=== PATIENT | male | born 1940 | race Two or more races ===

== ENCOUNTER 2020-06-16 16:25 | Outpatient (REF) | payer OTHER, SELFPAY | END 2020-06-16 16:26 | disposition home or self-care (01) | LOC: HO.LAB 16:25 | PROVIDERS: Visit Provider Internal Medicine | DX: Z20.828 Contact with and (suspected) exposure to other viral communicable diseases (principal) | CPT/HCPCS: C9803; U0003 ==

== ENCOUNTER 2020-07-02 11:10 | Inpatient (IN) | payer OTHER, SELFPAY ==
[2020-07-02 11:32] VITALS: BP 137/57; PULSE 61; RESP 20; TEMP 36.6; O2SAT 87; BMI 24.8
--- NOTE | 2020-07-02 11:37 | PC.NURSE ---
pt place on 2 l fio2 due to sats being low now 96%
[2020-07-02 11:38] VITALS: O2SAT 96
--- NOTE | 2020-07-02 11:56 | ECG_ITS ---
Test Reason : WEAKNESS Blood Pressure : / mmHG Vent. Rate : 066 BPM Atrial Rate : 066 BPM P-R Int : 000 ms QRS Dur : 178 ms QT Int : 496 ms P-R-T Axes : 000 -76 084 degrees QTc Int : 519 ms Ventricular-paced rhythm Possible Atrial fibrillation underlying Abnormal ECG When compared with ECG of 19-NOV-2013 03:57, Vent. rate has increased BY 4 BPM Referred By: Dameon Villalobos Electronically Signed By:DANAY WEBER MD
--- NOTE | 2020-07-02 11:58 | XR_ITS ---
EXAMINATION: XR CHEST CLINICAL INFORMATION: Shortness of breath,] positive COMPARISON: Chest 11/19/2013 TECHNIQUE: Frontal view of the chest was obtained. FINDINGS: The lungs are in moderate inspiration with prominent bilateral interstitium and patchy groundglass attenuation areas seen in both midlungs and left upper lobe. Heart size is enlarged. Pulmonary vascularity is normal. Mild spondylosis dorsal spine. There are solitary pacer electrode in the right ventricle XR/XR chest 1V IMPRESSION: There is bilateral prominent interstitium and groundglass attenuation seen throughout both lungs suspicious for underlying interstitial pneumonitis/infiltrate. Mild cardiomegaly
--- NOTE | 2020-07-02 12:02 | ED.GENADULT ---
HPI - General Adult General Chief complaint: Upper Respiratory Symptoms Stated complaint: +covid Time Seen by Provider: 07/02/20 11:40 Source: patient Mode of arrival: ambulatory Limitations: no limitations History of Present Illness HPI narrative: 79-year-old male who presents emergency department for evaluation shortness of breath and weakness. The patient was diagnosed with COVID on 06/16/2020 (16 days prior to evaluation). He states that over the past 1-2 days he has developed weakness and fatigue. He also states these had dyspnea on exertion but no shortness at rest. He has had a cough which is productive of sputum. He denied fever, chills, chest pain, abdominal pain, diarrhea, nausea, vomiting. He states that his weakness was concerning to him therefore he came to the emergency department for evaluation. Related Data Allergies Allergy/AdvReac Type Severity Reaction Status Date / Time No Known Allergies Allergy Unknown Unverified 03/05/20 15:58 NSAIDS due to CKD Allergy Unknown Uncoded 06/27/19 00:00 Review of Systems Review of Systems: Yes all other systems are reviewed and are negative Neurologic: Reports Abnormal speech present [facility] Past Medical History [facility] Narrative: The patient has a history of stroke with residual left-sided weakness, atrial fibrillation, pacemaker. He does smoke cigarettes, he denies alcohol tobacco use. Medical History (Updated 07/02/20 @ 14:33 by Dameon Villalobos MD) CVA (cerebral vascular accident) Diabetes mellitus GERD (gastroesophageal reflux disease) H/O: HTN (hypertension) Hyperlipidemia Pacemaker Persistent atrial fibrillation Social History Social History Advance Directives: No Advance Directives Information Provided: No Physical Exam Vital Signs: Vital Signs: Last Vital Signs Temp 97.8 F 07/02/20 11:32 Pulse 61 07/02/20 11:32 Resp 20 07/02/20 11:32 BP 137/57 L 07/02/20 11:32 Pulse Ox 96 07/02/20 11:38 Body Mass Index 24.8 Const: General: cooperative Orientation/consciousness: oriented to person and oriented to place Limitations: no limitations HENMT: Head: Yes normal to inspection, Yes normocephalic and Yes atraumatic Ears: external ears normal General nose exam: Normal external nose present Face and sinus: Yes normal facial exam Mouth: Normal oral and palatal mucosa present Throat: Yes posterior oropharynx normal Eyes: Periorbital: periorbital findings normal Eyelids: Yes eyelids normal Conjunctivae: conjunctivae normal Sclerae: sclerae normal Corneas: corneas normal Pupils: Equal, round and reactive pupils present Direct Ophthalmoscopy: normal light reflex Neck: Neck: Yes full ROM, Yes no lymphadenopathy, Yes no meningeal signs, Yes trachea midline and Yes supple Chest: Chest palpation & inspection: normal inspection of the chest and normal palpation of entire chest wall Resp: Effort & Inspection: normal respiratory effort and able to speak in complete sentences Auscultation: rales (Basis) bilateral (Left greater than right) Cardio: Rate: regular rate Rhythm: regular rhythm Heart sounds: S1 normal heart sound present, S2 normal heart sound present and no murmurs GI: Inspection: Yes normal to inspection Palpation (GI): Soft to palpation, nontender, no guarding, not rigid and No hepatosplenomegaly present : General: Yes no CVA tenderness Back/Spine/Pelvis: Back: no CVA tenderness Cervical Spine: normal cervical lordosis Thoracic/Lumbar Spine: thoracic and lumbar spine normal to inspection Skin: Lesions: no lesions Rashes: no rashes Wounds: no wounds Neuro: General: oriented to person, oriented to place and no meningeal signs Cranial nerves: Yes CN's II-XII intact bilaterally and Yes Equal, round and reactive pupils present Cognition (Neuro): normal cognition Speech: Abnormal speech present Motor exam (neuro): Other motor observations present (Weakness left upper extremity greater than left lower extremity) Extrem: General: Yes normal to inspection and Yes full ROM Left upper extremity: abnormal to inspection (Swelling of the left upper extremity secondary to immobility caused by para) Psych: Appearance: well kempt Mental Status: mental status grossly normal Speech and movement: Normal speech and movement present Affect: normal affect Attitude: cooperative Thought process: Normal thought process present Thought content: Normal thought content present Course Course Course Narrative: 79-year-old male who presents emergency department for weakness and shortness of breath, patient tested COVID 19 positive on June 16, 2020 (16 days prior to evaluation). On presentation the patient's O2 saturation on room air was 87 %. On 2 L of O2 saturation came up to 97%. Lung exam did reveal rales at the bases. I am concerned the patient may have COVID pneumonia. I did do a septic and cardiac workup on this patient. 1426: Patient's laboratory evaluation revealed a low white blood count of 3500. He had an elevated BUN creatinine 39 and 1.69 which is chronic. Patient's CRP, LDH and ferritin were all elevated at 9.2, 404, and 871. His lactic acid was normal. His troponin was detectable but not elevated. Twelve EKG revealed a paced rhythm. The patient is on Coumadin and his INR was therapeutic at 3.1. Chest x-ray revealed significant cardiomegaly with bilateral interstitial infiltrates with ground-glass appearance suggestive of a viral pneumonia. At this time I suspect the patient's worsening symptoms are due to COVID pneumonia. Given the fact that he has a viral pneumonia, I did not give this patient a fluid bolus since I do not think that he has sepsis and a fluid bolus could lead to worsening ARDS. I did order ceftriaxone 1 g IV, azithromycin 500 mg IV and Decadron 10 mg IV. I did discuss the patient's presentation with the nurse practitioner covering hospitalist service, Emily Squires and the patient will be admitted to the hospital service for further treatment. Medical Decision Making Lab Data Result diagrams: 07/02/20 12:20 07/02/20 12:20 Labs: Lab Results 07/02/20 07/02/20 07/02/20 Range/Units 12:20 12:20 12:20 WBC 10.7 (4.8-10.8) X10*3/uL RBC 3.53 L (4.60-5.80) X10*6/uL Hgb 10.8 L (14.0-18.0) g/dl Hct 33.6 L (42-52) % MCV 95.2 (80-98) fL MCH 30.6 (27.0-33.0) pg MCHC 32.1 (31.0-36.0) g/dl RDW 13.6 (11.0-16.0) % Plt Count 265 (160-400) X10*3/uL MPV 9.5 (9.4-12.4) fL Immature Gran % (Auto) 1.0 H (0.0-0.4) % Neut % (Auto) 67.4 (45-73) % Lymph % (Auto) 25.0 (20-40) % [place] % (Auto) 6.4 (2-11) % Eos % (Auto) 0.1 (0-4) % Baso % (Auto) 0.1 (0-2) % Lymph # (Auto) 2.7 (1.2-4.9) X10*3/uL [place] # (Auto) 0.7 (0.1-1.2) X10*3/uL Eos # (Auto) 0.0 (0.0-0.4) X10*3/uL Baso # (Auto) 0.0 (0.0-0.2) X10*3/uL Abs Immat Gran (auto) 0.11 H (0.00-0.03) X10*3/uL Absolute Neuts (auto) 7.2 (2.0-8.3) X10*3/uL Absolute Nucleated RBC 0.000 (0.0-0.012) X10*3/uL Nucleated RBC % (auto) 0.0 (0.0-0.2) /100WBC PT 37.0 H (10.8-13.0) SEC INR 3.1 H (0.9-1.1) APTT 36.4 (24.1-38.0) SEC D-Dimer 311 NG/ML Sodium 148 H (135-145) mmol/L Potassium 4.0 (3.3-5.1) mmol/l Chloride 110 H (96-108) mmol/L Carbon Dioxide 26 (22-29) mmol/L Anion Gap 16 (12-20) BUN 39 H (9-16) mg/dL Creatinine 1.69 H (0.5-1.4) mg/dL Estim Creat Clear Calc 33.6 Estimated GFR 39 Random Glucose 237 H (60-115) mg/dL Lactic Acid (0.5-2.0) mmol/L Calcium 8.1 L (8.4-10.2) mg/dL Ferritin 871 H (20-250) ng/mL Total Bilirubin 1.0 (0.0-1.0) mg/dL AST 53 H (5-37) U/L ALT 37 (0-40) U/L Alkaline Phosphatase 76 (39-117) U/L Lactate Dehydrogenase 404 H (118-273) U/L Troponin I High Sens (<3.5-35.0) ng/L C-Reactive Protein 9.20 H (< or = 0.50) mg/dL Total Protein 6.8 (6.5-8.0) g/dL Albumin 3.7 (3.5-5.0) g/dL Lipase 122 H (8-78) U/L 07/02/20 07/02/20 Range/Units 12:20 12:20 WBC (4.8-10.8) X10*3/uL RBC (4.60-5.80) X10*6/uL Hgb (14.0-18.0) g/dl Hct (42-52) % MCV (80-98) fL MCH (27.0-33.0) pg MCHC (31.0-36.0) g/dl RDW (11.0-16.0) % Plt Count (160-400) X10*3/uL MPV (9.4-12.4) fL Immature Gran % (Auto) (0.0-0.4) % Neut % (Auto) (45-73) % Lymph % (Auto) (20-40) % [place] % (Auto) (2-11) % Eos % (Auto) (0-4) % Baso % (Auto) (0-2) % Lymph # (Auto) (1.2-4.9) X10*3/uL [place] # (Auto) (0.1-1.2) X10*3/uL Eos # (Auto) (0.0-0.4) X10*3/uL Baso # (Auto) (0.0-0.2) X10*3/uL Abs Immat Gran (auto) (0.00-0.03) X10*3/uL Absolute Neuts (auto) (2.0-8.3) X10*3/uL Absolute Nucleated RBC (0.0-0.012) X10*3/uL Nucleated RBC % (auto) (0.0-0.2) /100WBC PT (10.8-13.0) SEC INR (0.9-1.1) APTT (24.1-38.0) SEC D-Dimer NG/ML Sodium (135-145) mmol/L Potassium (3.3-5.1) mmol/l Chloride (96-108) mmol/L Carbon Dioxide (22-29) mmol/L Anion Gap (12-20) BUN (9-16) mg/dL Creatinine (0.5-1.4) mg/dL Estim Creat Clear Calc Estimated GFR Random Glucose (60-115) mg/dL Lactic Acid 1.5 (0.5-2.0) mmol/L Calcium (8.4-10.2) mg/dL Ferritin (20-250) ng/mL Total Bilirubin (0.0-1.0) mg/dL AST (5-37) U/L ALT (0-40) U/L Alkaline Phosphatase (39-117) U/L Lactate Dehydrogenase (118-273) U/L Troponin I High Sens 23.2 (<3.5-35.0) ng/L C-Reactive Protein (< or = 0.50) mg/dL Total Protein (6.5-8.0) g/dL Albumin (3.5-5.0) g/dL Lipase (8-78) U/L Discharge Plan Discharge Clinical Impression: Pneumonia due to 2019 novel coronavirus, Hypoxia, Weakness Patient Disposition: Admitted As Inpatient
[2020-07-02 12:37] LABS: MANUAL DIFF FLAG NO
[2020-07-02 12:43] LABS: Basophils Percent Auto 0.1 % (0-2); Eosinophils Percent Auto 0.1 % (0-4); Hematocrit 33.6 % (42-52); Hemoglobin 10.8 g/dl (14.0-18.0); Imm Gran Abs Auto 0.11 X10*3/uL (0.00-0.03); Lymphocytes Absolute Auto 2.7 X10*3/uL (1.2-4.9); Mean Corpuscular HGB Conc 32.1 g/dl (31.0-36.0); Mean Corpuscular Hemoglobin 30.6 pg (27.0-33.0); Mean Corpuscular Volume 95.2 fL (80-98); Mean Platelet Volume 9.5 fL (9.4-12.4); Monocytes Absolute Auto 0.7 X10*3/uL (0.1-1.2); Monocytes Percent Auto 6.4 % (2-11); Neutrophils Absolute Auto 7.2 X10*3/uL (2.0-8.3); Neutrophils Percent Auto 67.4 % (45-73); Platelet Count 265 X10*3/uL (160-400); Red Blood Count 3.53 X10*6/uL (4.60-5.80); Red Cell Distribution Width 13.6 % (11.0-16.0); White Blood Count 10.7 X10*3/uL (4.8-10.8)
[2020-07-02 12:57] LABS: Lactic Acid 1.5 mmol/L (0.5-2.0)
[2020-07-02 12:58] LABS: INTERNATIONAL NORM RATIO 3.1 (0.9-1.1)
[2020-07-02 13:01] LABS: D Dimer 311 NG/ML; Partial Thromboplastin Time 36.4 SEC (24.1-38.0)
[2020-07-02 13:06] LABS: Troponin-I High Sensitivity 23.2 ng/L (<3.5-35.0)
[2020-07-02 13:35] LABS: Alanine Aminotransferase 37 U/L (0-40); Albumin Level 3.7 g/dL (3.5-5.0); Alkaline Phosphatase 76 U/L (39-117); Anion Gap 16 (12-20); Aspartate Amino Transferase 53 U/L (5-37); Blood Urea Nitrogen 39 mg/dL (9-16); Calcium 8.1 mg/dL (8.4-10.2); Carbon Dioxide 26 mmol/L (22-29); Chloride 110 mmol/L (96-108); Creatinine Clr Calc Pharmacy 33.6; Estimated Glomerular Filt Rate 39; Glucose Random 237 mg/dL (60-115); Lactate Dehydrogenase 404 U/L (118-273); Sodium 148 mmol/L (135-145); Total Protein 6.8 g/dL (6.5-8.0)
[2020-07-02 13:50] LABS: Ferritin 871 ng/mL (20-250)
[2020-07-02 13:57] LABS: Lipase 122 U/L (8-78)
[2020-07-02 14:00] VITALS: BP 133/57; PULSE 60; RESP 24; TEMP 36.8; O2SAT 98
--- NOTE | 2020-07-02 14:25 | PM.IMHP ---
Review of Systems Neurologic: Reports Abnormal speech present [facility] Medical History (Updated 07/02/20 @ 14:28 by Emily Squires NP) CVA (cerebral vascular accident) Diabetes mellitus GERD (gastroesophageal reflux disease) H/O: HTN (hypertension) Hyperlipidemia Pacemaker Persistent atrial fibrillation Social History Advance Directives: No Advance Directives Information Provided: No Meds Allergies Allergy/AdvReac Type Severity Reaction Status Date / Time No Known Allergies Allergy Unknown Unverified 03/05/20 15:58 NSAIDS due to CKD Allergy Unknown Uncoded 06/27/19 00:00 Physical Exam Vital Signs and Narrative: Vital Signs: Last Vital Signs Temp 97.8 F 07/02/20 11:32 Pulse 61 07/02/20 11:32 Resp 20 07/02/20 11:32 BP 137/57 L 07/02/20 11:32 Pulse Ox 96 07/02/20 11:38 Body Mass Index 24.8 Neuro: Speech: Abnormal speech present Results Labs CBC and Chem 7: 07/02/20 12:20 07/02/20 12:20 Labs: Laboratory Results - last 24 hr 07/02/20 07/02/20 07/02/20 12:20 12:20 12:20 MCV 95.2 MCH 30.6 MCHC 32.1 RDW 13.6 Plt Count 265 MPV 9.5 Immature Gran % (Auto) 1.0 H Neut % (Auto) 67.4 Lymph % (Auto) 25.0 [place] % (Auto) 6.4 Eos % (Auto) 0.1 Baso % (Auto) 0.1 Lymph # (Auto) 2.7 [place] # (Auto) 0.7 Eos # (Auto) 0.0 Baso # (Auto) 0.0 Abs Immat Gran (auto) 0.11 H Absolute Neuts (auto) 7.2 Absolute Nucleated RBC 0.000 Nucleated RBC % (auto) 0.0 PT 37.0 H INR 3.1 H APTT 36.4 D-Dimer 311 Anion Gap 16 Estim Creat Clear Calc 33.6 Estimated GFR 39 Random Glucose 237 H Lactic Acid Calcium 8.1 L Ferritin 871 H Total Bilirubin 1.0 AST 53 H ALT 37 Alkaline Phosphatase 76 Lactate Dehydrogenase 404 H Troponin I High Sens C-Reactive Protein 9.20 H Total Protein 6.8 Albumin 3.7 Lipase 122 H 07/02/20 07/02/20 12:20 12:20 MCV MCH MCHC RDW Plt Count MPV Immature Gran % (Auto) Neut % (Auto) Lymph % (Auto) [place] % (Auto) Eos % (Auto) Baso % (Auto) Lymph # (Auto) [place] # (Auto) Eos # (Auto) Baso # (Auto) Abs Immat Gran (auto) Absolute Neuts (auto) Absolute Nucleated RBC Nucleated RBC % (auto) PT INR APTT D-Dimer Anion Gap Estim Creat Clear Calc Estimated GFR Random Glucose Lactic Acid 1.5 Calcium Ferritin Total Bilirubin AST ALT Alkaline Phosphatase Lactate Dehydrogenase Troponin I High Sens 23.2 C-Reactive Protein Total Protein Albumin Lipase Imaging Radiologist's Impressions: Impressions Chest X-Ray 07/02/20 11:58 IMPRESSION: There is bilateral prominent interstitium and groundglass attenuation seen throughout both lungs suspicious for underlying interstitial pneumonitis/infiltrate. Mild cardiomegaly
[2020-07-02] MEDS: cefTRIAXone sodium 1 GM in 0.9 % Sodium Chloride 50 ML IV (14:39)
[2020-07-02 14:50] LABS: B Type Natriuretic Peptide 96 pg/mL (<100)
[2020-07-02 15:11] LABS: Procalcitonin 0.17 ng/mL
[2020-07-02] MEDS: Azithromycin 500 MG in 0.9 % Sodium Chloride 250 ML 125 MG IV (15:27)
[2020-07-02 15:52] VITALS: BP 132/59; PULSE 60; RESP 24; TEMP 36.9; O2SAT 99
--- NOTE | 2020-07-02 16:52 | PC.NURSE ---
pending report to floor to deisy rao
--- NOTE | 2020-07-02 17:08 | PC.NURSE ---
report given pending transport to floor
[2020-07-02 17:47] LABS: COVID-19 Test Positive (Negative)
--- NOTE | 2020-07-02 17:54 | P.EN_ITS ---
Event Note Date of Service: 07/02/20 Event Note: Patient seen examined case discussed with APC 79-year-old male with past medical history of CVA with left-sided hemiparesis, diabetes mellitus, GERD, hypertension, hyperlipidemia, chronic kidney disease, atrial fibrillation who presented to ER for shortness of breath,MERRILL and weakness, patient was diagnosed with COVID on 06/16/2020,no fever,no chills,no chest pain, no nausea, vomiting. Labs showed hematocrit 33.6, D-dimer 311, ferritin 871, LDH 404, CRP 9.20, l ipase 122, procalcitonin 0.17 Creatinine 1.7 INR 3.1 on exam Awake alert no distress Hypoxic respiratory failure secondary to COVID-19 infection, no sepsis will treat patient with IV dexamethasone hold off on antibiotic due to low procalcitonin continue supportive care, frequent position change incentive spirometry.
[2020-07-02 17:56] LABS: Sodium 147 mmol/L (135-145)
[2020-07-02] MEDS: Dextrose 5 % 1,000 ML 75 ML IVCONT (18:04)
[2020-07-02] MEDS: 0.9 % Sodium Chloride Flush 3 ML SYRINGE IVFLUSH (18:04)
[2020-07-02 18:08] LABS: Troponin-I High Sensitivity 16.3 ng/L (<3.5-35.0)
--- NOTE | 2020-07-02 18:38 | PC.NURSE ---
Patient admitted to [facility] [place] at approximately 1815. Vital stable on 2L NC. Started on D5 infusion for hypernatremia. Oriented to unit and room. Will continue to monitor.
[2020-07-02 19:40] VITALS: BP 146/70; PULSE 60; RESP 18; TEMP 36.7; O2SAT 96
[2020-07-02 20:49] VITALS: BP 146/70; PULSE 60
[2020-07-02] MEDS: Atorvastatin Calcium 40 MG TABLET PO (20:49)
[2020-07-02] MEDS: carvediloL 3.125 MG TABLET PO (20:49)
[2020-07-02] MEDS: Apixaban 5 MG TABLET PO (20:49)
[2020-07-03] VITALS (9 sets, daily range): BP systolic 114–156; BP diastolic 56–74; PULSE 59–70; RESP 16–20; TEMP 36.2–36.6; O2SAT 90–94
[2020-07-03] MEDS: Dextrose 5 % 1,000 ML 75 ML IVCONT ×2 (06:02→20:34)
[2020-07-03 06:26] LABS: MANUAL DIFF FLAG NO
[2020-07-03 06:41] LABS: Basophils Percent Auto 0.1 % (0-2); Hemoglobin 9.4 g/dl (14.0-18.0); Imm Gran Abs Auto 0.08 X10*3/uL (0.00-0.03); Imm Gran Pct Auto 1.1 % (0.0-0.4); Lymphocytes Absolute Auto 2.1 X10*3/uL (1.2-4.9); Lymphocytes Percent Auto 28.3 % (20-40); Mean Corpuscular HGB Conc 32.4 g/dl (31.0-36.0); Mean Corpuscular Hemoglobin 30.4 pg (27.0-33.0); Mean Corpuscular Volume 93.9 fL (80-98); Mean Platelet Volume 9.5 fL (9.4-12.4); Monocytes Absolute Auto 0.2 X10*3/uL (0.1-1.2); Monocytes Percent Auto 2.8 % (2-11); Neutrophils Absolute Auto 4.9 X10*3/uL (2.0-8.3); Neutrophils Percent Auto 67.7 % (45-73); Platelet Count 221 X10*3/uL (160-400); Red Blood Count 3.09 X10*6/uL (4.60-5.80); Red Cell Distribution Width 13.3 % (11.0-16.0); White Blood Count 7.2 X10*3/uL (4.8-10.8)
[2020-07-03 07:02] LABS: Anion Gap 14 (12-20); Blood Urea Nitrogen 38 mg/dL (9-16); Calcium 7.7 mg/dL (8.4-10.2); Carbon Dioxide 25 mmol/L (22-29); Chloride 108 mmol/L (96-108); Creatinine Clr Calc Pharmacy 37.9; Estimated Glomerular Filt Rate 45; Glucose Random 336 mg/dL (60-115); Potassium 4.1 mmol/l (3.3-5.1); Sodium 143 mmol/L (135-145)
[2020-07-03] MEDS: carvediloL 3.125 MG TABLET PO ×2 (09:08→20:35)
[2020-07-03] MEDS: Apixaban 5 MG TABLET PO ×2 (09:08→20:35)
[2020-07-03] MEDS: Losartan Potassium 50 MG TABLET PO (09:08)
[2020-07-03] MEDS: 0.9 % Sodium Chloride Flush 3 ML SYRINGE IVFLUSH ×2 (09:08→20:35)
[2020-07-03] MEDS: Omeprazole 20 MG CAPSULE.DR PO (09:10)
--- NOTE | 2020-07-03 09:45 | MHC.CM.PN ---
IMM 07/03/20 Male 79 dx covid+. [facility] His dtr is his [employer]. He uses a cane. 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 Family will provide transportation. CM will follow for change in DC needs.
[2020-07-03 11:42] LABS: Glucose, Whole Blood 349 mg/dL (60-115)
--- NOTE | 2020-07-03 13:32 | PC.NURSE ---
Addendum entered by Zluy Kendrick RN 07/03/20 16:43: new order for sliding scale. explained to pt reason for now getting insulin - pt agreeable Original Note: PT is a diabetic, reports no insulin at baseline. - took POC to get idea of blood sugar level - POC 349. No s/s of hyperglycemia. Notified MD as pt is getting IV fluids of D5 and also is being started on IV decadron. Discussing if should start pt on sliding scale - awaiting new orders at this time.
[2020-07-03] MEDS: dexAMETHasone sod phosphate 4 MG/ML VIAL 6 MG IVPUSH (14:13)
[2020-07-03 16:27] LABS: Glucose, Whole Blood 334 mg/dL (60-115)
--- NOTE | 2020-07-03 16:34 | P.PNIM_ITS ---
Subjective Subjective Date of Service: 07/03/20 Interval History: Patient seen and examined at bedside Patient Reported shortness of breath Neurologic Neurologic: Reports Abnormal speech present Physical Exam Vital Signs: Vital Signs: Last Vital Signs Temp 97.8 F 07/03/20 15:05 Pulse 59 07/03/20 15:05 Resp 20 07/03/20 15:05 BP 156/74 H 07/03/20 15:05 Pulse Ox 94 07/03/20 15:05 Body Mass Index 24.8 Const: General: cooperative Orientation/consciousness: oriented to person and oriented to place Limitations: no limitations HENMT: Head: Yes normal to inspection, Yes normocephalic and Yes atraumatic Ears: external ears normal General nose exam: Normal external nose present Face and sinus: Yes normal facial exam Mouth: Normal oral and palatal mucosa present Throat: Yes posterior oropharynx normal Eyes: Periorbital: periorbital findings normal Eyelids: Yes eyelids normal Conjunctivae: conjunctivae normal Sclerae: sclerae normal Corneas: corneas normal Pupils: Equal, round and reactive pupils present Direct Ophthalmoscopy: normal light reflex Neck: Neck: Yes full ROM, Yes no lymphadenopathy, Yes no meningeal signs, Yes trachea midline and Yes supple Chest: Chest palpation & inspection: normal inspection of the chest and normal palpation of entire chest wall Resp: Effort & Inspection: normal respiratory effort and able to speak in complete sentences Auscultation: rales (Basis) bilateral (Left greater than right) Cardio: Rate: regular rate Rhythm: regular rhythm Heart sounds: S1 normal heart sound present, S2 normal heart sound present and no murmurs GI: Inspection: Yes normal to inspection Palpation (GI): Soft to palpation, nontender, no guarding, not rigid and No hepatosplenomegaly present : General: Yes no CVA tenderness Back/Spine/Pelvis: Back: no CVA tenderness Cervical Spine: normal cervical lordosis Thoracic/Lumbar Spine: thoracic and lumbar spine normal to inspection Skin: Lesions: no lesions Rashes: no rashes Wounds: no wounds Neuro: General: oriented to person, oriented to place and no meningeal signs Cranial nerves: Yes CN's II-XII intact bilaterally and Yes Equal, round and reactive pupils present Cognition (Neuro): normal cognition Speech: Abnormal speech present Motor exam (neuro): Other motor observations present (Weakness left upper extremity greater than left lower extremity) Extrem: General: Yes normal to inspection and Yes full ROM Left upper extremity: abnormal to inspection (Swelling of the left upper extremity secondary to immobility caused by para) Psych: Appearance: well kempt Mental Status: mental status grossly normal Speech and movement: Normal speech and movement present Affect: normal affect Attitude: cooperative Thought process: Normal thought process present Thought content: Normal thought content present Objective Data Current Medications Generic Name Dose Route Start Last Admin Trade Name Freq PRN Reason Stop Dose Admin Acetaminophen 650 mg 07/02/20 17:20 Acetaminophen 325 Mg Tablet PO Q6H PRN Pain, Mild (Pain Scale 1-3) Apixaban 5 mg 07/02/20 21:00 07/03/20 09:08 Apixaban 5 Mg Tablet PO 5 mg BID LEYLA Administration Atorvastatin Calcium 40 mg 07/02/20 21:00 07/02/20 20:49 Atorvastatin Calcium 40 Mg Tablet PO 40 mg BEDTIME LEYLA Administration Carvedilol 3.125 mg 07/02/20 21:00 07/03/20 09:08 Carvedilol 3.125 Mg Tablet PO 3.125 mg BID LEYLA Administration Protocol Dexamethasone Sodium Phosphate 6 mg 07/03/20 14:00 07/03/20 14:13 Dexamethasone Sod Phosphate 4 Mg/Ml Vial IVPUSH 6 mg DAILY LEYLA Administration Dextrose 1,000 mls @ 75 mls/hr 07/02/20 17:20 07/03/20 06:02 D5w IVCONT 75 mls/hr .[id number] LEYLA Administration Insulin Human Lispro 0 unit 07/03/20 16:30 Insulin Lispro 100 Unit/Ml 3 Ml Vial SUBCUT QIDACHS [facility] Protocol Losartan Potassium 50 mg 07/03/20 09:00 07/03/20 09:08 Losartan Potassium 50 Mg Tablet PO 50 mg DAILY LEYLA Administration Protocol Omeprazole 20 mg 07/03/20 09:00 07/03/20 09:10 Omeprazole 20 Mg Capsule.Dr PO 20 mg DAILY LEYLA Administration Ondansetron HCl 4 mg 07/02/20 17:20 Ondansetron Hcl 4 Mg/2 Ml Vial IVPUSH Q8H PRN Nausea and Vomiting Pharmacy Consult 1 each 07/02/20 14:25 Consult Rx Perform Med Rec MISCELLANE ONCE PRN Consult order Sodium Chloride 3 ml 07/02/20 17:20 07/03/20 14:14 0.9 % Sodium Chloride Flush 3 Ml Syringe IVFLUSH Not Given QSHIFT LEYLA Labs CBC & Chem 7: 07/03/20 05:47 07/03/20 05:47 Microbiology Microbiology Results: Microbiology 07/02/20 12:20 Blood - Arterial Blood Culture - Preliminary No growth after 24 hours. 07/02/20 12:24 Blood - Arterial Blood Culture - Preliminary No growth after 24 hours. Assessment and Plan (1) Pneumonia due to 2019 novel coronavirus: Problem details: He has likely pulmonary damage from COVID,pulmonary fibrosis type symptoms Remdesivir and steroids not benefit this late stage Status: Acute (2) Hypoxia: Status: Acute (3) Weakness: Status: Acute (4) Persistent atrial fibrillation: Status: Acute Assessment and Plan: 79-year-old man who is being admitted with acute hypoxic respiratory failure secondary to Coronavirus infectious disease-19. 1. Acute hypoxic respiratory failure secondary to Coronavirus infectious disease-19 and viral pneumonia. continue dexamethasone . continue isolation and supportive management 2. Hypernatremia. Likely related to dehydration. continue D5 half NS sodium level closely. 3. Chronic kidney disease. Chronic . 4. Atrial fibrillation. Stable. Continue Eliquis and beta-ulises. 5. Diabetes mellitus, sliding scale, ADA diet. Continue glipizide. 6. Hypertension. Stable blood prssure. Continue losartan. 7. Gastroesophageal reflux disease. Continue PPI. 8. History of cerebrovascular accident. Continue statin. 9. Deep vein thrombosis prophylaxis with Eliquis.
--- NOTE | 2020-07-03 16:34 | P.CNID_ITS ---
History of Present Illness Data of Consult Service Date: 07/03/20 Requesting physician: Vargas Malone Primary Care Provider: MD BETTY Malik Reason for consult: COVID He presents to hospital with shortness of breath for 16 days He was diagnosed with COVID 16 days ago He has oxygen requirements 2 liters Review of Systems Neurologic: Reports Abnormal speech present PMFSH Past Medical History Medical History CVA (cerebral vascular accident) Diabetes mellitus GERD (gastroesophageal reflux disease) H/O: HTN (hypertension) Hyperlipidemia Pacemaker Persistent atrial fibrillation Family History Family history: reviewed and not pertinent Social History Social History Household Members: Family Housing: House Do you presently have visiting nurse or other home services: No Smoking Status: Former smoker Smoked in Last 30 Days: No Use of substances other than those prescribed or required for medical reasons: No Currently Displaying Signs/Symptoms of Drug Intoxication Withdrawal: No Any prior treatment program specific to substance use: No Have you been hit, kicked, punched, or otherwise hurt by someone within the past year? If so, by whom?: No Do you feel safe in your current relationship?: Yes Is there a partner from a previous relationship who is making you feel unsafe now?: No Are you made to feel afraid or neglected: No Advance Directives: No Advance Directives Information Provided: No Do you have thoughts of harming others: None Do you have a plan to hurt others: No Plan Recently lost weight without trying: No service: No Current occupational status: retired [employer] Allergies Allergy/AdvReac Type Severity Reaction Status Date / Time No Known Allergies Allergy Unknown Unverified 03/05/20 15:58 NSAIDS due to CKD Allergy Unknown Uncoded 06/27/19 00:00 Home Medications Medication Instructions Recorded Confirmed Type apixaban [Eliquis] 5 mg PO BID 07/02/20 07/02/20 History carvedilol 3.125 mg PO BID 07/02/20 07/02/20 History glipizide 5 mg PO DAILY 07/02/20 07/02/20 History losartan 50 mg PO DAILY 07/02/20 07/02/20 History melatonin 5 mg PO BEDTIME 07/02/20 07/02/20 History omeprazole 20 mg PO DAILY 07/02/20 07/02/20 History rosuvastatin 10 mg PO DAILY 07/02/20 07/02/20 History torsemide 40 mg PO BID 07/02/20 07/02/20 History Physical Exam Vital Signs: Vital Signs: Last Vital Signs Temp 97.8 F 07/03/20 15:05 Pulse 59 07/03/20 15:05 Resp 20 07/03/20 15:05 BP 156/74 H 07/03/20 15:05 Pulse Ox 94 07/03/20 15:05 Body Mass Index 24.8 Const: General: cooperative HENMT: Head: Yes normal to inspection Mouth: Normal oral and palatal mucosa present Eyes: General: appearance normal, both eyes and all related structures Resp: Effort & Inspection: normal respiratory effort GI: Inspection: Yes normal to inspection Skin: General skin exam: no rashes or lesions noted Neuro: Speech: Abnormal speech present Assessment and Plan (1) Pneumonia due to 2019 novel coronavirus: Problem details: He has likely pulmonary damage from COVID,pulmonary fibrosis type symptoms Remdesivir and steroids not benefit this late stage Status: Acute Would give oxygen support No Remdesivir or convalescent plasma May use steroids as needed (2) Hypoxia: Status: Acute Results Labs CBC & Chem 7: 07/03/20 05:47 07/03/20 05:47 Labs: Short CBC 07/03/20 Range/Units 05:47 WBC 7.2 (4.8-10.8) X10*3/uL Hgb 9.4 L (14.0-18.0) g/dl Hct 29.0 L (42-52) % Plt Count 221 (160-400) X10*3/uL BMP 07/02/20 07/03/20 17:29 05:47 Sodium 147 H 143 Potassium 4.1 Chloride 108 Carbon Dioxide 25 BUN 38 H Creatinine 1.50 H Calcium 7.7 L Microbiology Microbiology Results: Microbiology 07/02/20 12:20 Blood - Arterial Blood Culture - Preliminary No growth after 24 hours. 07/02/20 12:24 Blood - Arterial Blood Culture - Preliminary No growth after 24 hours.
[2020-07-03] MEDS: Insulin Lispro 100 UNIT/ML 3 ML VIAL SUBCUT ×2 (16:44→20:35)
[2020-07-03 20:25] LABS: Glucose, Whole Blood 333 mg/dL (60-115)
[2020-07-03] MEDS: Atorvastatin Calcium 40 MG TABLET PO (20:35)
[2020-07-04] VITALS (9 sets, daily range): BP systolic 124–144; BP diastolic 59–72; PULSE 60–62; RESP 18–20; TEMP 36.3–36.5; O2SAT 92–95
--- NOTE | 2020-07-04 05:45 | PC.NURSE ---
Alert and oriented x 4 primarily, coherent and conversant. Denied chest pain, headache or dizziness. Voided in the urinal . Lung sounds diminished with fine crackles at the bases, tolerating oxygen at 2 LPM via nasal cannula, No acute issues noted overnight. Will continue to monitor respiratory status.
[2020-07-04] MEDS: Insulin Lispro 100 UNIT/ML 3 ML VIAL SUBCUT ×4 (07:48→21:08)
[2020-07-04] MEDS: dexAMETHasone sod phosphate 4 MG/ML VIAL 6 MG IVPUSH (07:48)
[2020-07-04] MEDS: Losartan Potassium 50 MG TABLET PO (07:50)
[2020-07-04] MEDS: Apixaban 5 MG TABLET PO ×2 (07:50→21:08)
[2020-07-04] MEDS: Omeprazole 20 MG CAPSULE.DR PO (07:50)
[2020-07-04] MEDS: carvediloL 3.125 MG TABLET PO ×2 (07:50→21:08)
[2020-07-04] MEDS: 0.9 % Sodium Chloride Flush 3 ML SYRINGE IVFLUSH ×2 (07:51→15:46)
[2020-07-04] MEDS: Dextrose 5 % 1,000 ML 75 ML IVCONT ×2 (07:57→21:10)
[2020-07-04 08:05] LABS: Glucose, Whole Blood 257 mg/dL (60-115)
[2020-07-04 11:46] LABS: Glucose, Whole Blood 274 mg/dL (60-115)
--- NOTE | 2020-07-04 14:50 | HO.PM.IMPN ---
Subjective Subjective Date of Service: 07/04/20 Interval History: Patient seen and examined at bedside Patient Reported shortness of breath Neurologic Neurologic: Reports Abnormal speech present Physical Exam Vital Signs: Vital Signs: Last Vital Signs Temp 97.7 F 07/04/20 11:56 Pulse 60 07/04/20 11:56 Resp 20 07/04/20 11:56 BP 133/65 07/04/20 11:56 Pulse Ox 95 07/04/20 11:56 Body Mass Index 24.8 Const: General: cooperative Orientation/consciousness: oriented to person and oriented to place Limitations: no limitations HENMT: Head: Yes normal to inspection, Yes normocephalic and Yes atraumatic Ears: external ears normal General nose exam: Normal external nose present Face and sinus: Yes normal facial exam Mouth: Normal oral and palatal mucosa present Throat: Yes posterior oropharynx normal Eyes: Periorbital: periorbital findings normal Eyelids: Yes eyelids normal Conjunctivae: conjunctivae normal Sclerae: sclerae normal Corneas: corneas normal Pupils: Equal, round and reactive pupils present Direct Ophthalmoscopy: normal light reflex Neck: Neck: Yes full ROM, Yes no lymphadenopathy, Yes no meningeal signs, Yes trachea midline and Yes supple Chest: Chest palpation & inspection: normal inspection of the chest and normal palpation of entire chest wall Resp: Effort & Inspection: normal respiratory effort and able to speak in complete sentences Auscultation: rales (Basis) bilateral (Left greater than right) Cardio: Rate: regular rate Rhythm: regular rhythm Heart sounds: S1 normal heart sound present, S2 normal heart sound present and no murmurs GI: Inspection: Yes normal to inspection Palpation (GI): Soft to palpation, nontender, no guarding, not rigid and No hepatosplenomegaly present : General: Yes no CVA tenderness Back/Spine/Pelvis: Back: no CVA tenderness Cervical Spine: normal cervical lordosis Thoracic/Lumbar Spine: thoracic and lumbar spine normal to inspection Skin: Lesions: no lesions Rashes: no rashes Wounds: no wounds Neuro: General: oriented to person, oriented to place and no meningeal signs Cranial nerves: Yes CN's II-XII intact bilaterally and Yes Equal, round and reactive pupils present Cognition (Neuro): normal cognition Speech: Abnormal speech present Motor exam (neuro): Other motor observations present (Weakness left upper extremity greater than left lower extremity) Extrem: General: Yes normal to inspection and Yes full ROM Left upper extremity: abnormal to inspection (Swelling of the left upper extremity secondary to immobility caused by para) Psych: Appearance: well kempt Mental Status: mental status grossly normal Speech and movement: Normal speech and movement present Affect: normal affect Attitude: cooperative Thought process: Normal thought process present Thought content: Normal thought content present Objective Data Current Medications Generic Name Dose Route Start Last Admin Trade Name Freq PRN Reason Stop Dose Admin Acetaminophen 650 mg 07/02/20 17:20 Acetaminophen 325 Mg Tablet PO Q6H PRN Pain, Mild (Pain Scale 1-3) Apixaban 5 mg 07/02/20 21:00 07/04/20 07:50 Apixaban 5 Mg Tablet PO 5 mg BID LEYLA Administration Atorvastatin Calcium 40 mg 07/02/20 21:00 07/03/20 20:35 Atorvastatin Calcium 40 Mg Tablet PO 40 mg BEDTIME LEYLA Administration Carvedilol 3.125 mg 07/02/20 21:00 07/04/20 07:50 Carvedilol 3.125 Mg Tablet PO 3.125 mg BID LEYLA Administration Protocol Dexamethasone Sodium Phosphate 6 mg 07/03/20 14:00 07/04/20 07:48 Dexamethasone Sod Phosphate 4 Mg/Ml Vial IVPUSH 6 mg DAILY LEYLA Administration Dextrose 1,000 mls @ 75 mls/hr 07/02/20 17:20 07/04/20 07:57 D5w IVCONT 75 mls/hr .[id number] LEYLA Administration Insulin Human Lispro 0 unit 07/03/20 16:30 07/04/20 12:02 Insulin Lispro 100 Unit/Ml 3 Ml Vial SUBCUT 6 unit QIDACHS LEYLA Administration Protocol Losartan Potassium 50 mg 07/03/20 09:00 07/04/20 07:50 Losartan Potassium 50 Mg Tablet PO 50 mg DAILY LEYLA Administration Protocol Omeprazole 20 mg 07/03/20 09:00 07/04/20 07:50 Omeprazole 20 Mg Capsule.Dr PO 20 mg DAILY LEYLA Administration Ondansetron HCl 4 mg 07/02/20 17:20 Ondansetron Hcl 4 Mg/2 Ml Vial IVPUSH Q8H PRN Nausea and Vomiting Pharmacy Consult 1 each 07/02/20 14:25 Consult Rx Perform Med Rec MISCELLANE ONCE PRN Consult order Sodium Chloride 3 ml 07/02/20 17:20 07/04/20 07:51 0.9 % Sodium Chloride Flush 3 Ml Syringe IVFLUSH 3 ml QSHIFT LEYLA Administration Labs CBC & Chem 7: 07/03/20 05:47 07/03/20 05:47 Microbiology Microbiology Results: Microbiology 07/02/20 12:20 Blood - Arterial Blood Culture - Preliminary No growth after 48 hours. 07/02/20 12:24 Blood - Arterial Blood Culture - Preliminary No growth after 48 hours. Assessment and Plan (1) Pneumonia due to 2019 novel coronavirus: Status: Acute (2) Hypoxia: Status: Acute (3) Weakness: Status: Acute (4) Persistent atrial fibrillation: Status: Acute Assessment and Plan: 79-year-old man who is being admitted with acute hypoxic respiratory failure secondary to Coronavirus infectious disease-19. Acute hypoxic respiratory failure secondary to Coronavirus infectious disease-19 and viral pneumonia. continue dexamethasone continue isolation and supportive management Hypernatremia Likely related to dehydration resolving continue D5 half NS sodium level closely. Chronic kidney disease. Chronic Monitor kidney function Atrial fibrillation. Stable. Continue Eliquis and beta-ulises. Diabetes mellitus, continue sliding scale, ADA diet. Continue glipizide Hypertension. Stable blood prssure. Continue losartan Gastroesophageal reflux disease. Continue PPI History of cerebrovascular accident. Continue statin. Deep vein thrombosis prophylaxis with Eliquis.
[2020-07-04 16:32] LABS: Glucose, Whole Blood 334 mg/dL (60-115)
[2020-07-04 20:17] LABS: Glucose, Whole Blood 291 mg/dL (60-115)
[2020-07-04] MEDS: Atorvastatin Calcium 40 MG TABLET PO (21:08)
[2020-07-04] MEDS: traZODone HCL 25 MG HALFTAB PO (22:05)
[2020-07-05] VITALS (7 sets, daily range): BP systolic 129–148; BP diastolic 61–76; PULSE 60; RESP 17–20; TEMP 36–36.5; O2SAT 93–96
[2020-07-05] MEDS: Insulin Lispro 100 UNIT/ML 3 ML VIAL SUBCUT ×4 (09:19→20:44)
[2020-07-05] MEDS: Omeprazole 20 MG CAPSULE.DR PO (09:20)
[2020-07-05] MEDS: Apixaban 5 MG TABLET PO ×2 (09:20→20:42)
[2020-07-05] MEDS: 0.9 % Sodium Chloride Flush 3 ML SYRINGE IVFLUSH ×3 (09:20→20:47)
[2020-07-05] MEDS: Dextrose 5 % 1,000 ML 75 ML IVCONT (09:21)
[2020-07-05] MEDS: Losartan Potassium 50 MG TABLET PO (09:21)
[2020-07-05] MEDS: carvediloL 3.125 MG TABLET PO ×2 (09:24→20:44)
[2020-07-05] MEDS: dexAMETHasone sod phosphate 4 MG/ML VIAL 6 MG IVPUSH (09:28)
[2020-07-05 09:40] LABS: Glucose, Whole Blood 238 mg/dL (60-115)
[2020-07-05 09:57] LABS: Anion Gap 15 (12-20); Blood Urea Nitrogen 33 mg/dL (9-16); Calcium 7.6 mg/dL (8.4-10.2); Carbon Dioxide 22 mmol/L (22-29); Chloride 105 mmol/L (96-108); Creatinine Clr Calc Pharmacy 44.8; Estimated Glomerular Filt Rate 55; Glucose Random 249 mg/dL (60-115); Potassium 4.5 mmol/l (3.3-5.1); Sodium 137 mmol/L (135-145)
[2020-07-05 11:41] LABS: Glucose, Whole Blood 265 mg/dL (60-115)
--- NOTE | 2020-07-05 13:49 | HO.PM.IMPN ---
Subjective Subjective Date of Service: 07/06/20 Interval History: Patient seen and examined at bedside Patient Reported shortness of breath Neurologic Neurologic: Reports Abnormal speech present Physical Exam Vital Signs: Vital Signs: Last Vital Signs Temp 97.5 F 07/05/20 12:00 Pulse 60 07/05/20 12:00 Resp 18 07/05/20 12:00 BP 138/65 07/05/20 12:00 Pulse Ox 93 07/05/20 12:00 Body Mass Index 24.8 Const: General: cooperative Orientation/consciousness: oriented to person and oriented to place Limitations: no limitations HENMT: Head: Yes normal to inspection, Yes normocephalic and Yes atraumatic Ears: external ears normal General nose exam: Normal external nose present Face and sinus: Yes normal facial exam Mouth: Normal oral and palatal mucosa present Throat: Yes posterior oropharynx normal Eyes: Periorbital: periorbital findings normal Eyelids: Yes eyelids normal Conjunctivae: conjunctivae normal Sclerae: sclerae normal Corneas: corneas normal Pupils: Equal, round and reactive pupils present Direct Ophthalmoscopy: normal light reflex Neck: Neck: Yes full ROM, Yes no lymphadenopathy, Yes no meningeal signs, Yes trachea midline and Yes supple Chest: Chest palpation & inspection: normal inspection of the chest and normal palpation of entire chest wall Resp: Effort & Inspection: normal respiratory effort and able to speak in complete sentences Auscultation: rales (Basis) bilateral (Left greater than right) Cardio: Rate: regular rate Rhythm: regular rhythm Heart sounds: S1 normal heart sound present, S2 normal heart sound present and no murmurs GI: Inspection: Yes normal to inspection Palpation (GI): Soft to palpation, nontender, no guarding, not rigid and No hepatosplenomegaly present : General: Yes no CVA tenderness Back/Spine/Pelvis: Back: no CVA tenderness Cervical Spine: normal cervical lordosis Thoracic/Lumbar Spine: thoracic and lumbar spine normal to inspection Skin: Lesions: no lesions Rashes: no rashes Wounds: no wounds Neuro: General: oriented to person, oriented to place and no meningeal signs Cranial nerves: Yes CN's II-XII intact bilaterally and Yes Equal, round and reactive pupils present Cognition (Neuro): normal cognition Speech: Abnormal speech present Motor exam (neuro): Other motor observations present (Weakness left upper extremity greater than left lower extremity) Extrem: General: Yes normal to inspection and Yes full ROM Left upper extremity: abnormal to inspection (Swelling of the left upper extremity secondary to immobility caused by para) Psych: Appearance: well kempt Mental Status: mental status grossly normal Speech and movement: Normal speech and movement present Affect: normal affect Attitude: cooperative Thought process: Normal thought process present Thought content: Normal thought content present Objective Data Current Medications Generic Name Dose Route Start Last Admin Trade Name Freq PRN Reason Stop Dose Admin Acetaminophen 650 mg 07/02/20 17:20 Acetaminophen 325 Mg Tablet PO Q6H PRN Pain, Mild (Pain Scale 1-3) Apixaban 5 mg 07/02/20 21:00 07/05/20 09:20 Apixaban 5 Mg Tablet PO 5 mg BID LEYLA Administration Atorvastatin Calcium 40 mg 07/02/20 21:00 07/04/20 21:08 Atorvastatin Calcium 40 Mg Tablet PO 40 mg BEDTIME LEYLA Administration Carvedilol 3.125 mg 07/02/20 21:00 07/05/20 09:24 Carvedilol 3.125 Mg Tablet PO 3.125 mg BID LEYLA Administration Protocol Dexamethasone Sodium Phosphate 6 mg 07/03/20 14:00 07/05/20 09:28 Dexamethasone Sod Phosphate 4 Mg/Ml Vial IVPUSH 6 mg DAILY LEYLA Administration Dextrose 1,000 mls @ 75 mls/hr 07/02/20 17:20 07/05/20 09:21 D5w IVCONT 75 mls/hr .[id number] LEYLA Administration Insulin Human Lispro 0 unit 07/03/20 16:30 07/05/20 11:35 Insulin Lispro 100 Unit/Ml 3 Ml Vial SUBCUT 6 unit QIDACHS LEYLA Administration Protocol Losartan Potassium 50 mg 07/03/20 09:00 07/05/20 09:21 Losartan Potassium 50 Mg Tablet PO 50 mg DAILY LEYLA Administration Protocol Omeprazole 20 mg 07/03/20 09:00 07/05/20 09:20 Omeprazole 20 Mg Capsule.Dr PO 20 mg DAILY LEYLA Administration Ondansetron HCl 4 mg 07/02/20 17:20 Ondansetron Hcl 4 Mg/2 Ml Vial IVPUSH Q8H PRN Nausea and Vomiting Pharmacy Consult 1 each 07/02/20 14:25 Consult Rx Perform Med Rec MISCELLANE ONCE PRN Consult order Sodium Chloride 3 ml 07/02/20 17:20 07/05/20 09:20 0.9 % Sodium Chloride Flush 3 Ml Syringe IVFLUSH 3 ml QSHIFT LEYLA Administration Trazodone HCl 25 mg 07/04/20 21:38 07/04/20 22:05 Trazodone Hcl 25 Mg Halftab PO 25 mg BEDTIME PRN Administration Sleep Labs CBC & Chem 7: 07/03/20 05:47 07/05/20 09:27 Microbiology Microbiology Results: Microbiology 07/02/20 12:20 Blood - Arterial Blood Culture - Preliminary No growth after 48 hours. 07/02/20 12:24 Blood - Arterial Blood Culture - Preliminary No growth after 48 hours. Assessment and Plan (1) Pneumonia due to 2019 novel coronavirus: Status: Acute (2) Hypoxia: Status: Acute (3) Weakness: Status: Acute (4) Persistent atrial fibrillation: Status: Acute Assessment and Plan: 79-year-old man who is being admitted with acute hypoxic respiratory failure secondary to Coronavirus infectious disease-19. Acute hypoxic respiratory failure secondary to Coronavirus infectious disease-19 and viral pneumonia. continue dexamethasone continue isolation and supportive management Hypernatremia Likely related to dehydration resolved will stop D5 half NS sodium level closely. Chronic kidney disease. Chronic Monitor kidney function Atrial fibrillation. Stable. Continue Eliquis and beta-ulises. Diabetes mellitus, continue sliding scale, ADA diet. Continue glipizide Hypertension. Stable blood prssure. Continue losartan Gastroesophageal reflux disease. Continue PPI History of cerebrovascular accident. Continue statin. Deep vein thrombosis prophylaxis with Eliquis.
[2020-07-05 16:52] LABS: Glucose, Whole Blood 251 mg/dL (60-115)
[2020-07-05] MEDS: Atorvastatin Calcium 40 MG TABLET PO (20:42)
[2020-07-05 20:45] LABS: Glucose, Whole Blood 213 mg/dL (60-115)
[2020-07-06] VITALS (8 sets, daily range): BP systolic 122–136; BP diastolic 59–75; PULSE 60; RESP 19–20; TEMP 35.8–36.6; O2SAT 91–95
[2020-07-06 08:10] LABS: Glucose, Whole Blood 107 mg/dL (60-115)
[2020-07-06] MEDS: Apixaban 5 MG TABLET PO ×2 (09:38→20:52)
[2020-07-06] MEDS: 0.9 % Sodium Chloride Flush 3 ML SYRINGE IVFLUSH ×3 (09:38→20:53)
[2020-07-06] MEDS: Losartan Potassium 50 MG TABLET PO (09:39)
[2020-07-06] MEDS: carvediloL 3.125 MG TABLET PO ×2 (09:40→20:52)
[2020-07-06] MEDS: dexAMETHasone sod phosphate 4 MG/ML VIAL 6 MG IVPUSH (09:41)
[2020-07-06] MEDS: Omeprazole 20 MG CAPSULE.DR PO (09:41)
[2020-07-06 12:05] LABS: Glucose, Whole Blood 129 mg/dL (60-115)
--- NOTE | 2020-07-06 13:47 | HO.PM.IMPN ---
Subjective Subjective Date of Service: 07/06/20 Interval History: Patient seen and examined at bedside Patient Reported shortness of breath Neurologic Neurologic: Reports Abnormal speech present Physical Exam Vital Signs: Vital Signs: Last Vital Signs Temp 97.7 F 07/06/20 11:51 Pulse 60 07/06/20 11:51 Resp 20 07/06/20 11:51 BP 136/63 07/06/20 11:51 Pulse Ox 91 L 07/06/20 11:51 Body Mass Index 24.8 Const: General: cooperative Orientation/consciousness: oriented to person and oriented to place Limitations: no limitations HENMT: Head: Yes normal to inspection, Yes normocephalic and Yes atraumatic Ears: external ears normal General nose exam: Normal external nose present Face and sinus: Yes normal facial exam Mouth: Normal oral and palatal mucosa present Throat: Yes posterior oropharynx normal Eyes: Periorbital: periorbital findings normal Eyelids: Yes eyelids normal Conjunctivae: conjunctivae normal Sclerae: sclerae normal Corneas: corneas normal Pupils: Equal, round and reactive pupils present Direct Ophthalmoscopy: normal light reflex Neck: Neck: Yes full ROM, Yes no lymphadenopathy, Yes no meningeal signs, Yes trachea midline and Yes supple Chest: Chest palpation & inspection: normal inspection of the chest and normal palpation of entire chest wall Resp: Effort & Inspection: normal respiratory effort and able to speak in complete sentences Auscultation: rales (Basis) bilateral (Left greater than right) Cardio: Rate: regular rate Rhythm: regular rhythm Heart sounds: S1 normal heart sound present, S2 normal heart sound present and no murmurs GI: Inspection: Yes normal to inspection Palpation (GI): Soft to palpation, nontender, no guarding, not rigid and No hepatosplenomegaly present : General: Yes no CVA tenderness Back/Spine/Pelvis: Back: no CVA tenderness Cervical Spine: normal cervical lordosis Thoracic/Lumbar Spine: thoracic and lumbar spine normal to inspection Skin: Lesions: no lesions Rashes: no rashes Wounds: no wounds Neuro: General: oriented to person, oriented to place and no meningeal signs Cranial nerves: Yes CN's II-XII intact bilaterally and Yes Equal, round and reactive pupils present Cognition (Neuro): normal cognition Speech: Abnormal speech present Motor exam (neuro): Other motor observations present (Weakness left upper extremity greater than left lower extremity) Extrem: General: Yes normal to inspection and Yes full ROM Left upper extremity: abnormal to inspection (Swelling of the left upper extremity secondary to immobility caused by para) Psych: Appearance: well kempt Mental Status: mental status grossly normal Speech and movement: Normal speech and movement present Affect: normal affect Attitude: cooperative Thought process: Normal thought process present Thought content: Normal thought content present Objective Data Current Medications Generic Name Dose Route Start Last Admin Trade Name Freq PRN Reason Stop Dose Admin Acetaminophen 650 mg 07/02/20 17:20 Acetaminophen 325 Mg Tablet PO Q6H PRN Pain, Mild (Pain Scale 1-3) Apixaban 5 mg 07/02/20 21:00 07/06/20 09:38 Apixaban 5 Mg Tablet PO 5 mg BID LEYLA Administration Atorvastatin Calcium 40 mg 07/02/20 21:00 07/05/20 20:42 Atorvastatin Calcium 40 Mg Tablet PO 40 mg BEDTIME LEYLA Administration Carvedilol 3.125 mg 07/02/20 21:00 07/06/20 09:40 Carvedilol 3.125 Mg Tablet PO 3.125 mg BID ELYLA Administration Protocol Dexamethasone Sodium Phosphate 6 mg 07/03/20 14:00 07/06/20 09:41 Dexamethasone Sod Phosphate 4 Mg/Ml Vial IVPUSH 6 mg DAILY LEYLA Administration Insulin Human Lispro 0 unit 07/03/20 16:30 07/06/20 12:20 Insulin Lispro 100 Unit/Ml 3 Ml Vial SUBCUT Not Given QIDACHS [facility] Protocol Losartan Potassium 50 mg 07/03/20 09:00 07/06/20 09:39 Losartan Potassium 50 Mg Tablet PO 50 mg DAILY LEYLA Administration Protocol Omeprazole 20 mg 07/03/20 09:00 07/06/20 09:41 Omeprazole 20 Mg Capsule.Dr PO 20 mg DAILY LEYLA Administration Ondansetron HCl 4 mg 07/02/20 17:20 Ondansetron Hcl 4 Mg/2 Ml Vial IVPUSH Q8H PRN Nausea and Vomiting Pharmacy Consult 1 each 07/02/20 14:25 Consult Rx Perform Med Rec MISCELLANE ONCE PRN Consult order Sodium Chloride 3 ml 07/02/20 17:20 07/06/20 09:38 0.9 % Sodium Chloride Flush 3 Ml Syringe IVFLUSH 3 ml QSHIFT LEYLA Administration Trazodone HCl 25 mg 07/04/20 21:38 07/04/20 22:05 Trazodone Hcl 25 Mg Halftab PO 25 mg BEDTIME PRN Administration Sleep Labs CBC & Chem 7: 07/03/20 05:47 07/05/20 09:27 Microbiology Microbiology Results: Microbiology 07/02/20 12:20 Blood - Arterial Blood Culture - Preliminary No growth after 48 hours. 07/02/20 12:24 Blood - Arterial Blood Culture - Preliminary No growth after 48 hours. Assessment and Plan (1) Pneumonia due to 2019 novel coronavirus: Status: Acute (2) Hypoxia: Status: Acute (3) Weakness: Status: Acute (4) Persistent atrial fibrillation: Status: Acute Assessment and Plan: 79-year-old man who is being admitted with acute hypoxic respiratory failure secondary to Coronavirus infectious disease-19. Acute hypoxic respiratory failure secondary to Coronavirus infectious disease-19 and viral pneumonia. continue dexamethasone continue isolation and supportive management continue oxygen supplementation weaned down as tolerated Hypernatremia Likely related to dehydration resolved D5 half NS stopped sodium level closely. Chronic kidney disease. Chronic Monitor kidney function Atrial fibrillation. Stable. Continue Eliquis and beta-ulises. Diabetes mellitus, continue sliding scale, ADA diet. Continue glipizide Hypertension. Stable blood prssure. Continue losartan Gastroesophageal reflux disease. Continue PPI History of cerebrovascular accident. Continue statin. Deep vein thrombosis prophylaxis with Eliquis.
--- NOTE | 2020-07-06 14:24 | MHC.CM.PN ---
DP home with resumption of [employer]. Family will provide transportation. CM will follow.
[2020-07-06 16:35] LABS: Glucose, Whole Blood 256 mg/dL (60-115)
[2020-07-06] MEDS: Insulin Lispro 100 UNIT/ML 3 ML VIAL SUBCUT ×2 (17:03→20:53)
[2020-07-06 20:16] LABS: Glucose, Whole Blood 213 mg/dL (60-115)
[2020-07-06] MEDS: Atorvastatin Calcium 40 MG TABLET PO (20:52)
[2020-07-07 04:00] VITALS: BP 137/72; PULSE 65; RESP 18; TEMP 36.9; O2SAT 92
[2020-07-07 07:03] VITALS: BP 119/60; PULSE 60; RESP 18; TEMP 36.6; O2SAT 94
[2020-07-07 08:03] LABS: Glucose, Whole Blood 145 mg/dL (60-115)
[2020-07-07 08:18] VITALS: BP 119/60; PULSE 60
[2020-07-07] MEDS: Apixaban 5 MG TABLET PO (08:18)
[2020-07-07] MEDS: 0.9 % Sodium Chloride Flush 3 ML SYRINGE IVFLUSH (08:18)
[2020-07-07] MEDS: carvediloL 3.125 MG TABLET PO (08:18)
[2020-07-07] MEDS: Losartan Potassium 50 MG TABLET PO (08:18)
[2020-07-07] MEDS: Omeprazole 20 MG CAPSULE.DR PO (08:19)
[2020-07-07] MEDS: dexAMETHasone sod phosphate 4 MG/ML VIAL 6 MG IVPUSH (08:20)
[2020-07-07 10:41] VITALS: PULSE 60; PULSE 68; O2SAT 87; O2SAT 91; O2SAT 94
[2020-07-07 10:55] VITALS: BP 119/60; PULSE 60
[2020-07-07 11:30] VITALS: BP 99/47; PULSE 60; RESP 16; TEMP 36.6; O2SAT 94
[2020-07-07 11:41] LABS: Glucose, Whole Blood 186 mg/dL (60-115)
--- NOTE | 2020-07-07 11:43 | MHC.CM.PN ---
Patient will be discharged home today with PT services from [facility]. Family will provide transport, lives with granddaughter. Patient and nurse aware.
[2020-07-07] MEDS: Insulin Lispro 100 UNIT/ML 3 ML VIAL SUBCUT (11:45)
--- NOTE | 2020-07-07 12:03 | W.MHC.F2F ---
Service Date Service Date: 07/07/20 Encounter Date of encounter: 07/05/20 Reasons for Services Reason for physical therapy: home safety and mobility and therapeutic exercises Overseeing Care: Juan M Name Homebound: Leaving the home is medically contraindicated at this time without the asist of a device and/or another person due th the listed conditions above and below. Homebound supporting statement: COVID weakness Certification: Based on the above findings, I certify that this patient is confined to the home and needs intermittent intermediate care, physical therapy and/or speech therapy, or continues to need occupational therapy. The patient is under my care, and I have initiated the establishment of the plan of care. The patient will be followed by a physician who will periodically review the plan of care.
--- NOTE | 2020-07-07 12:09 | PM.DS ---
DS: Providers Provider Date of Service: 07/07/20 Date of admission: 07/02/20 15:29 Primary care physician: Juan M Rogers MD Consults: 07/02/20 17:20 Consult to Infectious Diseases Routine Consulting Provider: Suzy Kurtz Reason for consultation: COVID 19 Has provider been notified: No DS: Diagnosis Discharge Diagnosis (1) Pneumonia due to 2019 novel coronavirus: Status: Acute (2) Hypoxia: Status: Acute (3) Weakness: Status: Acute (4) Persistent atrial fibrillation: Status: Acute DS: Medications Discharge Medications Home Medications: Home Medications Medication Instructions Recorded Confirmed Eliquis 5 mg PO BID 07/02/20 07/02/20 carvedilol 3.125 mg PO BID 07/02/20 07/02/20 glipizide 5 mg PO DAILY 07/02/20 07/02/20 losartan 50 mg PO DAILY 07/02/20 07/02/20 melatonin 5 mg PO BEDTIME 07/02/20 07/02/20 omeprazole 20 mg PO DAILY 07/02/20 07/02/20 rosuvastatin 10 mg PO DAILY 07/02/20 07/02/20 torsemide 40 mg PO BID 07/02/20 07/02/20 Previous Rx's Medication Instructions Recorded dexamethasone 6 mg PO DAILY #4 tab 07/07/20 DS: Summary Hospital Course Hospital Course: HPI 79-year-old man presented with complaint of worsening shortness of breath over the last week. He was diagnosed with Coronavirus on June 16 and reported that he had been quarrenting in his home. However, over the last week he has developed increasing weakness, shortness of breath and fatigue. He denied any fever, chills, chest pain, nausea, vomiting, diarrhea. In the ER, chest x-ray showed bilateral prominent interstitium and ground-glass attenuation in both lungs. He was noted to be hypoxic with oxygen saturation of 87%. Sodium 148, creatinine 1.69 with history of chronic kidney disease. Ferritin 871, LDH 404, CRP 9.20, procalcitonin 0.17, BNP 96. He was given azithromycin, Rocephin, and Decadron while in the ER. He will be admitted for further management and treatment of acute hypoxic respiratory failure secondary to COVID-19. Hospital course 79-year-old male admitted with acute hypoxic respiratory failure likely secondary to COVID pneumonia, patient was started on oxygen supplementation IV dexamethasone and supportive management, patient also found to have mild hypernatremia received D5 NS, hypernatremia resolved, patient's symptoms improved, patient was requiring 2 L of oxygen and was stable, patient was evaluated for home oxygen, patient qualifies for 2 L of oxygen, patient was stable discharged home with visiting nurse on home oxygen and p.o. dexamethasone Time Spent with Patient Time attestation: Total time spent providing and/or coordinating discharge services: Discharge coordination time: Greater than 30 minutes Physical Exam Vital Signs: Vital Signs: Last Vital Signs Temp 97.8 F 07/07/20 11:30 Pulse 60 07/07/20 11:30 Resp 16 07/07/20 11:30 BP 99/47 L 07/07/20 11:30 Pulse Ox 94 07/07/20 11:30 Body Mass Index 24.8 DS: Data Data Completed and Pending Labs on day of discharge: Laboratory Tests 07/02/20 07/02/20 07/02/20 12:20 12:20 12:20 WBC 10.7 RBC 3.53 L Hgb 10.8 L Hct 33.6 L MCV 95.2 MCH 30.6 MCHC 32.1 RDW 13.6 Plt Count 265 MPV 9.5 Immature Gran % (Auto) 1.0 H Neut % (Auto) 67.4 Lymph % (Auto) 25.0 Garfield % (Auto) 6.4 Eos % (Auto) 0.1 Baso % (Auto) 0.1 Lymph # (Auto) 2.7 Garfield # (Auto) 0.7 Eos # (Auto) 0.0 Baso # (Auto) 0.0 Abs Immat Gran (auto) 0.11 H Absolute Neuts (auto) 7.2 Absolute Nucleated RBC 0.000 Nucleated RBC % (auto) 0.0 PT 37.0 H INR 3.1 H APTT 36.4 D-Dimer 311 Sodium 148 H Potassium 4.0 Chloride 110 H Carbon Dioxide 26 Anion Gap 16 BUN 39 H Creatinine 1.69 H Estim Creat Clear Calc 33.6 Estimated GFR 39 POC Glucose Random Glucose 237 H Lactic Acid Calcium 8.1 L Ferritin 871 H Total Bilirubin 1.0 AST 53 H ALT 37 Alkaline Phosphatase 76 Lactate Dehydrogenase 404 H Troponin I High Sens C-Reactive Protein 9.20 H B-Natriuretic Peptide Total Protein 6.8 Albumin 3.7 Lipase 122 H Procalcitonin COVID-19 (JOÃO) COVID-19 [facility] 07/02/20 07/02/20 07/02/20 12:20 12:20 12:20 WBC RBC Hgb Hct MCV MCH MCHC RDW Plt Count MPV Immature Gran % (Auto) Neut % (Auto) Lymph % (Auto) [place] % (Auto) Eos % (Auto) Baso % (Auto) Lymph # (Auto) [place] # (Auto) Eos # (Auto) Baso # (Auto) Abs Immat Gran (auto) Absolute Neuts (auto) Absolute Nucleated RBC Nucleated RBC % (auto) PT INR APTT D-Dimer Sodium Potassium Chloride Carbon Dioxide Anion Gap BUN Creatinine Estim Creat Clear Calc Estimated GFR POC Glucose Random Glucose Lactic Acid 1.5 Calcium Ferritin Total Bilirubin AST ALT Alkaline Phosphatase Lactate Dehydrogenase Troponin I High Sens 23.2 C-Reactive Protein B-Natriuretic Peptide 96 Total Protein Albumin Lipase Procalcitonin 0.17 COVID-19 ([facility]) COVID-19 [facility] 07/02/20 07/02/20 07/02/20 17:29 17:29 17:29 WBC RBC Hgb Hct MCV MCH MCHC RDW Plt Count MPV Immature Gran % (Auto) Neut % (Auto) Lymph % (Auto) [place]field % (Auto) Eos % (Auto) Baso % (Auto) Lymph # (Auto) [place] # (Auto) Eos # (Auto) Baso # (Auto) Abs Immat Gran (auto) Absolute Neuts (auto) Absolute Nucleated RBC Nucleated RBC % (auto) PT INR APTT D-Dimer Sodium 147 H Potassium Chloride Carbon Dioxide Anion Gap BUN Creatinine Estim Creat Clear Calc Estimated GFR POC Glucose Random Glucose Lactic Acid Calcium Ferritin Total Bilirubin AST ALT Alkaline Phosphatase Lactate Dehydrogenase Troponin I High Sens 16.3 C-Reactive Protein B-Natriuretic Peptide Total Protein Albumin Lipase Procalcitonin COVID-19 ([facility]O) Positive A COVID-19 [facility] See Note 07/03/20 07/03/20 07/03/20 05:47 05:47 11:33 WBC 7.2 RBC 3.09 L Hgb 9.4 L Hct 29.0 L MCV 93.9 MCH 30.4 MCHC 32.4 RDW 13.3 Plt Count 221 MPV 9.5 Immature Gran % (Auto) 1.1 H Neut % (Auto) 67.7 Lymph % (Auto) 28.3 Garfield % (Auto) 2.8 Eos % (Auto) 0.0 Baso % (Auto) 0.1 Lymph # (Auto) 2.1 Garfield # (Auto) 0.2 Eos # (Auto) 0.0 Baso # (Auto) 0.0 Abs Immat Gran (auto) 0.08 H Absolute Neuts (auto) 4.9 Absolute Nucleated RBC 0.000 Nucleated RBC % (auto) 0.0 PT INR APTT D-Dimer Sodium 143 Potassium 4.1 Chloride 108 Carbon Dioxide 25 Anion Gap 14 BUN 38 H Creatinine 1.50 H Estim Creat Clear Calc 37.9 Estimated GFR 45 POC Glucose 349 H Random Glucose 336 H D Lactic Acid Calcium 7.7 L Ferritin Total Bilirubin AST ALT Alkaline Phosphatase Lactate Dehydrogenase Troponin I High Sens C-Reactive Protein B-Natriuretic Peptide Total Protein Albumin Lipase Procalcitonin COVID-19 ([facility]) COVID-19 [facility] 07/03/20 07/03/20 07/04/20 16:19 20:05 07:44 WBC RBC Hgb Hct MCV MCH MCHC RDW Plt Count MPV Immature Gran % (Auto) Neut % (Auto) Lymph % (Auto) [place]field % (Auto) Eos % (Auto) Baso % (Auto) Lymph # (Auto) [place] # (Auto) Eos # (Auto) Baso # (Auto) Abs Immat Gran (auto) Absolute Neuts (auto) Absolute Nucleated RBC Nucleated RBC % (auto) PT INR APTT D-Dimer Sodium Potassium Chloride Carbon Dioxide Anion Gap BUN Creatinine Estim Creat Clear Calc Estimated GFR POC Glucose 334 H 333 H 257 H Random Glucose Lactic Acid Calcium Ferritin Total Bilirubin AST ALT Alkaline Phosphatase Lactate Dehydrogenase Troponin I High Sens C-Reactive Protein B-Natriuretic Peptide Total Protein Albumin Lipase Procalcitonin COVID-19 ([facility]) COVID-19 [facility] 07/04/20 07/04/20 07/04/20 11:37 16:26 20:02 WBC RBC Hgb Hct MCV MCH MCHC RDW Plt Count MPV Immature Gran % (Auto) Neut % (Auto) Lymph % (Auto) Garfield % (Auto) Eos % (Auto) Baso % (Auto) Lymph # (Auto) [place] # (Auto) Eos # (Auto) Baso # (Auto) Abs Immat Gran (auto) Absolute Neuts (auto) Absolute Nucleated RBC Nucleated RBC % (auto) PT INR APTT D-Dimer Sodium Potassium Chloride Carbon Dioxide Anion Gap BUN Creatinine Estim Creat Clear Calc Estimated GFR POC Glucose 274 H 334 H 291 H Random Glucose Lactic Acid Calcium Ferritin Total Bilirubin AST ALT Alkaline Phosphatase Lactate Dehydrogenase Troponin I High Sens C-Reactive Protein B-Natriuretic Peptide Total Protein Albumin Lipase Procalcitonin COVID-19 ([facility]) COVID-19 Clin Com 07/05/20 07/05/20 07/05/20 09:08 09:27 11:23 WBC RBC Hgb Hct MCV MCH MCHC RDW Plt Count MPV Immature Gran % (Auto) Neut % (Auto) Lymph % (Auto) [place]field % (Auto) Eos % (Auto) Baso % (Auto) Lymph # (Auto) [place] # (Auto) Eos # (Auto) Baso # (Auto) Abs Immat Gran (auto) Absolute Neuts (auto) Absolute Nucleated RBC Nucleated RBC % (auto) PT INR APTT D-Dimer Sodium 137 Potassium 4.5 Chloride 105 Carbon Dioxide 22 Anion Gap 15 BUN 33 H Creatinine 1.27 Estim Creat Clear Calc 44.8 Estimated GFR 55 POC Glucose 238 H 265 H Random Glucose 249 H Lactic Acid Calcium 7.6 L Ferritin Total Bilirubin AST ALT Alkaline Phosphatase Lactate Dehydrogenase Troponin I High Sens C-Reactive Protein B-Natriuretic Peptide Total Protein Albumin Lipase Procalcitonin COVID-19 ([facility]) COVID-19 Clin Com 07/05/20 07/05/20 07/06/20 16:44 20:21 07:55 WBC RBC Hgb Hct MCV MCH MCHC RDW Plt Count MPV Immature Gran % (Auto) Neut % (Auto) Lymph % (Auto) [place]field % (Auto) Eos % (Auto) Baso % (Auto) Lymph # (Auto) [place] # (Auto) Eos # (Auto) Baso # (Auto) Abs Immat Gran (auto) Absolute Neuts (auto) Absolute Nucleated RBC Nucleated RBC % (auto) PT INR APTT D-Dimer Sodium Potassium Chloride Carbon Dioxide Anion Gap BUN Creatinine Estim Creat Clear Calc Estimated GFR POC Glucose 251 H 213 H 107 Random Glucose Lactic Acid Calcium Ferritin Total Bilirubin AST ALT Alkaline Phosphatase Lactate Dehydrogenase Troponin I High Sens C-Reactive Protein B-Natriuretic Peptide Total Protein Albumin Lipase Procalcitonin COVID-19 ([facility]) COVID-19 Clin Com 01/07/06/20 07/06/20 11:51 16:32 20:07 WBC RBC Hgb Hct MCV MCH MCHC RDW Plt Count MPV Immature Gran % (Auto) Neut % (Auto) Lymph % (Auto) [place]field % (Auto) Eos % (Auto) Baso % (Auto) Lymph # (Auto) [place]field # (Auto) Eos # (Auto) Baso # (Auto) Abs Immat Gran (auto) Absolute Neuts (auto) Absolute Nucleated RBC Nucleated RBC % (auto) PT INR APTT D-Dimer Sodium Potassium Chloride Carbon Dioxide Anion Gap BUN Creatinine Estim Creat Clear Calc Estimated GFR POC Glucose 129 H 256 H 213 H Random Glucose Lactic Acid Calcium Ferritin Total Bilirubin AST ALT Alkaline Phosphatase Lactate Dehydrogenase Troponin I High Sens C-Reactive Protein B-Natriuretic Peptide Total Protein Albumin Lipase Procalcitonin COVID-19 ([facility]) [employer] 07/07/20 07/07/20 07:06 11:34 WBC RBC Hgb Hct MCV MCH MCHC RDW Plt Count MPV Immature Gran % (Auto) Neut % (Auto) Lymph % (Auto) [place]field % (Auto) Eos % (Auto) Baso % (Auto) Lymph # (Auto) [place]field # (Auto) Eos # (Auto) Baso # (Auto) Abs Immat Gran (auto) Absolute Neuts (auto) Absolute Nucleated RBC Nucleated RBC % (auto) PT INR APTT D-Dimer Sodium Potassium Chloride Carbon Dioxide Anion Gap BUN Creatinine Estim Creat Clear Calc Estimated GFR POC Glucose 145 H 186 H Random Glucose Lactic Acid Calcium Ferritin Total Bilirubin AST ALT Alkaline Phosphatase Lactate Dehydrogenase Troponin I High Sens C-Reactive Protein B-Natriuretic Peptide Total Protein Albumin Lipase Procalcitonin COVID-19 ([facility]) COVID-19 [facility] Preliminary micro results at discharge 07/02/20 12:20 Blood Culture - Preliminary Blood - Arterial No growth after 48 hours. 07/02/20 12:24 Blood Culture - Preliminary Blood - Arterial No growth after 48 hours. Discharge Plan Discharge Anticipated Discharge Date/Time: 07/07/20 11:25 Patient Disposition: Home Health Service Referrals: Name,MD Juan M [Primary Care Provider] - Discharge Medications: New dexamethasone 6 mg tablet 6 mg PO DAILY Qty: 4 RF: 0 Continued losartan 50 mg Tablet 50 mg PO DAILY RF: 0 carvedilol 3.125 mg Tablet 3.125 mg PO BID RF: 0 omeprazole 20 mg Capsule,Delayed Release(Dr/Ec) 20 mg PO DAILY RF: 0 rosuvastatin 10 mg Tablet 10 mg PO DAILY RF: 0 melatonin 5 mg Tablet 5 mg PO BEDTIME RF: 0 Eliquis 5 mg Tablet 5 mg PO BID RF: 0 torsemide 20 mg Tablet 40 mg PO BID RF: 0 glipizide 5 mg Tablet 5 mg PO DAILY RF: 0 Discharge Orders: Discharge Order (Routine); Ordered 07/07/20 Ordered By: Vargas Malone Diet: advance to usual diet Activity on Discharge: As tolerated Discharge Date/Time: 07/07/20 15:38 Visit Report Forms: Patient Portal Discharge page Care Plan Goals: treat covid Health Concerns: covid Plan of Treatment: po dexa home oxygen
== END 2020-07-07 15:38 | disposition home health service (06) | DRG 177 ==
LOC: HO.ED 14:33 → HO.IMC 16:20
PROVIDERS: Nurse Practitioner Acute Care; Admitting Provider Hospitalist; Emergency Provider Emergency Medicine Emergency Medical Services; PCP Internal Medicine Geriatric Medicine; Visit Provider Internal Medicine
DX: U07.1 COVID-19 (principal); J12.82 Pneumonia due to coronavirus disease 2019; I69.954 Hemiplegia and hemiparesis following unspecified cerebrovascular disease affecting left non-dominant side; I48.19 Other persistent atrial fibrillation; E87.0 Hyperosmolality and hypernatremia; K21.9 Gastro-esophageal reflux disease without esophagitis; I12.9 Hypertensive chronic kidney disease with stage 1 through stage 4 chronic kidney disease, or unspecified chronic kidney disease; N18.9 Chronic kidney disease, unspecified; E86.0 Dehydration; Z79.01 Long term (current) use of anticoagulants; Z79.899 Other long term (current) drug therapy
CPT/HCPCS: 11104; 36415; 71045; 80048; 80053; 82728; 82947; 83605; 83615; 83690; 83880; 84145; 84295; 84484; 85025; 85379; 85610; 85730; 86140; 87040; 87635; 93005; 96365; 96366; 96367; 96375; 97162; 99285; J0456; J0696; J1100

== ENCOUNTER 2020-07-16 16:30 | Inpatient (IN) | payer OTHER, SELFPAY ==
[2020-07-16] VITALS (7 sets, daily range): BP systolic 100–120; BP diastolic 46–60; PULSE 59–66; RESP 16–18; TEMP 36.4–36.9; O2SAT 94–98; BMI 26.9
--- NOTE | 2020-07-16 18:47 | ED.WEAKNESS ---
HPI - Weakness General Chief complaint: Weakness Stated complaint: ?Dheydration/Weakness Time Seen by Provider: 07/16/20 18:45 Source: patient Mode of arrival: ambulatory Limitations: no limitations History of Present Illness HPI Narrative: This is a 79-year-old male with past medical history that is significant for chronic kidney disease, atrial fibrillation chronically anticoagulated on Eliquis and on a beta ulises, insulin-dependent diabetes, hypertension on losartan, gastroesophageal reflux disease on PPI, history of a CVA on statin who had some COVID symptoms and contracted COVID July 02 he had COVID pneumonia on a and rib hypoxic respiratory failure secondary to this required some oxygen and was discharged to home on the of this month states he got somewhat better and over the past several days he has not had any energy and feels overall weak. Denies any fever or chills. States he called his primary care doctor with complaint of a generalized weakness and lack of energy and was advised to come to the emergency room. States he has been taking his medication as prescribed No recent travel No change in medication Has not required any oxygen for the past 5 days or so. Complaint: generalized weakness Onset (ago): day(s) Location: generalized Severity: moderate Relieving factors: none Exacerbating factors: none Related Data Home Medications Medication Instructions Recorded Confirmed Eliquis 5 mg PO BID 07/02/20 07/02/20 carvedilol 3.125 mg PO BID 07/02/20 07/02/20 glipizide 5 mg PO DAILY 07/02/20 07/02/20 losartan 50 mg PO DAILY 07/02/20 07/02/20 melatonin 5 mg PO BEDTIME 07/02/20 07/02/20 omeprazole 20 mg PO DAILY 07/02/20 07/02/20 rosuvastatin 10 mg PO DAILY 07/02/20 07/02/20 torsemide 40 mg PO BID 07/02/20 07/02/20 Previous Rx's Medication Instructions Recorded dexamethasone 6 mg PO DAILY #4 tab 07/07/20 Allergies Allergy/AdvReac Type Severity Reaction Status Date / Time No Known Allergies Allergy Unknown Unverified 03/05/20 15:58 NSAIDS due to CKD Allergy Unknown Uncoded 06/27/19 00:00 Review of Systems Review of Systems: Constitutional: No Weight loss, No Fever, No Chills, No Night Sweats, No Fatigue, No Malaise ENT/Mouth: No Hearing loss, No Ear Pain, No Nasal Congestion, No Sinus Pain, No Hoarseness, No sore throat, No Rhinorrhea, No Swallowing Difficulty Eyes: No Eye Pain, No Swelling, No Redness, No Foreign Body, No Discharge, No Vision Changes Cardiovascular: No Chest Pain, No SOB, No Dyspnea on Exertion, No Orthopnea, No Edema, No Palpitations Respiratory: No Cough, No Sputum, No Wheezing, No Smoke Exposure, No Dyspnea . Gastrointestinal: No Nausea, No Vomiting, No Diarrhea, No Constipation, No abdominal Pain, No Hematochezia, No Melena Genitourinary: No Dysuria, No Urinary Frequency, No Hematuria, No Urinary Incontinence, No Urgency, No Flank Pain, No Urinary Flow Changes, No Hesitancy Musculoskeletal: No joint pain, No Myalgias, No Joint Swelling Skin: No Skin Lesions, No rash Neuro: + Weakness, No Numbness, No Paresthesias, No Loss of Consciousness, No Dizziness, No Headache Psych: No Social Issues Heme/Lymph: No Bruising, No Bleeding,No Lymphadenopathy Endocrine: No Polyuria, No Polydipsia, No Temperature Intolerance Yes all other systems are reviewed and are negative FOR[facility]LY [facility] Past Medical History Medical History CVA (cerebral vascular accident) Diabetes mellitus GERD (gastroesophageal reflux disease) H/O: HTN (hypertension) Hyperlipidemia Pacemaker Persistent atrial fibrillation Social History Social History Household Members: Family Housing: House Alcohol intake: never Smoking Status: Former smoker Use of substances other than those prescribed or required for medical reasons: No Advance Directives: No Advance Directives Information Provided: No service: No Current occupational status: retired Physical Exam Vital Signs: Vital Signs: Last Vital Signs Temp 97.6 F 07/16/20 18:55 Pulse 61 07/16/20 21:10 Resp 18 07/16/20 21:10 BP 103/46 L 07/16/20 21:10 Pulse Ox 98 07/16/20 21:10 Body Mass Index 26.9 Reviewed Const: Other: Frail, elderly General: cooperative; No acute distress or intoxicated appearing Nutritional Appearance: average body habitus Orientation/consciousness: patient oriented x3 HENMT: Head: Yes normal to inspection Ears: hearing grossly normal bilaterally Eyes: General: appearance normal, both eyes and all related structures Visual Don: normal visual don by confrontation Neck: Neck: Yes normal visual inspection, No positive Brudzinski's sign, No positive Kernig's sign and No tender Thyroid: Thyroid normal Chest: Chest palpation & inspection: normal inspection of the chest Resp: Effort & Inspection: normal respiratory effort Auscultation: clear to auscultation bilaterally Cardio: Jugular venous distension: no JVD Rhythm: abnormal rhythm (V paced) GI: Inspection: Yes normal to inspection Percussion: Yes normal to percussion Auscultation: normal bowel sounds : General: Yes no CVA tenderness Back/Spine/Pelvis: Back: no CVA tenderness Skin: General skin exam: no rashes or lesions noted Neuro: General: patient oriented x3 Extrem: General: Yes normal to inspection Course Course Course Narrative: In review 79-year-old male with significant history as noted above presenting with generalized weakness decreased p.o. intake status post hospitalization for COVID 19 related pneumonia/hypoxic respiratory failure in relation to his respiratory symptoms he reports he is feeling much better he denies any fever or chills no cough. Workup reveals CKD with acute GOOD and electrolyte derangements consistent with COVID-19 disease. No signs to suggest bacterial infection. Patient hydrated bladder had 200 cc on the bedside bladder scan Burrell catheter placed given fluids and urine lytes studies in. Case discussed with Nephrology Dr. Munoz as well as hospitalist for admission. Consultations Consultation #1: [id number] Case discussed with hospitalist for admission accepted to service Dr. Veloz Consultation #2: [id number] Case discussed with Nephrology Alexander- agreeable plan will follow in the morning urine studies. MDM - Weakness Differential Diagnosis Differential diagnosis: Likely anemia, hypoglycemia and dehydration; Unlikely UTI, hypothyroidism, rhabdomyolysis and sepsis Medical Records Attestation: I reviewed the patient's medical records. Lab Data Attestation: I reviewed the patient's lab results. Result diagrams: 07/16/20 20:04 07/16/20 20:04 Labs: Lab Results 07/16/20 07/16/20 07/16/20 Range/Units 20:04 20:04 20:04 WBC 15.8 H (4.8-10.8) X10*3/uL RBC 4.22 L D (4.60-5.80) X10*6/uL Hgb 12.8 L D (14.0-18.0) g/dl Hct 38.0 L D (42-52) % MCV 90.0 (80-98) fL MCH 30.3 (27.0-33.0) pg MCHC 33.7 (31.0-36.0) g/dl RDW 14.0 (11.0-16.0) % Plt Count 194 (160-400) X10*3/uL MPV 10.5 (9.4-12.4) fL Immature Gran % (Auto) 0.4 (0.0-0.4) % Neut % (Auto) 69.6 (45-73) % Lymph % (Auto) 24.7 (20-40) % [place] % (Auto) 4.6 (2-11) % Eos % (Auto) 0.6 (0-4) % Baso % (Auto) 0.1 (0-2) % Lymph # (Auto) 3.9 (1.2-4.9) X10*3/uL [place] # (Auto) 0.7 (0.1-1.2) X10*3/uL Eos # (Auto) 0.1 (0.0-0.4) X10*3/uL Baso # (Auto) 0.0 (0.0-0.2) X10*3/uL Abs Immat Gran (auto) 0.06 H (0.00-0.03) X10*3/uL Absolute Neuts (auto) 11.0 H (2.0-8.3) X10*3/uL Absolute Nucleated RBC 0.000 (0.0-0.012) X10*3/uL Nucleated RBC % (auto) 0.0 (0.0-0.2) /100WBC PT 27.2 H D (10.8-13.0) SEC INR 2.3 H (0.9-1.1) APTT 38.5 H (24.1-38.0) SEC Sodium 136 (135-145) mmol/L Potassium 4.1 (3.3-5.1) mmol/l Chloride 94 L (96-108) mmol/L Carbon Dioxide 27 (22-29) mmol/L Anion Gap 19 (12-20) BUN 88 H* D (9-16) mg/dL Creatinine 2.31 H (0.5-1.4) mg/dL Estim Creat Clear Calc 24.6 Estimated GFR 28 Random Glucose 204 H (60-115) mg/dL Lactic Acid (0.5-2.0) mmol/L Calcium 8.2 L D (8.4-10.2) mg/dL Ferritin 1157 H (20-250) ng/mL Total Bilirubin 1.9 H (0.0-1.0) mg/dL AST 34 (5-37) U/L ALT 30 (0-40) U/L Alkaline Phosphatase 80 (39-117) U/L Lactate Dehydrogenase 348 H (118-273) U/L Troponin I High Sens (<3.5-35.0) ng/L C-Reactive Protein 0.26 (< or = 0.50) mg/dL Total Protein 7.0 (6.5-8.0) g/dL Albumin 3.6 (3.5-5.0) g/dL Procalcitonin ng/mL 07/16/20 07/16/20 07/16/20 Range/Units 20:04 20:04 20:04 WBC (4.8-10.8) X10*3/uL RBC (4.60-5.80) X10*6/uL Hgb (14.0-18.0) g/dl Hct (42-52) % MCV (80-98) fL MCH (27.0-33.0) pg MCHC (31.0-36.0) g/dl RDW (11.0-16.0) % Plt Count (160-400) X10*3/uL MPV (9.4-12.4) fL Immature Gran % (Auto) (0.0-0.4) % Neut % (Auto) (45-73) % Lymph % (Auto) (20-40) % [place] % (Auto) (2-11) % Eos % (Auto) (0-4) % Baso % (Auto) (0-2) % Lymph # (Auto) (1.2-4.9) X10*3/uL [place] # (Auto) (0.1-1.2) X10*3/uL Eos # (Auto) (0.0-0.4) X10*3/uL Baso # (Auto) (0.0-0.2) X10*3/uL Abs Immat Gran (auto) (0.00-0.03) X10*3/uL Absolute Neuts (auto) (2.0-8.3) X10*3/uL Absolute Nucleated RBC (0.0-0.012) X10*3/uL Nucleated RBC % (auto) (0.0-0.2) /100WBC PT (10.8-13.0) SEC INR (0.9-1.1) APTT (24.1-38.0) SEC Sodium (135-145) mmol/L Potassium (3.3-5.1) mmol/l Chloride (96-108) mmol/L Carbon Dioxide (22-29) mmol/L Anion Gap (12-20) BUN (9-16) mg/dL Creatinine (0.5-1.4) mg/dL Estim Creat Clear Calc Estimated GFR Random Glucose (60-115) mg/dL Lactic Acid 1.8 (0.5-2.0) mmol/L Calcium (8.4-10.2) mg/dL Ferritin (20-250) ng/mL Total Bilirubin (0.0-1.0) mg/dL AST (5-37) U/L ALT (0-40) U/L Alkaline Phosphatase (39-117) U/L Lactate Dehydrogenase (118-273) U/L Troponin I High Sens 24.3 (<3.5-35.0) ng/L C-Reactive Protein (< or = 0.50) mg/dL Total Protein (6.5-8.0) g/dL Albumin (3.5-5.0) g/dL Procalcitonin 0.11 ng/mL Imaging Data Chest x-ray: Radiologist's impression: [address] [id number] ReportSigned Patient: Esdras SepulvedaR#: [id number]: 2Acct:[id number]/Sex: 79 / MADM Date: 01/28/21Loc: HO.EDAttending Dr: Ordering Physician: Pravin Agarwal NP Date of Service: 07/16/20 Procedure(s): XR chest 1V Accession Number(s): [id number] cc: Pravin Agarwal TUNGSTEN TENDER~ EXAMINATION: XR CHEST CLINICAL INFORMATION: Weakness COMPARISON: 07/02/2020 TECHNIQUE: Frontal view of the chest was obtained. FINDINGS: Once again patchy areas of opacity are seen in the right greater than left lung. Certainly areas of infiltrate would need to be considered. No obvious failure is present. No effusion. Pacer overlying the right ventricle XR/XR chest 1V IMPRESSION: Once again some patchy areas of opacification right greater than left lung. May represent subtle areas of infiltrate. Dictated By:BENEDICT GEORGE MDSigned By:<Electronically signed by BENEDICT GEORGE MD in OV>07/16/201951 DD/ 24TD/TT: Talent Acquisition Director: GT ECG Data Attestation: I personally reviewed and interpreted this ECG as follows: Interpretation: Ventricular-paced rhythm Rate 60 When compared with ECG of 02-JUL-2020 12:12, Electronic ventricular pacemaker has replaced Atrial fibrillation Discharge Plan Discharge Clinical Impression: Weakness, Dehydration, GOOD (acute kidney injury) Patient Disposition: Admitted As Inpatient Prescriptions: No Action losartan 50 mg Tablet 50 mg PO DAILY RF: 0 carvedilol 3.125 mg Tablet 3.125 mg PO BID RF: 0 omeprazole 20 mg Capsule,Delayed Release(Dr/Ec) 20 mg PO DAILY RF: 0 rosuvastatin 10 mg Tablet 10 mg PO DAILY RF: 0 melatonin 5 mg Tablet 5 mg PO BEDTIME RF: 0 Eliquis 5 mg Tablet 5 mg PO BID RF: 0 torsemide 20 mg Tablet 40 mg PO BID RF: 0 glipizide 5 mg Tablet 5 mg PO DAILY RF: 0 dexamethasone 6 mg tablet 6 mg PO DAILY Qty: 4 RF: 0
--- NOTE | 2020-07-16 19:25 | XR_ITS ---
EXAMINATION: XR CHEST CLINICAL INFORMATION: Weakness COMPARISON: 07/02/2020 TECHNIQUE: Frontal view of the chest was obtained. FINDINGS: Once again patchy areas of opacity are seen in the right greater than left lung. Certainly areas of infiltrate would need to be considered. No obvious failure is present. No effusion. Pacer overlying the right ventricle XR/XR chest 1V IMPRESSION: Once again some patchy areas of opacification right greater than left lung. May represent subtle areas of infiltrate.
--- NOTE | 2020-07-16 19:25 | ECG_ITS ---
Test Reason : WEAKNESS Blood Pressure : / mmHG Vent. Rate : 060 BPM Atrial Rate : 468 BPM P-R Int : 000 ms QRS Dur : 192 ms QT Int : 516 ms P-R-T Axes : 000 -71 076 degrees QTc Int : 516 ms Ventricular-paced rhythm Abnormal ECG When compared with ECG of 02-JUL-2020 12:12, Electronic ventricular pacemaker has replaced Atrial fibrillation Referred By: Pravin Agarwal Electronically Signed By:Daniel Charles
[2020-07-16] MEDS: 0.9 % Sodium Chloride 500 ML IV (20:07)
[2020-07-16 20:15] LABS: MANUAL DIFF FLAG NO
[2020-07-16 20:30] LABS: Lactic Acid 1.8 mmol/L (0.5-2.0)
[2020-07-16 20:31] LABS: INTERNATIONAL NORM RATIO 2.3 (0.9-1.1); Prothrombin Time 27.2 SEC (10.8-13.0)
[2020-07-16 20:34] LABS: Partial Thromboplastin Time 38.5 SEC (24.1-38.0)
[2020-07-16 20:39] LABS: Basophils Percent Auto 0.1 % (0-2); Eosinophils Absolute Auto 0.1 X10*3/uL (0.0-0.4); Eosinophils Percent Auto 0.6 % (0-4); Hemoglobin 12.8 g/dl (14.0-18.0); Imm Gran Abs Auto 0.06 X10*3/uL (0.00-0.03); Imm Gran Pct Auto 0.4 % (0.0-0.4); Lymphocytes Absolute Auto 3.9 X10*3/uL (1.2-4.9); Lymphocytes Percent Auto 24.7 % (20-40); Mean Corpuscular HGB Conc 33.7 g/dl (31.0-36.0); Mean Corpuscular Hemoglobin 30.3 pg (27.0-33.0); Mean Platelet Volume 10.5 fL (9.4-12.4); Monocytes Absolute Auto 0.7 X10*3/uL (0.1-1.2); Monocytes Percent Auto 4.6 % (2-11); Neutrophils Percent Auto 69.6 % (45-73); Platelet Count 194 X10*3/uL (160-400); Red Blood Count 4.22 X10*6/uL (4.60-5.80); White Blood Count 15.8 X10*3/uL (4.8-10.8)
[2020-07-16 20:40] LABS: Troponin-I High Sensitivity 24.3 ng/L (<3.5-35.0)
[2020-07-16 20:46] LABS: Alanine Aminotransferase 30 U/L (0-40); Albumin Level 3.6 g/dL (3.5-5.0); Alkaline Phosphatase 80 U/L (39-117); Anion Gap 19 (12-20); Aspartate Amino Transferase 34 U/L (5-37); Bilirubin Total 1.9 mg/dL (0.0-1.0); Blood Urea Nitrogen 88 mg/dL (9-16); C Reactive Protein 0.26 mg/dL (< or = 0.50); Calcium 8.2 mg/dL (8.4-10.2); Carbon Dioxide 27 mmol/L (22-29); Chloride 94 mmol/L (96-108); Creatinine Clr Calc Pharmacy 24.6; Estimated Glomerular Filt Rate 28; Glucose Random 204 mg/dL (60-115); Lactate Dehydrogenase 348 U/L (118-273); Potassium 4.1 mmol/l (3.3-5.1); Sodium 136 mmol/L (135-145)
[2020-07-16 20:54] LABS: Ferritin 1157 ng/mL (20-250); Procalcitonin 0.11 ng/mL
[2020-07-16] MEDS: Lidocaine HCl 2 % Urojet 10 ML JEL.PF.APP TOPICAL (21:17)
--- NOTE | 2020-07-16 21:19 | CT_ITS ---
EXAMINATION: CT CHEST WITHOUT CONTRAST CLINICAL INFORMATION: Abnormal chest radiograph. Previous Covid positivity documented on 07/02/2020 from the previous chest radiograph. COMPARISON: Chest radiograph performed same day, CT abdomen pelvis 11/19/2013 TECHNIQUE: Multidetector volumetric CT imaging of the chest was done. Axial MIP volume rendering provided. Sagittal and coronal reformatted images were obtained. This CT examination was performed using dose optimization techniques as appropriate, variously including the following: *Automated exposure control *Adjustment of mA and/or kV according to patient size (this includes techniques or standardized protocols for targeted exams where dose is matched to indication/reason for exam; i.e. 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 LUNGS: There are diffuse reticulated lung markings intermixed with groundglass opacities seen bilaterally. Bandlike consolidations along the posterior aspects of the subpleural lower lobes symmetrically. Trachea is midline and central airways are patent. MEDIASTINUM: Cardiomegaly. Small pericardial effusion. Anterior solid mediastinal mass measures 3.6 x 2.7 cm in its oblique transverse by AP dimensions, respectively. Internal attenuation measures 53 Hounsfield units. Streak artifact from a left chest pacemaker limits assessment as to whether this is an extension from the thyroid gland or if this is separate. Pacer lead in the right ventricle. Coronary artery calcifications. No thoracic aortic aneurysm. PLEURA: No pleural effusion. No pneumothorax. AXILLA: No axillary lymphadenopathy. UPPER ABDOMEN: Cholelithiasis without CT evidence of cholecystitis. OSSEOUS STRUCTURES: No acute osseous abnormality. CT/CT chest wo con IMPRESSION: 1. Diffuse bilateral symmetric reticulated lung markings intermixed with groundglass opacities, nonspecific but would be in keeping with a patient recovering from Covid 19. Of note, no such opacities were seen on the prior study from 2013. The bandlike posterior lower lobe opacities are also nonspecific and could be related to dependent changes but have also been seen associated with the Covid 19 pulmonary fibrosis. 2. Anterior mediastinal mass is nonspecific. Differential diagnosis includes substernal thyroid, lymphoma, less likely thymoma or teratoma. Appropriate follow-up is recommended for definitive diagnosis. The report will be called to the ordering clinician by a [facility] Workflow Coordinator.
[2020-07-16 21:38] LABS: Glucose Urine UA NEG (NEG); Leukocyte Esterase Urine NEG (NEG); Nitrite Urine NEG (NEG); Urine Blood 3+ (NEG); Urine Ketones NEG (NEG); Urine Protein NEG (NEG-TRACE)
[2020-07-16 21:55] LABS: Appearance Urine CLEAR; Color Urine YELLOW
[2020-07-16 21:57] LABS: Osmolality Urine 366 mosm/kg (373-1093)
[2020-07-16 22:09] LABS: Osmolality, Serum 313 mosm/kg (281-305)
[2020-07-16 22:11] LABS: Creatinine Urine 78.65 mg/dL; Sodium Urine Random < 20.0 mmol/L
[2020-07-16 22:32] LABS: Squamous Epithelial Cell Urine TRACE /LPF; WBC Urine 0 /HPF (0-4)
[2020-07-16 22:34] LABS: Amorphous Sediment Urine 2+ /LPF
[2020-07-16 23:08] LABS: COVID-19 Test Positive (Negative)
--- NOTE | 2020-07-16 23:24 | PM.IMHP ---
History of Present Illness Date of Service: 07/16/20 Chief Complaint: Generalized weakness 79 y/o male with an extensive PMHX who presented from home due to generalized weakness. Per history provided by the patient, for the past several days has been feeling weak which has been present on and off since patient was recently discharged from the hospital. Patient was recently treated due to acute respiratory failure due to covid 19 infection requiring home oxygen upon discharged. Patient denies any episode of chest pain, SOB, nausea, vomiting, cough or fever. On presentation to the ED BP is found to be 100/55 mmhg, no evidence of fever, WBC of 15.8, INR of 2.3, Creatinine of 2.3 from 1.2. Ferritin of 1157, LDH of 348, Covid + and evidence of hematuria. CT chest showing bilateral ground glass opacities from recuperating covid 19 infection and evidence of a mediastinal mass which could represent thyroid tissue vs lymphoma. Nephrology was contacted per ED who recommended tu do serum osmolarity and urine lytes as well as admit the patient for renal monitoring with hydration. Patient seen and examined at the bedside, laying down in bed in no acute distress. ROS as above otherwise negative. Physical exam unremarkable. PMHX: 1. Atrial fibrillation. 2. CVA. 3. Diabetes mellitus. 4. GERD. 5. Hypertension. 6. Hyperlipidemia. 7. Pacemaker placement. PSX: PPM Toxic habits: Gives no hx of alcohol abuse, smoking or IVDA Review of Systems Constitutional: Constitutional: Reports as per HPI and Reports other (generalized weakness ) [facility] Medical History (Updated 07/16/20 @ 23:43 by Mahsa Tao MD) CVA (cerebral vascular accident) Diabetes mellitus GERD (gastroesophageal reflux disease) H/O: HTN (hypertension) Hyperlipidemia Pacemaker Persistent atrial fibrillation Functional capacity: independent ambulation Family history: reviewed and not pertinent Social History Household Members: Family Housing: House Alcohol intake: never Smoking Status: Former smoker Use of substances other than those prescribed or required for medical reasons: No Advance Directives: No Advance Directives Information Provided: No service: No Current occupational status: retired Meds Allergies Allergy/AdvReac Type Severity Reaction Status Date / Time No Known Allergies Allergy Unknown Unverified 03/05/20 15:58 NSAIDS due to CKD Allergy Unknown Uncoded 06/27/19 00:00 Home Medications Medication Instructions Recorded Confirmed Type Eliquis 5 mg PO BID 07/02/20 07/16/20 History carvedilol 3.125 mg PO BID 07/02/20 07/16/20 History glipizide 5 mg PO DAILY 07/02/20 07/16/20 History losartan 50 mg PO DAILY 07/02/20 07/16/20 History melatonin 5 mg PO BEDTIME 07/02/20 07/16/20 History omeprazole 20 mg PO DAILY PRN 07/02/20 07/16/20 History rosuvastatin 10 mg PO DAILY 07/02/20 07/16/20 History torsemide 40 mg PO BID 07/02/20 07/16/20 History Physical Exam Vital Signs and Narrative: Vital Signs: Last Vital Signs Temp 98.4 F 07/16/20 22:11 Pulse 59 07/16/20 22:11 Resp 17 07/16/20 22:11 BP 110/60 07/16/20 22:11 Pulse Ox 95 07/16/20 22:11 Body Mass Index 26.9 Const: General: cooperative, comfortable and no acute distress Orientation/consciousness: oriented to person, oriented to place and oriented to time HENMT: Head: Yes normal to inspection Eyes: General: appearance normal, both eyes and all related structures Neck: Yes normal visual inspection Chest: Chest palpation & inspection: normal inspection of the chest Resp: Effort & Inspection: normal respiratory effort Auscultation: clear to auscultation bilaterally Cardio: Jugular venous distension: no JVD Rate: regular rate Rhythm: abnormal rhythm Heart sounds: S1 normal heart sound present and S2 normal heart sound present GI: Inspection: Yes normal to inspection Skin: General skin exam: no rashes or lesions noted Neuro: General: oriented to person, oriented to place and oriented to time Cognition (Neuro): normal cognition Results Labs CBC and Chem 7: 07/16/20 20:04 07/16/20 20:04 Labs: Laboratory Results - last 24 hr 07/16/20 07/16/20 07/16/20 20:04 20:04 20:04 MCV 90.0 MCH 30.3 MCHC 33.7 RDW 14.0 Plt Count 194 MPV 10.5 Immature Gran % (Auto) 0.4 Neut % (Auto) 69.6 Lymph % (Auto) 24.7 [place] % (Auto) 4.6 Eos % (Auto) 0.6 Baso % (Auto) 0.1 Lymph # (Auto) 3.9 [place] # (Auto) 0.7 Eos # (Auto) 0.1 Baso # (Auto) 0.0 Abs Immat Gran (auto) 0.06 H Absolute Neuts (auto) 11.0 H Absolute Nucleated RBC 0.000 Nucleated RBC % (auto) 0.0 PT 27.2 H D INR 2.3 H APTT 38.5 H Anion Gap 19 Estim Creat Clear Calc 24.6 Estimated GFR 28 Random Glucose 204 H Osmolality Lactic Acid Calcium 8.2 L D Ferritin 1157 H Total Bilirubin 1.9 H AST 34 ALT 30 Alkaline Phosphatase 80 Lactate Dehydrogenase 348 H Troponin I High Sens C-Reactive Protein 0.26 Total Protein 7.0 Albumin 3.6 Procalcitonin Urine Color Urine Appearance Urine pH Ur Specific [place] Urine Protein Urine Glucose (UA) Urine Ketones Urine Blood Urine Nitrite Ur Leukocyte Esterase Urine RBC Urine WBC Ur Squamous Epith Cells Amorphous Sediment Urine Bacteria Hyaline Casts Granular Casts Urine Osmolality Ur Random Sodium Urine Creatinine COVID-19 (JOÃO) COVIDCEPA Safe Drive 07/16/20 07/16/20 07/16/20 20:04 20:04 20:04 MCV MCH MCHC RDW Plt Count MPV Immature Gran % (Auto) Neut % (Auto) Lymph % (Auto) [place] % (Auto) Eos % (Auto) Baso % (Auto) Lymph # (Auto) [place] # (Auto) Eos # (Auto) Baso # (Auto) Abs Immat Gran (auto) Absolute Neuts (auto) Absolute Nucleated RBC Nucleated RBC % (auto) PT INR APTT Anion Gap Estim Creat Clear Calc Estimated GFR Random Glucose Osmolality Lactic Acid 1.8 Calcium Ferritin Total Bilirubin AST ALT Alkaline Phosphatase Lactate Dehydrogenase Troponin I High Sens 24.3 C-Reactive Protein Total Protein Albumin Procalcitonin 0.11 Urine Color Urine Appearance Urine pH Ur Specific [place] Urine Protein Urine Glucose (UA) Urine Ketones Urine Blood Urine Nitrite Ur Leukocyte Esterase Urine RBC Urine WBC Ur Squamous Epith Cells Amorphous Sediment Urine Bacteria Hyaline Casts Granular Casts Urine Osmolality Ur Random Sodium Urine Creatinine COVID-19 (JOÃO) COVID-19 [employer] 07/16/20 07/16/20 07/16/20 20:04 21:23 21:23 MCV MCH MCHC RDW Plt Count MPV Immature Gran % (Auto) Neut % (Auto) Lymph % (Auto) [place] % (Auto) Eos % (Auto) Baso % (Auto) Lymph # (Auto) [place] # (Auto) Eos # (Auto) Baso # (Auto) Abs Immat Gran (auto) Absolute Neuts (auto) Absolute Nucleated RBC Nucleated RBC % (auto) PT INR APTT Anion Gap Estim Creat Clear Calc Estimated GFR Random Glucose Osmolality 313 H Lactic Acid Calcium Ferritin Total Bilirubin AST ALT Alkaline Phosphatase Lactate Dehydrogenase Troponin I High Sens C-Reactive Protein Total Protein Albumin Procalcitonin Urine Color YELLOW Urine Appearance CLEAR Urine pH 5.0 Ur Specific [place] 1.020 Urine Protein NEG Urine Glucose (UA) NEG Urine Ketones NEG Urine Blood 3+ H Urine Nitrite NEG Ur Leukocyte Esterase NEG Urine RBC 1-4 Urine WBC 0 Ur Squamous Epith Cells TRACE Amorphous Sediment 2+ Urine Bacteria NONE Hyaline Casts 1-4 Granular Casts 1-4 Urine Osmolality Ur Random Sodium < 20.0 Urine Creatinine 78.65 COVID-19 (JOÃO) COVID-19 Clin Com 07/16/20 07/16/20 21:23 22:53 MCV MCH MCHC RDW Plt Count MPV Immature Gran % (Auto) Neut % (Auto) Lymph % (Auto) [place] % (Auto) Eos % (Auto) Baso % (Auto) Lymph # (Auto) [place] # (Auto) Eos # (Auto) Baso # (Auto) Abs Immat Gran (auto) Absolute Neuts (auto) Absolute Nucleated RBC Nucleated RBC % (auto) PT INR APTT Anion Gap Estim Creat Clear Calc Estimated GFR Random Glucose Osmolality Lactic Acid Calcium Ferritin Total Bilirubin AST ALT Alkaline Phosphatase Lactate Dehydrogenase Troponin I High Sens C-Reactive Protein Total Protein Albumin Procalcitonin Urine Color Urine Appearance Urine pH Ur Specific [place] Urine Protein Urine Glucose (UA) Urine Ketones Urine Blood Urine Nitrite Ur Leukocyte Esterase Urine RBC Urine WBC Ur Squamous Epith Cells Amorphous Sediment Urine Bacteria Hyaline Casts Granular Casts Urine Osmolality 366 L Ur Random Sodium Urine Creatinine COVID-19 (JOÃO) Positive A COVID-19 Clin Com See Note Imaging Radiologist's Impressions: Impressions Chest X-Ray 07/16/20 19:25 IMPRESSION: Once again some patchy areas of opacification right greater than left lung. May represent subtle areas of infiltrate. Chest CT 07/16/20 21:19 IMPRESSION: 1. Diffuse bilateral symmetric reticulated lung markings intermixed with groundglass opacities, nonspecific but would be in keeping with a patient recovering from Covid 19. Of note, no such opacities were seen on the prior study from 2013. The bandlike posterior lower lobe opacities are also nonspecific and could be related to dependent changes but have also been seen associated with the Covid 19 pulmonary fibrosis. 2. Anterior mediastinal mass is nonspecific. Differential diagnosis includes substernal thyroid, lymphoma, less likely thymoma or teratoma. Appropriate follow-up is recommended for definitive diagnosis. The report will be called to the ordering clinician by a [facility] Workflow Coordinator. Assessment and Plan (1) GOOD (acute kidney injury): Status: Acute Observation Continue with gentle IV hydration. GOOD likely secondary to dehydration Follow up Urine lytes and serum lytes Monitor renal function closely Follow up US renal/bladder Nephrology consulted per ED (2) Dehydration: Status: Acute plan as above (3) Weakness: Status: Acute likely a remnant of resolving covid 19 pneumonia closely monitor after IV hydration (4) Persistent atrial fibrillation: Status: Acute continue with eliquis home dose (5) GERD (gastroesophageal reflux disease): Status: Inactive continue with PPI home dose (6) H/O: HTN (hypertension): Status: Acute continue with carvedilol and losartan home dose (7) Diabetes mellitus: Status: Acute Insulin regimen as ordered (8) Mediastinal mass: Status: Acute Oncology recommendation for further recs
[2020-07-16] MEDS: 0.9 % Sodium Chloride 1,000 ML 75 ML IVCONT (23:30)
[2020-07-17] VITALS (10 sets, daily range): BP systolic 101–119; BP diastolic 49–60; PULSE 60–62; RESP 13–18; TEMP 36.3–36.5; O2SAT 95–98
--- NOTE | 2020-07-17 | US_ITS ---
EXAMINATION: US RETROPERITONEAL COMPLETE (RENAL) CLINICAL INFORMATION: Hematuria. Covid Positive. COMPARISON: None TECHNIQUE: Real-time imaging of the kidneys and bladder. FINDINGS: RIGHT KIDNEY: 8.8 x 5.2 x 4.9 cm (SAG x AP x TRV). The kidney is normal in size, contour, and echogenicity. Renal cortical thickness is normal. No calculi or focal parenchymal lesions. No hydronephrosis. LEFT KIDNEY: 10.4 x 4.4 x 5.4 cm (SAG x AP x TRV). The kidney is normal in size, contour, and echogenicity. Renal cortical thickness is normal. No calculi or focal parenchymal lesions. No hydronephrosis. BLADDER: Partially distended with Burrell's catheter Bilateral ureteral jets are not demonstrated. Prevoid bladder volume is 135 mL. Postvoid bladder volume is 63.3 mL. There is Burrell's catheter in place. Jets are not visualized. US/US retroperitoneal comp IMPRESSION: Small right kidney compared to left. No echogenic calculi or hydronephrosis. Partially distended urinary bladder with no bilateral ureteral jets seen. There is a Burrell's catheter in place visualized.
[2020-07-17 00:57] LABS: Glucose, Whole Blood 211 mg/dL (60-115)
[2020-07-17] MEDS: Insulin Lispro 100 UNIT/ML 3 ML VIAL SUBCUT ×4 (03:00→22:11)
[2020-07-17] MEDS: 0.9 % Sodium Chloride Flush 3 ML SYRINGE IVFLUSH ×4 (03:12→22:10)
[2020-07-17 06:51] LABS: MANUAL DIFF FLAG NO
[2020-07-17 06:57] LABS: Basophils Percent Auto 0.1 % (0-2); Eosinophils Absolute Auto 0.2 X10*3/uL (0.0-0.4); Eosinophils Percent Auto 0.9 % (0-4); Hematocrit 38.5 % (42-52); Imm Gran Abs Auto 0.08 X10*3/uL (0.00-0.03); Imm Gran Pct Auto 0.4 % (0.0-0.4); Lymphocytes Absolute Auto 3.8 X10*3/uL (1.2-4.9); Lymphocytes Percent Auto 21.4 % (20-40); Mean Corpuscular HGB Conc 33.8 g/dl (31.0-36.0); Mean Corpuscular Hemoglobin 30.3 pg (27.0-33.0); Mean Corpuscular Volume 89.7 fL (80-98); Mean Platelet Volume 10.1 fL (9.4-12.4); Monocytes Absolute Auto 1.2 X10*3/uL (0.1-1.2); Monocytes Percent Auto 6.6 % (2-11); Neutrophils Absolute Auto 12.6 X10*3/uL (2.0-8.3); Neutrophils Percent Auto 70.6 % (45-73); Platelet Count 161 X10*3/uL (160-400); Red Blood Count 4.29 X10*6/uL (4.60-5.80); Red Cell Distribution Width 13.7 % (11.0-16.0); White Blood Count 17.9 X10*3/uL (4.8-10.8)
[2020-07-17 07:55] LABS: Anion Gap 16 (12-20); Blood Urea Nitrogen 81 mg/dL (9-16); Calcium 8.4 mg/dL (8.4-10.2); Carbon Dioxide 28 mmol/L (22-29); Chloride 100 mmol/L (96-108); Creatinine Clr Calc Pharmacy 28.1; Estimated Glomerular Filt Rate 32; Glucose Random 80 mg/dL (60-115); Potassium 3.2 mmol/l (3.3-5.1); Sodium 141 mmol/L (135-145)
[2020-07-17] MEDS: Apixaban 5 MG TABLET PO ×2 (09:00→22:10)
[2020-07-17] MEDS: Potassium Chloride Packet 20 MEQ PACKET PO (09:00)
[2020-07-17] MEDS: carvediloL 3.125 MG TABLET PO ×2 (09:00→22:10)
[2020-07-17 09:47] LABS: Magnesium 2.6 mg/dL (1.6-2.6)
[2020-07-17 09:48] LABS: Glucose, Whole Blood 111 mg/dL (60-115)
--- NOTE | 2020-07-17 11:45 | P.CONNP_ITS ---
History of Present Illness Reason for Consult Consult date: 07/17/20 Reason for consult: GOOD Chief Complaint Chief complaint: GOOD History of Present Illness Narrative: 79 y/o hM readm with gen weaknes, SOB recently dx'd COVID and now we are asked to see for new GOOD with SCr 2.3 whereas SCr 1.2 at time of d/c last h osp BUT looks like bsl SCr 1.5. Clinically appears dehydrated and incr Bun/ Cr ratio and normnally takes cozaar and trosemide.. Info obtained from EHR as pateint poor historian. C/O gen weak and SOB. Dneis any voiding probs. PMHX: 1. Atrial fibrillation. 2. CVA. 3. Diabetes mellitus. 4. GERD. 5. Hypertension. 6. Hyperlipidemia. 7. Pacemaker placement. 8. CKD 3: bsl SCr 1.5 PSX: PPM Review of Systems Review of Systems Constitutional: No Weight loss, No Fever, No Chills, No Night Sweats, No Fatigue, No Malaise ENT/Mouth: No Hearing loss, No Ear Pain, No Nasal Congestion, No Sinus Pain, No Hoarseness, No sore throat, No Rhinorrhea, No Swallowing Difficulty Eyes: No Eye Pain, No Swelling, No Redness, No Foreign Body, No Discharge, No Vision Changes Cardiovascular: No Chest Pain, No SOB, No Dyspnea on Exertion, No Orthopnea, No Edema, No Palpitations Respiratory: No Cough, No Sputum, No Wheezing, No Smoke Exposure, No Dyspnea . Gastrointestinal: No Nausea, No Vomiting, No Diarrhea, No Constipation, No abdo jenniffer Pain, No Hematochezia, No Melena Genitourinary: No Dysuria, No Urinary Frequency, No Hematuria, No Urinary Incontinence, No Urgency, No Flank Pain, No Urinary Flow Changes, No Hesitancy Musculoskeletal: No joint pain, No Myalgias, No Joint Swelling Skin: No Skin Lesions, No rash Neuro: + Weakness, No Numbness, No Paresthesias, No Loss of Consciousness, No Dizziness, No Headache Psych: No Social Issues Heme/Lymph: No Bruising, No Bleeding,No Lymphadenopathy Endocrine: No Polyuria, No Polydipsia, No Temperature Intolerance Yes all other systems are reviewed and are negative Constitutional: Reports as per HPI and Reports other (generalized weakness ) [facility] Past Medical History Medical History (Updated 07/16/20 @ 23:43 by Mahsa Tao MD) CVA (cerebral vascular accident) Diabetes mellitus GERD (gastroesophageal reflux disease) H/O: HTN (hypertension) Hyperlipidemia Pacemaker Persistent atrial fibrillation Functional capacity: independent ambulation Family History Family history: reviewed and not pertinent Social History Social History Household Members: Family Housing: House Alcohol intake: never Smoking Status: Former smoker Use of substances other than those prescribed or required for medical reasons: No Advance Directives: No Advance Directives Information Provided: No service: No Current occupational status: retired Meds Allergies Allergy/AdvReac Type Severity Reaction Status Date / Time No Known Allergies Allergy Unknown Unverified 03/05/20 15:58 NSAIDS due to CKD Allergy Unknown Uncoded 06/27/19 00:00 Home Medications Medication Instructions Recorded Confirmed Type Eliquis 5 mg PO BID 07/02/20 07/16/20 History carvedilol 3.125 mg PO BID 07/02/20 07/16/20 History glipizide 5 mg PO DAILY 07/02/20 07/16/20 History losartan 50 mg PO DAILY 07/02/20 07/16/20 History melatonin 5 mg PO BEDTIME 07/02/20 07/16/20 History omeprazole 20 mg PO DAILY PRN 07/02/20 07/16/20 History rosuvastatin 10 mg PO DAILY 07/02/20 07/16/20 History torsemide 40 mg PO BID 07/02/20 07/16/20 History Physical Exam Vital Signs: Last Vital Signs Temp 98.4 F 07/16/20 22:11 Pulse 62 07/17/20 09:00 Resp 16 07/17/20 11:04 BP 119/60 07/17/20 11:04 Pulse Ox 97 07/17/20 04:00 Body Mass Index 26.9 Const Other: Frail, elderly General: cooperative, comfortable and no acute distress; No acute distress or intoxicated appearing Nutritional Appearance: average body habitus Orientation/consciousness: oriented to person, oriented to place, oriented to time and patient oriented x3 HENMT Head: Yes normal to inspection Ears: hearing grossly normal bilaterally Eyes General: appearance normal, both eyes and all related structures Visual Don: normal visual don by confrontation Neck Neck: Yes normal visual inspection, No positive Brudzinski's sign, No positive Kernig's sign and No tender Thyroid: Thyroid normal Chest Chest palpation & inspection: normal inspection of the chest Resp Effort & Inspection: normal respiratory effort Auscultation: clear to auscultation bilaterally Cardio Other: Frail, elderly Jugular venous distension: no JVD Rate: regular rate Rhythm: abnormal rhythm Heart sounds: S1 normal heart sound present and S2 normal heart sound present GI Inspection: Yes normal to inspection Percussion: Yes normal to percussion Auscultation: normal bowel sounds General: Yes no CVA tenderness Back/Spine/Pelvis Back: no CVA tenderness Skin General skin exam: no rashes or lesions noted Neuro General: oriented to person, oriented to place, oriented to time and patient oriented x3 Cognition (Neuro): normal cognition Extrem General: Yes normal to inspection Results Lab Results Result Diagrams: 07/17/20 06:43 07/17/20 06:43 Lab results: Chemistry 07/16/20 07/17/20 20:04 06:43 Sodium 136 141 Potassium 4.1 3.2 L D Carbon Dioxide 27 28 BUN 88 H* D 81 H* Creatinine 2.31 H 2.02 H Calcium 8.2 L D 8.4 Hematology 07/16/20 07/17/20 20:04 06:43 WBC 15.8 H 17.9 H Hgb 12.8 L D 13.0 L Plt Count 194 161 Urinalysis 07/16/20 21:23 Urine Color YELLOW Urine Appearance CLEAR Urine pH 5.0 Ur Specific [place] 1.020 Urine Protein NEG Urine Glucose (UA) NEG Urine Ketones NEG Urine Blood 3+ H Urine Nitrite NEG Ur Leukocyte Esterase NEG Urine RBC 1-4 Urine WBC 0 Ur Squamous Epith Cells TRACE Hyaline Casts 1-4 Urine Studies 07/16/20 07/16/20 21:23 21:23 Urine Osmolality 366 L Urine Creatinine 78.65 Assessment and Plan (1) GOOD (acute kidney injury): Status: Acute 1. GOOD: clinically most c/w reanl hypoperfsuin with high Bun/Cr ratio and on diuretic and ARB..the latter can interfere with reanl perfusion other poss include: OBs uropathy despite hernnádez in place; AIN and AGN as well multifact ATN all in the differential 2. CKD 3: bsl SCr 1.5 ( the 1.2 on d/c was not his usual) 3. Resp Failure: Crsult of recent COVID 4. GHematuria: ques d/t hernández vs other REC: cont IVF, spot urine studies to calc FENA; if renal func worsens the fiull joshua looking for possible AGN; avoid Ntoxins; hold diuretic and cozaar will follow clsoely with team (2) Dehydration: Status: Acute plan as above (3) Weakness: Status: Acute likely a remnant of resolving covid 19 pneumonia closely monitor after IV hydration (4) Persistent atrial fibrillation: Status: Acute (5) GERD (gastroesophageal reflux disease): Status: Inactive continue with PPI home dose (6) H/O: HTN (hypertension): Status: Acute (7) Diabetes mellitus: Status: Acute (8) Mediastinal mass: Status: Acute
--- NOTE | 2020-07-17 12:06 | MHC.CM.PN ---
Attempted to meet with patient in regards to discharge planning. Patient currently sleeping. SPoke with patient's daughter/HCP, [place] via telephone at [phone]. 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 PCP verified. HCP verified to be on file. Obs notice explained and left at patient's bedside. Physical therapy eval for home safety will be needed when medically stable. [place] will transport patient home. Continue to monitor for d/c needs.
[2020-07-17] MEDS: 0.9 % Sodium Chloride 1,000 ML 75 ML IVCONT ×2 (12:33→22:10)
[2020-07-17 14:08] LABS: Glucose, Whole Blood 213 mg/dL (60-115)
[2020-07-17 16:42] LABS: Creatinine Urine 67.33 mg/dL; Sodium Urine Random < 20.0 mmol/L; Total Protein Urine Random 22 mg/dL (<12)
--- NOTE | 2020-07-17 17:26 | P.PNIM_ITS ---
Subjective Subjective Date of Service: 07/17/20 Interval History: good, poor oral intake Review of Systems Denies any chest pain or abdominal pain or fever or chills or nausea or vomitin Or any urine complaints. Physical Exam Vital Signs: Vital Signs: Last Vital Signs Temp 98.4 F 07/16/20 22:11 Pulse 60 07/17/20 16:05 Resp 15 07/17/20 16:05 BP 109/54 L 07/17/20 16:05 Pulse Ox 97 07/17/20 16:05 Body Mass Index 26.9 Physical exam: Constitutional: Not in acute distress Neck: Supple Cvs: rrr, [id number] , no murmur res: clear to auscultation ,no rhonchii or wheezing abd: no rebound or guarding ,nt, bs present. ext pulses present , no cyanosis neuro: axo3 , nonfocal. Objective Data Current Medications Generic Name Dose Route Start Last Admin Trade Name Freq PRN Reason Stop Dose Admin Albuterol Sulfate 2 puff 07/17/20 08:49 Albuterol Sulfate 90 Mcg 8 Gm Inhaler INHALE RQ4H PRN ATELACTASIS Apixaban 5 mg 07/17/20 09:00 07/17/20 09:00 Apixaban 5 Mg Tablet PO 5 mg BID LEYLA Administration Carvedilol 3.125 mg 07/17/20 09:00 07/17/20 09:00 Carvedilol 3.125 Mg Tablet PO 3.125 mg BID [facility] Administration Protocol Sodium Chloride 1,000 mls @ 75 mls/hr 07/16/20 23:30 07/17/20 12:33 Ns IVCONT 75 mls/hr .[id number] LEYLA Administration Insulin Human Lispro 0 unit 07/17/20 07:30 07/17/20 14:17 Insulin Lispro 100 Unit/Ml 3 Ml Vial SUBCUT 07/17/20 23:24 4 unit QIDACHS [facility] Administration Protocol Omeprazole 20 mg 07/16/20 23:21 Omeprazole 20 Mg Capsule.Dr PO DAILY PRN indegestion Sodium Chloride 3 ml 07/17/20 00:00 07/17/20 16:40 0.9 % Sodium Chloride Flush 3 Ml Syringe IVFLUSH 3 ml QSHIFT [facility] Administration Labs CBC & Chem 7: 07/18/20 06:41 07/19/20 06:31 Assessment and Plan (1) GOOD (acute kidney injury): Status: Acute (2) Dehydration: Status: Acute (3) Pneumonia due to 2019 novel coronavirus: Status: Acute (4) Hypoxia: Status: Acute (5) Weakness: Status: Acute (6) Persistent atrial fibrillation: Status: Acute Assessment and Plan: 79-year-old man who is being admitted with GOOD: GOOD: Seems to be multifactorial probably poor oral intake, htn meds :losartan , torcemide. Continue with gentle IV hydration. GOOD likely secondary to dehydration hypokalemia : repleted po potassium Follow up Urine lytes and serum lytes Monitor renal function closely Follow up US renal/bladder nephro eval Atrial fibrillation. Continue Eliquis and beta-ulises. Diabetes mellitus: fs with sliding scale coverage ADA diet. hold glipizide HTn: Continue Coreg. . (7) GOOD (acute kidney injury): Status: Acute (8) Mediastinal mass: Status: Acute
[2020-07-17 18:32] LABS: Glucose, Whole Blood 193 mg/dL (60-115)
[2020-07-17 20:35] LABS: Glucose, Whole Blood 187 mg/dL (60-115)
[2020-07-17 21:04] LABS: Glucose, Whole Blood 242 mg/dL (60-115)
[2020-07-18] VITALS (10 sets, daily range): BP systolic 106–113; BP diastolic 53–56; PULSE 59–63; RESP 16–18; TEMP 36–36.9; O2SAT 95–98
[2020-07-18 07:34] LABS: Glucose, Whole Blood 125 mg/dL (60-115)
[2020-07-18 07:35] LABS: Hemoglobin 12.3 g/dl (14.0-18.0); Mean Corpuscular HGB Conc 32.4 g/dl (31.0-36.0); Mean Corpuscular Hemoglobin 30.7 pg (27.0-33.0); Mean Corpuscular Volume 94.8 fL (80-98); Red Blood Count 4.01 X10*6/uL (4.60-5.80)
[2020-07-18 07:56] LABS: Anion Gap 14 (12-20); Blood Urea Nitrogen 53 mg/dL (9-16); Calcium 7.7 mg/dL (8.4-10.2); Carbon Dioxide 25 mmol/L (22-29); Chloride 105 mmol/L (96-108); Creatinine Clr Calc Pharmacy 39.8; Estimated Glomerular Filt Rate 48; Glucose Random 124 mg/dL (60-115); Potassium 4.2 mmol/L (3.3-5.1); Sodium 140 mmol/L (135-145)
[2020-07-18] MEDS: Apixaban 5 MG TABLET PO ×2 (09:10→20:14)
[2020-07-18] MEDS: carvediloL 3.125 MG TABLET PO ×2 (09:10→20:14)
--- NOTE | 2020-07-18 09:34 | PM.PNNEP ---
Subjective Subjective Date of Service: 07/18/20 Interval history: seen and examined no complaints Physical Exam Vital Signs: Vital Signs: Last Vital Signs Temp 96.8 F 07/18/20 08:00 Pulse 60 07/18/20 09:10 Resp 18 07/18/20 08:00 BP 107/55 L 07/18/20 09:10 Pulse Ox 97 07/18/20 08:00 Body Mass Index 26.9 Const: General: comfortable HENMT: Head: Yes normocephalic and Yes atraumatic Neck: Neck: Yes supple Resp: Auscultation: diminished lung sounds Cardio: Heart sounds: S1 normal heart sound present and S2 normal heart sound present GI: Palpation (GI): Soft to palpation and nontender Extrem: General: Yes no pedal edema Objective Data Labs CBC & Chem 7: 07/18/20 06:41 07/18/20 06:41 Labs: Laboratory Results - last 24 hr 07/17/20 07/17/20 07/17/20 06:43 09:44 14:03 WBC RBC Hgb Hct MCV MCH MCHC RDW Plt Count MPV Absolute Nucleated RBC Nucleated RBC % (auto) Sodium Potassium Chloride Carbon Dioxide Anion Gap BUN Creatinine Estim Creat Clear Calc Estimated GFR POC Glucose 111 213 H Random Glucose Calcium Magnesium 2.6 U Random Total Protein Ur Random Sodium Urine Creatinine 07/17/20 07/17/20 07/17/20 16:06 16:45 18:28 WBC RBC Hgb Hct MCV MCH MCHC RDW Plt Count MPV Absolute Nucleated RBC Nucleated RBC % (auto) Sodium Potassium Chloride Carbon Dioxide Anion Gap BUN Creatinine Estim Creat Clear Calc Estimated GFR POC Glucose 242 H 193 H Random Glucose Calcium Magnesium U Random Total Protein 22 H Ur Random Sodium < 20.0 Urine Creatinine 67.33 07/17/20 07/18/20 07/18/20 20:30 06:41 06:41 WBC 10.0 RBC 4.01 L Hgb 12.3 L Hct 38.0 L MCV 94.8 D MCH 30.7 MCHC 32.4 RDW 14.0 Plt Count TNP MPV TNP Absolute Nucleated RBC 0.000 Nucleated RBC % (auto) 0.0 Sodium 140 Potassium 4.2 Chloride 105 Carbon Dioxide 25 Anion Gap 14 BUN 53 H Creatinine 1.43 H Estim Creat Clear Calc 39.8 Estimated GFR 48 POC Glucose 187 H Random Glucose 124 H D Calcium 7.7 L D Magnesium U Random Total Protein Ur Random Sodium Urine Creatinine 07/18/20 07:30 WBC RBC Hgb Hct MCV MCH MCHC RDW Plt Count MPV Absolute Nucleated RBC Nucleated RBC % (auto) Sodium Potassium Chloride Carbon Dioxide Anion Gap BUN Creatinine Estim Creat Clear Calc Estimated GFR POC Glucose 125 H Random Glucose Calcium Magnesium U Random Total Protein Ur Random Sodium Urine Creatinine Microbiology Microbiology Results: Microbiology 07/16/20 20:46 Blood - Venous Blood Culture - Preliminary No growth after 24 hours. 07/16/20 20:04 Blood - Venous Blood Culture - Preliminary No growth after 24 hours. Assessment & Plan Assessment and plan (1) GOOD (acute kidney injury): Status: Acute (2) COVID-19: Status: Acute Assessment and Plan: Scr better GOOD due to pre renal state urine sodium < 20 no proteinuria kidney US showed small right kidney no obstruction baseline serum creatinine `1.2 mg/dl REC IVF follow kidney function and electrolytes Time Spent With Patient Time: Total time spent is greater than 50% in coordination of care (as documented) at patient's floor/unit and/or counseling patient:
[2020-07-18 11:42] LABS: Glucose, Whole Blood 167 mg/dL (60-115)
[2020-07-18 12:33] LABS: Estimated Average Glucose 183 mg/dL
[2020-07-18 12:35] LABS: Alanine Aminotransferase 21 U/L (0-40); Albumin Level 2.9 g/dL (3.5-5.0); Alkaline Phosphatase 68 U/L (39-117); Aspartate Amino Transferase 29 U/L (5-37); Bilirubin Direct 0.4 mg/dL (0.0-0.5); Total Protein 5.6 g/dL (6.5-8.0)
[2020-07-18 12:44] LABS: SARS COV2 IgG Positive (Negative)
[2020-07-18] MEDS: 0.9 % Sodium Chloride Flush 3 ML SYRINGE IVFLUSH (15:41)
[2020-07-18 16:54] LABS: Glucose, Whole Blood 197 mg/dL (60-115)
--- NOTE | 2020-07-18 20:32 | P.CNID_ITS ---
History of Present Illness Data of Consult Service Date: 07/21/20 Requesting physician: Lawrence Carlisle Primary Care Provider: MD BETTY Malik Reason for consult: weakness ,prior COVID He had COVID 06/18 symptoms started with shortness of breath and fatigue He was hospitalized 07/03-07/07 due to hypoxia He left on home oxygen and hasnt been on oxygen for last 5 days He feels more weakened and fatigued now. He has no purulent sputum,fever or chills No one else is ill He has no diarrhea or rash Review of Systems Review of Systems: Yes all other systems are reviewed and are negative [facility] Past Medical History Medical History CVA (cerebral vascular accident) Diabetes mellitus GERD (gastroesophageal reflux disease) H/O: HTN (hypertension) Hyperlipidemia Pacemaker Persistent atrial fibrillation Functional capacity: independent ambulation Family History Family history: reviewed and not pertinent Social History Social History Household Members: Family Housing: House Alcohol intake: never Smoking Status: Unknown if ever smoked service: No Current occupational status: retired [employer] Allergies Allergy/AdvReac Type Severity Reaction Status Date / Time No Known Allergies Allergy Unknown Unverified 03/05/20 15:58 NSAIDS due to CKD Allergy Unknown Uncoded 06/27/19 00:00 Home Medications Medication Instructions Recorded Confirmed Type Eliquis 5 mg PO BID 07/02/20 07/16/20 History carvedilol 3.125 mg PO BID 07/02/20 07/16/20 History glipizide 5 mg PO DAILY 07/02/20 07/16/20 History losartan 50 mg PO DAILY 07/02/20 07/16/20 History melatonin 5 mg PO BEDTIME 07/02/20 07/16/20 History omeprazole 20 mg PO DAILY PRN 07/02/20 07/16/20 History rosuvastatin 10 mg PO DAILY 07/02/20 07/16/20 History torsemide 40 mg PO BID 07/02/20 07/16/20 History Physical Exam Vital Signs: Vital Signs: Last Vital Signs Temp 98.1 F 07/18/20 16:29 Pulse 60 07/18/20 20:14 Resp 16 07/18/20 16:29 BP 111/55 L 07/18/20 20:14 Pulse Ox 97 07/18/20 16:29 Body Mass Index 26.9 Const: General: cooperative HENMT: Head: Yes normal to inspection Mouth: Normal oral and palatal mucosa present Eyes: General: appearance normal, both eyes and all related structures Resp: Effort & Inspection: normal respiratory effort Cardio: Rate: regular rate Rhythm: regular rhythm GI: Palpation (GI): Soft to palpation and nontender Skin: General skin exam: no rashes or lesions noted Neuro: General: moves all extremities Assessment and Plan (1) COVID-19: Status: Acute Would not give antibiotics Supportive care per Renal (2) GOOD (acute kidney injury): Status: Acute (3) Mediastinal mass: Status: Acute Results Labs CBC & Chem 7: 07/18/20 06:41 07/19/20 06:31 Labs: Short CBC 07/18/20 Range/Units 06:41 WBC 10.0 (4.8-10.8) X10*3/uL Hgb 12.3 L (14.0-18.0) g/dl Hct 38.0 L (42-52) % Plt Count TNP BMP 07/18/20 06:41 Sodium 140 Potassium 4.2 Chloride 105 Carbon Dioxide 25 BUN 53 H Creatinine 1.43 H Calcium 7.7 L D Liver Function 07/18/20 Range/Units 06:41 Total Bilirubin 1.0 (0.0-1.0) mg/dL Direct Bilirubin 0.4 (0.0-0.5) mg/dL AST 29 (5-37) U/L ALT 21 (0-40) U/L Alkaline Phosphatase 68 (39-117) U/L Albumin 2.9 L (3.5-5.0) g/dL Microbiology Microbiology Results: Microbiology 07/16/20 20:46 Blood - Venous Blood Culture - Preliminary No growth after 24 hours. 07/16/20 20:04 Blood - Venous Blood Culture - Preliminary No growth after 24 hours.
[2020-07-18] MEDS: Insulin Lispro 100 UNIT/ML 3 ML VIAL SUBCUT (20:36)
[2020-07-18 20:39] LABS: Glucose, Whole Blood 253 mg/dL (60-115)
[2020-07-19 03:26] VITALS: BP 114/57; PULSE 60; RESP 18; TEMP 36.1; O2SAT 97
[2020-07-19 07:23] LABS: Anion Gap 14 (12-20); Blood Urea Nitrogen 37 mg/dL (9-16); Calcium 7.9 mg/dL (8.4-10.2); Carbon Dioxide 24 mmol/L (22-29); Chloride 105 mmol/L (96-108); Estimated Glomerular Filt Rate 58; Glucose Random 102 mg/dL (60-115); Potassium 3.5 mmol/L (3.3-5.1); Sodium 139 mmol/L (135-145)
[2020-07-19 07:33] LABS: Glucose, Whole Blood 101 mg/dL (60-115)
[2020-07-19 07:43] VITALS: BP 120/58; PULSE 60; RESP 18; TEMP 36.7; O2SAT 96
[2020-07-19 08:04] VITALS: BP 120/58; PULSE 60
[2020-07-19] MEDS: carvediloL 3.125 MG TABLET PO (08:04)
[2020-07-19] MEDS: 0.9 % Sodium Chloride Flush 3 ML SYRINGE IVFLUSH ×3 (08:04→16:09)
[2020-07-19] MEDS: Apixaban 5 MG TABLET PO (08:04)
--- NOTE | 2020-07-19 08:38 | PM.PNNEP ---
Subjective Subjective Date of Service: 07/19/20 Interval history: seen and examined no complaints Physical Exam Vital Signs: Vital Signs: Last Vital Signs Temp 98.0 F 07/19/20 07:43 Pulse 60 07/19/20 08:04 Resp 18 07/19/20 07:43 BP 120/58 L 07/19/20 08:04 Pulse Ox 96 07/19/20 07:43 Body Mass Index 26.9 Const: General: comfortable HENMT: Head: Yes normocephalic and Yes atraumatic Neck: Neck: Yes supple Resp: Auscultation: diminished lung sounds Cardio: Heart sounds: S1 normal heart sound present and S2 normal heart sound present GI: Palpation (GI): Soft to palpation and nontender Extrem: General: Yes no pedal edema Objective Data Labs CBC & Chem 7: 07/18/20 06:41 07/19/20 06:31 Labs: Laboratory Results - last 24 hr 07/17/20 07/18/20 07/18/20 06:41 06:41 11:30 Sodium Potassium Chloride Carbon Dioxide Anion Gap BUN Creatinine Estim Creat Clear Calc Estimated GFR POC Glucose 167 H Random Glucose Estimat Average Glucose 183 Hemoglobin A1c % 8.0 Calcium Total Bilirubin 1.0 Direct Bilirubin 0.4 AST 29 ALT 21 Alkaline Phosphatase 68 Total Protein 5.6 L Albumin 2.9 L SARS-CoV-2 IgG Ab 07/18/20 07/18/20 07/18/20 11:32 16:49 20:24 Sodium Potassium Chloride Carbon Dioxide Anion Gap BUN Creatinine Estim Creat Clear Calc Estimated GFR POC Glucose 197 H 253 H Random Glucose Estimat Average Glucose Hemoglobin A1c % Calcium Total Bilirubin Direct Bilirubin AST ALT Alkaline Phosphatase Total Protein Albumin SARS-CoV-2 IgG Ab Positive 07/19/20 07/19/20 06:31 07:27 Sodium 139 Potassium 3.5 Chloride 105 Carbon Dioxide 24 Anion Gap 14 BUN 37 H Creatinine 1.21 Estim Creat Clear Calc 47.0 Estimated GFR 58 POC Glucose 101 Random Glucose 102 Estimat Average Glucose Hemoglobin A1c % Calcium 7.9 L Total Bilirubin Direct Bilirubin AST ALT Alkaline Phosphatase Total Protein Albumin SARS-CoV-2 IgG Ab Microbiology Microbiology Results: Microbiology 07/16/20 20:46 Blood - Venous Blood Culture - Preliminary No growth after 48 hours. 07/16/20 20:04 Blood - Venous Blood Culture - Preliminary No growth after 48 hours. Assessment & Plan Assessment and plan (1) GOOD (acute kidney injury): Status: Acute (2) COVID-19: Status: Acute Assessment and Plan: kidney function normalizing GOOD due to pre renal state urine sodium < 20 no proteinuria kidney US showed small right kidney no obstruction baseline serum creatinine `1.2 mg/dl REC discontinue IVF follow kidney function and electrolytes Time Spent With Patient Time: Total time spent is greater than 50% in coordination of care (as documented) at patient's floor/unit and/or counseling patient:
[2020-07-19 11:14] VITALS: PULSE 75; O2SAT 95
--- NOTE | 2020-07-19 11:16 | PC.NURSE ---
CARLY Sood/C PER . WILL CONTINUE TO MONITOR.
[2020-07-19 11:40] VITALS: BP 114/56; PULSE 60; RESP 17; TEMP 36.7; O2SAT 98
[2020-07-19 11:42] LABS: Glucose, Whole Blood 180 mg/dL (60-115)
[2020-07-19 12:56] LABS: Alanine Aminotransferase 19 U/L (0-40); Albumin Level 2.9 g/dL (3.5-5.0); Alkaline Phosphatase 68 U/L (39-117); Aspartate Amino Transferase 26 U/L (5-37); Bilirubin Direct 0.6 mg/dL (0.0-0.5); Bilirubin Total 1.1 mg/dL (0.0-1.0); Lactate Dehydrogenase 236 U/L (118-273); Total Protein 5.3 g/dL (6.5-8.0)
--- NOTE | 2020-07-19 13:42 | P.DS_ITS ---
DS: Providers Provider Date of Service: 07/19/20 Date of admission: 07/19/20 08:47 Primary care physician: Juan M Rogers MD Consults: 07/16/20 23:17 Consult to Nephrology Routine Consulting Provider: [facility] Reason for consultation: GOOD Has provider been notified: Yes 07/16/20 23:35 Consult to Hematology / Oncology Routine Consulting Provider: [facility] Oncology/Hematology Reason for consultation: mediastinal mass Has provider been notified: No 07/18/20 10:37 Consult to Infectious Diseases Routine Consulting Provider: Suzy Kurtz Reason for consultation: ABNORMAL CXR , ?recent covid Has provider been notified: No DS: Diagnosis Discharge Diagnosis (1) GOOD (acute kidney injury): Status: Acute (2) COVID-19: Status: Acute DS: Medications Discharge Medications Home Medications: Home Medications Medication Instructions Recorded Confirmed Eliquis 5 mg PO BID 07/02/20 07/16/20 carvedilol 3.125 mg PO BID 07/02/20 07/16/20 glipizide 5 mg PO DAILY 07/02/20 07/16/20 losartan 50 mg PO DAILY 07/02/20 07/16/20 melatonin 5 mg PO BEDTIME 07/02/20 07/16/20 omeprazole 20 mg PO DAILY PRN 07/02/20 07/16/20 rosuvastatin 10 mg PO DAILY 07/02/20 07/16/20 torsemide 40 mg PO BID 07/02/20 07/16/20 DS: Summary Hospital Course Hospital Course: 79 y/o male with an extensive PMHX who presented from home due to generalized weakness. Per history provided by the patient, for the past several days has be en feeling weak which has been present on and off since patient was recently discharged from the hospital. Patient was recently treated due to acute respiratory failure due to covid 19 infection requiring home oxygen upon discharged. Patient denies any episode of chest pain, SOB, nausea, vomiting, cough or fever. On presentation to the ED BP is found to be 100/55 mmhg, no evidence of fever, WBC of 15.8, INR of 2.3, Creatinine of 2.3 from 1.2. Ferritin of 1157, LDH of 348, Covid + and evidence of hematuria. CT chest showing bilateral ground glass opacities from recuperating covid 19 infection and evidence of a mediastinal mass which could represent thyroid tissue vs lymphoma. Nephrology was contacted per ED who recommended tu do serum osmolarity and urine lytes as well as admit the patient for renal monitoring with hydration. Patient seen and examined at the bedside, laying down in bed in no acute distress. ROS as above otherwise negative. Physical exam unremarkable. Hospital Course problem canas section: Patient came with a KI probably secondary to dehydration/also blood pressure medication: Subsequently we put hold blood pressure medication and diuretics and hydrated: GOOD says seems to be improved. Initially patient got Burrell placed in ED for fluid management, Burrell removed upon discharge and patient urinated fine. Patient's losartan is on hold until repeat BMP outpatient with PCP in next few days and further use as per PCP., consider outpatient nephrology evaluation as needed. Patient had recent COVID infection and treated with dexamethasone that time: Patient asymptomatic but chest imaging shows COVID changes , seen by infectious disease no further workup or intervention , please repeat chest imaging 3-4 weeks to see resolution of pneumonia changes with PCP. Also on the chest CT initially question of mediastinal mass: Discussed with the Oncology: Added LDH, immunofixation,SPEP. Patient is to follow up outpatient with Oncology. Above management discussed with the patient in detail length he understand and in agreement with the above plan, time spent 50 minutes and 50% time spent on counseling. Significant findings: As above. Procedures performed: None. Treatment and response: As above. Complications: None. Time Spent with Patient Time attestation: Total time spent providing and/or coordinating discharge services: Discharge coordination time: Greater than 30 minutes Physical Exam Vital Signs: Vital Signs: Last Vital Signs Temp 98.1 F 07/19/20 11:40 Pulse 60 07/19/20 11:40 Resp 17 07/19/20 11:40 BP 114/56 L 07/19/20 11:40 Pulse Ox 98 07/19/20 11:40 Body Mass Index 26.9 Physical exam: Constitutional: Not in acute distress Cvs: [id number], [id number] , no murmur res: clear to auscultation ,no rhonchii or wheezing abd: no rebound or guarding ,nt, bs present. ext pulses present , no cyanosis neuro: axo3 , nonfocal. DS: Data Data Completed and Pending Labs on day of discharge: Laboratory Tests 0107/16/20 07/16/20 20:04 20:04 20:04 WBC 15.8 H RBC 4.22 L D Hgb 12.8 L D Hct 38.0 L D MCV 90.0 MCH 30.3 MCHC 33.7 RDW 14.0 Plt Count 194 MPV 10.5 Immature Gran % (Auto) 0.4 Neut % (Auto) 69.6 Lymph % (Auto) 24.7 [place] % (Auto) 4.6 Eos % (Auto) 0.6 Baso % (Auto) 0.1 Lymph # (Auto) 3.9 [place] # (Auto) 0.7 Eos # (Auto) 0.1 Baso # (Auto) 0.0 Abs Immat Gran (auto) 0.06 H Absolute Neuts (auto) 11.0 H Absolute Nucleated RBC 0.000 Nucleated RBC % (auto) 0.0 PT 27.2 H D INR 2.3 H APTT 38.5 H Sodium 136 Potassium 4.1 Chloride 94 L Carbon Dioxide 27 Anion Gap 19 BUN 88 H* D Creatinine 2.31 H Estim Creat Clear Calc 24.6 Estimated GFR 28 POC Glucose Random Glucose 204 H Estimat Average Glucose Hemoglobin A1c % Osmolality Lactic Acid Calcium 8.2 L D Magnesium Ferritin 1157 H Total Bilirubin 1.9 H Direct Bilirubin AST 34 ALT 30 Alkaline Phosphatase 80 Lactate Dehydrogenase 348 H Troponin I High Sens C-Reactive Protein 0.26 Total Protein 7.0 Albumin 3.6 Procalcitonin Urine Color Urine Appearance Urine pH Ur Specific [place] Urine Protein Urine Glucose (UA) Urine Ketones Urine Blood Urine Nitrite Ur Leukocyte Esterase Urine RBC Urine WBC Ur Squamous Epith Cells Amorphous Sediment Urine Bacteria Hyaline Casts Granular Casts Urine Osmolality U Random Total Protein Ur Random Sodium Urine Creatinine COVID-19 (JOÃO) COVID-19 Clin Com SARS-CoV-2 IgG Ab 07/16/20 07/16/20 07/16/20 20:04 20:04 20:04 WBC RBC Hgb Hct MCV MCH MCHC RDW Plt Count MPV Immature Gran % (Auto) Neut % (Auto) Lymph % (Auto) [place] % (Auto) Eos % (Auto) Baso % (Auto) Lymph # (Auto) [place] # (Auto) Eos # (Auto) Baso # (Auto) Abs Immat Gran (auto) Absolute Neuts (auto) Absolute Nucleated RBC Nucleated RBC % (auto) PT INR APTT Sodium Potassium Chloride Carbon Dioxide Anion Gap BUN Creatinine Estim Creat Clear Calc Estimated GFR POC Glucose Random Glucose Estimat Average Glucose Hemoglobin A1c % Osmolality Lactic Acid 1.8 Calcium Magnesium Ferritin Total Bilirubin Direct Bilirubin AST ALT Alkaline Phosphatase Lactate Dehydrogenase Troponin I High Sens 24.3 C-Reactive Protein Total Protein Albumin Procalcitonin 0.11 Urine Color Urine Appearance Urine pH Ur Specific [place] Urine Protein Urine Glucose (UA) Urine Ketones Urine Blood Urine Nitrite Ur Leukocyte Esterase Urine RBC Urine WBC Ur Squamous Epith Cells Amorphous Sediment Urine Bacteria Hyaline Casts Granular Casts Urine Osmolality U Random Total Protein Ur Random Sodium Urine Creatinine COVID-19 (JOÃO) COVID-19 Clin Com SARS-CoV-2 IgG Ab 07/16/20 07/16/20 07/16/20 20:04 21:23 21:23 WBC RBC Hgb Hct MCV MCH MCHC RDW Plt Count MPV Immature Gran % (Auto) Neut % (Auto) Lymph % (Auto) [place] % (Auto) Eos % (Auto) Baso % (Auto) Lymph # (Auto) [place] # (Auto) Eos # (Auto) Baso # (Auto) Abs Immat Gran (auto) Absolute Neuts (auto) Absolute Nucleated RBC Nucleated RBC % (auto) PT INR APTT Sodium Potassium Chloride Carbon Dioxide Anion Gap BUN Creatinine Estim Creat Clear Calc Estimated GFR POC Glucose Random Glucose Estimat Average Glucose Hemoglobin A1c % Osmolality 313 H Lactic Acid Calcium Magnesium Ferritin Total Bilirubin Direct Bilirubin AST ALT Alkaline Phosphatase Lactate Dehydrogenase Troponin I High Sens C-Reactive Protein Total Protein Albumin Procalcitonin Urine Color YELLOW Urine Appearance CLEAR Urine pH 5.0 Ur Specific [place] 1.020 Urine Protein NEG Urine Glucose (UA) NEG Urine Ketones NEG Urine Blood 3+ H Urine Nitrite NEG Ur Leukocyte Esterase NEG Urine RBC 1-4 Urine WBC 0 Ur Squamous Epith Cells TRACE Amorphous Sediment 2+ Urine Bacteria NONE Hyaline Casts 1-4 Granular Casts 1-4 Urine Osmolality U Random Total Protein Ur Random Sodium < 20.0 Urine Creatinine 78.65 COVID-19 (JOÃO) COVID-19 Clin Com SARS-CoV-2 IgG Ab 07/16/20 07/16/20 07/17/20 21:23 22:53 00:52 WBC RBC Hgb Hct MCV MCH MCHC RDW Plt Count MPV Immature Gran % (Auto) Neut % (Auto) Lymph % (Auto) [place] % (Auto) Eos % (Auto) Baso % (Auto) Lymph # (Auto) [place] # (Auto) Eos # (Auto) Baso # (Auto) Abs Immat Gran (auto) Absolute Neuts (auto) Absolute Nucleated RBC Nucleated RBC % (auto) PT INR APTT Sodium Potassium Chloride Carbon Dioxide Anion Gap BUN Creatinine Estim Creat Clear Calc Estimated GFR POC Glucose 211 H Random Glucose Estimat Average Glucose Hemoglobin A1c % Osmolality Lactic Acid Calcium Magnesium Ferritin Total Bilirubin Direct Bilirubin AST ALT Alkaline Phosphatase Lactate Dehydrogenase Troponin I High Sens C-Reactive Protein Total Protein Albumin Procalcitonin Urine Color Urine Appearance Urine pH Ur Specific [place] Urine Protein Urine Glucose (UA) Urine Ketones Urine Blood Urine Nitrite Ur Leukocyte Esterase Urine RBC Urine WBC Ur Squamous Epith Cells Amorphous Sediment Urine Bacteria Hyaline Casts Granular Casts Urine Osmolality 366 L U Random Total Protein Ur Random Sodium Urine Creatinine COVID-19 (JOÃO) Positive A COVID-19 Clin Com See Note SARS-CoV-2 IgG Ab 07/17/20 07/17/20 07/17/20 06:41 06:43 06:43 WBC 17.9 H RBC 4.29 L Hgb 13.0 L Hct 38.5 L MCV 89.7 MCH 30.3 MCHC 33.8 RDW 13.7 Plt Count 161 MPV 10.1 Immature Gran % (Auto) 0.4 Neut % (Auto) 70.6 Lymph % (Auto) 21.4 [place] % (Auto) 6.6 Eos % (Auto) 0.9 Baso % (Auto) 0.1 Lymph # (Auto) 3.8 [place] # (Auto) 1.2 Eos # (Auto) 0.2 Baso # (Auto) 0.0 Abs Immat Gran (auto) 0.08 H Absolute Neuts (auto) 12.6 H Absolute Nucleated RBC 0.000 Nucleated RBC % (auto) 0.0 PT INR APTT Sodium 141 Potassium 3.2 L D Chloride 100 Carbon Dioxide 28 Anion Gap 16 BUN 81 H* Creatinine 2.02 H Estim Creat Clear Calc 28.1 Estimated GFR 32 POC Glucose Random Glucose 80 D Estimat Average Glucose 183 Hemoglobin A1c % 8.0 Osmolality Lactic Acid Calcium 8.4 Magnesium 2.6 Ferritin Total Bilirubin Direct Bilirubin AST ALT Alkaline Phosphatase Lactate Dehydrogenase Troponin I High Sens C-Reactive Protein Total Protein Albumin Procalcitonin Urine Color Urine Appearance Urine pH Ur Specific [place] Urine Protein Urine Glucose (UA) Urine Ketones Urine Blood Urine Nitrite Ur Leukocyte Esterase Urine RBC Urine WBC Ur Squamous Epith Cells Amorphous Sediment Urine Bacteria Hyaline Casts Granular Casts Urine Osmolality U Random Total Protein Ur Random Sodium Urine Creatinine COVID-19 (JOÃO) COVID-19 Clin Com SARS-CoV-2 IgG Ab 07/17/20 07/17/20 07/17/20 09:44 14:03 16:06 WBC RBC Hgb Hct MCV MCH MCHC RDW Plt Count MPV Immature Gran % (Auto) Neut % (Auto) Lymph % (Auto) [place] % (Auto) Eos % (Auto) Baso % (Auto) Lymph # (Auto) [place] # (Auto) Eos # (Auto) Baso # (Auto) Abs Immat Gran (auto) Absolute Neuts (auto) Absolute Nucleated RBC Nucleated RBC % (auto) PT INR APTT Sodium Potassium Chloride Carbon Dioxide Anion Gap BUN Creatinine Estim Creat Clear Calc Estimated GFR POC Glucose 111 213 H Random Glucose Estimat Average Glucose Hemoglobin A1c % Osmolality Lactic Acid Calcium Magnesium Ferritin Total Bilirubin Direct Bilirubin AST ALT Alkaline Phosphatase Lactate Dehydrogenase Troponin I High Sens C-Reactive Protein Total Protein Albumin Procalcitonin Urine Color Urine Appearance Urine pH Ur Specific [place] Urine Protein Urine Glucose (UA) Urine Ketones Urine Blood Urine Nitrite Ur Leukocyte Esterase Urine RBC Urine WBC Ur Squamous Epith Cells Amorphous Sediment Urine Bacteria Hyaline Casts Granular Casts Urine Osmolality U Random Total Protein 22 H Ur Random Sodium < 20.0 Urine Creatinine 67.33 COVID-19 (JOÃO) COVID-19 Clin Com SARS-CoV-2 IgG Ab 07/17/20 07/17/20 07/17/20 16:45 18:28 20:30 WBC RBC Hgb Hct MCV MCH MCHC RDW Plt Count MPV Immature Gran % (Auto) Neut % (Auto) Lymph % (Auto) [place] % (Auto) Eos % (Auto) Baso % (Auto) Lymph # (Auto) [place] # (Auto) Eos # (Auto) Baso # (Auto) Abs Immat Gran (auto) Absolute Neuts (auto) Absolute Nucleated RBC Nucleated RBC % (auto) PT INR APTT Sodium Potassium Chloride Carbon Dioxide Anion Gap BUN Creatinine Estim Creat Clear Calc Estimated GFR POC Glucose 242 H 193 H 187 H Random Glucose Estimat Average Glucose Hemoglobin A1c % Osmolality Lactic Acid Calcium Magnesium Ferritin Total Bilirubin Direct Bilirubin AST ALT Alkaline Phosphatase Lactate Dehydrogenase Troponin I High Sens C-Reactive Protein Total Protein Albumin Procalcitonin Urine Color Urine Appearance Urine pH Ur Specific [place] Urine Protein Urine Glucose (UA) Urine Ketones Urine Blood Urine Nitrite Ur Leukocyte Esterase Urine RBC Urine WBC Ur Squamous Epith Cells Amorphous Sediment Urine Bacteria Hyaline Casts Granular Casts Urine Osmolality U Random Total Protein Ur Random Sodium Urine Creatinine COVID-19 (JOÃO) COVID-19 Clin Com SARS-CoV-2 IgG Ab 07/18/20 07/18/20 07/18/20 06:41 06:41 07:30 WBC 10.0 RBC 4.01 L Hgb 12.3 L Hct 38.0 L MCV 94.8 D MCH 30.7 MCHC 32.4 RDW 14.0 Plt Count TNP MPV TNP Immature Gran % (Auto) Neut % (Auto) Lymph % (Auto) [place] % (Auto) Eos % (Auto) Baso % (Auto) Lymph # (Auto) [place] # (Auto) Eos # (Auto) Baso # (Auto) Abs Immat Gran (auto) Absolute Neuts (auto) Absolute Nucleated RBC 0.000 Nucleated RBC % (auto) 0.0 PT INR APTT Sodium 140 Potassium 4.2 Chloride 105 Carbon Dioxide 25 Anion Gap 14 BUN 53 H Creatinine 1.43 H Estim Creat Clear Calc 39.8 Estimated GFR 48 POC Glucose 125 H Random Glucose 124 H D Estimat Average Glucose Hemoglobin A1c % Osmolality Lactic Acid Calcium 7.7 L D Magnesium Ferritin Total Bilirubin 1.0 Direct Bilirubin 0.4 AST 29 ALT 21 Alkaline Phosphatase 68 Lactate Dehydrogenase Troponin I High Sens C-Reactive Protein Total Protein 5.6 L Albumin 2.9 L Procalcitonin Urine Color Urine Appearance Urine pH Ur Specific [place] Urine Protein Urine Glucose (UA) Urine Ketones Urine Blood Urine Nitrite Ur Leukocyte Esterase Urine RBC Urine WBC Ur Squamous Epith Cells Amorphous Sediment Urine Bacteria Hyaline Casts Granular Casts Urine Osmolality U Random Total Protein Ur Random Sodium Urine Creatinine COVID-19 (JOÃO) COVID-19 Clin Com SARS-CoV-2 IgG Ab 07/18/20 07/18/20 07/18/20 11:30 11:32 16:49 WBC RBC Hgb Hct MCV MCH MCHC RDW Plt Count MPV Immature Gran % (Auto) Neut % (Auto) Lymph % (Auto) [place] % (Auto) Eos % (Auto) Baso % (Auto) Lymph # (Auto) [place] # (Auto) Eos # (Auto) Baso # (Auto) Abs Immat Gran (auto) Absolute Neuts (auto) Absolute Nucleated RBC Nucleated RBC % (auto) PT INR APTT Sodium Potassium Chloride Carbon Dioxide Anion Gap BUN Creatinine Estim Creat Clear Calc Estimated GFR POC Glucose 167 H 197 H Random Glucose Estimat Average Glucose Hemoglobin A1c % Osmolality Lactic Acid Calcium Magnesium Ferritin Total Bilirubin Direct Bilirubin AST ALT Alkaline Phosphatase Lactate Dehydrogenase Troponin I High Sens C-Reactive Protein Total Protein Albumin Procalcitonin Urine Color Urine Appearance Urine pH Ur Specific [place] Urine Protein Urine Glucose (UA) Urine Ketones Urine Blood Urine Nitrite Ur Leukocyte Esterase Urine RBC Urine WBC Ur Squamous Epith Cells Amorphous Sediment Urine Bacteria Hyaline Casts Granular Casts Urine Osmolality U Random Total Protein Ur Random Sodium Urine Creatinine COVID-19 (JOÃO) COVID-19 Clin Com SARS-CoV-2 IgG Ab Positive 07/18/20 07/19/20 07/19/20 20:24 06:31 07:27 WBC RBC Hgb Hct MCV MCH MCHC RDW Plt Count MPV Immature Gran % (Auto) Neut % (Auto) Lymph % (Auto) [place] % (Auto) Eos % (Auto) Baso % (Auto) Lymph # (Auto) [place] # (Auto) Eos # (Auto) Baso # (Auto) Abs Immat Gran (auto) Absolute Neuts (auto) Absolute Nucleated RBC Nucleated RBC % (auto) PT INR APTT Sodium 139 Potassium 3.5 Chloride 105 Carbon Dioxide 24 Anion Gap 14 BUN 37 H Creatinine 1.21 Estim Creat Clear Calc 47.0 Estimated GFR 58 POC Glucose 253 H 101 Random Glucose 102 Estimat Average Glucose Hemoglobin A1c % Osmolality Lactic Acid Calcium 7.9 L Magnesium Ferritin Total Bilirubin 1.1 H Direct Bilirubin 0.6 H AST 26 ALT 19 Alkaline Phosphatase 68 Lactate Dehydrogenase 236 Troponin I High Sens C-Reactive Protein Total Protein 5.3 L Albumin 2.9 L Procalcitonin Urine Color Urine Appearance Urine pH Ur Specific [place] Urine Protein Urine Glucose (UA) Urine Ketones Urine Blood Urine Nitrite Ur Leukocyte Esterase Urine RBC Urine WBC Ur Squamous Epith Cells Amorphous Sediment Urine Bacteria Hyaline Casts Granular Casts Urine Osmolality U Random Total Protein Ur Random Sodium Urine Creatinine COVID-19 (JOÃO) COVID-19 Clin Com SARS-CoV-2 IgG Ab 07/19/20 11:32 WBC RBC Hgb Hct MCV MCH MCHC RDW Plt Count MPV Immature Gran % (Auto) Neut % (Auto) Lymph % (Auto) [place] % (Auto) Eos % (Auto) Baso % (Auto) Lymph # (Auto) [place] # (Auto) Eos # (Auto) Baso # (Auto) Abs Immat Gran (auto) Absolute Neuts (auto) Absolute Nucleated RBC Nucleated RBC % (auto) PT INR APTT Sodium Potassium Chloride Carbon Dioxide Anion Gap BUN Creatinine Estim Creat Clear Calc Estimated GFR POC Glucose 180 H Random Glucose Estimat Average Glucose Hemoglobin A1c % Osmolality Lactic Acid Calcium Magnesium Ferritin Total Bilirubin Direct Bilirubin AST ALT Alkaline Phosphatase Lactate Dehydrogenase Troponin I High Sens C-Reactive Protein Total Protein Albumin Procalcitonin Urine Color Urine Appearance Urine pH Ur Specific [place] Urine Protein Urine Glucose (UA) Urine Ketones Urine Blood Urine Nitrite Ur Leukocyte Esterase Urine RBC Urine WBC Ur Squamous Epith Cells Amorphous Sediment Urine Bacteria Hyaline Casts Granular Casts Urine Osmolality U Random Total Protein Ur Random Sodium Urine Creatinine COVID-19 ([facility]ÃO) COVID-19 Clin Com SARS-CoV-2 IgG Ab Preliminary micro results at discharge 07/16/20 20:46 Blood Culture - Preliminary Blood - Venous No growth after 48 hours. 07/16/20 20:04 Blood Culture - Preliminary Blood - Venous No growth after 48 hours. Discharge Plan Discharge Patient Disposition: Home, Self-Care Referrals: Name,MD Juan M [Primary Care Provider] - Discharge Medications: Continued carvedilol 3.125 mg Tablet 3.125 mg PO BID RF: 0 omeprazole 20 mg Capsule,Delayed Release(Dr/Ec) 20 mg PO DAILY PRN (Reason: indegestion) RF: 0 rosuvastatin 10 mg Tablet 10 mg PO DAILY RF: 0 melatonin 5 mg Tablet 5 mg PO BEDTIME RF: 0 Eliquis 5 mg Tablet 5 mg PO BID RF: 0 torsemide 20 mg Tablet 40 mg PO BID RF: 0 glipizide 5 mg Tablet 5 mg PO DAILY RF: 0 Held losartan 50 mg Tablet 50 mg PO DAILY RF: 0 Hold Instructions: Resume on 07/21/20. Discharge Orders: Discharge Order (Routine); Ordered 07/19/20 Ordered By: Lawrence Carlisle Diet: advance to usual diet, low fat, low cholesterol and low salt diet Activity on Discharge: As tolerated Stand Alone Forms: Patient Portal Discharge page Other Ambulatory Orders: Basic Metabolic Panel Fasting (Routine) Timeframe: 2 Days Facility: [facility] - Location: Laboratory Ordered By: Lawrence Carlisle Visit Report Forms: Patient Portal Discharge page Care Plan Goals: Patient came with a KI probably secondary to dehydration/also blood pressure medication: Subsequently we put hold blood pressure medication and diuretics and hydrated: GOOD says seems to be improved. Initially patient got Burrell placed in ED for fluid management, Burrell removed upon discharge and patient urinated fine. Patient's losartan is on hold until repeat BMP outpatient with PCP in next few days and further use as per PCP., consider outpatient nephrology evaluation as needed. Patient had recent COVID infection and treated with dexamethasone that time: Patient asymptomatic but chest imaging shows COVID changes , seen by infectious disease no further workup or intervention , please repeat chest imaging 3-4 weeks to see resolution of pneumonia changes with PCP. Also on the chest CT initially question of mediastinal mass: Discussed with the Oncology: Added LDH, immunofixation,SPEP. Patient is to follow up outpatient with Oncology. Health Concerns: As above. Plan of Treatment: As above.
--- NOTE | 2020-07-19 13:46 | P.PNIM_ITS ---
Subjective Subjective Date of Service: 07/18/20 Interval History: good Review of Systems Denies any chest pain or abdominal pain or fever or chills or nausea. Or any urine complaints. Physical Exam Vital Signs: Vital Signs: Last Vital Signs Temp 98.1 F 07/19/20 11:40 Pulse 60 07/19/20 11:40 Resp 17 07/19/20 11:40 BP 114/56 L 07/19/20 11:40 Pulse Ox 98 07/19/20 11:40 Body Mass Index 26.9 Physical exam: Constitutional: Note in acute distress Cvs: [id number], [id number] , no murmur res: clear to auscultation ,no rhonchii or wheezing abd: no rebound or guarding ,nt, bs present. ext pulses present , no cyanosis neuro: axo3 , nonfocal. Objective Data Current Medications Generic Name Dose Route Start Last Admin Trade Name Freq PRN Reason Stop Dose Admin Albuterol Sulfate 2 puff 07/17/20 08:49 Albuterol Sulfate 90 Mcg 8 Gm Inhaler INHALE [id number] PRN ATELACTASIS Apixaban 5 mg 07/17/20 09:00 07/19/20 08:04 Apixaban 5 Mg Tablet PO 5 mg BID [facility] Administration Carvedilol 3.125 mg 07/17/20 09:00 07/19/20 08:04 Carvedilol 3.125 Mg Tablet PO 3.125 mg BID [facility] Administration Protocol Insulin Human Lispro 0 unit 07/18/20 16:30 07/19/20 11:47 Insulin Lispro 100 Unit/Ml 3 Ml Vial SUBCUT Not Given QIDACHS [facility] Protocol Omeprazole 20 mg 07/16/20 23:21 Omeprazole 20 Mg Capsule.Dr PO DAILY PRN indegestion Sodium Chloride 3 ml 07/17/20 00:00 07/19/20 08:04 0.9 % Sodium Chloride Flush 3 Ml Syringe IVFLUSH 3 ml QSHIFT [facility] Administration Labs CBC & Chem 7: 07/18/20 06:41 07/19/20 06:31 Microbiology Microbiology Results: Microbiology 07/16/20 20:46 Blood - Venous Blood Culture - Preliminary No growth after 48 hours. 07/16/20 20:04 Blood - Venous Blood Culture - Preliminary No growth after 48 hours. Assessment and Plan (1) GOOD (acute kidney injury): Status: Acute (2) Mediastinal mass: Status: Acute (3) GOOD (acute kidney injury): Status: Acute (4) Dehydration: Status: Acute (5) Pneumonia due to 2019 novel coronavirus: Status: Acute (6) Hypoxia: Status: Acute (7) Weakness: Status: Acute (8) Persistent atrial fibrillation: Status: Acute Assessment and Plan: 79-year-old man who is being admitted with GOOD: 1.GOOD: Seems to be multifactorial probably poor oral intake, htn meds :losartan , torcemide. Patient gently hydrated, GOOD seems to be improving, as well as hyperkalemia. Monitor renal function closely US renal/bladder-seems fine , right kidney slightly smaller than left. nephro follow up noted. Once the GOOD improved will add back his htn meds. Atrial fibrillation. Continue Eliquis and beta-ulises. Diabetes mellitus: fs with sliding scale coverage ADA diet. hold glipizide HTn: Continue Coreg. .
--- NOTE | 2020-07-19 15:39 | P.DS_ITS ---
DS: Providers Provider Date of Service: 07/19/20 Date of admission: 07/19/20 08:47 Primary care physician: Juan M Rogers MD Consults: 07/16/20 23:17 Consult to Nephrology Routine Consulting Provider: [facility] Reason for consultation: GOOD Has provider been notified: Yes 07/16/20 23:35 Consult to Hematology / Oncology [place]ine Consulting [place] [facility] [place] Reason for consultation: mediastinal mass Has provider been notified: No 07/18/20 10:37 Consult to Infectious Diseases Routine Consulting Provider: Suzy Kurtz Reason for consultation: ABNORMAL CXR , ?recent covid Has provider been notified: No DS: Diagnosis Discharge Diagnosis (1) GOOD (acute kidney injury): Status: Acute (2) COVID-19: Status: Acute DS: Medications Discharge Medications Home Medications: Home Medications Medication Instructions Recorded Confirmed Eliquis 5 mg PO BID 07/02/20 07/16/20 carvedilol 3.125 mg PO BID 07/02/20 07/16/20 glipizide 5 mg PO DAILY 07/02/20 07/16/20 losartan 50 mg PO DAILY 07/02/20 07/16/20 melatonin 5 mg PO BEDTIME 07/02/20 07/16/20 omeprazole 20 mg PO DAILY PRN 07/02/20 07/16/20 rosuvastatin 10 mg PO DAILY 07/02/20 07/16/20 torsemide 40 mg PO BID 07/02/20 07/16/20 DS: Summary Hospital Course Hospital Course: 79 y/o male with an extensive PMHX who presented from home due to generalized weakness. Per history provided by the patient, for the past several days has be en feeling weak which has been present on and off since patient was recently discharged from the hospital. Patient was recently treated due to acute respiratory failure due to covid 19 infection requiring home oxygen upon discharged. Patient denies any episode of chest pain, SOB, nausea, vomiting, cough or fever. On presentation to the ED BP is found to be 100/55 mmhg, no evidence of fever, WBC of 15.8, INR of 2.3, Creatinine of 2.3 from 1.2. Ferritin of 1157, LDH of 348, Covid + and evidence of hematuria. CT chest showing bilateral ground glass opacities from recuperating covid 19 infection and evidence of a mediastinal mass which could represent thyroid tissue vs lymphoma. Nephrology was contacted per ED who recommended tu do serum osmolarity and urine lytes as well as admit the patient for renal monitoring with hydration. Patient seen and examined at the bedside, laying down in bed in no acute distress. ROS as above otherwise negative. Physical exam unremarkable. Hospital Course problem canas section: Patient came with a KI probably secondary to dehydration/also blood pressure medication: Subsequently we put hold blood pressure medication and diuretics and hydrated: GOOD says seems to be improved. Initially patient got Burrell placed in ED for fluid management, Burrell removed upon discharge and patient urinated fine. Patient's losartan is on hold until repeat BMP outpatient with PCP in next few days and further use as per PCP., consider outpatient nephrology evaluation as needed. Patient had recent COVID infection and treated with dexamethasone that time: Patient asymptomatic but chest imaging shows COVID changes , seen by infectious disease no further workup or intervention , please repeat chest imaging 3-4 weeks to see resolution of pneumonia changes with PCP. Also on the chest CT initially question of mediastinal mass: Discussed with the Oncology: Added LDH, immunofixation,SPEP. Patient is to follow up outpatient with Oncology in next 2-3 weeks. Above management discussed with the patient in detail length he understand and in agreement with the above plan, time spent 50 minutes and 50% time spent on counseling. Significant findings: As above. Procedures performed: None. Treatment and response: As above. Complications: None. Time Spent with Patient Time attestation: Total time spent providing and/or coordinating discharge services: Discharge coordination time: Greater than 30 minutes Physical Exam Vital Signs: Vital Signs: Last Vital Signs Temp 98.1 F 07/19/20 11:40 Pulse 60 07/19/20 11:40 Resp 17 07/19/20 11:40 BP 114/56 L 07/19/20 11:40 Pulse Ox 98 07/19/20 11:40 Body Mass Index 26.9 Physical exam: Constitutional: Not in acute distress HEENT: Eyes: anicteric ,no discharge Cvs: rrr, [id number] , no murmur res: clear to auscultation ,no rhonchii or wheezing abd: no rebound or guarding ,nt, bs present. ext pulses present , no cyanosis neuro: axo3 , nonfocal. DS: Data Data Completed and Pending Labs on day of discharge: Laboratory Tests 07/16/20 07/16/20 07/16/20 20:04 20:04 20:04 WBC 15.8 H RBC 4.22 L D Hgb 12.8 L D Hct 38.0 L D MCV 90.0 MCH 30.3 MCHC 33.7 RDW 14.0 Plt Count 194 MPV 10.5 Immature Gran % (Auto) 0.4 Neut % (Auto) 69.6 Lymph % (Auto) 24.7 Imperial % (Auto) 4.6 Eos % (Auto) 0.6 Baso % (Auto) 0.1 Lymph # (Auto) 3.9 Imperial # (Auto) 0.7 Eos # (Auto) 0.1 Baso # (Auto) 0.0 Abs Immat Gran (auto) 0.06 H Absolute Neuts (auto) 11.0 H Absolute Nucleated RBC 0.000 Nucleated RBC % (auto) 0.0 PT 27.2 H D INR 2.3 H APTT 38.5 H Sodium 136 Potassium 4.1 Chloride 94 L Carbon Dioxide 27 Anion Gap 19 BUN 88 H* D Creatinine 2.31 H Estim Creat Clear Calc 24.6 Estimated GFR 28 POC Glucose Random Glucose 204 H Estimat Average Glucose Hemoglobin A1c % Osmolality Lactic Acid Calcium 8.2 L D Magnesium Ferritin 1157 H Total Bilirubin 1.9 H Direct Bilirubin AST 34 ALT 30 Alkaline Phosphatase 80 Lactate Dehydrogenase 348 H Troponin I High Sens C-Reactive Protein 0.26 Total Protein 7.0 Albumin 3.6 Procalcitonin Urine Color Urine Appearance Urine pH Ur Specific [place] Urine Protein Urine Glucose (UA) Urine Ketones Urine Blood Urine Nitrite Ur Leukocyte Esterase Urine RBC Urine WBC Ur Squamous Epith Cells Amorphous Sediment Urine Bacteria Hyaline Casts Granular Casts Urine Osmolality U Random Total Protein Ur Random Sodium Urine Creatinine COVID-19 (JOÃO) COVID-19 Clin Com SARS-CoV-2 IgG Ab 07/16/20 07/16/20 07/16/20 20:04 20:04 20:04 WBC RBC Hgb Hct MCV MCH MCHC RDW Plt Count MPV Immature Gran % (Auto) Neut % (Auto) Lymph % (Auto) [place] % (Auto) Eos % (Auto) Baso % (Auto) Lymph # (Auto) [place] # (Auto) Eos # (Auto) Baso # (Auto) Abs Immat Gran (auto) Absolute Neuts (auto) Absolute Nucleated RBC Nucleated RBC % (auto) PT INR APTT Sodium Potassium Chloride Carbon Dioxide Anion Gap BUN Creatinine Estim Creat Clear Calc Estimated GFR POC Glucose Random Glucose Estimat Average Glucose Hemoglobin A1c % Osmolality Lactic Acid 1.8 Calcium Magnesium Ferritin Total Bilirubin Direct Bilirubin AST ALT Alkaline Phosphatase Lactate Dehydrogenase Troponin I High Sens 24.3 C-Reactive Protein Total Protein Albumin Procalcitonin 0.11 Urine Color Urine Appearance Urine pH Ur Specific [place] Urine Protein Urine Glucose (UA) Urine Ketones Urine Blood Urine Nitrite Ur Leukocyte Esterase Urine RBC Urine WBC Ur Squamous Epith Cells Amorphous Sediment Urine Bacteria Hyaline Casts Granular Casts Urine Osmolality U Random Total Protein Ur Random Sodium Urine Creatinine COVID-19 (JOÃO) COVID-19 Clin Com SARS-CoV-2 IgG Ab 07/16/20 07/16/20 07/16/20 20:04 21:23 21:23 WBC RBC Hgb Hct MCV MCH MCHC RDW Plt Count MPV Immature Gran % (Auto) Neut % (Auto) Lymph % (Auto) [place] % (Auto) Eos % (Auto) Baso % (Auto) Lymph # (Auto) [place] # (Auto) Eos # (Auto) Baso # (Auto) Abs Immat Gran (auto) Absolute Neuts (auto) Absolute Nucleated RBC Nucleated RBC % (auto) PT INR APTT Sodium Potassium Chloride Carbon Dioxide Anion Gap BUN Creatinine Estim Creat Clear Calc Estimated GFR POC Glucose Random Glucose Estimat Average Glucose Hemoglobin A1c % Osmolality 313 H Lactic Acid Calcium Magnesium Ferritin Total Bilirubin Direct Bilirubin AST ALT Alkaline Phosphatase Lactate Dehydrogenase Troponin I High Sens C-Reactive Protein Total Protein Albumin Procalcitonin Urine Color YELLOW Urine Appearance CLEAR Urine pH 5.0 Ur Specific [place] 1.020 Urine Protein NEG Urine Glucose (UA) NEG Urine Ketones NEG Urine Blood 3+ H Urine Nitrite NEG Ur Leukocyte Esterase NEG Urine RBC 1-4 Urine WBC 0 Ur Squamous Epith Cells TRACE Amorphous Sediment 2+ Urine Bacteria NONE Hyaline Casts 1-4 Granular Casts 1-4 Urine Osmolality U Random Total Protein Ur Random Sodium < 20.0 Urine Creatinine 78.65 COVID-19 (JOÃO) COVID-19 Clin Com SARS-CoV-2 IgG Ab 07/16/20 07/16/20 07/17/20 21:23 22:53 00:52 WBC RBC Hgb Hct MCV MCH MCHC RDW Plt Count MPV Immature Gran % (Auto) Neut % (Auto) Lymph % (Auto) [place] % (Auto) Eos % (Auto) Baso % (Auto) Lymph # (Auto) [place] # (Auto) Eos # (Auto) Baso # (Auto) Abs Immat Gran (auto) Absolute Neuts (auto) Absolute Nucleated RBC Nucleated RBC % (auto) PT INR APTT Sodium Potassium Chloride Carbon Dioxide Anion Gap BUN Creatinine Estim Creat Clear Calc Estimated GFR POC Glucose 211 H Random Glucose Estimat Average Glucose Hemoglobin A1c % Osmolality Lactic Acid Calcium Magnesium Ferritin Total Bilirubin Direct Bilirubin AST ALT Alkaline Phosphatase Lactate Dehydrogenase Troponin I High Sens C-Reactive Protein Total Protein Albumin Procalcitonin Urine Color Urine Appearance Urine pH Ur Specific [place] Urine Protein Urine Glucose (UA) Urine Ketones Urine Blood Urine Nitrite Ur Leukocyte Esterase Urine RBC Urine WBC Ur Squamous Epith Cells Amorphous Sediment Urine Bacteria Hyaline Casts Granular Casts Urine Osmolality 366 L U Random Total Protein Ur Random Sodium Urine Creatinine COVID-19 (JOÃO) Positive A COVID-19 Clin Com See Note SARS-CoV-2 IgG Ab 07/17/20 07/17/20 07/17/20 06:41 06:43 06:43 WBC 17.9 H RBC 4.29 L Hgb 13.0 L Hct 38.5 L MCV 89.7 MCH 30.3 MCHC 33.8 RDW 13.7 Plt Count 161 MPV 10.1 Immature Gran % (Auto) 0.4 Neut % (Auto) 70.6 Lymph % (Auto) 21.4 [place] % (Auto) 6.6 Eos % (Auto) 0.9 Baso % (Auto) 0.1 Lymph # (Auto) 3.8 Imperial # (Auto) 1.2 Eos # (Auto) 0.2 Baso # (Auto) 0.0 Abs Immat Gran (auto) 0.08 H Absolute Neuts (auto) 12.6 H Absolute Nucleated RBC 0.000 Nucleated RBC % (auto) 0.0 PT INR APTT Sodium 141 Potassium 3.2 L D Chloride 100 Carbon Dioxide 28 Anion Gap 16 BUN 81 H* Creatinine 2.02 H Estim Creat Clear Calc 28.1 Estimated GFR 32 POC Glucose Random Glucose 80 D Estimat Average Glucose 183 Hemoglobin A1c % 8.0 Osmolality Lactic Acid Calcium 8.4 Magnesium 2.6 Ferritin Total Bilirubin Direct Bilirubin AST ALT Alkaline Phosphatase Lactate Dehydrogenase Troponin I High Sens C-Reactive Protein Total Protein Albumin Procalcitonin Urine Color Urine Appearance Urine pH Ur Specific [place] Urine Protein Urine Glucose (UA) Urine Ketones Urine Blood Urine Nitrite Ur Leukocyte Esterase Urine RBC Urine WBC Ur Squamous Epith Cells Amorphous Sediment Urine Bacteria Hyaline Casts Granular Casts Urine Osmolality U Random Total Protein Ur Random Sodium Urine Creatinine COVID-19 (JOÃO) COVID-19 Clin Com SARS-CoV-2 IgG Ab 07/17/20 07/17/20 07/17/20 09:44 14:03 16:06 WBC RBC Hgb Hct MCV MCH MCHC RDW Plt Count MPV Immature Gran % (Auto) Neut % (Auto) Lymph % (Auto) [place] % (Auto) Eos % (Auto) Baso % (Auto) Lymph # (Auto) [place] # (Auto) Eos # (Auto) Baso # (Auto) Abs Immat Gran (auto) Absolute Neuts (auto) Absolute Nucleated RBC Nucleated RBC % (auto) PT INR APTT Sodium Potassium Chloride Carbon Dioxide Anion Gap BUN Creatinine Estim Creat Clear Calc Estimated GFR POC Glucose 111 213 H Random Glucose Estimat Average Glucose Hemoglobin A1c % Osmolality Lactic Acid Calcium Magnesium Ferritin Total Bilirubin Direct Bilirubin AST ALT Alkaline Phosphatase Lactate Dehydrogenase Troponin I High Sens C-Reactive Protein Total Protein Albumin Procalcitonin Urine Color Urine Appearance Urine pH Ur Specific [place] Urine Protein Urine Glucose (UA) Urine Ketones Urine Blood Urine Nitrite Ur Leukocyte Esterase Urine RBC Urine WBC Ur Squamous Epith Cells Amorphous Sediment Urine Bacteria Hyaline Casts Granular Casts Urine Osmolality U Random Total Protein 22 H Ur Random Sodium < 20.0 Urine Creatinine 67.33 COVID-19 (JOÃO) COVID-19 Clin Com SARS-CoV-2 IgG Ab 07/17/20 07/17/20 07/17/20 16:45 18:28 20:30 WBC RBC Hgb Hct MCV MCH MCHC RDW Plt Count MPV Immature Gran % (Auto) Neut % (Auto) Lymph % (Auto) [place] % (Auto) Eos % (Auto) Baso % (Auto) Lymph # (Auto) [place] # (Auto) Eos # (Auto) Baso # (Auto) Abs Immat Gran (auto) Absolute Neuts (auto) Absolute Nucleated RBC Nucleated RBC % (auto) PT INR APTT Sodium Potassium Chloride Carbon Dioxide Anion Gap BUN Creatinine Estim Creat Clear Calc Estimated GFR POC Glucose 242 H 193 H 187 H Random Glucose Estimat Average Glucose Hemoglobin A1c % Osmolality Lactic Acid Calcium Magnesium Ferritin Total Bilirubin Direct Bilirubin AST ALT Alkaline Phosphatase Lactate Dehydrogenase Troponin I High Sens C-Reactive Protein Total Protein Albumin Procalcitonin Urine Color Urine Appearance Urine pH Ur Specific [place] Urine Protein Urine Glucose (UA) Urine Ketones Urine Blood Urine Nitrite Ur Leukocyte Esterase Urine RBC Urine WBC Ur Squamous Epith Cells Amorphous Sediment Urine Bacteria Hyaline Casts Granular Casts Urine Osmolality U Random Total Protein Ur Random Sodium Urine Creatinine COVID-19 (JOÃO) COVID-19 Clin Com SARS-CoV-2 IgG Ab 07/18/20 07/18/20 07/18/20 06:41 06:41 07:30 WBC 10.0 RBC 4.01 L Hgb 12.3 L Hct 38.0 L MCV 94.8 D MCH 30.7 MCHC 32.4 RDW 14.0 Plt Count TNP MPV TNP Immature Gran % (Auto) Neut % (Auto) Lymph % (Auto) [place] % (Auto) Eos % (Auto) Baso % (Auto) Lymph # (Auto) [place] # (Auto) Eos # (Auto) Baso # (Auto) Abs Immat Gran (auto) Absolute Neuts (auto) Absolute Nucleated RBC 0.000 Nucleated RBC % (auto) 0.0 PT INR APTT Sodium 140 Potassium 4.2 Chloride 105 Carbon Dioxide 25 Anion Gap 14 BUN 53 H Creatinine 1.43 H Estim Creat Clear Calc 39.8 Estimated GFR 48 POC Glucose 125 H Random Glucose 124 H D Estimat Average Glucose Hemoglobin A1c % Osmolality Lactic Acid Calcium 7.7 L D Magnesium Ferritin Total Bilirubin 1.0 Direct Bilirubin 0.4 AST 29 ALT 21 Alkaline Phosphatase 68 Lactate Dehydrogenase Troponin I High Sens C-Reactive Protein Total Protein 5.6 L Albumin 2.9 L Procalcitonin Urine Color Urine Appearance Urine pH Ur Specific [place] Urine Protein Urine Glucose (UA) Urine Ketones Urine Blood Urine Nitrite Ur Leukocyte Esterase Urine RBC Urine WBC Ur Squamous Epith Cells Amorphous Sediment Urine Bacteria Hyaline Casts Granular Casts Urine Osmolality U Random Total Protein Ur Random Sodium Urine Creatinine COVID-19 (JOÃO) COVID-19 Clin Com SARS-CoV-2 IgG Ab 07/18/20 07/18/20 07/18/20 11:30 11:32 16:49 WBC RBC Hgb Hct MCV MCH MCHC RDW Plt Count MPV Immature Gran % (Auto) Neut % (Auto) Lymph % (Auto) [place] % (Auto) Eos % (Auto) Baso % (Auto) Lymph # (Auto) [place] # (Auto) Eos # (Auto) Baso # (Auto) Abs Immat Gran (auto) Absolute Neuts (auto) Absolute Nucleated RBC Nucleated RBC % (auto) PT INR APTT Sodium Potassium Chloride Carbon Dioxide Anion Gap BUN Creatinine Estim Creat Clear Calc Estimated GFR POC Glucose 167 H 197 H Random Glucose Estimat Average Glucose Hemoglobin A1c % Osmolality Lactic Acid Calcium Magnesium Ferritin Total Bilirubin Direct Bilirubin AST ALT Alkaline Phosphatase Lactate Dehydrogenase Troponin I High Sens C-Reactive Protein Total Protein Albumin Procalcitonin Urine Color Urine Appearance Urine pH Ur Specific [place] Urine Protein Urine Glucose (UA) Urine Ketones Urine Blood Urine Nitrite Ur Leukocyte Esterase Urine RBC Urine WBC Ur Squamous Epith Cells Amorphous Sediment Urine Bacteria Hyaline Casts Granular Casts Urine Osmolality U Random Total Protein Ur Random Sodium Urine Creatinine COVID-19 (JOÃO) COVID-19 Clin Com SARS-CoV-2 IgG Ab Positive 07/18/20 07/19/20 07/19/20 20:24 06:31 07:27 WBC RBC Hgb Hct MCV MCH MCHC RDW Plt Count MPV Immature Gran % (Auto) Neut % (Auto) Lymph % (Auto) [place] % (Auto) Eos % (Auto) Baso % (Auto) Lymph # (Auto) [place] # (Auto) Eos # (Auto) Baso # (Auto) Abs Immat Gran (auto) Absolute Neuts (auto) Absolute Nucleated RBC Nucleated RBC % (auto) PT INR APTT Sodium 139 Potassium 3.5 Chloride 105 Carbon Dioxide 24 Anion Gap 14 BUN 37 H Creatinine 1.21 Estim Creat Clear Calc 47.0 Estimated GFR 58 POC Glucose 253 H 101 Random Glucose 102 Estimat Average Glucose Hemoglobin A1c % Osmolality Lactic Acid Calcium 7.9 L Magnesium Ferritin Total Bilirubin 1.1 H Direct Bilirubin 0.6 H AST 26 ALT 19 Alkaline Phosphatase 68 Lactate Dehydrogenase 236 Troponin I High Sens C-Reactive Protein Total Protein 5.3 L Albumin 2.9 L Procalcitonin Urine Color Urine Appearance Urine pH Ur Specific [place] Urine Protein Urine Glucose (UA) Urine Ketones Urine Blood Urine Nitrite Ur Leukocyte Esterase Urine RBC Urine WBC Ur Squamous Epith Cells Amorphous Sediment Urine Bacteria Hyaline Casts Granular Casts Urine Osmolality U Random Total Protein Ur Random Sodium Urine Creatinine COVID-19 (JOÃO) COVID-19 Clin Com SARS-CoV-2 IgG Ab 07/19/20 11:32 WBC RBC Hgb Hct MCV MCH MCHC RDW Plt Count MPV Immature Gran % (Auto) Neut % (Auto) Lymph % (Auto) [place] % (Auto) Eos % (Auto) Baso % (Auto) Lymph # (Auto) [place] # (Auto) Eos # (Auto) Baso # (Auto) Abs Immat Gran (auto) Absolute Neuts (auto) Absolute Nucleated RBC Nucleated RBC % (auto) PT INR APTT Sodium Potassium Chloride Carbon Dioxide Anion Gap BUN Creatinine Estim Creat Clear Calc Estimated GFR POC Glucose 180 H Random Glucose Estimat Average Glucose Hemoglobin A1c % Osmolality Lactic Acid Calcium Magnesium Ferritin Total Bilirubin Direct Bilirubin AST ALT Alkaline Phosphatase Lactate Dehydrogenase Troponin I High Sens C-Reactive Protein Total Protein Albumin Procalcitonin Urine Color Urine Appearance Urine pH Ur Specific [place] Urine Protein Urine Glucose (UA) Urine Ketones Urine Blood Urine Nitrite Ur Leukocyte Esterase Urine RBC Urine WBC Ur Squamous Epith Cells Amorphous Sediment Urine Bacteria Hyaline Casts Granular Casts Urine Osmolality U Random Total Protein Ur Random Sodium Urine Creatinine COVID-19 (JOÃO) COVID-19 Clin Com SARS-CoV-2 IgG Ab Preliminary micro results at discharge 07/16/20 20:46 Blood Culture - Preliminary Blood - Venous No growth after 48 hours. 07/16/20 20:04 Blood Culture - Preliminary Blood - Venous No growth after 48 hours. Discharge Plan Discharge Patient Disposition: Home, Self-Care Referrals: Isabel Toscano MD [Physician] - (follow up in 2 weeks) Name,MD Juan M [Primary Care Provider] - Discharge Medications: Continued carvedilol 3.125 mg Tablet 3.125 mg PO BID RF: 0 omeprazole 20 mg Capsule,Delayed Release(Dr/Ec) 20 mg PO DAILY PRN (Reason: indegestion) RF: 0 rosuvastatin 10 mg Tablet 10 mg PO DAILY RF: 0 melatonin 5 mg Tablet 5 mg PO BEDTIME RF: 0 Eliquis 5 mg Tablet 5 mg PO BID RF: 0 torsemide 20 mg Tablet 40 mg PO BID RF: 0 glipizide 5 mg Tablet 5 mg PO DAILY RF: 0 Held losartan 50 mg Tablet 50 mg PO DAILY RF: 0 Hold Instructions: Resume on 07/21/20. Discharge Orders: Discharge Order (Routine); Ordered 07/19/20 Ordered By: Lawrence Carlisle Diet: advance to usual diet, low fat, low cholesterol and low salt diet Activity on Discharge: As tolerated Stand Alone Forms: Patient Portal Discharge page Other Ambulatory Orders: Basic Metabolic Panel Fasting (Routine) Timeframe: 2 Days Facility: [facility] - Location: Laboratory Ordered By: Lawrence Carlisle Visit Report Forms: Patient Portal Discharge page Care Plan Goals: Patient came with a KI probably secondary to dehydration/also blood pressure medication: Subsequently we put hold blood pressure medication and diuretics and hydrated: GOOD says seems to be improved. Initially patient got Burrell placed in ED for fluid management, Burrell removed upon discharge and patient urinated fine. Patient's losartan is on hold until repeat BMP outpatient with PCP in next few days and further use as per PCP., consider outpatient nephrology evaluation as needed. Patient had recent COVID infection and treated with dexamethasone that time: Patient asymptomatic but chest imaging shows COVID changes , seen by infectious disease no further workup or intervention , please repeat chest imaging 3-4 weeks to see resolution of pneumonia changes with PCP. Also on the chest CT initially question of mediastinal mass: Discussed with the Oncology: Added LDH, immunofixation,SPEP. Patient is to follow up outpatient with Oncology Dr Toscano. Health Concerns: As above. Plan of Treatment: As above.
[2020-07-20 14:57] LABS: Prot Elec - Albumin 2.6 g/dL (3.8-4.8); Prot Elec - Alpha1 0.3 g/dL (0.2-0.3); Prot Elec - Alpha2 0.7 g/dL (0.5-0.9); Prot Elec - Beta 1 0.3 g/dL (0.4-0.6); Prot Elec - Beta 2 0.3 g/dL (0.2-0.5); Prot Elec - Total Protein 5.2 g/dL (6.1-8.1)
[2020-07-21 12:27] LABS: IgA 182 mg/dL (70-320); IgG 1072 mg/dL (600-1540); IgM 130 mg/dL (50-300)
== END 2020-07-19 17:19 | disposition home or self-care (01) | DRG 682 ==
LOC: HO.ED 21:53 → HO.EDOVER 23:29 → HO.ISO 07-17 16:29
PROVIDERS: Internal Medicine; Internal Medicine Nephrology; Nurse Practitioner Primary Care; Admitting Provider Internal Medicine; Emergency Provider Emergency Medicine; PCP Internal Medicine Geriatric Medicine; Visit Provider Internal Medicine
DX: N17.9 Acute kidney failure, unspecified (principal); U07.1 COVID-19; J98.59 Other diseases of mediastinum, not elsewhere classified; I48.19 Other persistent atrial fibrillation; E11.9 Type 2 diabetes mellitus without complications; E86.0 Dehydration; K21.9 Gastro-esophageal reflux disease without esophagitis; E78.5 Hyperlipidemia, unspecified; Z86.73 Personal history of transient ischemic attack (TIA), and cerebral infarction without residual deficits; Z95.0 Presence of cardiac pacemaker; Z87.891 Personal history of nicotine dependence; Z79.01 Long term (current) use of anticoagulants; Z79.899 Other long term (current) drug therapy
CPT/HCPCS: 36415; 71045; 71250; 76770; 80048; 80053; 80076; 81001; 82728; 82784; 82947; 83036; 83605; 83615; 83735; 83930; 83935; 84145; 84155; 84156; 84165; 84300; 84484; 85025; 85027; 85610; 85730; 86140; 86334; 86769; 87040; 87635; 93005; 94667; 96360; 99232; 99285

== ENCOUNTER 2020-07-21 13:38 | Emergency (ER) | payer OTHER, SELFPAY ==
--- NOTE | 2020-07-21 16:04 | XR_ITS ---
EXAMINATION: XR ABDOMEN KUB: 2 VIEWS CLINICAL INDICATION: Constipation COMPARISON: CT dated 05/14/2020 FINDINGS: The bowel gas pattern is normal with no evidence of ileus or obstruction. Stool present throughout the transverse colon and to lesser extent the ascending and descending colon. Ingested tablets present throughout the colon. No unusual soft tissue calcifications are noted. The bones are unremarkable. XR/XR KUB IMPRESSION: Moderate constipation without evidence of obstruction.
[2020-07-21 16:05] VITALS: BP 146/70; PULSE 60; RESP 18; TEMP 36.5; O2SAT 97; BMI 26.9
--- NOTE | 2020-07-21 16:06 | ED_ITS ---
HPI - General Adult General Chief complaint: Abdominal Pain <LISA Tang - Last Filed: 07/21/20 16:08> Stated complaint: UNABLE TO VOID <LISA Tang - Last Filed: 07/21/20 16:08> Time Seen by Provider: 07/21/20 16:02 <LISA Tang - Last Filed: 07/21/20 16:08> Source: patient <LISA Navarro - Last Filed: 07/21/20 23:33> Mode of arrival: ambulatory <LISA Navarro - Last Filed: 07/21/20 23:33> Limitations: no limitations <LISA Navarro Last Filed: 07/21/20 23:33> History of Present Illness HPI narrative: 79 y/o male presenting with constipation for the last several days. He cannot recall when he had his last bowel movement.He was recently admitted (07/03-07/19) for COVID-19 and GOOD. He has not had a bowel movement since he was before he was discharged on 07/19. He reports mild generalized abdominal discomfort but denies abdominal pain. No fever, chills, nausea or vomiting. He admits to not drinking enough water throughout the day. He denies any continued respiratory complaints. <LISA Navarro - Last Filed: 07/21/20 23:33> Onset (ago): day(s) <LISA Navarro - Last Filed: 07/21/20 23:33> Location: abdomen <LISA Naavrro Last Filed: 07/21/20 23:33> Radiation: non-radiation <LISA Navarro - Last Filed: 07/21/20 23:33> Severity: mild and moderate <LISA Navarro Last Filed: 07/21/20 23:33> Severity scale (1-10): 5 <LISA Navarro Last Filed: 07/21/20 23:33> Quality: aching <LISA Navarro Last Filed: 07/21/20 23:33> Pain Consistency: intermittent <LISA Navarro Last Filed: 07/21/20 23:33> Relieving factors: none <LISA Navarro Last Filed: 07/21/20 23:33> Exacerbating factors: none <LISA Navarro Last Filed: 07/21/20 23:33> Associated symptoms: malaise <LISA Navarro Last Filed: 07/21/20 23:33> Treatments prior to arrival: none <LISA Navarro Last Filed: 07/21/20 23:33> Related Data Home medications: Home Medications Medication Instructions Recorded Confirmed Eliquis 5 mg PO BID 07/02/20 07/16/20 carvedilol 3.125 mg PO BID 07/02/20 07/16/20 glipizide 5 mg PO DAILY 07/02/20 07/16/20 losartan 50 mg PO DAILY 07/02/20 07/16/20 melatonin 5 mg PO BEDTIME 07/02/20 07/16/20 omeprazole 20 mg PO DAILY PRN 07/02/20 07/16/20 rosuvastatin 10 mg PO DAILY 07/02/20 07/16/20 torsemide 40 mg PO BID 07/02/20 07/16/20 Previous Rx's Medication Instructions Recorded bisacodyl [Dulcolax (bisacodyl)] 10 mg [place] DAILY PRN #12 ea 07/21/20 polyethylene glycol 3350 [Miralax] 17 g PO BID #119 g 07/21/20 <LISA Tang Last Filed: 07/21/20 16:08> Allergies/adverse reactions: Allergies Allergy/AdvReac Type Severity Reaction Status Date / Time No Known Allergies Allergy Unknown Unverified 03/05/20 15:58 NSAIDS due to CKD Allergy Unknown Uncoded 06/27/19 00:00 <LISA Tang Last Filed: 07/21/20 16:08> Review of Systems Review of Systems: Constitutional: No Fever, No Chills ENT/Mouth: No sore throat, No Rhinorrhea Cardiovascular: No Chest Pain, No SOB Respiratory: No Cough, No Sputum Gastrointestinal: No Nausea, No Vomiting, No Diarrhea, + abdominal Pain, No Hematochezia, No Melena, +constipation Genitourinary: No Dysuria, No Urinary Frequency, No Hematuria Musculoskeletal: No joint pain, No Myalgias Skin: No Skin Lesions, No rash Neuro: No Weakness, No Numbness, No Dizziness, No Headache Heme/Lymph: No Bruising, No Lymphadenopathy <LISA Navarro - Last Filed: 07/21/20 23:33> FOR[facility]LY [facility], [facility] Past Medical History Attestation statement: The following information was validated with the patient. <LISA Navarro - Last Filed: 07/21/20 23:33> Medical History: Medical History CVA (cerebral vascular accident) Diabetes mellitus GERD (gastroesophageal reflux disease) H/O: HTN (hypertension) Hyperlipidemia Pacemaker Persistent atrial fibrillation <LISA Tang - Last Filed: 07/21/20 16:08> Social History Social History: Social History Household Members: Family Housing: House Alcohol intake: never Smoking Status: Unknown if ever smoked Use of substances other than those prescribed or required for medical reasons: No Advance Directives: No Advance Directives Information Provided: Yes service: No Current occupational status: retired <LISA Tang - Last Filed: 07/21/20 16:08> Physical Exam Vital Signs: Vital Signs: Last Vital Signs Temp 98.9 F 07/21/20 22:33 Pulse 76 07/21/20 22:33 Resp 16 07/21/20 22:33 BP 118/56 L 07/21/20 22:33 Pulse Ox 98 07/21/20 22:33 Body Mass Index 26.9 <LISA Tang - Last Filed: 07/21/20 16:08> Vital Signs: Last Vital Signs Temp 98.9 F 07/21/20 22:33 Pulse 76 07/21/20 22:33 Resp 16 07/21/20 22:33 BP 118/56 L 07/21/20 22:33 Pulse Ox 98 07/21/20 22:33 Body Mass Index 26.9 Appearance: Alert. Oriented X3. No acute distress. Eyes: Pupils equal, round and reactive to light. ENT: Pharynx normal. Neck: Normal inspection. Neck supple. CVS: Normal heart rate and rhythm. Pulses normal. Respiratory: No respiratory distress. Breath sounds normal. Abdomen: Soft and nontender. +BS x4 Rectal: normal sphincter tone, soft brown stool in rectal vault. no bleeding, no tenderness. Skin: Skin warm and dry. Normal skin color. Normal skin turgor. No rashes. Extremities: No lower extremity edema. Neuro: Oriented X 3. Mild generalized weakness, non-focal. <LISA Navarro Last Filed: 07/21/20 23:33> Course Course Course Narrative: 79 yold male presents to the ED for constipation for 3 weeks. patient recently discharged from [facility] for acute kidney injury. Patient will have labs ordered and KUB. history, physical exam, and decision making will be done by ED provider. <LISA Tang - Last Filed: 07/21/20 16:08> 79 y/o male presenting with constipation and GOOD. Recent admission for COVID and GOOD. SCr on discharge 2 days ago 1.21, now 1.80. Scr peaked at 2.31 on admission. Suspect dehydration contributing to constipation and GOOD - ordered for 1L IVF. Exam reveals soft abdomen without tenderness. Lipase is 202, up from 122 prior. No epigastric pain, N/V, highly doubt acute pancreatitis. Disimpacted small/moderate amount of soft brown stool. Fleet enema ordered. KUB pending. Will reassess. <LISA Navaror - Last Filed: 07/21/20 23:33> Reevaluation(s) Reevaluation #1: KUB showing moderate stool burden. WBC 13 but no abdominal tenderness, fevers, distention. Doubt infectious process. He was able to pass a small amount of stool here. He states he is feeling better and would like to go home. He was counseled on dehydration, constipation and increasing oral hydration. It was recommended to f/u with his doctor for repeat blood work within a week. Rectal dulcolax given with instructions on bowel regimen for home. He expressed understanding and agrees with plan. Stable for discharge. <LISA Navarro - Last Filed: 07/21/20 23:33> Procedures Rectal Disimpaction Time out performed rectal disimpaction: No <LISA Navarro Last Filed: 07/21/20 23:33> Indication: fecal impaction <LISA Navarro Last Filed: 07/21/20 23:33> Procedural Sedation: No <LISA Navarro Last Filed: 07/21/20 23:33> Sedation/Analgesia: none <LISA Navarro Last Filed: 07/21/20 23:33> Technique: manual disimpaction with gloved finger <LISA Navarro Last Filed: 07/21/20 23:33> Result: significant stool output (small amount of soft brown stool was successfully removed) <LISA Navarro Last Filed: 07/21/20 23:33> Patient Tolerated Procedure: well <LISA Navarro Last Filed: 07/21/20 23:33> Complications: none <LISA Navarro Last Filed: 07/21/20 23:33> Medical Decision Making Lab Data Result diagrams: : 07/21/20 18:14 07/21/20 18:13 <LISA Tang Last Filed: 07/21/20 16:08> Labs: Lab Results 07/21/20 07/21/20 07/21/20 Range/Units 18:13 18:14 18:15 WBC 13.4 H (4.8-10.8) X10*3/uL RBC 3.24 L (4.60-5.80) X10*6/uL Hgb 10.1 L (14.0-18.0) g/dl Hct 29.4 L D (42-52) % MCV 90.7 (80-98) fL MCH 31.2 (27.0-33.0) pg MCHC 34.4 (31.0-36.0) g/dl RDW 14.3 (11.0-16.0) % Plt Count 115 L D (160-400) X10*3/uL MPV 10.6 (9.4-12.4) fL Immature Gran % (Auto) 0.6 H (0.0-0.4) % Neut % (Auto) 74.0 H (45-73) % Lymph % (Auto) 19.1 L (20-40) % Sherman % (Auto) 5.4 (2-11) % Eos % (Auto) 0.8 (0-4) % Baso % (Auto) 0.1 (0-2) % Lymph # (Auto) 2.6 (1.2-4.9) X10*3/uL Sherman # (Auto) 0.7 (0.1-1.2) X10*3/uL Eos # (Auto) 0.1 (0.0-0.4) X10*3/uL Baso # (Auto) 0.0 (0.0-0.2) X10*3/uL Abs Immat Gran (auto) 0.08 H (0.00-0.03) X10*3/uL Absolute Neuts (auto) 9.9 H (2.0-8.3) X10*3/uL Absolute Nucleated RBC 0.000 (0.0-0.012) X10*3/uL Nucleated RBC % (auto) 0.0 (0.0-0.2) /100WBC Sodium 135 (135-145) mmol/L Potassium 3.3 (3.3-5.1) mmol/L Chloride 97 (96-108) mmol/L Carbon Dioxide 28 (22-29) mmol/L Anion Gap 13 (12-20) BUN 32 H (9-16) mg/dL Creatinine 1.80 H (0.5-1.4) mg/dL Estim Creat Clear Calc 31.6 Estimated GFR 37 Random Glucose 266 H D (60-115) mg/dL Calcium 7.9 L (8.4-10.2) mg/dL Total Bilirubin 1.0 (0.0-1.0) mg/dL Direct Bilirubin 0.5 (0.0-0.5) mg/dL AST 26 (5-37) U/L ALT 22 (0-40) U/L Alkaline Phosphatase 85 D (39-117) U/L Total Protein 6.1 L (6.5-8.0) g/dL Albumin 3.3 L (3.5-5.0) g/dL Lipase 202 H (8-78) U/L Urine Color STRAW Urine Appearance CLEAR Urine pH 5.0 (5.0-8.0) Ur Specific [place] 1.020 (1.005-1.025) Urine Protein NEG (NEG-TRACE) MG/DL Urine Glucose (UA) NEG (NEG) MG/DL Urine Ketones NEG (NEG) MG/DL Urine Blood TRACE (NEG) Urine Nitrite NEG (NEG) Ur Leukocyte Esterase NEG (NEG) Urine RBC 1-4 (0) /HPF Urine WBC 1-4 (0-4) /HPF Ur Squamous Epith Cells 1+ /LPF Ur Renal Epithelial Cell TRACE /LPF Urine Bacteria 1+ /LPF <LISA Tang - Last Filed: 07/21/20 16:08> Lab Results 07/21/20 07/21/20 07/21/20 Range/Units 18:13 18:14 18:15 WBC 13.4 H (4.8-10.8) X10*3/uL RBC 3.24 L (4.60-5.80) X10*6/uL Hgb 10.1 L (14.0-18.0) g/dl Hct 29.4 L D (42-52) % MCV 90.7 (80-98) fL MCH 31.2 (27.0-33.0) pg MCHC 34.4 (31.0-36.0) g/dl RDW 14.3 (11.0-16.0) % Plt Count 115 L D (160-400) X10*3/uL MPV 10.6 (9.4-12.4) fL Immature Gran % (Auto) 0.6 H (0.0-0.4) % Neut % (Auto) 74.0 H (45-73) % Lymph % (Auto) 19.1 L (20-40) % Sherman % (Auto) 5.4 (2-11) % Eos % (Auto) 0.8 (0-4) % Baso % (Auto) 0.1 (0-2) % Lymph # (Auto) 2.6 (1.2-4.9) X10*3/uL Sherman # (Auto) 0.7 (0.1-1.2) X10*3/uL Eos # (Auto) 0.1 (0.0-0.4) X10*3/uL Baso # (Auto) 0.0 (0.0-0.2) X10*3/uL Abs Immat Gran (auto) 0.08 H (0.00-0.03) X10*3/uL Absolute Neuts (auto) 9.9 H (2.0-8.3) X10*3/uL Absolute Nucleated RBC 0.000 (0.0-0.012) X10*3/uL Nucleated RBC % (auto) 0.0 (0.0-0.2) /100WBC Sodium 135 (135-145) mmol/L Potassium 3.3 (3.3-5.1) mmol/L Chloride 97 (96-108) mmol/L Carbon Dioxide 28 (22-29) mmol/L Anion Gap 13 (12-20) BUN 32 H (9-16) mg/dL Creatinine 1.80 H (0.5-1.4) mg/dL Estim Creat Clear Calc 31.6 Estimated GFR 37 Random Glucose 266 H D (60-115) mg/dL Calcium 7.9 L (8.4-10.2) mg/dL Total Bilirubin 1.0 (0.0-1.0) mg/dL Direct Bilirubin 0.5 (0.0-0.5) mg/dL AST 26 (5-37) U/L ALT 22 (0-40) U/L Alkaline Phosphatase 85 D (39-117) U/L Total Protein 6.1 L (6.5-8.0) g/dL Albumin 3.3 L (3.5-5.0) g/dL Lipase 202 H (8-78) U/L Urine Color STRAW Urine Appearance CLEAR Urine pH 5.0 (5.0-8.0) Ur Specific [place] 1.020 (1.005-1.025) Urine Protein NEG (NEG-TRACE) MG/DL Urine Glucose (UA) NEG (NEG) MG/DL Urine Ketones NEG (NEG) MG/DL Urine Blood TRACE (NEG) Urine Nitrite NEG (NEG) Ur Leukocyte Esterase NEG (NEG) Urine RBC 1-4 (0) /HPF Urine WBC 1-4 (0-4) /HPF Ur Squamous Epith Cells 1+ /LPF Ur Renal Epithelial Cell TRACE /LPF Urine Bacteria 1+ /LPF <LISA Navarro - Last Filed: 07/21/20 23:33> Discharge Plan Discharge Clinical Impression: GOOD (acute kidney injury) Constipation Qualifiers: Constipation type: unspecified constipation type Qualified Code(s): K59.00 - Constipation, unspecified <LISA Tang - Last Filed: 07/21/20 16:08> Patient Disposition: Home, Self-Care <LISA Tang - Last Filed: 07/21/20 16:08> Instructions: Constipation (ED), Acute Kidney Injury (DC), High Fiber Diet (ED) <LISA Tang - Last Filed: 07/21/20 16:08> Additional Instructions: Your labs showed some dehydration - recommend increasing your water intake. Take the prescribed Miralax two times per day. Recommend over the counter Senna and Colace per package instructions to help with constipation. If your constipation persists you can try over the counter Magnesium Citrate. Follow up with your doctor this week. Recommend repeat lab work in 4-7 days to reassess your kidney function. If you have persistent constipation or develop worsening abdominal pain come back to the ER for further evalation. <LISA Tang - Last Filed: 07/21/20 16:08> Prescriptions: New polyethylene glycol 3350 [Miralax] 17 gram/dose powder 17 g PO BID Qty: 119 RF: 0 bisacodyl [Dulcolax (bisacodyl)] 10 mg suppository 10 mg [place] DAILY PRN (Reason: constipation) Qty: 12 RF: 0 No Action losartan 50 mg Tablet 50 mg PO DAILY RF: 0 Hold Instructions: Resume on 07/21/20. carvedilol 3.125 mg Tablet 3.125 mg PO BID RF: 0 omeprazole 20 mg Capsule,Delayed Release(Dr/Ec) 20 mg PO DAILY PRN (Reason: indegestion) RF: 0 rosuvastatin 10 mg Tablet 10 mg PO DAILY RF: 0 melatonin 5 mg Tablet 5 mg PO BEDTIME RF: 0 Eliquis 5 mg Tablet 5 mg PO BID RF: 0 torsemide 20 mg Tablet 40 mg PO BID RF: 0 glipizide 5 mg Tablet 5 mg PO DAILY RF: 0 <LISA Tang - Last Filed: 07/21/20 16:08>
[2020-07-21 18:02] VITALS: BP 109/49; PULSE 60; RESP 22; TEMP 36.9; O2SAT 99
[2020-07-21 18:24] LABS: MANUAL DIFF FLAG NO
[2020-07-21 18:26] LABS: Basophils Percent Auto 0.1 % (0-2); Eosinophils Absolute Auto 0.1 X10*3/uL (0.0-0.4); Eosinophils Percent Auto 0.8 % (0-4); Hematocrit 29.4 % (42-52); Hemoglobin 10.1 g/dl (14.0-18.0); Imm Gran Abs Auto 0.08 X10*3/uL (0.00-0.03); Imm Gran Pct Auto 0.6 % (0.0-0.4); Lymphocytes Absolute Auto 2.6 X10*3/uL (1.2-4.9); Lymphocytes Percent Auto 19.1 % (20-40); Mean Corpuscular HGB Conc 34.4 g/dl (31.0-36.0); Mean Corpuscular Hemoglobin 31.2 pg (27.0-33.0); Mean Corpuscular Volume 90.7 fL (80-98); Mean Platelet Volume 10.6 fL (9.4-12.4); Monocytes Absolute Auto 0.7 X10*3/uL (0.1-1.2); Monocytes Percent Auto 5.4 % (2-11); Neutrophils Absolute Auto 9.9 X10*3/uL (2.0-8.3); Platelet Count 115 X10*3/uL (160-400); Red Blood Count 3.24 X10*6/uL (4.60-5.80); Red Cell Distribution Width 14.3 % (11.0-16.0); White Blood Count 13.4 X10*3/uL (4.8-10.8)
[2020-07-21 18:27] LABS: Glucose Urine UA NEG (NEG); Leukocyte Esterase Urine NEG (NEG); Nitrite Urine NEG (NEG); Urine Blood TRACE (NEG); Urine Ketones NEG (NEG); Urine Protein NEG (NEG-TRACE)
[2020-07-21 18:29] LABS: Appearance Urine CLEAR; Color Urine STRAW
[2020-07-21 18:52] LABS: Bacteria Urine 1+ /LPF; Renal Epithelial Cells Urine TRACE /LPF; Squamous Epithelial Cell Urine 1+ /LPF
[2020-07-21 19:04] LABS: Alanine Aminotransferase 22 U/L (0-40); Albumin Level 3.3 g/dL (3.5-5.0); Alkaline Phosphatase 85 U/L (39-117); Anion Gap 13 (12-20); Aspartate Amino Transferase 26 U/L (5-37); Bilirubin Direct 0.5 mg/dL (0.0-0.5); Blood Urea Nitrogen 32 mg/dL (9-16); Calcium 7.9 mg/dL (8.4-10.2); Carbon Dioxide 28 mmol/L (22-29); Chloride 97 mmol/L (96-108); Creatinine Clr Calc Pharmacy 31.6; Estimated Glomerular Filt Rate 37; Glucose Random 266 mg/dL (60-115); Potassium 3.3 mmol/L (3.3-5.1); Sodium 135 mmol/L (135-145); Total Protein 6.1 g/dL (6.5-8.0)
[2020-07-21 19:14] LABS: Lipase 202 U/L (8-78)
[2020-07-21] MEDS: 0.9 % Sodium Chloride 1,000 ML 999 ML IVCONT (19:19)
[2020-07-21] MEDS: Potassium Chloride ER 20 MEQ TAB.ER.PRT PO (19:19)
[2020-07-21] MEDS: polyethylene glycoL 3350 17 GM POWD.PACK PO (19:19)
[2020-07-21] MEDS: Mineral OiL enema 133 ML ENEMA PR (19:19)
--- NOTE | 2020-07-21 20:13 | PC.NURSE ---
Pt denies need or urge for BM at this time.
[2020-07-21 20:25] VITALS: BP 111/56; PULSE 57; RESP 14; TEMP 36.8; O2SAT 99
[2020-07-21] MEDS: Milk of Magnesia 30 ML ORAL.SUSP PO (22:32)
[2020-07-21 22:33] VITALS: BP 118/56; PULSE 76; RESP 16; TEMP 37.2; O2SAT 98
[2020-07-21] MEDS: bisacodyL 10 MG SUPP.RECT PR (23:15)
== END 2020-07-21 23:42 | disposition home or self-care (01) ==
PROVIDERS: Physician Assistant; Emergency Provider Emergency Medicine; PCP Internal Medicine Geriatric Medicine
DX: K59.00 Constipation, unspecified (principal); N17.9 Acute kidney failure, unspecified; E86.0 Dehydration; R53.1 Weakness; E11.9 Type 2 diabetes mellitus without complications; I10 Essential (primary) hypertension; I48.91 Unspecified atrial fibrillation; Z95.0 Presence of cardiac pacemaker; Z86.16 Personal history of COVID-19; Z86.73 Personal history of transient ischemic attack (TIA), and cerebral infarction without residual deficits
CPT/HCPCS: 36415; 74018; 80053; 80076; 81001; 82248; 83690; 85025; 96360; 99284

== ENCOUNTER 2020-07-24 11:43 | Outpatient (REF) | payer OTHER, SELFPAY ==
[2020-07-24 13:34] LABS: MANUAL DIFF FLAG NO
[2020-07-24 13:49] LABS: Basophils Percent Auto 0.1 % (0-2); Eosinophils Absolute Auto 0.1 X10*3/uL (0.0-0.4); Eosinophils Percent Auto 1.5 % (0-4); Hematocrit 27.4 % (42-52); Imm Gran Abs Auto 0.06 X10*3/uL (0.00-0.03); Imm Gran Pct Auto 0.7 % (0.0-0.4); Lymphocytes Absolute Auto 2.2 X10*3/uL (1.2-4.9); Mean Corpuscular HGB Conc 32.8 g/dl (31.0-36.0); Mean Corpuscular Hemoglobin 30.5 pg (27.0-33.0); Mean Corpuscular Volume 92.9 fL (80-98); Mean Platelet Volume 10.6 fL (9.4-12.4); Monocytes Absolute Auto 0.5 X10*3/uL (0.1-1.2); Neutrophils Absolute Auto 5.7 X10*3/uL (2.0-8.3); Neutrophils Percent Auto 65.7 % (45-73); Platelet Count 128 X10*3/uL (160-400); Red Blood Count 2.95 X10*6/uL (4.60-5.80); Red Cell Distribution Width 15.1 % (11.0-16.0); White Blood Count 8.6 X10*3/uL (4.8-10.8)
[2020-07-24 14:10] LABS: Alanine Aminotransferase 23 U/L (0-40); Albumin Level 2.9 g/dL (3.5-5.0); Alkaline Phosphatase 81 U/L (39-117); Anion Gap 11 (12-20); Aspartate Amino Transferase 31 U/L (5-37); Bilirubin Total 0.6 mg/dL (0.0-1.0); Blood Urea Nitrogen 26 mg/dL (9-16); Calcium 7.8 mg/dL (8.4-10.2); Carbon Dioxide 29 mmol/L (22-29); Chloride 101 mmol/L (96-108); Estimated Glomerular Filt Rate 46; Glucose Fasting 190 mg/dL (60-99); Lactate Dehydrogenase 219 U/L (118-273); Sodium 137 mmol/L (135-145); Total Protein 5.6 g/dL (6.5-8.0)
[2020-07-25 17:08] LABS: HCG Tumor Marker <3 mIU/mL (<5)
[2020-07-29 11:32] LABS: Alpha Fetoprotein 0.8 ng/mL (<6.1)
== END 2020-07-24 11:44 | disposition home or self-care (01) ==
LOC: HO.LAB 11:43
PROVIDERS: Absent Provider Internal Medicine Geriatric Medicine; PCP Internal Medicine Geriatric Medicine; Visit Provider Internal Medicine
DX: I10 Essential (primary) hypertension (principal); J98.59 Other diseases of mediastinum, not elsewhere classified; N17.9 Acute kidney failure, unspecified
CPT/HCPCS: 36415; 80048; 80053; 82105; 83615; 84702; 85025

== ENCOUNTER 2020-08-18 14:51 | Outpatient (REF) | payer OTHER, SELFPAY ==
--- NOTE | ~2020-08-18 | US_ITS ---
EXAMINATION: US VENOUS ULTRASOUND WITH DOPPLER LOWER EXTREMITY, BILATERAL CLINICAL INFORMATION: Bilateral leg swelling. COMPARISON: None TECHNIQUE: Ultrasound of the deep veins is performed from the hip to the calf with compression sonography and color and pulse Doppler assessment. Spectral analysis with color-flow imaging is performed. FINDINGS: RIGHT: There is normal venous compression and respiratory variation and augmented flow. The visualized common femoral vein, superficial femoral vein, profunda femoral vein, popliteal vein, and the trifurcation region shows no evidence of deep venous thrombosis. There is no significant popliteal fossa cyst. LEFT: There is normal venous compression and respiratory variation and augmented flow. The visualized common femoral vein, superficial femoral vein, profunda femoral vein, popliteal vein, and the trifurcation region shows no evidence of deep venous thrombosis. There is no significant popliteal fossa cyst. If the patient's symptoms persist, followup ultrasound in 5 days 7 days might be of value to exclude proximal propagation from a non-visualized calf vein. US/US venous duplex LE BI IMPRESSION: No DVT demonstrated in bilateral lower extremity.
== END 2020-08-18 14:52 | disposition home or self-care (01) ==
LOC: HO.US 14:51
PROVIDERS: PCP Internal Medicine Geriatric Medicine; Visit Provider Emergency Medicine
DX: R60.0 Localized edema (principal); M79.89 Other specified soft tissue disorders
CPT/HCPCS: 93970

== ENCOUNTER → 2020-08-24 14:19 | Outpatient (BNVA) | payer OTHER, SELFPAY | PROVIDERS: PCP Internal Medicine Geriatric Medicine; Visit Provider Internal Medicine | DX: Z45.018 Encounter for adjustment and management of other part of cardiac pacemaker (principal); I25.10 Atherosclerotic heart disease of native coronary artery without angina pectoris; I48.19 Other persistent atrial fibrillation; I10 Essential (primary) hypertension; I63.9 Cerebral infarction, unspecified | CPT/HCPCS: 99212 ==

== ENCOUNTER → 2020-09-04 12:51 | Outpatient (REF) | payer MEDICARE, SELFPAY ==
--- NOTE | 2020-09-04 12:58 | CA_ITS ---
Transthoracic Echocardiogram Patient (Last, First, Middle): Dk Sepulveda, Gender: Male Date of : 1940 Age: 79 Procedure Date: 09/04/2020 Procedure Type: Transthoracic Echocardiogram Location: OP Height: 170.18 cm Weight: 76.66 kg BSA: 1.88 m2 Heart Rate: bpm BP: 149 / 71 mmHg Concrete Floor Installer: CORTEZ Referring MD: Aric Georges [employer] Lab Technician: Yung Mart MD Symptoms: AFIB,ASHD Study Quality: Good ECG Rhythm: Ventriculary paced rhythm Conclusions: - 1. Normal LV systolic function 2. Moderate biatrial enlargement 3. [id number] elevation of right ventricular systolic pressure with significantly elevated right atrial pressures 4. No gross pericardial effusion Findings Left Ventricle Normal left ventricular size, thickness, and systolic function. The visually estimated ejection fraction is between 60-65%. There is paradoxical septal motion consistent with a right ventricular pacemaker. Diastolic function is indeterminate on the basis of available data. Right Ventricle Normal right ventricular cavity size and systolic function. There is a pacemaker wire seen in the right ventricle. Atria The left atrium is moderately dilated. There is no evidence of interatrial shunt. The right atrium is moderately dilated. Aortic Valve There is mild calcification of the aortic valve. There is no aortic valve stenosis. There is no aortic valve regurgitation. Mitral Valve There is mild anterior and posterior mitral leaflet thickening. There is mild mitral annular calcification. There is trace mitral valve regurgitation. There is no mitral valve stenosis. Tricuspid Valve There is mild tricuspid valve regurgitation. Significantly elevated right atrial pressure. Mild to moderate pulmonary hypertension is present. Great Vessels All visible segments of the aorta are normal in size. The pulmonary artery was not well visualized. Venous The inferior vena cava is moderately dilated and does not collapse with inspiration. Pericardium/Pleural There is no evidence of pericardial effusion. Prior Study Comparison Changes noted compared to prior study dated: 06/24/2019. RV systolic pressure is further elevated with mostly increased RA pressure Measurements M-Mode Liner Measurements Normals - Women/Men AOV Cusps: 2.00 1.5-2.6 cm/m2 2D Linear Measurements IVSd: 0.82 0.6-0.9/0.6-1.0 cm LVIDd: 5.10 3.9-5.3/4.2-5.9 cm LVIDd Index: 2.71 2.4-3.2/2.2-3.1 cm/m2 LVIDs: 3.02 2.0-3.6 cm LVPWd: 1.01 0.7-1.1 cm Ao Root: 3.10 2.1-3.5 cm LA Diam: 4.00 2.7-3.8/3.0-4.0 cm LAIDs Index: 2.13 1.5-2.3 cm/m2 LV Mass: 208.77 67-162/88-224 g LV Mass Index: 111.05 43-95/49-115 g/m2 LVOT Diam: 2.00 3.0+(-)1.3 cm 2D Systolic Function EF 4C: 72.30 >55% EF 2C: 45.80 >55% EF BiP: 62.90 >55% Mitral Valve MV Pk E: 1.44 MV Decel Time: 229.00 PHT: 67.00 MVA PHT: 3.28 Decel Sauk: 6.28 Aortic Valve AoV Pk Jarad: 1.48 AoV Pk Grad: 9.00 LVOT LVOT Pk Jarad: 0.91 LVOT Mn Jarad: 0.65 LVOT VTI: 0.19 LVOT Pk Grad: 3.00 LVOT Mn Grad: 2.00 LVOT Diam: 2.00 LVOT Area: 3.14 Diastolic Function MV Pk E: 1.44 Tricuspid Valve TR Pk Jarad: 2.72 TR Pk Grad: 30.00 RA Press: 15.00 RVSP: 45.00 Great Vessels Aorta Ao Root-2D: 3.10 2.0-3.7 cm Ao Asc: 3.30 2.1-3.4 cm Ao Arch: 3.10 Pulmonary Valve PV Pk Jarad: 0.99 Peak PV Grad: 4.00 Updated in Other Vendor System with Status of Final Yung Mart MD electronically signed on 09/05/2020 2:49:14 PM with status of Final
== END ==
LOC: HO.CARD 12:51
PROVIDERS: Visit Provider Emergency Medicine
DX: I25.10 Atherosclerotic heart disease of native coronary artery without angina pectoris (principal); I48.91 Unspecified atrial fibrillation; M79.89 Other specified soft tissue disorders; Z95.0 Presence of cardiac pacemaker
CPT/HCPCS: 93306

== ENCOUNTER 2020-09-21 10:58 | Outpatient (REF) | payer MEDICARE, SELFPAY ==
[2020-09-21 11:52] LABS: MANUAL DIFF FLAG NO
[2020-09-21 11:59] LABS: Basophils Percent Auto 0.2 % (0-2); Eosinophils Absolute Auto 0.1 X10*3/uL (0.0-0.4); Eosinophils Percent Auto 1.4 % (0-4); Hematocrit 29.8 % (42-52); Hemoglobin 9.1 g/dl (14.0-18.0); Imm Gran Abs Auto 0.02 X10*3/uL (0.00-0.03); Imm Gran Pct Auto 0.5 % (0.0-0.4); Lymphocytes Absolute Auto 0.8 X10*3/uL (1.2-4.9); Lymphocytes Percent Auto 17.5 % (20-40); Mean Corpuscular HGB Conc 30.5 g/dl (31.0-36.0); Mean Corpuscular Hemoglobin 29.6 pg (27.0-33.0); Mean Corpuscular Volume 97.1 fL (80-98); Mean Platelet Volume 9.9 fL (9.4-12.4); Monocytes Absolute Auto 0.3 X10*3/uL (0.1-1.2); Monocytes Percent Auto 7.4 % (2-11); Neutrophils Absolute Auto 3.2 X10*3/uL (2.0-8.3); Platelet Count 144 X10*3/uL (160-400); Red Blood Count 3.07 X10*6/uL (4.60-5.80); Red Cell Distribution Width 14.9 % (11.0-16.0); White Blood Count 4.4 X10*3/uL (4.8-10.8)
[2020-09-21 12:37] LABS: Glucose Urine UA NEG (NEG); Leukocyte Esterase Urine NEG (NEG); Nitrite Urine NEG (NEG); PH 7.5 (5.0-8.0); Specific Gravity - Urine 1.015 (1.005-1.025); Urine Blood NEG (NEG); Urine Ketones NEG (NEG); Urine Protein NEG (NEG-TRACE)
[2020-09-21 12:38] LABS: Anion Gap 12 (12-20); Blood Urea Nitrogen 27 mg/dL (9-16); Calcium 9.1 mg/dL (8.4-10.2); Carbon Dioxide 34 mmol/L (22-29); Chloride 98 mmol/L (96-108); Estimated Glomerular Filt Rate 31; Iron 55 mcg/dL (45-160); Magnesium 2.2 mg/dL (1.6-2.6); Percent Iron Saturation 18 % (15-50); Phosphorus 3.6 mg/dL (2.7-4.5); Potassium 3.9 mmol/L (3.3-5.1); Sodium 140 mmol/L (135-145); Total Iron Binding Capacity 301 mcg/dL (228-428); Unsaturated Iron Binding 246 ug/dL
[2020-09-21 12:40] LABS: Appearance Urine CLEAR; Color Urine STRAW
[2020-09-21 12:45] LABS: Vitamin D 25-OH Total 14.1 ng/mL (>30)
[2020-09-21 13:05] LABS: Microalbum/Creatinine Ratio Ur 76.4 ug/mg cr; Total Protein Urine Random < 7 mg/dL (<12)
[2020-09-21 13:10] LABS: RBC Urine 0 /HPF (0); WBC Urine 0 /HPF (0-4)
[2020-09-21 13:18] LABS: Ferritin 132 ng/mL (20-250)
[2020-09-22 11:52] LABS: Calcium (PTHI) 9.2 mg/dL (8.6-10.3); PTHI 151 pg/mL (14-64)
[2020-09-22 21:02] LABS: Prot Elec - Albumin 3.7 g/dL (3.8-4.8); Prot Elec - Alpha1 0.3 g/dL (0.2-0.3); Prot Elec - Alpha2 0.7 g/dL (0.5-0.9); Prot Elec - Beta 1 0.4 g/dL (0.4-0.6); Prot Elec - Beta 2 0.3 g/dL (0.2-0.5); Prot Elec - Gamma 1.7 g/dL (0.8-1.7)
[2020-09-24 16:36] LABS: Kappa, Serum 397 mg/dL (176-443); Lambda, Serum 265 mg/dL (91-240)
== END 2020-09-21 10:59 | disposition home or self-care (01) ==
LOC: HO.LAB 10:58
PROVIDERS: PCP Internal Medicine Geriatric Medicine; Visit Provider Internal Medicine Nephrology
DX: E11.22 Type 2 diabetes mellitus with diabetic chronic kidney disease (principal); E11.29 Type 2 diabetes mellitus with other diabetic kidney complication; I12.9 Hypertensive chronic kidney disease with stage 1 through stage 4 chronic kidney disease, or unspecified chronic kidney disease; N18.31 Chronic kidney disease, stage 3a
CPT/HCPCS: 36415; 80051; 81001; 82043; 82306; 82310; 82565; 82728; 83540; 83735; 83883; 83970; 84100; 84155; 84156; 84165; 84520; 85025

== ENCOUNTER → 2020-09-25 09:41 | Outpatient (BNVA) | payer MEDICARE, SELFPAY | PROVIDERS: PCP Internal Medicine Geriatric Medicine; Visit Provider Surgery | DX: J98.59 Other diseases of mediastinum, not elsewhere classified (principal); I48.91 Unspecified atrial fibrillation; Z79.899 Other long term (current) drug therapy; Z79.84 Long term (current) use of oral hypoglycemic drugs; Z86.73 Personal history of transient ischemic attack (TIA), and cerebral infarction without residual deficits; Z95.0 Presence of cardiac pacemaker; Z79.01 Long term (current) use of anticoagulants; Z86.16 Personal history of COVID-19 | CPT/HCPCS: 99212 ==

== ENCOUNTER 2020-11-13 14:41 | Outpatient (REF) | payer MEDICARE, SELFPAY ==
[2020-11-13 16:05] LABS: Blood Urea Nitrogen 29 mg/dL (9-16); Estimated Glomerular Filt Rate 34
== END 2020-11-13 14:42 | disposition home or self-care (01) ==
LOC: HO.LAB 14:41
PROVIDERS: PCP Internal Medicine Geriatric Medicine; Visit Provider Surgery
DX: J98.59 Other diseases of mediastinum, not elsewhere classified (principal)
CPT/HCPCS: 36415; 82565; 84520

== ENCOUNTER 2020-11-17 08:16 | Outpatient (REF) | payer MEDICARE, SELFPAY | END 2020-11-17 08:17 | disposition home or self-care (01) | LOC: HO.CT 08:16 | PROVIDERS: Visit Provider Surgery | DX: Z13.89 Encounter for screening for other disorder (principal) ==

== ENCOUNTER 2020-11-27 08:39 | Outpatient (REF) | payer MEDICARE, SELFPAY ==
--- NOTE | ~2020-11-27 | CT_ITS ---
EXAMINATION: CT CHEST WITH CONTRAST CLINICAL INFORMATION: Follow-up mediastinal mass COMPARISON: Previous chest CT 07/16/2020 TECHNIQUE: Multidetector volumetric CT imaging of the chest was obtained after the administration of 65 mL of Omnipaque 350 intravenous contrast without immediate adverse reactions. Axial MIP volume rendering provided. Sagittal and coronal reformatted images were obtained. This CT examination was performed using dose optimization techniques as appropriate, variously including the following: *Automated exposure control *Adjustment of mA and/or kV according to patient size (this includes techniques or standardized protocols for targeted exams where dose is matched to indication/reason for exam; i.e. extremities or head) *Use of iterative reconstruction technique DLP: 170 mGy-cm FINDINGS: LUNGS: There are increased interstitial and and increased attenuation seen in the lungs. This appears improved compared to June 2020 exam and is likely the residual of a previous Covid infection.. There is chronic scarring or subsegmental atelectasis at the lung bases. MEDIASTINUM: There is a soft tissue mass in the mediastinum. This measures 2.9 x 3.0 cm in AP and transverse dimension and 5 cm in longitudinal dimension sagittal reconstructed image 47 and does not appear appreciably changed in size. There is an increasing now moderate sized pericardial effusion. The heart is enlarged. There is a left subclavian single chamber pacemaker. PLEURA: There is no pleural effusion. No pleural mass or thickening. AXILLA: There are small left axillary lymph nodes. These do not appear enlarged. Increased in size and number. Largest lymph node is a retropectoral lymph node measuring 1.3 cm. There are small right axillary lymph nodes that appear unchanged. UPPER ABDOMEN: There is a gallstone in the gallbladder. The spleen is not completely imaged but may be enlarged. OSSEOUS STRUCTURES: There are degenerative changes of the spine. CT/CT chest w con IMPRESSION: Stable mediastinal mass. Differential would again include an exophytic thyroid nodule, thymic mass, teratoma and enlarged lymph node. Increasing now moderate to large pericardial effusion. Enlarged heart and coronary artery calcification. Improving lung disease. Prominent spleen.
[2020-11-27] MEDS: iohexoL 350 MG/ML 100 ML INFUS..BTL IV (11:02)
== END 2020-11-27 08:40 | disposition home or self-care (01) ==
LOC: HO.MDS 08:39
PROVIDERS: PCP Internal Medicine Geriatric Medicine; Visit Provider Surgery
DX: Z01.810 Encounter for preprocedural cardiovascular examination (principal); J98.59 Other diseases of mediastinum, not elsewhere classified
CPT/HCPCS: 71260; 96360; Q9967

== ENCOUNTER → 2020-12-18 09:31 | Outpatient (BNVA) | payer MEDICARE, SELFPAY | PROVIDERS: PCP Internal Medicine Geriatric Medicine; Visit Provider Surgery | DX: J98.59 Other diseases of mediastinum, not elsewhere classified (principal); I31.3 Pericardial effusion (noninflammatory); I48.91 Unspecified atrial fibrillation; Z79.899 Other long term (current) drug therapy; Z86.73 Personal history of transient ischemic attack (TIA), and cerebral infarction without residual deficits; Z95.0 Presence of cardiac pacemaker; Z79.01 Long term (current) use of anticoagulants; Z86.16 Personal history of COVID-19 | CPT/HCPCS: 99212 ==

== ENCOUNTER → 2020-12-30 12:47 | Outpatient (REF) | payer MEDICARE, SELFPAY ==
--- NOTE | 2020-12-30 12:50 | CA_ITS ---
Transthoracic Echocardiogram Patient (Last, First, Middle): Dk Sepulveda, Gender: Male Date of : 1940 Age: 80 Procedure Date: 12/30/2020 Procedure Type: Transthoracic Echocardiogram Location: OP Height: 170.18 cm Weight: 79.38 kg BSA: 1.91 m2 Heart Rate: bpm BP: 132 / 75 mmHg Lead Presser: Bianka MD: Natalie Kinsey MD Restaurant District Manager: Yung Mart MD Symptoms: I31.3 - Pericardial effusion (noninflammatory) Study Quality: Fair ECG Rhythm: Ventriculary paced rhythm Conclusions: - At least moderate pericardial effusion with no clear Doppler evidence of cardiac tamponade but with evidence of IVC dilatation Findings Venous The inferior vena cava is mildly dilated and collapses less than 50% with inspiration. Pericardium/Pleural There is a moderate circumferential pericardial effusion. There are no definitive echocardiographic findings of tamponade physiology. Septal bounce is noted. More prominent around the right atrium Updated in Other Vendor System with Status of Final Yung Mart MD electronically signed on 12/30/2020 4:40:04 PM with status of Final
== END ==
LOC: HO.CARD 12:47
PROVIDERS: Visit Provider Surgery
DX: I31.3 Pericardial effusion (noninflammatory) (principal)
CPT/HCPCS: 93308

== ENCOUNTER → 2021-01-12 12:19 | Outpatient (BNVA) | payer MEDICARE, SELFPAY | PROVIDERS: PCP Internal Medicine Geriatric Medicine; Referring Provider Internal Medicine Geriatric Medicine; Visit Provider Internal Medicine | DX: I31.3 Pericardial effusion (noninflammatory) (principal); I25.10 Atherosclerotic heart disease of native coronary artery without angina pectoris; I48.19 Other persistent atrial fibrillation; I10 Essential (primary) hypertension; I63.9 Cerebral infarction, unspecified; Z95.0 Presence of cardiac pacemaker; S06.5X9A Traumatic subdural hemorrhage with loss of consciousness of unspecified duration, initial encounter | CPT/HCPCS: 99212 ==

== ENCOUNTER → 2021-03-01 09:31 | Outpatient (REF) | payer MEDICARE, SELFPAY ==
--- NOTE | 2021-03-01 09:40 | CA_ITS ---
Transthoracic Echocardiogram Patient (Last, First, Middle): Dk Sepulveda, Gender: Male Date of : 1940 Age: 80 Procedure Date: 03/01/2021 Procedure Type: Transthoracic Echocardiogram Location: OP Height: 170.18 cm Weight: 74.84 kg BSA: 1.86 m2 Heart Rate: bpm BP: 125 / 67 mmHg Research Agricultural Engineer: DSG Referring MD: Jon Stuart MD Symptoms: I31.3 - Pericardial effusion (noninflammatory) Study Quality: Fair ECG Rhythm: Sinus Conclusions: - The left ventricular systolic function is normal. The visually estimated ejection fraction is between 55-60%. - Small to moderate circumferential pericardial effusion noted. Findings Left Ventricle Normal left ventricular cavity size. The left ventricular systolic function is normal. The visually estimated ejection fraction is between 55-60%. Venous The inferior vena cava is normal in size and collapses less than 50% with inspiration. Pericardium/Pleural There are no definitive echocardiographic findings of tamponade physiology. Small to moderate circumferential pericardial effusion noted. Over the right atrium, appears rather moderate in size. Prior Study Comparison Changes noted compared to prior study dated: 12/30/2020. Pericardial effusion is slightly smaller in size. Measurements Tricuspid Valve RA Press: 8.00 Updated in Other Vendor System with Status of Final Jon Stuart MD electronically signed on 03/02/2021 4:07:03 PM with status of Final
== END ==
LOC: HO.CARD 09:31
PROVIDERS: Visit Provider Internal Medicine
DX: I31.3 Pericardial effusion (noninflammatory) (principal); I25.10 Atherosclerotic heart disease of native coronary artery without angina pectoris; I48.19 Other persistent atrial fibrillation; I10 Essential (primary) hypertension; I63.9 Cerebral infarction, unspecified; Z95.0 Presence of cardiac pacemaker
CPT/HCPCS: 93308; 99212

== ENCOUNTER 2021-03-18 07:53 | Outpatient (REF) | payer MEDICARE, SELFPAY ==
[2021-03-18 09:10] LABS: Hematocrit 32.2 % (42-52); Hemoglobin 10.6 g/dl (14.0-18.0); Mean Corpuscular HGB Conc 32.9 g/dl (31.0-36.0); Mean Corpuscular Hemoglobin 29.1 pg (27.0-33.0); Mean Corpuscular Volume 88.5 fL (80-98); Mean Platelet Volume 10.1 fL (9.4-12.4); Platelet Count 144 X10*3/uL (160-400); Red Blood Count 3.64 X10*6/uL (4.60-5.80); White Blood Count 4.9 X10*3/uL (4.8-10.8)
[2021-03-18 09:34] LABS: Albumin Level 4.3 g/dL (3.5-5.0); Anion Gap 16 (12-20); Carbon Dioxide 33 mmol/L (22-29); Chloride 97 mmol/L (96-108); Iron 112 mcg/dL (45-160); Magnesium 2.5 mg/dL (1.6-2.6); Percent Iron Saturation 34 % (15-50); Potassium 3.1 mmol/L (3.3-5.1); Sodium 143 mmol/L (135-145); Total Iron Binding Capacity 326 mcg/dL (228-428); Unsaturated Iron Binding 214 ug/dL
[2021-03-18 09:36] LABS: Blood Urea Nitrogen 59 mg/dL (9-16); Estimated Glomerular Filt Rate 24
[2021-03-18 09:55] LABS: Appearance Urine CLEAR; Color Urine YELLOW; Glucose Urine UA NEG (NEG); Leukocyte Esterase Urine NEG (NEG); Nitrite Urine NEG (NEG); Urine Blood TRACE (NEG); Urine Ketones NEG (NEG); Urine Protein TRACE MG/DL (NEG-TRACE)
[2021-03-18 10:00] LABS: Vitamin D 25-OH Total 43.4 ng/mL (>30)
[2021-03-18 10:25] LABS: Creatinine Urine 53.98 mg/dL; Microalbum/Creatinine Ratio Ur 35.1 ug/mg cr; Protein/Creatinine Ratio, Ur 0.19 (<0.2); Total Protein Urine Random 10 mg/dL (<12)
[2021-03-18 10:29] LABS: WBC Urine 0 /HPF (0-4)
[2021-03-18 10:31] LABS: Ferritin 250 ng/mL (20-250)
[2021-03-19 15:51] LABS: PTHI 122 pg/mL (14-64)
== END 2021-03-18 07:54 | disposition home or self-care (01) ==
LOC: HO.LAB 07:53
PROVIDERS: Surgery; PCP Internal Medicine Geriatric Medicine; Visit Provider Internal Medicine Nephrology
DX: I12.9 Hypertensive chronic kidney disease with stage 1 through stage 4 chronic kidney disease, or unspecified chronic kidney disease (principal); E11.22 Type 2 diabetes mellitus with diabetic chronic kidney disease; N18.32 Chronic kidney disease, stage 3b; E11.21 Type 2 diabetes mellitus with diabetic nephropathy; N25.0 Renal osteodystrophy
CPT/HCPCS: 36415; 80051; 81001; 82040; 82043; 82306; 82310; 82565; 82728; 83540; 83735; 83970; 84100; 84156; 84520; 85027; 87086

== ENCOUNTER 2021-03-24 14:02 | Outpatient (REF) | payer MEDICARE, SELFPAY ==
--- NOTE | ~2021-03-24 | CT_ITS ---
EXAMINATION: CT CHEST WITHOUT CONTRAST CLINICAL INFORMATION: Pericardial effusion COMPARISON: Previous chest CT November 2020 TECHNIQUE: Multidetector volumetric CT imaging of the chest was done. Axial MIP volume rendering provided. Sagittal and coronal reformatted images were obtained. This CT examination was performed using dose optimization techniques as appropriate, variously including the following: *Automated exposure control *Adjustment of mA and/or kV according to patient size (this includes techniques or standardized protocols for targeted exams where dose is matched to indication/reason for exam; i.e. extremities or head) *Use of iterative reconstruction technique DLP: 151 mGy-cm FINDINGS: LUNGS: The lungs are clear with no evidence of inflammation or nodules. MEDIASTINUM: There is interval decrease in retrosternal anterior mediastinal mass. This measures 1.5 x 2 cm in AP and transverse dimension compared to 3 x 3 cm on November 2020 exam and 2.7 cm in longitudinal dimension compared to 5 cm on previous exam. The heart is enlarged. There is coronary artery calcification. There is a left subclavian single chamber pacemaker. There is a small pericardial effusion. This appears decreased in size from November 2020 exam. There are small mediastinal lymph nodes that are stable. PLEURA: There is no pleural effusion. No pleural mass or thickening. AXILLA: There is bilateral axillary lymphadenopathy that appears unchanged. No chest wall mass is seen. UPPER ABDOMEN: The contour of the liver is slightly irregular questionable for mild cirrhosis. There are gallstones in the gallbladder. OSSEOUS STRUCTURES: There are degenerative changes of the spine. CT/CT chest wo con IMPRESSION: Interval decrease in size in the anterior mediastinal mass and pericardial effusion from November 2020 exam. Enlarged heart and coronary artery calcification. Stable bilateral axillary lymphadenopathy. Gallstone.
== END 2021-03-24 14:03 | disposition home or self-care (01) ==
LOC: HO.CT 14:02
PROVIDERS: Visit Provider Surgery
DX: I31.3 Pericardial effusion (noninflammatory) (principal); J98.59 Other diseases of mediastinum, not elsewhere classified
CPT/HCPCS: 71250

== ENCOUNTER → 2021-04-02 11:02 | Outpatient (BNVA) | payer MEDICARE, SELFPAY | PROVIDERS: PCP Internal Medicine Geriatric Medicine; Visit Provider Surgery | DX: J98.59 Other diseases of mediastinum, not elsewhere classified (principal); I31.3 Pericardial effusion (noninflammatory); Z79.899 Other long term (current) drug therapy; Z79.4 Long term (current) use of insulin; Z86.16 Personal history of COVID-19 | CPT/HCPCS: 99212 ==

== ENCOUNTER 2021-07-12 10:54 | Outpatient (REF) | payer MEDICARE, SELFPAY ==
[2021-07-12 11:22] LABS: MANUAL DIFF FLAG NO
[2021-07-12 11:47] LABS: Basophils Percent Auto 0.2 % (0-2); Eosinophils Absolute Auto 0.1 X10*3/uL (0.0-0.4); Eosinophils Percent Auto 1.8 % (0-4); Hematocrit 31.6 % (42.0-52.0); Hemoglobin 10.5 g/dl (14.0-18.0); Imm Gran Abs Auto 0.03 X10*3/uL (0.00-0.03); Imm Gran Pct Auto 0.6 % (0.0-0.4); Lymphocytes Absolute Auto 1.2 X10*3/uL (1.2-4.9); Lymphocytes Percent Auto 22.6 % (20-40); Mean Corpuscular HGB Conc 33.2 g/dl (31.0-36.0); Mean Corpuscular Hemoglobin 30.5 pg (27.0-33.0); Mean Corpuscular Volume 91.9 fL (80.0-98.0); Mean Platelet Volume 9.8 fL (9.4-12.4); Monocytes Absolute Auto 0.4 X10*3/uL (0.1-1.2); Monocytes Percent Auto 7.4 % (2-11); Neutrophils Absolute Auto 3.7 x10*3/uL (2.0-8.3); Neutrophils Percent Auto 67.4 % (45-73); Platelet Count 143 X10*3/uL (160-400); Red Blood Count 3.44 X10*6/uL (4.60-5.80); Red Cell Distribution Width 13.7 % (11.0-16.0); White Blood Count 5.4 X10*3/uL (4.8-10.8)
[2021-07-12 12:25] LABS: Anion Gap 13 (12-20); Blood Urea Nitrogen 54 mg/dL (9-16); Calcium 9.8 mg/dL (8.4-10.2); Carbon Dioxide 36 mmol/L (22-29); Chloride 96 mmol/L (96-108); Estimated Glomerular Filt Rate 24; Iron 81 mcg/dL (45-160); Percent Iron Saturation 23 % (15-50); Potassium 3.1 mmol/L (3.3-5.1); Sodium 142 mmol/L (135-145); Total Iron Binding Capacity 346 mcg/dL (228-428); Unsaturated Iron Binding 265 ug/dL
[2021-07-12 12:43] LABS: Creatinine Urine 72.41 mg/dL; Total Protein Urine Random 8 mg/dL (<12)
[2021-07-12 14:16] LABS: Appearance Urine CLEAR; Color Urine YELLOW; Glucose Urine UA NEG (NEG); Leukocyte Esterase Urine NEG (NEG); Nitrite Urine NEG (NEG); PH 6.5 (5.0-8.0); Urine Blood NEG (NEG); Urine Ketones NEG (NEG); Urine Protein NEG (NEG-TRACE)
== END 2021-07-12 10:55 | disposition home or self-care (01) ==
LOC: HO.LAB 10:54
PROVIDERS: PCP Internal Medicine Geriatric Medicine; Visit Provider Internal Medicine Nephrology
DX: E11.21 Type 2 diabetes mellitus with diabetic nephropathy (principal); I12.9 Hypertensive chronic kidney disease with stage 1 through stage 4 chronic kidney disease, or unspecified chronic kidney disease; N18.32 Chronic kidney disease, stage 3b; N25.0 Renal osteodystrophy
CPT/HCPCS: 36415; 80051; 81003; 82043; 82310; 82565; 83540; 84156; 84520; 85025

== ENCOUNTER → 2021-07-30 11:30 | Outpatient (REF) | payer MEDICARE, SELFPAY ==
--- NOTE | 2021-07-30 11:32 | CA_ITS ---
Transthoracic Echocardiogram Patient (Last, First, Middle): Dk Sepulveda, Gender: Male Date of : 1940 Age: 80 Procedure Date: 07/30/2021 Procedure Type: Transthoracic Echocardiogram Location: OP Height: 170.18 cm Weight: 72.58 kg BSA: 1.84 m2 Heart Rate: bpm BP: 140 / 72 mmHg Dialysis Technician: ALAN Referring MD: Jon Stuart MD Symptoms: I31.3 - Pericardial effusion (noninflammatory) Study Quality: Fair Conclusions: - Small pericardial effusion present. Findings Left Ventricle Normal left ventricular size and systolic function. The visually estimated ejection fraction is between 55-60%. There is no evidence of regional wall motion abnormalities. There is paradoxical septal motion consistent with a left bundle branch block. Right Ventricle Normal right ventricular cavity size and systolic function. Tricuspid Valve Moderately elevated right atrial pressure. Mild pulmonary hypertension is present. Venous The inferior vena cava is dilated and collapses greater than 50% with inspiration. Pericardium/Pleural There is a small pericardial effusion. There are no definitive echocardiographic findings of tamponade physiology. Prior Study Comparison Changes noted compared to prior study dated: 03/01/2021. Small pericardial effusion present. Measurements Tricuspid Valve TR Pk Jarad: 2.38 TR Pk Grad: 23.00 RA Press: 15.00 RVSP: 38.00 Updated in Other Vendor System with Status of Final Daniel Charles MD electronically signed on 08/01/2021 11:06:45 PM with status of Final
== END ==
LOC: HO.CARD 11:30
PROVIDERS: PCP Internal Medicine Geriatric Medicine; Visit Provider Internal Medicine
DX: I31.3 Pericardial effusion (noninflammatory) (principal)
CPT/HCPCS: 93308

== ENCOUNTER → 2021-08-11 12:28 | Outpatient (BNVA) | payer MEDICARE, SELFPAY | PROVIDERS: PCP Internal Medicine Geriatric Medicine; Referring Provider Internal Medicine Geriatric Medicine; Visit Provider Internal Medicine | DX: I31.3 Pericardial effusion (noninflammatory) (principal); I25.10 Atherosclerotic heart disease of native coronary artery without angina pectoris; I48.19 Other persistent atrial fibrillation; I10 Essential (primary) hypertension; I69.354 Hemiplegia and hemiparesis following cerebral infarction affecting left non-dominant side; S06.5X9D Traumatic subdural hemorrhage with loss of consciousness of unspecified duration, subsequent encounter; Z95.0 Presence of cardiac pacemaker | CPT/HCPCS: 93005; 99212 ==

== ENCOUNTER 2021-09-10 07:26 | Outpatient (REF) | payer MEDICARE, SELFPAY ==
--- NOTE | ~2021-09-10 | XR_ITS ---
EXAMINATION: KNEE X-RAY CLINICAL INFORMATION: Pain COMPARISON: None TECHNIQUE: Standing AP view of both knees and lateral and sunrise view of the right knee FINDINGS: Right: There may be mild varus angulation at the knee joint. Bone alignment is otherwise normal. No fracture or dislocation seen. There are small osteophytes at the patellofemoral joint. There is a small joint effusion. There is evidence of atherosclerotic disease. Standing AP view of the left knee is unremarkable. XR/XR knee standing BI IMPRESSION: Right knee: Mild degenerative changes and small joint effusion.
--- NOTE | ~2021-09-10 | XR_ITS ---
EXAMINATION: KNEE X-RAY CLINICAL INFORMATION: Pain COMPARISON: None TECHNIQUE: Standing AP view of both knees and lateral and sunrise view of the right knee FINDINGS: Right: There may be mild varus angulation at the knee joint. Bone alignment is otherwise normal. No fracture or dislocation seen. There are small osteophytes at the patellofemoral joint. There is a small joint effusion. There is evidence of atherosclerotic disease. Standing AP view of the left knee is unremarkable. XR/XR knee RT 2V IMPRESSION: Right knee: Mild degenerative changes and small joint effusion.
== END 2021-09-10 07:27 | disposition home or self-care (01) ==
LOC: HO.HOSX 07:26
PROVIDERS: Visit Provider Physician Assistant
DX: M17.11 Unilateral primary osteoarthritis, right knee (principal)
CPT/HCPCS: 73560; 73565; 99212

== ENCOUNTER 2021-10-18 08:31 | Outpatient (REF) | payer OTHER, SELFPAY ==
[2021-10-18 08:46] LABS: MANUAL DIFF FLAG NO
[2021-10-18 08:50] LABS: Basophils Percent Auto 0.2 % (0-2); Eosinophils Absolute Auto 0.1 X10*3/uL (0.0-0.4); Eosinophils Percent Auto 1.5 % (0-4); Hematocrit 29.2 % (42.0-52.0); Hemoglobin 9.9 g/dl (14.0-18.0); Imm Gran Abs Auto 0.03 X10*3/uL (0.00-0.03); Imm Gran Pct Auto 0.6 % (0.0-0.4); Lymphocytes Absolute Auto 1.2 X10*3/uL (1.2-4.9); Lymphocytes Percent Auto 22.1 % (20-40); Mean Corpuscular HGB Conc 33.9 g/dl (31.0-36.0); Mean Corpuscular Hemoglobin 30.7 pg (27.0-33.0); Mean Corpuscular Volume 90.7 fL (80.0-98.0); Monocytes Absolute Auto 0.5 X10*3/uL (0.1-1.2); Monocytes Percent Auto 10.2 % (2-11); Neutrophils Absolute Auto 3.4 x10*3/uL (2.0-8.3); Neutrophils Percent Auto 65.4 % (45-73); Red Blood Count 3.22 X10*6/uL (4.60-5.80); Red Cell Distribution Width 14.5 % (11.0-16.0); White Blood Count 5.2 X10*3/uL (4.8-10.8)
[2021-10-18 09:37] LABS: Anion Gap 16 (12-20); Blood Urea Nitrogen 53 mg/dL (9-16); Calcium 9.7 mg/dL (8.4-10.2); Carbon Dioxide 32 mmol/L (22-29); Chloride 96 mmol/L (96-108); Estimated Glomerular Filt Rate 22; Iron 70 mcg/dL (45-160); Percent Iron Saturation 21 % (15-50); Potassium 3.4 mmol/L (3.3-5.1); Sodium 141 mmol/L (135-145); Total Iron Binding Capacity 331 mcg/dL (228-428); Unsaturated Iron Binding 261 ug/dL
[2021-10-18 09:54] LABS: Appearance Urine CLEAR; Color Urine YELLOW; Glucose Urine UA 100 MG/DL (NEG); Leukocyte Esterase Urine NEG (NEG); Nitrite Urine NEG (NEG); Urine Blood TRACE (NEG); Urine Ketones NEG (NEG); Urine Protein NEG (NEG-TRACE)
[2021-10-18 10:16] LABS: Squamous Epithelial Cell Urine TRACE /LPF
[2021-10-18 10:17] LABS: WBC Urine 0-2 /HPF (0-4)
[2021-10-18 10:47] LABS: Microalbum/Creatinine Ratio Ur 37.4 ug/mg cr; Protein/Creatinine Ratio, Ur 0.17 (<0.2); Total Protein Urine Random 17 mg/dL (<12)
[2021-10-18 11:33] LABS: Platelet Count 99 X10*3/uL (160-400)
[2021-10-18 11:34] LABS: Mean Platelet Volume 9.3 fL (9.4-12.4)
== END 2021-10-18 08:32 | disposition home or self-care (01) ==
LOC: HO.LAB 08:31
PROVIDERS: PCP Internal Medicine Geriatric Medicine; Visit Provider Internal Medicine Nephrology
DX: I12.9 Hypertensive chronic kidney disease with stage 1 through stage 4 chronic kidney disease, or unspecified chronic kidney disease (principal); N18.32 Chronic kidney disease, stage 3b; E11.22 Type 2 diabetes mellitus with diabetic chronic kidney disease; E11.21 Type 2 diabetes mellitus with diabetic nephropathy; N25.0 Renal osteodystrophy
CPT/HCPCS: 36415; 80051; 81001; 82043; 82310; 82565; 83540; 84156; 84520; 85025

== ENCOUNTER 2021-10-19 13:05 | Outpatient (REF) | payer OTHER, SELFPAY ==
--- NOTE | ~2021-10-19 | CT_ITS ---
EXAMINATION: CT CHEST WITHOUT CONTRAST CLINICAL INFORMATION: Mediastinal mass COMPARISON: Previous chest CT most recent March 2021 TECHNIQUE: Multidetector volumetric CT imaging of the chest was done. Axial MIP volume rendering provided. Sagittal and coronal reformatted images were obtained. This CT examination was performed using dose optimization techniques as appropriate, variously including the following: *Automated exposure control *Adjustment of mA and/or kV according to patient size (this includes techniques or standardized protocols for targeted exams where dose is matched to indication/reason for exam; i.e. extremities or head) *Use of iterative reconstruction technique DLP: 155 mGy-cm FINDINGS: LUNGS: The lungs are clear with no evidence of inflammation or nodules. MEDIASTINUM: There is interval increase in size in the anterior mediastinal mass. This measures 2 x 2.5 cm compared to 1.5 x 2 cm March 2021 exam. There are small mediastinal lymph nodes. Evaluation for hilar adenopathy is limited due to IV contrast. The heart is enlarged. There is a small pericardial effusion. This is similar to March 2021 exam. There is coronary artery calcification. There is a left subclavian single chamber pacemaker. PLEURA: There is no pleural effusion. No pleural mass or thickening. AXILLA: There are small bilateral axillary lymph nodes. No enlarged axillary nodes or chest wall mass or UPPER ABDOMEN: There is a gallstone in the gallbladder. The liver may be cirrhotic.. There is question of a 2 cm low-attenuation lesion high in the lateral segment left lobe liver axial image 53. The spleen is not completely imaged but may be enlarged. OSSEOUS STRUCTURES: There are degenerative changes of the spine. CT/CT chest wo con IMPRESSION: Interval increase in size in the anterior mediastinal mass from March 2021. Enlarged heart. Small pericardial effusion similar to March 2021. Question cirrhotic liver and 2 cm low-attenuation lesion in the lateral segment. Follow-up liver imaging recommended. Fleischner guidelines were followed.
== END 2021-10-19 13:06 | disposition home or self-care (01) ==
LOC: HO.CT 13:05
PROVIDERS: PCP Internal Medicine Geriatric Medicine; Visit Provider Surgery
DX: J98.59 Other diseases of mediastinum, not elsewhere classified (principal)
CPT/HCPCS: 71250

== ENCOUNTER → 2021-10-29 10:25 | Outpatient (BNVA) | payer OTHER, SELFPAY | PROVIDERS: PCP Internal Medicine Geriatric Medicine; Visit Provider Surgery | DX: J98.59 Other diseases of mediastinum, not elsewhere classified (principal) | CPT/HCPCS: 99212 ==

== ENCOUNTER 2022-02-20 15:47 | Emergency (ER) | payer OTHER, SELFPAY ==
--- NOTE | ~2022-02-20 | XR_ITS ---
EXAMINATION: XR FOOT, RIGHT CLINICAL INFORMATION: Pain right second toe COMPARISON: None TECHNIQUE: AP, lateral, and oblique views of the right foot. FINDINGS: There is no fracture. No dislocation. There is joint narrowing and marginal bone spurs of the DIP joints of the second through fifth toes. Associated small subchondral degenerative lucencies of the distal and middle phalange of both the second and third toe. There is a spur at the posterior calcaneus. No soft tissue abnormality. XR/XR foot RT min 3V IMPRESSION: 1. No acute adenopathy. 2. Degenerative changes of the DIP joints of the second through fifth toes.
[2022-02-20 17:53] VITALS: BP 153/78; PULSE 84; RESP 16; TEMP 36.4; O2SAT 97; BMI 25.8
--- NOTE | 2022-02-20 21:44 | ED_ITS ---
HPI - Extremity Injury (Lower) General Chief Complaint: Extremity Injury, Lower Stated Complaint: Toe Swelling R Foot Time Seen by Provider: 02/20/22 21:26 Source: patient Mode of arrival: ambulatory Limitations: no limitations History of Present Illness HPI Narrative: 81-year-old male past medical history significant for atrial fibrillation, hypertension, history of CVA, diabetes presenting to the emergency department with complaints of right 2nd toe pain x3 days worsening. Patient reports that it looks better than it did yesterday however his right 2nd toe is red, hot, swollen and painful to the touch. He tells me this started suddenly, denies any trauma to the area he tells me he woke up 1 morning with severe right 2nd toe pain. He tells me this is never happened to him before. He has no history of gout or pseudogout. Denies fevers, chills, chest pain, shortness of breath, nausea, vomiting, abdominal pain, headache, dizziness and vision changes. MD complaint: other (Toe pain ) Related Data Home Medications Medication Instructions Recorded Confirmed carvedilol 3.125 mg tablet 3.125 mg PO BID 07/02/20 10/29/21 melatonin 5 mg tablet 5 mg PO BEDTIME 07/02/20 10/29/21 omeprazole 20 mg capsule,delayed 20 mg PO DAILY PRN indegestion 07/02/20 10/29/21 release rosuvastatin 10 mg tablet 10 mg PO DAILY 07/02/20 10/29/21 glipizide 5 mg tablet 5 mg PO BID 09/25/20 10/29/21 blood sugar diagnostic #10 ea 12/18/20 10/29/21 ergocalciferol (vitamin D2) 1,250 0 mcg PO 12/18/20 10/29/21 mcg (50,000 unit) capsule ferrous sulfate 325 mg (65 mg 325 mg PO DAILY 12/18/20 10/29/21 iron) tablet,delayed release gabapentin 100 mg capsule 0 mg PO 12/18/20 10/29/21 lactulose 10 gram/15 mL oral 15 ml PO DAILY PRN 12/18/20 10/29/21 solution lancets 28 gauge #100 ea 12/18/20 10/29/21 polyethylene glycol 3350 17 17 g PO BID PRN 12/18/20 10/29/21 gram/dose oral powder (Miralax) torsemide 20 mg tablet 60 mg PO BID 01/12/21 10/29/21 metolazone 2.5 mg tablet 2.5 mg PO 3XW 03/01/21 10/29/21 blood-glucose meter (FreeStyle #1 ea 04/02/21 10/29/21 Prospect Lite kit) insulin aspart U-100 100 unit/mL subcut 04/02/21 10/29/21 (3 mL) subcutaneous pen (Novolog Flexpen U-100 Insulin aspart) insulin glargine 100 unit/mL (3 30 unit subcut BEDTIME 04/02/21 10/29/21 mL) subcutaneous pen (Lantus Solostar U-100 Insulin) pen needle, diabetic 31 gauge x #1,200 ea 04/02/21 10/29/2111/01 (BD Ultra-Fine Short Pen Needle) finerenone 10 mg tablet (Kerendia) 10 mg PO DAILY 08/11/21 10/29/21 Previous Rx's Medication Instructions Recorded bisacodyl 10 mg rectal suppository 10 mg MN DAILY PRN constipation 07/21/20 (Dulcolax (bisacodyl)) #12 ea apixaban 5 mg tablet (Eliquis) 5 mg PO BID #60 tabs 10/11/21 acetaminophen 650 mg 650 mg PO Q12H PRN for pain #60 02/14/22 tablet,extended release tabs cephalexin 500 mg tablet 500 mg PO Q6H 10 days #40 tabs 02/20/22 prednisone 20 mg tablet 40 mg PO DAILY 5 days #10 tabs 02/20/22 Allergies Allergy/AdvReac Type Severity Reaction Status Date / Time No Known Allergies Allergy Unknown Verified 10/29/21 10:37 NSAIDS due to CKD Allergy Unknown n/a Uncoded 10/29/21 10:37 Review of Systems Review of Systems: Constitutional : No Weight loss, No Fever, No Chills, No Fatigue, No Malaise ENT/Mouth : No sore throat, No Rhinorrhea Eyes: No Eye Pain, No Swelling, No Redness Cardiovascular : No Chest Pain, No SOB, No Dyspnea on Exertion, No Orthopnea, No Edema, No Palpitations Respiratory : No Cough, No Sputum, No Wheezing Gastrointestinal : No Nausea, No Vomiting, No Diarrhea, No Constipation, No abdominal Pain, No Hematochezia, No Melena Genitourinary : No Dysuria, No Urinary Frequency, No Hematuria, Musculoskeletal : + joint pain, No Myalgias, + Joint Swelling Skin : No Skin Lesions, No rash Neuro : No Weakness, No Numbness, No Dizziness, No Headache Psych : No Anxiety/Panic, No Depression All other systems reviewed and are negative Yes all other systems are reviewed and are negative [facility] Past Medical History Attestation statement: The following information was validated with the patient. Source: old records reviewed and nursing notes reviewed Medical History Atherosclerotic cardiovascular disease Diabetes mellitus Essential hypertension GERD (gastroesophageal reflux disease) History of COVID-19 (~06/2020) History of CVA with residual deficit (~04/2005) Hyperlipidemia Normally functioning cardiac pacemaker present (~2006) Pacemaker (~2006) Persistent atrial fibrillation SDH (subdural hematoma) Surgical History History of craniotomy History of heart artery stent History of permanent cardiac pacemaker placement (~09/2006) Family History Family History Father No problems noted. Mother No problems noted. Social History Social History Household Members: Family Housing: House Do you presently have visiting nurse or other home services: Yes Alcohol intake: never Patient Tobacco Use Status: Never used Tobacco Advance Directives: No Advance Directives Information Provided: No service: No Current occupational status: retired Physical Exam Vital Signs: Vital Signs: Last Vital Signs Temp 97.6 F 02/20/22 17:53 Pulse 84 02/20/22 17:53 Resp 16 02/20/22 17:53 BP 153/78 H 02/20/22 17:53 Pulse Ox 97 02/20/22 17:53 O2 Del Method 02/20/22 17:53 BMI result Body Mass Index 25.8 Vital signs stable. Appearance: Alert.? Oriented X3.? No acute distress.? Head: Normocephalic, atraumatic, no step-offs or deformities Eyes: Pupils equal, round and reactive to light.? CVS: Normal heart rate and rhythm.? Pulses normal.? Respiratory: No respiratory distress.? Breath sounds normal.? Abdomen: Soft and nontender.? Skin: Skin warm and dry.? Normal skin color.? Normal skin turgor.? Extremities: No lower extremity edema.? No calf ttp. 5/5 strength to bilateral upper and lower extremities . 2+ dorsalis pedis, posterior tibialis and anterior tibialis pulses equal and bilateral. bilateral lower extremities warm. Patient ambulating with steady gait. Right 2nd toe erythematous, edematous and warm. No streaking or evidence of cellulitis. Normal sensation to bilateral lower extremities, 2+ patellar reflexes equal bilateral. Patient ambulating with steady gait normal coordination. Neuro: Oriented X 3.? No motor deficit.? No sensory deficit. CN 2-12 intact Course Reevaluation(s) Reevaluation #1: X-ray with no fractures or dislocations or acute findings, at this time patient will be discharged home with prednisone I advised him that prednisone causes sugars to increase therefore he may need to adjust his insulin. I will also send home on Keflex as the area is warm, to cover for cellulitis although less likely. Discussed this with patient and family member. Both agree with plan. Advised follow-up with PCP and return with new or worsening symptoms. Time: 22:41 MDM - Extremity Injury (Lower) MDM Narrative Medical decision making narrative: 81-year-old male presents with atraumatic right 2nd toe pain x3 days. Reports that that toe is red, hot, swollen. Started when he woke up 1 morning. Physical examination with pain to palpation of right 2nd toe with erythema, edema. Full range of motion to all toes. Normal pulses. Normal DTRs. Normal sensation. Neurovascularly intact. Negative Gem bilaterally. Patient ambulating with steady gait normal coordination. Neuro exam nonfocal. Regular rate and rhythm, lungs clear. Abdomen soft nontender nondistended likely gout or pseudogout. Unlikely arterial occlusion, DVT or cellulitis. Will obtain a x-ray to rule out fractures or dislocations although unlikely. Medical Records Attestation: I reviewed the patient's medical records. Lab Data Attestation: I reviewed the patient's lab results. Critical Care Time Critical Care Time Critical Care Time: No Discharge Plan Discharge Clinical Impression: Gout, Cellulitis Patient Disposition: Home, Self-Care Instructions: Gout (ED), Warm Compress or Soak (ED) Additional Instructions: Take your medications as prescribed. If you were prescribed antibiotics today, it is important that you take your medication to their entirety, do not skip any doses, do not finish them early. Follow-up with your primary care provider this week. Return to the emergency department with new or worsening symptoms. Such as fevers, chills, chest pain, shortness of breath, nausea, vomiting, dizziness, headache, vision changes, lethargy In case of emergency call 911 Prednisone as a steroid that has been sent to your pharmacy, it can cause your glucose levels to increase therefore please check your sugars and adjust medications as necessary. XR/XR foot RT min 3V IMPRESSION: ? 1. No acute adenopathy. 2. Degenerative changes of the DIP joints of the second through fifth toes. Prescriptions: New prednisone 20 mg tablet 40 mg PO DAILY 5 Days Qty: 10 0RF cephalexin 500 mg tablet 500 mg PO Q6H 10 Days Qty: 40 0RF No Action Eliquis 5 mg tablet 5 mg PO BID Qty: 60 4RF acetaminophen 650 mg tablet extended release 650 mg PO Q12H PRN (Reason: for pain) Qty: 60 0RF carvedilol 3.125 mg Tablet 3.125 mg PO BID omeprazole 20 mg Capsule,Delayed Release(Dr/Ec) 20 mg PO DAILY PRN (Reason: indegestion) rosuvastatin 10 mg Tablet 10 mg PO DAILY melatonin 5 mg Tablet 5 mg PO BEDTIME glipizide 5 mg tablet 5 mg PO BID torsemide 20 mg tablet 60 mg PO BID bisacodyl [Dulcolax (bisacodyl)] 10 mg suppository 10 mg MN DAILY PRN (Reason: constipation) Qty: 12 0RF metolazone 2.5 mg tablet 2.5 mg PO 3XW polyethylene glycol 3350 [Miralax] 17 gram/dose powder 17 g PO BID PRN gabapentin 100 mg capsule 0 mg PO (DME) FreeStyle Lite Strips Strip See Rx Instructions Not Applicable BID Qty: 10 Rx Instructions: As directed ergocalciferol (vitamin D2) 1,250 mcg (50,000 unit) capsule 0 mcg PO ferrous sulfate 325 mg (65 mg iron) tablet,delayed release (DR/EC) 325 mg PO DAILY (DME) lancets 28 gauge misc See Rx Instructions topical BID Qty: 100 Rx Instructions: As directed lactulose 10 gram/15 mL solution 15 ml PO DAILY PRN (DME) blood-glucose meter [FreeStyle Prospect Lite] Kit See Rx Instructions .ROUTE .MEDSUPPLY Qty: 1 Rx Instructions: As directed insulin aspart U-100 [Novolog Flexpen U-100 Insulin] 100 unit/mL (3 mL) insulin pen subcut Lantus Solostar U-100 Insulin 100 unit/mL (3 mL) insulin pen 30 unit subcut BEDTIME (DME) pen needle, diabetic [BD Ultra-Fine Short Pen Needle] 31 gauge x 5/16 needle See Rx Instructions subcut DAILY Qty: 1200 Rx Instructions: As directed Kerendia 10 mg tablet 10 mg PO DAILY Referrals: Name,MD Juan M [Primary Care Provider] - 2 days Stand Alone Forms: Work/School Release
== END 2022-02-20 23:16 | disposition home or self-care (01) ==
PROVIDERS: Emergency Provider Internal Medicine; PCP Internal Medicine Geriatric Medicine
DX: M10.071 Idiopathic gout, right ankle and foot (principal); M10.072 Idiopathic gout, left ankle and foot; Z79.899 Other long term (current) drug therapy
CPT/HCPCS: 73630; 99282; 99283

== ENCOUNTER → 2022-02-28 14:24 | Outpatient (BNVA) | payer OTHER, SELFPAY | PROVIDERS: PCP Internal Medicine Geriatric Medicine; Referring Provider Internal Medicine Geriatric Medicine; Visit Provider Internal Medicine | DX: Z45.018 Encounter for adjustment and management of other part of cardiac pacemaker (principal); I25.10 Atherosclerotic heart disease of native coronary artery without angina pectoris; I48.19 Other persistent atrial fibrillation; I31.3 Pericardial effusion (noninflammatory); I10 Essential (primary) hypertension; I63.9 Cerebral infarction, unspecified; S06.5X9D Traumatic subdural hemorrhage with loss of consciousness of unspecified duration, subsequent encounter | CPT/HCPCS: 99212 ==

== ENCOUNTER 2022-04-18 08:25 | Outpatient (REF) | payer OTHER, SELFPAY ==
[2022-04-18 08:46] LABS: MANUAL DIFF FLAG NO
[2022-04-18 09:19] LABS: Basophils Percent Auto 0.2 % (0-2); Eosinophils Absolute Auto 0.1 X10*3/uL (0.0-0.4); Eosinophils Percent Auto 1.8 % (0-4); Hematocrit 30.4 % (42.0-52.0); Hemoglobin 9.7 g/dl (14.0-18.0); Imm Gran Abs Auto 0.02 X10*3/uL (0.00-0.03); Imm Gran Pct Auto 0.5 % (0.0-0.4); Lymphocytes Absolute Auto 0.9 X10*3/uL (1.2-4.9); Lymphocytes Percent Auto 20.5 % (20-40); Mean Corpuscular HGB Conc 31.9 g/dl (31.0-36.0); Mean Corpuscular Volume 90.7 fL (80.0-98.0); Mean Platelet Volume 10.1 fL (9.4-12.4); Monocytes Absolute Auto 0.5 X10*3/uL (0.1-1.2); Monocytes Percent Auto 10.3 % (2-11); Neutrophils Absolute Auto 2.9 x10*3/uL (2.0-8.3); Neutrophils Percent Auto 66.7 % (45-73); Platelet Count 109 X10*3/uL (160-400); Red Blood Count 3.35 X10*6/uL (4.60-5.80); Red Cell Distribution Width 15.9 % (11.0-16.0); White Blood Count 4.4 X10*3/uL (4.8-10.8)
[2022-04-18 09:22] LABS: Appearance Urine Cloudy; Color Urine Yellow; Glucose Urine UA 100 mg/dL (Negative); Leukocyte Esterase Urine Negative (Negative); Nitrite Urine Negative (Negative); PH 7.5 (5.0-9.0); Specific Gravity - Urine 1.015 (1.005-1.025); Urine Blood Negative (Negative); Urine Ketones Negative (Negative); Urine Protein Trace mg/dL (Neg-Trace)
[2022-04-18 09:28] LABS: Bacteria Urine None Seen (None Seen); Hyaline Casts Urine 0-2 /LPF (0-2); RBC Urine 0-2 /HPF (0-2); Squamous Epithelial Cell Urine 0-2 /HPF (0-2); WBC Urine 0-5 /HPF (0-5)
[2022-04-18 09:51] LABS: Creatinine Urine 93.94 mg/dL; Microalbum/Creatinine Ratio Ur 27.6 ug/mg cr; Protein/Creatinine Ratio, Ur 0.18 (<0.2); Total Protein Urine Random 17 mg/dL (<12)
[2022-04-18 09:59] LABS: Albumin Level 4.2 g/dL (3.5-5.0); Anion Gap 16 (12-20); Blood Urea Nitrogen 40 mg/dL (9-16); Calcium 9.5 mg/dL (8.4-10.2); Carbon Dioxide 35 mmol/L (22-29); Chloride 96 mmol/L (96-108); Estimated Glomerular Filt Rate 27; Iron 73 mcg/dL (45-160); Magnesium 2.3 mg/dL (1.6-2.6); Percent Iron Saturation 22 % (15-50); Phosphorus 2.8 mg/dL (2.7-4.5); Potassium 3.4 mmol/L (3.3-5.1); Sodium 144 mmol/L (135-145); Total Iron Binding Capacity 334 mcg/dL (228-428); Unsaturated Iron Binding 261 ug/dL
[2022-04-18 10:22] LABS: Ferritin 132 ng/mL (20-250); Vitamin D 25-OH Total 49.5 ng/mL (>30)
[2022-04-19 11:42] LABS: Calcium (PTHI) 9.4 mg/dL (8.6-10.3); PTHI 182 pg/mL (16-77)
== END 2022-04-18 08:26 | disposition home or self-care (01) ==
LOC: HO.LAB 08:25
PROVIDERS: PCP Internal Medicine Geriatric Medicine; Visit Provider Internal Medicine Nephrology
DX: I12.9 Hypertensive chronic kidney disease with stage 1 through stage 4 chronic kidney disease, or unspecified chronic kidney disease (principal); N18.4 Chronic kidney disease, stage 4 (severe); E11.22 Type 2 diabetes mellitus with diabetic chronic kidney disease; N25.0 Renal osteodystrophy
CPT/HCPCS: 36415; 80051; 81001; 82040; 82043; 82306; 82310; 82565; 82728; 83540; 83735; 83970; 84100; 84156; 84520; 85025; 87086

== ENCOUNTER 2022-04-21 02:49 | Emergency (ER) | payer OTHER, SELFPAY ==
--- NOTE | ~2022-04-21 | XR_ITS ---
EXAMINATION: XR CHEST CLINICAL INFORMATION: Weakness COMPARISON: 10/19/2021 TECHNIQUE: Frontal view of the chest was obtained. FINDINGS: Left-sided pacemaker lead tip overlies the right ventricle. Lung volumes are symmetric. No focal consolidation is seen. No evidence of pneumothorax, pleural effusion, or pulmonary edema. Cardiac silhouette remains enlarged though may be slightly more prominent than on 10/19/2021. Previously identified anterior mediastinal mass is not adequately assessed radiographically. No acute osseous findings are seen. XR/XR chest 1V IMPRESSION: No acute pulmonary findings. Enlarged cardiac silhouette, which could reflect cardiomegaly and/or pericardial effusion.
[2022-04-21 03:15] VITALS: BP 168/84; PULSE 72; O2SAT 98
--- NOTE | 2022-04-21 03:18 | ECG_ITS ---
Test Reason : WEAKNESS Blood Pressure : / mmHG Vent. Rate : 061 BPM Atrial Rate : 049 BPM P-R Int : 000 ms QRS Dur : 198 ms QT Int : 510 ms P-R-T Axes : 000 -78 085 degrees QTc Int : 513 ms Ventricular-paced rhythm Abnormal ECG When compared with ECG of 16-JUL-2020 20:13, No significant change was found Referred By: Generic ED Physician Electronically Signed By:JUAN MCGILL MD
[2022-04-21 03:27] VITALS: BP 122/62; PULSE 70; RESP 18; TEMP 36.7; O2SAT 100; BMI 25.8
--- NOTE | 2022-04-21 04:46 | ED.WEAKNESS ---
HPI - Weakness General Chief complaint: Weakness Stated complaint: weakness Time Seen by Provider: 04/21/22 04:45 Source: patient Mode of arrival: EMS Limitations: no limitations History of Present Illness HPI Narrative: 81 yo male with PPM, SDH, arthritis, CAD, PAF, GERD, DM, CKD, CHF here with c/o waking up in the middle of the night and noting that this BP has been high x 2 nights - he can't sleep so he wakes up and checks it and its 180/100 he has no symptoms. No CP/headaches. no change in medications no new OTC medications. he has no complaints now. MD Complaint: generalized weakness (HTN he is not weak) Onset (ago): day(s) (2) Duration: intermittent Location: other Migration: none Severity: mild Relieving factors: none Exacerbating factors: other (states it goes up at night) Context: other (denies triggering event) Associated symptoms: denies other symptoms Related Data Home Medications Medication Instructions Recorded Confirmed carvedilol 3.125 mg tablet 3.125 mg PO BID 07/02/20 02/28/22 melatonin 5 mg tablet 5 mg PO BEDTIME 07/02/20 02/28/22 omeprazole 20 mg capsule,delayed 20 mg PO DAILY PRN indegestion 07/02/20 02/28/22 release rosuvastatin 10 mg tablet 10 mg PO DAILY 07/02/20 02/28/22 glipizide 5 mg tablet 5 mg PO BID 09/25/20 02/28/22 blood sugar diagnostic #10 ea 12/18/20 02/28/22 ergocalciferol (vitamin D2) 1,250 0 mcg PO 12/18/20 02/28/22 mcg (50,000 unit) capsule ferrous sulfate 325 mg (65 mg 325 mg PO DAILY 12/18/20 02/28/22 iron) tablet,delayed release gabapentin 100 mg capsule 0 mg PO 12/18/20 02/28/22 lactulose 10 gram/15 mL oral 15 ml PO DAILY PRN 12/18/20 02/28/22 solution lancets 28 gauge #100 ea 12/18/20 02/28/22 polyethylene glycol 3350 17 17 g PO BID PRN 12/18/20 02/28/22 gram/dose oral powder (Miralax) torsemide 20 mg tablet 60 mg PO BID 01/12/21 02/28/22 metolazone 2.5 mg tablet 2.5 mg PO 3XW 03/01/21 02/28/22 blood-glucose meter (FreeStyle #1 ea 04/02/21 02/28/22 [place] Lite kit) insulin aspart U-100 100 unit/mL subcut 04/02/21 02/28/22 (3 mL) subcutaneous pen (Novolog Flexpen U-100 Insulin aspart) insulin glargine 100 unit/mL (3 30 unit subcut BEDTIME 04/02/21 02/28/22 mL) subcutaneous pen (Lantus Solostar U-100 Insulin) pen needle, diabetic 31 gauge x #1,200 ea 04/02/21 02/28/22/16 (BD Ultra-Fine Short Pen Needle) finerenone 10 mg tablet (Kerendia) 10 mg PO DAILY 08/11/21 02/28/22 Previous Rx's Medication Instructions Recorded bisacodyl 10 mg rectal suppository 10 mg [place] DAILY PRN constipation 07/21/20 (Dulcolax (bisacodyl)) #12 ea acetaminophen 650 mg 650 mg PO Q12H PRN for pain #60 02/14/22 tablet,extended release tabs cephalexin 500 mg tablet 500 mg PO Q6H 10 days #40 tabs 02/20/22 apixaban 2.5 mg tablet (Eliquis) 2.5 mg PO BID 90 days #180 tabs 02/28/22 Allergies Allergy/AdvReac Type Severity Reaction Status Date / Time No Known Allergies Allergy Unknown Verified 02/28/22 14:57 NSAIDS due to CKD Allergy Unknown n/a Uncoded 02/28/22 14:57 Review of Systems Review of Systems: Constitutional : No Fever, No Chills ENT/Mouth : pos sore throat, No Rhinorrhea Eyes: No Eye Pain, No Swelling, No Redness Cardiovascular : No Chest Pain, No SOB Respiratory : No Cough, No Sputum, No Wheezing Gastrointestinal : No Nausea, No Vomiting, No Diarrhea, No abdominal Pain Genitourinary : No Dysuria, No Urinary Frequency, No Hematuria, Musculoskeletal : No joint pain, No Myalgias, No Joint Swelling Skin : No Skin Lesions, No rash Neuro : No Weakness, No Numbness, No Dizziness, No Headache Psych : No Anxiety/Panic, No Depression All other systems reviewed and are negative [facility] Past Medical History Attestation statement: The following information was validated with the patient. Medical History Atherosclerotic cardiovascular disease Diabetes mellitus Essential hypertension GERD (gastroesophageal reflux disease) History of COVID-19 (~06/2020) History of CVA with residual deficit (~04/2005) Hyperlipidemia Normally functioning cardiac pacemaker present (~2006) Pacemaker (~2006) Persistent atrial fibrillation SDH (subdural hematoma) Surgical History History of craniotomy History of heart artery stent History of permanent cardiac pacemaker placement (~09/2006) Family History Family History Father No problems noted. Mother No problems noted. Social History Social History Household Members: Family Housing: House Do you presently have visiting nurse or other home services: Yes Alcohol intake: never Patient Tobacco Use Status: Never used Tobacco Advance Directives: No service: No Current occupational status: retired Physical Exam Vital Signs: Vital Signs: Last Vital Signs Temp 98.1 F 04/21/22 03:27 Pulse 70 04/21/22 03:27 Resp 18 04/21/22 03:27 BP 122/62 04/21/22 03:27 Pulse Ox 100 04/21/22 03:27 O2 Del Method 04/21/22 03:27 BMI result Body Mass Index 25.8 Appearance: Alert. Oriented X3. No acute distress. Eyes: Pupils equal, round and reactive to light. ENT: Pharynx normal. Neck: Normal inspection. Neck supple. CVS: Normal heart rate and rhythm. Pulses normal. Respiratory: No respiratory distress. Breath sounds normal. Abdomen: Soft and nontender. Skin: Skin warm and dry. pale skin color. Normal skin turgor. Extremities: trace pitting edema of ankle bilaterally. No calf ttp Neuro: Oriented X 3. No motor deficit. No sensory deficit. Course Course Course Narrative: laying flat 1 pillow no distress no complaints BP 125/61 stable for DC troponin not checked as he has no c/o of chest pain, shortness of breath or weakness his main complaint was having BP of 180 in the middle of the night without symptoms MDM - Weakness MDM Narrative Medical decision making narrative: 81 yo male with PPM, SDH, arthritis, CAD, PAF, GERD, DM, CKD, CHF here with c/o noted BP up in the middle of the night with no systems over the last two days. He has no complaints now. Will obtain CXR, graham Tolbert. His BP has been normal during the night here and he is only asking for CM to help with VNA. At this time if CXR negative he can be DC home given BP trend has been at his baseline for him while in ED. He is normally 120s per his report and he is asymptomatic. Lab Data Result diagrams: 04/21/22 04:47 04/21/22 04:47 Labs: Lab Results 04/21/22 04/21/22 04/21/22 Range/Units 04:47 04:47 04:47 WBC 5.3 (4.8-10.8) X10*3/uL RBC 3.41 L (4.60-5.80) X10*6/uL Hgb 9.9 L (14.0-18.0) g/dl Hct 30.5 L (42.0-52.0) % MCV 89.4 (80.0-98.0) fL MCH 29.0 (27.0-33.0) pg MCHC 32.5 (31.0-36.0) g/dl RDW 15.9 (11.0-16.0) % Plt Count 106 L (160-400) X10*3/uL MPV 9.6 (9.4-12.4) fL Immature Gran % (Auto) 0.4 (0.0-0.4) % Neut % (Auto) 69.2 (45-73) % Lymph % (Auto) 16.9 L (20-40) % [place] % (Auto) 11.0 (2-11) % Eos % (Auto) 2.1 (0-4) % Baso % (Auto) 0.4 (0-2) % Lymph # (Auto) 0.9 L (1.2-4.9) X10*3/uL [place] # (Auto) 0.6 (0.1-1.2) X10*3/uL Eos # (Auto) 0.1 (0.0-0.4) X10*3/uL Baso # (Auto) 0.0 (0.0-0.2) X10*3/uL Abs Immat Gran (auto) 0.02 (0.00-0.03) X10*3/uL Absolute Neuts (auto) 3.7 (2.0-8.3) x10*3/uL Absolute Nucleated RBC 0.000 (0.0-0.012) X10*3/uL Nucleated RBC % (auto) 0.0 (0.0-0.2) /100WBC Sodium 142 (135-145) mmol/L Potassium 3.1 L (3.3-5.1) mmol/L Chloride 97 (96-108) mmol/L Carbon Dioxide 31 H (22-29) mmol/L Anion Gap 17 (12-20) BUN 40 H (9-16) mg/dL Creatinine 2.23 H (0.5-1.4) mg/dL Estim Creat Clear Calc 24.7 Estimated GFR 28 Random Glucose 194 H (60-115) mg/dL Calcium 9.6 (8.4-10.2) mg/dL COVID-19 (JOÃO) Negative (Negative) COVID-19 Clin Com See Note ECG Data Attestation: I personally reviewed and interpreted this ECG as follows: ECG interpretation date: 04/21/22 ECG interpretation time: 06:01 Interpretation: Rate: 61 Rhythm: v paced [place]: left Normal QRS complex. ST T wave : no DORY, nonspecific inverted t waves in aVL qTC: normal prior studies: no change from priors The study has been interpreted contemporaneously by me. . Procedures Procedure Narrative Procedure Narrative: bedside ECHO - parasternal, apical and subxiphoid in subxiphoid view there is a small pericardial effusion apically no signs of tamponade Discharge Plan Discharge Clinical Impression: Acute hypokalemia Chronic kidney disease Qualifiers: Chronic kidney disease stage: unspecified stage Qualified Code(s): N18.9 - Chronic kidney disease, unspecified Patient Disposition: Home, Self-Care Instructions: Chronic Kidney Disease (ED), Hypokalemia (ED) Additional Instructions: return to ED for any worsening symptoms or concerns blood pressure 120/60s on repeat checks during your stay in ED see your primary care doctor next week have someone else use your blood pressure cuff at home to make sure it is working correctly please see your novelty candy maker next week Prescriptions: No Action acetaminophen 650 mg tablet extended release 650 mg PO Q12H PRN (Reason: for pain) Qty: 60 0RF carvedilol 3.125 mg Tablet 3.125 mg PO BID omeprazole 20 mg Capsule,Delayed Release(Dr/Ec) 20 mg PO DAILY PRN (Reason: indegestion) rosuvastatin 10 mg Tablet 10 mg PO DAILY melatonin 5 mg Tablet 5 mg PO BEDTIME glipizide 5 mg tablet 5 mg PO BID torsemide 20 mg tablet 60 mg PO BID bisacodyl [Dulcolax (bisacodyl)] 10 mg suppository 10 mg KS DAILY PRN (Reason: constipation) Qty: 12 0RF cephalexin 500 mg tablet 500 mg PO Q6H 10 Days Qty: 40 0RF metolazone 2.5 mg tablet 2.5 mg PO 3XW polyethylene glycol 3350 [Miralax] 17 gram/dose powder 17 g PO BID PRN gabapentin 100 mg capsule 0 mg PO (DME) FreeStyle Lite Strips Strip See Rx Instructions Not Applicable BID Qty: 10 Rx Instructions: As directed ergocalciferol (vitamin D2) 1,250 mcg (50,000 unit) capsule 0 mcg PO ferrous sulfate 325 mg (65 mg iron) tablet,delayed release (DR/EC) 325 mg PO DAILY (DME) lancets 28 gauge misc See Rx Instructions topical BID Qty: 100 Rx Instructions: As directed lactulose 10 gram/15 mL solution 15 ml PO DAILY PRN (DME) blood-glucose meter [FreeStyle [place] Lite] Kit See Rx Instructions .ROUTE .MEDSUPPLY Qty: 1 Rx Instructions: As directed insulin aspart U-100 [Novolog Flexpen U-100 Insulin] 100 unit/mL (3 mL) insulin pen subcut Lantus Solostar U-100 Insulin 100 unit/mL (3 mL) insulin pen 30 unit subcut BEDTIME (DME) pen needle, diabetic [BD Ultra-Fine Short Pen Needle] 31 gauge x 5/16 needle See Rx Instructions subcut DAILY Qty: 1200 Rx Instructions: As directed Eliquis 2.5 mg tablet 2.5 mg PO BID 90 Days Qty: 180 3RF Kerendia 10 mg tablet 10 mg PO DAILY
[2022-04-21 04:54] LABS: MANUAL DIFF FLAG NO
[2022-04-21 04:56] LABS: Basophils Percent Auto 0.4 % (0-2); Eosinophils Absolute Auto 0.1 X10*3/uL (0.0-0.4); Eosinophils Percent Auto 2.1 % (0-4); Hematocrit 30.5 % (42.0-52.0); Hemoglobin 9.9 g/dl (14.0-18.0); Imm Gran Abs Auto 0.02 X10*3/uL (0.00-0.03); Imm Gran Pct Auto 0.4 % (0.0-0.4); Lymphocytes Absolute Auto 0.9 X10*3/uL (1.2-4.9); Lymphocytes Percent Auto 16.9 % (20-40); Mean Corpuscular HGB Conc 32.5 g/dl (31.0-36.0); Mean Corpuscular Volume 89.4 fL (80.0-98.0); Mean Platelet Volume 9.6 fL (9.4-12.4); Monocytes Absolute Auto 0.6 X10*3/uL (0.1-1.2); Neutrophils Absolute Auto 3.7 x10*3/uL (2.0-8.3); Neutrophils Percent Auto 69.2 % (45-73); Platelet Count 106 X10*3/uL (160-400); Red Blood Count 3.41 X10*6/uL (4.60-5.80); Red Cell Distribution Width 15.9 % (11.0-16.0); White Blood Count 5.3 X10*3/uL (4.8-10.8)
--- NOTE | 2022-04-21 04:58 | PC.NURSE ---
Pt. resting quietly in bed. Pt. denies pain. Provided with pillow and warm blanket.
[2022-04-21 05:15] LABS: Anion Gap 17 (12-20); Blood Urea Nitrogen 40 mg/dL (9-16); COVID-19 Test Negative (Negative); Calcium 9.6 mg/dL (8.4-10.2); Carbon Dioxide 31 mmol/L (22-29); Chloride 97 mmol/L (96-108); Creatinine Clr Calc Pharmacy 24.7; Estimated Glomerular Filt Rate 28; Glucose Random 194 mg/dL (60-115); Potassium 3.1 mmol/L (3.3-5.1); Sodium 142 mmol/L (135-145)
[2022-04-21] MEDS: Potassium Chloride ER 20 MEQ TAB.ER.PRT PO (06:15)
--- NOTE | 2022-04-21 14:56 | MHC.CM.ED ---
Addendum entered by Traci Nicole 04/22/22 08:36: [facility] was not able to accept pateint. Referral broadcasted. [facility] is able to accept patient. Gabriela from [facility] made aware. Original Note: Received case management consult overnight. Patient requesting VNA. Patient was already discharged home. Patient is active with [facility]. T/W spoke with Gabriela at [facility]. Gabriela will authorize [facility]. Referral made via [facility]. Continue to monitor for d/c needs.
== END 2022-04-21 07:30 | disposition home or self-care (01) ==
PROVIDERS: Emergency Provider Emergency Medicine; PCP Internal Medicine Geriatric Medicine
DX: E87.6 Hypokalemia (principal); R60.0 Localized edema; E11.22 Type 2 diabetes mellitus with diabetic chronic kidney disease; I13.0 Hypertensive heart and chronic kidney disease with heart failure and stage 1 through stage 4 chronic kidney disease, or unspecified chronic kidney disease; N18.9 Chronic kidney disease, unspecified; I50.9 Heart failure, unspecified; I48.19 Other persistent atrial fibrillation; E78.5 Hyperlipidemia, unspecified; Z95.0 Presence of cardiac pacemaker; Z79.02 Long term (current) use of antithrombotics/antiplatelets; Z79.4 Long term (current) use of insulin; Z79.01 Long term (current) use of anticoagulants; Z79.899 Other long term (current) drug therapy; Z20.822 Contact with and (suspected) exposure to COVID-19
CPT/HCPCS: 71045; 80048; 85025; 87635; 93005; 99284

== ENCOUNTER → 2022-05-30 13:07 | Outpatient (BNVA) | payer OTHER, SELFPAY | PROVIDERS: PCP Internal Medicine Geriatric Medicine; Referring Provider Internal Medicine Geriatric Medicine; Visit Provider Internal Medicine | DX: I25.10 Atherosclerotic heart disease of native coronary artery without angina pectoris (principal); I48.19 Other persistent atrial fibrillation; I10 Essential (primary) hypertension; I31.39 Other pericardial effusion (noninflammatory); S06.5X9D Traumatic subdural hemorrhage with loss of consciousness of unspecified duration, subsequent encounter; Z79.01 Long term (current) use of anticoagulants; Z79.899 Other long term (current) drug therapy; Z45.018 Encounter for adjustment and management of other part of cardiac pacemaker | CPT/HCPCS: 99212 ==

== ENCOUNTER 2022-06-24 09:10 | Outpatient (REF) | payer OTHER, SELFPAY ==
--- NOTE | ~2022-06-24 | XR_ITS ---
EXAMINATION: XR CHEST CLINICAL INFORMATION: Cough and hemoptysis. COMPARISON: Chest 04/21/2022 TECHNIQUE: 2 views of the chest were obtained. FINDINGS: There is cardiomegaly with normal pulmonary vascularity. Solitary pacer electrode is in right ventricle. The lungs are expanded and clear. No gross bony abnormality seen. XR/XR chest 2V IMPRESSION: Mild cardiomegaly. No acute process seen.
== END 2022-06-24 09:11 | disposition home or self-care (01) ==
LOC: HO.XRAY 09:10
PROVIDERS: PCP Internal Medicine Geriatric Medicine; Visit Provider Internal Medicine Geriatric Medicine
DX: R04.2 Hemoptysis (principal)
CPT/HCPCS: 71046

== ENCOUNTER → 2022-07-26 13:08 | Outpatient (BNVA) | payer OTHER, SELFPAY | PROVIDERS: PCP Internal Medicine Geriatric Medicine; Visit Provider Hospitalist | DX: J98.59 Other diseases of mediastinum, not elsewhere classified (principal); R04.2 Hemoptysis; R05.9 Cough, unspecified; R07.81 Pleurodynia | CPT/HCPCS: 99202 ==

== ENCOUNTER 2022-08-15 12:32 | Outpatient (REF) | payer OTHER, SELFPAY ==
--- NOTE | ~2022-08-15 | CT_ITS ---
EXAMINATION: CT CHEST WITHOUT CONTRAST CLINICAL INFORMATION: J98.59 - Other diseases of mediastinum, not elsewhere classified COMPARISON: Noncontrast CT chest exams: 10/19/2021 and 07/16/2020 TECHNIQUE: Multidetector volumetric CT imaging of the chest is performed without intravenous contrast. Axial MIP volume rendering provided. Sagittal and coronal reformatted images were obtained. This CT examination was performed using dose optimization techniques as appropriate, variously including the following: *Automated exposure control *Adjustment of mA and/or kV according to patient size (this includes techniques or standardized protocols for targeted exams where dose is matched to indication/reason for exam; i.e. extremities or head) *Use of iterative reconstruction technique DLP: 129 mGy-cm FINDINGS: LUNGS: The central airways are clear and there is no endobronchial lesion or bronchiectasis. No lobar or segmental airspace consolidation or groundglass opacity. No significant pulmonary nodule and no pulmonary mass. MEDIASTINUM: The anterior superior mediastinal mass is without significant change in overall size from prior exams 10/19/2021 and 07/16/2020. Current axial dimensions are approximately 2.5 x 3.4 cm. Lesion is homogeneous 40 HU attenuation. No associated calcification. Remeasurement of prior CT exam dimensions in same orientation are 2.3 x 3.3 cm on prior study 10/19/2021 and 2.7 x 3.[address] 07/16/2020. Again, there are small mediastinal nodes. No interval mediastinal adenopathy. No visible hilar adenopathy. Thoracic aorta is normal in caliber. There is a unipolar pacemaker. The heart is enlarged similar to prior studies with chronic asymmetric pericardial effusion (thickness 1.6 cm right side). CORONARY ARTERY CALCIFICATION: Present PLEURA: There is no pleural effusion. No pleural mass or thickening. AXILLA: No lymphadenopathy. UPPER ABDOMEN: Subtle nodular hepatic contour. Splenule left upper quadrant 1.2 cm, mildly atrophic pancreas. No upper abdominal ascites. OSSEOUS STRUCTURES: No acute bony abnormality. CT/CT chest wo IV con IMPRESSION: 1. Anterior superior mediastinal mass without significant change in size from prior exams 10/19/2021 and 07/16/2020. 2. Chronic cardiomegaly with chronic asymmetric pericardial effusion. 3. Subtle nodular hepatic contour suggesting cirrhosis. No upper abdominal ascites.
== END 2022-08-15 12:33 | disposition home or self-care (01) ==
LOC: HO.CT 12:32
PROVIDERS: PCP Internal Medicine Geriatric Medicine; Visit Provider Hospitalist
DX: J98.59 Other diseases of mediastinum, not elsewhere classified (principal)
CPT/HCPCS: 71250

== ENCOUNTER → 2022-08-29 13:21 | Outpatient (BNVA) | payer OTHER, SELFPAY | PROVIDERS: PCP Internal Medicine Geriatric Medicine; Referring Provider Internal Medicine Geriatric Medicine; Visit Provider Internal Medicine | DX: I25.10 Atherosclerotic heart disease of native coronary artery without angina pectoris (principal); I48.19 Other persistent atrial fibrillation; I10 Essential (primary) hypertension; I31.39 Other pericardial effusion (noninflammatory); S06.5X9D Traumatic subdural hemorrhage with loss of consciousness of unspecified duration, subsequent encounter; Z45.018 Encounter for adjustment and management of other part of cardiac pacemaker; Z79.01 Long term (current) use of anticoagulants; Z79.899 Other long term (current) drug therapy | CPT/HCPCS: 93280; 99212 ==

== ENCOUNTER → 2022-09-02 14:18 | Outpatient (BNVA) | payer OTHER, SELFPAY | PROVIDERS: PCP Internal Medicine Geriatric Medicine; Visit Provider Hospitalist | DX: J98.59 Other diseases of mediastinum, not elsewhere classified (principal); R05.9 Cough, unspecified | CPT/HCPCS: 99212 ==

== ENCOUNTER → 2022-09-08 07:50 | Day surgery (SDC) | payer OTHER, SELFPAY ==
--- NOTE | 2022-09-07 12:10 | HO.ANESPROP2 ---
HPI - Anesthesia Eval Consult details Narrative: K critically low at 2.5 on DOS. Tx'd to ER. 81yo M for Pacemaker Generator Change single chamber PMFSH Active Problems Active Problems: All Active Problems (Updated 09/04/22 @ 22:01 by Dandre Squires MD) Pleuritic chest pain (Acute) Cough (Acute) Hemoptysis (Acute) Osteoarthritis of right knee (Acute) History of CVA with residual deficit (Acute ~04/2005) SDH (subdural hematoma) (Acute) Mediastinal mass (Acute) Pericardial effusion (Acute) Normally functioning cardiac pacemaker present (Acute ~2006) Persistent atrial fibrillation (Acute) Atherosclerotic cardiovascular disease (Acute) Essential hypertension (Acute) Diabetes mellitus (Acute) GOOD (acute kidney injury) (Acute) Past Medical History Medical History Atherosclerotic cardiovascular disease Cough Diabetes mellitus Essential hypertension GERD (gastroesophageal reflux disease) Hemoptysis History of COVID-19 (~06/2020) History of CVA with residual deficit (~04/2005) Hyperlipidemia Kidney disease Normally functioning cardiac pacemaker present (~2006) Pacemaker (~2006) Persistent atrial fibrillation Pleuritic chest pain SDH (subdural hematoma) Family History Family History Father No problems noted. Mother No problems noted. Surgical History Surgical History History of craniotomy History of heart artery stent History of permanent cardiac pacemaker placement (~09/2006) Social History Social History Household Members: Family Housing: House Do you presently have visiting nurse or other home services: Yes Alcohol intake: unknown Patient Tobacco Use Status: Former Tobacco user Quit Date: >30 yrs ago Smoked in Last 30 Days: No Use of substances other than those prescribed or required for medical reasons: Unknown Last Used Substance: Unknown Any prior treatment program specific to substance use: No Advance Directives: No Advance Directives Information Provided: Yes service: No Current occupational status: retired Meds Allergies Allergy/AdvReac Type Severity Reaction Status Date / Time No Known Allergies Allergy Unknown Verified 09/08/22 08:20 NSAIDS due to CKD Allergy Unknown n/a Uncoded 09/02/22 14:32 Home Medications Medication Instructions Recorded Confirmed Last Taken Type carvedilol 3.125 mg tablet 3.125 mg PO BID 07/02/20 09/08/22 Unknown History rosuvastatin 10 mg tablet 10 mg PO DAILY 07/02/20 09/08/22 Unknown History glipizide 5 mg tablet 5 mg PO BID 09/25/20 09/08/22 Unknown History blood sugar diagnostic #10 ea 12/18/20 09/08/22 Unknown History ferrous sulfate 325 mg (65 mg 325 mg PO DAILY 12/18/20 09/08/22 Unknown History iron) tablet,delayed release lactulose 10 gram/15 mL oral 15 ml PO DAILY PRN Constipation 12/18/20 09/08/22 Unknown History solution lancets 28 gauge #100 ea 12/18/20 09/08/22 Unknown History polyethylene glycol 3350 17 17 g PO BID PRN Constipation 12/18/20 09/08/22 Unknown History gram/dose oral powder (Miralax) torsemide 20 mg tablet 60 mg PO BID 01/12/21 09/08/22 Unknown History metolazone 2.5 mg tablet 2.5 mg PO 3XW 03/01/21 09/08/22 Unknown History blood-glucose meter (FreeStyle #1 ea 04/02/21 09/08/22 Unknown History [place] Lite kit) insulin glargine 100 unit/mL (3 30 unit subcut BEDTIME 04/02/21 09/08/22 Unknown History mL) subcutaneous pen (Lantus Solostar U-100 Insulin) pen needle, diabetic 31 gauge x #1,200 ea 04/02/21 09/08/22 Unknown History 5/16 (BD Ultra-Fine Short Pen Needle) gabapentin 100 mg capsule 100 mg PO BID 05/30/22 09/08/22 Unknown History insulin aspart U-100 100 unit/mL 5 unit subcut ONCE 05/30/22 09/08/22 Unknown History (3 mL) subcutaneous pen (Novolog FlexPen U-100 Insulin aspart) omeprazole 20 mg capsule,delayed 20 mg PO DAILY indegestion 05/30/22 09/08/22 Unknown History release albuterol sulfate 90 mcg/actuation 2 puff inhalation Q6H PRN wheezing 07/26/22 09/08/22 Unknown History aerosol inhaler (Ventolin HFA) amlodipine 2.5 mg tablet 2.5 mg PO QAM 07/26/22 09/08/22 Unknown History calcitriol 0.25 mcg capsule 0.25 mcg PO Q OTHER DAY 07/26/22 09/08/22 Unknown History lidocaine 5 % topical patch 1 patch topical DAILY 07/26/22 09/08/22 Unknown History Exam Exam Date and Time: September 07, 2022 1210 Narrative Narrative: Cardiac Device Check 08/2022 Details: Pacemaker interrogated today.? Single-chamber device, programmed in VVIR mode.? Battery status less than 1-3 months.? 99% V paced.? No observation episodes.? Otherwise normal lead parameters.? Overall, normal function. EKG 04/2022 Vent. Rate : 061 BPM ? ? Atrial Rate : 049 BPM ?? P-R Int : 000 ms? QRS Dur : 198 ms ? ? QT Int : 510 ms ? ? ? P-R-T Axes : 000 -78 085 degrees ?? QTc Int : 513 ms ? Ventricular-paced rhythm Abnormal ECG When compared with ECG of 16-JUL-2020 20:13, No significant change was found ECHO 07/2021 Conclusions: - Small pericardial effusion present.? Findings Left Ventricle Normal left ventricular size and systolic function. The visually estimated ejection fraction is between 55-60%.? There is no evidence of regional wall motion abnormalities.? There is paradoxical septal motion consistent with a left bundle branch block. Assessment and Plan Assessment Anesthesia Assessment: Chart Reviewed
[2022-09-08 08:19] LABS: Hematocrit 30.3 % (42.0-52.0); Hemoglobin 10.7 g/dl (14.0-18.0); Mean Corpuscular HGB Conc 35.3 g/dl (31.0-36.0); Mean Corpuscular Hemoglobin 29.5 pg (27.0-33.0); Mean Corpuscular Volume 83.5 fL (80.0-98.0); Mean Platelet Volume 8.4 fL (9.4-12.4); Platelet Count 164 X10*3/uL (160-400); Red Blood Count 3.63 X10*6/uL (4.60-5.80); Red Cell Distribution Width 15.1 % (11.0-16.0); White Blood Count 8.4 X10*3/uL (4.8-10.8)
[2022-09-08 08:35] VITALS: BP 145/67; PULSE 61; RESP 16; TEMP 36.6; O2SAT 98; BMI 25.0
[2022-09-08] MEDS: Lactated Ringers 1,000 ML 50 ML IVCONT (08:43)
[2022-09-08 08:45] LABS: Anion Gap 20 (12-20); Blood Urea Nitrogen 64 mg/dL (9-16); Calcium 10.1 mg/dL (8.4-10.2); Carbon Dioxide 33 mmol/L (22-29); Chloride 91 mmol/L (96-108); Creatinine Clr Calc Pharmacy 21.1; Estimated Glomerular Filt Rate 24; Glucose Fasting 167 mg/dL (60-99); Potassium 2.5 mmol/L (3.3-5.1); Sodium 141 mmol/L (135-145)
--- NOTE | 2022-09-08 08:53 | P.HPSUR_ITS ---
Pre-Procedural Eval Section A Date of Service: 09/08/22 The patient is an INPATIENT: No The History & Physical has been completed within 30 days and I have reviewed it.: Yes Section B Chief Complaint: Atherosclerotic heart disease of [place] coronary Allergies: Allergies Allergy/AdvReac Type Severity Reaction Status Date / Time No Known Allergies Allergy Unknown Verified 09/08/22 08:20 NSAIDS due to CKD Allergy Unknown n/a Uncoded 09/02/22 14:32 Plan I have reviewed the history and physical and performed a pertinent physical examination on my patient. No changes have occurred unless specified.Plan is for single-chamber generator change. I discussed the risks, benefits, and alternatives with the patient which he understood and agreed to proceed. Time Spent With Patient Time: Total time managing care of this patient today ____ minutes.
[2022-09-08 08:58] LABS: Glucose, Whole Blood 162 mg/dL (60-115)
--- NOTE | 2022-09-08 09:43 | PC.NURSE ---
critical result potassium of 2.5 called to me at 845. dr mehta made aware. covering anesthesia, dr butts made aware. dr butts told dr hoang. unable to do generator change today. magnesium added to labs and awaiting to see if patient is going to er or home for potassium replacement.
[2022-09-08 10:02] LABS: Magnesium 2.5 mg/dL (1.6-2.6)
--- NOTE | 2022-09-08 10:29 | PC.NURSE ---
pt brought to er per anesthesia. daughter called and updated.
== END ==
PROVIDERS: Internal Medicine; Nurse Practitioner; PCP Internal Medicine Geriatric Medicine; Visit Provider Surgery
DX: Z45.018 Encounter for adjustment and management of other part of cardiac pacemaker (principal); Z53.09 Procedure and treatment not carried out because of other contraindication; E87.6 Hypokalemia; I48.19 Other persistent atrial fibrillation; I25.10 Atherosclerotic heart disease of native coronary artery without angina pectoris; I10 Essential (primary) hypertension; E11.9 Type 2 diabetes mellitus without complications
CPT/HCPCS: 36415; 80048; 82947; 83735; 85027; J0690; J2795; J3370

== ENCOUNTER 2022-09-08 10:14 | Emergency (ER) | payer OTHER, SELFPAY ==
[2022-09-08 10:21] VITALS: BP 140/61; PULSE 67; RESP 18; TEMP 36.4; O2SAT 98; BMI 25.0
--- NOTE | 2022-09-08 10:22 | ECG_ITS ---
Test Reason : HYPOKALEMIA Blood Pressure : / mmHG Vent. Rate : 063 BPM Atrial Rate : 061 BPM P-R Int : 000 ms QRS Dur : 188 ms QT Int : 510 ms P-R-T Axes : 000 -79 095 degrees QTc Int : 521 ms Ventricular-paced rhythm Abnormal ECG When compared with ECG of 21-APR-2022 03:39, Vent. rate has increased BY 2 BPM Referred By: Kirsten Michelle Electronically Signed By:DANAY WEBER MD
[2022-09-08 10:35] LABS: MANUAL DIFF FLAG NO
[2022-09-08 10:37] LABS: Basophils Percent Auto 0.1 % (0-2); Eosinophils Absolute Auto 0.1 X10*3/uL (0.0-0.4); Eosinophils Percent Auto 1.5 % (0-4); Hematocrit 28.6 % (42.0-52.0); Hemoglobin 10.1 g/dl (14.0-18.0); Imm Gran Abs Auto 0.05 X10*3/uL (0.00-0.03); Imm Gran Pct Auto 0.6 % (0.0-0.4); Lymphocytes Absolute Auto 1.7 X10*3/uL (1.2-4.9); Lymphocytes Percent Auto 20.7 % (20-40); Mean Corpuscular HGB Conc 35.3 g/dl (31.0-36.0); Mean Corpuscular Hemoglobin 29.6 pg (27.0-33.0); Mean Corpuscular Volume 83.9 fL (80.0-98.0); Mean Platelet Volume 8.8 fL (9.4-12.4); Monocytes Absolute Auto 0.6 X10*3/uL (0.1-1.2); Monocytes Percent Auto 7.4 % (2-11); Neutrophils Absolute Auto 5.6 x10*3/uL (2.0-8.3); Neutrophils Percent Auto 69.7 % (45-73); Platelet Count 155 X10*3/uL (160-400); Red Blood Count 3.41 X10*6/uL (4.60-5.80); Red Cell Distribution Width 15.1 % (11.0-16.0)
--- NOTE | 2022-09-08 10:54 | PC.NURSE ---
MD at bedside will ARNALDOM
--- NOTE | 2022-09-08 10:56 | ED.GENADULT ---
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 He did not have any labs or EKG clearance prior to today and was noted to be hypo kalemia it without acute complaints. Patient denies any dizziness, shortness of breath, chest pain/palpitations, denies any GI or symptoms and denies any muscle cramping. Patient states he is simply hungry. Related Data Home Medications Medication Instructions Recorded Confirmed carvedilol 3.125 mg tablet 3.125 mg PO BID 07/02/20 09/08/22 rosuvastatin 10 mg tablet 10 mg PO DAILY 07/02/20 09/08/22 glipizide 5 mg tablet 5 mg PO BID 09/25/20 09/08/22 blood sugar diagnostic #10 ea 12/18/20 09/08/22 ferrous sulfate 325 mg (65 mg 325 mg PO DAILY 12/18/20 09/08/22 iron) tablet,delayed release lactulose 10 gram/15 mL oral 15 ml PO DAILY PRN Constipation 12/18/20 09/08/22 solution lancets 28 gauge #100 ea 12/18/20 09/08/22 polyethylene glycol 3350 17 17 g PO BID PRN Constipation 12/18/20 09/08/22 gram/dose oral powder (Miralax) torsemide 20 mg tablet 60 mg PO BID 01/12/21 09/08/22 metolazone 2.5 mg tablet 2.5 mg PO 3XW 03/01/21 09/08/22 blood-glucose meter (FreeStyle #1 ea 04/02/21 09/08/22 [place] Lite kit) insulin glargine 100 unit/mL (3 30 unit subcut BEDTIME 04/02/21 09/08/22 mL) subcutaneous pen (Lantus Solostar U-100 Insulin) pen needle, diabetic 31 gauge x #1,200 ea 04/02/21 09/08/22 5/16 (BD Ultra-Fine Short Pen Needle) gabapentin 100 mg capsule 100 mg PO BID 05/30/22 09/08/22 insulin aspart U-100 100 unit/mL 5 unit subcut ONCE 05/30/22 09/08/22 (3 mL) subcutaneous pen (Novolog FlexPen U-100 Insulin aspart) omeprazole 20 mg capsule,delayed 20 mg PO DAILY indegestion 05/30/22 09/08/22 release albuterol sulfate 90 mcg/actuation 2 puff inhalation Q6H PRN wheezing 07/26/22 09/08/22 aerosol inhaler (Ventolin HFA) amlodipine 2.5 mg tablet 2.5 mg PO QAM 07/26/22 09/08/22 calcitriol 0.25 mcg capsule 0.25 mcg PO Q OTHER DAY 07/26/22 09/08/22 lidocaine 5 % topical patch 1 patch topical DAILY 07/26/22 09/08/22 Previous Rx's Medication Instructions Recorded apixaban 2.5 mg tablet (Eliquis) 2.5 mg PO BID 90 days #180 tabs 02/28/22 acetaminophen 650 mg 650 mg PO Q12H PRN for pain #60 07/18/22 tablet,extended release tabs fluticasone propionate 50 2 spray intranasal DAILY 30 days 09/04/22 mcg/actuation nasal #15.8 mL spray,suspension Allergies Allergy/AdvReac Type Severity Reaction Status Date / Time No Known Allergies Allergy Unknown Verified 09/08/22 08:20 NSAIDS due to CKD Allergy Unknown n/a Uncoded 09/02/22 14:32 Review of Systems Review of Systems: Pertinent positives and negatives as stated in HPI ON LICENSE OF [facility] Past Medical History Source: nursing notes reviewed Medical History Atherosclerotic cardiovascular disease Cough Diabetes mellitus Essential hypertension GERD (gastroesophageal reflux disease) Hemoptysis History of COVID-19 (~06/2020) History of CVA with residual deficit (~04/2005) Hyperlipidemia Kidney disease Normally functioning cardiac pacemaker present (~2006) Pacemaker (~2006) Persistent atrial fibrillation Pleuritic chest pain SDH (subdural hematoma) Surgical History History of craniotomy History of heart artery stent History of permanent cardiac pacemaker placement (~09/2006) Family History Family History Father No problems noted. Mother No problems noted. Social History Social History Household Members: Family Housing: House Do you presently have visiting nurse or other home services: Yes Alcohol intake: unknown Patient Tobacco Use Status: Former Tobacco user Quit Date: >30 yrs ago Smoked in Last 30 Days: No Use of substances other than those prescribed or required for medical reasons: Unknown Last Used Substance: Unknown Any prior treatment program specific to substance use: No Advance Directives: No Advance Directives Information Provided: Yes service: No Current occupational status: retired Physical Exam ED Vital Signs: Vital Signs - 24 hr 09/08/22 10:21 09/08/22 12:57 Temperature 97.6 F Pulse Rate 67 60 Respiratory Rate 18 18 Blood Pressure 140/61 H 137/60 Pulse Oximetry 98 98 Oxygen Delivery Method Room Air Room Air BMI result Body Mass Index 25.0 VITAL SIGNS: Reviewed. GENERAL: Well developed, well nourished, in no acute distress. HEAD: Normocephalic/atraumatic EYES: PERRLA, EOMI LUNGS: Normal breath sounds. No adventitious sounds or accessory muscle use. SpO2<98> CARDIOVASCULAR: Regular rate and rhythm without noted murmurs, no JVD or lower extremity edema. ABDOMEN: Soft, non-tender, non-distended with bowel sounds. MUSCULOSKELETAL: No tenderness, deformities, or effusions noted on gross inspection. EXTREMITIES: No cyanosis, clubbing or edema. SKIN: Inspection of the skin reveals no rashes NEUROLOGIC: Alert and oriented x 4. Strength and sensation to light touch were grossly intact x 4. Medications Administered Generic Name Dose Route Start Last Admin Trade Name Freq PRN Reason Stop Dose Admin Potassium Chloride 10 meq in 100 mls @ 100 mls/hr 09/08/22 12:45 09/08/22 14:02 Potassium Chloride/H20 IV 09/08/22 16:44 100 mls/hr Q1H LEYLA Administration Medical Decision Making Medical Decision Making MDM Narrative: 81-year-old male with asymptomatic low potassium, will complete basic labs, replete magnesium and potassium as indicated and then patient is otherwise hemodynamically stable and will be instructed to follow-up with his primary care provider. Magnesium is within normal limits, potassium-2.3, will receive 40 mEq IV and re-evaluate. Patient is otherwise asymptomatic and after repeat BMP he will likely be stable for discharge to home. Differential Diagnosis Please see the discussion above Lab Data Please see the discussion above 09/08/22 10:27 09/08/22 10:27 Labs: Lab Results 09/08/22 09/08/22 Range/Units 10:27 10:27 WBC 8.0 (4.8-10.8) X10*3/uL RBC 3.41 L (4.60-5.80) X10*6/uL Hgb 10.1 L (14.0-18.0) g/dl Hct 28.6 L (42.0-52.0) % MCV 83.9 (80.0-98.0) fL MCH 29.6 (27.0-33.0) pg MCHC 35.3 (31.0-36.0) g/dl RDW 15.1 (11.0-16.0) % Plt Count 155 L (160-400) X10*3/uL MPV 8.8 L (9.4-12.4) fL Immature Gran % (Auto) 0.6 H (0.0-0.4) % Neut % (Auto) 69.7 (45-73) % Lymph % (Auto) 20.7 (20-40) % Burt % (Auto) 7.4 (2-11) % Eos % (Auto) 1.5 (0-4) % Baso % (Auto) 0.1 (0-2) % Lymph # (Auto) 1.7 (1.2-4.9) X10*3/uL Burt # (Auto) 0.6 (0.1-1.2) X10*3/uL Eos # (Auto) 0.1 (0.0-0.4) X10*3/uL Baso # (Auto) 0.0 (0.0-0.2) X10*3/uL Abs Immat Gran (auto) 0.05 H (0.00-0.03) X10*3/uL Absolute Neuts (auto) 5.6 (2.0-8.3) x10*3/uL Absolute Nucleated RBC 0.000 (0.0-0.012) X10*3/uL Nucleated RBC % (auto) 0.0 (0.0-0.2) /100WBC Sodium 140 (135-145) mmol/L Potassium 2.3 L* (3.3-5.1) mmol/L Chloride 92 L (96-108) mmol/L Carbon Dioxide 35 H (22-29) mmol/L Anion Gap 15 (12-20) BUN 62 H (9-16) mg/dL Creatinine 2.46 H (0.5-1.4) mg/dL Estim Creat Clear Calc 22.3 Estimated GFR 25 Random Glucose 174 H (60-115) mg/dL Calcium 9.4 D (8.4-10.2) mg/dL Magnesium 2.6 (1.6-2.6) mg/dL Total Bilirubin 1.3 H (0.0-1.0) mg/dL AST 28 (5-37) U/L ALT 18 (0-40) U/L Alkaline Phosphatase 60 (39-117) U/L Total Protein 6.9 (6.5-8.0) g/dL Albumin 4.0 (3.5-5.0) g/dL Independent Interpretation I performed an independent interpretation of an: EKG Interpretation: Ventricular paced rhythm, HR-63, in no STEMI Discharge Plan Discharge Clinical Impression: Hypokalemia Patient Disposition: Still a Patient Prescriptions: No Action acetaminophen 650 mg tablet extended release 650 mg PO Q12H PRN (Reason: for pain) Qty: 60 0RF carvedilol 3.125 mg Tablet 3.125 mg PO BID rosuvastatin 10 mg Tablet 10 mg PO DAILY glipizide 5 mg tablet 5 mg PO BID torsemide 20 mg tablet 60 mg PO BID omeprazole 20 mg capsule,delayed release(DR/EC) 20 mg PO DAILY metolazone 2.5 mg tablet 2.5 mg PO 3XW polyethylene glycol 3350 [Miralax] 17 gram/dose powder 17 g PO BID PRN (Reason: Constipation) (DME) FreeStyle Lite Strips Strip See Rx Instructions Not Applicable BID Qty: 10 Rx Instructions: As directed ferrous sulfate 325 mg (65 mg iron) tablet,delayed release (DR/EC) 325 mg PO DAILY (DME) lancets 28 gauge misc See Rx Instructions topical BID Qty: 100 Rx Instructions: As directed gabapentin 100 mg capsule 100 mg PO BID lactulose 10 gram/15 mL solution 15 ml PO DAILY PRN (Reason: Constipation) (DME) blood-glucose meter [FreeStyle [place] Lite] Kit See Rx Instructions .ROUTE .MEDSUPPLY Qty: 1 Rx Instructions: As directed Lantus Solostar U-100 Insulin 100 unit/mL (3 mL) insulin pen 30 unit subcut BEDTIME (DME) pen needle, diabetic [BD Ultra-Fine Short Pen Needle] 31 gauge x 5/16 needle See Rx Instructions subcut DAILY Qty: 1200 Rx Instructions: As directed insulin aspart U-100 [Novolog FlexPen U-100 Insulin] 100 unit/mL (3 mL) insulin pen 5 unit subcut ONCE Eliquis 2.5 mg tablet 2.5 mg PO BID 90 Days Qty: 180 3RF lidocaine 5 % adhesive patch,medicated 1 patch topical DAILY amlodipine 2.5 mg tablet 2.5 mg PO QAM calcitriol 0.25 mcg capsule 0.25 mcg PO Q OTHER DAY albuterol sulfate [Ventolin HFA] 90 mcg/actuation HFA aerosol inhaler 2 puff inhalation Q6H PRN (Reason: wheezing) fluticasone propionate 50 mcg/actuation spray,suspension 2 spray intranasal DAILY 30 Days Qty: 15.8 11RF
[2022-09-08 11:40] LABS: Alanine Aminotransferase 18 U/L (0-40); Alkaline Phosphatase 60 U/L (39-117); Anion Gap 15 (12-20); Aspartate Amino Transferase 28 U/L (5-37); Bilirubin Total 1.3 mg/dL (0.0-1.0); Blood Urea Nitrogen 62 mg/dL (9-16); Calcium 9.4 mg/dL (8.4-10.2); Carbon Dioxide 35 mmol/L (22-29); Chloride 92 mmol/L (96-108); Creatinine Clr Calc Pharmacy 22.3; Estimated Glomerular Filt Rate 25; Glucose Random 174 mg/dL (60-115); Potassium 2.3 mmol/L (3.3-5.1); Sodium 140 mmol/L (135-145); Total Protein 6.9 g/dL (6.5-8.0)
--- NOTE | 2022-09-08 12:15 | PC.NURSE ---
Patient resting comfortably no distress noted some mild agitation easily redirected will CTM
[2022-09-08 12:33] LABS: Magnesium 2.6 mg/dL (1.6-2.6)
[2022-09-08] MEDS: Potassium Chloride/H20 10 MEQ/100 ML PIGGYBACK 100 MEQ IV ×4 (12:54→16:11)
[2022-09-08 12:57] VITALS: BP 137/60; PULSE 60; RESP 18; O2SAT 98
[2022-09-08 14:46] LABS: Glucose, Whole Blood 229 mg/dL (60-115)
--- NOTE | 2022-09-08 14:54 | MHC.EDTECH ---
Per Dr. Michelle, Pt needed POC. It was 229. RN Anselmo aware.
--- NOTE | 2022-09-08 15:45 | MHC.EDTECH ---
pt vitas ,sign taken ,pt ask for food ,grham cracker and melinda zack given .
[2022-09-08 15:53] VITALS: BP 106/55; PULSE 60; RESP 16; O2SAT 99
--- NOTE | 2022-09-08 16:00 | PC.NURSE ---
Family at bedside tolerating IVPB potassium will CTM
[2022-09-08 16:20] LABS: COVID-19 Test Negative (Negative); IDNOW Serial# 08D9AD1C
--- NOTE | 2022-09-08 16:45 | MHC.EDTECH ---
phlebotomy status board was not working ,so patient label was but on blood tube .
[2022-09-08 17:35] LABS: Anion Gap 17 (12-20); Blood Urea Nitrogen 59 mg/dL (9-16); Calcium 9.3 mg/dL (8.4-10.2); Carbon Dioxide 31 mmol/L (22-29); Chloride 94 mmol/L (96-108); Creatinine Clr Calc Pharmacy 24.1; Estimated Glomerular Filt Rate 28; Glucose Random 313 mg/dL (60-115); Sodium 139 mmol/L (135-145)
[2022-09-08] MEDS: Potassium Chloride ER 20 MEQ TAB.ER.PRT 60 MEQ PO (17:59)
[2022-09-08 18:00] VITALS: BP 113/56; BP 133/61; PULSE 60; PULSE 77; RESP 16; RESP 18; O2SAT 100; O2SAT 96
--- NOTE | 2022-09-08 18:14 | PC.NURSE ---
Waiting for daughter to pick him up
--- NOTE | 2022-09-08 18:26 | MHC.EDTECH ---
pt was given dinner ,ate 100 % of meal ,drank 480 ml fluids ,pt waiting for his daughter to pick him up .
== END 2022-09-08 18:54 | disposition home or self-care (01) ==
PROVIDERS: Emergency Provider Student in an Organized Health Care Education/Training Program; PCP Internal Medicine Geriatric Medicine
DX: E87.6 Hypokalemia (principal); Z20.822 Contact with and (suspected) exposure to COVID-19; E11.22 Type 2 diabetes mellitus with diabetic chronic kidney disease; I12.9 Hypertensive chronic kidney disease with stage 1 through stage 4 chronic kidney disease, or unspecified chronic kidney disease; N18.9 Chronic kidney disease, unspecified; E78.5 Hyperlipidemia, unspecified; I48.19 Other persistent atrial fibrillation; Z95.0 Presence of cardiac pacemaker; Z86.73 Personal history of transient ischemic attack (TIA), and cerebral infarction without residual deficits; Z87.891 Personal history of nicotine dependence; Z79.02 Long term (current) use of antithrombotics/antiplatelets; Z79.899 Other long term (current) drug therapy; Z79.4 Long term (current) use of insulin; Z79.01 Long term (current) use of anticoagulants
CPT/HCPCS: 36415; 80048; 80053; 82947; 83735; 85025; 87635; 93005; 96365; 96366; 99285

== ENCOUNTER 2022-09-16 09:06 | Outpatient (REF) | payer OTHER, SELFPAY ==
[2022-09-16 10:13] LABS: Anion Gap 12 (12-20); Blood Urea Nitrogen 43 mg/dL (9-16); Calcium 9.4 mg/dL (8.4-10.2); Carbon Dioxide 37 mmol/L (22-29); Chloride 98 mmol/L (96-108); Estimated Glomerular Filt Rate 25; Glucose Random 119 mg/dL (60-115); Potassium 3.3 mmol/L (3.3-5.1); Sodium 144 mmol/L (135-145)
[2022-09-16 10:14] LABS: Cholesterol 114 mg/dL; HDL Cholesterol 29 mg/dL; LDL Cholesterol Calculated 59 mg/dl; Triglycerides 134 mg/dL
[2022-09-16 10:51] LABS: Estimated Average Glucose 169 mg/dL; Hemoglobin A1c % 7.5 %
== END 2022-09-16 09:07 | disposition home or self-care (01) ==
LOC: HO.LAB 09:06
PROVIDERS: Absent Provider Nurse Practitioner Family; Visit Provider Internal Medicine Geriatric Medicine
DX: Z01.810 Encounter for preprocedural cardiovascular examination (principal); E11.8 Type 2 diabetes mellitus with unspecified complications
CPT/HCPCS: 36415; 80048; 80061; 83036

== ENCOUNTER 2022-10-04 12:46 | Outpatient (REF) | payer OTHER, SELFPAY ==
--- NOTE | ~2022-10-04 | XR_ITS ---
EXAMINATION: XR WRIST, RIGHT CLINICAL INFORMATION: Right wrist swelling. COMPARISON: None available. TECHNIQUE: PA, lateral, oblique, and scaphoid views of the right wrist. 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 Joint spaces are relatively well-preserved. More moderate osteoarthritis is present at the thumb interphalangeal joint. No erosions. Mild soft tissue swelling. Bone mineralization is normal. 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 More moderate osteoarthritis at the thumb interphalangeal joint.
== END 2022-10-04 12:47 | disposition home or self-care (01) ==
LOC: HO.XRAY 12:46
PROVIDERS: PCP Internal Medicine Geriatric Medicine; Visit Provider Nurse Practitioner Primary Care
DX: M25.531 Pain in right wrist (principal)
CPT/HCPCS: 73110

== ENCOUNTER 2022-10-14 10:12 | Day surgery (SDC) | payer OTHER, SELFPAY ==
[2022-10-11 13:39] VITALS: BMI 25.0
--- NOTE | 2022-10-13 11:45 | P.CONAN_ITS ---
Documented by User: Roya Zhong NP 10/13/22 11:48 HPI - Anesthesia Eval Consult details Narrative: 82yo M for Pacemaker Generator Change single chamber Pacer in situ Previously cx'd d/t critcially low K PMFSH Active Problems Active Problems: All Active Problems (Updated 09/15/22 @ 11:24 by Aurea Burton PA-C) Preop cardiovascular exam (Acute) Mediastinal mass (Acute) Pericardial effusion (Acute) Cough (Acute) Hemoptysis (Acute) Pleuritic chest pain (Acute) Normally functioning cardiac pacemaker present (Acute ~2006) Persistent atrial fibrillation (Acute) Atherosclerotic cardiovascular disease (Acute) Essential hypertension (Acute) Diabetes mellitus (Acute) GOOD (acute kidney injury) (Acute) History of CVA with residual deficit (Acute ~04/2005) SDH (subdural hematoma) (Acute) Osteoarthritis of right knee (Acute) Past Medical History Medical History Atherosclerotic cardiovascular disease Cough Diabetes mellitus Essential hypertension GERD (gastroesophageal reflux disease) Hemoptysis History of COVID-19 (~06/2020) History of CVA with residual deficit (~04/2005) Hyperlipidemia Kidney disease Normally functioning cardiac pacemaker present (~2006) Pacemaker (~2006) Persistent atrial fibrillation Pleuritic chest pain SDH (subdural hematoma) Family History Family History Father No problems noted. Mother No problems noted. Surgical History Surgical History History of craniotomy History of heart artery stent History of permanent cardiac pacemaker placement (~09/2006) Social History Social History Household Members: Family Housing: House Do you presently have visiting nurse or other home services: Yes Alcohol intake: unknown Patient Tobacco Use Status: Former Tobacco user Quit Date: >30 yrs ago Second Hand Smoke Exposure: No Use of substances other than those prescribed or required for medical reasons: No Are you DNR?: No Advance Directives: No Advance Directives Information Provided: Yes Advance Directives on File: No service: No Current occupational status: retired Meds Allergies Allergy/AdvReac Type Severity Reaction Status Date / Time NSAIDS due to CKD Allergy Unknown n/a Uncoded 09/02/22 14:32 Home Medications Medication Instructions Recorded Confirmed Last Taken Type carvedilol 3.125 mg tablet 3.125 mg PO BID 07/02/20 10/11/22 10/14/22 History rosuvastatin 10 mg tablet 10 mg PO DAILY 07/02/20 10/11/22 Unknown History glipizide 5 mg tablet 5 mg PO BID 09/25/20 10/11/22 Unknown History blood sugar diagnostic #10 ea 12/18/20 09/08/22 Unknown History ferrous sulfate 325 mg (65 mg 325 mg PO DAILY 12/18/20 10/11/22 Unknown History iron) tablet,delayed release lactulose 10 gram/15 mL oral 15 ml PO DAILY PRN Constipation 12/18/20 10/11/22 Unknown History solution lancets 28 gauge #100 ea 12/18/20 09/08/22 Unknown History polyethylene glycol 3350 17 17 g PO BID PRN Constipation 12/18/20 10/11/22 Unknown History gram/dose oral powder (Miralax) torsemide 20 mg tablet 60 mg PO BID 01/12/21 10/11/22 Unknown History metolazone 2.5 mg tablet 2.5 mg PO 3XW 03/01/21 10/11/22 Unknown History blood-glucose meter (FreeStyle #1 ea 04/02/21 09/08/22 Unknown History [place] Lite kit) insulin glargine 100 unit/mL (3 30 unit subcut BEDTIME 04/02/21 10/11/22 Unknown History mL) subcutaneous pen (Lantus Solostar U-100 Insulin) pen needle, diabetic 31 gauge x #1,200 ea 04/02/21 09/08/22 Unknown History 5/16 (BD Ultra-Fine Short Pen Needle) gabapentin 100 mg capsule 100 mg PO BID 05/30/22 10/11/22 Unknown History insulin aspart U-100 100 unit/mL 5 unit subcut TIDAC 05/30/22 10/11/22 Unknown History (3 mL) subcutaneous pen (Novolog FlexPen U-100 Insulin aspart) omeprazole 20 mg capsule,delayed 20 mg PO DAILY indegestion 05/30/22 10/11/22 10/14/22 History release albuterol sulfate 90 mcg/actuation 2 puff inhalation Q6H PRN wheezing 07/26/22 10/11/22 Unknown History aerosol inhaler (Ventolin HFA) amlodipine 2.5 mg tablet 2.5 mg PO QAM 07/26/22 10/11/22 10/14/22 History calcitriol 0.25 mcg capsule 0.25 mcg PO Q OTHER DAY 07/26/22 10/11/22 Unknown History lidocaine 5 % topical patch 1 patch topical DAILY 07/26/22 10/11/22 Unknown History Exam Exam Date and Time: October 13, 2022 1145 Height,Weight and Vital Signs: Height 5 ft 7 in Weight 72.575 kg Pertinent Lab Results Pertinent Lab Results: Laboratory Tests 09/08/22 10:27 WBC 8.0 Hgb 10.1 L Hct 28.6 L Plt Count 155 L Narrative Narrative: EKG 08/2022 Vent. Rate : 063 BPM ? ? Atrial Rate : 061 BPM ?? P-R Int : 000 ms? QRS Dur : 188 ms ? ? QT Int : 510 ms ? ? ? P-R-T Axes : 000 -79 095 degrees ?? QTc Int : 521 ms ? Ventricular-paced rhythm Abnormal ECG When compared with ECG of 21-APR-2022 03:39, Vent. rate has increased BY ? 2 BPM ECHO Conclusions: - Small pericardial effusion present.? Findings Left Ventricle Normal left ventricular size and systolic function. The visually estimated ejection fraction is between 55-60%.? There is no evidence of regional wall motion abnormalities.? There is paradoxical septal motion consistent with a left bundle branch block. Assessment and Plan Assessment Anesthesia Assessment: Chart Reviewed Documented by User: Hamilton Head MD 10/14/22 12:56 [facility] Past Medical History Medical History Atherosclerotic cardiovascular disease Cough Diabetes mellitus Essential hypertension GERD (gastroesophageal reflux disease) Hemoptysis History of COVID-19 (~06/2020) History of CVA with residual deficit (~04/2005) Hyperlipidemia Kidney disease Normally functioning cardiac pacemaker present (~2006) Pacemaker (~2006) Persistent atrial fibrillation Pleuritic chest pain SDH (subdural hematoma) Family History Family History Father No problems noted. Mother No problems noted. Family history of problems with anesthesia: No Surgical History Surgical History History of craniotomy History of heart artery stent History of permanent cardiac pacemaker placement (~09/2006) History of Problems with Anesthesia: No Social History Social History Household Members: Family Housing: House Do you presently have visiting nurse or other home services: Yes Alcohol intake: unknown Patient Tobacco Use Status: Former Tobacco user Quit Date: >30 yrs ago Second Hand Smoke Exposure: No Use of substances other than those prescribed or required for medical reasons: No Are you DNR?: No Advance Directives: No Advance Directives Information Provided: Yes Advance Directives on File: No service: No Current occupational status: retired [employer] Allergies Allergy/AdvReac Type Severity Reaction Status Date / Time NSAIDS due to CKD Allergy Unknown n/a Uncoded 09/02/22 14:32 Home Medications Medication Instructions Recorded Confirmed Last Taken Type carvedilol 3.125 mg tablet 3.125 mg PO BID 07/02/20 10/11/22 10/14/22 History rosuvastatin 10 mg tablet 10 mg PO DAILY 07/02/20 10/11/22 Unknown History glipizide 5 mg tablet 5 mg PO BID 09/25/20 10/11/22 Unknown History blood sugar diagnostic #10 ea 12/18/20 09/08/22 Unknown History ferrous sulfate 325 mg (65 mg 325 mg PO DAILY 12/18/20 10/11/22 Unknown History iron) tablet,delayed release lactulose 10 gram/15 mL oral 15 ml PO DAILY PRN Constipation 12/18/20 10/11/22 Unknown History solution lancets 28 gauge #100 ea 12/18/20 09/08/22 Unknown History polyethylene glycol 3350 17 17 g PO BID PRN Constipation 12/18/20 10/11/22 Unknown History gram/dose oral powder (Miralax) torsemide 20 mg tablet 60 mg PO BID 01/12/21 10/11/22 Unknown History metolazone 2.5 mg tablet 2.5 mg PO 3XW 03/01/21 10/11/22 Unknown History blood-glucose meter (FreeStyle #1 ea 04/02/21 09/08/22 Unknown History [place] Lite kit) insulin glargine 100 unit/mL (3 30 unit subcut BEDTIME 04/02/21 10/11/22 Unknown History mL) subcutaneous pen (Lantus Solostar U-100 Insulin) pen needle, diabetic 31 gauge x #1,200 ea 04/02/21 09/08/22 Unknown History 5/16 (BD Ultra-Fine Short Pen Needle) gabapentin 100 mg capsule 100 mg PO BID 05/30/22 10/11/22 Unknown History insulin aspart U-100 100 unit/mL 5 unit subcut TIDAC 05/30/22 10/11/22 Unknown History (3 mL) subcutaneous pen (Novolog FlexPen U-100 Insulin aspart) omeprazole 20 mg capsule,delayed 20 mg PO DAILY indegestion 05/30/22 10/11/22 10/14/22 History release albuterol sulfate 90 mcg/actuation 2 puff inhalation Q6H PRN wheezing 07/26/22 10/11/22 Unknown History aerosol inhaler (Ventolin HFA) amlodipine 2.5 mg tablet 2.5 mg PO QAM 07/26/22 10/11/22 10/14/22 History calcitriol 0.25 mcg capsule 0.25 mcg PO Q OTHER DAY 07/26/22 10/11/22 Unknown History lidocaine 5 % topical patch 1 patch topical DAILY 07/26/22 10/11/22 Unknown History Exam Airway Mallampati Class: II TM Dist: >3cm Neck ROM: Full Loose/Missing/Broken Teeth: Yes (missing many upper and lower teeth) Heart: [id number] Lungs: cta b/l Assessment and Plan Assessment Anesthesia Assessment: Anesthesia Plan Discussed Final Anesthetic Review Family History of Problems with Anesthesia: No History of Problems with Anesthesia: No NPO: Yes ASA Class: IV Final Preanesthetic Review: No Changes in Pt Med Stat, Meds/Allgs Chart Reviewed, Consent Obtained/Reviewed and Anes Risks/Benef Reviewed Patient Risk: High Procedure Risk: Intermediate Assessment/Block/Sedation in SS: Assess/Block/Sedation-SS Anesthetic Plan Anesthetic Plan: GA, MAC: and Agree w/ Assess. and Plan Disposition: Standard PACU
--- NOTE | 2022-10-14 11:14 | P.CONAN_ITS ---
[facility] Active Problems Active Problems: All Active Problems (Updated 09/15/22 @ 11:24 by Aurea Burton PA-C) Preop cardiovascular exam (Acute) Mediastinal mass (Acute) Pericardial effusion (Acute) Cough (Acute) Hemoptysis (Acute) Pleuritic chest pain (Acute) Normally functioning cardiac pacemaker present (Acute ~2006) Persistent atrial fibrillation (Acute) Atherosclerotic cardiovascular disease (Acute) Essential hypertension (Acute) Diabetes mellitus (Acute) GOOD (acute kidney injury) (Acute) History of CVA with residual deficit (Acute ~04/2005) SDH (subdural hematoma) (Acute) Osteoarthritis of right knee (Acute) Past Medical History Medical History Atherosclerotic cardiovascular disease Cough Diabetes mellitus Essential hypertension GERD (gastroesophageal reflux disease) Hemoptysis History of COVID-19 (~06/2020) History of CVA with residual deficit (~04/2005) Hyperlipidemia Kidney disease Normally functioning cardiac pacemaker present (~2006) Pacemaker (~2006) Persistent atrial fibrillation Pleuritic chest pain SDH (subdural hematoma) Family History Family History Father No problems noted. Mother No problems noted. Surgical History Surgical History History of craniotomy History of heart artery stent History of permanent cardiac pacemaker placement (~09/2006) Social History Social History Household Members: Family Housing: House Do you presently have visiting nurse or other home services: Yes Alcohol intake: unknown Patient Tobacco Use Status: Former Tobacco user Quit Date: >30 yrs ago Second Hand Smoke Exposure: No Use of substances other than those prescribed or required for medical reasons: No Are you DNR?: No Advance Directives: No Advance Directives Information Provided: Yes Advance Directives on File: No service: No Current occupational status: retired Meds Allergies Allergy/AdvReac Type Severity Reaction Status Date / Time NSAIDS due to CKD Allergy Unknown n/a Uncoded 09/02/22 14:32 Active Medications: Current Medications Lactated Ringer's (Lr) 1,000 mls @ 50 mls/hr IVCONT .Q20H LEYLA Home Medications Medication Instructions Recorded Confirmed Last Taken Type carvedilol 3.125 mg tablet 3.125 mg PO BID 07/02/20 10/11/22 10/14/22 History rosuvastatin 10 mg tablet 10 mg PO DAILY 07/02/20 10/11/22 Unknown History glipizide 5 mg tablet 5 mg PO BID 09/25/20 10/11/22 Unknown History blood sugar diagnostic #10 ea 12/18/20 09/08/22 Unknown History ferrous sulfate 325 mg (65 mg 325 mg PO DAILY 12/18/20 10/11/22 Unknown History iron) tablet,delayed release lactulose 10 gram/15 mL oral 15 ml PO DAILY PRN Constipation 12/18/20 10/11/22 Unknown History solution lancets 28 gauge #100 ea 12/18/20 09/08/22 Unknown History polyethylene glycol 3350 17 17 g PO BID PRN Constipation 12/18/20 10/11/22 Unknown History gram/dose oral powder (Miralax) torsemide 20 mg tablet 60 mg PO BID 01/12/21 10/11/22 Unknown History metolazone 2.5 mg tablet 2.5 mg PO 3XW 03/01/21 10/11/22 Unknown History blood-glucose meter (FreeStyle #1 ea 04/02/21 09/08/22 Unknown History [place] Lite kit) insulin glargine 100 unit/mL (3 30 unit subcut BEDTIME 04/02/21 10/11/22 Unknown History mL) subcutaneous pen (Lantus Solostar U-100 Insulin) pen needle, diabetic 31 gauge x #1,200 ea 04/02/21 09/08/22 Unknown History 5/16 (BD Ultra-Fine Short Pen Needle) gabapentin 100 mg capsule 100 mg PO BID 05/30/22 10/11/22 Unknown History insulin aspart U-100 100 unit/mL 5 unit subcut TIDAC 05/30/22 10/11/22 Unknown History (3 mL) subcutaneous pen (Novolog FlexPen U-100 Insulin aspart) omeprazole 20 mg capsule,delayed 20 mg PO DAILY indegestion 05/30/22 10/11/22 10/14/22 History release albuterol sulfate 90 mcg/actuation 2 puff inhalation Q6H PRN wheezing 07/26/22 10/11/22 Unknown History aerosol inhaler (Ventolin HFA) amlodipine 2.5 mg tablet 2.5 mg PO QAM 07/26/22 10/11/22 10/14/22 History calcitriol 0.25 mcg capsule 0.25 mcg PO Q OTHER DAY 07/26/22 10/11/22 Unknown History lidocaine 5 % topical patch 1 patch topical DAILY 07/26/22 10/11/22 Unknown Hi story Exam Exam Date and Time: October 14, 2022 1114 Height,Weight and Vital Signs: Height 5 ft 7 in Weight 72.575 kg Airway Mallampati Class: II TM Dist: >3cm Neck ROM: Full Heart: reg. Lungs: CTA Assessment and Plan Final Anesthetic Review ASA Class: III Final Preanesthetic Review: Meds/Allgs Chart Reviewed, Consent Obtained/Reviewed and Anes Risks/Benef Reviewed Patient Risk: Intermediate Procedure Risk: Intermediate Anesthetic Plan Anesthetic Plan: GA and MAC: Disposition: Standard PACU
[2022-10-14 11:19] VITALS: BP 151/72; PULSE 65; RESP 16; TEMP 36.4; O2SAT 100
[2022-10-14 11:20] LABS: Glucose, Whole Blood 116 mg/dL (60-115)
[2022-10-14 11:51] LABS: Anion Gap 14 (12-20); Blood Urea Nitrogen 54 mg/dL (9-16); Calcium 9.8 mg/dL (8.4-10.2); Carbon Dioxide 40 mmol/L (22-29); Chloride 92 mmol/L (96-108); Creatinine Clr Calc Pharmacy 24.5; Estimated Glomerular Filt Rate 29; Glucose Fasting 113 mg/dL (60-99); Potassium 3.7 mmol/L (3.3-5.1); Sodium 142 mmol/L (135-145)
--- NOTE | 2022-10-14 12:11 | MHC.SHP ---
Pre-Procedural Eval Section A Date of Service: 10/14/22 The patient is an INPATIENT: No Section B Chief Complaint: Encounter for checking and testing of cardiac pace Allergies: Allergies Allergy/AdvReac Type Severity Reaction Status Date / Time NSAIDS due to CKD Allergy Unknown n/a Uncoded 09/02/22 14:32 Plan I have reviewed the history and physical and performed a pertinent physical examination on my patient. No changes have occurred unless specified. Time Spent With Patient Time: Total time managing care of this patient today ____ minutes.
--- NOTE | 2022-10-14 14:03 | P.OP_ITS ---
Operative Note Operative Note Date of Service: 10/14/22 Narrative: Preoperative diagnosis: Pacemaker end of life Postoperative diagnosis: Same Operation: Single chamber pacemaker generator change Surgeon: Natalie Kinsey MD Anesthesia: Local with sedation Specimens: None EBL: Minimal Operative findings: The generator were removed was a Medtronic with serial number [id number]. In the ventricular lead threshold of 0.5 at 0.4 milliseconds with an impedance of 494 Ohms. Patient tolerated the procedure well. Operation in detail: The patient was brought the operating room, placed supine on the operative table, anesthesia monitoring devices were placed, and the pa tient was gently sedated. The left infraclavicular area was then prepped and draped in a standard sterile fashion and a time-out was performed confirming the correct patient, site, and procedure. After injection of local anesthetic, a 3 cm incision was made directly over the old pacemaker generator which was palpable. This was carried down with combination of sharp dissection and minimal electrocautery to open up the capsule at the generator was within. The generator was were then removed from its pocket and the lead was taken out of the receptacle and placed directly into the new generator. The lead was then tested and were working appropriately. The pocket was then copiously irrigated with antibiotic solution and the excess wire and generator were then placed back into the pocket. The wound was then closed with a deep running 3-0 Vicryl suture followed by running 3-0 Vicryl suture and Dermabond glue on the skin. Patient tolerated the procedure well. Patient was then awoken from anesthesia and brought to the recovery room in stable condition.
[2022-10-14 14:08] VITALS: BP 120/83; PULSE 59; RESP 16; TEMP 36.4; O2SAT 98
[2022-10-14 14:24] VITALS: BP 119/56; PULSE 60; RESP 16; TEMP 36.4; O2SAT 99
== END 2022-10-14 14:50 | disposition home or self-care (01) ==
PROVIDERS: Anesthesiology; PCP Internal Medicine Geriatric Medicine; Visit Provider Surgery
PROC: (CPT 33227; principal; 2022-10-14 12:00)
DX: Z45.010 Encounter for checking and testing of cardiac pacemaker pulse generator [battery] (principal); I48.19 Other persistent atrial fibrillation; I25.10 Atherosclerotic heart disease of native coronary artery without angina pectoris; Z95.5 Presence of coronary angioplasty implant and graft; I69.354 Hemiplegia and hemiparesis following cerebral infarction affecting left non-dominant side; I10 Essential (primary) hypertension; N17.9 Acute kidney failure, unspecified; E11.9 Type 2 diabetes mellitus without complications; Z79.4 Long term (current) use of insulin; Z79.01 Long term (current) use of anticoagulants; Z79.51 Long term (current) use of inhaled steroids; Z79.899 Other long term (current) drug therapy; Z88.8 Allergy status to other drugs, medicaments and biological substances; Z87.891 Personal history of nicotine dependence; Z86.16 Personal history of COVID-19
CPT/HCPCS: 33227; 36415; 80048; 82947; C1785; J0690; J2250; J2795; J3370

== ENCOUNTER 2022-11-24 12:15 | Outpatient (REF) | payer OTHER, SELFPAY ==
--- NOTE | ~2022-11-24 | XR_ITS ---
EXAMINATION: XR HAND, RIGHT CLINICAL INFORMATION: Pain and swelling. COMPARISON: Radiographs of the wrist from 10/04/2022 TECHNIQUE: PA, lateral, and oblique views of the right hand. FINDINGS: No acute abnormalities. The bones of the hand and wrist have normal alignment. The metacarpophalangeal joint spaces are maintained. No erosions or periostitis. No acute fracture or subluxation. Findings include osteophytes and narrowing of articular cartilage spaces at multiple interphalangeal joints, including moderate osteoarthritis of thumb interphalangeal joint, as noted on 10/04/2022. XR/XR hand RT min 3V IMPRESSION: * No acute osseous injury in the right hand. * There is mild and moderate osteoarthritic deformity at multiple interphalangeal joints.
--- NOTE | ~2022-11-24 | XR_ITS ---
EXAMINATION: XR WRIST, RIGHT CLINICAL INFORMATION: Pain and swelling. No injury. COMPARISON: 10/04/2022 TECHNIQUE: Four views of the right wrist. FINDINGS: Carpal bones are intact and have normal alignment. No erosions or periostitis. The joint spaces of the wrist are maintained. There is ulnar osteophyte formation at the mildly degenerated distal radioulnar joint. Again noted is mild osteoarthritis of the first carpometacarpal joint and old, small calcific densities at the radial aspect of this joint. The pronator quadratus fat stripe is maintained. No evidence of focal soft tissue swelling or radiopaque foreign body. XR/XR wrist RT min 3V IMPRESSION: * No acute abnormalities at the right wrist compared to 10/04/2022. * Mild osteoarthritis of the DRUJ and first carpometacarpal joint.
== END 2022-11-24 12:16 | disposition home or self-care (01) ==
LOC: HO.HHCX 12:15
PROVIDERS: Visit Provider Student in an Organized Health Care Education/Training Program
DX: M79.641 Pain in right hand (principal)
CPT/HCPCS: 73110; 73130

== ENCOUNTER 2022-12-15 09:37 | Outpatient (REF) | payer OTHER, SELFPAY ==
--- NOTE | ~2022-12-15 | XR_ITS ---
EXAMINATION: XR CERVICAL SPINE CLINICAL INFORMATION: Neck pain. COMPARISON: Atraumatic neck pain. TECHNIQUE: 3 views of the cervical spine were obtained. FINDINGS: There is straightening of the normal cervical lordosis with normal spinal alignment. The vertebral bodies are intact. Mild to moderate degenerative disc disease is seen most pronounced at C6-7. The odontoid process is intact. There is no acute fracture. The soft tissues are unremarkable. XR/XR cervical spine 3V IMPRESSION: 1. Straightening of the normal cervical lordosis may be secondary to positioning and/or muscle spasm. 2. Mild to moderate degenerative disc disease most pronounced at C6-7.
== END 2022-12-15 09:38 | disposition home or self-care (01) ==
LOC: HO.HHCX 09:37
PROVIDERS: Visit Provider Family Medicine
DX: M54.2 Cervicalgia (principal)
CPT/HCPCS: 72040

== ENCOUNTER 2022-12-26 12:24 | Outpatient (AMB) | payer OTHER, SELFPAY ==
[2022-12-26 12:41] VITALS: BP 150/62; PULSE 72; BMI 26.4
--- NOTE | 2022-12-26 12:41 | MHC.OFFVIS ---
Intake Vital Signs 12/26/22 12:41 Height 5 ft 7 in Weight 168 lb 13.985 oz BMI 26.4 BP 150/62 H Blood Pressure Location Lt brachial Position Sitting Pulse 72 Intake Visit Reasons: 4 month follow up e/ Medtronic device check Intake Note: 4 follow up High Risk Case Manager Required: No Accompanied by: Self / Same As Patient Allergies NSAIDS due to CKD Allergy (Unknown, Uncoded 12/26/22 12:42) n/a Medication List - Last Reconciled 12/26/22 by Jon Stuart MD acetaminophen ER 650 mg PO Q12H PRN albuterol sulfate 90 mcg/actuation (Ventolin HFA) 2 puffs inhalation Q6H PRN amlodipine 2.5 mg PO QAM apixaban (Eliquis) 2.5 mg PO BID 90 days blood sugar diagnostic As directed blood-glucose meter (FreeStyle [place] Lite kit) As directed calcitriol 0.25 mcg PO Q OTHER DAY carvedilol 3.125 mg PO BID ferrous sulfate 325 mg PO DAILY fluticasone propionate 50 mcg/actuation 2 sprays intranasal DAILY 30 days gabapentin 100 mg PO BID glipizide 5 mg PO BID insulin aspart U-100 (Novolog FlexPen U-100 Insulin aspart) 5 units subcut TIDAC insulin glargine (Lantus Solostar U-100 Insulin) 30 units subcut BEDTIME lactulose 15 mL PO DAILY PRN lancets As directed lidocaine 5% 1 patch topical DAILY metolazone 2.5 mg PO 3XW omeprazole 20 mg PO DAILY pen needle, diabetic (BD Ultra-Fine Short Pen Needle) As directed polyethylene glycol 3350 (Miralax) 17 grams PO BID PRN potassium chloride ER 20 mEq PO DAILY rosuvastatin 10 mg PO DAILY torsemide 60 mg PO BID HPI HPI Comments History of Present Illness Details Dk returns for follow-up regarding atrial fibrillation, coronary disease and other concerns. He used to live here, then moved to [place] for some time, then moved back here. He has a history of coronary artery disease and underwent cardiac catheterization in [place] following an abnormal stress test. This showed diffuse CAD and he underwent stenting of the diagonal. He also has a history of chronic atrial fibrillation on Eliquis. He has had a stroke around 2004. He also has a history of pacemaker placement from 2006 with generator change in 2013. Other issues include type 2 diabetes, hypertension, dyslipidemia, chronic kidney disease. One fall in the past that led to a subdural hematoma that required drainage. Apparently, anticoagulation was briefly on hold and then resumed based on [place] records. Recently, he underwent generator change for his pacemaker. Otherwise, no specific cardiac concerns. [facility] Medical History Atherosclerotic cardiovascular disease Cough Diabetes mellitus Essential hypertension GERD (gastroesophageal reflux disease) Hemoptysis History of COVID-19 (~06/2020) History of CVA with residual deficit (~04/2005) Hyperlipidemia Kidney disease Normally functioning cardiac pacemaker present (~2006) Pacemaker (~2006) Persistent atrial fibrillation Pleuritic chest pain SDH (subdural hematoma) Surgical History History of craniotomy History of heart artery stent History of permanent cardiac pacemaker placement (~09/2006) Family History Father No problems noted. Mother No problems noted. Social History Household Members: Family Housing: House Do you presently have visiting nurse or other home services: Yes Alcohol intake: unknown Patient Tobacco Use Status: Former Tobacco user Quit Date: >30 yrs ago Second Hand Smoke Exposure: No service: No Current occupational status: retired Review of Systems Const Denies weakness ENT Denies dizziness Card Denies chest pain, Denies chest pain with activity, Denies syncope, Denies rapid heart rate, Denies pedal edema, Denies edema, Denies leg edema, Denies lightheadedness, Denies palpitations, Denies dyspnea, Denies dyspnea on exertion and Denies orthopnea Resp Denies cough, Denies dyspnea and Denies dyspnea on exertion GI Denies hematochezia and Denies change in stool character Musc Denies abnormal gait, Denies muscle cramps, Denies muscle weakness, Denies numbness, Denies radiating pain into limb and Denies tingling Neuro Denies abnormal gait, Denies dizziness, Denies syncope, Denies numbness, Denies tingling and Denies weakness Endo Denies palpitations Physical Exam Vital Signs: Last Vital Signs Pulse 72 12/26/22 12:41 BP 150/62 H 12/26/22 12:41 BMI result Body Mass Index 26.4 Const General: comfortable and no acute distress Orientation/consciousness: patient oriented x3 HEENT Other: Unremarkable Head: Yes normal to inspection Neck Neck: Yes normal visual inspection Chest Chest palpation & inspection: normal inspection of the chest Resp Auscultation: clear to auscultation bilaterally Cardio Palpation: normal PMI Heart sounds: S1 normal heart sound present, S2 normal heart sound present, no gallops, no murmurs and no rubs GI Palpation (GI): Soft to palpation Back/Spine/Pelvis Other: unremarkable Skin General skin exam: no rashes or lesions noted Neuro General: patient oriented x3 Extrem General: Yes normal to inspection Psych Mental Status: mental status grossly normal Office Procedures Cardiac Device Check Cardiac Device Check Details: Pacemaker interrogated today. Programmed in [facility]. Single-chamber device. Battery status more than 13 years. Ventricular pacing 99.9%. Normal lead parameters. Overall, normal device function. [id number] Cardiac Device Check, leadless/single lead pacemaker Procedure code (CPT) selection complete Assessment & Plan Assessment & Plan (1) Atherosclerotic cardiovascular disease: Code(s): I25.10 - Atherosclerotic heart disease of [place] coronary artery without angina pectoris Plan: Cardiac [id number]-status post diagonal stent, KRISTIE; nonobstructive disease LAD; moderate small-vessel disease in circumflex and RCA to be medically managed Continue beta-blockers and statins. He has a history of subdural bleed. Hence no need for antiplatelet agents in addition to Eliquis. Last LDL cholesterol 59 mg/dL. Overall, remains stable. (2) Persistent atrial fibrillation: Code(s): I48.19 - Other persistent atrial fibrillation Plan: Continue beta-blockers and Eliquis. (3) Pericardial effusion: Code(s): I31.3 - Pericardial effusion (noninflammatory) Plan: Small pericardial effusion thought to be related to renal insufficiency. No intervention required. (4) Essential hypertension: Code(s): I10 - Essential (primary) hypertension Plan: Slightly high blood pressure today. In the past, has been up and down. On carvedilol, amlodipine. (5) SDH (subdural hematoma): Code(s): S06.5X9A - Traumatic subdural hemorrhage with loss of consciousness of unspecified duration, initial encounter Plan: No recurrent issues. (6) Normally functioning cardiac pacemaker present: Onset Date: ~2006 Comment: (Medtronic SCPP - placed 2006, generator change 2013) Code(s): Z95.0 - Presence of cardiac pacemaker Plan: Status post generator change 09/2022.. Function normally. Coding Level of Care Code Est Pt Level 4 (07270) Diagnoses Atherosclerotic cardiovascular disease I25.10 Persistent atrial fibrillation I48.19 Pericardial effusion I31.3 Essential hypertension I10 SDH (subdural hematoma) S06.5X9A Normally functioning cardiac pacemaker present Z95.0 CPT Codes Cardiac Device Check - Cardiac Device 1: [id number] Cardiac Device Check, leadless/single lead pacemaker ([id number])
== END 2022-12-26 13:03 | disposition home or self-care (01) ==
PROVIDERS: Visit Provider Internal Medicine
DX: I25.10 Atherosclerotic heart disease of native coronary artery without angina pectoris (principal); I48.19 Other persistent atrial fibrillation; I31.39 Other pericardial effusion (noninflammatory); I10 Essential (primary) hypertension; S06.5X9A Traumatic subdural hemorrhage with loss of consciousness of unspecified duration, initial encounter; Z95.0 Presence of cardiac pacemaker
CPT/HCPCS: 93279; 99214

== ENCOUNTER → 2022-12-26 12:24 | Outpatient (BNVA) | payer OTHER, SELFPAY | PROVIDERS: Visit Provider Internal Medicine | DX: I25.10 Atherosclerotic heart disease of native coronary artery without angina pectoris (principal); I48.19 Other persistent atrial fibrillation; I10 Essential (primary) hypertension; I31.39 Other pericardial effusion (noninflammatory); S06.5X9A Traumatic subdural hemorrhage with loss of consciousness of unspecified duration, initial encounter; Z98.890 Other specified postprocedural states; Z95.5 Presence of coronary angioplasty implant and graft; Z79.01 Long term (current) use of anticoagulants; Z45.018 Encounter for adjustment and management of other part of cardiac pacemaker | CPT/HCPCS: 99212 ==

== ENCOUNTER 2022-12-28 11:19 | Outpatient (REF) | payer OTHER, SELFPAY ==
[2022-12-28 14:05] LABS: Estimated Average Glucose 140 mg/dL; Hemoglobin A1c % 6.5 %
== END 2022-12-28 11:20 | disposition home or self-care (01) ==
LOC: HO.CHCLDS 11:19
PROVIDERS: Visit Provider Internal Medicine Geriatric Medicine
DX: E11.8 Type 2 diabetes mellitus with unspecified complications (principal)
CPT/HCPCS: 36415; 83036

== ENCOUNTER → 2023-02-14 23:59 | Outpatient (BNV) | payer OTHER, SELFPAY ==
--- NOTE | 2023-02-26 16:54 | MHC.OFFVIS ---
Intake Intake Visit Reasons: Remote Device Check- Medtronic Allergies NSAIDS due to CKD Allergy (Unknown, Uncoded 12/26/22 12:42) n/a [facility] Medical History Atherosclerotic cardiovascular disease Cough Diabetes mellitus Essential hypertension GERD (gastroesophageal reflux disease) Hemoptysis History of COVID-19 (~06/2020) History of CVA with residual deficit (~04/2005) Hyperlipidemia Kidney disease Normally functioning cardiac pacemaker present (~2006) Pacemaker (~2006) Persistent atrial fibrillation Pleuritic chest pain SDH (subdural hematoma) Surgical History History of craniotomy History of heart artery stent History of permanent cardiac pacemaker placement (~09/2006) Family History Father No problems noted. Mother No problems noted. Social History Household Members: Family Housing: House Do you presently have visiting nurse or other home services: Yes Alcohol intake: unknown Patient Tobacco Use Status: Former Tobacco user Quit Date: >30 yrs ago Second Hand Smoke Exposure: No service: No Current occupational status: retired Office Procedures Cardiac Device Check Cardiac Device Check Details: Date of service- 02/14/2023 ; Battery life >13 years; normal lead parameters; PROGRAM MANAGEMENT PROFESSIONAL >99%; no significant arrhythmias. Overall normal device function. [id number] Cardiac Device Interrogation, pacemaker Procedure code (CPT) selection complete Assessment & Plan Assessment & Plan (1) Persistent atrial fibrillation: Code(s): I48.19 - Other persistent atrial fibrillation Coding Level of Care Code Procedure Only Diagnoses Persistent atrial fibrillation I48.19 CPT Codes Cardiac Device Check - Cardiac Device 12: [id number] Cardiac Device Interrogation, pacemaker ([id number])
== END ==
PROVIDERS: PCP Internal Medicine Geriatric Medicine; Visit Provider Internal Medicine
DX: I48.19 Other persistent atrial fibrillation (principal); Z95.0 Presence of cardiac pacemaker
CPT/HCPCS: 93294

== ENCOUNTER 2023-04-06 14:34 | Outpatient (REF) | payer OTHER, SELFPAY ==
[2023-04-06 15:57] LABS: MANUAL DIFF FLAG NO
[2023-04-06 16:04] LABS: Appearance Urine Clear; Color Urine Yellow; Glucose Urine UA Negative (Negative); Leukocyte Esterase Urine Negative (Negative); Nitrite Urine Negative (Negative); UMIC TRIGGER UACC YES; Urine Blood Small (1+) (Negative); Urine Ketones Negative (Negative); Urine Protein Negative (Neg-Trace)
[2023-04-06 16:08] LABS: Basophils Absolute Auto 0.1 X10*3/uL (0.0-0.2); Basophils Percent Auto 0.2 % (0-2); Hemoglobin 11.1 g/dl (14.0-18.0); Imm Gran Abs Auto 0.19 X10*3/uL (0.00-0.03); Imm Gran Pct Auto 0.9 % (0.0-0.4); Lymphocytes Absolute Auto 3.4 X10*3/uL (1.2-4.9); Lymphocytes Percent Auto 15.2 % (20-40); Mean Corpuscular HGB Conc 32.6 g/dl (31.0-36.0); Mean Corpuscular Hemoglobin 28.3 pg (27.0-33.0); Mean Corpuscular Volume 86.7 fL (80.0-98.0); Mean Platelet Volume 9.1 fL (9.4-12.4); Monocytes Absolute Auto 1.5 X10*3/uL (0.1-1.2); Monocytes Percent Auto 6.5 % (2-11); Neutrophils Absolute Auto 17.1 x10*3/uL (2.0-8.3); Neutrophils Percent Auto 77.2 % (45-73); Platelet Count 223 X10*3/uL (160-400); Red Blood Count 3.92 X10*6/uL (4.60-5.80); Red Cell Distribution Width 15.5 % (11.0-16.0); White Blood Count 22.2 X10*3/uL (4.8-10.8)
[2023-04-06 16:12] LABS: Bacteria Urine None Seen (None Seen); Hyaline Casts Urine 0-2 /LPF (0-2); RBC Urine 0-2 /HPF (0-2); Squamous Epithelial Cell Urine 0-2 /HPF (0-2); WBC Urine 0-5 /HPF (0-5)
[2023-04-06 16:18] LABS: Alanine Aminotransferase 20 U/L (0-40); Albumin Level 3.6 g/dL (3.5-5.0); Alkaline Phosphatase 73 U/L (39-117); Anion Gap 19 (12-20); Aspartate Amino Transferase 60 U/L (5-37); Bilirubin Total 1.8 mg/dL (0.0-1.0); Blood Urea Nitrogen 58 mg/dL (9-16); Calcium 9.2 mg/dL (8.4-10.2); Carbon Dioxide 30 mmol/L (22-29); Chloride 90 mmol/L (96-108); Estimated Glomerular Filt Rate 27; Glucose Random 179 mg/dL (60-115); Potassium 3.2 mmol/L (3.3-5.1); Sodium 136 mmol/L (135-145); Total Protein 6.9 g/dL (6.5-8.0)
[2023-04-06 16:35] LABS: TSH reflex Free T4 0.47 uIU/mL (0.32-4.0)
[2023-04-11 00:44] LABS: VITAMIN D (1,25 OH) D3 16 pg/mL; Vit D (1,25-Dihydroxy) Total 33 pg/mL (18-72); Vitamin D (1,25 OH) D2 17 pg/mL
== END 2023-04-06 14:35 | disposition home or self-care (01) ==
LOC: HO.HHCL 14:34
PROVIDERS: Visit Provider Student in an Organized Health Care Education/Training Program
DX: R29.6 Repeated falls (principal); N18.32 Chronic kidney disease, stage 3b; Z13.29 Encounter for screening for other suspected endocrine disorder; Z13.21 Encounter for screening for nutritional disorder
CPT/HCPCS: 36415; 80053; 81001; 82652; 84443; 85025; 87086

== ENCOUNTER 2023-04-12 10:24 | Outpatient (REF) | payer OTHER, SELFPAY ==
[2023-04-12 11:59] LABS: MANUAL DIFF FLAG NO
[2023-04-12 12:08] LABS: Basophils Absolute Auto 0.1 X10*3/uL (0.0-0.2); Basophils Percent Auto 0.4 % (0-2); Eosinophils Absolute Auto 0.1 X10*3/uL (0.0-0.4); Eosinophils Percent Auto 0.3 % (0-4); Hemoglobin 9.7 g/dl (14.0-18.0); Imm Gran Abs Auto 0.19 X10*3/uL (0.00-0.03); Imm Gran Pct Auto 1.2 % (0.0-0.4); Lymphocytes Percent Auto 12.7 % (20-40); Mean Corpuscular HGB Conc 32.3 g/dl (31.0-36.0); Mean Corpuscular Hemoglobin 28.3 pg (27.0-33.0); Mean Corpuscular Volume 87.5 fL (80.0-98.0); Mean Platelet Volume 9.7 fL (9.4-12.4); Monocytes Absolute Auto 0.8 X10*3/uL (0.1-1.2); Monocytes Percent Auto 5.3 % (2-11); Neutrophils Absolute Auto 12.4 x10*3/uL (2.0-8.3); Neutrophils Percent Auto 80.1 % (45-73); Platelet Count 261 X10*3/uL (160-400); Red Blood Count 3.43 X10*6/uL (4.60-5.80); Red Cell Distribution Width 15.9 % (11.0-16.0); White Blood Count 15.5 X10*3/uL (4.8-10.8)
[2023-04-12 12:50] LABS: Alanine Aminotransferase 14 U/L (0-40); Albumin Level 3.2 g/dL (3.5-5.0); Alkaline Phosphatase 81 U/L (39-117); Anion Gap 16 (12-20); Aspartate Amino Transferase 24 U/L (5-37); Blood Urea Nitrogen 35 mg/dL (9-16); Calcium 8.8 mg/dL (8.4-10.2); Carbon Dioxide 29 mmol/L (22-29); Chloride 92 mmol/L (96-108); Estimated Glomerular Filt Rate 29; Glucose Random 205 mg/dL (60-115); Potassium 3.3 mmol/L (3.3-5.1); Sodium 134 mmol/L (135-145); Total Protein 6.6 g/dL (6.5-8.0)
== END 2023-04-12 10:25 | disposition home or self-care (01) ==
LOC: HO.HHCL 10:24
PROVIDERS: Visit Provider Student in an Organized Health Care Education/Training Program
DX: R29.6 Repeated falls (principal)
CPT/HCPCS: 36415; 80053; 85025

== ENCOUNTER 2023-04-12 12:32 | Outpatient (REF) | payer OTHER, SELFPAY ==
--- NOTE | ~2023-04-12 | CT_ITS ---
EXAMINATION: CT HEAD WITHOUT CONTRAST CLINICAL INFORMATION: Recurrent falls. COMPARISON: 04/26/2019. TECHNIQUE: Contiguous axial imaging was performed from the skull base to vertex without intravenous administration of contrast. This CT examination was performed using dose optimization techniques as appropriate, variously including the following: *Automated exposure control *Adjustment of mA and/or kV according to patient size (this includes techniques or standardized protocols for targeted exams where dose is matched to indication/reason for exam; i.e. extremities or head) *Use of iterative reconstruction technique DLP: 1107 and mGy-cm FINDINGS: There is cerebral volume loss with prominence of the lateral and the third ventricles. The cortical sulci are widened appropriately. The fourth ventricle and basal cisterns are normally outlined. There is moderate bilateral periventricular and central white matter diminished attenuation. There is no acute territorial defect, hemorrhage or midline shift. The extra-axial spaces are unremarkable. Calvarium: There has been a prior right parietal craniotomy. The calvarium is otherwise intact. Maxillofacial sinuses and mastoids: Clear as visualized.. CT/CT head/brain wo IV con IMPRESSION: Cerebral volume loss and moderate bilateral periventricular and central white matter diminished attenuation which is nonspecific but likely to represent microvascular disease. There is no acute intracranial abnormality.
== END 2023-04-12 12:33 | disposition home or self-care (01) ==
LOC: HO.CT 12:32
PROVIDERS: Absent Provider Internal Medicine Geriatric Medicine; PCP Internal Medicine Geriatric Medicine; Visit Provider Student in an Organized Health Care Education/Training Program
DX: R29.6 Repeated falls (principal)
CPT/HCPCS: 70450

== ENCOUNTER 2023-05-15 20:05 | Inpatient (IN) | payer OTHER, SELFPAY ==
--- NOTE | ~2023-05-15 | XR_ITS ---
EXAMINATION: XR CHEST CLINICAL INFORMATION: Leg swelling. COMPARISON: None available. TECHNIQUE: Frontal view of the chest was obtained. FINDINGS: The lungs are well-expanded and clear. The heart size enlarged. Pulmonary vascularity is normal. Is solitary pacer electrode tip is in right ventricle. No gross bony abnormality. XR/XR chest 1V IMPRESSION: Mild cardiomegaly. The lungs are clear
--- NOTE | ~2023-05-15 | CT_ITS ---
EXAMINATION: CT CHEST WITHOUT CONTRAST CLINICAL INFORMATION: Assess anterior mediastinal mass COMPARISON: 08/15/2022 TECHNIQUE: Multidetector volumetric CT imaging of the chest was done. Axial MIP volume rendering provided. Sagittal and coronal reformatted images were obtained. This CT examination was performed using dose optimization techniques as appropriate, variously including the following: *Automated exposure control *Adjustment of mA and/or kV according to patient size (this includes techniques or standardized protocols for targeted exams where dose is matched to indication/reason for exam; i.e. extremities or head) *Use of iterative reconstruction technique DLP: 235 mGy-cm FINDINGS: LUNGS: Mild subsegmental atelectasis bilaterally without additional consolidation. MEDIASTINUM: The visualized thyroid gland is unremarkable. Anterior mediastinal mass measures approximately 4.4 x 2.9 cm on image 17/61 previously 3.2 x 2.4 cm measured in similar fashion on 08/15/2022. Scattered mediastinal lymph nodes, measuring up to the upper limits of normal in size and the right paratracheal region. Redemonstrated cardiomegaly with pericardial effusion adjacent to the right atrium. Scattered calcification along the aorta. Left-sided pacemaker lead tips extend to the right ventricle. CORONARY ARTERY CALCIFICATION: Present PLEURA: No pneumothorax or pleural effusion. AXILLA: Multiple mildly prominent bilateral axillary lymph nodes are similar to prior. UPPER ABDOMEN: Visualized spleen is enlarged, measuring up to 14.2 cm in the axial plane. OSSEOUS STRUCTURES: Degenerative changes are noted in the spine. CT/CT chest wo IV con IMPRESSION: 1. Anterior mediastinal mass measuring up to 4.4 cm, increased in size from 08/15/2022. 2. Redemonstrated cardiomegaly with pericardial effusion adjacent to the right atrium. 3. Splenomegaly. 4. Mildly prominent bilateral axillary lymph nodes, similar to prior.
[2023-05-15 20:42] VITALS: BP 156/67; PULSE 78; RESP 16; TEMP 36.7; O2SAT 98; BMI 28.3
--- NOTE | 2023-05-15 20:43 | ED_ITS ---
HPI - General Adult General Chief complaint: General Medical Stated complaint: bilateral leg swelling Time Seen by Provider: 05/15/23 22:03 Source: patient Mode of arrival: ambulatory Limitations: no limitations History of Present Illness HPI narrative: Patient is 82 years old with history of atrial fibrillation diabetes, hypertension, CVA , on pacemaker on torsemide and Eliquis comes here for increased leg swelling for last 1 week feel that he is not urinating as much as used to be no shortness of breath no chest pain Related Data Home Medications Medication Instructions Recorded Confirmed carvedilol 3.125 mg tablet 3.125 mg PO BID 07/02/20 12/26/22 rosuvastatin 10 mg tablet 10 mg PO DAILY 07/02/20 12/26/22 blood sugar diagnostic #10 ea 12/18/20 12/26/22 ferrous sulfate 325 mg (65 mg 325 mg PO DAILY 12/18/20 12/26/22 iron) tablet,delayed release lancets 28 gauge #100 ea 12/18/20 12/26/22 metolazone 2.5 mg tablet 2.5 mg PO MOWEFR 03/01/21 12/26/22 blood-glucose meter (FreeStyle #1 ea 04/02/21 12/26/22 [place] Lite kit) pen needle, diabetic 31 gauge x #1,200 ea 04/02/21 12/26/2211/01 (BD Ultra-Fine Short Pen Needle) insulin aspart U-100 100 unit/mL 10 unit subcut TIDAC 05/30/22 12/26/22 (3 mL) subcutaneous pen (Novolog FlexPen U-100 Insulin aspart) omeprazole 20 mg capsule,delayed 20 mg PO DAILY indegestion 05/30/22 12/26/22 release albuterol sulfate 90 mcg/actuation 2 puff inhalation Q6H PRN wheezing 07/26/22 12/26/22 aerosol inhaler (Ventolin HFA) amlodipine 2.5 mg tablet 2.5 mg PO QAM 07/26/22 12/26/22 calcitriol 0.25 mcg capsule 0.25 mcg PO Q OTHER DAY 07/26/22 12/26/22 gabapentin 100 mg capsule 100 mg PO QPM 05/16/23 insulin degludec 100 unit/mL (3 26 unit subcut QPM 05/16/23 mL) subcutaneous pen (Tresiba FlexTouch U-100 insulin) spironolactone 25 mg tablet 12.5 mg PO QAM 05/16/23 torsemide 20 mg tablet 60 mg PO DAILY 05/16/23 Previous Rx's Medication Instructions Recorded acetaminophen 650 mg 650 mg PO Q12H PRN for pain #60 07/18/22 tablet,extended release tabs fluticasone propionate 50 2 spray intranasal DAILY 30 days 09/04/22 mcg/actuation nasal #15.8 mL spray,suspension apixaban 2.5 mg tablet (Eliquis) 2.5 mg PO BID #180 tabs 02/15/23 Allergies Allergy/AdvReac Type Severity Reaction Status Date / Time NSAIDS due to CKD Allergy Unknown n/a Uncoded 12/26/22 12:42 Review of Systems 2 Review of Systems: Yes all other systems are reviewed and are negative [facility] Past Medical History Medical History Kidney disease Pleuritic chest pain Cough Hemoptysis History of CVA with residual deficit (~04/2005) History of COVID-19 (~06/2020) SDH (subdural hematoma) Essential hypertension Normally functioning cardiac pacemaker present (~2006) Atherosclerotic cardiovascular disease Hyperlipidemia GERD (gastroesophageal reflux disease) Pacemaker (~2006) Diabetes mellitus Persistent atrial fibrillation Surgical History History of heart artery stent History of craniotomy History of permanent cardiac pacemaker placement (~09/2006) Family History Family History Father No problems noted. Mother No problems noted. Social History Household Members: Family Housing: House Do you presently have visiting nurse or other home services: Yes Alcohol intake: unknown Patient Tobacco Use Status: Former Tobacco user Quit Date: >30 yrs ago Smoked in Last 30 Days: No Second Hand Smoke Exposure: No Advance Directives: No Advance Directives Information Provided: Yes Nutrition Risks: No Nutritional Risk service: No Current occupational status: retired Physical Exam ED Vital Signs: Vital Signs - 24 hr 05/15/23 20:42 05/15/23 22:53 Temperature 98.0 F 98.0 F Pulse Rate 78 64 Respiratory Rate 16 17 Blood Pressure 156/67 H 138/52 L Pulse Oximetry 98 Oxygen Delivery Method Room Air BMI result Body Mass Index 28.3 Appearance: Alert. Oriented X3. No acute distress. Eyes: No pallor/icterus ENT: Pharynx normal. Oral Mucosa moist Neck: Normal inspection. Neck supple. CVS: Normal heart rate and rhythm. Pulses normal. Respiratory: No respiratory distress. Equal air entry bilateral, few rales at the bases Abdomen: Soft and nontender. Bowel sounds are present, Skin: Skin warm and dry. Normal skin color. Normal skin turgor. Extremities: 4+ lower extremity edema R>L. No calf tenderness Neuro: Oriented X 3. Left-sided residual weakness Course Course Course Narrative: This is a rapid medical exam. Deferred additional HPI, ROS, PE to primary provider. 82 yo male with history of afib on AC therapy here with complaints of bilateral lower extremity swelling x 1 week, left hand swelling. NO SOB/CP Will obtain labs, EKG, CXR VSS Medications Administered Generic Name Dose Route Start Last Admin Trade Name Freq PRN Reason Stop Dose Admin Insulin Human Lispro 0 unit 05/16/23 07:30 05/16/23 07:12 Insulin Lispro 100 Unit/Ml 3 Ml Vial SUBCUT [facility] Protocol Sodium Chloride 3 ml 05/16/23 00:00 05/16/23 07:40 0.9 % Sodium Chloride Flush 3 Ml Syringe IVFLUSH 3 ml QSHIFT [facility] Administration Discontinued Medications Generic Name Dose Route Start Last Admin Trade Name Freq PRN Reason Stop Dose Admin Furosemide 40 mg 05/15/23 22:39 05/15/23 22:55 Furosemide 40 Mg/4 Ml Vial IVPUSH 05/15/23 22:40 40 mg ONCE ONE Administration Protocol Potassium Chloride 10 meq in 100 mls @ 100 mls/hr 05/15/23 22:40 05/15/23 23:59 Potassium Chloride/H20 IV 05/15/23 23:39 Infused ONCE ONE Infusion Potassium Chloride 20 meq 05/15/23 22:39 05/15/23 22:54 Potassium Chloride Er 20 Meq Tab.Er.Prt PO 05/15/23 22:40 20 meq ONCE ONE Administration Potassium Chloride 40 meq 05/16/23 07:34 05/16/23 07:40 Potassium Chloride Er 20 Meq Tab.Er.Prt PO 05/16/23 07:35 40 meq ONCE ONE Administration Medical Decision Making Medical Decision Making [facility] Narrative: Patient has significant edema on diuretics will start patient on IV diuresis admit patient already on Eliquis unlikely DVT Differential Diagnosis Differential Diagnoses: The differential diagnosis associated with the presentation includes Dependent leg edema/CHF/DVT Admission/Observation Consideration of admission/observation: Escalation of care including admission/observation considered Consult Healthcare Provider Management of the patient was discussed with: Hospitalist Lab Data [facility] Lab Attestation statement: I reviewed the patient's lab results. 05/15/23 21:27 05/16/23 04:58 Labs: Lab Results 05/15/23 05/15/23 Range/Units 21: 21:45 WBC 8.1 (4.8-10.8) X10*3/uL RBC 3.14 L (4.60-5.80) X10*6/uL Hgb 9.0 L (14.0-18.0) g/dl Hct 28.2 L (42.0-52.0) % MCV 89.8 (80.0-98.0) fL MCH 28.7 (27.0-33.0) pg MCHC 31.9 (31.0-36.0) g/dl RDW 18.0 H (11.0-16.0) % Plt Count 166 D (160-400) X10*3/uL MPV 9.3 L (9.4-12.4) fL Immature Gran % (Auto) 0.9 H (0.0-0.4) % Neut % (Auto) 72.6 (45-73) % Lymph % (Auto) 13.9 L (20-40) % [place] % (Auto) 9.9 (2-11) % Eos % (Auto) 2.6 (0-4) % Baso % (Auto) 0.1 (0-2) % Lymph # (Auto) 1.1 L (1.2-4.9) X10*3/uL [place] # (Auto) 0.8 (0.1-1.2) X10*3/uL Eos # (Auto) 0.2 (0.0-0.4) X10*3/uL Baso # (Auto) 0.0 (0.0-0.2) X10*3/uL Abs Immat Gran (auto) 0.07 H (0.00-0.03) X10*3/uL Absolute Neuts (auto) 5.9 (2.0-8.3) x10*3/uL Absolute Nucleated RBC 0.000 (0.0-0.012) X10*3/uL Nucleated RBC % (auto) 0.0 (0.0-0.2) /100WBC PT 18.9 H (11.1-13.3) SEC INR 1.6 H (0.9-1.1) Sodium 142 (135-145) mmol/L Potassium 3.1 L (3.3-5.1) mmol/L Chloride 104 (96-108) mmol/L Carbon Dioxide 30 H (22-29) mmol/L Anion Gap 11 L (12-20) BUN 34 H (9-16) mg/dL Creatinine 1.78 H (0.5-1.4) mg/dL Estim Creat Clear Calc 33.3 Estimated GFR 37 Random Glucose 119 H (60-115) mg/dL Calcium 8.6 (8.4-10.2) mg/dL Magnesium 1.9 (1.6-2.6) mg/dL Total Bilirubin 0.6 (0.0-1.0) mg/dL Direct Bilirubin 0.3 (0.0-0.5) mg/dL AST 26 (5-37) U/L ALT 12 (0-40) U/L Alkaline Phosphatase 62 (39-117) U/L Troponin I High Sens 19.5 (<3.5-35.0) ng/L B-Natriuretic Peptide 53 (<100) pg/mL Total Protein 6.1 L (6.5-8.0) g/dL Albumin 3.1 L (3.5-5.0) g/dL Independent Interpretation I performed an independent interpretation of an: EKG and CT Scan Interpretation: Ventricularly paced rhythm rate 60 beats per minute no acute ST changes no acute ischemic Radiology Impression Discussion of test interpretation with radiology: I discussed test interpretation with the radiologist Discharge Plan Discharge Clinical Impression: Leg edema, CKD (chronic kidney disease) Patient Disposition: Admitted As Inpatient
--- NOTE | 2023-05-15 20:45 | ECG_ITS ---
Test Reason : LEG SWELLING Blood Pressure : / mmHG Vent. Rate : 060 BPM Atrial Rate : 067 BPM P-R Int : 000 ms QRS Dur : 194 ms QT Int : 516 ms P-R-T Axes : 000 -79 081 degrees QTc Int : 516 ms Ventricular-paced rhythm Abnormal ECG When compared with ECG of 08-SEP-2022 10:30, Vent. rate has decreased BY 3 BPM Referred By: Rosa Mg Electronically Signed By:JUAN MCGILL MD
[2023-05-15 21:32] LABS: MANUAL DIFF FLAG NO
[2023-05-15 21:43] LABS: Basophils Percent Auto 0.1 % (0-2); Eosinophils Absolute Auto 0.2 X10*3/uL (0.0-0.4); Eosinophils Percent Auto 2.6 % (0-4); Hematocrit 28.2 % (42.0-52.0); Imm Gran Abs Auto 0.07 X10*3/uL (0.00-0.03); Imm Gran Pct Auto 0.9 % (0.0-0.4); Lymphocytes Absolute Auto 1.1 X10*3/uL (1.2-4.9); Lymphocytes Percent Auto 13.9 % (20-40); Mean Corpuscular HGB Conc 31.9 g/dl (31.0-36.0); Mean Corpuscular Hemoglobin 28.7 pg (27.0-33.0); Mean Corpuscular Volume 89.8 fL (80.0-98.0); Mean Platelet Volume 9.3 fL (9.4-12.4); Monocytes Absolute Auto 0.8 X10*3/uL (0.1-1.2); Monocytes Percent Auto 9.9 % (2-11); Neutrophils Absolute Auto 5.9 x10*3/uL (2.0-8.3); Neutrophils Percent Auto 72.6 % (45-73); Platelet Count 166 X10*3/uL (160-400); Red Blood Count 3.14 X10*6/uL (4.60-5.80); White Blood Count 8.1 X10*3/uL (4.8-10.8)
[2023-05-15 21:47] LABS: Alanine Aminotransferase 12 U/L (0-40); Albumin Level 3.1 g/dL (3.5-5.0); Alkaline Phosphatase 62 U/L (39-117); Anion Gap 11 (12-20); Aspartate Amino Transferase 26 U/L (5-37); Bilirubin Direct 0.3 mg/dL (0.0-0.5); Bilirubin Total 0.6 mg/dL (0.0-1.0); Blood Urea Nitrogen 34 mg/dL (9-16); Calcium 8.6 mg/dL (8.4-10.2); Carbon Dioxide 30 mmol/L (22-29); Chloride 104 mmol/L (96-108); Creatinine Clr Calc Pharmacy 33.3; Estimated Glomerular Filt Rate 37; Glucose Random 119 mg/dL (60-115); Magnesium 1.9 mg/dL (1.6-2.6); Potassium 3.1 mmol/L (3.3-5.1); Sodium 142 mmol/L (135-145); Total Protein 6.1 g/dL (6.5-8.0)
[2023-05-15 21:53] LABS: Troponin-I High Sensitivity 19.5 ng/L (<3.5-35.0)
[2023-05-15 21:59] LABS: B Type Natriuretic Peptide 53 pg/mL (<100)
[2023-05-15 22:15] LABS: INTERNATIONAL NORM RATIO 1.6 (0.9-1.1); Prothrombin Time 18.9 SEC (11.1-13.3)
[2023-05-15 22:53] VITALS: BP 138/52; PULSE 64; RESP 17; TEMP 36.7
[2023-05-15] MEDS: Potassium Chloride ER 20 MEQ TAB.ER.PRT PO (22:54)
[2023-05-15] MEDS: Potassium Chloride/H20 10 MEQ/100 ML PIGGYBACK 100 MEQ IV (22:54)
[2023-05-15] MEDS: Furosemide 40 MG/4 ML VIAL IVPUSH (22:55)
[2023-05-16] VITALS (8 sets, daily range): BP systolic 103–154; BP diastolic 49–70; PULSE 60–64; RESP 12–20; TEMP 36.6–36.7; O2SAT 96–99
[2023-05-16 00:27] LABS: Glucose, Whole Blood 84 mg/dL (60-115)
--- NOTE | 2023-05-16 03:16 | PC.NURSE ---
pt accidently pulled out iv while asleep, another one placed
--- NOTE | 2023-05-16 05:09 | P.HPHOSP_ITS ---
History of Present Illness Date of Service: 05/15/23 Chief Complaint: Swelling in the legs L >R 82 year old male with history of permanent Atrial fibrillation, s/p pace maker, ho CVA, Diabetes mellitus, HTN, HLD and history of anterior mediastinal mass that has been followed by throacic surgery but he opted not to due anything about it. The last CT of the chest from July 2022 showed an anterior superior mediastinal mass with no chage in size compare a CT of a year earlier. His presenting with a week of swelling in the leg with the left much greater than the left, also has swelling of the entire left arm particular at the elbow, and right appear fine. He has has been taking his diureitcs with no change. He doesn't have any shortness of breah, BNP is 53 only and CXR show clear lungs. Review of Systems 2 Review of Systems: no shortness of breath no chest pain no dizzines swelling inthe legs no fever, no cough Yes all other systems are reviewed and are negative [facility] Medical History Tricuspid regurgitation Kidney disease Pleuritic chest pain Cough Hemoptysis History of CVA with residual deficit (~04/2005) History of COVID-19 (~06/2020) SDH (subdural hematoma) Essential hypertension Normally functioning cardiac pacemaker present (~2006) Atherosclerotic cardiovascular disease Hyperlipidemia GERD (gastroesophageal reflux disease) Pacemaker (~2006) Diabetes mellitus Persistent atrial fibrillation Family History Father No problems noted. Mother No problems noted. Surgical History History of heart artery stent History of craniotomy History of permanent cardiac pacemaker placement (~09/2006) Social History Household Members: None Housing: Apartment Do you presently have visiting nurse or other home services: Yes Alcohol intake: unknown Comment: able to verbalize back the need to use call perez if he needs to get OOB Patient Tobacco Use Status: Former Tobacco user Quit Date: >30 yrs ago Second Hand Smoke Exposure: No service: No Current occupational status: retired Meds Allergies Allergy/AdvReac Type Severity Reaction Status Date / Time NSAIDS due to CKD Allergy Unknown n/a Uncoded 12/26/22 12:42 Active Medications: Current Medications Acetaminophen (Acetaminophen 325 Mg Tablet) 650 mg PO Q6H PRN PRN Reason: Pain, Mild (Pain Scale 1-3) Docusate Sodium (Docusate Sodium 100 Mg Capsule) 100 mg PO DAILY PRN PRN Reason: Constipation Magnesium Hydroxide (Milk Of Magnesia 30 Ml Oral.Susp) 30 ml PO DAILY PRN PRN Reason: Constipation Melatonin (Melatonin 3 Mg Tablet) 3 mg PO BEDTIME PRN PRN Reason: Insomnia Ondansetron HCl (Ondansetron Hcl 4 Mg/2 Ml Vial) 4 mg IVPUSH Q8H PRN PRN Reason: Nausea and Vomiting Sodium Chloride (0.9 % Sodium Chloride Flush 3 Ml Syringe) 3 ml IVFLUSH [facility] Last Admin: 05/16/23 00:31 Dose: Not Given Home Medications Medication Instructions Recorded Confirmed Last Taken Type carvedilol 3.125 mg tablet 3.125 mg PO BID 07/02/20 06/26/23 10/14/22 History rosuvastatin 10 mg tablet 10 mg PO DAILY 07/02/20 06/26/23 Unknown History blood sugar diagnostic #10 ea 12/18/20 05/16/23 Unknown History ferrous sulfate 325 mg (65 mg 325 mg PO DAILY 12/18/20 06/26/23 Unknown History iron) tablet,delayed release lancets 28 gauge #100 ea 12/18/20 05/16/23 Unknown History blood-glucose meter (FreeStyle #1 ea 04/02/21 05/16/23 Unknown History [place] Lite kit) pen needle, diabetic 31 gauge x #1,200 ea 04/02/21 05/16/23 Unknown History 5/16 (BD Ultra-Fine Short Pen Needle) insulin aspart U-100 100 unit/mL 12 unit subcut DAILY@1730 05/30/22 06/26/23 Unknown History (3 mL) subcutaneous pen (Novolog FlexPen U-100 Insulin aspart) omeprazole 20 mg capsule,delayed 20 mg PO DAILY indegestion 05/30/22 06/26/23 10/14/22 History release albuterol sulfate 90 mcg/actuation 2 puff inhalation Q6H PRN wheezing 07/26/22 06/26/23 Unknown History aerosol inhaler (Ventolin HFA) amlodipine 2.5 mg tablet 2.5 mg PO QAM 07/26/22 06/26/23 10/14/22 History calcitriol 0.25 mcg capsule 0.25 mcg PO Q OTHER DAY 07/26/22 06/26/23 Unknown History gabapentin 100 mg capsule 100 mg PO QPM 05/16/23 06/26/23 Unknown History insulin aspart U-100 100 unit/mL 8 unit subcut DAILY@1130 05/16/23 06/26/23 Unknown History (3 mL) subcutaneous pen (Novolog FlexPen U-100 Insulin aspart) insulin aspart U-100 100 unit/mL 10 unit subcut DAILY@0730 05/16/23 06/26/23 Unknown History (3 mL) subcutaneous pen (Novolog FlexPen U-100 Insulin aspart) insulin degludec 100 unit/mL (3 28 unit subcut BEDTIME 05/16/23 06/26/23 Unknown History mL) subcutaneous pen (Tresiba FlexTouch U-100 insulin) spironolactone 25 mg tablet 12.5 mg PO QAM 05/16/23 06/26/23 Unknown History metolazone 2.5 mg tablet See Rx Instructions .Route .COMPLEX 06/26/23 Unknown History Physical Exam 2 Vital Signs and Narrative: Vital Signs: Last Vital Signs Temp 98.1 F 05/16/23 04:40 Pulse 60 05/16/23 05:07 Resp 12 05/16/23 05:07 BP 124/49 L 05/16/23 04:40 Pulse Ox 96 05/16/23 04:40 O2 Del Method Room Air 05/16/23 04:40 BMI result Body Mass Index 28.3 Const: Other: Constitutional: Alert, in no distress, overweight. Mental Status: Oriented to person, place and time. Eyes: Pupils are equal, round and reactive to light. Ear, Nose and Throat: Oropharynx clear, mucous membranes moist. Respiratory: Clear to auscultation. No wheezing, rales or rhonchi. Cardiovascular: S1 S2 regular. No murmurs, rubs or gallops, no JVD. He has sweeling of both leg tense swelling in the righ leg >> left , also signiviant swelling ofthe righ arm not much sweeling he left arm Gastrointestinal: Abdomen soft, non-tender, non-distended. Normal bowel sounds.? Neurologic: Cranial nerves II-XII grossly intact. No focal neurological deficits. Moves all extremities spontaneously.? Skin: No rashes or lesions.? Musculoskeletal: No cyanosis or clubbing. Psychiatric: Normal mood and affect? Results Labs 05/15/23 21:27 05/17/23 06:59 Labs: Imaging Radiologist's Impressions: Impressions Chest X-Ray 05/15/23 21:10 IMPRESSION: Mild cardiomegaly. The lungs are clear Assessment and Plan (1) Chronic right heart failure: Status: Acute Plan 82 year old male with history of permanent Atrial fibrillation, s/p pace maker, ho CVA, Diabetes mellitus, HTN, HLD and history of anterior mediastinal mass that has been followed by throacic surgery but he opted not to due anything about it. Here with swelling of the legs left >> right, and also swelling in the left arm, BNP is normal, CXR and no other sings to suggest heart failure. Concern is possible vascular compromise by the known anterior medistainal mass, he has no responded to diuretics swellling in the leg, doubt that it is elated to chf, rather may be related to medistinal mass -CT of chest to further eval, also get an echocardiogram, may need thoracic, vascular or cardiology depending on finding on CT and or echo Permanent AFIB--continue rate control med once med rec completed Diabetes--continue Sliding scale until med rec completed HLD--statin per med rec Hypokalemia, mild,, got po k, recheck DVT prophylaxis: restart eliquis once confirmed by med rec full code admission for at least 2 midnights for the management of swelling in legs and acute heart failure work up Quality Stroke Does the patient have a stroke diagnosis?: No VTE Prior VTE?: No VTE Risk Level:: Medical - moderate - high VTE Device Contraindication: Treatment Not Indicated VTE Drug Contraindication: N/A - Med Ordered
[2023-05-16 06:17] LABS: Anion Gap 12 (12-20); Blood Urea Nitrogen 34 mg/dL (9-16); Calcium 8.4 mg/dL (8.4-10.2); Carbon Dioxide 30 mmol/L (22-29); Chloride 104 mmol/L (96-108); Creatinine Clr Calc Pharmacy 35.3; Estimated Glomerular Filt Rate 39; Glucose Random 170 mg/dL (60-115); Potassium 3.2 mmol/L (3.3-5.1); Sodium 143 mmol/L (135-145)
--- NOTE | 2023-05-16 07:00 | CA_ITS ---
Transthoracic Echocardiogram Patient (Last, First, Middle): Dk Sepulveda, Gender: Male Date of : 1940 Age: 82 Procedure Date: 05/16/2023 Procedure Type: Transthoracic Echocardiogram Location: [facility] [place] Height: 170.18 cm Weight: 81.65 kg BSA: 1.93 m2 Heart Rate: bpm BP: 132 / 61 mmHg Cloth Folder Hand: ALIRIO Carlton MD: Ray Suggs MD [place] Worker Helper: Yung Mart MD Symptoms: swelling in legs ? chf Study Quality: Fair with Contrast ECG Rhythm: Atrial Fibrillation Conclusions: - 1. Mildly dilated left ventricle with low normal LV ejection fraction of 50-55% with restrictive filling pattern 2. Moderately dilated right ventricle with moderately reduced RV systolic function 3. Biatrial enlargement, right greater than left 4. Mild mitral regurgitation 5. Moderate to severe tricuspid regurgitation 6. Normal measured RV systolic pressure with significantly elevated right atrial pressures 7. Small to moderate pericardial effusion Findings Left Ventricle Mildly increased left ventricular cavity size. There is normal left ventricular wall thickness. The left ventricular systolic function is low normal. The visually estimated ejection fraction is between 50-55%. Spectral Doppler is indicative of a restrictive filling pattern. Right Ventricle Moderately increased right ventricular cavity size. There is moderately decreased right ventricular systolic function. There is a pacemaker wire seen in the right ventricle. Atria The left atrium is mildly dilated. Interatrial shunt cannot be excluded. The right atrium is moderately dilated. A pacemaker wire is identified in the right atrium. Aortic Valve There is mild calcification of the aortic valve. There is no aortic valve stenosis. There is no aortic valve regurgitation. Mitral Valve There is mild anterior and posterior mitral leaflet thickening. There is mild mitral annular calcification. There is mild mitral valve regurgitation. There is no mitral valve stenosis. Pulmonic Valve The pulmonic valve is likely normal. There is trace to mild pulmonic valve regurgitation. Tricuspid Valve Normal tricuspid valve structure. There is moderate to severe tricuspid valve regurgitation. Significantly elevated right atrial pressure. There is no evidence of pulmonary hypertension. Great Vessels The pulmonary artery was not well visualized. There is mild dilatation of the ascending aorta measuring 3.90 cm. Venous The inferior vena cava is severely dilated and collapses less than 50% with inspiration. Pericardium/Pleural There are no definitive echocardiographic findings of tamponade physiology. Small to moderate pericardial effusion, more prominent near the right-sided chambers. Prior Study Comparison Changes noted compared to prior study dated: 07/30/2021. Small to moderate pericardial effusion is present without tamponade with low normal LV ejection fraction with significantly elevated right atrial pressures Measurements 2D Linear Measurements IVSd: 0.88 0.6-0.9/0.6-1.0 cm LVIDd: 5.81 3.9-5.3/4.2-5.9 cm LVIDd Index: 3.01 2.4-3.2/2.2-3.1 cm/m2 LVIDs: 3.60 2.0-3.6 cm LVPWd: 1.11 0.7-1.1 cm Ao Root: 3.50 2.1-3.5 cm LA Diam: 4.20 2.7-3.8/3.0-4.0 cm LAIDs Index: 2.18 1.5-2.3 cm/m2 LV Mass: 289.57 67-162/88-224 g LV Mass Index: 150.03 43-95/49-115 g/m2 LVOT Diam: 2.00 3.0+(-)1.3 cm 2D Systolic Function EF 4C: 35.40 >55% EF 2C: 67.50 >55% EF BiP: 50.10 >55% Mitral Valve MV VTI: 0.41 MV Pk Jarad: 1.65 MV Mn Jarad: 0.74 MV Pk Grad: 11.00 MV Mn Grad: 3.00 MV Pk E: 1.34 MV PK A: 0.39 MV Decel Time: 230.00 E/A: 3.50 E'Lateral: 7.40 E'Medial: 5.77 E/E' Med: 23.20 E/E' Lat: 18.10 PHT: 67.00 MVA PHT: 3.28 Decel Noble: 5.83 LVOT LVOT Diam: 2.00 LVOT Area: 3.14 Diastolic Function MV Pk E: 1.34 MV Pk A: 0.39 E/A: 3.50 E'Medial: 5.77 E/E' Med: 23.20 E' Laterial: 7.40 E/E' Lat: 18.10 Right Ventricle TAPSE (mm): 14.00 TVS' Jarad: 9.00 Tricuspid Valve TR Pk Jarad: 2.29 TR Pk Grad: 21.00 RA Press: 15.00 RVSP: 36.00 Great Vessels Aorta Ao Root-2D: 3.50 2.0-3.7 cm Ao Asc: 3.90 2.1-3.4 cm Pulmonary Valve PV Pk Jarad: 1.04 Peak PV Grad: 4.00 Updated in Other Vendor System with Status of Final Yung Mart MD electronically signed on 05/16/2023 4:47:16 PM with status of Final
[2023-05-16 07:10] LABS: Glucose, Whole Blood 123 mg/dL (60-115)
--- NOTE | 2023-05-16 07:32 | PC.NURSE ---
pt is alert and oriented, skin appropriate for ethnicity, respirations even and unlabored, ls clear, pt does have bilateral peding edema to the lower extremities all the way up the calf area about +2, pt denies pain or sob at this time. ns with being paced on the monitor, vs stable
[2023-05-16] MEDS: 0.9 % Sodium Chloride Flush 3 ML SYRINGE IVFLUSH ×2 (07:40→18:00)
[2023-05-16] MEDS: Potassium Chloride ER 20 MEQ TAB.ER.PRT 40 MEQ PO (07:40)
--- NOTE | 2023-05-16 09:08 | P.CONPL_ITS ---
History of Present Illness History of Present Illness Consult date: 05/16/23 Chief complaint: heart failure Narrative: This is an inpatient pulmonary consultation. The patient is a 82 year old male with history of permanent Atrial fibrillation, s/p pace maker, ho CVA, Diabetes mellitus, HTN, HLD and history of anterior mediastinal mass that has been followed by throacic surgery but he opted not to due anything about it. The last CT of the chest from July 2022 showed an anterior superior mediastinal mass with no chage in size compare a CT of a year earlier. His presenting with a week of swelling in the leg with the left much greater than the left, also has swelling of the entire left arm particular at the elbow, and right appear fine. He has has been taking his diureitcs with no change. He doesn't have any shortness of breah, BNP is 53. The patient did undergo a CT scan of the chest which was personally by me demonstrating slight increase in the size of the mediastinal mass in addition to that increased cardiac silhouette. On examination he does have significant swelling primarily the lower extremities also some evidence of anasarca in addition to that appears to have a significant murmur. In the meantime, with the increased size of the anterior mass I did talk to the patient to consider a CT-guided biopsy. He is going to talk to his daughter about it. She in case she does decide to go ahead with the biopsy he would have to be off the Eliquis for couple days. Review of Systems 2 Constitutional: Constitutional: Denies fever(s) ENT: Denies nasal obstruction Cardiovascular: Cardiovascular: Reports leg edema, Denies palpitations, Reports dyspnea on exertion and Denies orthopnea Respiratory: Respiratory: Reports dyspnea on exertion and Denies wheezing Gastrointestinal: Gastrointestinal: Denies abdominal pain Musculoskeletal: Musculoskeletal: Reports myalgias Neurologic: Reports system reviewed and no additional complaints, except as documented Endocrine: Endocrine: Denies palpitations Hematologic/Lymphatic: Hematologic/Lymphatic: Denies easy bruising and Denies lymphadenopathy Allergic/Immunologic: Allergic/Immunologic: Denies wheezing PMFSH Past Medical History Medical History Kidney disease Pleuritic chest pain Cough Hemoptysis History of CVA with residual deficit (~04/2005) History of COVID-19 (~06/2020) SDH (subdural hematoma) Essential hypertension Normally functioning cardiac pacemaker present (~2006) Atherosclerotic cardiovascular disease Hyperlipidemia GERD (gastroesophageal reflux disease) Pacemaker (~2006) Diabetes mellitus Persistent atrial fibrillation Family History Family History Father No problems noted. Mother No problems noted. Surgical History Surgical History History of heart artery stent History of craniotomy History of permanent cardiac pacemaker placement (~09/2006) Social History Household Members: Family Housing: House Do you presently have visiting nurse or other home services: Yes Alcohol intake: unknown Patient Tobacco Use Status: Former Tobacco user Quit Date: >30 yrs ago Smoked in Last 30 Days: No Second Hand Smoke Exposure: No Advance Directives: No Advance Directives Information Provided: Yes Nutrition Risks: No Nutritional Risk service: No Current occupational status: retired Meds Allergies Allergy/AdvReac Type Severity Reaction Status Date / Time NSAIDS due to CKD Allergy Unknown n/a Uncoded 12/26/22 12:42 Active Medications: Current Medications Acetaminophen (Acetaminophen 325 Mg Tablet) 650 mg PO Q6H PRN PRN Reason: Pain, Mild (Pain Scale 1-3) Dextrose (Dextrose 50 % 25 Gm/50 Ml Syringe) 25 gm IVPUSH Q15M PRN; Protocol PRN Reason: per Hypoglycemia Standing Ord. Docusate Sodium (Docusate Sodium 100 Mg Capsule) 100 mg PO DAILY PRN PRN Reason: Constipation Glucose (Glucose Gel 15 Gm Gel..Gram.) 15 gm PO Q15M PRN; Protocol PRN Reason: per Hypoglycemia Standing Ord. Insulin Human Lispro (Insulin Lispro 100 Unit/Ml 3 Ml Vial) 0 unit SUBCUT [facility]; Protocol Last Admin: 05/16/23 07:12 Dose: Not Given Magnesium Hydroxide (Milk Of Magnesia 30 Ml Oral.Susp) 30 ml PO DAILY PRN PRN Reason: Constipation Melatonin (Melatonin 3 Mg Tablet) 3 mg PO BEDTIME PRN PRN Reason: Insomnia Ondansetron HCl (Ondansetron Hcl 4 Mg/2 Ml Vial) 4 mg IVPUSH Q8H PRN PRN Reason: Nausea and Vomiting Sodium Chloride (0.9 % Sodium Chloride Flush 3 Ml Syringe) 3 ml IVFLUSH QSHIFT [facility] Last Admin: 05/16/23 07:40 Dose: 3 ml Home Medications Medication Instructions Recorded Confirmed Last Taken Type carvedilol 3.125 mg tablet 3.125 mg PO BID 07/02/20 12/26/22 10/14/22 History rosuvastatin 10 mg tablet 10 mg PO DAILY 07/02/20 12/26/22 Unknown History blood sugar diagnostic #10 ea 12/18/20 12/26/22 Unknown History ferrous sulfate 325 mg (65 mg 325 mg PO DAILY 12/18/20 12/26/22 Unknown History iron) tablet,delayed release lancets 28 gauge #100 ea 12/18/20 12/26/22 Unknown History blood-glucose meter (FreeStyle #1 ea 04/02/21 12/26/22 Unknown History [place] Lite kit) pen needle, diabetic 31 gauge x #1,200 ea 04/02/21 12/26/22 Unknown History 16 (BD Ultra-Fine Short Pen Needle) insulin aspart U-100 100 unit/mL 10 unit subcut TIDAC 05/30/22 12/26/22 Unknown History (3 mL) subcutaneous pen (Novolog FlexPen U-100 Insulin aspart) omeprazole 20 mg capsule,delayed 20 mg PO DAILY indegestion 05/30/22 12/26/22 10/14/22 History release albuterol sulfate 90 mcg/actuation 2 puff inhalation Q6H PRN wheezing 07/26/22 12/26/22 Unknown History aerosol inhaler (Ventolin HFA) amlodipine 2.5 mg tablet 2.5 mg PO QAM 07/26/22 12/26/22 10/14/22 History calcitriol 0.25 mcg capsule 0.25 mcg PO Q OTHER DAY 07/26/22 12/26/22 Unknown History gabapentin 100 mg capsule 100 mg PO QPM 05/16/23 Unknown History insulin aspart U-100 100 unit/mL 8 unit subcut DAILY@1130 05/16/23 05/16/23 Unknown History (3 mL) subcutaneous pen (Novolog FlexPen U-100 Insulin aspart) insulin aspart U-100 100 unit/mL 10 unit subcut DAILY@0730 05/16/23 05/16/23 Unknown History (3 mL) subcutaneous pen (Novolog FlexPen U-100 Insulin aspart) insulin degludec 100 unit/mL (3 26 unit subcut QPM 05/16/23 Unknown History mL) subcutaneous pen (Tresiba FlexTouch U-100 insulin) spironolactone 25 mg tablet 12.5 mg PO QAM 05/16/23 Unknown History torsemide 20 mg tablet 60 mg PO DAILY 05/16/23 Unknown History Physical Exam 2 Vital Signs: Vital Signs: Last Vital Signs Temp 98.1 F 05/16/23 04:40 Pulse 64 05/16/23 07:31 Resp 16 05/16/23 07:31 BP 132/61 05/16/23 07:31 Pulse Ox 96 05/16/23 07:31 O2 Del Method Room Air 05/16/23 07:31 BMI result Body Mass Index 28.3 Const: General: comfortable and no acute distress O rientation/consciousness: patient oriented x3 HEENT: Other: Unremarkable Head: Yes normal to inspection Neck: Neck: Yes normal visual inspection Chest: Chest palpation & inspection: normal inspection of the chest Resp: Auscultation: clear to auscultation bilaterally Cardio: Heart sounds: S1 normal heart sound present, S2 normal heart sound present and Murmur heart sound present GI: Palpation (GI): Soft to palpation Back/Spine/Pelvis: Other: unremarkable Skin: General skin exam: no rashes or lesions noted Neuro: General: patient oriented x3 Extrem: General: Yes edema Psych: Mental Status: mental status grossly normal Results Laboratory Findings 05/15/23 21:27 05/16/23 04:58 ABG, PT/INR, D-dimer: PT/INR, D-dimer PT 18.9 SEC (11.1-13.3) H 05/15/23 21:45 INR 1.6 (0.9-1.1) H 05/15/23 21:45 Abnormal lab findings: Abnormal Labs 05/15/23 05/15/23 05/16/23 21:27 21:45 04:58 RBC 3.14 L Hgb 9.0 L Hct 28.2 L RDW 18.0 H MPV 9.3 L Immature Gran % (Auto) 0.9 H Lymph % (Auto) 13.9 L Lymph # (Auto) 1.1 L Abs Immat Gran (auto) 0.07 H PT 18.9 H INR 1.6 H Potassium 3.1 L 3.2 L Carbon Dioxide 30 H 30 H Anion Gap 11 L BUN 34 H 34 H Creatinine 1.78 H 1.68 H POC Glucose Random Glucose 119 H 170 H Total Protein 6.1 L Albumin 3.1 L 05/16/23 07:04 RBC Hgb Hct RDW MPV Immature Gran % (Auto) Lymph % (Auto) Lymph # (Auto) Abs Immat Gran (auto) PT INR Potassium Carbon Dioxide Anion Gap BUN Creatinine POC Glucose 123 H Random Glucose Total Protein Albumin Assessment and Plan (1) Leg edema: Status: Acute (2) Mediastinal mass: Status: Acute (3) Murmur: Status: Acute Plan I do not think the anasarca is related to the mediastinal mass. Although, I agree with a biopsy of the anterior mediastinal mass with the increase in size. The patient is still not sure. He will need to d/w his daughter. Would need to be off the Eliquis for at least 2 days ECHO diuresis as tolerated Procedures Date of Service Date of Service: 05/16/23
--- NOTE | 2023-05-16 09:16 | PHA.MEDREC ---
Pharmacy Consult ? Medication Reconciliation Pharmacy has completed the medication reconciliation. Called Pharmacy to verify meds in med box and called [facility]illi to verify insulin doses. Per [facility], metolazone discontinued from walk in clinic [facility]
--- NOTE | 2023-05-16 09:39 | MHC.CM.PN ---
IMM 05/16/23, Pt lives alone, has [employer] services for about 20 hours a week, which he said is going well. He has not used [facility] or been to [facility] before, for med equip he uses a cane. He can call family or a friend for a ride home upon DC. CM discussed HCP with him and he agreed to complete the form here, CM will provide. CM to follow and assist with DC planning.
--- NOTE | 2023-05-16 09:41 | PC.NURSE ---
assumed care of patient - aox3. bilat pitting edema in lower extrem. no reports of pain. LSC. pt reports edema began about 1 week ago. pt ate breakfast, no complaints at this time, awaiting room assignment
--- NOTE | 2023-05-16 11:57 | P.PNIM_ITS ---
Subjective Subjective Date of Service: 05/16/23 Physical Exam 2 Vital Signs: Vital Signs: Last Vital Signs Temp 98.1 F 05/16/23 04:40 Pulse 64 05/16/23 07:31 Resp 16 05/16/23 07:31 BP 132/61 05/16/23 07:31 Pulse Ox 96 05/16/23 07:31 O2 Del Method Room Air 05/16/23 07:31 BMI result Body Mass Index 28.3 Objective Data Active Medications Acetaminophen (Acetaminophen 325 Mg Tablet) 650 mg PO Q6H PRN PRN Reason: Pain, Mild (Pain Scale 1-3) Dextrose (Dextrose 50 % 25 Gm/50 Ml Syringe) 25 gm IVPUSH Q15M PRN; Protocol PRN Reason: per Hypoglycemia Standing Ord. Docusate Sodium (Docusate Sodium 100 Mg Capsule) 100 mg PO DAILY PRN PRN Reason: Constipation Glucose (Glucose Gel 15 Gm Gel..Gram.) 15 gm PO Q15M PRN; Protocol PRN Reason: per Hypoglycemia Standing Ord. Insulin Human Lispro (Insulin Lispro 100 Unit/Ml 3 Ml Vial) 0 unit SUBCUT [facility]; Protocol Last Admin: 05/16/23 07:12 Dose: Not Given Documented By: TEMO Non-Admin Reason: poc 123 Magnesium Hydroxide (Milk Of Magnesia 30 Ml Oral.Susp) 30 ml PO DAILY PRN PRN Reason: Constipation Melatonin (Melatonin 3 Mg Tablet) 3 mg PO BEDTIME PRN PRN Reason: Insomnia Ondansetron HCl (Ondansetron Hcl 4 Mg/2 Ml Vial) 4 mg IVPUSH Q8H PRN PRN Reason: Nausea and Vomiting Sodium Chloride (0.9 % Sodium Chloride Flush 3 Ml Syringe) 3 ml IVFLUSH [facility] Last Admin: 05/16/23 07:40 Dose: 3 ml Documented By: TEMO Labs 05/15/23 21:27 05/16/23 04:58 Labs: Laboratory Results - last 24 hr 05/15/23 05/15/23 05/15/23 21:27 21:45 23:54 MCV 89.8 MCH 28.7 MCHC 31.9 RDW 18.0 H Plt Count 166 D MPV 9.3 L Immature Gran % (Auto) 0.9 H Neut % (Auto) 72.6 Lymph % (Auto) 13.9 L [place] % (Auto) 9.9 Eos % (Auto) 2.6 Baso % (Auto) 0.1 Lymph # (Auto) 1.1 L [place] # (Auto) 0.8 Eos # (Auto) 0.2 Baso # (Auto) 0.0 Abs Immat Gran (auto) 0.07 H Absolute Neuts (auto) 5.9 Absolute Nucleated RBC 0.000 Nucleated RBC % (auto) 0.0 PT 18.9 H INR 1.6 H Anion Gap 11 L Estim Creat Clear Calc 33.3 Estimated GFR 37 POC Glucose 84 Random Glucose 119 H Calcium 8.6 Magnesium 1.9 Total Bilirubin 0.6 Direct Bilirubin 0.3 AST 26 ALT 12 Alkaline Phosphatase 62 B-Natriuretic Peptide 53 Total Protein 6.1 L Albumin 3.1 L 05/16/23 05/16/23 04:58 07:04 MCV MCH MCHC RDW Plt Count MPV Immature Gran % (Auto) Neut % (Auto) Lymph % (Auto) [place] % (Auto) Eos % (Auto) Baso % (Auto) Lymph # (Auto) [place] # (Auto) Eos # (Auto) Baso # (Auto) Abs Immat Gran (auto) Absolute Neuts (auto) Absolute Nucleated RBC Nucleated RBC % (auto) PT INR Anion Gap 12 Estim Creat Clear Calc 35.3 Estimated GFR 39 POC Glucose 123 H Random Glucose 170 H Calcium 8.4 Magnesium Total Bilirubin Direct Bilirubin AST ALT Alkaline Phosphatase B-Natriuretic Peptide Total Protein Albumin Assessment and Plan (1) Murmur: Status: Acute (2) CKD (chronic kidney disease): Status: Acute (3) Leg edema: Status: Acute Plan 82 year old male with history of permanent Atrial fibrillation, s/p pace maker, ho CVA, Diabetes mellitus, HTN, HLD and history of anterior mediastinal mass that has been followed by throacic surgery but he opted not to due anything about it. Here with swelling of the legs left >> right, and also swelling in the left arm, BNP is normal, CXR and no other sings to suggest heart failure. Concern is possible vascular compromise by the known anterior medistainal mass, he has no responded to diuretics Leg edema with anasarca swellling in the legs and left arm possibly acute CHF echocardiogram ordered continue IV lasix cardiology consultation Mediastinal mass dx 07/2022 seen by [facility] pulm and thoracic surgery but patient had previously declined to do anything about the mass now CT showing increase in size of mass, discussed with pulm, patient will talk with daughter re CT guided biopsy will need to hold eliquis for biopsy for a few days Hypokalemia mild repleted Permanent AFIB continue carvedilol hold eliquis CKD 3 baseline follow Diabetes mellitus type 2 continue Sliding scale , ada diet, long acting insulin HLD statin GERD PPI DVT prophylaxis: eliquis on hold due to possible biopsy of mediastinal mass Attending Dr. Rodríguez full code continue hospital stay for the management of swelling in legs and acute heart failure work up Quality Stroke Does the patient have a stroke diagnosis?: No VTE Prior VTE?: No VTE Risk Level:: Medical - moderate - high VTE Device Contraindication: Treatment Not Indicated VTE Drug Contraindication: N/A - Med Ordered
[2023-05-16 12:16] LABS: Glucose, Whole Blood 157 mg/dL (60-115)
[2023-05-16] MEDS: Insulin Lispro 100 UNIT/ML 3 ML VIAL SUBCUT ×3 (13:31→21:05)
[2023-05-16] MEDS: amLODIPine Besylate 2.5 MG TABLET PO (13:33)
--- NOTE | 2023-05-16 14:21 | PC.NURSE ---
after updraft pt put on RA - desatts to 88% RA. put back on NC 5L to maintain saturation 92%
--- NOTE | 2023-05-16 16:41 | PC.NURSE ---
pt has been waiting for a room assignment in the ED today. No reports of pain, vitals stable, lung sounds clear.
[2023-05-16 16:44] LABS: Glucose, Whole Blood 244 mg/dL (60-115)
--- NOTE | 2023-05-16 19:24 | PC.NURSE ---
called floor to give report, awaiting call back.
[2023-05-16 20:57] LABS: Glucose, Whole Blood 169 mg/dL (60-115)
[2023-05-16] MEDS: carvediloL 3.125 MG TABLET PO (21:04)
[2023-05-16] MEDS: Gabapentin 100 MG CAPSULE PO (21:04)
[2023-05-16] MEDS: Insulin Glargine,Hum.rec.anlog 100 UNIT/ML 10 ML VIAL 19 UNIT SUBCUT (21:04)
[2023-05-17] VITALS: BP 130/59; PULSE 62; RESP 18; TEMP 36.8; O2SAT 98
[2023-05-17] MEDS: 0.9 % Sodium Chloride Flush 3 ML SYRINGE IVFLUSH ×2 (00:04→07:48)
[2023-05-17 04:00] VITALS: BP 116/60; PULSE 60; RESP 18; TEMP 36.9; O2SAT 96
[2023-05-17] MEDS: Omeprazole 20 MG CAPSULE.DR PO (06:02)
[2023-05-17 07:25] VITALS: BP 142/61; PULSE 70; RESP 20; TEMP 36.6; O2SAT 95
[2023-05-17 07:33] LABS: Glucose, Whole Blood 104 mg/dL (60-115)
[2023-05-17] MEDS: Furosemide 20 MG/2 ML VIAL IVPUSH (07:46)
[2023-05-17] MEDS: Spironolactone 25 MG TABLET 12.5 MG PO (07:47)
[2023-05-17] MEDS: carvediloL 3.125 MG TABLET PO (07:47)
[2023-05-17] MEDS: amLODIPine Besylate 2.5 MG TABLET PO (07:48)
[2023-05-17] MEDS: Ferrous Sulfate 324 MG TABLET.DR PO (07:48)
[2023-05-17 08:02] LABS: Anion Gap 11 (12-20); Blood Urea Nitrogen 31 mg/dL (9-16); Calcium 8.4 mg/dL (8.4-10.2); Carbon Dioxide 30 mmol/L (22-29); Chloride 106 mmol/L (96-108); Creatinine Clr Calc Pharmacy 42.6; Estimated Glomerular Filt Rate 49; Glucose Random 105 mg/dL (60-115); Potassium 3.5 mmol/L (3.3-5.1); Sodium 143 mmol/L (135-145)
--- NOTE | 2023-05-17 09:00 | P.PNPL_ITS ---
Subjective Subjective Date of Service: 05/17/23 Interval history: The patient was seen on exam. Denies any chest pain. Denies any shortness of breath. Still has significant volume overload status. We did review his echo demonstrating moderate to severe TR with decreased RV function in addition to a [id number] pericardial effusion. Patient should continue with diuresis and Cardiology should be consulted. In regards of the anterior mediastinal mass I did speak to the patient also his daughter. The patient should have a biopsy although now with the at or new cardiac findings I would rather focus more on the cardiovascular issues before putting him through additional procedures. Objective Data Labs 05/15/23 21:27 05/17/23 06:59 Labs: Laboratory Results - last 24 hr 05/16/23 05/16/23 05/16/23 12:08 16:39 20:33 Sodium Potassium Chloride Carbon Dioxide Anion Gap BUN Creatinine Estim Creat Clear Calc Estimated GFR POC Glucose 157 H 244 H 169 H Random Glucose Calcium 05/17/23 05/17/23 06:59 07:22 Sodium 143 Potassium 3.5 Chloride 106 Carbon Dioxide 30 H Anion Gap 11 L BUN 31 H Creatinine 1.39 Estim Creat Clear Calc 42.6 Estimated GFR 49 POC Glucose 104 Random Glucose 105 Calcium 8.4 Review of Systems Constitutional: Denies fever(s) Denies nasal obstruction Cardiovascular: Reports leg edema, Denies palpitations, Reports dyspnea on exertion and Denies orthopnea Respiratory: Reports dyspnea on exertion and Denies wheezing Gastrointestinal: Denies abdominal pain Musculoskeletal: Reports myalgias Reports system reviewed and no additional complaints, except as documented Endocrine: Denies palpitations Hematologic/Lymphatic: Denies easy bruising and Denies lymphadenopathy Allergic/Immunologic: Denies wheezing Physical Exam 2 Vital Signs: Vital Signs: Last Vital Signs Temp 97.8 F 05/17/23 07:25 Pulse 70 05/17/23 07:25 Resp 20 05/17/23 07:25 BP 142/61 H 05/17/23 07:25 Pulse Ox 95 05/17/23 07:25 O2 Del Method Room Air 05/17/23 07:25 BMI result Body Mass Index 28.3 Const: General: comfortable and no acute distress O rientation/consciousness: patient oriented x3 HEENT: Other: Unremarkable Head: Yes normal to inspection Neck: Neck: Yes normal visual inspection Chest: Chest palpation & inspection: normal inspection of the chest Resp: Auscultation: clear to auscultation bilaterally Cardio: Heart sounds: S1 normal heart sound present, S2 normal heart sound present and Murmur heart sound present GI: Palpation (GI): Soft to palpation Back/Spine/Pelvis: Other: unremarkable Skin: General skin exam: no rashes or lesions noted Neuro: General: patient oriented x3 Extrem: General: Yes edema Psych: Mental Status: mental status grossly normal Procedures Date of Service Date of Service: 05/17/23 Assessment and Plan Assessment and plan (1) Mediastinal mass: Status: Acute (2) Pericardial effusion: Status: Acute (3) Tricuspid regurgitation: Status: Acute (4) Leg edema: Status: Acute Plan Cardiology eval Diuresis as tolerated Cardiac eval prior to biopsy of mediastinal mass. OK to address it as an outpt too Will follow Time Spent With Patient Time: Total time managing care of this patient today ____ minutes. Progress Note: Quality Stroke Does the patient have a stroke diagnosis?: No
[2023-05-17] MEDS: calcitrioL 0.25 MCG CAPSULE PO (09:07)
[2023-05-17] MEDS: Fluticasone Propionate Nasal 16 GM SPRAY 2 SPRAY NOSTRIL-B (09:08)
--- NOTE | 2023-05-17 10:00 | PM.CNCAR ---
History of Present Illness History of Present Illness Date of Service: 05/17/23 Requesting physician: Al Faria Consult reason: atrial fibrillation and congestive heart failure Chief complaint: heart failure Narrative: I was consulted to see Dk in cardiology consultation today for bilateral lower extremity swelling related to right heart failure. Patient came to the hospital because he was having progressive lower extremity swelling not responding to oral diuretic regimen as outpatient. He came to the hospital and given IV diuresis. He said he has been going to the bathroom a lot here. Although intake and output chart only shows negative balance of 400 yesterday. Unclear if this is being maintain accurately. Patient is still having leg edema but he says much improved compared to when he came in. No thigh swelling no abdominal distension. Echocardiogram done yesterday showed low normal LV ejection fraction with dilated right-sided chambers, right atrial more than left atrium with moderately severe TR and elevated right atrial pressures. Patient today denies any significant orthopnea, PND, significant shortness of breath. No lightheadedness, syncope. 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 Prior history of CAD with stenting of the diagonal branch with nonobstructive disease in the of the segments with no recent symptoms suggestive angina Review of Systems Constitutional: Constitutional: Reports no additional constitutional complaints Eyes: Eyes: Reports no additional eye complaints Cardiovascular: Cardiovascular: Denies chest pain, Reports leg edema, Denies palpitations and Denies dyspnea Respiratory: Respiratory: Denies dyspnea Gastrointestinal: Gastrointestinal: Reports no additional gastrointestinal complaints Genitourinary: Genitourinary: Reports no additional male genitourinary complaints Neurologic: Reports system reviewed and no additional complaints, except as documented Psychiatric: Psychiatric: Reports no additional psychiatric complaints Endocrine: Endocrine: Denies palpitations PMFSH Past Medical History Medical History Tricuspid regurgitation Kidney disease Pleuritic chest pain Cough Hemoptysis History of CVA with residual deficit (~04/2005) History of COVID-19 (~06/2020) SDH (subdural hematoma) Essential hypertension Normally functioning cardiac pacemaker present (~2006) Atherosclerotic cardiovascular disease Hyperlipidemia GERD (gastroesophageal reflux disease) Pacemaker (~2006) Diabetes mellitus Persistent atrial fibrillation Family History Family History Father No problems noted. Mother No problems noted. Surgical History Surgical History History of heart artery stent History of craniotomy History of permanent cardiac pacemaker placement (~09/2006) Social History Social History Household Members: None Housing: Apartment Do you presently have visiting nurse or other home services: Yes Alcohol intake: unknown Comment: able to verbalize back the need to use call perez if he needs to get OOB Patient Tobacco Use Status: Former Tobacco user Quit Date: >30 yrs ago Second Hand Smoke Exposure: No service: No Current occupational status: retired [employer] Allergies Allergy/AdvReac Type Severity Reaction Status Date / Time NSAIDS due to CKD Allergy Unknown n/a Uncoded 12/26/22 12:42 Active Medications: Current Medications Acetaminophen (Acetaminophen 325 Mg Tablet) 650 mg PO Q6H PRN PRN Reason: Pain, Mild (Pain Scale 1-3) Albuterol Sulfate (Albuterol Sulfate 90 Mcg 8 Gm Inhaler) 2 puff INHALE Q6H PRN PRN Reason: wheezing Amlodipine Besylate (Amlodipine Besylate 2.5 Mg Tablet) 2.5 mg PO DAILY [facility]; Protocol Last Admin: 05/17/23 07:48 Dose: 2.5 mg Apixaban (Apixaban 2.5 Mg Tablet) 2.5 mg PO BID [facility] Atorvastatin Calcium (Atorvastatin Calcium 40 Mg Tablet) 40 mg PO BEDTIME [facility] Calcitriol (Calcitriol 0.25 Mcg Capsule) 0.25 mcg PO Q2D LEYLA Last Admin: 05/17/23 09:07 Dose: 0.25 mcg Carvedilol (Carvedilol 3.125 Mg Tablet) 3.125 mg PO BID [facility]; Protocol Last Admin: 05/17/23 07:47 Dose: 3.125 mg Dextrose (Dextrose 50 % 25 Gm/50 Ml Syringe) 25 gm IVPUSH Q15M PRN; Protocol PRN Reason: per Hypoglycemia Standing Ord. Docusate Sodium (Docusate Sodium 100 Mg Capsule) 100 mg PO DAILY PRN PRN Reason: Constipation Ferrous Sulfate (Ferrous Sulfate 324 Mg Tablet.) 324 mg PO DAILY [facility] Last Admin: 05/17/23 07:48 Dose: 324 mg Fluticasone Propionate (Fluticasone Propionate Nasal 16 Gm Baylis) 2 spray NOSTRIL-B DAILY [facility] Last Admin: 05/17/23 09:08 Dose: 2 spray Furosemide (Furosemide 20 Mg/2 Ml Vial) 20 mg IVPUSH DAILY [facility]; Protocol Last Admin: 05/17/23 07:46 Dose: 20 mg Gabapentin (Gabapentin 100 Mg Capsule) 100 mg PO BEDTIME [facility] Last Admin: 05/16/23 21:04 Dose: 100 mg Glucose (Glucose Gel 15 Gm Gel..Gram.) 15 gm PO Q15M PRN; Protocol PRN Reason: per Hypoglycemia Standing Ord. Insulin Glargine (Insulin Glargine,Hum.Rec.Anlog 100 Unit/Ml 10 Ml Vial) 19 unit SUBCUT BEDTIME [facility] Last Admin: 05/16/23 21:04 Dose: 19 unit Insulin Human Lispro (Insulin Lispro 100 Unit/Ml 3 Ml Vial) 0 unit SUBCUT QIDACHS [facility]; Protocol Last Admin: 05/17/23 07:35 Dose: Not Given Magnesium Hydroxide (Milk Of Magnesia 30 Ml Oral.Susp) 30 ml PO DAILY PRN PRN Reason: Constipation Melatonin (Melatonin 3 Mg Tablet) 3 mg PO BEDTIME PRN PRN Reason: Insomnia Omeprazole (Omeprazole 20 Mg Capsule.) 20 mg PO DAILY@0630 [facility] Last Admin: 05/17/23 06:02 Dose: 20 mg Ondansetron HCl (Ondansetron Hcl 4 Mg/2 Ml Vial) 4 mg IVPUSH Q8H PRN PRN Reason: Nausea and Vomiting Sodium Chloride (0.9 % Sodium Chloride Flush 3 Ml Syringe) 3 ml IVFLUSH QSHIFT [facility] Last Admin: 05/17/23 07:48 Dose: 3 ml Spironolactone (Spironolactone 25 Mg Tablet) 12.5 mg PO DAILY [facility]; Protocol Last Admin: 05/17/23 07:47 Dose: 12.5 mg Home Medications Medication Instructions Recorded Confirmed Last Taken Type carvedilol 3.125 mg tablet 3.125 mg PO BID 07/02/20 05/16/23 10/14/22 History rosuvastatin 10 mg tablet 10 mg PO DAILY 07/02/20 05/16/23 Unknown History blood sugar diagnostic #10 ea 12/18/20 05/16/23 Unknown History ferrous sulfate 325 mg (65 mg 325 mg PO DAILY 12/18/20 05/16/23 Unknown History iron) tablet,delayed release lancets 28 gauge #100 ea 12/18/20 05/16/23 Unknown History blood-glucose meter (FreeStyle #1 ea 04/02/21 05/16/23 Unknown History [place] Lite kit) pen needle, diabetic 31 gauge x #1,200 ea 04/02/21 05/16/23 Unknown History 5/16 (BD Ultra-Fine Short Pen Needle) insulin aspart U-100 100 unit/mL 12 unit subcut DAILY@1730 05/30/22 05/16/23 Unknown History (3 mL) subcutaneous pen (Novolog FlexPen U-100 Insulin aspart) omeprazole 20 mg capsule,delayed 20 mg PO DAILY indegestion 05/30/22 05/16/23 10/14/22 History release albuterol sulfate 90 mcg/actuation 2 puff inhalation Q6H PRN wheezing 07/26/22 05/16/23 Unknown History aerosol inhaler (Ventolin HFA) amlodipine 2.5 mg tablet 2.5 mg PO QAM 07/26/22 05/16/23 10/14/22 History calcitriol 0.25 mcg capsule 0.25 mcg PO Q OTHER DAY 07/26/22 05/16/23 Unknown History gabapentin 100 mg capsule 100 mg PO QPM 05/16/23 05/16/23 Unknown History insulin aspart U-100 100 unit/mL 8 unit subcut DAILY@1130 05/16/23 05/16/23 Unknown History (3 mL) subcutaneous pen (Novolog FlexPen U-100 Insulin aspart) insulin aspart U-100 100 unit/mL 10 unit subcut DAILY@0730 05/16/23 05/16/23 Unknown History (3 mL) subcutaneous pen (Novolog FlexPen U-100 Insulin aspart) insulin degludec 100 unit/mL (3 28 unit subcut BEDTIME 05/16/23 05/16/23 Unknown History mL) subcutaneous pen (Tresiba FlexTouch U-100 insulin) spironolactone 25 mg tablet 12.5 mg PO QAM 05/16/23 05/16/23 Unknown History torsemide 20 mg tablet 60 mg PO DAILY 05/16/23 05/16/23 Unknown History Physical Exam Vital Signs: Vital Signs: Last Vital Signs Temp 97.8 F 05/17/23 07:25 Pulse 70 05/17/23 07:25 Resp 20 05/17/23 07:25 BP 142/61 H 05/17/23 07:25 Pulse Ox 95 05/17/23 07:25 O2 Del Method Room Air 05/17/23 07:25 BMI result Body Mass Index 28.3 Const: General: cooperative, comfortable, no acute distress, alert and awake Nutritional Appearance: average body habitus Orientation/consciousness: patient oriented x3 Limitations: no limitations HEENT: Head: Yes normocephalic and Yes atraumatic Neck: Neck: Yes trachea midline, Yes supple and Yes no JVD (Prominent V-waves) Resp: Effort & Inspection: normal respiratory effort Auscultation: clear to auscultation bilaterally Cardio: Jugular venous distension: no JVD Rate: regular rate Rhythm: regular rhythm Heart sounds: S1 normal heart sound present, S2 normal heart sound present, no click, no gallops and Murmur heart sound present systolic Skin: General skin exam: no rashes or lesions noted Neuro: General: patient oriented x3 and no focal motor deficits Extrem: General: No clubbing, No cyanosis and Yes edema (1+ edema) Psych: Appearance: grossly normal Objective Labs and Meds 05/15/23 21:27 05/17/23 06:59 Lab results: Laboratory Results - last 24 hr 05/16/23 05/16/23 05/16/23 12:08 16:39 20:33 Sodium Potassium Chloride Carbon Dioxide Anion Gap BUN Creatinine Estim Creat Clear Calc Estimated GFR POC Glucose 157 H 244 H 169 H Random Glucose Calcium 05/17/23 05/17/23 06:59 07:22 Sodium 143 Potassium 3.5 Chloride 106 Carbon Dioxide 30 H Anion Gap 11 L BUN 31 H Creatinine 1.39 Estim Creat Clear Calc 42.6 Estimated GFR 49 POC Glucose 104 Random Glucose 105 Calcium 8.4 Assessment and Plan (1) Right heart failure: Status: Acute Patient presents with right heart failure syndrome with predominantly symptoms of leg swelling despite being on oral diuretic therapy with torsemide. I would increase torsemide to 80 mg daily. Unfortunately has chronic atrial fibrillation with dilated right-sided chambers and superimposed moderate to severe tricuspid regurgitation which makes him at high risk for recurrent right heart failure syndrome. Given his chamber enlargement and chronic atrial fibrillation as well as the pacemaker lead, unlikely to pursue tricuspid repair at this point in time. Discussed with patient and the hospitalist team. Continue heart failure management. Agree with spironolactone. His chronic kidney disease is related to cardiorenal syndrome. Discussed with him about heart failure management with daily weight monitoring avoidance of salt loading. He understands and agrees. I would discharge him with p.r.n. metolazone in addition to torsemide when he has weight gain of greater than 2 lb. (2) Persistent atrial fibrillation: Status: Acute Persistent chronic atrial fibrillation with chronic kidney disease. Long-standing atrial fibrillation. Currently rate is adequately control and patient has underlying pacer dependent. Continue full oral anticoagulation, currently on Eliquis 2.5 mg b.i.d.. Patient can be discharged home today will set up for outpatient follow-up Procedures Date of Service Date of Service: 05/17/23
[2023-05-17 10:29] VITALS: BP 142/61; PULSE 70; O2SAT 95
[2023-05-17 11:23] VITALS: BP 122/57; PULSE 70; RESP 18; TEMP 36.8; O2SAT 96
[2023-05-17 11:26] LABS: Glucose, Whole Blood 190 mg/dL (60-115)
[2023-05-17] MEDS: Insulin Lispro 100 UNIT/ML 3 ML VIAL SUBCUT (11:50)
--- NOTE | 2023-05-17 11:53 | W.MHC.F2F ---
Service Date Service Date: 05/17/23 Encounter Date of encounter: 05/17/23 Reasons for Services Signs and symptoms assessed: CHF Reason for half-way: medication management, medication treatment, teach disease management and other (CHF monitoring/teaching) MD Overseeing Care: Juan M Rogers Homebound: Leaving the home is medically contraindicated at this time without the asist of a device and/or another person due th the listed conditions above and below. Reason homebound: shortness of breath with minimal effort and weakness related to hospital stay Certification: Based on the above findings, I certify that this patient is confined to the home and needs intermittent half-way care, physical therapy and/or speech therapy, or continues to need occupational therapy. The patient is under my care, and I have initiated the establishment of the plan of care. The patient will be followed by a physician who will periodically review the plan of care. Time Spent With Patient Time: Total time managing care of this patient today ____ minutes.
--- NOTE | 2023-05-17 12:01 | P.DS_ITS ---
DS: Providers Provider Date of Service: 05/17/23 Date of admission: 05/15/23 23:50 Date of discharge: 05/17/23 Primary care physician: Juan M Rogers MD Consults: 05/16/23 07:31 Consult to Pulmonology Routine Consulting Provider: [facility] Pulmonology Services Reason for consultation: mediastinal mass 05/16/23 12:13 Consult to Cardiology Routine Consulting Provider: [facility] [place] Cardiovascular Services Reason for consultation: ? CHF, LE edema 05/17/23 09:00 Consult to Cardiology Routine Consulting Provider: [facility] [place] Cardiovascular Services Reason for consultation: new severe TR, moderate pericardial effusion DS: Diagnosis Discharge Diagnosis (1) Right heart failure: Status: Acute (2) Persistent atrial fibrillation: Status: Acute (3) Tricuspid regurgitation: Status: Acute (4) Mediastinal mass: Status: Acute (5) Acute worsening of stage 3 chronic kidney disease: Status: Acute DS: Summary Hospital Course Hospital Course: from admission H+P by hospitalist Ray Suggs MD, 05/16/23: 82 year old male with history of permanent Atrial fibrillation, s/p pace maker, ho CVA, Diabetes mellitus, HTN, HLD and history of anterior mediastinal mass that has been followed by throacic surgery but he opted not to due anything about it. The last CT of the chest from July 2022 showed an anterior superior mediastinal mass with no chage in size compare a CT of a year earlier. His presenting with a week of swelling in the leg with the left much greater than the left, also has swelling of the entire left arm particular at the elbow, and right appear fine. He has has been taking his diureitcs with no change. He doesn't have any shortness of breah, BNP is 53 only and CXR show clear lungs. Mr Sepulveda was admitted to the telemetry unit. Cardiology and Pulmonology were consulted. He was given IV furosemide with improvement in the swelling as well as his creatinine, suggestive of cardiorenal sydnrome from CHF. Extremity swelling was not thought due to the mediastinal mass, but rather due to right-sided CHF. He has long-standing AF with dilated RV/RA and severe tricuspid regurgitation. Given the R-sided dilation, AF, and pacemaker lead, unlikely he can be a candidate for tricuspid repair. His torsemide was increased to 80 mg daily and he was also prescribed metolazone 2.5 mg prn weight gain of 2 lb or greater. Spironolactone was continued, along with carvedilol. He was discharged with [facility] services for CHF teaching/monitoring. He will need close cardiology follow-up. He declined biopsy of the mediastinal mass at this time, saying he wishes to think about it and discuss with his family. Time Attestation Total time managing care of this patient today: 35 mintues. Discharge coordination time: Greater than 30 minutes Quality: Safe Use of Opioids Does Pt have an Active Cancer Diagnosis on the Problem List?: No Quality: Stroke Does the patient have a stroke diagnosis?: No Physical Exam Vital Signs: Vital Signs: Last Vital Signs Temp 98.2 F 05/17/23 11: Pulse 70 05/17/23 11: Resp 18 05/17/23 11:23 BP 122/57 L 05/17/23 11:23 Pulse Ox 96 05/17/23 11:23 O2 Del Method Room Air 05/17/23 11:23 BMI result Body Mass Index 28.3 Gen: in no acute distress HEENT: sclera anicteric, moist mucus membranes Neck: supple Lungs: clear to auscultation bilaterally Heart: irregular, 2/6 systolic murmur along LLSB Abd: soft, non-tender, non-distended Ext: 1+ bilateral leg edema Skin: warm/well-perfused Neuro: alert and oriented x3, no focal findings Psych: appropriate affect DS: Data Data Completed and Pending Completed studies during hospitalization [Text1]: Laboratory Results WBC 8.1 X10*3/uL (4.8-10.8) 05/15/23 21: RBC 3.14 X10*6/uL (4.60-5.80) L 05/15/23 21: Hgb 9.0 g/dl (14.0-18.0) L 05/15/23: Hct 28.2 % (42.0-52.0) L 05/15/23 21: MCV 89.8 fL (80.0-98.0) 05/15/23 21: MCH 28.7 pg (27.0-33.0) 05/15/23 21: MCHC 31.9 g/dl (31.0-36.0) 05/15/23 21: RDW 18.0 % (11.0-16.0) H 05/15/23: Plt Count 166 X10*3/uL (160-400) D 05/15/23 21: MPV 9.3 fL (9.4-12.4) L 05/15/23: Immature Gran % (Auto) 0.9 % (0.0-0.4) H 05/15/23: Neut % (Auto) 72.6 % (45-73) 05/15/23 21: Lymph % (Auto) 13.9 % (20-40) L 05/15/23: [place] % (Auto) 9.9 % (2-11) 05/15/23: Eos % (Auto) 2.6 % (0-4) 05/15/23: Baso % (Auto) 0.1 % (0-2) 05/15/23: Lymph # (Auto) 1.1 X10*3/uL (1.2-4.9) L 05/15/23: [place] # (Auto) 0.8 X10*3/uL (0.1-1.2) 05/15/23: Eos # (Auto) 0.2 X10*3/uL (0.0-0.4) 05/15/23: Baso # (Auto) 0.0 X10*3/uL (0.0-0.2) 05/15/23: Abs Immat Gran (auto) 0.07 X10*3/uL (0.00-0.03) H 05/15/23: Absolute Neuts (auto) 5.9 x10*3/uL (2.0-8.3) 05/15/23: Absolute Nucleated RBC 0.000 X10*3/uL (0.0-0.012) 05/15/23: Nucleated RBC % (auto) 0.0 /100WBC (0.0-0.2) 05/15/23 21: PT 18.9 SEC (11.1-13.3) H 05/15/23 21:45 INR 1.6 (0.9-1.1) H 05/15/23 21:45 Sodium 143 mmol/L (135-145) 05/17/23 06:59 Potassium 3.5 mmol/L (3.3-5.1) 05/17/23 06:59 Chloride 106 mmol/L (96-108) 05/17/23 06:59 Carbon Dioxide 30 mmol/L (22-29) H 05/17/23 06:59 Anion Gap 11 (12-20) L 05/17/23 06:59 BUN 31 mg/dL (9-16) H 05/17/23 06:59 Creatinine 1.39 mg/dL (0.5-1.4) 05/17/23 06:59 Estim Creat Clear Calc 42.6 05/17/23 06:59 Estimated GFR 49 05/17/23 06:59 POC Glucose 190 mg/dL (60-115) H 05/17/23 11:18 Random Glucose 105 mg/dL (60-115) 05/17/23 06:59 Calcium 8.4 mg/dL (8.4-10.2) 05/17/23 06:59 Magnesium 1.9 mg/dL (1.6-2.6) 05/15/23 21:27 Total Bilirubin 0.6 mg/dL (0.0-1.0) 05/15/23 21:27 Direct Bilirubin 0.3 mg/dL (0.0-0.5) 05/15/23 21:27 AST 26 U/L (5-37) 05/15/23 21:27 ALT 12 U/L (0-40) 05/15/23 21:27 Alkaline Phosphatase 62 U/L (39-117) 05/15/23 21:27 Troponin I High Sens 19.5 ng/L (<3.5-35.0) 05/15/23 21:27 B-Natriuretic Peptide 53 pg/mL (<100) 05/15/23 21:27 Total Protein 6.1 g/dL (6.5-8.0) L 05/15/23 21:27 Albumin 3.1 g/dL (3.5-5.0) L 05/15/23 21:27 Impressions Chest X-Ray 05/15/23 21:10 IMPRESSION: Mild cardiomegaly. The lungs are clear Chest CT 05/16/23 05:54 IMPRESSION: 1. Anterior mediastinal mass measuring up to 4.4 cm, increased in size from 08/15/2022. 2. Redemonstrated cardiomegaly with pericardial effusion adjacent to the right atrium. 3. Splenomegaly. 4. Mildly prominent bilateral axillary lymph nodes, similar to prior. TTE 05/16/23 1. Mildly dilated left ventricle with low normal LV ejection fraction of 50-55% with restrictive filling pattern 2. Moderately dilated right ventricle with moderately reduced RV systolic function 3. Biatrial enlargement, right greater than left 4. Mild mitral regurgitation 5. Moderate to severe tricuspid regurgitation 6. Normal measured RV systolic pressure with significantly elevated right atrial pressures 7. Small to moderate pericardial effusion Discharge Plan Discharge Anticipated Discharge Date/Time: 05/17/23 11:55 Patient Disposition: Home Health Service Discharge Diagnosis: right-sided heart failure persistent atrial fibrillation GOOD/CKD3 mediastinal mass Referrals: Name,MD Juan M [Primary Care Provider] - 1 Week Dandre Squires MD [Physician] - 1 Month Yung Mart MD [Physician] - 1 Week Discharge Medications: New torsemide 40 mg tablet 80 mg PO DAILY Qty: 60 0RF metolazone 2.5 mg tablet See Rx Instructions .ROUTE .COMPLEX Qty: 14 0RF Rx Instructions: 1 tab daily if your weight goes up by 2 pounds or more Continued acetaminophen 650 mg tablet extended release 650 mg PO Q12H PRN (Reason: for pain) Qty: 60 0RF Eliquis 2.5 mg tablet 2.5 mg PO BID Qty: 180 3RF carvedilol 3.125 mg Tablet 3.125 mg PO BID rosuvastatin 10 mg Tablet 10 mg PO DAILY omeprazole 20 mg capsule,delayed release(DR/EC) 20 mg PO DAILY spironolactone 25 mg tablet 12.5 mg PO QAM gabapentin 100 mg capsule 100 mg PO QPM insulin degludec [Tresiba FlexTouch U-100] 100 unit/mL (3 mL) insulin pen 28 unit subcut BEDTIME insulin aspart U-100 [Novolog FlexPen U-100 Insulin] 100 unit/mL (3 mL) insulin pen 10 unit subcut DAILY@0730 insulin aspart U-100 [Novolog FlexPen U-100 Insulin] 100 unit/mL (3 mL) insulin pen 8 unit subcut DAILY@1130 (DME) blood sugar diagnostic Strip See Rx Instructions Not Applicable BID Qty: 10 Rx Instructions: As directed ferrous sulfate 325 mg (65 mg iron) tablet,delayed release (DR/EC) 325 mg PO DAILY (DME) lancets 28 gauge misc See Rx Instructions topical BID Qty: 100 Rx Instructions: As directed (DME) blood-glucose meter [FreeStyle [place] Lite] Kit See Rx Instructions .ROUTE .MEDSUPPLY Qty: 1 Rx Instructions: As directed (DME) pen needle, diabetic [BD Ultra-Fine Short Pen Needle] 31 gauge x 5/16 needle See Rx Instructions subcut DAILY Qty: 1200 Rx Instructions: As directed insulin aspart U-100 [Novolog FlexPen U-100 Insulin] 100 unit/mL (3 mL) insulin pen 12 unit subcut DAILY@1730 amlodipine 2.5 mg tablet 2.5 mg PO QAM calcitriol 0.25 mcg capsule 0.25 mcg PO Q OTHER DAY albuterol sulfate [Ventolin HFA] 90 mcg/actuation HFA aerosol inhaler 2 puff inhalation Q6H PRN (Reason: wheezing) fluticasone propionate 50 mcg/actuation spray,suspension 2 spray intranasal DAILY 30 Days Qty: 15.8 11RF Discontinued torsemide 20 mg tablet 60 mg PO DAILY Discharge Orders: Discharge Order (Routine); Ordered 05/17/23 Ordered By: Al Faria Diet: low sodium Activity on Discharge: As tolerated Stand Alone Forms: Patient Portal Discharge page Other Ambulatory Orders: Basic Metabolic Panel (Routine) Timeframe: 1 Week Facility: [facility] - Location: Laboratory Ordered By: Al Faria Magnesium (Routine) Timeframe: 1 Week Facility: [facility] - Location: Laboratory Ordered By: Al Faria Care Plan Goals: cardiac health Health Concerns: right-sided heart failure persistent atrial fibrillation GOOD/CKD3 mediastinal mass Plan of Treatment: increase torsemide to 80 mg once daily; continue spironolactone and carvedilol Low-sodium diet: less than 2000 mg of sodium daily. Weigh yourself daily. Take metolazone 2.5 mg daily and call your doctor if your weight goes up by more than 2 lb/day or 5 lb/week. follow up with [facility] [place] [place] Cardiology in 1-2 weeks recheck labs in 1 week: CELE magnesium follow up with [facility] [place] [place] Pulmonology in 4 weeks to consider biopsy of mediastinal mass Please follow up with your primary care doctor within 1 week. Return to the hospital if you experience recurrent or worsening symptoms. Assessment: See Discharge Summary.
--- NOTE | 2023-05-17 13:10 | MHC.CM.PN ---
Pt is medically cleared for D/C home with new [facility] for SN. Pt has arranged for his own transportation home via family.
== END 2023-05-17 12:50 | disposition home health service (06) | DRG 291 ==
LOC: HO.ED 22:03 → HO.EDOVER 05-16 00:03 → HO.IMC 05-16 19:20
PROVIDERS: Nurse Practitioner Acute Care; Nurse Practitioner Family; Admitting Provider Internal Medicine; Emergency Provider Internal Medicine; PCP Internal Medicine Geriatric Medicine; Visit Provider Family Medicine
DX: I13.0 Hypertensive heart and chronic kidney disease with heart failure and stage 1 through stage 4 chronic kidney disease, or unspecified chronic kidney disease (principal); J98.59 Other diseases of mediastinum, not elsewhere classified; I48.11 Longstanding persistent atrial fibrillation; N17.9 Acute kidney failure, unspecified; N18.30 Chronic kidney disease, stage 3 unspecified; E78.5 Hyperlipidemia, unspecified; E87.6 Hypokalemia; I50.810 Right heart failure, unspecified; I07.1 Rheumatic tricuspid insufficiency; K21.9 Gastro-esophageal reflux disease without esophagitis; I25.10 Atherosclerotic heart disease of native coronary artery without angina pectoris; E11.22 Type 2 diabetes mellitus with diabetic chronic kidney disease; Z95.0 Presence of cardiac pacemaker; Z87.891 Personal history of nicotine dependence; Z79.4 Long term (current) use of insulin; Z79.01 Long term (current) use of anticoagulants; Z79.51 Long term (current) use of inhaled steroids; Z79.899 Other long term (current) drug therapy
CPT/HCPCS: 36415; 71045; 71250; 80048; 80076; 82947; 83735; 83880; 84484; 85025; 85610; 93005; 93306; 97162; 99285; J1940; J3480; Q9957

== ENCOUNTER 2023-05-15 23:50 | Outpatient (BNV) | payer OTHER, SELFPAY | END 2023-05-16 07:00 | PROVIDERS: Admitting Provider Internal Medicine; Emergency Provider Internal Medicine; PCP Internal Medicine Geriatric Medicine; Visit Provider Internal Medicine Cardiovascular Disease | DX: I36.1 Nonrheumatic tricuspid (valve) insufficiency (principal); I34.0 Nonrheumatic mitral (valve) insufficiency | CPT/HCPCS: 93306 ==

== ENCOUNTER → 2023-05-15 23:50 | Outpatient (BNV) | payer OTHER, SELFPAY | PROVIDERS: Admitting Provider Internal Medicine; Emergency Provider Internal Medicine; PCP Internal Medicine Geriatric Medicine; Visit Provider Hospitalist | DX: R60.0 Localized edema (principal); J98.59 Other diseases of mediastinum, not elsewhere classified; R01.1 Cardiac murmur, unspecified | CPT/HCPCS: 99223; 99233 ==

== ENCOUNTER → 2023-05-15 23:50 | Outpatient (BNV) | payer OTHER, SELFPAY | PROVIDERS: Admitting Provider Internal Medicine; Emergency Provider Internal Medicine; PCP Internal Medicine Geriatric Medicine; Visit Provider Nurse Practitioner Acute Care | DX: I48.21 Permanent atrial fibrillation (principal); I50.812 Chronic right heart failure; E11.9 Type 2 diabetes mellitus without complications; R60.0 Localized edema; Z95.0 Presence of cardiac pacemaker | CPT/HCPCS: 99223; 99232; 99239; G0180 ==

== ENCOUNTER → 2023-05-15 23:50 | Outpatient (BNV) | payer OTHER, SELFPAY | PROVIDERS: Admitting Provider Internal Medicine; Emergency Provider Internal Medicine; PCP Internal Medicine Geriatric Medicine; Visit Provider Internal Medicine Cardiovascular Disease | DX: I50.810 Right heart failure, unspecified (principal); I48.19 Other persistent atrial fibrillation | CPT/HCPCS: 99222 ==

== ENCOUNTER → 2023-05-17 23:59 | Outpatient (BNV) | payer OTHER, SELFPAY ==
--- NOTE | 2023-05-18 08:39 | A.OFFVIS_ITS ---
Intake Intake Visit Reasons: Remote Device Check- Medtronic Allergies NSAIDS due to CKD Allergy (Unknown, Uncoded 12/26/22 12:42) n/a [facility] Medical History Tricuspid regurgitation Kidney disease Pleuritic chest pain Cough Hemoptysis History of CVA with residual deficit (~04/2005) History of COVID-19 (~06/2020) SDH (subdural hematoma) Essential hypertension Normally functioning cardiac pacemaker present (~2006) Atherosclerotic cardiovascular disease Hyperlipidemia GERD (gastroesophageal reflux disease) Pacemaker (~2006) Diabetes mellitus Persistent atrial fibrillation Surgical History History of heart artery stent History of craniotomy History of permanent cardiac pacemaker placement (~09/2006) Family History Father No problems noted. Mother No problems noted. 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 Overall normal device function. [id number] Cardiac Device Interrogation, pacemaker Procedure code (CPT) selection complete Assessment & Plan Assessment & Plan (1) Persistent atrial fibrillation: Code(s): I48.19 - Other persistent atrial fibrillation Plan x Coding Level of Care Code Procedure Only Diagnoses Persistent atrial fibrillation I48.19 CPT Codes Cardiac Device Check - Cardiac Device 12: [id number] Cardiac Device Interrogation, pacemaker ([id number])
== END ==
PROVIDERS: PCP Internal Medicine Geriatric Medicine; Visit Provider Internal Medicine
DX: I48.19 Other persistent atrial fibrillation (principal); Z95.0 Presence of cardiac pacemaker
CPT/HCPCS: 93294

== ENCOUNTER 2023-05-22 12:55 | Outpatient (REF) | payer OTHER, SELFPAY ==
[2023-05-22 13:24] LABS: Anion Gap 14 (12-20); Blood Urea Nitrogen 37 mg/dL (9-16); Calcium 9.3 mg/dL (8.4-10.2); Carbon Dioxide 32 mmol/L (22-29); Chloride 96 mmol/L (96-108); Estimated Glomerular Filt Rate 37; Glucose Random 163 mg/dL (60-115); Potassium 3.3 mmol/L (3.3-5.1); Sodium 139 mmol/L (135-145)
== END 2023-05-22 12:56 | disposition home or self-care (01) ==
LOC: HO.HVNA 12:55
PROVIDERS: Visit Provider Internal Medicine Geriatric Medicine
DX: I50.9 Heart failure, unspecified (principal)
CPT/HCPCS: 36415; 80048; 83735

== ENCOUNTER 2023-05-24 15:43 | Outpatient (REF) | payer OTHER, SELFPAY ==
--- NOTE | ~2023-05-24 | XR_ITS ---
EXAMINATION: XR SHOULDER, RIGHT CLINICAL INFORMATION: Decreased range of motion, pain. COMPARISON: CT chest 05/16/2023. Radiograph of the right shoulder 04/25/2012. TECHNIQUE: Four views of the right shoulder. FINDINGS: There is mild acromioclavicular osteoarthritis. Glenohumeral joint is well preserved. No fracture. Alignment is anatomic. Soft tissues are normal with no abnormal calcifications. XR/XR shoulder RT min 2V IMPRESSION: 1. No acute fractures or malalignment. 2. Mild acromioclavicular osteoarthritis.
== END 2023-05-24 15:44 | disposition home or self-care (01) ==
LOC: HO.HHCX 15:43
PROVIDERS: Visit Provider Internal Medicine Geriatric Medicine
DX: M25.511 Pain in right shoulder (principal)
CPT/HCPCS: 73030

== ENCOUNTER 2023-05-24 16:11 | Outpatient (REF) | payer OTHER, SELFPAY ==
[2023-05-24 18:16] LABS: Anion Gap 14 (12-20); Blood Urea Nitrogen 46 mg/dL (9-16); Calcium 9.4 mg/dL (8.4-10.2); Carbon Dioxide 33 mmol/L (22-29); Chloride 94 mmol/L (96-108); Estimated Glomerular Filt Rate 31; Glucose Random 212 mg/dL (60-115); Potassium 3.6 mmol/L (3.3-5.1); Sodium 137 mmol/L (135-145)
== END 2023-05-24 16:12 | disposition home or self-care (01) ==
LOC: HO.HHCL 16:11
PROVIDERS: Family Medicine; Visit Provider Internal Medicine Geriatric Medicine
DX: N18.32 Chronic kidney disease, stage 3b (principal); I50.9 Heart failure, unspecified
CPT/HCPCS: 36415; 80048; 83735

== ENCOUNTER 2023-06-26 12:38 | Outpatient (AMB) | payer OTHER, SELFPAY ==
--- NOTE | 2023-06-26 12:41 | MHC.OFFVIS ---
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 Accompanied by: Self / Same As Patient Allergies NSAIDS due to CKD Allergy (Unknown, Uncoded 12/26/22 12:42) n/a Medication List - Last Reconciled 06/26/23 by Jon Stuart MD acetaminophen ER 650 mg PO Q12H PRN albuterol sulfate 90 mcg/actuation (Ventolin HFA) 2 puffs inhalation Q6H PRN amlodipine 2.5 mg PO QAM apixaban (Eliquis) 2.5 mg PO BID blood sugar diagnostic As directed blood-glucose meter (FreeStyle [place] Lite kit) As directed calcitriol 0.25 mcg PO Q OTHER DAY carvedilol 3.125 mg PO BID ferrous sulfate 325 mg PO DAILY fluticasone propionate 50 mcg/actuation 2 sprays intranasal DAILY 30 days gabapentin 100 mg PO QPM insulin aspart U-100 (Novolog FlexPen U-100 Insulin aspart) 10 units subcut DAILY@0730 insulin aspart U-100 (Novolog FlexPen U-100 Insulin aspart) 8 units subcut DAILY@1130 insulin aspart U-100 (Novolog FlexPen U-100 Insulin aspart) 12 units subcut DAILY@1730 insulin degludec (Tresiba FlexTouch U-100 insulin) 28 units subcut BEDTIME lancets As directed metolazone weekly omeprazole 20 mg PO DAILY pen needle, diabetic (BD Ultra-Fine Short Pen Needle) As directed rosuvastatin 10 mg PO DAILY spironolactone 12.5 mg PO QAM torsemide 80 mg (4 x 20 mg) PO DAILY HPI HPI Comments History of Present Illness Details Dk returns for follow-up regarding atrial fibrillation, coronary disease and other concerns. He used to live here, then moved to [place] for some time, then moved back here. He has a history of coronary artery disease and underwent cardiac catheterization in [place] following an abnormal stress test. This showed diffuse CAD and he underwent stenting of the diagonal. He also has a history of chronic atrial fibrillation on Eliquis. He has had a stroke around 2004. He also has a history of pacemaker placement from 2006 with generator change in 2013 and again 2022. Other issues include type 2 diabetes, hypertension, dyslipidemia, chronic kidney disease. One fall in the past that led to a subdural hematoma that required drainage. Apparently, anticoagulation was briefly on hold and then resumed based on [place] records. Few weeks back, it seems that he had admission for right heart failure. Then diuretics change in that he is back home. States generally doing okay. [facility] Medical History Tricuspid regurgitation Kidney disease Pleuritic chest pain Cough Hemoptysis History of CVA with residual deficit (~04/2005) History of COVID-19 (~06/2020) SDH (subdural hematoma) Essential hypertension Normally functioning cardiac pacemaker present (~2006) Atherosclerotic cardiovascular disease Hyperlipidemia GERD (gastroesophageal reflux disease) Pacemaker (~2006) Diabetes mellitus Persistent atrial fibrillation Surgical History History of heart artery stent History of craniotomy History of permanent cardiac pacemaker placement (~09/2006) Family History Father No problems noted. Mother No problems noted. Social History Household Members: None Housing: Apartment Do you presently have visiting nurse or other home services: Yes Alcohol intake: unknown Comment: able to verbalize back the need to use call perez if he needs to get OOB Patient Tobacco Use Status: Former Tobacco user Quit Date: >30 yrs ago Second Hand Smoke Exposure: No service: No Current occupational status: retired Review of Systems Const Reports chills, Reports fatigue, Reports fever(s), Reports frequent falls, Reports weakness, Reports weight gain and Reports weight loss ENT Reports dizziness Card Reports chest pain, Reports leg edema, Reports lightheadedness, Reports palpitations, Reports dyspnea and Reports dyspnea on exertion Resp Reports cough, Reports dyspnea and Reports dyspnea on exertion GI Reports hematochezia Musc Reports abnormal gait, Reports muscle weakness, Reports numbness, Reports radiating pain into limb and Reports tingling Neuro Reports abnormal gait, Reports dizziness, Reports frequent falls, Reports numbness, Reports tingling and Reports weakness Endo Reports fatigue and Reports palpitations Physical Exam Vital Signs: Last Vital Signs Pulse 81 06/26/23 12:42 BP 160/70 H 06/26/23 12:42 BMI result Body Mass Index 25.2 Const General: comfortable and no acute distress Orientation/consciousness: patient oriented x3 HEENT Other: Unremarkable Head: Yes normal to inspection Neck Neck: Yes normal visual inspection Chest Chest palpation & inspection: normal inspection of the chest Resp Auscultation: clear to auscultation bilaterally Cardio Palpation: normal PMI Heart sounds: S1 normal heart sound present, S2 normal heart sound present, no gallops, Murmur heart sound present systolic II/ and at the left sternal border and no rubs GI Palpation (GI): Soft to palpation Back/Spine/Pelvis Other: unremarkable Skin General skin exam: no rashes or lesions noted Neuro General: patient oriented x3 Extrem Other: 1+ edema L LE General: Yes normal to inspection Psych Mental Status: mental status grossly normal Assessment & Plan Assessment & Plan (1) Atherosclerotic cardiovascular disease: Code(s): I25.10 - Atherosclerotic heart disease of [place] coronary artery without angina pectoris Plan: Cardiac tqzpojjkdzeodup-[id number]-status post diagonal stent, KRISTIE; nonobstructive disease LAD; moderate small-vessel disease in circumflex and RCA to be medically managed Continue beta-blockers and statins. He has a history of subdural bleed. Hence no need for antiplatelet agents in addition to Eliquis. Last LDL cholesterol 59 mg/dL. Overall, remains stable. (2) Persistent atrial fibrillation: Code(s): I48.19 - Other persistent atrial fibrillation Plan: Continue Eliquis. On Coreg. (3) Chronic right heart failure: Code(s): I50.812 - Chronic right heart failure Plan: Listed to be on torsemide/metolazone. Could add Farxiga if approved by insurance. (4) Pericardial effusion: Code(s): I31.3 - Pericardial effusion (noninflammatory) Plan: Small pericardial effusion thought to be related to renal insufficiency. No intervention required. (5) Essential hypertension: Code(s): I10 - Essential (primary) hypertension Plan: Slightly high blood pressure today. In the past, has been up and down. On amlodipine. Unfortunately, patient cannot recall the medications and hence difficult to change anything. (6) SDH (subdural hematoma): Code(s): S06.5X9A - Traumatic subdural hemorrhage with loss of consciousness of unspecified duration, initial encounter Plan: No recurrent issues. (7) Normally functioning cardiac pacemaker present: Onset Date: ~2006 Comment: (Medtronic SCPP - placed 2006, generator change 2013) Code(s): Z95.0 - Presence of cardiac pacemaker Plan: Status post generator change 09/2022. Normal function. Coding Level of Care Code Est Pt Level 4 (04071) Procedure Only Diagnoses Atherosclerotic cardiovascular disease I25.10 Persistent atrial fibrillation I48.19 Chronic right heart failure I50.812 Pericardial effusion I31.3 Essential hypertension I10 SDH (subdural hematoma) S06.5X9A Normally functioning cardiac pacemaker present Z95.0
[2023-06-26 12:42] VITALS: BP 160/70; PULSE 81; BMI 25.2
== END 2023-06-26 13:08 | disposition home or self-care (01) ==
PROVIDERS: PCP Internal Medicine Geriatric Medicine; Visit Provider Internal Medicine
DX: I25.10 Atherosclerotic heart disease of native coronary artery without angina pectoris (principal); I48.19 Other persistent atrial fibrillation; I50.812 Chronic right heart failure; I31.39 Other pericardial effusion (noninflammatory); I10 Essential (primary) hypertension; S06.5X9A Traumatic subdural hemorrhage with loss of consciousness of unspecified duration, initial encounter; Z95.0 Presence of cardiac pacemaker
CPT/HCPCS: 99214

== ENCOUNTER → 2023-06-26 12:38 | Outpatient (BNVA) | payer OTHER, SELFPAY | PROVIDERS: PCP Internal Medicine Geriatric Medicine; Visit Provider Internal Medicine | DX: I25.10 Atherosclerotic heart disease of native coronary artery without angina pectoris (principal); I48.19 Other persistent atrial fibrillation; I50.812 Chronic right heart failure; I31.39 Other pericardial effusion (noninflammatory); S06.5X9D Traumatic subdural hemorrhage with loss of consciousness of unspecified duration, subsequent encounter; Z95.0 Presence of cardiac pacemaker; Z79.01 Long term (current) use of anticoagulants | CPT/HCPCS: 99212 ==

== ENCOUNTER → 2023-08-16 23:59 | Outpatient (BNV) | payer OTHER, SELFPAY ==
--- NOTE | 2023-08-20 13:09 | A.OFFVIS_ITS ---
Intake Intake Visit Reasons: Remote Device Check- Medtronic Allergies NSAIDS due to CKD Allergy (Unknown, Uncoded 12/26/22 12:42) n/a [facility] Medical History Tricuspid regurgitation Kidney disease Pleuritic chest pain Cough Hemoptysis History of CVA with residual deficit (~04/2005) History of COVID-19 (~06/2020) SDH (subdural hematoma) Essential hypertension Normally functioning cardiac pacemaker present (~2006) Atherosclerotic cardiovascular disease Hyperlipidemia GERD (gastroesophageal reflux disease) Pacemaker (~2006) Diabetes mellitus Persistent atrial fibrillation Surgical History History of heart artery stent History of craniotomy History of permanent cardiac pacemaker placement (~09/2006) Family History Father No problems noted. Mother No problems noted. 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 Overall normal device function. [id number] Cardiac Device Interrogation, pacemaker Procedure code (CPT) selection complete Assessment & Plan Assessment & Plan (1) Persistent atrial fibrillation: Code(s): I48.19 - Other persistent atrial fibrillation Plan x Coding Level of Care Code Procedure Only Diagnoses Persistent atrial fibrillation I48.19 CPT Codes Cardiac Device Check - Cardiac Device 12: [id number] Cardiac Device Interrogation, pacemaker ([id number])
== END ==
PROVIDERS: PCP Internal Medicine Geriatric Medicine; Visit Provider Internal Medicine
DX: I48.19 Other persistent atrial fibrillation (principal); Z95.0 Presence of cardiac pacemaker
CPT/HCPCS: 93294

== ENCOUNTER 2023-09-04 13:15 | Outpatient (AMB) | payer OTHER, SELFPAY ==
--- NOTE | 2023-09-04 13:19 | A.OFFVIS_ITS ---
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 The patient complains of a chronic cough and chest congestion. He does have a hard time expectorating. At times he notices some specks of blood in the sputum. Usually scant. the patient has had some chest pressure and pain substernal area. Pleuritic in nature. Some degree it is reproducible suggesting costochondritis. Although not completely certain. He also complains of nasal congestion also has had some epistaxis. The patient also was diagnosed with a mediastinal mass. He did follow-up with thoracic surgery and has serial CT scans of the chest. The decision that time was to continue monitoring the anterior mediastinal mass with serial CT scans. His last CT scan of the chest was back in October 2021. however, now with his worsening cough and hemoptysis it will be prudent to follow-up with the mediastinal mass at this time. 09/04/2023 the patient is here for a pulm onary follow-up visit. The patient is doing well from a respiratory status. Denies any shortness breath denies any weight loss or night sweats. He had been in the hospital back in May. He did have a repeat CT scan of the chest and it demonstrated that the mediastinal mass it increased in size. Had been evaluated previously by thoracic surgery but since the mask was not changing in size was felt that conservative management was best. But now the mask is appearing to be increasing in size then a surgical approach may be a better option. Will plan to repeat the CT scan at this time and also present him at tumor conference to see if any other s uggestions,. Otherwise the patient is aware that if his mediastinal mass seems to be getting worse then he will be referred to thoracic surgery again. Otherwise respiratory status stable. I did reach out to his primary care. [facility] Medical History Tricuspid regurgitation Kidney disease Pleuritic chest pain Cough Hemoptysis History of CVA with residual deficit (~04/2005) History of COVID-19 (~06/2020) SDH (subdural hematoma) Essential hypertension Normally functioning cardiac pacemaker present (~2006) Atherosclerotic cardiovascular disease Hyperlipidemia GERD (gastroesophageal reflux disease) Pacemaker (~2006) Diabetes mellitus Persistent atrial fibrillation Surgical History History of heart artery stent History of craniotomy History of permanent cardiac pacemaker placement (~09/2006) Family History Father No problems noted. Mother No problems noted. Social History Household Members: None Housing: Apartment Do you presently have visiting nurse or other home services: Yes Alcohol intake: unknown Comment: able to verbalize back the need to use call perez if he needs to get OOB Patient Tobacco Use Status: Former Tobacco user Quit Date: >30 yrs ago Second Hand Smoke Exposure: No service: No Current occupational status: retired Review of Systems Const Denies weakness Eyes Denies change in vision ENT Denies change in voice, Denies dizziness, Denies epistaxis, Reports nasal congestion and Reports nasal discharge Card Denies chest pain, Denies chest pain with activity, Denies syncope, Denies rapid heart rate, Denies pedal edema, Denies edema, Denies leg edema, Denies lightheadedness, Denies palpitations, Denies dyspnea, Denies dyspnea on exertion and Denies orthopnea Resp Denies change in phlegm color, Reports chest congestion, Reports cough, Denies hemoptysis, Denies pain on inspiration, Denies pain with cough, Denies dyspnea and Denies dyspnea on exertion GI Denies hematochezia and Denies change in stool character Musc Denies abnormal gait, Denies muscle weakness, Denies numbness, Denies radiating pain into limb and Denies tingling Neuro Denies Abnormal speech present, Denies abnormal gait, Denies dizziness, Denies syncope, Denies numbness, Denies tingling and Denies weakness Endo Denies palpitations Physical Exam Vital Signs: Last Vital Signs Pulse 91 09/04/23 13:24 Pulse Ox 96 09/04/23 13:24 Oxygen Delivery Method Room Air 09/04/23 13:24 BMI result Body Mass Index 24.7 Const General: comfortable and no acute distress Orientation/consciousness: patient oriented x3 HEENT Other: Unremarkable Head: Yes normal to inspection Neck Neck: Yes normal visual inspection Chest Chest palpation & inspection: normal inspection of the chest Resp Auscultation: clear to auscultation bilaterally Cardio Palpation: normal PMI Heart sounds: S1 normal heart sound present, S2 normal heart sound present, no gallops, Murmur heart sound present systolic II/ and at the left sternal margie rder and no rubs GI Palpation (GI): Soft to palpation Back/Spine/Pelvis Other: unremarkable Skin General skin exam: no rashes or lesions noted Neuro General: patient oriented x3 Speech: No Abnormal speech present Extrem Other: 1+ edema L LE General: Yes normal to inspection Psych Mental Status: mental status grossly normal Results Reviewed Results Reviewed: [place] [id number] CT Scan Report Signed Patient: Dk Sepulveda MR#: [id number] : 1940 Acct:[id number] Age/Sex: 82 / M ADM Date: 05/15/23 Loc: [facility] [place]: Ray Suggs MD Ordering Physician: Ray Suggs MD Date of Service: 05/16/23 Procedure(s): CT chest wo IV con Accession Number(s): [id number] cc: Ray Suggs MD; Name,Juan M BLUE~ EXAMINATION: CT CHEST WITHOUT CONTRAST CLINICAL INFORMATION: Assess anterior mediastinal mass COMPARISON: 08/15/2022 TECHNIQUE: Multidetector volumetric CT imaging of the chest was done. Axial MIP volume rendering provided. Sagittal and coronal reformatted images were obtained. This CT examination was performed using dose optimization techniques as appropriate, variously including the following: *Automated exposure control *Adjustment of mA and/or kV according to patient size (this includes techniques or standardized protocols for targeted exams where dose is matched to indication/reason for exam; i.e. extremities or head) *Use of iterative reconstruction technique DLP: 235 mGy-cm FINDINGS: LUNGS: Mild subsegmental atelectasis bilaterally without additional consolidation. MEDIASTINUM: The visualized thyroid gland is unremarkable. Anterior mediastinal mass measures approximately 4.4 x 2.9 cm on image 17/61 previously 3.2 x 2.4 cm measured in similar fashion on 08/15/2022. Scattered mediastinal lymph nodes, measuring up to the upper limits of normal in size and the right paratracheal region. Redemonstrated cardiomegaly with pericardial effusion adjacent to the right atrium. Scattered calcification along the aorta. Left-sided pacemaker lead tips extend to the right ventricle. CORONARY ARTERY CALCIFICATION: Present PLEURA: No pneumothorax or pleural effusion. AXILLA: Multiple mildly prominent bilateral axillary lymph nodes are similar to prior. UPPER ABDOMEN: Visualized spleen is enlarged, measuring up to 14.2 cm in the axial plane. OSSEOUS STRUCTURES: Degenerative changes are noted in the spine. CT/CT chest wo IV con IMPRESSION: 1. Anterior mediastinal mass measuring up to 4.4 cm, increased in size from 08/15/2022. 2. Redemonstrated cardiomegaly with pericardial effusion adjacent to the right atrium. 3. Splenomegaly. 4. Mildly prominent bilateral axillary lymph nodes, similar to prior. Dictated By: John Anne MD Signed By: <Electronically signed by John Anne MD in [place]> 05/16/23 0632 DD/ 0554 TD/TT: Eligibility Examiner: Assessment & Plan Assessment & Plan (1) Mediastinal mass: Code(s): J98.59 - Other diseases of mediastinum, not elsewhere classified (2) Cough: Comment: upper airway cough syndrome Code(s): R05.9 - Cough, unspecified Qualifiers: Cough type: chronic Qualified Code(s): R05.3 - Chronic cough Plan Repeat CT chest, if mediastinal mass, appears to be increasing in size. Non contrast due to CRI Will discuss during Monday Conference with Thoracic surgery. start fluticasone nasal spray F/U 3-4months Orders: Orders CT chest wo IV con Today J98.59 - Other diseases of mediastinum, not elsewhere classified Coding Level of Care Code Est Pt Level 4 (05211) Diagnoses Mediastinal mass J98.59 Chronic cough R05.3 Cough type: chronic Time Spent (min) 17
[2023-09-04 13:24] VITALS: PULSE 91; O2SAT 96; BMI 24.7
== END 2023-09-04 13:52 | disposition home or self-care (01) ==
PROVIDERS: PCP Internal Medicine Geriatric Medicine; Visit Provider Hospitalist
DX: J98.59 Other diseases of mediastinum, not elsewhere classified (principal); R05.3 Chronic cough
CPT/HCPCS: 99214

== ENCOUNTER → 2023-09-04 13:15 | Outpatient (BNVA) | payer OTHER, SELFPAY | PROVIDERS: Visit Provider Hospitalist | DX: J98.59 Other diseases of mediastinum, not elsewhere classified (principal); R05.9 Cough, unspecified | CPT/HCPCS: 99212 ==

== ENCOUNTER 2023-10-12 15:02 | Outpatient (REF) | payer OTHER, SELFPAY ==
--- NOTE | ~2023-10-12 | CT_ITS ---
EXAMINATION: CT CHEST WITHOUT CONTRAST CLINICAL INFORMATION: Anterior mediastinal mass. COMPARISON: 05/16/2023 and 08/15/2022 TECHNIQUE: Multidetector volumetric CT imaging of the chest was done. Axial MIP volume rendering provided. Sagittal and coronal reformatted images were obtained. This CT examination was performed using dose optimization techniques as appropriate, variously including the following: *Automated exposure control *Adjustment of mA and/or kV according to patient size (this includes techniques or standardized protocols for targeted exams where dose is matched to indication/reason for exam; i.e. extremities or head) *Use of iterative reconstruction technique DLP: 165 mGy-cm FINDINGS: LUNGS: No suspicious pulmonary nodule. No focal consolidation. Central airways are patent. MEDIASTINUM: Anterior mediastinal mass measures 4.9 x 3.6 cm in transverse dimensions. Previous measurements were 4.6 x 3.1 cm when measured in a similar fashion. No bulky hilar or mediastinal lymphadenopathy. Ascending thoracic aorta measures 3.9 x 3.9 cm in transverse dimension. The heart is enlarged. There is a moderate pericardial effusion. Left chest wall pacing device with leads in stable position. Nonspecific esophageal wall thickening. Patulous esophagus. CORONARY ARTERY CALCIFICATION: Marked. PLEURA: No pneumothorax or pleural effusion. AXILLA: Multiple prominent bilateral axillary lymph nodes are similar to prior. UPPER ABDOMEN: Questionable abnormal contour of the tail of the pancreas. No adrenal mass. Cholelithiasis. Splenomegaly. OSSEOUS STRUCTURES: No destructive bone lesion. CT/CT chest wo IV con IMPRESSION: 1. Interval increase in size of anterior mediastinal mass measuring 4.9 x 3.6 cm. 2. Redemonstrated cardiomegaly with moderate pericardial effusion. 3. Suspected contour abnormality of the tail of the pancreas. Further cross-sectional imaging correlation is advised. 4. Cholelithiasis.
== END 2023-10-12 15:03 | disposition home or self-care (01) ==
LOC: HO.CT 15:02
PROVIDERS: PCP Internal Medicine Geriatric Medicine; Visit Provider Hospitalist
DX: J98.59 Other diseases of mediastinum, not elsewhere classified (principal)
CPT/HCPCS: 71250

== ENCOUNTER 2023-10-17 08:04 | Outpatient (REF) | payer OTHER, SELFPAY ==
[2023-10-17 11:46] LABS: MANUAL DIFF FLAG NO
[2023-10-17 11:57] LABS: Basophils Percent Auto 0.2 % (0-2); Eosinophils Absolute Auto 0.1 X10*3/uL (0.0-0.4); Eosinophils Percent Auto 1.7 % (0-4); Hematocrit 30.8 % (42.0-52.0); Hemoglobin 10.1 g/dl (14.0-18.0); Imm Gran Abs Auto 0.03 X10*3/uL (0.00-0.03); Imm Gran Pct Auto 0.5 % (0.0-0.4); Lymphocytes Absolute Auto 1.4 X10*3/uL (1.2-4.9); Lymphocytes Percent Auto 23.5 % (20-40); Mean Corpuscular HGB Conc 32.8 g/dl (31.0-36.0); Mean Corpuscular Hemoglobin 29.6 pg (27.0-33.0); Mean Corpuscular Volume 90.3 fL (80.0-98.0); Mean Platelet Volume 10.3 fL (9.4-12.4); Monocytes Absolute Auto 0.6 X10*3/uL (0.1-1.2); Monocytes Percent Auto 9.9 % (2-11); Neutrophils Absolute Auto 3.8 x10*3/uL (2.0-8.3); Neutrophils Percent Auto 64.2 % (45-73); Platelet Count 135 X10*3/uL (160-400); Red Blood Count 3.41 X10*6/uL (4.60-5.80); Red Cell Distribution Width 15.8 % (11.0-16.0); White Blood Count 5.9 X10*3/uL (4.8-10.8)
[2023-10-17 12:20] LABS: Anion Gap 14 (12-20); Blood Urea Nitrogen 44 mg/dL (9-16); Carbon Dioxide 27 mmol/L (22-29); Chloride 104 mmol/L (96-108); Estimated Glomerular Filt Rate 32; Glucose Random 145 mg/dL (60-115); Potassium 3.7 mmol/L (3.3-5.1); Sodium 141 mmol/L (135-145)
== END 2023-10-17 08:05 | disposition home or self-care (01) ==
LOC: HO.HHCL 08:04
PROVIDERS: Visit Provider Internal Medicine Geriatric Medicine
DX: I12.9 Hypertensive chronic kidney disease with stage 1 through stage 4 chronic kidney disease, or unspecified chronic kidney disease (principal); E11.22 Type 2 diabetes mellitus with diabetic chronic kidney disease; N18.32 Chronic kidney disease, stage 3b
CPT/HCPCS: 36415; 80048; 85025

== ENCOUNTER 2023-10-24 15:34 | Outpatient (AMB) | payer OTHER, SELFPAY ==
--- NOTE | 2023-10-24 15:38 | MHC.OFFVIS ---
Vital Signs 10/24/23 15:47 Height 5 ft 7 in Weight 167 lb BMI 26.2 BP 144/67 H Blood Pressure Location Rt brachial Position Sitting Pulse 90 Intake Visit Reasons: Mediastinal mass Intake Note: Patient referred by Dr. Squires for mediastinal mass. Patient c/o: fatigue. Denies SOB. Chest ST: 10-12-23. 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 Patient has an anterior mediastinal mass which was been seen on sequential CT scans which is increasing in size, becoming more suspicious and concerning. Patient is being followed by Dr. Squires of Pulmonary and he strongly recommends the patient be evaluated for therapeutic options. Patient will had his case also presented at the multidisciplinary lung cancer conference recently. Patient herself has no chest current mediastinal symptoms or complaints. He has a plethora of medical problems but nothing related to this mediastinal mass. Chart was reviewed patient evaluated [facility] Medical History Tricuspid regurgitation Kidney disease Pleuritic chest pain Cough Hemoptysis History of CVA with residual deficit (~04/2005) History of COVID-19 (~06/2020) SDH (subdural hematoma) Essential hypertension Normally functioning cardiac pacemaker present (~2006) Atherosclerotic cardiovascular disease Hyperlipidemia GERD (gastroesophageal reflux disease) Pacemaker (~2006) Diabetes mellitus Persistent atrial fibrillation Surgical History History of heart artery stent History of craniotomy History of permanent cardiac pacemaker placement (~09/2006) Family History Father No problems noted. Mother No problems noted. Social History Household Members: None Housing: Apartment Do you presently have visiting nurse or other home services: Yes Alcohol intake: unknown Comment: able to verbalize back the need to use call perez if he needs to get OOB Patient Tobacco Use Status: Former Tobacco user Quit Date: >30 yrs ago Second Hand Smoke Exposure: No service: No Current occupational status: retired Physical Exam Vital Signs: Last Vital Signs Pulse 90 10/24/23 15:47 BP 144/67 H 10/24/23 15:47 BMI result Body Mass Index 26.2 Chest Other: Chest breath sounds bilaterally, HS 1 in 2 no evidence of any periclavicular axillary or cervical adenopathy bilaterally. GI Other: Abdomen is soft, benign Assessment & Plan Assessment & Plan (1) Thymoma: Code(s): D49.89 - Neoplasm of unspecified behavior of other specified sites Category: Surgical Plan Therapeutic options were reviewed with the patient's daughter which include continued observation or surgical excision. Discussion was had regarding VATS possible open thymectomy and the risks, benefits and alternatives of the procedure were reviewed which included but not limited to bleeding, infection, recurrence, numbness, pain, scarring and after discussion with his daughter, patient wishes to proceed. He is on anticoagulation which will need to be addressed along with cardiac evaluation. All questions answered. Patient is leaving for vacation for 1 month's time in [place] and wishes to have the procedure done upon his return. Arrangements were made for this. Coding Level of Care Code New Pt Level 5 (88209) Diagnoses Thymoma D49.89
[2023-10-24 15:47] VITALS: BP 144/67; PULSE 90; BMI 26.2
== END 2023-10-24 16:02 | disposition home or self-care (01) ==
PROVIDERS: PCP Internal Medicine Geriatric Medicine; Visit Provider Surgery
DX: D49.89 Neoplasm of unspecified behavior of other specified sites (principal)
CPT/HCPCS: 99205

== ENCOUNTER → 2023-10-24 15:34 | Outpatient (BNVA) | payer OTHER, SELFPAY | PROVIDERS: PCP Internal Medicine Geriatric Medicine; Visit Provider Surgery | DX: D49.89 Neoplasm of unspecified behavior of other specified sites (principal) | CPT/HCPCS: 99202 ==

== ENCOUNTER → 2023-11-26 23:59 | Outpatient (BNV) | payer OTHER, SELFPAY ==
--- NOTE | 2023-12-03 19:01 | MHC.OFFVIS ---
Intake Visit Reasons: Remote device check- Medtronic Allergies NSAIDS due to CKD Allergy (Unknown, Uncoded 11/30/23 13:11) n/a [facility] Medical History Tricuspid regurgitation Kidney disease Pleuritic chest pain Cough Hemoptysis History of CVA with residual deficit (~04/2005) History of COVID-19 (~06/2020) SDH (subdural hematoma) Essential hypertension Normally functioning cardiac pacemaker present (~2006) Atherosclerotic cardiovascular disease Hyperlipidemia GERD (gastroesophageal reflux disease) Pacemaker (~2006) Diabetes mellitus Persistent atrial fibrillation Surgical History History of heart artery stent History of craniotomy History of permanent cardiac pacemaker placement (~09/2006) Family History Father No problems noted. Mother No problems noted. 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 Overall normal device function. [id number] Cardiac Device Interrogation, pacemaker Procedure code (CPT) selection complete Assessment & Plan Assessment & Plan (1) Persistent atrial fibrillation: Code(s): I48.19 - Other persistent atrial fibrillation Category: Medical Plan x Coding Level of Care Code Procedure Only Diagnoses Persistent atrial fibrillation I48.19 CPT Codes Cardiac Device Check - Cardiac Device 12: [id number] Cardiac Device Interrogation, pacemaker ([id number])
== END ==
PROVIDERS: PCP Internal Medicine Geriatric Medicine; Visit Provider Internal Medicine
DX: I48.19 Other persistent atrial fibrillation (principal); Z95.0 Presence of cardiac pacemaker
CPT/HCPCS: 93294

== ENCOUNTER 2023-11-30 13:06 | Outpatient (AMB) | payer OTHER, SELFPAY ==
[2023-11-30 13:10] VITALS: PULSE 89; O2SAT 96; BMI 25.1
--- NOTE | 2023-11-30 13:10 | A.OFFVIS_ITS ---
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 The patient complains of a chronic cough and chest congestion. He does have a hard time expectorating. At times he notices some specks of blood in the sputum. Usually scant. the patient has had some chest pressure and pain substernal area. Pleuritic in nature. Some degree it is reproducible suggesting costochondritis. Although not completely certain. He also complains of nasal congestion also has had some epistaxis. The patient also was diagnosed with a mediastinal mass. He did follow-up with thoracic surgery and has serial CT scans of the chest. The decision that time was to continue monitoring the anterior mediastinal mass with serial CT scans. His last CT scan of the chest was back in October 2021. however, now with his worsening cough and hemoptysis it will be prudent to follow-up with the mediastinal mass at this time. 09/04/2023 the patient is here for a pulmonary follow-up visit. The patient is doing well from a respiratory status. Denies any shortness breath denies any weight loss or night sweats. He had been in the hospital back in May. He did have a repeat CT scan of the chest and it demonstrated that the mediastinal mass it increased in size. Had been evaluated previously by thoracic surgery but since the mask was not changing in size was felt that conservative management was best. But now the mask is appearing to be increasing in size then a surgical approach may be a better option. Will plan to repeat the CT scan at this time and also present him at tumor conference to see if any other suggestions,. Otherwise the patient is aware that if his mediastinal mass seems to be getting worse then he will be referred to thoracic surgery again. Othe rwise respiratory status stable. I did reach out to his primary care. 11/30/2023 the patient is here for a pulmonary follow-up visit. Overall he is doing well. Denies any shortness of breath or chest pain weight loss. Denies any difficulty swallowing. He is reluctant to undergo any biopsies of the mediastinal mass at this time. He understands that it is a concerning mask. We did review his imaging studies from back to 2020 to the most recent 2023 demonstrating interval increase in the size of the mask. He was referred to thoracic surgery for resection. However, due to his comorbidities it was felt that a biopsy would be a good 1st step. The patient does have a significant cardiovascular history. He has been arranged for biopsy this time. Although at this point the patient would like to hold off on it. I did talk to his daughter and explained to her the concerns of this potentially being a malignant process in the fact that her father does not want to have anything done yet. She is supporting his decision. Therefore, we will let thoracic surgery know that he would like to hold off on the biopsy will plan to repeat his CT scan in February to see any further progression. If the patient develops any worsening symptoms prior to that he will call for an earlier assessment. [facility] Medical History Tricuspid regurgitation Kidney disease Pleuritic chest pain Cough Hemoptysis History of CVA with residual deficit (~04/2005) History of COVID-19 (~06/2020) SDH (subdural hematoma) Essential hypertension Normally functioning cardiac pacemaker present (~2006) Atherosclerotic cardiovascular disease Hyperlipidemia GERD (gastroesophageal reflux disease) Pacemaker (~2006) Diabetes mellitus Persistent atrial fibrillation Surgical History History of heart artery stent History of craniotomy History of permanent cardiac pacemaker placement (~09/2006) Family History Father No problems noted. Mother No problems noted. Social History Household Members: None Housing: Apartment Do you presently have visiting nurse or other home services: Yes Alcohol intake: unknown Comment: able to verbalize back the need to use call perez if he needs to get OOB Patient Tobacco Use Status: Former Tobacco user Second Hand Smoke Exposure: No service: No Current occupational status: retired Review of Systems Const Denies weakness Eyes Denies change in vision ENT Denies change in voice, Denies dizziness, Denies epistaxis, Reports nasal congestion and Reports nasal discharge Card Denies chest pain, Denies chest pain with activity, Denies syncope, Denies rapid heart rate, Denies pedal edema, Denies edema, Denies leg edema, Denies lightheadedness, Denies palpitations, Denies dyspnea, Denies dyspnea on exertion and Denies orthopnea Resp Denies change in phlegm color, Reports chest congestion, Reports cough, Denies hemoptysis, Denies pain on inspiration, Denies pain with cough, Denies dyspnea and Denies dyspnea on exertion GI Denies hematochezia and Denies change in stool character Musc Denies abnormal gait, Denies muscle weakness, Denies numbness, Denies radiating pain into limb and Denies tingling Neuro Denies Abnormal speech present, Denies abnormal gait, Denies dizziness, Denies syncope, Denies numbness, Denies tingling and Denies weakness Endo Denies palpitations Physical Exam Vital Signs: Last Vital Signs Pulse 89 11/30/23 13:10 Pulse Ox 96 11/30/23 13:10 Oxygen Delivery Method Room Air 11/30/23 13:10 BMI result Body Mass Index 25.1 Const General: comfortable and no acute distress Orientation/consciousness: patient oriented x3 HEENT Other: Unremarkable Head: Yes normal to inspection Neck Neck: Yes normal visual inspection Chest Chest palpation & inspection: normal inspection of the chest Resp Auscultation: clear to auscultation bilaterally Cardio Palpation: normal PMI Heart sounds: S1 normal heart sound present, S2 normal heart sound present, no gallops, Murmur heart sound present systolic II/ and at the left sternal border and no rubs GI Palpation (GI): Soft to palpation Back/Spine/Pelvis Other: unremarkable Skin General skin exam: no rashes or lesions noted Neuro General: patient oriented x3 Speech: No Abnormal speech present Extrem Other: 1+ edema L LE General: Yes normal to inspection Psych Mental Status: mental status grossly normal Assessment & Plan Assessment & Plan (1) Thymoma: Code(s): D49.89 - Neoplasm of unspecified behavior of other specified sites Category: Surgical (2) Mediastinal mass: Code(s): J98.59 - Other diseases of mediastinum, not elsewhere classified Category: Medical (3) Cough: Comment: upper airway cough syndrome Code(s): R05.9 - Cough, unspecified Category: Medical Qualifiers: Cough type: chronic Qualified Code(s): R05.3 - Chronic cough Plan Repeat CT chest, if mediastinal mass in 3 months The patient requesting to hold off on the mediastinal mass biopsy fluticasone nasal spray F/U 3-4months Orders: Orders CT chest wo IV con 3 Months D49.89 - Neoplasm of unspecified behavior of other specified sites Coding Level of Care Code Est Pt Level 4 (15758) Diagnoses Thymoma D49.89 Mediastinal mass J98.59 Chronic cough R05.3 Cough type: chronic Time Spent (min) 17
== END 2023-11-30 13:35 | disposition home or self-care (01) ==
PROVIDERS: PCP Internal Medicine Geriatric Medicine; Visit Provider Hospitalist
DX: D49.89 Neoplasm of unspecified behavior of other specified sites (principal); J98.59 Other diseases of mediastinum, not elsewhere classified; R05.3 Chronic cough
CPT/HCPCS: 99214

== ENCOUNTER → 2023-11-30 13:06 | Outpatient (BNVA) | payer OTHER, SELFPAY | PROVIDERS: PCP Internal Medicine Geriatric Medicine; Visit Provider Hospitalist | DX: R05.3 Chronic cough (principal); R09.89 Other specified symptoms and signs involving the circulatory and respiratory systems; D49.89 Neoplasm of unspecified behavior of other specified sites; J98.59 Other diseases of mediastinum, not elsewhere classified | CPT/HCPCS: 99212 ==

== ENCOUNTER 2023-12-25 12:48 | Outpatient (AMB) | payer OTHER, SELFPAY ==
[2023-12-25 13:07] VITALS: BP 130/60; PULSE 78; BMI 25.8
--- NOTE | 2023-12-25 13:07 | MHC.OFFVIS ---
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 by: Self / Same As Patient Allergies NSAIDS due to CKD Allergy (Unknown, Uncoded 11/30/23 13:11) n/a Medication List - Last Reconciled 12/25/23 by Jon Stuart MD acetaminophen ER 650 mg PO Q12H PRN albuterol sulfate 90 mcg/actuation (Ventolin HFA) 2 puffs inhalation Q6H PRN amlodipine 2.5 mg PO QAM apixaban (Eliquis) 2.5 mg PO BID blood sugar diagnostic As directed blood-glucose meter (FreeStyle [place] Lite kit) As directed calcitriol 0.25 mcg PO Q OTHER DAY carvedilol 3.125 mg PO BID ferrous sulfate 325 mg PO DAILY fluticasone propionate 50 mcg/actuation 2 sprays intranasal DAILY 30 days furosemide 40 mg PO DAILY gabapentin 100 mg PO QPM insulin aspart U-100 (Novolog FlexPen U-100 Insulin aspart) 10 units subcut DAILY@0730 insulin aspart U-100 (Novolog FlexPen U-100 Insulin aspart) 8 units subcut DAILY@1130 insulin aspart U-100 (Novolog FlexPen U-100 Insulin aspart) 12 units subcut DAILY@1730 insulin degludec (Tresiba FlexTouch U-100 insulin) 28 units subcut BEDTIME lancets As directed metolazone weekly omeprazole 20 mg PO DAILY pen needle, diabetic (BD Ultra-Fine Short Pen Needle) As directed rosuvastatin 10 mg PO DAILY spironolactone 12.5 mg PO QAM torsemide 80 mg (4 x 20 mg) PO DAILY HPI Comments Details: Dk returns for follow-up regarding atrial fibrillation, coronary disease and other concerns. He used to live here, then moved to [place] for some time, then moved back here. He has a history of coronary artery disease and underwent cardiac catheterization in [place] following an abnormal stress test. This showed diffuse CAD and he underwent stenting of the diagonal. He also has a history of chronic atrial fibrillation on Eliquis. He has had a stroke around 2004. He also has a history of pacemaker placement from 2006 with generator change in 2013 and again 2022. Other issues include type 2 diabetes, hypertension, dyslipidemia, chronic kidney disease. One fall in the past that led to a subdural hematoma that required drainage. Apparently, anticoagulation was briefly on hold and then resumed based on [place] records. Then, one further hospitalization for right heart failure. Then diuretics were further adjusted. The last few months, no new concerns. Generally doing well. No cardiac issues like angina. [facility], [facility] Medical History Tricuspid regurgitation Kidney disease Pleuritic chest pain Cough Hemoptysis History of CVA with residual deficit (~04/2005) History of COVID-19 (~06/2020) SDH (subdural hematoma) Essential hypertension Normally functioning cardiac pacemaker present (~2006) Atherosclerotic cardiovascular disease Hyperlipidemia GERD (gastroesophageal reflux disease) Pacemaker (~2006) Diabetes mellitus Persistent atrial fibrillation Surgical History History of heart artery stent History of craniotomy History of permanent cardiac pacemaker placement (~09/2006) Family History Father No problems noted. Mother No problems noted. Social History Household Members: None Housing: Apartment Do you presently have visiting nurse or other home services: Yes Alcohol intake: unknown Comment: able to verbalize back the need to use call perez if he needs to get OOB Patient Tobacco Use Status: Former Tobacco user Second Hand Smoke Exposure: No service: No Current occupational status: retired Review of Systems Const All systems reviewed & are unremarkable except as noted in HPI and below Denies chills, Denies fatigue, Denies fever(s), Denies weight gain and Denies weight loss Eyes Reports as per HPI and Denies no additional complaints ENT Denies no additional complaints and Reports as per HPI Card Denies chest pain, Denies leg edema, Denies lightheadedness, Denies palpitations, Denies dyspnea on exertion and Denies orthopnea Resp Denies cough and Denies dyspnea on exertion GI Reports melena, Denies hematochezia and Denies change in stool character Reports no additional complaints and Reports as per HPI Musc Denies muscle weakness and Denies radiating pain into limb Skin/Breast Reports system reviewed and no additional complaints, except as documented Neuro Reports no additional complaints and Reports as per HPI Psych Reports no additional complaints and Reports as per HPI Endo Denies fatigue and Denies palpitations Russell/Lymph Reports no additional complaints and Reports as per HPI Aller/Immun Reports no additional complaints and Reports as per HPI Physical Exam Vital Signs: Last Vital Signs Pulse 78 12/25/23 13:07 BP 130/60 12/25/23 13:07 BMI result Body Mass Index 25.8 Const General: comfortable and no acute distress Orientation/consciousness: patient oriented x3 HEENT Other: Unremarkable Head: Yes normal to inspection Neck Neck: Yes normal visual inspection Chest Chest palpation & inspection: normal inspection of the chest Resp Auscultation: clear to auscultation bilaterally Cardio Palpation: normal PMI Heart sounds: S1 normal heart sound present, S2 normal heart sound present, no gallops, no murmurs and no rubs GI Palpation (GI): Soft to palpation Back/Spine/Pelvis Other: unremarkable Skin General skin exam: no rashes or lesions noted Neuro General: patient oriented x3 Extrem General: Yes normal to inspection Psych Mental Status: mental status grossly normal Office Procedures Cardiac Device Check Cardiac Device Check Details: Pacemaker interrogated today. Single-chamber device, programmed VVIR. Battery status about 12 years. Ventricular pacing > 99%. Normal lead parameters. No significant episodes. Overall, normal device function. [id number] Cardiac Device Check, leadless/single lead pacemaker Procedure code (CPT) selection complete Assessment & Plan Assessment & Plan (1) Atherosclerotic cardiovascular disease: Code(s): I25.10 - Atherosclerotic heart disease of sun'aq coronary artery without angina pectoris Category: Medical Plan: Cardiac [id number]-status post diagonal stent, KRISTIE; nonobstructive disease LAD; moderate small-vessel disease in circumflex and RCA to be medically managed Continue beta-blockers and statins. He has a history of subdural bleed. Hence no need for antiplatelet agents in addition to Eliquis. Last LDL cholesterol 59 mg/dL. Overall, remains stable. (2) Persistent atrial fibrillation: Code(s): I48.19 - Other persistent atrial fibrillation Category: Medical Plan: Continue Eliquis. On Coreg. (3) Chronic right heart failure: Code(s): I50.812 - Chronic right heart failure Category: Medical Plan: Listed to be on torsemide/metolazone. No changes. (4) Pericardial effusion: Code(s): I31.3 - Pericardial effusion (noninflammatory) Category: Medical Plan: Small pericardial effusion thought to be related to renal insufficiency. No intervention required. Recheck echocardiogram. (5) Essential hypertension: Code(s): I10 - Essential (primary) hypertension Category: Medical Plan: Stable. No changes. (6) SDH (subdural hematoma): Code(s): S06.5X9A - Traumatic subdural hemorrhage with loss of consciousness of unspecified duration, initial encounter Category: Medical Plan: No recurrent issues. (7) Normally functioning cardiac pacemaker present: Onset Date: ~2006 Comment: (Medtronic SCPP - placed 2006, generator change 2013) Code(s): Z95.0 - Presence of cardiac pacemaker Category: Medical Plan: Status post generator change 09/2022. Normal function. (8) Preop cardiovascular exam: Code(s): Z01.810 - Encounter for preprocedural cardiovascular examination Category: Medical Plan: There is a question of possible thoracic surgery for lung tumor. Considering his numerous cardiac and general medical issues as well as age, frailty, he will be at high cardiac risk for any rad-operative cardiovascular issues. Coding Level of Care Code Est Pt Level 4 (02145) Diagnoses Atherosclerotic cardiovascular disease I25.10 Persistent atrial fibrillation I48.19 Chronic right heart failure I50.812 Pericardial effusion I31.3 Essential hypertension I10 SDH (subdural hematoma) S06.5X9A Normally functioning cardiac pacemaker present Z95.0 Preop cardiovascular exam Z01.810 CPT Codes Cardiac Device Check - Cardiac Device 1: [id number] Cardiac Device Check, leadless/single lead pacemaker ([id number])
== END 2023-12-25 13:39 | disposition home or self-care (01) ==
PROVIDERS: PCP Internal Medicine Geriatric Medicine; Visit Provider Internal Medicine
DX: I25.10 Atherosclerotic heart disease of native coronary artery without angina pectoris (principal); I48.19 Other persistent atrial fibrillation; I11.0 Hypertensive heart disease with heart failure; I50.812 Chronic right heart failure; I31.39 Other pericardial effusion (noninflammatory); S06.5X9A Traumatic subdural hemorrhage with loss of consciousness of unspecified duration, initial encounter; Z95.0 Presence of cardiac pacemaker; Z01.810 Encounter for preprocedural cardiovascular examination
CPT/HCPCS: 93279; 99214

== ENCOUNTER → 2023-12-25 12:48 | Outpatient (BNVA) | payer OTHER, SELFPAY | PROVIDERS: PCP Internal Medicine Geriatric Medicine; Visit Provider Internal Medicine | DX: I25.10 Atherosclerotic heart disease of native coronary artery without angina pectoris (principal); I48.19 Other persistent atrial fibrillation; I11.0 Hypertensive heart disease with heart failure; I50.812 Chronic right heart failure; I31.39 Other pericardial effusion (noninflammatory); S06.5X9D Traumatic subdural hemorrhage with loss of consciousness of unspecified duration, subsequent encounter; Z79.01 Long term (current) use of anticoagulants; Z79.899 Other long term (current) drug therapy; Z45.018 Encounter for adjustment and management of other part of cardiac pacemaker | CPT/HCPCS: 99212 ==

== ENCOUNTER → 2024-01-05 10:28 | Outpatient (REF) | payer OTHER, SELFPAY ==
--- NOTE | 2024-01-05 10:30 | CA_ITS ---
Transthoracic Echocardiogram Patient (Last, First, Middle): Dk Sepulveda, Gender: Male Date of : 1940 Age: 83 Procedure Date: 01/05/2024 Procedure Type: Transthoracic Echocardiogram Location: OP Height: 170.18 cm Weight: 73.48 kg BSA: 1.85 m2 Heart Rate: bpm BP: 140 / 60 mmHg Physician Relations Manager: TO Referring MD: Jon Stuart MD Welder Repair: Yung Mart MD Symptoms: I31.3 - Pericardial effusion (noninflammatory) Study Quality: Adequate ECG Rhythm: Ventriculary paced rhythm Conclusions: - 1. Normal LV ejection fraction 55-60% 2. Moderately reduced RV systolic function 3. Moderately dilated left atrium 4. Mild aortic and mitral regurgitation 5. Mildly elevated right ventricular systolic pressure significantly elevated right atrial pressures 6. Small pericardial effusion Findings Left Ventricle Normal left ventricular size, thickness, and systolic function. The visually estimated ejection fraction is between 55-60%. Diastolic function is indeterminate on the basis of available data. Right Ventricle Normal right ventricular cavity size. There is moderately decreased right ventricular systolic function. There is a pacemaker wire seen in the right ventricle. Atria The left atrium is moderately dilated. There is no evidence of interatrial shunt. The right atrium is mildly dilated. A pacemaker wire is identified in the right atrium. Aortic Valve Normal aortic valve structure and function. There is no aortic valve stenosis. There is mild aortic valve regurgitation. Mitral Valve Normal mitral valve structure and function. There is mild mitral valve regurgitation. There is no mitral valve stenosis. Pulmonic Valve The pulmonic valve is likely normal. There is trace pulmonic valve regurgitation. Tricuspid Valve Normal tricuspid valve structure. There is mild to moderate tricuspid valve regurgitation. Significantly elevated right atrial pressure. Mild pulmonary hypertension is present. Great Vessels The pulmonary artery was not well visualized. There is mild dilatation of the ascending aorta measuring 3.80 cm. Venous The inferior vena cava is moderately dilated and does not collapse with inspiration. Pericardium/Pleural There is a small circumferential pericardial effusion. Measurements 2D Linear Measurements IVSd: 0.91 0.6-0.9/0.6-1.0 cm LVIDd: 5.44 3.9-5.3/4.2-5.9 cm LVIDd Index: 2.94 2.4-3.2/2.2-3.1 cm/m2 LVIDs: 3.79 2.0-3.6 cm LVPWd: 0.90 0.7-1.1 cm LA Diam: 3.90 2.7-3.8/3.0-4.0 cm LAIDs Index: 2.11 1.5-2.3 cm/m2 LV Mass: 229.71 67-162/88-224 g LV Mass Index: 124.17 43-95/49-115 g/m2 LVOT Diam: 2.00 3.0+(-)1.3 cm 2D Systolic Function EF 4C: 53.10 >55% EF 2C: 57.60 >55% EF BiP: 56.30 >55% Mitral Valve MV Pk E: 1.31 MV PK A: 0.46 MV Decel Time: 231.00 E/A: 2.90 E'Lateral: 6.85 E'Medial: 7.51 E/E' Med: 17.40 E/E' Lat: 19.10 PHT: 68.00 MVA PHT: 3.24 Decel Villalba: 5.68 MR Vol - PW Dopp: 24.30 MR VTI: 1.62 MR ERO: 15.00 MR Alias Jarad: 0.31 MR RAD: 0.60 Aortic Valve AoV Pk Jarad: 1.66 AoV Mn Jarad: 1.06 AoV VTI: 0.34 AoV Pk Grad: 11.00 Aov Mn Grad: 5.00 YURI Cont.VTI: 2.20 LVOT LVOT Pk Jarad: 0.98 LVOT Mn Jarad: 0.73 LVOT VTI: 0.24 LVOT Pk Grad: 4.00 LVOT Mn Grad: 3.00 LVOT Diam: 2.00 LVOT Area: 3.14 Diastolic Function MV Pk E: 1.31 MV Pk A: 0.46 E/A: 2.90 E'Medial: 7.51 E/E' Med: 17.40 E' Laterial: 6.85 E/E' Lat: 19.10 Right Ventricle TAPSE (mm): 12.70 TVS' Jarad: 8.92 Tricuspid Valve TR Pk Jarad: 2.67 TR Pk Grad: 29.00 RA Press: 15.00 RVSP: 44.00 Great Vessels Aorta Sinus of Valsalva: 3.55 2.0-3.5 cm Ao Asc: 3.80 2.1-3.4 cm Updated in Other Vendor System with Status of Final Yung Mart MD electronically signed on 01/06/2024 12:54:37 PM with status of Final
== END ==
LOC: HO.CARD 10:28
PROVIDERS: PCP Internal Medicine Geriatric Medicine; Visit Provider Internal Medicine
DX: I48.19 Other persistent atrial fibrillation (principal); I31.31 Malignant pericardial effusion in diseases classified elsewhere
CPT/HCPCS: 93306

== ENCOUNTER → 2024-01-05 10:30 | Outpatient (BNV) | payer OTHER, SELFPAY | PROVIDERS: PCP Internal Medicine Geriatric Medicine; Visit Provider Internal Medicine Cardiovascular Disease | DX: I35.1 Nonrheumatic aortic (valve) insufficiency (principal); I34.0 Nonrheumatic mitral (valve) insufficiency; I36.1 Nonrheumatic tricuspid (valve) insufficiency; I31.39 Other pericardial effusion (noninflammatory) | CPT/HCPCS: 93306 ==

== ENCOUNTER 2024-01-06 16:49 | Emergency (ER) | payer OTHER, SELFPAY ==
--- NOTE | ~2024-01-06 | XR_ITS ---
EXAMINATION: XR LUMBOSACRAL SPINE CLINICAL INFORMATION: Low back pain COMPARISON: None available. TECHNIQUE: Three views of the lumbosacral spine. FINDINGS: Normal vertebral body height. No acute fractures. Mild diffuse degenerative disc disease in the upper lumbar spine. Moderate degenerative disc disease at L4/L5 and L5/S1. Posterior facet joint arthropathy seen in the lower lumbar spine. There is a grade 1 anterolisthesis of L4 on L5 XR/XR lumbar spine 2-3V IMPRESSION: Multilevel degenerative disc disease as described above.
[2024-01-06 16:59] VITALS: BP 95/59; PULSE 70; RESP 16; TEMP 37.2; O2SAT 98; BMI 25.1
--- NOTE | 2024-01-06 17:03 | ED_ITS ---
HPI - General Adult General Chief complaint: Back Pain/Injury Stated complaint: lower back pain/difficulty getting up and down Time Seen by Provider: 01/06/24 20:11 Source: patient and dispatch specialist (patient requested his family member at the bed side interpret for him, declined [facility] erp manager) Mode of arrival: wheelchair Limitations: language barrier (patient requested his family member at the bed side interpret for him, declined [facility] erp manager) History of Present Illness ED Provider: Cintia Oneill PA-C HPI narrative: Patient is an 83 year old assigned male at with a history of DM, CKD, atrial-fib, and CAD presenting to the emergency department today with low back pain. Patient states that over the last few days he has had low back pain with difficulty standing and sitting. Patient denies any dizziness, lightheadedness, abdominal pain, nausea, vomiting, fever, chills, blurry vision, double vision, loss of vision, chest pain, difficulty breathing, shortness of breath, night sweats, pain with urination, increased urinary frequency, increased urinary urgency, blood in his urine or stool, syncope or a near syncopal episode, recent trauma or falls, bowel incontinence, bladder incontinence, or any other complaints at this time. Onset (ago): day(s) Location: back Severity: mild Severity scale (1-10): 4 Quality: aching and dull Relieving factors: immobilization Exacerbating factors: movement Associated symptoms: denies other symptoms Treatments prior to arrival: none Related Data Home Medications ?Medication ?Instructions ?Recorded ?Confirmed carvedilol 3.125 mg tablet 3.125 mg PO BID 07/02/20 12/25/23 rosuvastatin 10 mg tablet 10 mg PO DAILY 07/02/20 12/25/23 blood sugar diagnostic #10 ea 12/18/20 12/25/23 ferrous sulfate 325 mg (65 mg 325 mg PO DAILY 12/18/20 12/25/23 iron) tablet,delayed release lancets 28 gauge #100 ea 12/18/20 12/25/23 blood-glucose meter (FreeStyle #1 ea 04/02/21 12/25/23 Matthews Lite kit) pen needle, diabetic 31 gauge x #1,200 ea 04/02/21 12/25/23/16 (BD Ultra-Fine Short Pen Needle) insulin aspart U-100 100 unit/mL 12 unit subcut DAILY@1730 05/30/22 12/25/23 (3 mL) subcutaneous pen (Novolog FlexPen U-100 Insulin aspart) omeprazole 20 mg capsule,delayed 20 mg PO DAILY indegestion 05/30/22 12/25/23 release albuterol sulfate 90 mcg/actuation 2 puff inhalation Q6H PRN wheezing 07/26/22 12/25/23 aerosol inhaler (Ventolin HFA) amlodipine 2.5 mg tablet 2.5 mg PO QAM 07/26/22 12/25/23 calcitriol 0.25 mcg capsule 0.25 mcg PO Q OTHER DAY 07/26/22 12/25/23 gabapentin 100 mg capsule 100 mg PO QPM 05/16/23 12/25/23 insulin aspart U-100 100 unit/mL 8 unit subcut DAILY@1130 05/16/23 12/25/23 (3 mL) subcutaneous pen (Novolog FlexPen U-100 Insulin aspart) insulin aspart U-100 100 unit/mL 10 unit subcut DAILY@0730 05/16/23 12/25/23 (3 mL) subcutaneous pen (Novolog FlexPen U-100 Insulin aspart) insulin degludec 100 unit/mL (3 28 unit subcut BEDTIME 05/16/23 12/25/23 mL) subcutaneous pen (Tresiba FlexTouch U-100 insulin) spironolactone 25 mg tablet 12.5 mg PO QAM 05/16/23 12/25/23 metolazone 2.5 mg tablet See Rx Instructions .Route .COMPLEX 06/26/23 12/25/23 furosemide 40 mg tablet 40 mg PO DAILY 09/04/23 12/25/23 Previous Rx's ?Medication ?Instructions ?Recorded acetaminophen 650 mg 650 mg PO Q12H PRN for pain #60 07/18/22 tablet,extended release tabs apixaban 2.5 mg tablet (Eliquis) 2.5 mg PO BID #180 tabs 02/15/23 torsemide 20 mg tablet 80 mg (4 x 20 mg) PO DAILY #120 05/17/23 tabs fluticasone propionate 50 2 spray intranasal DAILY 30 days 08/08/23 mcg/actuation nasal #15.8 mL spray,suspension Allergies Allergy/AdvReac Type Severity Reaction Status Date / Time NSAIDS due to CKD Allergy Unknown n/a Uncoded 01/06/24 17:01 Review of Systems Constitutional: Constitutional: Reports no additional constitutional complaints, Denies chills, Denies fever(s) and Denies night sweats Eyes: Eyes: Reports no additional eye complaints, Denies blurry vision, Denies change in vision, Denies diplopia, Denies eye discharge, Denies loss of vision and Denies eye pain ENT: Denies dizziness Cardiovascular: Cardiovascular: Reports no additional cardiovascular complaints, Denies chest pain, Denies lightheadedness, Denies Loss of Consciousness and Denies dyspnea Respiratory: Respiratory: Reports no additional respiratory complaints and Denies dyspnea Gastrointestinal: Gastrointestinal: Reports no additional gastrointestinal complaints, Denies abdominal pain, Denies melena, Denies hematochezia, Denies change in bowel habits and Denies change in stool character Genitourinary: Genitourinary: Reports no additional male genitourinary complaints, Denies hematuria, Denies oliguria, Denies difficulty urinating, Denies dysuria, Denies urinary frequency, Denies urinary hesitancy, Denies urinary incontinence and Denies urinary urgency Musculoskeletal: Musculoskeletal: Reports no additional musculoskeletal complaints, Reports back pain, Denies numbness and Denies tingling Neurologic: Denies dizziness, Denies loss of vision, Denies numbness and Denies tingling Psychiatric: Psychiatric: Reports no additional psychiatric complaints Endocrine: Endocrine: Reports no additional endocrine complaints Hematologic/Lymphatic: Hematologic/Lymphatic: Reports no additional hematologic/lymphatic complaints Allergic/Immunologic: Allergic/Immunologic: Reports no additional allergic/immunologic complaints [facility] Past Medical History Attestation statement: The following information was validated with the patient. (all information was validated by the patient's family member at the bed side) Source: old records reviewed, obtained from family (patient's family member at the bed side provided additional history and confirmed the history provided by the patient.) and nursing notes reviewed Medical History Tricuspid regurgitation Kidney disease Pleuritic chest pain Cough Hemoptysis History of CVA with residual deficit (~04/2005) History of COVID-19 (~06/2020) SDH (subdural hematoma) Essential hypertension Normally functioning cardiac pacemaker present (~2006) Atherosclerotic cardiovascular disease Hyperlipidemia GERD (gastroesophageal reflux disease) Pacemaker (~2006) Diabetes mellitus Persistent atrial fibrillation Surgical History History of heart artery stent History of craniotomy History of permanent cardiac pacemaker placement (~09/2006) Family History Family History Father No problems noted. Mother No problems noted. Social History Social History Household Members: None Housing: Apartment Do you presently have visiting nurse or other home services: Yes Alcohol intake: unknown Comment: able to verbalize back the need to use call perez if he needs to get OOB Patient Tobacco Use Status: Former Tobacco user Smoked in Last 30 Days: No Second Hand Smoke Exposure: No Use of substances other than those prescribed or required for medical reasons: No Advance Directives: No Advance Directives Information Provided: No service: No Current occupational status: retired Physical Exam ED Vital Signs: Vital Signs - 24 hr 01/06/24 16:59 Temperature 98.9 F Pulse Rate 70 Respiratory Rate 16 Blood Pressure 95/59 L Pulse Oximetry 98 Oxygen Delivery Method Room Air BMI result Body Mass Index 25.1 Const General: cooperative, no acute distress, alert and awake Nutritional Appearance: well nourished Orientation/consciousness: patient oriented x3 Limitations: no limitations HENMT Head: Yes normal to inspection and Yes atraumatic Ears: hearing grossly normal bilaterally and external ears normal General nose exam: Normal external nose present, no nasal discharge noted and no epistaxis Face and sinus: Yes normal facial exam, No abrasion and No laceration Mouth: Normal oral and palatal mucosa present, no drooling and no muffled voice Eyes General: appearance normal, both eyes and all related structures Periorbital: periorbital findings normal Eyelids: Yes eyelids normal Conjunctivae: conjunctivae normal Pupils: Equal, round and reactive pupils present EOM: EOMs intact bilaterally Neck Neck: Yes normal visual inspection, Yes full ROM and Yes no lymphadenopathy Chest Chest palpation & inspection: normal inspection of the chest Resp Effort & Inspection: normal respiratory effort and able to speak in complete sentences GI Inspection: Yes normal to inspection General: Yes no CVA tenderness Back/Spine/Pelvis Back: no CVA tenderness Cervical Spine: normal cervical lordosis and cervical ROM normal Thoracic/Lumbar Spine: thoracic and lumbar spine normal to inspection Pelvis: no pain with anterior-posterior compression Neuro General: patient oriented x3 and moves all extremities Cranial nerves: Yes Equal, round and reactive pupils present Cognition (Neuro): normal cognition Extrem General: Yes normal to inspection, Yes full ROM and Yes capillary refill normal Psych Appearance: grossly normal Mental Status: mental status grossly normal Affect: normal affect Attitude: cooperative Thought process: Normal thought process present Thought content: Normal thought content present Insight: Good insight present (Psych) Course Course Course Narrative: RME performed by Cintia Oneill PA-C. Patient is an 83 year old assigned male at presenting to the emergency department with low back pain. Patient states his back is hurting to the point where he can't get out of bed. Detailed physical exam and review of systems are deferred to the nurse clinician. EKG and imaging ordered. Patient placed back in the waiting room pending room availability and results. Medical Decision Making Medical Decision Making MDM Narrative: Patient is an 83 year old assigned male at with a history of DM, CKD, atrial-fib, and CAD presenting to the emergency department today with low back pain. Patient's physical exam was unremarkable. Patient's lumbar x-ray showed multilevel degenerative disc disease but was otherwise unremarkable. I explained my physical exam findings as well as all test results to the patient and the patient's family member at the bed side. I answered all questions asked by the patient and the patient's family member at the bed side. I stressed the importance of the patient taking his medication as directed (either prescribed or as the over the counter packaging recommends). I stressed the importance of the patient following up with his primary care provider and a electronic publishing specialist. I stressed the importance of the patient returning to the emergency department immediately if his symptoms were to worsen or if he were to develop any dizziness, shortness of breath, difficulty breathing, chest pain, blurry vision, loss of vision, nausea, vomiting, abdominal pain, fever, chills, back pain, or any other complaints. Patient and the patient's and the patient's family member verbalized agreement and understanding with this treatment plan and discharge. Differential Diagnosis Differential Diagnoses: The differential diagnosis associated with the presentation includes Low back pain Disc disease Admission/Observation Consideration of admission/observation: Escalation of care including admission/observation considered Patient would have been admitted to the hospital had his work up had any findings where hospital admission was appropriate and his clinical presentation warranted hospital admission. Independent Interpretation I performed an independent interpretation of an: Plain X-Ray Interpretation: My interpretation is in agreement with the radiologist's impression of this imaging study. EXAMINATION: XR LUMBOSACRAL SPINE CLINICAL INFORMATION: Low back pain COMPARISON: None available. TECHNIQUE: Three views of the lumbosacral spine. FINDINGS: Normal vertebral body height. No acute fractures. Mild diffuse degenerative disc disease in the upper lumbar spine. Moderate degenerative disc disease at L4/L5 and L5/S1. Posterior facet joint arthropathy seen in the lower lumbar spine. There is a grade 1 anterolisthesis of L4 on L5 XR/XR lumbar spine 2-3V IMPRESSION: Multilevel degenerative disc disease as described above. Dictated By: Hai Carrion MD Signed By: Electronically signed by Hai Carrion MD 01/06/24 5315 Radiology Impression Discussion of test interpretation with radiology: I have reviewed the radiologist's reading. Independent Historian Clinical information obtained from an independent historian. History obtained from or confirmed by: Other (patient's family member provided additional history and confirmed the history provided by the patient.) Tests considered The following testing was considered but not selected: I considered obtaining an EKG, CBC, CMP, and troponin however, the patient's current clinical presentation did not warrant this. I discussed this with the patient and his family member at the bed side who both verbalized agreement and understanding. Discharge Plan Discharge Clinical Impression: Lumbar disc disease Patient Disposition: Home, Self-Care Instructions: Degenerative Disc Disease (ED) Additional Instructions: Follow up with your primary care provider and a electronic publishing specialist. Return to the emergency department immediately if your symptoms worsen or if you develop any dizziness, shortness of breath, difficulty breathing, chest pain, blurry vision, loss of vision, nausea, vomiting, abdominal pain, fever, chills, back pain, or any other complaints. Prescriptions: No Action acetaminophen 650 mg tablet extended release 650 mg PO Q12H PRN (Reason: for pain) Qty: 60 0RF Eliquis 2.5 mg tablet 2.5 mg PO BID Qty: 180 3RF fluticasone propionate 50 mcg/actuation spray,suspension 2 spray intranasal DAILY 30 Days Qty: 15.8 11RF carvedilol 3.125 mg Tablet 3.125 mg PO BID rosuvastatin 10 mg Tablet 10 mg PO DAILY omeprazole 20 mg capsule,delayed release(DR/EC) 20 mg PO DAILY spironolactone 25 mg tablet 12.5 mg PO QAM gabapentin 100 mg capsule 100 mg PO QPM insulin degludec [Tresiba FlexTouch U-100] 100 unit/mL (3 mL) insulin pen 28 unit subcut BEDTIME insulin aspart U-100 [Novolog FlexPen U-100 Insulin] 100 unit/mL (3 mL) insulin pen 10 unit subcut DAILY@0730 insulin aspart U-100 [Novolog FlexPen U-100 Insulin] 100 unit/mL (3 mL) insulin pen 8 unit subcut DAILY@1130 torsemide 20 mg tablet 80 mg PO DAILY Qty: 120 0RF Rx Instructions: Dosage increased to 80 mg once daily (DME) blood sugar diagnostic Strip See Rx Instructions Not Applicable BID Qty: 10 Rx Instructions: As directed ferrous sulfate 325 mg (65 mg iron) tablet,delayed release (DR/EC) 325 mg PO DAILY (DME) lancets 28 gauge misc See Rx Instructions topical BID Qty: 100 Rx Instructions: As directed (DME) blood-glucose meter [FreeStyle Matthews Lite] Kit See Rx Instructions .ROUTE .MEDSUPPLY Qty: 1 Rx Instructions: As directed (DME) pen needle, diabetic [BD Ultra-Fine Short Pen Needle] 31 gauge x 5/16 needle See Rx Instructions subcut DAILY Qty: 1200 Rx Instructions: As directed insulin aspart U-100 [Novolog FlexPen U-100 Insulin] 100 unit/mL (3 mL) insulin pen 12 unit subcut DAILY@1730 amlodipine 2.5 mg tablet 2.5 mg PO QAM calcitriol 0.25 mcg capsule 0.25 mcg PO Q OTHER DAY albuterol sulfate [Ventolin HFA] 90 mcg/actuation HFA aerosol inhaler 2 puff inhalation Q6H PRN (Reason: wheezing) furosemide 40 mg tablet 40 mg PO DAILY metolazone 2.5 mg tablet See Rx Instructions .ROUTE .COMPLEX Rx Instructions: weekly Referrals: [facility] [Provider Group] (Call to establish and follow up with a electronic publishing specialist. ) Name,MD Juan M [Primary Care Provider] - Interventions: ED Discharge Assessment Last Done: 01/06/24 20:23 Discharge Date/Time: 01/06/24 20:24 Print Language: Djiboutian
--- NOTE | 2024-01-06 17:03 | ECG_ITS ---
Test Reason : BACK PAIN Blood Pressure : / mmHG Vent. Rate : 062 BPM Atrial Rate : 065 BPM P-R Int : 000 ms QRS Dur : 180 ms QT Int : 464 ms P-R-T Axes : 000 -75 068 degrees QTc Int : 470 ms Ventricular-paced rhythm Abnormal ECG When compared with ECG of 15-MAY-2023 21:15, Vent. rate has increased BY 2 BPM Referred By: Cintia Oneill Electronically Signed By:DANAY WEBER MD
[2024-01-06 18:00] VITALS: BP 128/61; PULSE 60; RESP 18; TEMP 37.3; O2SAT 97
[2024-01-06 20:23] VITALS: BP 128/61; PULSE 60; RESP 18; TEMP 37.3; O2SAT 97
== END 2024-01-06 20:24 | disposition home or self-care (01) ==
PROVIDERS: Emergency Provider Emergency Medicine; PCP Internal Medicine Geriatric Medicine
DX: M51.36 Other intervertebral disc degeneration, lumbar region (principal); M54.50 Low back pain, unspecified; E11.9 Type 2 diabetes mellitus without complications; I10 Essential (primary) hypertension; E78.5 Hyperlipidemia, unspecified; I48.19 Other persistent atrial fibrillation; Z95.0 Presence of cardiac pacemaker; Z79.4 Long term (current) use of insulin; Z79.899 Other long term (current) drug therapy; Z79.01 Long term (current) use of anticoagulants; Z79.02 Long term (current) use of antithrombotics/antiplatelets
CPT/HCPCS: 72100; 93005; 99283; 99284

== ENCOUNTER → 2024-01-06 17:03 | Outpatient (BNV) | payer OTHER, SELFPAY | PROVIDERS: Emergency Provider Emergency Medicine; PCP Internal Medicine Geriatric Medicine; Visit Provider Internal Medicine Cardiovascular Disease | DX: M54.50 Low back pain, unspecified (principal); R94.31 Abnormal electrocardiogram [ECG] [EKG] | CPT/HCPCS: 93010 ==

== ENCOUNTER → 2024-02-14 14:35 | Outpatient (RCR) | payer OTHER, SELFPAY ==
--- NOTE | 2020-07-24 15:05 | P.CNHO_ITS ---
Subjective - Subjective Chief complaint: Abnormal scan Patient: new to practice Consult date: 07/24/20 Requesting Physician: Dr. Carlisle HPI - Consult Narrative Reason for consult: Mediastinal mass Narrative: Dk Sepulveda is a 79 year old male who was diagnosed with mediastinal mass on recent imaging. Patient was recently treated due to acute respiratory failure due to covid 19 infection requiring home oxygen upon discharged. Patient came with acute kidney injury in June 2020 probably secondary to dehydration/also blood pressure medication. He has since been discharged home and is recovering at home. He last tested positive for COVID-19 on July 16. At this time he denies any fever, chills, cough or shortness of breath. He is accompanied by his daughter today who is the main historian. He lives at home with his niece. Review of Systems - Constitutional Reports no additional constitutional complaints - Cardiovascular Reports no additional cardiovascular complaints - Respiratory Reports no additional respiratory complaints Oncology Screenings - ECOG Performance Status ECOG Performance Status: 3 [facility] Medical History: Medical History (Last Reviewed 07/21/20 @ 23:27 by LISA Navarro) CVA (cerebral vascular accident) Diabetes mellitus GERD (gastroesophageal reflux disease) H/O: HTN (hypertension) Hyperlipidemia Pacemaker Persistent atrial fibrillation Social History: Social History (Last Reviewed 07/18/20 @ 20:35 by Suzy Kurtz MD) Living Situation History: Household Members: Family Housing: House Alcohol History: Alcohol intake: never Alcohol History Details: Alcohol intake frequency: does not drink Occupation Assessmet: service: No Current occupational status: retired Home Medications and Allergies Home Medications Medication Instructions Recorded Confirmed Type Eliquis 5 mg PO BID 07/02/20 07/16/20 History carvedilol 3.125 mg PO BID 07/02/20 07/16/20 History glipizide 5 mg PO DAILY 07/02/20 07/16/20 History losartan 50 mg PO DAILY 07/02/20 07/16/20 History melatonin 5 mg PO BEDTIME 07/02/20 07/16/20 History omeprazole 20 mg PO DAILY PRN 07/02/20 07/16/20 History rosuvastatin 10 mg PO DAILY 07/02/20 07/16/20 History torsemide 40 mg PO BID 07/02/20 07/16/20 History Allergies Allergy/AdvReac Type Severity Reaction Status Date / Time No Known Allergies Allergy Unknown Unverified 03/05/20 15:58 NSAIDS due to CKD Allergy Unknown Uncoded 06/27/19 00:00 Physical Exam - Constitutional Present: no acute distress - Routine HEENT Exam Head: Present: normal inspection Eye: Present: normal appearance - Routine Respiratory Exam Absent: respiratory distress - Routine Cardiovascular Exam Cardiovascular: Present: S1, S2 Hem/Onc Consult Result - Labs Labs: Laboratory Tests 04/26/19 07/24/20 07/24/20 18:26 12:10 12:10 WBC 8.6 RBC 2.95 L Hgb 9.0 L Hct 27.4 L MCV 92.9 MCH 30.5 MCHC 32.8 RDW 15.1 RDW Coeff of Marcelina 12.0 Plt Count 128 L Sodium 137 Potassium 4.0 D BUN 26 H Creatinine 1.49 H Assessment and Plan (1) Mediastinal mass Status: Acute 1. This is a 79-year-old male who is referred for evaluation of incidentally discovered mediastinal mass. CT chest without contrast on 07/16/2020 revealed a solid mediastinal mass measuring 3.6 x 2.7 cm. Differential diagnosis raised was substernal thyroid or lymphoma, thymoma and teratoma were felt to be less likely radiographically. LDH is normal serum protein electrophoresis/immunofixation is normal. Serum alpha fetoprotein and Beta HCG is pending. I discussed his case in Lung tumor Board, it was felt that CT-guided biopsy could not be performed because of location. He will be referred for CT surgeon for resection which would be diagnostic and possibly therapeutic. At this time patient he is rather frail and still recovering from COVID-19 infection. I will also arrange for MRI chest as recommended by radiologist. Follow-up in 2 months.
--- NOTE | 2020-07-27 09:44 | MHC.HEMONCSW ---
MRI CHEST WITH C ORDER PLACED IN [facility] FOR 2 WEEKS. THEY WILL SCHEDULE PATIENT.
--- NOTE | 2020-09-15 15:01 | MHC.HEMONCMA ---
Patient was referred to Dr Kinsey, he will be seen this monday09/18/2020 at 10am. Patient's daughter has been made aware.
--- NOTE | 2020-10-20 13:08 | MHC.HEMONCMA ---
Spoke with pt and asked if he had procedures done and he stated he had to cancel due to having to go to [place] in a emergency. His brother had heart surgery. I advised pt that when he returns to reshedule those procedures and then call to reschedule with Dr Toscano.
== END | disposition home or self-care (01) ==
LOC: HO.ONC 07-24 10:30
PROVIDERS: Visit Provider Internal Medicine
DX: J98.59 Other diseases of mediastinum, not elsewhere classified (principal); Z86.16 Personal history of COVID-19
CPT/HCPCS: 99204

== ENCOUNTER 2024-02-14 15:39 | Outpatient (REF) | payer OTHER, SELFPAY ==
--- NOTE | ~2024-02-14 | XR_ITS ---
EXAMINATION: X-ray right wrist X-ray right hand CLINICAL INFORMATION: Swelling, infectious arthritis versus gout COMPARISON: Correlation x-ray 11/24/2022 TECHNIQUE: Right wrist 3 views. Right hand 5 views. FINDINGS: Mild distal radiocarpal arthritis. Joint spaces of the wrist are maintained. Mild triscaphe degenerative arthritis. Mild first CMC arthritis. Stable small calcific densities radial to the first CMC joint.. Pronator quadratus fat stripe is maintained. Soft tissue swelling of the wrist. In the more distal hand, the bone alignment is anatomic. Fingers are flexed in position limiting evaluation of the joint space. CMC joint spaces are maintained. There is mild arthritis in some of the interphalangeal joints of the fingers, with joint space loss, marginal osteophytes. This includes mild arthritis in the first interphalangeal joint, and some of the DIP joints. Soft tissue swelling of the hand. No erosive changes are seen. No suspicious soft tissue calcification. No air is seen in the soft tissues. XR/XR wrist RT min 3V IMPRESSION: No radiographic evidence of acute fracture or dislocation. No erosive or destructive changes are identified. Soft tissue swelling of the hand and wrist. Degenerative-appearing arthritis present, detailed above. This includes mild distal radiocarpal joint arthritis, first CMC joint arthritis. Further evaluation with Cross-sectional imaging, follow-up imaging as clinically indicated. Electronically signed by: Vargas De Dios MD 02/14/2024 06:18 PM EDT
== END 2024-02-14 15:40 | disposition home or self-care (01) ==
LOC: HO.HHCX 15:39
PROVIDERS: Visit Provider Nurse Practitioner
DX: M25.431 Effusion, right wrist (principal)
CPT/HCPCS: 73110

== ENCOUNTER 2024-02-14 16:49 | Emergency (ER) | payer OTHER, SELFPAY ==
--- NOTE | ~2024-02-14 | XR_ITS ---
EXAMINATION: X-ray right wrist X-ray right hand CLINICAL INFORMATION: Swelling, infectious arthritis versus gout COMPARISON: Correlation x-ray 11/24/2022 TECHNIQUE: Right wrist 3 views. Right hand 5 views. FINDINGS: Mild distal radiocarpal arthritis. Joint spaces of the wrist are maintained. Mild triscaphe degenerative arthritis. Mild first CMC arthritis. Stable small calcific densities radial to the first CMC joint.. Pronator quadratus fat stripe is maintained. Soft tissue swelling of the wrist. In the more distal hand, the bone alignment is anatomic. Fingers are flexed in position limiting evaluation of the joint space. CMC joint spaces are maintained. There is mild arthritis in some of the interphalangeal joints of the fingers, with joint space loss, marginal osteophytes. This includes mild arthritis in the first interphalangeal joint, and some of the DIP joints. Soft tissue swelling of the hand. No erosive changes are seen. No suspicious soft tissue calcification. No air is seen in the soft tissues. XR/XR hand wrist RT IMPRESSION: No radiographic evidence of acute fracture or dislocation. No erosive or destructive changes are identified. Soft tissue swelling of the hand and wrist. Degenerative-appearing arthritis present, detailed above. This includes mild distal radiocarpal joint arthritis, first CMC joint arthritis. Further evaluation with Cross-sectional imaging, follow-up imaging as clinically indicated. Electronically signed by: Vargas De Dios MD 02/14/2024 06:18 PM EDT
[2024-02-14 16:55] VITALS: BP 151/57; PULSE 80; RESP 19; TEMP 36.3; O2SAT 98; BMI 24.3
--- NOTE | 2024-02-14 16:55 | ED.GENADULT ---
HPI - General Adult General Chief complaint: Extremity Injury, Upper Stated complaint: R wrist swelling Time Seen by Provider: 02/14/24 19:10 Source: patient, family, RN notes reviewed and old records reviewed Mode of arrival: ambulatory Limitations: no limitations History of Present Illness ED Provider: Piyush HPI narrative: 83-year-old male with past medical history significant for chronic kidney disease, right heart failure, coronary artery disease, tricuspid regurgitation, atrial fibrillation presents for evaluation of right wrist pain Patient denies any trauma to the right hand or wrist. He reports pain to the back of the right wrist for about 1 week He has some pain radiating into his right hand and indicates the area of his right 1st knuckle. Denies any fevers, chills. His pain does not radiate up his arm or into his elbow He reports on at least 2 other occasions in the past he has had gout and reports that this feels similar to those episodes The patient's daughter is bedside and states the patient likes to eat red meat and seafood The patient admits that he had this yesterday He does not drink alcohol Related Data Home Medications ?Medication ?Instructions ?Recorded ?Confirmed carvedilol 3.125 mg tablet 3.125 mg PO BID 07/02/20 12/25/23 rosuvastatin 10 mg tablet 10 mg PO DAILY 07/02/20 12/25/23 blood sugar diagnostic #10 ea 12/18/20 12/25/23 ferrous sulfate 325 mg (65 mg 325 mg PO DAILY 12/18/20 12/25/23 iron) tablet,delayed release lancets 28 gauge #100 ea 12/18/20 12/25/23 blood-glucose meter (FreeStyle #1 ea 04/02/21 12/25/23 Portage Lite kit) pen needle, diabetic 31 gauge x #1,200 ea 04/02/21 12/25/23 5/16 (BD Ultra-Fine Short Pen Needle) insulin aspart U-100 100 unit/mL 12 unit subcut DAILY@1730 05/30/22 12/25/23 (3 mL) subcutaneous pen (Novolog FlexPen U-100 Insulin aspart) omeprazole 20 mg capsule,delayed 20 mg PO DAILY indegestion 05/30/22 12/25/23 release albuterol sulfate 90 mcg/actuation 2 puff inhalation Q6H PRN wheezing 07/26/22 12/25/23 aerosol inhaler (Ventolin HFA) amlodipine 2.5 mg tablet 2.5 mg PO QAM 07/26/22 12/25/23 calcitriol 0.25 mcg capsule 0.25 mcg PO Q OTHER DAY 07/26/22 12/25/23 gabapentin 100 mg capsule 100 mg PO QPM 05/16/23 12/25/23 insulin aspart U-100 100 unit/mL 8 unit subcut DAILY@1130 05/16/23 12/25/23 (3 mL) subcutaneous pen (Novolog FlexPen U-100 Insulin aspart) insulin aspart U-100 100 unit/mL 10 unit subcut DAILY@0730 05/16/23 12/25/23 (3 mL) subcutaneous pen (Novolog FlexPen U-100 Insulin aspart) insulin degludec 100 unit/mL (3 28 unit subcut BEDTIME 05/16/23 12/25/23 mL) subcutaneous pen (Tresiba FlexTouch U-100 insulin) spironolactone 25 mg tablet 12.5 mg PO QAM 05/16/23 12/25/23 metolazone 2.5 mg tablet See Rx Instructions .Route .COMPLEX 06/26/23 12/25/23 furosemide 40 mg tablet 40 mg PO DAILY 09/04/23 12/25/23 Previous Rx's ?Medication ?Instructions ?Recorded acetaminophen 650 mg 650 mg PO Q12H PRN for pain #60 07/18/22 tablet,extended release tabs torsemide 20 mg tablet 80 mg (4 x 20 mg) PO DAILY #120 05/17/23 tabs fluticasone propionate 50 2 spray intranasal DAILY 30 days 08/08/23 mcg/actuation nasal #15.8 mL spray,suspension apixaban 2.5 mg tablet (Eliquis) 2.5 mg PO BID #180 tabs 01/25/24 colchicine 0.6 mg tablet 0.6 mg PO DAILY #7 tabs 02/14/24 prednisone 20 mg tablet 40 mg (2 x 20 mg) PO DAILY #10 tabs 02/14/24 prednisone 20 mg tablet 40 mg (2 x 20 mg) PO DAILY #10 tabs 02/14/24 tramadol 50 mg tablet 50 mg PO Q8H PRN severe pain 02/14/24 (scale score 7-10) #10 tabs Allergies Allergy/AdvReac Type Severity Reaction Status Date / Time NSAIDS due to CKD Allergy Unknown n/a Uncoded 02/14/24 16:56 Review of Systems Constitutional: Constitutional: Denies body ache(s), Denies chills and Denies fever(s) Eyes: Eyes: Denies blurry vision ENT: Denies vertigo and Denies sore throat Cardiovascular: Cardiovascular: Denies chest pain Musculoskeletal: Musculoskeletal: Reports arthralgias, Reports joint swelling and Reports limited range of motion Integumentary/Breasts: Skin/Breast: Reports erythema, Denies rash and Denies wounds Neurologic: Denies vertigo PMFSH Past Medical History Medical History Tricuspid regurgitation Kidney disease Pleuritic chest pain Cough Hemoptysis History of CVA with residual deficit (~04/2005) History of COVID-19 (~06/2020) SDH (subdural hematoma) Essential hypertension Normally functioning cardiac pacemaker present (~2006) Atherosclerotic cardiovascular disease Hyperlipidemia GERD (gastroesophageal reflux disease) Pacemaker (~2006) Diabetes mellitus Persistent atrial fibrillation Surgical History History of heart artery stent History of craniotomy History of permanent cardiac pacemaker placement (~09/2006) Family History Family History Father No problems noted. Mother No problems noted. Social History Social History Household Members: None Housing: Apartment Do you presently have visiting nurse or other home services: Yes Alcohol intake: unknown Comment: able to verbalize back the need to use call perez if he needs to get OOB Patient Tobacco Use Status: Former Tobacco user Second Hand Smoke Exposure: No Advance Directives: No Advance Directives Information Provided: No Do you have a plan to hurt others: No Plan service: No Current occupational status: retired Physical Exam ED Vital Signs: Vital Signs - 24 hr 02/14/24 16:55 02/14/24 19:34 02/14/24 19:39 Temperature 97.4 F 98.1 F 98.1 F Pulse Rate 80 78 78 Respiratory Rate 19 18 18 Blood Pressure 151/57 H 148/60 H 148/60 H Pulse Oximetry 98 98 98 Oxygen Delivery Method Room Air Room Air BMI result Body Mass Index 24.3 Const General: healthy appearing, comfortable, no acute distress, alert and awake Nutritional Appearance: well nourished Orientation/consciousness: patient oriented x3 HENMT Head: Yes normocephalic and Yes atraumatic Eyes Eyelids: Yes eyelids normal Conjunctivae: conjunctivae normal Sclerae: sclerae normal Corneas: corneas normal EOM: EOMs intact bilaterally Neck Neck: Yes full ROM Resp Effort & Inspection: normal respiratory effort, able to speak in complete sentences and not labored Skin General skin exam: elasticity normal Neuro General: patient oriented x3 Cranial nerves: Yes Bilaterally intact EOM present Cognition (Neuro): normal cognition Extrem Other: Patient has mild edema to the dorsal surface of the right wrist extending to the hand at the level of the MCP joints. There is faint erythema overlying the distal ulna and the right 2nd MCP joint. Course Course Course Narrative: This is an RME done by LISA Hollins: Additional HPI, ROS, PE not included below will be deferred to primary provider. 83 year old male presents w/ right wrist pain x few days sent in by [facility] to rule out gout/ infection in r wrist. Reports very painful when he moves r wrist. Appearance: Alert.? Oriented X3.? No acute cardiopulmonary distress distress.? Head: Normocephalic, atraumatic, no step-offs or deformities CVS: Pulses normal.? Respiratory: No respiratory distress.? Abdomen: Soft and nontender.? Skin: ? Normal skin color. Extremities: 5/5 strength to bilateral upper and lower extremities + painful rom to R wrist Neuro: Oriented X 3.? No motor deficit.? No sensory deficit. Medical Decision Making Medical Decision Making [facility] Narrative: 83-year-old male with past medical history as documented above presents for evaluation of 1 week of atraumatic right wrist and hand pain. He has a history of gout, has chronic kidney disease and a high purine diet per his admission. His x-ray shows mild arthritis, clinical exam is consistent with gout, he will be treated with prednisone, tramadol and colchicine. Differential Diagnosis Differential Diagnoses: The differential diagnosis associated with the presentation includes Acute gouty arthritis Rheumatoid arthritis Right wrist fracture Contusion Lab Data [facility] Lab Attestation statement: I reviewed the patient's lab results. The patient has no leukocytosis, he has a stable normocytic anemia. Chemistries significant for an elevated uric acid to 9.4, random glucose of 207 with no evidence of DKA. The patient has a stable chronic kidney disease. Electrolytes within normal limits. Inflammatory markers are mildly elevated 02/14/24 17:08 02/14/24 17:08 Labs: Lab Results 02/14/24 Range/Units 17:08 WBC 8.9 (4.8-10.8) X10*3/uL RBC 3.38 L (4.60-5.80) X10*6/uL Hgb 10.0 L (14.0-18.0) g/dl Hct 30.2 L (42.0-52.0) % MCV 89.3 (80.0-98.0) fL MCH 29.6 (27.0-33.0) pg MCHC 33.1 (31.0-36.0) g/dl RDW 15.1 (11.0-16.0) % Plt Count 173 D (160-400) X10*3/uL MPV 9.3 L (9.4-12.4) fL Immature Gran % (Auto) 0.4 (0.0-0.4) % Neut % (Auto) 70.8 (45-73) % Lymph % (Auto) 18.6 L (20-40) % [place] % (Auto) 9.7 (2-11) % Eos % (Auto) 0.4 (0-4) % Baso % (Auto) 0.1 (0-2) % Lymph # (Auto) 1.7 (1.2-4.9) X10*3/uL [place] # (Auto) 0.9 (0.1-1.2) X10*3/uL Eos # (Auto) 0.0 (0.0-0.4) X10*3/uL Baso # (Auto) 0.0 (0.0-0.2) X10*3/uL Abs Immat Gran (auto) 0.04 H (0.00-0.03) X10*3/uL Absolute Neuts (auto) 6.3 (2.0-8.3) x10*3/uL Absolute Nucleated RBC 0.000 (0.0-0.012) X10*3/uL Nucleated RBC % (auto) 0.0 (0.0-0.2) /100WBC ESR 89 H (0-15) MM/HR Sodium 137 (135-145) mmol/L Potassium 3.6 (3.3-5.1) mmol/L Chloride 100 (96-108) mmol/L Carbon Dioxide 26 (22-29) mmol/L Anion Gap 15 (12-20) BUN 37 H (9-16) mg/dL Creatinine 2.10 H (0.5-1.4) mg/dL Estim Creat Clear Calc 25.3 Estimated GFR 30 Random Glucose 207 H (60-115) mg/dL Lactic Acid 1.4 (0.5-2.0) mmol/L Uric Acid 9.4 H (3.4-7.0) mg/dL Calcium 9.6 D (8.4-10.2) mg/dL Magnesium 2.2 (1.6-2.6) mg/dL Total Bilirubin 0.9 (0.0-1.0) mg/dL AST 18 (5-37) U/L ALT 10 (0-40) U/L Alkaline Phosphatase 81 (39-117) U/L C-Reactive Protein 7.51 H (< or = 0.50) mg/dL Total Protein 7.6 (6.5-8.0) g/dL Albumin 3.9 (3.5-5.0) g/dL Independent Interpretation I performed an independent interpretation of an: Plain X-Ray (Agree with Radiology interpretation) Radiology Impression Discussion of test interpretation with radiology: I have reviewed the radiologist's reading. Radiologist Impression: XR/XR hand wrist RT IMPRESSION: No radiographic evidence of acute fracture or dislocation. No erosive or destructive changes are identified. Soft tissue swelling of the hand and wrist. Degenerative-appearing arthritis present, detailed above. This includes mild distal radiocarpal joint arthritis, first CMC joint arthritis. Further evaluation with Cross-sectional imaging, follow-up imaging as clinically indicated. Discharge Plan Discharge Clinical Impression: Acute gout of right wrist Patient Disposition: Home, Self-Care Instructions: Low Purine Diet (ED), Gout (ED) Additional Instructions: Your symptoms appear to be related to gout, but you also have arthritis on x-ray. Take the prednisone and colchicine as directed Check your blood sugar frequently while taking prednisone, as it may increase her blood sugar You may use Tylenol for pain, use tramadol for more severe, breakthrough pain. This may make you drowsy Do not drink alcohol or drive while taking this medication Follow-up with your primary doctor Prescriptions: New colchicine 0.6 mg tablet 0.6 mg PO DAILY Qty: 7 0RF tramadol 50 mg tablet 50 mg PO Q8H PRN (Reason: severe pain (scale score 7-10)) Qty: 10 0RF prednisone 20 mg tablet 40 mg PO DAILY Qty: 10 0RF prednisone 20 mg tablet 40 mg PO DAILY Qty: 10 0RF No Action acetaminophen 650 mg tablet extended release 650 mg PO Q12H PRN (Reason: for pain) Qty: 60 0RF fluticasone propionate 50 mcg/actuation spray,suspension 2 spray intranasal DAILY 30 Days Qty: 15.8 11RF Eliquis 2.5 mg tablet 2.5 mg PO BID Qty: 180 3RF carvedilol 3.125 mg Tablet 3.125 mg PO BID rosuvastatin 10 mg Tablet 10 mg PO DAILY omeprazole 20 mg capsule,delayed release(DR/EC) 20 mg PO DAILY spironolactone 25 mg tablet 12.5 mg PO QAM gabapentin 100 mg capsule 100 mg PO QPM insulin degludec [Tresiba FlexTouch U-100] 100 unit/mL (3 mL) insulin pen 28 unit subcut BEDTIME insulin aspart U-100 [Novolog FlexPen U-100 Insulin] 100 unit/mL (3 mL) insulin pen 10 unit subcut DAILY@0730 insulin aspart U-100 [Novolog FlexPen U-100 Insulin] 100 unit/mL (3 mL) insulin pen 8 unit subcut DAILY@1130 torsemide 20 mg tablet 80 mg PO DAILY Qty: 120 0RF Rx Instructions: Dosage increased to 80 mg once daily (DME) blood sugar diagnostic Strip See Rx Instructions Not Applicable BID Qty: 10 Rx Instructions: As directed ferrous sulfate 325 mg (65 mg iron) tablet,delayed release (DR/EC) 325 mg PO DAILY (DME) lancets 28 gauge misc See Rx Instructions topical BID Qty: 100 Rx Instructions: As directed (DME) blood-glucose meter [FreeStyle [place] Lite] Kit See Rx Instructions .ROUTE .MEDSUPPLY Qty: 1 Rx Instructions: As directed (DME) pen needle, diabetic [BD Ultra-Fine Short Pen Needle] 31 gauge x 5/16 needle See Rx Instructions subcut DAILY Qty: 1200 Rx Instructions: As directed insulin aspart U-100 [Novolog FlexPen U-100 Insulin] 100 unit/mL (3 mL) insulin pen 12 unit subcut DAILY@1730 amlodipine 2.5 mg tablet 2.5 mg PO QAM calcitriol 0.25 mcg capsule 0.25 mcg PO Q OTHER DAY albuterol sulfate [Ventolin HFA] 90 mcg/actuation HFA aerosol inhaler 2 puff inhalation Q6H PRN (Reason: wheezing) furosemide 40 mg tablet 40 mg PO DAILY metolazone 2.5 mg tablet See Rx Instructions .ROUTE .COMPLEX Rx Instructions: weekly Interventions: ED Discharge Assessment Last Done: 02/14/24 19:39 Print Language: Faroese
[2024-02-14 17:18] LABS: MANUAL DIFF FLAG NO
[2024-02-14 17:28] LABS: Lactic Acid 1.4 mmol/L (0.5-2.0)
[2024-02-14 17:33] LABS: Alanine Aminotransferase 10 U/L (0-40); Albumin Level 3.9 g/dL (3.5-5.0); Alkaline Phosphatase 81 U/L (39-117); Anion Gap 15 (12-20); Aspartate Amino Transferase 18 U/L (5-37); Bilirubin Total 0.9 mg/dL (0.0-1.0); Blood Urea Nitrogen 37 mg/dL (9-16); C Reactive Protein 7.51 mg/dL (< or = 0.50); Calcium 9.6 mg/dL (8.4-10.2); Carbon Dioxide 26 mmol/L (22-29); Chloride 100 mmol/L (96-108); Creatinine Clr Calc Pharmacy 25.3; Estimated Glomerular Filt Rate 30; Glucose Random 207 mg/dL (60-115); Magnesium 2.2 mg/dL (1.6-2.6); Potassium 3.6 mmol/L (3.3-5.1); Sodium 137 mmol/L (135-145); Total Protein 7.6 g/dL (6.5-8.0); Uric Acid 9.4 mg/dL (3.4-7.0)
[2024-02-14 17:36] LABS: Basophils Percent Auto 0.1 % (0-2); Eosinophils Percent Auto 0.4 % (0-4); Hematocrit 30.2 % (42.0-52.0); Imm Gran Abs Auto 0.04 X10*3/uL (0.00-0.03); Imm Gran Pct Auto 0.4 % (0.0-0.4); Lymphocytes Absolute Auto 1.7 X10*3/uL (1.2-4.9); Lymphocytes Percent Auto 18.6 % (20-40); Mean Corpuscular HGB Conc 33.1 g/dl (31.0-36.0); Mean Corpuscular Hemoglobin 29.6 pg (27.0-33.0); Mean Corpuscular Volume 89.3 fL (80.0-98.0); Mean Platelet Volume 9.3 fL (9.4-12.4); Monocytes Absolute Auto 0.9 X10*3/uL (0.1-1.2); Monocytes Percent Auto 9.7 % (2-11); Neutrophils Absolute Auto 6.3 x10*3/uL (2.0-8.3); Neutrophils Percent Auto 70.8 % (45-73); Platelet Count 173 X10*3/uL (160-400); Red Blood Count 3.38 X10*6/uL (4.60-5.80); Red Cell Distribution Width 15.1 % (11.0-16.0); White Blood Count 8.9 X10*3/uL (4.8-10.8)
[2024-02-14 18:17] LABS: Erythrocyte Sedimentation Rate 89 MM/HR (0-15)
[2024-02-14 19:34] VITALS: BP 148/60; PULSE 78; RESP 18; TEMP 36.7; O2SAT 98
[2024-02-14 19:39] VITALS: BP 148/60; PULSE 78; RESP 18; TEMP 36.7; O2SAT 98
== END 2024-02-14 20:08 | disposition home or self-care (01) ==
PROVIDERS: Physician Assistant; Emergency Provider Emergency Medicine; PCP Internal Medicine Geriatric Medicine
DX: M10.9 Gout, unspecified (principal); M25.531 Pain in right wrist; R60.1 Generalized edema; E11.9 Type 2 diabetes mellitus without complications; I10 Essential (primary) hypertension; E78.5 Hyperlipidemia, unspecified; I48.19 Other persistent atrial fibrillation; Z86.73 Personal history of transient ischemic attack (TIA), and cerebral infarction without residual deficits; Z79.02 Long term (current) use of antithrombotics/antiplatelets; Z79.4 Long term (current) use of insulin
CPT/HCPCS: 36415; 73110; 73130; 80053; 83605; 83735; 84550; 85025; 85652; 86140; 99282; 99283

== ENCOUNTER → 2024-02-14 23:59 | Outpatient (BNV) | payer OTHER, SELFPAY ==
--- NOTE | 2024-02-15 11:50 | A.OFFVIS_ITS ---
Intake Visit Reasons: Remote device check- Medtronic Allergies NSAIDS due to CKD Allergy (Unknown, Uncoded 02/14/24 16:56) n/a [facility] Medical History Tricuspid regurgitation Kidney disease Pleuritic chest pain Cough Hemoptysis History of CVA with residual deficit (~04/2005) History of COVID-19 (~06/2020) SDH (subdural hematoma) Essential hypertension Normally functioning cardiac pacemaker present (~2006) Atherosclerotic cardiovascular disease Hyperlipidemia GERD (gastroesophageal reflux disease) Pacemaker (~2006) Diabetes mellitus Persistent atrial fibrillation Surgical History History of heart artery stent History of craniotomy History of permanent cardiac pacemaker placement (~09/2006) Family History Father No problems noted. Mother No problems noted. Social History Household Members: None Housing: Apartment Do you presently have visiting nurse or other home services: Yes Alcohol intake: unknown Comment: able to verbalize back the need to use call perez if he needs to get OOB Patient Tobacco Use Status: Former Tobacco user Second Hand Smoke Exposure: No Advance Directives: No Advance Directives Information Provided: No Do you have a plan to hurt others: No Plan service: No Current occupational status: retired Office Procedures Cardiac Device Check Cardiac Device Check Details: Date of service- 02/14/2024 ; Battery life 12 years; normal lead parameters; BIT BENDER >99 %; no significant arrhythmias. Overall normal device function. [id number] Cardiac Device Interrogation, pacemaker Procedure code (CPT) selection complete Assessment & Plan Assessment & Plan (1) Persistent atrial fibrillation: Code(s): I48.19 - Other persistent atrial fibrillation Category: Medical Plan x Coding Level of Care Code Procedure Only Diagnoses Persistent atrial fibrillation I48.19 CPT Codes Cardiac Device Check - Cardiac Device 12: [id number] Cardiac Device Interrogation, pacemaker ([id number])
== END ==
PROVIDERS: PCP Internal Medicine Geriatric Medicine; Visit Provider Internal Medicine
DX: I48.19 Other persistent atrial fibrillation (principal); Z95.0 Presence of cardiac pacemaker
CPT/HCPCS: 93294

== ENCOUNTER 2024-02-21 12:37 | Outpatient (REF) | payer OTHER, SELFPAY ==
--- NOTE | ~2024-02-21 | CT_ITS ---
EXAMINATION: CT CHEST WITHOUT CONTRAST CLINICAL INFORMATION: Anterior mediastinal mass; neoplasm of unspecified behavior of other specified sites. Follow-up. COMPARISON: CT chest 10/12/2023, 05/08/2023, 05/15/2023, and dating back to 07/16/2020. TECHNIQUE: Multidetector volumetric CT imaging of the chest was done. Axial MIP volume rendering provided. Sagittal and coronal reformatted images were obtained. This CT examination was performed using dose optimization techniques as appropriate, variously including the following: *Automated exposure control *Adjustment of mA and/or kV according to patient size (this includes techniques or standardized protocols for targeted exams where dose is matched to indication/reason for exam; i.e. extremities or head) *Use of iterative reconstruction technique DLP: 139 mGy-cm Study submitted for interpretation 05/10/2024. FINDINGS: PULMONARY NODULES: -There are no suspicious pulmonary nodules. No new or enlarging nodules. LUNGS: -Lungs are clear without abnormal opacities. There is minor gravity dependent atelectasis. -Central and peripheral are patent and normal in appearance. -No pleural effusion, pneumothorax, or pleural mass. MEDIASTINUM: -Redemonstration of anterior mediastinal mass, lobulated with somewhat irregular lobulated contours, dumbbell shaped, measuring currently 3.6 x 5.1 x 5.3 cm (previously 3.6 x 4.9 x 4.9 cm), slightly enlarged. Internal Hounsfield units measure approximately 42, reflecting soft tissue. This has progressively but slowly enlarged over time, with measurements of 2.9 x 3.8 x 5.2 cm when measured similarly in 06/29/2020. -No abnormal lymphadenopathy identified. -Thyroid demonstrates a left-sided inferior/substernal nodule or possibly 2 abutting nodules, measuring approximately 2.0 x 1.1 cm in axial plane. This is stable. -There are prominent vascular structures surrounding the mass in the anterior mediastinum. -Aorta is nonaneurysmal. Main pulmonary artery is normal in size. -Single-lead pacer wire extends into the right ventricle. -There is cardiomegaly redemonstrated, moderate in severity. There is a medium sized pericardial effusion without mass effect. This is also similar. -Suspect a small type I hiatus hernia. Esophagus is mildly patulous. CORONARY ARTERY CALCIFICATION: There are heavy four-vessel coronary calcifications. AXILLA/CHEST WALL: Mild right greater than left male gynecomastia. -No masses or abnormal lymphadenopathy. There are several nonpathologically enlarged left greater than right axillary nodes present. These have normal fatty diana. This actually appears mildly improved from the prior. -Left chest wall pacer in place. -No additional abnormalities. UPPER ABDOMEN: -There is a 1.8 x 2.5 cm oval mass in segment 2 of the liver, unchanged from recent prior, where it was isoattenuating on portal venous phase. This was very small in 2020, measuring approximately 0.8 cm in diameter. It is slowly increased in size over time. Nodular hepatic contour. Findings suggest underlying cirrhosis. -There are gallstones within an otherwise normal-appearing gallbladder. -There is mild splenomegaly again noted with the spleen measuring 12.1 cm in length, previously 13.1 cm on 10/11/2023. -Prominent soft tissue again noted in the tail of the pancreas, most likely accessory splenic tissue. This can be confirmed with MRI. OSSEOUS STRUCTURES: There are degenerative changes throughout the spine in appearance which could be consistent with DISH. No suspicious focal lytic or blastic bone lesion. Left greater than right degenerative changes in the sternoclavicular joints. Mild bilateral degenerative arthropathy in the shoulder joints. CT/CT chest wo IV con IMPRESSION: 1. Anterior mediastinal mass redemonstrated, currently measuring 3.6 x 5.1 x 5.3 cm, previously 3.6 x 4.9 x 4.9 cm, and in 2020 measured 2.9 x 3.8 x 5.2 cm. There appears to have slowly increased in size over time, reflecting nonaggressive behavior. Differential remains unchanged. 2. Improved lymphadenopathy in the left greater than right axillary regions, none currently pathologically enlarged. 3. Moderate cardiomegaly. Moderate pericardial effusion. RV pacer wire. 4. No active pulmonary disease or nodules. 5. Incidental note made of an enlarging 1.8 x 2.5 cm oval mass in segment 2 of the liver, unchanged from recent prior, however 0.8 cm in 2020. Given suspected underlying cirrhosis, this is indeterminate although should be evaluated with ABDOMINAL ENHANCED MRI. At that time, the prominent soft tissue in the pancreatic tail can be assessed as well. 6. Mild splenomegaly, slightly improved. 7. Ancillary findings as discussed. Fleischner guidelines were followed. Electronically signed by: Basilio Mcnamara MD 05/10/2024 09:44 AM STEF
== END 2024-02-21 12:38 | disposition home or self-care (01) ==
LOC: HO.CT 12:37
PROVIDERS: PCP Internal Medicine Geriatric Medicine; Visit Provider Hospitalist
DX: D49.89 Neoplasm of unspecified behavior of other specified sites (principal)
CPT/HCPCS: 71250

== ENCOUNTER → 2024-02-21 12:39 | Outpatient (BNV) | payer OTHER, SELFPAY | PROVIDERS: PCP Internal Medicine Geriatric Medicine; Visit Provider Radiology Diagnostic Radiology | DX: D49.89 Neoplasm of unspecified behavior of other specified sites (principal); J98.59 Other diseases of mediastinum, not elsewhere classified | CPT/HCPCS: 71250 ==

== ENCOUNTER 2024-05-07 12:37 | Outpatient (AMB) | payer OTHER, SELFPAY ==
--- NOTE | 2024-05-07 13:17 | A.OFFVIS_ITS ---
Vital Signs 3 05/07/24 13:27 Height 5 ft 7 in Weight 162 lb BMI 25.4 BP 130/60 Blood Pressure Location Lt brachial Position Sitting Pulse 94 Intake Visit Reasons: Rad imbilical hernia Intake Note: Patient is seen in office for evaluation of a rad umbilical hernia. Pt c/o: has a lump on the left side of the abdomen for about a month, has increase during that time, does not lift heavy objects, admits to constipation and straining, painful bm due to straining, denies nausea or vomit, thinks he might have a hernia on the left side PCP:04/24/24 Endocrinology Specialist Required: No Accompanied by: Self / Same As Patient Allergies NSAIDS due to CKD Allergy (Unknown, Uncoded 05/07/24 13:24) n/a HPI Comments Details: 83-year-old male patient presenting for evaluation of a periumbilical hernia. He reports the lump beginning approximately 1 month ago located to the left of midline but denies any inciting events. He reports some mild discomfort associated with this. He noted that prior to this his abdomen was flat. He also notes some swelling on the right side but not to the same degree. He does report needing to strain to have a bowel movement. Denies any nausea or vomiting. He does report having atrial fibrillation and is currently on anticoagulation. He is also diabetic and requires insulin injection. He is unable to reach his arm so he injects in his abdominal wall. [facility] Medical History Tricuspid regurgitation Kidney disease Pleuritic chest pain Cough Hemoptysis History of CVA with residual deficit (~04/2005) History of COVID-19 (~06/2020) SDH (subdural hematoma) Essential hypertension Normally functioning cardiac pacemaker present (~2006) Atherosclerotic cardiovascular disease Hyperlipidemia GERD (gastroesophageal reflux disease) Pacemaker (~2006) Diabetes mellitus Persistent atrial fibrillation Surgical History History of heart artery stent History of craniotomy History of permanent cardiac pacemaker placement (~09/2006) Family History Father No problems noted. Mother No problems noted. Social History Household Members: None Housing: Apartment Do you presently have visiting nurse or other home services: Yes Alcohol intake: unknown Comment: able to verbalize back the need to use call perez if he needs to get OOB Patient Tobacco Use Status: Former Tobacco user Second Hand Smoke Exposure: No service: No Current occupational status: retired Review of Systems Card Reports irregular heart rhythm GI Details: Abdominal swelling Reports constipation Physical Exam Const General: no acute distress Nutritional Appearance: well nourished Orientation/consciousness: patient oriented x3 Eyes Sclerae: sclerae normal Resp Effort & Inspection: normal respiratory effort GI Other: Soft, distended on both the left and right side along the rectus muscle. No skin changes appreciated. Nontender to palpation. No rebound, guarding or rigidity. Abdomen image: 2 1. Area of swelling left side 2. Area of swelling right side Neuro General: patient oriented x3 Extrem Other: No edema Assessment & Plan Assessment & Plan (1) Rectus sheath hematoma: Code(s): S30.1XXA - Contusion of abdominal wall, initial encounter Category: Medical Qualifiers: Encounter type: initial encounter Qualified Code(s): S30.1XXA - Contusion of abdominal wall, initial encounter Plan 83-year-old male patient with a history of diabetes, atrial fibrillation, on anticoagulation found to have swelling in the abdominal wall over the rectus muscle. Findings are more consistent with a rectus sheath hematoma verses abdominal wall hernia. I recommended further evaluation with CT abdomen and pelvis without contrast. He will return following the study to review the results. Orders: Orders 2 CT abdomen pelvis wo IV con Today S30.1XXA - Contusion of abdominal wall, initial encounter Coding Level of Care Code New Pt Level 4 (61294) Diagnoses Hematoma of rectus sheath, initial encounter S30.1XXA Encounter type: initial encounter
[2024-05-07 13:27] VITALS: BP 130/60; PULSE 94; BMI 25.4
== END 2024-05-07 13:50 | disposition home or self-care (01) ==
PROVIDERS: PCP Internal Medicine Geriatric Medicine; Visit Provider Surgery
DX: S30.1XXA Contusion of abdominal wall, initial encounter (principal)
CPT/HCPCS: 99204

== ENCOUNTER → 2024-05-07 12:37 | Outpatient (BNVA) | payer OTHER, SELFPAY | PROVIDERS: PCP Internal Medicine Geriatric Medicine; Visit Provider Surgery | DX: S30.1XXA Contusion of abdominal wall, initial encounter (principal) | CPT/HCPCS: 99202 ==

== ENCOUNTER → 2024-05-14 23:59 | Outpatient (BNV) | payer OTHER, SELFPAY ==
--- NOTE | 2024-05-28 13:10 | MHC.OFFVIS ---
Intake Visit Reasons: Remote device check- Medtronic Allergies NSAIDS due to CKD Allergy (Unknown, Uncoded 05/07/24 13:24) n/a [facility] Medical History (Updated 05/28/24 @ 13:11 by Jon Stuart MD) Tricuspid regurgitation Kidney disease Pleuritic chest pain Cough Hemoptysis History of CVA with residual deficit (~04/2005) History of COVID-19 (~06/2020) SDH (subdural hematoma) Essential hypertension Normally functioning cardiac pacemaker present (~2006) Atherosclerotic cardiovascular disease Hyperlipidemia GERD (gastroesophageal reflux disease) Pacemaker (~2006) Diabetes mellitus Persistent atrial fibrillation Surgical History History of heart artery stent History of craniotomy History of permanent cardiac pacemaker placement (~09/2006) Family History Father No problems noted. Mother No problems noted. Social History Household Members: None Housing: Apartment Do you presently have visiting nurse or other home services: Yes Alcohol intake: unknown Comment: able to verbalize back the need to use call perez if he needs to get OOB Patient Tobacco Use Status: Former Tobacco user Second Hand Smoke Exposure: No service: No Current occupational status: retired Office Procedures Cardiac Device Check Cardiac Device Check Details: Date of service- 05/14/2024 ; Battery life >11 years; normal lead parameters; [employer] >99%; no significant arrhythmias. Overall normal device function. [id number] Cardiac Device Interrogation, pacemaker Procedure code (CPT) selection complete Assessment & Plan Assessment & Plan (1) Pacemaker: Onset Date: ~2006 Comment: (Medtronic SCPP - placed 2006, generator change 2013) Code(s): Z95.0 - Presence of cardiac pacemaker Category: Medical (2) Persistent atrial fibrillation: Code(s): I48.19 - Other persistent atrial fibrillation Category: Medical Plan x Coding Level of Care Code Procedure Only Diagnoses Pacemaker Z95.0 Persistent atrial fibrillation I48.19 CPT Codes Cardiac Device Check - Cardiac Device 12: [id number] Cardiac Device Interrogation, pacemaker ([id number])
== END ==
PROVIDERS: PCP Internal Medicine Geriatric Medicine; Visit Provider Internal Medicine
DX: I48.19 Other persistent atrial fibrillation (principal); Z95.0 Presence of cardiac pacemaker
CPT/HCPCS: 93294

== ENCOUNTER 2024-07-03 11:00 | Outpatient (AMB) | payer OTHER, SELFPAY ==
[2024-07-03 11:03] VITALS: BP 144/60; PULSE 77; BMI 25.9
--- NOTE | 2024-07-03 11:03 | MHC.OFFVIS ---
Vital Signs 07/03/24 11:03 Height 5 ft 7 in Weight 165 lb 5.547 oz BMI 25.9 BP 144/60 H Blood Pressure Location Rt brachial Position Sitting Pulse 77 Pulse Source Pulse Oximeter Intake Visit Reasons: 6 mth f/up [employer] Required: No Accompanied by: Self / Same As Patient Allergies NSAIDS due to CKD Allergy (Unknown, Uncoded 05/07/24 13:24) n/a Medication List - Last Reconciled 07/03/24 by Jon Stuart MD acetaminophen ER 650 mg PO Q12H PRN albuterol sulfate 90 mcg/actuation (Ventolin HFA) 2 puffs inhalation Q6H PRN amlodipine 2.5 mg PO QAM apixaban (Eliquis) 2.5 mg PO BID blood sugar diagnostic As directed blood-glucose meter (FreeStyle Sylvester Lite kit) As directed calcitriol 0.25 mcg PO Q OTHER DAY carvedilol 3.125 mg PO BID colchicine 0.6 mg PO DAILY fluticasone propionate 50 mcg/actuation 2 sprays intranasal DAILY 30 days furosemide 40 mg PO DAILY insulin aspart U-100 (Novolog FlexPen U-100 Insulin aspart) 10 units subcut DAILY@0730 insulin aspart U-100 (Novolog FlexPen U-100 Insulin aspart) 8 units subcut DAILY@1130 insulin aspart U-100 (Novolog FlexPen U-100 Insulin aspart) 12 units subcut DAILY@1730 insulin degludec (Tresiba FlexTouch U-100 insulin) 28 units subcut BEDTIME lancets As directed metolazone weekly omeprazole 20 mg PO DAILY pen needle, diabetic (BD Ultra-Fine Short Pen Needle) As directed rosuvastatin 10 mg PO DAILY spironolactone 12.5 mg PO QAM torsemide 80 mg (4 x 20 mg) PO DAILY tramadol 50 mg PO Q8H PRN HPI Comments Details: Dk returns for follow-up regarding atrial fibrillation, coronary disease and other concerns. He used to live here, then moved to [place] for some time, then moved back here. He has a history of coronary artery disease and underwent cardiac catheterization in [place] following an abnormal stress test. This showed diffuse CAD and he underwent stenting of the diagonal. He also has a history of chronic atrial fibrillation on Eliquis. He has had a stroke around 2004. He also has a history of pacemaker placement from 2006 with generator change in 2013 and again 2022. Other issues include type 2 diabetes, hypertension, dyslipidemia, chronic kidney disease. One fall in the past that led to a subdural hematoma that required drainage. Apparently, anticoagulation was briefly on hold and then resumed based on [place] records. Then, one further hospitalization for right heart failure. Then diuretics were further adjusted. More recently, he has been diagnosed to have a thoracic mass but no specific interventions for that. He has also been diagnosed with rectus sheath hematoma and supposed to get a CT scan for further evaluation but not yet performed. From cardiac, he states he feels good. No specific concerns. [facility] Medical History (Updated 05/28/24 @ 13:11 by Jon Stuart MD) Tricuspid regurgitation Kidney disease Pleuritic chest pain Cough Hemoptysis History of CVA with residual deficit (~04/2005) History of COVID-19 (~06/2020) SDH (subdural hematoma) Essential hypertension Normally functioning cardiac pacemaker present (~2006) Atherosclerotic cardiovascular disease Hyperlipidemia GERD (gastroesophageal reflux disease) Pacemaker (~2006) Diabetes mellitus Persistent atrial fibrillation Surgical History History of heart artery stent History of craniotomy History of permanent cardiac pacemaker placement (~09/2006) Family History Father No problems noted. Mother No problems noted. Social History Household Members: None Housing: Apartment Do you presently have visiting nurse or other home services: Yes Alcohol intake: unknown Comment: able to verbalize back the need to use call perez if he needs to get OOB Patient Tobacco Use Status: Former Tobacco user Second Hand Smoke Exposure: No service: No Current occupational status: retired Review of Systems Const Denies chills, Denies fatigue, Denies fever(s), Denies weight gain and Denies weight loss ENT Denies dizziness Card Denies chest pain, Denies leg edema, Denies lightheadedness, Denies palpitations, Denies dyspnea on exertion, Denies orthopnea and Denies other Resp Denies cough and Denies dyspnea on exertion GI Denies hematochezia and Denies change in stool character Musc Denies abnormal gait, Denies muscle weakness, Denies numbness, Denies radiating pain into limb and Denies tingling Neuro Denies abnormal gait, Denies dizziness, Denies numbness and Denies tingling Endo Denies fatigue and Denies palpitations Physical Exam Vital Signs: Last Vital Signs Pulse 77 07/03/24 11:03 BP 144/60 H 07/03/24 11:03 BMI result Body Mass Index 25.9 Const General: comfortable and no acute distress Orientation/consciousness: patient oriented x3 HEENT Other: Unremarkable Head: Yes normal to inspection Neck Neck: Yes normal visual inspection Chest Chest palpation & inspection: normal inspection of the chest Resp Auscultation: clear to auscultation bilaterally Cardio Palpation: normal PMI Heart sounds: S1 normal heart sound present, S2 normal heart sound present, no gallops, no murmurs and no rubs GI Palpation (GI): Soft to palpation Back/Spine/Pelvis Other: unremarkable Skin General skin exam: no rashes or lesions noted Neuro General: patient oriented x3 Extrem General: Yes normal to inspection Psych Mental Status: mental status grossly normal Assessment & Plan Assessment & Plan (1) Atherosclerotic cardiovascular disease: Code(s): I25.10 - Atherosclerotic heart disease of [place] coronary artery without angina pectoris Category: Medical Plan: Cardiac [id number]-status post diagonal stent, KRISTIE; nonobstructive disease LAD; moderate small-vessel disease in circumflex and RCA to be medically managed Continue beta-blockers and statins. He has a history of subdural bleed. Hence no need for antiplatelet agents in addition to Eliquis. Last available LDL cholesterol 59 mg/dL. Overall, remains stable. (2) Persistent atrial fibrillation: Code(s): I48.19 - Other persistent atrial fibrillation Category: Medical Plan: On Coreg/Eliquis. (3) Chronic right heart failure: Code(s): I50.812 - Chronic right heart failure Category: Medical Plan: Listed to be on torsemide/metolazone. No changes. Last available creatinine is 2.1. (4) Pericardial effusion: Code(s): I31.3 - Pericardial effusion (noninflammatory) Category: Medical Plan: Small pericardial effusion thought to be related to renal insufficiency. No intervention required. (5) Essential hypertension: Code(s): I10 - Essential (primary) hypertension Category: Medical Plan: Borderline high blood pressures. No changes made today. (6) SDH (subdural hematoma): Code(s): S06.5X9A - Traumatic subdural hemorrhage with loss of consciousness of unspecified duration, initial encounter Category: Medical Plan: No recurrent issues. (7) Normally functioning cardiac pacemaker present: Onset Date: ~2006 Comment: (Medtronic SCPP - placed 2006, generator change 2013) Code(s): Z95.0 - Presence of cardiac pacemaker Category: Medical Plan: Status post generator change 09/2022. Normal function. Coding Level of Care Code Est Pt Level 4 (26155) Diagnoses Atherosclerotic cardiovascular disease I25.10 Persistent atrial fibrillation I48.19 Chronic right heart failure I50.812 Pericardial effusion I31.3 Essential hypertension I10 SDH (subdural hematoma) S06.5X9A Normally functioning cardiac pacemaker present Z95.0
--- OUTSIDE RECORDS SUMMARY | 2024-07-03 12:56 | XMS_ITS | Continuity of Care Document ---
Author Organization [employer] Reminder [facility], [place] [employer] Address [address] [place] [id number] Care Team Providers Care Spray I Painter Name Role Phone [facility] OTHER [facility] OTHER Assessment Encounter Date Assessment Date Assessment LastModified by Organization Details LastModified Time 06/21/2024 06/21/2024 I have reviewed and agree with the assessment and plan as documented by the insole tape stitcher uco. I provided real-time medical direction for this encounter and was immediately available to provide additional phone-based assistance as needed. 83M presenting with bilateral nipple tenderness. No swelling, no redness, no bleeding. Denies any other symptoms. O/E: Vitals at baseline, area appears unremarkable, no swellinig or erythema. No warmth. Nipples appear normal, slight chafing visualized. No gynecomastia. Pt using tight wool shirts that sometimes cause itchiness. Recommend supportive care, vaseline/barri er cream and loose clothing. Advised to follow up with his PCP, red flags discussed. paysola Not available 06/21/2024 18:26:26 Plan of Treatment Reminders Order Date Submit Date Provider Last Modified By Organization Details Last Modified Time Details Appointments None record ed. Lab None record ed. Referral None record ed. Procedures None record ed. Surgeries None record ed. Imaging None record ed. Medication Orders None record ed. Patient TargetsNo targets recorded. Patient InstructionsNo instructions recorded. Reason for Referral None Reported. Medical Equipment None Reported. Allergies Allergen ID Allergen Name Allergen Category Reaction Reaction Severity Criticality Documentation Date Start Date Code Code System Note Provider Name and Address Organization Details Recorded Time 84735 ibuprofen medicatio n Not available Not available Not available 06/21/2024 5640 RxNorm Not Available [facility] - production 10:31:31 Medications Name Sig Start Date Stop Date Status Note LastModified by Organization Details LastModified Time medbox status USE DIRECTED active Not Available Not Available No t Available metolazone 2.5 mg tablet active Not Available Not Available Not Available silver sulfadiazine 1 % topical cream APPLY TO THE AFFECTED AREA(S) TWICE DAILY active Not Available Not Available Not Available prednisone 10 mg tablet TAKE 3 TABLETS BY MOUTH EVERY MORNING FOR 5 DAYS active Not Available Not Available No t Available torsemide 20 mg tablet TAKE 4 TABLETS BY MOUTH EVERY MORNING active Not Available Not Available No t Available prednisone 20 mg tablet TAKE 2 TABLETS BY MOUTH ONCE DAILY FOR 5 DAYS active Not Available Not Available No t Available amlodipine 2.5 mg tablet TAKE 1 TABLET BY MOUTH EVERY MORNING active Not Available Not Available No t Available sildenafil 25 mg tablet TAKE 1 TABLET 1 HOUR BEFORE SEXUAL RELATIONS ONCE DAILY NEEDED. active Not Available Not Available N ot Available tramadol 50 mg tablet TAKE 1/2 TABLET BY MOUTH EVERY TWELVE HOURS NEEDED FOR SEVERE PAIN active Not Available Not Available Not Available acetaminophe n 500 mg tablet TAKE 1 TABLET BY MOUTH EVERY 8 HOURS NEEDED FOR MILD PAIN TO DOLOR MODERADO active Not Available Not Available No t Available spironolacto ne 25 mg tablet TAKE 1/2 TABLET BY MOUTH EVERY MORNING active Not Available Not Available No t Available carvedilol 3.125 mg tablet TAKE 1 TABLET BY MOUTH TWICE DAILY IN THE MORNING AND IN THE EVENING WITH FOOD active Not Available Not Available No t Available acetaminophe n ER 650 mg tablet,exten ded release TAKE 1 TABLET BY MOUTH EVERY TWELVE HOURS NEEDED FOR MILD PAIN active Not Available Not Available No t Available potassium chloride ER 20 mEq tablet,exten ded release(part /cryst) TAKE 1 TABLET BY MOUTH EVERY MORNING active Not Available Not Available No t Available potassium citrate ER 10 mEq (1,080 mg) tablet,exten ded release TAKE 1 TABLET BY MOUTH EVERY MORNING FOR 2 DAYS IN ADDITION TO 20 meq tablet, THEN STOP BOTH active Not Available Not Available No t Available lidocaine 5 % topical patch APPLY 1 PATCH TOPICALLY TO SKIN IN THE MORNING. LEAVE ON FOR 12 HOURS AND OFF FOR 12 HOURS DIRECTED active Not Available Not Available No t Available glucose 4 gram chewable tablet CHEW 4 TABLETS BY MOUTH NEEDED FOR LOW BLOOD SUGAR MAY REPEAT IN 15 mins NEEDED active Not Available Not Available No t Available omeprazole 20 mg capsule,yohan yed release TAKE 1 CAPSULE BY MOUTH EVERY MORNING WITH BREAKFAST active Not Available Not Available No t Available gabapentin 100 mg capsule TAKE 1 CAPSULE BY MOUTH EVERY EVENING active Not Available Not Available No t Available ferrous sulfate 325 mg (65 mg iron) tablet,delay ed release TAKE 1 TABLET BY MOUTH EVERY MORNING WITH BREAKFAST active Not Available Not Available No t Available fluticasone propionate 50 mcg/actuatio n nasal spray,suspen renzo USE 2 SPRAYS IN EACH NOSTRIL EVERY DAY active Not Available Not Available No t Available clotrimazole 1 % topical cream APPLY TOPICALLY TO AFFECTED AREA(S) AND SURROUNDING AREA(S) OF SKIN TWICE DAILY TWICE DAILY IN THE MORNING AND IN THE EVENING active Not Available Not Available No t Available calcitriol 0.25 mcg capsule TAKE 1 CAPSULE BY MOUTH EVERY OTHER DAY IN THE MORNING active Not Available Not Available No t Available Novolog FlexPen U-100 Insulin aspart 100 unit/mL (3 mL) subcutaneous INJECT 8 UNITS SUBCUTANEOU SLY WITH LUNCH AND WITH DINNER active Not Available Not Available Not Available rosuvastatin 10 mg tablet TAKE 1 TABLET BY MOUTH EVERY EVENING active Not Available Not Available No t Available Alcohol Prep Pads USE FOUR TIMES DAILY active Not Available Not Available Not Available diclofenac 1 % topical gel APPLY 2 GRAMS TOPICALLY FOUR TIMES DAILY NEEDED FOR PAIN active Not Available Not Available No t Available TRUEplus Lancets 33 gauge TEST BLOOD SUGAR FOUR TIMES DAILY DIRECTED active Not Available Not Available Not Available Eliquis 2.5 mg tablet TAKE 1 TABLET BY MOUTH TWICE DAILY IN THE MORNING AND IN THE EVENING active Not Available Not Available No t Available Tresiba FlexTouch U-100 insulin 100 unit/mL (3 mL) subcutaneous pen INJECT 22 UNITS SUBCUTANEOU SLY AT BEDTIME active Not Available Not Available No t Available FreeStyle Precision David Strips USE DIRECTED TO TEST BLOOD SUGAR THREE TIMES DAILY active Not Available Not Available Not Available TechLITE Pen Needle 32 gauge x 5/32 USE DIRECTED FOUR TIMES DAILY active Not Available Not Available No t Available baclofen 5 mg tablet TAKE 1 TABLET BY MOUTH THREE TIMES DAILY IN THE MORNING, AT NOON, AND AT BEDTIME NEEDED FOR MUSCLE SPASMS active Not Available Not Available No t Available FreeStyle Elizabeth 2 Sensor kit USE DIRECTED CHANGE EVERY 14 DAYS active Not Available Not Available No t Available Vitals Date Recorded Body temperature Respiratory rate Body height Heart rate Oxygen saturation Oxygen saturation in Arterial blood by Pulse oximetry Body weight Systolic blood pressure Diastolic blood pressure Provider Name and Address Organization Details Last Updated DateTime 5 98.7 [degF] 19 /min 170.18 cm 81 /min 99 % 99 % 80934.0 88 g 166 mm[Hg] 74 mm[Hg] Not Available [facility] - production 18:23:39 Social History None recorded. Functional Status None recorded. Mental Status None recorded. Family History Nothing Reported. Medical History No medical history recorded. Past Encounters Encounter ID Performer Location Encounter Start Date Encounter Closed Date Diagnosis/Indication Diagnosis SNOMED-CT Code Diagnosis ICD10 Code Diagnosis Note [id number] Isatu Medeiros MD Main - [facility] [address] [place] [address] 06/21/2024 18:23:38 06/21/2024 22:05:46 Sore nipple 566725788 N64.59 Health Concerns Section Related Observation LastModified by Organization Detai ls LastModified Time None Recorded Concern Status LastModified by Organization Details LastModified Time None Recorded Payers Encounter Date Sequence Insurance Name Policy Number Policy Willingham Covered Member ID Willingham Member ID Guarantor Name 06/21/2024 1 [facility] - DOS ON OR AFTER 2022 - DUAL ELIGIBLE - [employer] AND ONE C[employer] (MEDICARE REPLACEMENT/ADV ANTAGE - HMO) Dk Sepulveda [id number] Dk Sepulveda Notes Date Note Type Note Provider Name and Address Organization Details Recorded Time 06/21/2024 text/html HPI: Patient reports bilateral 'Nipple bumps painful and present for several weeks. No santos no redness or bleeding no fluid filled blisters. ................... ................... ................... ................... ................... ................... ................... ........ [facility] Nurse Triage Notes (Vani Medina - RN): Chief Complaints: Rash PMH: Hypertension, Chronic Kidney Disease, Diabetes Mellitus Type 2, Coronary Artery Bypass Grafting (CABG), Coronary Artery Disease Comments: [facility] RN did not require any additional information to process this visit. ................... ................... ................... ................... ................... ................... ................... ........ [employer] Farm Manager Note From Maribel Arcos: Pt chief complaint today of bilaterally pinpoint nipple pain. Pt states that this has been going on for approx 3 weeks at this point. Pt states that there is only pain directly in the tips of his nipples and not in the surrounding area. No bleeding noted and or swelling. Pt is looking to day for a general assessment of the area in question as well as treatment if found necessary. Pt allergies noted as none. Pt denies any cardiac cp, sob, NVD, dizziness or blurred vision.Nonneural focal exam, afebrile, vitals WNL, lungs are noted to be clear bilaterally on auscultation. Benign abdominal assessment. No lower extremity edema noted. Upon visualization of the affected area, no bleeding , reddening or swelling of the area of the surrounding tissue. Pain is reproducible on palpation with a score of 4/10. Pt CAOX4 with a GCS of 15.[facility] isatu medeiros consulted.Pt informed of possible chaffing of the area. Pt I aguirre to use lotion/ Vaseline on the area for a protective barrier as well as to wear less abrasive material on his upper body.Pt told to co tact his pcp if pain persists after x1 week of [facility] visit. Pt educated on red flag S&S and told to seek medical assistance if any present. ................... ................... ................... ................... ................... ................... ................... ........ [facility] Consulted: Isatu Medeiros ................... ................... ................... ................... ................... ................... ................... ........ Disposition: Fulfilled Isatu Medeiros MD [address] [facility],[address], [place], [address], [facility] 06/21/2024 19:19:21
== END 2024-07-03 11:24 | disposition home or self-care (01) ==
PROVIDERS: PCP Internal Medicine Geriatric Medicine; Visit Provider Internal Medicine
DX: I25.10 Atherosclerotic heart disease of native coronary artery without angina pectoris (principal); I48.19 Other persistent atrial fibrillation; I50.812 Chronic right heart failure; I31.39 Other pericardial effusion (noninflammatory); I10 Essential (primary) hypertension; S06.5X9A Traumatic subdural hemorrhage with loss of consciousness of unspecified duration, initial encounter; Z95.0 Presence of cardiac pacemaker
CPT/HCPCS: 99214

== ENCOUNTER → 2024-07-03 11:00 | Outpatient (BNVA) | payer OTHER, SELFPAY | PROVIDERS: PCP Internal Medicine Geriatric Medicine; Visit Provider Internal Medicine | DX: I25.10 Atherosclerotic heart disease of native coronary artery without angina pectoris (principal); I48.19 Other persistent atrial fibrillation; I11.0 Hypertensive heart disease with heart failure; I50.812 Chronic right heart failure; I31.39 Other pericardial effusion (noninflammatory); E78.5 Hyperlipidemia, unspecified; Z95.0 Presence of cardiac pacemaker | CPT/HCPCS: 99212 ==

== ENCOUNTER 2024-07-26 13:49 | Outpatient (REF) | payer OTHER, SELFPAY | END 2024-07-26 13:50 | disposition home or self-care (01) | LOC: HO.CT 13:49 | PROVIDERS: PCP Internal Medicine Geriatric Medicine; Visit Provider Surgery | DX: S30.1XXA Contusion of abdominal wall, initial encounter (principal) | CPT/HCPCS: 74176 ==

== ENCOUNTER 2024-09-04 15:04 | Outpatient (REF) | payer OTHER, SELFPAY ==
[2024-09-04 16:17] LABS: MANUAL DIFF FLAG NO
[2024-09-04 16:35] LABS: Basophils Percent Auto 0.2 % (0-2); Eosinophils Absolute Auto 0.2 X10*3/uL (0.0-0.4); Eosinophils Percent Auto 2.3 % (0-4); Hematocrit 31.7 % (42.0-52.0); Hemoglobin 10.7 g/dl (14.0-18.0); Imm Gran Abs Auto 0.03 X10*3/uL (0.00-0.03); Imm Gran Pct Auto 0.5 % (0.0-0.4); Lymphocytes Absolute Auto 1.7 X10*3/uL (1.2-4.9); Lymphocytes Percent Auto 25.6 % (20-40); Mean Corpuscular HGB Conc 33.8 g/dl (31.0-36.0); Mean Corpuscular Hemoglobin 29.9 pg (27.0-33.0); Mean Corpuscular Volume 88.5 fL (80.0-98.0); Mean Platelet Volume 9.8 fL (9.4-12.4); Monocytes Absolute Auto 0.5 X10*3/uL (0.1-1.2); Monocytes Percent Auto 8.1 % (2-11); Neutrophils Absolute Auto 4.1 x10*3/uL (2.0-8.3); Neutrophils Percent Auto 63.3 % (45-73); Platelet Count 129 X10*3/uL (160-400); Red Blood Count 3.58 X10*6/uL (4.60-5.80); Red Cell Distribution Width 15.3 % (11.0-16.0); White Blood Count 6.4 X10*3/uL (4.8-10.8)
--- OUTSIDE RECORDS SUMMARY | 2024-09-04 17:09 | XMS_ITS | Encounter Summary ---
Author Organization [facility] Brittni utielder Address [address], [place] [address] Phone Care Team Providers Care Nursing Services Manager Name Role Phone Anthony Ramirez MD Primary Care Provider Unav ailable Encounter Details Date Type Department Care Team (Late st Contact Info) Description 09/19/2016 Office Visit [facility] [address], [place] [phone] Provider, MD Cindy [address] [place] [phone] Social History Tobacco Use Types Packs/Day Years Used Date Smoking Tobacco: Never Assessed Sex and Gender Information Value Date Recorded Sex Assigned at Not on file Gender Identity Not on file Sexual Orientation Not on file documented as of this encounter Plan of Treatment Not on file documented as of this encounter Visit Diagnoses Not on filedocumented in this encounter Care Teams Nursing Services Manager Relationship Specialty Start Date End Date Anthony Ramirez MD PCP - General 07/06/16 documented as of this encounter
--- OUTSIDE RECORDS SUMMARY | 2024-09-04 17:09 | XMS_ITS | Encounter Summary ---
Author Organization [facility] Address [address], [place] [address] Phone Care Team Providers Care Baler Name Role Phone Anthony Ramirez MD Primary Care Provider Unav ailable Encounter Details Date Type Department Care Team (Late st Contact Info) Description 08/08/2016 Office Visit [facility] [address] [place], [place] [phone] Provider, MD Cindy [address] [place] [phone] Social History Tobacco Use Types Packs/Day Years Used Date Smoking Tobacco: Never Assessed Sex and Gender Information Value Date Recorded Sex Assigned at Not on file Gender Identity Not on file Sexual Orientation Not on file documented as of this encounter Plan of Treatment Not on file documented as of this encounter Visit Diagnoses Not on filedocumented in this encounter Care Teams Baler Relationship Specialty Start Date End Date Anthony Ramirez MD PCP - General 07/06/16 documented as of this encounter
--- OUTSIDE RECORDS SUMMARY | 2024-09-04 17:09 | XMS_ITS | Data Portability ---
Author Organization [facility], [place] Address [address] [place] [address] Care Team Providers Care Brim Flexer Name Role Phone [facility] OTHER [facility] OTHER Assessment Encounter Date Assessment Date Assessment LastModified by Organization Details LastModified Time 01/23/2024 01/23/2024 As noted, we were called to see this patient regarding concerns of rash.Evaluation in the field was performed by my grades 9 through 12 teacher colleague, as noted above, I provided real-time direction and supervision for this visit. The evaluation revealed itchy rash to scrotal area consistent with tinea cruris. appropriate for treatment with topical antifungals. Impression: tinea cruris Plan: topical antifungal clotrimazole Disposition: We discussed the diagnostic uncertainty of home visits and the risk associated with this. In this case, the patient and I felt this to be an acceptable and reasonable amount of risk given the benefit of avoiding an ED visit. We discussed the need to seek care urgently/emerge ntly in the setting of any new or worsening serious symptoms, particularly open lesions or pain Not available 01/23/2024 10:53:55 06/21/2024 06/21/2024 I have reviewed and agree with the assessment and plan as documented by the grades 9 through 12 teacher. I provided real-time medical direction for this [...] that sometimes cause itchiness. Recommend supportive care, vaseline/ramila r cream and loose clothing. Advised to follow up with his PCP, red flags discussed. [email or web address] Not available 06/21/2024 18:26:26 07/15/2024 07/15/2024 As noted, we were called to see this patient regarding concerns of cough. Evaluation in the field was performed by my grades 9 through 12 teacher colleague, as noted above, I provided real-time direction and supervision for this visit. The evaluation revealed An 83 year old male with a past medical history of Hypertension, Chronic Kidney Disease, Diabetes Mellitus Type 2, Coronary Artery Bypass Grafting (CABG), Coronary Artery Disease, and a pacemaker on [facility] who presents with sore throat and cough. This has been going on since Monday. No shortness of breath no chest pain no abdominal pain. Patient has some fatigue. Patient is able to eat and drink on his own. On the paramedics exam the patient does not have any signs of respiratory distress. He has a normal oxygen saturation. He has normal vital signs. He appears well hydrated. He was tested for COVID-19, influenza and strep. His COVID-19 test is positive. His symptoms have been going on for a couple days now. He is not a candidate for Paxlovid. I recommended symptomatic control and Tylenol. Impression: Acute covid 19 infection Plan: 1) covid test + 2) Flu and strep negative 3) not a candidate for Paxlovid pt on [facility] Primary care, consider f/u clinical status Disposition: stay at home We discussed the diagnostic uncertainty of home visits and the risk associated with this. In this case, the patient and I felt this to be an acceptable and reasonable amount of risk given the benefit of avoiding an ED visit. We discussed the need to seek care urgently/emerge ntly in the setting of any new or worsening serious symptoms, particularly SOB or chest pain [email or web address] Not available 07/15/2024 20:49:23 Plan of Treatment Reminders Order Date Submit Date Provider Last Modified By Organization Details Last Modified Time Details Appointments None recorded. Lab rapid SARS CoV 2 Ag, QL IA, respiratory specimen 2024 025 [email or web address], [id number], 20:20:28 rapid flu (A+B) 2024 025 [email or web address] 7 [facility], [address] [place] [address], [phone], 5 20:20:28 rapid strep group A, throat 2024 025 [email or web address] 7 [facility], [address] [place] [address], [phone], 5 20:20:28 Referral None recorded. Procedures None recorded. Surgeries None recorded. Imaging None recorded. Medication Orders clotrimazol e 1 % topical cream 2023 024 [facility], [address], [place], [id number], 4 10:46:07 Patient TargetsNo targets recorded. Patient InstructionsNo instructions recorded. Reason for Referral None Reported. Results Created Date Observation Date Name Description Value Unit Range Abnormal Flag Note LastModifiedBy Organization Detail LastModifiedTime Result Notes None recorded. Medical Equipment None Reported. Allergies Allergen ID Allergen Name Allergen Category Reaction Reaction Severity Criticality Documentation Date Start Date Code Code System Note Provider Name and Address Organization Details Recorded Time 81678 ibuprofen medicatio n Not available Not available [...] t Available Vitals Date Recorded Body temperature Oxygen saturation Oxygen saturation in Arterial blood by Pulse oximetry Respiratory rate Heart rate Systolic blood pressure Diastolic blood pressure Provider Name and Address Organization Details Last Updated DateTime 4 97.6 [degF] 96 % 96 % 16 /min 79 /min 149 mm[Hg] 63 mm[Hg] Not Available [employer] 4 10:41:48 Date Recorded Body temperature Respiratory rate Body height Heart rate Oxygen saturation Oxygen saturation in Arterial blood by Pulse oximetry Body weight Systolic blood pressure Diastolic blood pressure Provider Name and Address Organization Details Last Updated DateTime 5 98.7 [degF] 19 /min 170.18 cm 81 /min 99 % 99 % 00504.0 88 g 166 mm[Hg] 74 mm[Hg] Not Available [employer] 5 18:23:39 Date Recorded Heart rate Oxygen saturation Oxygen saturation in Arterial blood by Pulse oximetry Body height Respiratory rate Body temperature Body weight Systolic blood pressure Diastolic blood pressure Provider Name and Address Organization Details Last Updated DateTime 88 /min 99 % 99 % 170.18 cm 18 /min 98.7 [degF] 37481.6 8 g 162 mm[Hg] 81 mm[Hg] Not Available [facility] - production 20:17:40 Social History None recorded. Functional Status None recorded. Mental Status None recorded. Family History Nothing Reported. Medical History No medical history recorded. Past Encounters Encounter ID Performer Location Encounter Start Date Encounter Closed Date Diagnosis/Indication Diagnosis SNOMED-CT Code Diagnosis ICD10 Code Diagnosis Note [id number] Reagan Rodríguez MD [facility] [address] [place] [phone] 01/23/2024 10:41:42 01/23/2024 11:11:17 Tinea cruris 891113288 B35.6 isolated to groin, plan for topical antifungal s [id number] Isatu Medeiros MD [facility] [address] [place] [id number] 06/21/2024 18:23:38 06/21/2024 22:05:46 Sore nipple 985528860 N64.59 [id number] JANET STUART MD [facility] [address] [place] [phone] 07/15/2024 20:17:33 07/15/2024 21:31:59 Acute COVID-19 8101528141 U07.1 Health Concerns Section Related Observation LastModified by Organization Detai ls LastModified Time None Recorded Concern Status LastModified by Organization Details LastModified Time None Recorded Advance Directives Directive None Recorded Payers Encounter Date Sequence Insurance Name Policy Number Policy Willingham Covered Member ID Willingham Member ID Guarantor Name 01/23/2024 1 [facility] - DOS ON OR AFTER 2022 - DUAL ELIGIBLE - SNF OPTIONS AND ONE CARE (MEDICARE REPLACEMENT/ADV ANTAGE - HMO) Dk Sepulveda [id number] Dk Sepulveda 06/21/2024 1 [facility] - DOS ON OR AFTER 2022 - DUAL ELIGIBLE - SNF OPTIONS AND ONE CARE (MEDICARE REPLACEMENT/ADV ANTAGE - HMO) Dk Sepulveda [id number] Dk Sepulveda 07/15/2024 1 [facility] - DOS ON OR AFTER 2022 - DUAL ELIGIBLE - SNF OPTIONS AND ONE CARE (MEDICARE REPLACEMENT/ADV ANTAGE - HMO) Dk Beltranzquez [id number] Dk Derick Notes Date Note Type Note Provider Name and Address Organization Details Recorded Time 01/23/2024 text/html HPI: Patient with complaints of rash inner thighs and scrotum area. MANAGER WELDING reports flat red like a jig saw puzzle no bleeding. ...................... ...................... ...................... ...................... ...................... ...................... ......... [facility] Nurse Triage Notes (Asia Davenport): Chief Complaints: Rash PMH: Diabetes, Hypertension Other Allergies: NSAIDS Comments: [facility] RN DID NOT NEED FURTHER INFO 1999: Unable to reach member (2 separate attempts made) to reschedule appointment d/t capacity issues. Member called with interpreter and translator services. VM left by interpreter and translator explaining to member that he would be rescheduled for evaluation tomorrow, 01/22/24. Education provided on the response time and the member was advised to monitor reported s/s and seek emergency treatment if needed. ...................... ...................... ...................... ...................... ...................... ...................... ......... [employer] Note From Contreras Wheatley: Pt reports several days of itchy rash in his inner thighs/groin. Pt denies drainage, f/n/v/d. Pt is alert, NAD. VSS. Afebrile. Non focal neuro exam. Normal gait. Bilateral erythema and smell c/w cutaneous candidiasis. [facility] to send rx to pharmacy. Pt to f/u with PCP. ...................... ...................... ...................... ...................... ...................... ...................... ......... Disposition: Fulfilled Reagan Rodríguez MD [address] [place] [address],[address], [place], [address], [facility] 01/23/2024 10:55:06 06/21/2024 text/html HPI: Patient reports bilateral 'Nipple bumps painful and present for several weeks. No santos no redness or bleeding no fluid filled blisters. ...................... ...................... ...................... ...................... ...................... ...................... ......... [facility] Nurse Triage Notes (Vani Medina - LUIS): Chief Complaints: Rash PMH: Hypertension, Chronic Kidney Disease, Diabetes Mellitus Type 2, Coronary Artery Bypass Grafting (CABG), Coronary Artery Disease Comments: [facility] RN did not require any additional information to process this visit. ...................... ...................... ...................... ...................... ...................... ...................... ......... [employer] Note From Maribel Arcos: Pt chief complaint [...] 4/10. Pt CAOX4 with a GCS of 15.[facility] isatu medeiros consulted.Pt informed of possible chaffing of the area. Pt I aguirre to use lotion/ Vaseline on the area for a protective barrier as well as to wear less abrasive material on his upper body.Pt told to co tact his pcp if pain persists after x1 week of [facility] visit. Pt educated on red flag S&S and told to seek medical assistance if any present. ...................... ...................... ...................... ...................... ...................... ...................... ......... [facility] Consulted: Isatu Medeiros ...................... ...................... ...................... ...................... ...................... ...................... ......... Disposition: Fulfilled Isatu Medeiros MD [address] [place] [address],[address], [place], [phone], [facility] 06/21/2024 19:19:21 07/15/2024 text/html [facility] Nurse Triage Notes (Lanette Costa - RN): Reason For Request: Patient doesn't look well ,doesn't feel well, after a bath and food patient just has a cough, eyes are red, and throat pain temp 98.4. Patient Reports: CoughDenies: Increased work of breathing/labored ? with or without fever Unable to speak in full sentences without distress Discoloration of skin -cyanosis Needs to sleep sitting up, can? t catch breath Shortness of breath in setting of confusion Chief Complaints: Sore throatPMH: Hypertension, Chronic Kidney Disease, Diabetes Mellitus Type 2, Coronary Artery Bypass Grafting (CABG), Coronary Artery Disease, OtherPMH Reviewed at 07/15/2024 13:17Allergies Reviewed at 07/15/2024 13:17Comments: Other PMH: PacemakerSymptoms of cough, sore throat and weakness starting 2 days ago. Temp 98.4 today. Cough is non-productive. Patient has nasal congestion. Denies chest pain or shortness of breath. Taking Tylenol as needed. last dose at 1030am today. Education provided on the response time and the member was advised to monitor reported s/s and seek emergency treatment if needed. [employer] Organization Information for Merrick Gibbsgerber Legal Name: [email or web address], [email or web address].?Address: [address] [place] [address], [place] [address], [facility] Director: Nando Reyes [employer] No.: [id number] [employer] POC Test Results from Merrick Gibbs Rapid COVID antigen (20:14:15)COVID: + Rapid influenza antigen (20:14:15)Flu: - Rapid strep test (20:14:16)Strep: - ...................... ...................... ...................... ...................... ...................... ...................... ......... [employer] Note From Merrick Gibbs: SC1 dispatched to the above address for the pt reporting a sore throat since Monday. The pt was called through the [employer] system and he came from the 3rd floor to allow access into the building. The pt stated he has felt weak and had the sore throat since Monday and not wanting to do much. The pt was tested for Covid, Flu A+B and also Strep. The pts results were negative for the flu and strep but he came back positive for Covid. The pt denies any chest pain and or severe shortness of breath and syncope. The pt does have a pacemaker and he has also had a CABAG and is also on Eliquis. Dr Stuart was consulted and he states the pt is outside the window of using Paxlovid and it doesn't mix well with the Eliquis. The pt was advised to drink plenty of fluids and keep taking his Tylenol and he should start feeling better by Monday. The pt understood the instructions and SC1 cleared the call. WRR ...................... ...................... ...................... ...................... ...................... ...................... ......... [facility] Consulted: Janet Stuart ...................... ...................... ...................... ...................... ...................... ...................... ......... Disposition: Fulfilled JANET STUART MD [address] [facility],[address], [place], [address], [facility] 07/15/2024 20:50:13
--- OUTSIDE RECORDS SUMMARY | 2024-09-04 17:09 | XMS_ITS | Encounter Summary ---
Author Organization [facility]ielder Address [address], [place] [address] Phone Care Team Providers Care Senior Linux Unix Engineer Name Role Phone Anthony Ramirez MD Primary Care Provider Unav ailable Encounter Details Date Type Department Care Team (Late st Contact Info) Description 08/08/2016 Office Visit [facility] [address] [place], [place] [phone] Provider, MD Cindy [address] [place] [address] Social History Tobacco Use Types Packs/Day Years Used Date Smoking Tobacco: Never Assessed Sex and Gender Information Value Date Recorded Sex Assigned at Not on file Gender Identity Not on file Sexual Orientation Not on file documented as of this encounter Plan of Treatment Not on file documented as of this encounter Visit Diagnoses Not on filedocumented in this encounter Care Teams Senior Linux Unix Engineer Relationship Specialty Start Date End Date Anthony Ramirez MD PCP - General 07/06/16 documented as of this encounter
--- OUTSIDE RECORDS SUMMARY | 2024-09-04 17:09 | XMS_ITS | Encounter Summary ---
Author Organization [facility] Address [address] [address] Phone Care Team Providers Care Motor Operator Name Role Phone Name, Juan M BLUE Primary Care Provider [phone] Reason for Visit * Reason Comments Renal osteodystrophy Encounter Details Date Type Department Care Team ([facility] st Contact Info) Description 09/02/2024 1:45 PM EDT [facility] Visit [facility] [address] [place] [phone] Arpit Bundy MD [address] [phone] Stage 3b chronic kidney disease (HCC) (Primary Dx); Renal osteodystrophy; Chronic kidney disease, stage 4 (severe) (HCC); Essential hypertension Social History Tobacco Use Types Packs/Day Years Used Date Smoking Tobacco: Former Smokeless Tobacco: Never Alcohol Use Standard Drinks/Week Comments Not Currently 0 (1 standard drink = 0.6 oz pur e alcohol) Sex and Gender Information Value Date Recorded Sex Assigned at Not on file Legal Sex Male 5:04 PM EST Gender Identity Not on file Sexual Orientation Not on file documented as of this encounter Last Filed Vital Signs Vital Sign Reading Time Taken Comments Blood Pressure 120/80 09/02/2024 1:44 PM EDT Pulse 94 09/02/2024 1:44 PM EDT Temperature - - Respiratory Rate - - Oxygen Saturation 99% 09/02/2024 1:44 PM EDT Inhaled Oxygen Concentration - - Weight 73.3 kg (161 lb 9.6 oz) 09/02/2024 1:44 P M EDT Height - - Body Mass Index 25.31 01/14/2019 12:00 PM EDT documented in this encounter Patient Instructions * Patient Instructions* Arpit Bundy MD - 09/02/2024 1:45 PM EDT Sodium and Your CKD Diet: How to Spice Up Your Cooking What is sodium? Sodium is a mineral found naturally in foods and is the major part of table salt. What are the effects of eating too much sodium? When your kidneys are not healthy, extra sodium and fluid build up in your body. This can cause swollen ankles, puffiness, a rise in blood pressure, shortness of breath, and/or fluid around your heart and lungs. See the following table for suggestions on how to reduce sodium in your diet. LIMIT THE [AMOUNT OF... FOOD TO LIMIT BECAUSE OF THEIR HIGH SODIUM CONTENT ACCEPTABLE SUBSTITUTES SALT & SALT SEASONINGS Table salt Seasoning salt Garlic salt Onion salt Celery salt Lemon pepper Lite salt Meat tenderizer Bouillon cubes Flavor enhancers Fresh garlic, fresh onion, garlic powder, onion powder, black [pepper, lemon juice, low-sodium/salt-free seasoning blends, vinegar SALTY FOODS Barbecue sauce Steak sauce Soy sauce Teriaky sauce Oyster sauce Salted Snacks such as Crackers Potato chips [place] chips Pretzels Tortilla chips Nuts Popcorn [place] seeds Homemade or low- sodium sauces and salad dressings; Vinegar, dry mustard, unsalted popcorn, pretzels, tortilla or corn chips Cured Foods Ham Salt pork [place]aggoner Sauerkraut Pickles, pickle relish Lox & Goldman Olives Fresh beef, veal, pork, poultry, fish, eggs [place] MEATS Hot Dogs Cold cuts, deli meats Pastrami Sausage Corned beef Spam Low-salt deli meats PROCESSED FOODS Buttermilk Cheese Canned: Soups Tomato products Vegetable juices Canned vegetables Convenience Foods such as: TV Dinners Canned raviolis [place] Macaroni & Cheese Spaghetti Frozen prepared foods Fast foods Natural cheese (1-2 oz Per week) Homemade or maci,1- sodium soups, canned food without added salt Homemade casseroles without added salt, made with fresh or raw vegetables, fresh meat, jose j, pasta, or unsalted canned vegetables Some salt or sodium is needed for body water balance. But when your kidneys lose the ability to control sodium and water balance, you may experience the following: thirst fluid gain high blood pressure discomfort during dialysis By using less sodium in your diet, you can control these problems. Hints to keep your sodium intake down Cook with herbs and spices instead of salt. (Refer to Spice Up Your Cooking section for further suggestions.) Read food labels and choose those foods low in sodium. Avoid salt substitutes and specialty low-sodium foods made with salt substitutes because they are high in potassium. When eating out, ask for meat or fish without salt. Ask for gravy or sauce on the side; these may contain large amounts of salt and should be used in small amounts . Limit use of canned, processed and frozen foods. Some information about reading labels Understanding the terms: Sodium Free - Only a trivial amount of sodium per serving. Very Low Sodium - 35 mg or less per serving. Low Sodium - 140 mg or less per serving. Reduced Sodium - Foods in which the level of sodium is reduced by 25%. Light or Lite in Sodium - Foods in which the sodium is reduced by at least 50% . Simple rule of thumb : If salt is listed in the first five ingredients, the item is probably too high in sodium to use. All food labels now have milligrams (mg) of sodium listed. Follow these steps when reading the sodiwn information on the label: 1. Know how much sodium you are allowed each day. Remember that there are 1000 milligrams (mg) in 1gram. For aawm2goz, if your diet prescription is 2 grams of sodium , your limit is 2000 milligrams per day. Consider the sodium value or other food to be eaten during the day. 2. Look at the package label. Check the serving size. Nutrition values are expressed per deng g. How does this compare to your total daily allowance? If the sodium level is 500 mg or more per serving, the item is not a good choice. 3. Compare labels of similar products. Select the lowest sodium level for the same serving size. How to Spice Up Your Cooking Giving up salt does not mean giving up flavor. Learn to season your food with herbs and spices. Be creative and experiment for a new and exciting flavor. What kinds of spices and herbs should I use instead of salt to add flavor? Try the following spices with the foods listed. Allspice: Use with beef, fish, beets, cabbage, canots, peas, fruit. Basil: Use with beef, pork, most vegetables. [place]: Use with beef, pork, most vegetables. [place]: Use with beef, pork, green beans, cauliflower, cabbage, beets, asparagus, and in dips and marinades. Cardamom: Use with fruit and in baked goods. [place]aza: Use with beef, chicken, pork, fish, green beans, carrots and in marinades. Dill: Use with beef, chicken, green beans, cabbage, carrots, peas and in dips. Lupe: Use with beef, chicken, pork, green beans, cauliflower and eggplant. Marjoram: Use with beef, chicken, pork, green beans, cauliflower and eggplant. Bree: Use with chicken, pork, cauliflower, peas and in marinades. Thyme: Use with beef, chicken, pork, fish, green beans, beets and carrots. Virgil: Use with chicken, pork, eggplant and in dressing. Tarragon: Use with fish, chicken, asparagus, beets, cabbage, cauliflower and in marinades. Tips for cooking with herbs and spices Purchase spices and herbs in small amounts . When they sit on the shelf for years they lose their flavor. Use no more than ?? teaspoon of dried spice (?? of fresh) per pound of meat. Add ground spices to food about 15 minutes before the end of the cooking period. Add whole spices to food at least one hour before the end of the cooking period. Combine herbs with oil or butter, set for 30 minutes to bring out their flavor, then brush on foodswhile they cook, or brush meat with oil and sprinkle herbs one hour before coolcing. Crush dried herbs before adding to foods. Can I use salt substitutes? Caution! If you are told to limit potassium in your diet, be very cautious about using salt substitutes because most of them contain some form of potassium. Check with your doctor or dietitian beforeusing and salt substitute. [place] and create your own seasoning containing those spices that you like. If you would like to become a volunteer and find out more about what's happening where you live, contact your local [facility]. No NSAIDS - Do not take non-steroidal anti-inflammatory medications (NSAIDS) such as Ibuprofen (Advil, Motrin, etc), Naproxen (Aleve, etc), Celecoxib (Celebrex) or Ketoprofen. These common arthritis medications can cause permanent kidney damage or worsen your kidney damage. For mild occasional pain, Acetaminophen (Tylenol, etc) is safe for your kidneys. Blood pressure monitoring education: Monitor home blood pressure values after sitting for 5 minutes with back and arm support. Keep a log. Bring your log and blood pressure cuff to your next visit. documented in this encounter Progress Notes * Arpit Bundy MD - 09/02/2024 1:45 PM EDT Images from the original note were not included. Patient Name: Dk Sepulveda, Male Date of : 1940, 83 y.o. Date: 09/02/24 [] New Patient [x] Established Patient [] New Hospital Follow Up [] Established Hospital Follow Up [] Telemed Visit [] H&P Referring MD: No primary care provider on file. PCP: Sue, MD Juan M Reason For Visit: CKD 4, DM and HTN Dk Sepulveda is a 83 y.o. male seen today regarding stage 4 CKD on backdrop of DM and HTN. Cont to c/o occ R hand/wrist pain and occ gout flartes. Per PT Swelling is controlled and maintained on torsemide 60 bid and zaroxlyn.. Most recent Scr 2.1 01/2024 Denies chest pain or shortness of breath. No blood in the urine or difficulties urinating. Complains of mild arthritic complaints but avoids use of NSAIDs. The following portions of the patient's chart were reviewed in this encounter and updated as appropriate: Allergies Meds Problems Med Hx Surg Hx Fam Hx Constitutional: Negative for chills and fever. Respiratory: Negative for cough and shortness of breath. Cardiovascular: Positive for leg swelling. Negative for chest pain and palpitations. Gastrointestinal: Negative for abdominal pain, nausea and vomiting. Genitourinary: Negative for dysuria, frequency, hematuria and urgency. Full 13 point review of systems unremarkable except as noted above. Past Medical History: Diagnosis Date Atrial fibrillation (HCC) Chronic kidney disease stage 3 (HCC) 08/20/2020 Disease of gallbladder Essential hypertension Hyperlipidemia Presence of cardiac pacemaker Secondary hyperparathyroidism (HCC) Stage 3 chronic kidney disease Stage 3a chronic kidney disease (HCC) 08/20/2020 Stroke (HCC) Type 2 diabetes mellitus (HCC) Past Surgical History: Procedure Laterality Date CARDIAC PACEMAKER PLACEMENT Social History Tobacco Use Smoking status: Former Smokeless tobacco: Never Substance Use Topics Alcohol use: Not Currently Family History Problem Relation Age of Onset Hypertension Sibling Diabetes Sibling Heart disease Sibling Current Outpatient Medications Medication Sig Dispense Refill apixaban (ELIQUIS) 2.5 MG tablet Take 5 mg by mouth twice a day calcitriol (ROCALTROL) 0.25 MCG capsule TAKE 1 CAPSULE BY MOUTH EVERY OTHER DAY IN THE MORNING 45 capsule 2 carvedilol (COREG) 3.125 MG tablet Take 1 tablet by mouth 1 (one) time each day colchicine 0.6 MG tablet Take 0.6 mg by mouth 1 (one) time each day Easy Touch Lancets 33G/Twist misc ergocalciferol 1.25 MG (41533 UT) capsule TAKE 1 CAPSULE BY MOUTH EVERY 14 DAYS 4 capsule 1 ferrous sulfate 325 (65 Fe) MG EC tablet Take 1 tablet (325 mg total) by mouth 1 (one) time each day with breakfast 90 tablet 3 Finerenone (Kerendia) 10 MG tablet Take 10 mg by mouth 1 (one) time each day 90 tablet 3 gabapentin (NEURONTIN) 100 MG capsule Take 1 capsule (100 mg total) by mouth 1 (one) time each day in the evening 90 capsule 0 Insulin Degludec (Tresiba) 100 UNIT/ML solution Inject 22 Units under the skin Lantus SoloStar 100 UNIT/ML injection INJECT 10 UNITS BY SUBCUTANEOUS ROUTE EVERY EVENING Melatonin Maximum Strength 5 MG tablet metOLazone 2.5 MG tablet Take 1 tablet (2.5 mg total) by mouth 3 times weekly: Mon and Monday morning 36 tablet 2 NovoLOG FLEXPEN 100 UNIT/ML injection omeprazole (PriLOSEC) [address] capsule TAKE 1 CAPSULE BY MOUTH EVERY DAY BEFORE A MEAL predniSONE (DELTASONE) 20 MG tablet Take 20 mg by mouth in the morning and 20 mg before bedtime. rosuvastatin (CRESTOR) 10 MG tablet Take 1 tablet by mouth 1 (one) time each day Rybelsus 3 MG tablet TAKE 1 TABLET IN THE MORNING 30 MIN BEFORE ANY FOOD, DRINK OR MEDICATION WITH 4 OZ PLAIN WATER gabapentin (NEURONTIN) 100 MG capsule Take 1 capsule (100 mg total) by mouth 1 (one) time each day in the evening 90 capsule 0 torsemide (DEMADEX) 20 MG tablet Take 3 tablets (60 mg total) by mouth 1 (one) time each day (Patient taking differently: Take 80 mg by mouth 1 (one) time each day) 270 tablet 1 No current facility-administered medications for this visit. Allergies Allergen Reactions Nsaids DUE TO CKD Objective: Vitals: 09/02/24 1344 BP: 120/80 BP Location: Left upper arm Patient Position: Sitting BP Cuff Size: Adult Pulse: 94 SpO2: 99% Weight: 161 lb 9.6 oz (73.3 kg) 118/76 EST GFR Date Value Ref Range Status 11/02/2020 34 ML/MIN/1.73 M2 Final Comment: Creatinine based estimated glomerular filtration rate (eGFR) is calculated using the Chronic Kidney Disease Epidemiology Collaboration (CKD-EPI). The CKD-EPI creatinine equation has not been validated in children (<18 years), women or in some racial or ethnic subgroups other than Caucasians and Americans. Testing performed or reported by [facility], a Service of [facility], [address] [place] [id number] Dasha Verma MD, Account Director eGFR Non- Date Value Ref Range Status 01/19/2021 32 (L) > OR = 60 mL/min/1.73m2 Final Chemistry Lab Units 02/14/24 1708 10/17/23 0805 05/24/23 1614 05/22/23 1200 04/12/23 1028 04/06/23 1439 09/08/22 1711 09/08/22 1027 CREATININE mg/dL 2.10* 2.03* 2.05* 1.78* 2.17* 2.36* < > 2.46* BUN mg/dL 37* 44* 46* 37* 35* 58* < > 62* GLUCOSE mg/dL 207* 145* 212* 163* 205* 179* < > 174* POTASSIUM mmol/L 3.6 3.7 3.6 3.3 3.3 3.2* < > 2.3* SODIUM mmol/L 137 141 137 139 134* 136 < > 140 CO2 mmol/L 26 27 33* 32* 29 30* < > 35* CHLORIDE mmol/L 100 104 94* 96 92* 90* < > 92* ALBUMIN g/dL 3.9 -- -- -- 3.2* 3.6 -- 4.0 BILIRUBIN TOTAL mg/dL 0.9 -- -- -- 1.0 1.8* -- 1.3* AST U/L 18 -- -- -- 24 60* -- 28 ALT U/L 10 -- -- -- 14 20 -- 18 < > = values in this interval not displayed. Bone Mineral Lab Units 02/14/24 1708 10/17/23 0805 05/24/23 1614 05/22/23 1200 04/12/23 1028 04/06/23 1439 09/08/22 1711 09/08/22 1027 CALCIUM mg/dL 9.6 9.0 9.4 9.3 8.8 9.2 < > 9.4 ALK PHOS U/L 81 -- -- -- 81 73 -- 60 < > = values in this interval not displayed. No lab exists for component: SPECGRAV , GLUCOSEUR , BILIRUBINUR , RBCUR , UPROTEIN , LEUKOCYTESUR , NITRITE PLAN: Assessment & Plan 83 Y/O hF STABLE STAGE 4 CKD DIABETIC HYPERTENSIVE PATIENT 1. CKD 4: c/w DN/HTN renal dis based on w/u in past; Bsl Scr 2.0-2.5 2. HTN controlled per PT, goal < 120/80 3. DM: stress BS cpntrol and consider adding SGLT2 inh but hold off for now per PT wishes 4. Metabolic Bone Disease of CKD: cont to track CA, Phos, HCO3, PTH and vit D levels and treat accordingly 5. Hyperlipidemia: gaol LDL < 100 6. H/O Leg weakness/numbness: ques neuropathy; lewg swelling much better; R leg > L d/t prio CVA 7. Anemia: if Hb < 9.5 then IV Fe and procrit; goal is to maintain HB 9.0-11.0 range 8. HypoK: d/t diurtetics; boderline controlled 9. Gout Flare Ideally To Maximize renal protection: -use PATTI-inhibitor ( ЮЛИЯ or ARB) which he cannot tolerate unfortnately -Use SGLT2i but he refuses -Cont Use Kerendia 10 mg which he is taking and will look to incr 20 at next OV -Cont with with strict BP/BS control and avoid NSAIDS -ALSO, cont to stress strict BP/BS control and avoid NSAIDS PLAN: needs repeat labs as ordered; cont current meds including calcitriol 0.25 3x/wk; track renal func and K terra., avoidance of NSAIDs; look to incr Kerendia 20 at next OV; look to add Allpurinol in future to avoid gout flares but he wants to hold off on thois for now as well 1. Stage 3b chronic kidney disease (HCC) 2. Renal osteodystrophy 3. Chronic kidney disease, stage 4 (severe) (HCC) 4. Essential hypertension Orders Placed This Encounter PTH, Intact Renal Function Panel Urinalysis with microscopic Urine Albumin / Creatinine Ratio Urine Culture Protein, Total, Random Urine w/Creatinine (Protein/Creat Ratio) Vitamin D 25 Hydroxy CBC Phosphorus Magnesium Albumin Calcium Return in about 6 months (around 03/05/2025). Arpit Bundy MD Vitals reviewed. Constitutional: No distress. Cardiovascular: Normal rate, regular rhythm and normal heart sounds. He exhibits no edema. Pulmonary/Chest: Effort normal and breath sounds normal. No respiratory distress. Abdominal: Soft. There is no abdominal tenderness. No hernia. Skin: Skin is warm and dry. Psychiatric: He has a normal mood and affect. His behavior is normal. L leg weakness-- has cane ( h/o old CVA) documented in this encounter Plan of Treatment Upcoming Encounters Date Type Department Care Team (Late st Contact Info) Description 03/17/2025 3:00 PM EDT Office Visit [facility] [address] [place], [place] [phone] Arpit Bundy MD [address] [phone] Scheduled Orders Name Type Priority Associated Diagnoses Orde r Schedule PTH, Intact Lab Routine Stage 3b chronic kidney disease (HCC) Renal osteodystrophy Chronic kidney disease, stage 4 (severe) (HCC) Essential hypertension Expected: 09/04/2024, Expires: 10/03/2025 Renal Function Panel Lab Routine Stage 3b chronic kidney disease (HCC) Renal osteodystrophy Chronic kidney disease, stage 4 (severe) (HCC) Essential hypertension Expected: 09/04/2024, Expires: 10/03/2025 Urinalysis with microscopic Lab Routine Stage 3b chronic kidney disease (HCC) Renal osteodystrophy Chronic kidney disease, stage 4 (severe) (HCC) Essential hypertension Expected: 09/04/2024, Expires: 10/03/2025 Urine Albumin / Creatinine Ratio Lab Routine Stage 3b chronic kidney disease (HCC) Renal osteodystrophy Chronic kidney disease, stage 4 (severe) (HCC) Essential hypertension Expected: 09/04/2024, Expires: 10/03/2025 Urine Culture Lab Routine Stage 3b chronic kidney disease (HCC) Renal osteodystrophy Chronic kidney disease, stage 4 (severe) (HCC) Essential hypertension Expected: 09/04/2024, Expires: 10/03/2025 Protein, Total, Random Urine w/Creatinine (Protein/Creat Ratio) Lab Routine Stage 3b chronic kidney disease (HCC) Renal osteodystrophy Chronic kidney disease, stage 4 (severe) (HCC) Essential hypertension Expected: 09/04/2024, Expires: 10/03/2025 Vitamin D 25 Hydroxy Lab Routine Stage 3b chronic kidney disease (HCC) Renal osteodystrophy Chronic kidney disease, stage 4 (severe) (HCC) Essential hypertension Expected: 09/04/2024, Expires: 10/03/2025 CBC Lab Routine Stage 3b chronic kidney disease (HCC) Renal osteodystrophy Chronic kidney disease, stage 4 (severe) (HCC) Essential hypertension Expected: 09/04/2024, Expires: 10/03/2025 Phosphorus Lab Routine Stage 3b chronic kidney disease (HCC) Renal osteodystrophy Chronic kidney disease, stage 4 (severe) (HCC) Essential hypertension Expected: 09/04/2024, Expires: 10/03/2025 Magnesium Lab Routine Stage 3b chronic kidney disease (HCC) Renal osteodystrophy Chronic kidney disease, stage 4 (severe) (HCC) Essential hypertension Expected: 09/04/2024, Expires: 10/03/2025 Albumin Lab Routine Stage 3b chronic kidney disease (HCC) Renal osteodystrophy Chronic kidney disease, stage 4 (severe) (HCC) Essential hypertension Expected: 09/04/2024, Expires: 10/03/2025 Calcium Lab Routine Stage 3b chronic kidney disease (HCC) Renal osteodystrophy Chronic kidney disease, stage 4 (severe) (HCC) Essential hypertension Expected: 09/04/2024, Expires: 10/03/2025 documented as of this encounter Visit Diagnoses Diagnosis Stage 3b chronic kidney disease (HCC)- Primary Renal osteodystrophy Chronic kidney disease, stage 4 (severe) (HCC) Essential hypertension documented in this encounter Care Teams Motor Operator Relationship Specialty Start Date End Date Name, MD Juan M [address] [place] [id number] PCP - General Internal Medicine 09/29/20 documented as of this encounter
--- OUTSIDE RECORDS SUMMARY | 2024-09-04 17:09 | XMS_ITS | Encounter Summary ---
Author Organization [employer] [facility] Address [address] [facility] [address] [place] [address] Care Team Providers Care Agricultural Extension Educator Name Role Phone Name, Juan M BLUE Primary Care Provider [phone] Gita Girard PharmD Unavailable [phone] Encounter Details Date Type Department Care Team (Late st Contact Info) Description 08/16/2022 Abstract [facility] [address] [place] [address] Gita Girard, PharmD [address] [place] [address] Social History Tobacco Use Types Packs/Day Years Used Date Smoking Tobacco: Never Smokeless Tobacco: Never PHQ-2 Answer Date Recorded Patient Health Questionnaire-2 Score 0 07/20/2022 Depression Answer Date Recorded Patient Health Questionnaire-9 Score 0 06/08/2022 Depression Answer Date Recorded Patient Health Questionnaire-2 Score 0 07/20/2022 Sex and Gender Information Value Date Recorded Sex Assigned at Male 04/18/2022 10:14 AM EDT Legal Sex Male 10:14 AM EDT Gender Identity Male 04/18/2022 10:14 AM EDT Sexual Orientation Straight 04/18/2022 10 :14 AM EDT COVID-19 Exposure Response Date Recorded In the last 10 days, have yo u been in contact with someone who was confirmed or suspected to have Coronavirus/COVID-19? No / Unsure 08/18/2022 4:10 PM EST documented as of this encounter Plan of Treatment Upcoming Encounters Date Type Department Care Team (Late st Contact Info) Description 09/10/2024 11:30 AM EDT Medication Management [facility] [address] [place] [address] Gita Girard PharmD [address] [place] [address] 11/04/2024 1:00 PM EDT Office Visit [facility] [address] [place] [address] Cathi Saul documented as of this encounter Goals Goal Patient Goal Type Associated Problems Recent Progress Patient-Stated? Author Patient will adhere to medication regimen General No Gita Girard PharmD Note: Take medications, including insulin, as prescribed. Hemoglobin A1c < 8 Result Component 6.6( 2:50 PM EDT) No Gita Girard PharmD Record your blood sugar as directed Result Component No Gita Girard PharmD Note: Monitor BG via CGM ensuring sensor is scanned at least once every 8 hours. Utilize manual SMBG as needed and as directed. documented as of this encounter Visit Diagnoses Not on filedocumented in this encounter Additional Health Concerns Assessment Noted Time PHQ-9 Depression Total Score: 0 06/08/20 22 9:37 AM EST documented as of this encounter Care Teams Agricultural Extension Educator Relationship Specialty Start Date End Date Name, MD Juan M [address] [place] [id number] PCP - General Family Medicine 01/21/19 Gita Girard PharmD [address] [place] [phone] Pharmacist Internal Medicine 07/14/22 documented as of this encounter
--- OUTSIDE RECORDS SUMMARY | 2024-09-04 17:09 | XMS_ITS | Encounter Summary ---
Author Organization [facility] Address [address], [place] [address] Phone Care Team Providers Care Line Construction Engineer Name Role Phone Anthony Ramirez MD Primary Care Provider Unav ailable Encounter Details Date Type Department Care Team (Late st Contact Info) Description 11/22/2016 Office Visit [facility] [address] [place], [place] [phone] Provider, MD Cindy [address] [place] [phone] Social History Tobacco Use Types Packs/Day Years Used Date Smoking Tobacco: Never Assessed Sex and Gender Information Value Date Recorded Sex Assigned at Not on file Gender Identity Not on file Sexual Orientation Not on file documented as of this encounter Plan of Treatment Not on file documented as of this encounter Visit Diagnoses Not on filedocumented in this encounter Care Teams Line Construction Engineer Relationship Specialty Start Date End Date Anthony Ramirez MD PCP - General 07/06/16 documented as of this encounter
--- OUTSIDE RECORDS SUMMARY | 2024-09-04 17:09 | XMS_ITS | Encounter Summary ---
Author Organization [facility] [employer] Address [address] [facility] [address] [place] [address] Care Team Providers Care Auto Body Technician Name Role Phone Name, Juan M BLUE Primary Care Provider [phone] Gita Girard PharmD Unavailable [phone] Reason for Visit * Reason Comments Med Refill Encounter Details Date Type Department Care Team (Late st Contact Info) Description 07/17/2022 Refill [facility] [address] [place] [address] Name, MD Juan M [address] [place] [address] Social History Tobacco Use Types Packs/Day Years [...] suspected to have Coronavirus/COVID-19? No / Unsure 07/20/2022 10:09 AM EST documented as of this encounter Plan of Treatment Upcoming Encounters Date Type Department Care Team (Late st Contact Info) Description 09/10/2024 11:30 AM EDT Medication Management [facility] [address] [place] [address] Gita Girard PharmD [address] [place] [address] 11/04/2024 1:00 PM EDT Office Visit [facility] [address] [place], [place] [phone] Cathi Saul documented as of this encounter [...] documented as of this encounter Care Teams Auto Body Technician Relationship Specialty Start Date End Date Name, [place] [address] PCP - General Family Medicine 01/21/19 Gita Girard PharmD [address] [place], [place] [phone] Pharmacist Internal Medicine 07/14/22 documented as of this encounter
--- OUTSIDE RECORDS SUMMARY | 2024-09-04 17:09 | XMS_ITS | Encounter Summary ---
Author Organization [facility] [employer] Address [address], [place] [address] Phone Care Team Providers Care Water Quality Tester Name Role Phone Anthony Ramirez MD Primary Care Provider Unav ailable Encounter Details Date Type Department Care Team (Late st Contact Info) Description 09/19/2016 Office Visit [facility] [address] [place], [place] [phone] Provider, MD Cindy [address] [place] [id number] Social History Tobacco Use Types Packs/Day Years Used Date Smoking Tobacco: Never Assessed Sex and Gender Information Value Date Recorded Sex Assigned at Not on file Gender Identity Not on file Sexual Orientation Not on file documented as of this encounter Plan of Treatment Not on file documented as of this encounter Visit Diagnoses Not on filedocumented in this encounter Care Teams Water Quality Tester Relationship Specialty Start Date End Date Anthony Ramirez MD PCP - General 07/06/16 documented as of this encounter
--- OUTSIDE RECORDS SUMMARY | 2024-09-04 17:09 | XMS_ITS | Encounter Summary ---
Author Organization [facility] [employer] Address [address] [address] Phone Care Team Providers Care It Application Architect Name Role Phone Anthony Ramirez MD Primary Care Provider Unav ailable Encounter Details Date Type Department Care Team (Late st Contact Info) Description 11/22/2016 [facility] Visit [facility] [address] [place], [place] [phone] Provider, MD Cindy [address] [place] [id number] Social History Tobacco Use Types Packs/Day Years Used Date Smoking Tobacco: Never Assessed Sex and Gender Information Value Date Recorded Sex Assigned at Not on file Gender Identity Not on file Sexual Orientation Not on file documented as of this encounter Plan of Treatment Not on file documented as of this encounter Visit Diagnoses Not on filedocumented in this encounter Care Teams It Application Architect Relationship Specialty Start Date End Date Anthony Ramirez MD PCP - General 07/06/16 documented as of this encounter
--- OUTSIDE RECORDS SUMMARY | 2024-09-04 17:09 | XMS_ITS | Clinical Summary ---
Author Organization [employer] Address [address] [place] [address] Care Team Providers Care Unemployment Benefits Claims Taker Name Role Phone Name, Juan M BLUE Primary Care Provider [phone] Gita Girard PharmD Unavailable [phone] Allergies Active Allergy Reactions Criticality Noted Date Comments Ibuprofen 06/26/2024 Other Reaction(s): Not available Nsaids 09/02/2022 Other reaction(s): n/a DUE TO CKD Other Nausea 01/06/2024 Medications ferrous sulfate 325 (65 Fe) MG EC tablet Take 1 tablet by mouth 1 (one) time each day. 022 Active calcitriol (Rocaltrol) 0.25 MCG capsule TAKE 1 CAPSULE (0.25 MCG TOTAL) BY MOUTH EVERY OTHER DAY 022 Active Eliquis 2.5 MG tablet Take 1 tablet by mouth 2 times daily. 022 Active Continuous Blood Gluc Director Of Corporate Marketing (FreeStyle Elizabeth 2 [place]) deviceIndication s:Diabetes mellitus type 2 with complications ([facility]/HCC) USE DIRECTED 1 each 023 Active fluticasone (Flonase) 50 MCG/ACT nasal spray 023 Active glucose blood (FreeStyle Precision David Test) test stripIndications :Diabetes mellitus type 2 with complications ([facility]) Use to test blood sugar up to 3 times daily, as directed 100 each 11 024 Active lidocaine (Lidoderm) 5 % patchIndications :Right-sided low back pain without sciatica, unspecified chronicity APPLY 1 PATCH TOPICALLY TO SKIN IN THE MORNING. LEAVE ON FOR 12 HOURS AND OFF FOR 12 HOURS DIRECTED 30 patch 2 024 Active amoxicillin (Amoxil) 500 MG capsule Take 4 capsules of amoxicillin 500 mg 1 hour prior dental procedure 12 capsule 024 Active sildenafil (Viagra) 50 MG tablet Take 1 tablet (50 mg) by mouth if needed each day for erectile dysfunction. 10 tablet 024 Active glucagon (Baqsimi Two Pack) 3 MG/DOSE nasal powderIndication s: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) Administer 3 mg via 1 device into the nostril for hypoglycemia with loss of consciousness. If no response after 15 minutes administer an additional dose via 2nd device into other nostril. 2 each 1 024 Active glucose 4 g chewable tabletIndication s: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) Chew 4 tablets (16 g) if needed for low blood sugar. (BG < 70 mg/dL). Check BG again after 15 minutes and repeat dose if needed. 20 tablet 5 024 2024 Active insulin aspart (NovoLOG FLEXPEN) 100 UNIT/ML penIndications:D iabetes mellitus type 2 with complications (CMS/HCC) Inject 10 units subQ with lunch & dinner only. 15 mL 5 024 Active Pentips Generic Pen [place] 32G X 4 MM miscIndications: 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) USE DIRECTED FOUR TIMES DAILY 100 each 11 024 Active omeprazole (PriLOSEC) [address] capsuleIndicatio ns:Chronic cough,Hypertensi on, unspecified type,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),Right- sided low back pain without sciatica, unspecified chronicity,Insom andrew, unspecified type TAKE 1 CAPSULE BY MOUTH EVERY MORNING WITH BREAKFAST 90 capsule 025 Active Alcohol Swabs (Alcohol Prep) 70 % padsIndications: 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) USE FOUR TIMES DAILY 100 each 025 Active amLODIPine (Norvasc) 2.5 MG tabletIndication s:Hypertension, unspecified type TAKE 1 TABLET BY MOUTH EVERY MORNING 90 tablet 1 025 Active rosuvastatin (Crestor) 10 MG tabletIndication s:Hypertension, unspecified type,Chronic cough,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),Right- sided low back pain without sciatica, unspecified chronicity,Insom andrew, unspecified type TAKE 1 TABLET BY MOUTH EVERY EVENING 90 tablet 1 025 Active Acetaminophen Extra Strength 500 MG tablet TAKE 1 TABLET BY MOUTH EVERY 8 HOURS NEEDED FOR MILD PAIN 90 tablet 025 Active spironolactone (Aldactone) 25 MG tablet TAKE 1/2 TABLET BY MOUTH EVERY MORNING 15 tablet 025 Active torsemide (Demadex) 20 MG tablet TAKE 4 TABLETS BY MOUTH EVERY MORNING 120 tablet 1 025 Active carvedilol (Coreg) 3.125 MG tabletIndication s:Chronic cough,Hypertensi on, unspecified type,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),Right- sided low back pain without sciatica, unspecified chronicity,Insom andrew, unspecified type TAKE 1 TABLET BY MOUTH TWICE DAILY IN THE MORNING AND IN THE EVENING WITH FOOD 180 tablet 025 Active Continuous Glucose Sensor (FreeStyle Elizabeth 2 Sensor) miscIndications: 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) USE DIRECTED CHANGE EVERY 14 DAYS 2 each 025 Active TRUEplus Lancets 33G miscIndications: Type 2 diabetes mellitus with unspecified complications (CMS/HCC) TEST BLOOD SUGAR FOUR TIMES DAILY DIRECTED 100 each 025 Active insulin degludec (Tresiba FlexTouch) 100 UNIT/ML injectionIndicat ions: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 15 mL 2 025 Active Continuous Blood Gluc Sensor (FreeStyle Elizabeth 2 Sensor) miscIndications: 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) APPLY 1 SENSOR AND CHANGE EVERY 14 DAYS DIRECTED 2 each 024 2024 Discontinued TRUEplus Lancets 33G miscIndications: Type 2 diabetes mellitus with unspecified complications (CMS/HCC) USE TO TEST BLOOD SUGAR FOUR TIMES DAILY DIRECTED 100 each 024 2024 Discontinued carvedilol (Coreg) 3.125 MG tabletIndication s:Chronic cough,Hypertensi on, unspecified type,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),Right- sided low back pain without sciatica, unspecified chronicity,Insom andrew, unspecified type TAKE 1 TABLET BY MOUTH TWICE DAILY IN THE MORNING AND IN THE EVENING WITH FOOD 180 tablet 1 024 2024 Discontinued insulin degludec (Tresiba FlexTouch) 100 UNIT/ML injectionIndicat ions:Diabetes mellitus type 2 with complications (CMS/[facility]) Inject 14 Units under the skin at bedtime. 15 mL 2 024 2024 Discontinued(R eorder (will not trigger notification to Pharmacy)) acetaminophen (Tylenol Extra Strength) 500 MG tablet Take 1 tablet (500 mg) by mouth every 8 (eight) hours if needed for mild pain. 90 tablet 024 2024 Discontinued spironolactone (Aldactone) 25 MG tablet TAKE 1/2 TABLET BY MOUTH EVERY MORNING 15 tablet 1 024 2024 Discontinued torsemide (Demadex) 20 MG tablet TAKE 4 TABLETS BY MOUTH EVERY MORNING 120 tablet 1 025 2024 Discontinued Active Problems Problem Noted Date Diagnosed Date Abdominal lymphadenopathy 09/04/2024 Dental attrition, excessive, extending into pulp 06/26/2024 Open fracture of tooth 05/24/2024 Swelling of right wrist 02/14/2024 Assessment & Plan (02/14/2024 4:26 PM EDT): -concern for gout, infective arthritis, or lyme disease -considered imaging and treating prophylactically for gout and septic arthritis, however given his diabetic state and compromised kidney function, discussed with him the benefits of going to the hospital for joint aspiration to obtain a specific diagnosis. He is agreeable with this -[place] [facility] Acute worsening of stage 3 chronic kidney diseas e 02/06/2024 Chronic right heart failure 02/06/2024 CKD (chronic kidney disease) 02/06/2024 Leg edema 02/06/2024 Lumbar disc disease 02/06/2024 Murmur 02/06/2024 Thymoma 02/06/2024 Tricuspid regurgitation 02/06/2024 Partially edentulous mandible 2023 Loss of teeth, acquired 09/05/2023 Recurrent falls 04/06/2023 Assessment & Plan (04/06/2023 8:15 PM EDT): pt with hx of subdural hematoma on AC for AF ,having recurrent falls and feeling more sleepy lately ,here with apparent neuro exam at baseline CV and resp exam is normal . Pt does not appear dehydrated nor with fluid overload Here today Urine dipstick only small blood rest neg including ketones, LE,Nitrates are neg CBG today is 199 ,hb1AC 7.5<---6.5 1 week ago had episodes of low CBGs in 60s and symptomatic Cr 08/2022 K 3.3, CR 2.46 GFR 25 ,Hb 10.1, platelet 155 Possible symptoms are multifactiorial possible from hypoglycemic events , less likely UTI, hx of subural hematoma and to r/o worsening CKD Given acute symptoms discussed w pt and daughter about recommendation to go to ER for faster evaluation specially for head imaging but pt refusing and he express understandings of risk -check today TSH,CBC,chem --will call pt w results -CT head w/o contrast STAT--requested MA to assist scheduling image apt -decrease treiba to 22 u HS from 26 u and gave SS of lispro for now ( CBGS 150 to 200 inj 2 u , 251 to 300 4u, 301-350 6u , 351to 400 u 8 u ( if not control to increase 2 u by each scale) -pt and daughter expressed understanding -change done from - insulin lispro 10 u am,8 luncch,12 dinner -alarm signs and symptoms discussed w pt and daughter in case needs to go to ED -advised to keep apt w PCP already schedule in 6 days to monitor symptoms -requested today to nurse staff to start process for VNA Subconjunctival hemorrhage of left eye 3 Assessment & Plan (01/02/2023 12:13 PM EDT): Allergic? HTN? Reassurance since there is no abn vision. Optometry clinic will see him this week to ro retinal or other hemorrhage given CV risk factors Fu with regular eye clinic on March. Osteoarthritis of right knee 12/15/2022 Hematoma 12/15/2022 Pain in right wrist 11/24/2022 Overview (05/24/2023): Last Assessment & Plan: Pt w 1 week of ongoing right wrist/hand pain w no hx of trauma Pt has hx of gout -XR of right hand/wrist done here today no acute osseous injury in right hand ,there is mild and mod osteoarthritic deformity at multiple interphalangeal joints , wrist XR: mild osteoarthritis of the distal radioulnar joint and 1st carpometacarpal joint---I tried calling pt with image result but not able to reach --left voice message explaining findings -will check CRP,ESR,uric acid and RF to f result w PCP -advised tylenol 500 up to 1 gr Q 12 h if needed and try w lidocaine cream -has apt scheduled w PCP x next month Assessment & Plan (11/24/2022 6:18 PM EDT): Pt w 1 week of ongoing right wrist/hand pain w no hx of trauma Pt has hx of gout -XR of right hand/wrist done here today no acute osseous injury in right hand ,there is mild and mod osteoarthritic deformity at multiple interphalangeal joints , wrist XR: mild osteoarthritis of the distal radioulnar joint and 1st carpometacarpal joint---I tried calling pt with image result but not able to reach --left voice message explaining findings -will check CRP,ESR,uric acid and RF to f result w PCP -advised tylenol 500 up to 1 gr Q 12 h if needed and try w lidocaine cream -has apt scheduled w PCP x next month Presence of normal functioning cardiac pacemaker 05/26/2022 Chronic gout without tophus 05/26/2022 Constipation 05/26/2022 Coronary arteriosclerosis 05/26/2022 History of severe acute resp iratory syndrome coronavirus 2 (SARS-CoV-2) disease 05/26/2022 Insomnia 05/26/2022 Low back pain 05/26/2022 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 Pericardial effusion 05/26/2022 Stented coronary artery 05/26/2022 Edema 05/26/2022 Varicose veins of lower extremity 05/26/2022 Venous intermittent claudication 05/26/2022 History of cerebrovascular accident with residua l deficit 05/26/2022 History of craniotomy 05/26/2022 History of subdural hematoma 05/26/2022 Renal osteodystrophy 08/20/2020 Type 2 diabetes mellitus with hyperglycemia 07/21 Tinnitus 07/18/2013 Varicocele 04/24/2013 Anemia 04/20/2012 Persistent atrial fibrillation 04/20/2012 Benign prostatic hyperplasia 04/20/2012 Biliary calculus 04/20/2012 Stage 3b chronic kidney disease 04/20/2012 Chronic neck pain 04/20/2012 Essential hypertension 04/20/2012 Gastroesophageal reflux disease 04/20/2012 Hyperlipidemia 04/20/2012 Resolved Problems Problem Noted Date Diagnosed Date Resolved Date Cough 12/15/2022 12/15/2022 Hemoptysis 12/15/2022 12/15/2022 Pleuritic chest pain 12/15/2022 023 Preop cardiovascular exam 12/15/2022 Diabetes mellitus 04/20/2012 12/15/2022 Assessment & Plan (11/24/2022 12:54 PM EDT): Pt on rapid,basal insuline and recently started on low dose trulicity Having CBgs in fasting bw 80 to 100s but sometimes feeling weaker when CBgs are close to 80 -advised pt to continue meds but to decrease basal insulin to 24 from 28 u HS and rest the same -discussed about signs and symptoms of hypoglycemia -advised pt to bring CBgs in fasting and prior meals to his PCP -schedule apt x 01/13/2023 To f up Encounters Date Type Department Care Team Description 09/04/2024 2:30 PM EDT Office Visit [facility] [address] [place] [phone] Name, MD Juan M 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) (Primary Dx); Hypoglycemia due to type 2 diabetes mellitus (CMS/HCC); Stage 3b chronic kidney disease (CMS/HCC); Gallstones; Abdominal lymphadenopathy; Cirrhosis of liver without ascites, unspecified hepatic cirrhosis type (CMS/HCC) 09/04/2024 Travel 09/03/2024 Telephone [facility] [address] [place] [phone] Santosh Alexis MA chart prep 08/29/2024 Refill [facility] [address] [place] [address] Juan M Rogers MD Diabetes mellitus type 2 with complications ([facility]/HCC); Type 2 diabetes mellitus with unspecified complications (CMS/HCC) 08/20/2024 Refill [facility] [address] [place] [phone] Juan M Rogers MD Chronic cough; Hypertension, unspecified type; 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); Right-sided low back pain without sciatica, unspecified chronicity; Insomnia, unspecified type 08/17/2024 Refill [facility] [address] [place] [phone] Juan M Rogers MD 08/16/2024 Refill [facility] [address] [place], [place] [phone] Juan M Rogers MD 08/01/2024 Patient Outreach [facility] [address], [place] [phone] Juan M Rogers MD 07/26/2024 Orders Only [facility] External Provider, [facility] 07/22/2024 Refill [facility] [address] [place] [phone] Juan M Rogers MD Hypertension, unspecified type; Chronic cough; Diabetes mellitus type 2 with complications ([facility]); Right-sided low back pain without sciatica, unspecified chronicity; Insomnia, unspecified type 07/14/2024 Refill [facility] [address] [place] [phone] Juan M Rogers MD Diabetes mellitus type 2 with complications ([facility]/HCC) 06/26/2024 1:30 PM EST Office Visit [facility] [address] [place] [phone] Kenny Hopson DDS Dental attrition, excessive, extending into pulp (Primary Dx) 06/25/2024 Refill [facility] [address] [place] [phone] Juan M Rogers MD Chronic cough; Hypertension, unspecified type; 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); Right-sided low back pain without sciatica, unspecified chronicity; Insomnia, unspecified type 06/21/2024 Telephone [facility] [address] [place] [address] Name, MD Juan M Nurse Triage 06/21/2024 Refill [facility] [address], [place] [phone] Name, MD Juan M 06/16/2024 Refill [facility] [address], [place] [phone] Name, MD Juan M Diabetes mellitus type 2 with complications ([facility]) from Last 3 Months Immunizations Name Administration Dates Next Due Hep B, adult 10/25/2023(Deferred: Patient nahid tubbs) Influenza High-dose Quadriva lent Preservative Free 04/12/2023 Influenza injectable quadriv alent preservative free 03/07/2022 Influenza, IIV3, injectable 11/30/2015, 4,03/19/2009 Influenza, Split (incl. nikolay fied surface antigen) 02/23/2015 Influenza, seasonal, injecta ble, preservative free 09/04/2024 Moderna Covid-19 Vaccine 12+ 04/28/2021,09/05/19 21,08/07/2020 Pneumococcal Conjugate PCV 13 07/29/2014 Pneumococcal Polysaccharide PPSV23 08/12/2021,,12/04/2000 RSV Bivalent 12/18/2023 TD (adult), 2 Lf tetanus tox oid, preservative free, adsorbed 12/19/1994 Tdap 08/12/2021 Zoster, Recombinant 10/25/2023(Deferred: Patient Refused),09/01/2022 Zoster, live 07/29/2014 Social History Tobacco Use Types Packs/Day Years Used Date Smoking Tobacco: Never Passive Smoke Exposure: Never Smokeless Tobacco: Never Tobacco Cessation:Counseling Given: Not Answered Alcohol Use Standard Drinks/Week Comments Not Currently 0 (1 standard drink = 0.6 oz pur e alcohol) PHQ-2 Answer Date Recorded Patient Health Questionnaire-2 Score 0 07/20/2022 Alcohol Answer Date Recorded Frequency of Alcohol Consumption Not on file 06/09/2023 Average Number of Drinks Not on file 023 Frequency of Binge Drinking Not on file 05/20 Score 0 06/09/2023 Depression Answer Date Recorded Patient Health Questionnaire-9 Score 0 06/08/2022 Housing Stability Answer Date Recorded What is your housing situation today? I have lucas quesada 10/13/[address] you li ve. Do you have problems with any of the following? None of the above 10/13/2023 Food Insecurity Answer Date Recorded Within the past 12 months, y ou worried that your food would run out before you got money to buy more: Never True 10/13/2023 Within the past 12 months,th e food you bought just didn't last and you didn't have enough money to get more: Never True Transportation Answer Date Recorded In the past 12 months, has l ack of transportation kept you from medical appts, meetings, work or from getting things needed for daily living? No 10/13/2023 Utilities Answer Date Recorded In the past 12 months, has t he electric, gas, oil or water company threatened to shut off services in your home? No 10/13/2023 Depression Answer Date Recorded Patient Health Questionnaire-2 Score 0 06/09/2023 Internet Access Answer Date Recorded Internet Access Q1 Yes 09/04/2024 Internet Access Q2 Not on file 09/04/2024 Sex and Gender Information Value Date Recorded Sex Assigned at Male 04/18/2022 10:14 AM EDT Legal Sex Male 10:14 AM EDT Gender Identity Male 04/18/2022 10:14 AM EDT Sexual Orientation Straight 04/18/2022 10 :14 AM EDT Last Filed Vital Signs Vital Sign Reading Time Taken Comments Blood Pressure 148/78 09/04/2024 2:24 PM EDT Pulse 85 09/04/2024 2:24 PM EDT Temperature 36.7 ??C (98.1 ??F) 09/04/2024 2:24 PM ED T Respiratory Rate 18 09/04/2024 2:24 PM EDT Oxygen Saturation 98% 09/04/2024 2:24 PM EDT Inhaled Oxygen Concentration - - Weight 73.7 kg (162 lb 6.4 oz) 09/04/2024 2:24 P M EDT Height 170.2 cm (5' 7 ) 09/04/2024 2:24 PM EDT Body Mass Index 25.44 09/04/2024 2:24 PM EDT Plan of Treatment Upcoming Encounters Date Type Department Care Team (Late st Contact Info) Description 09/10/2024 11:30 AM EDT Medication Management [facility] [address] [place] [address] Gita Girard, PharmD [address] [place], [place] [phone] 11/04/2024 1:00 PM EDT Office Visit [facility] [address], [place] [phone] Cathi Saul Health Maintenance Due Date Last Done Comments Alcohol/Substance Use Screening 1952 Hepatitis A Vaccines (1 of 2 - Risk 2-dose series) 1960 Hepatitis B Vaccines (1 of 3 - Risk 3-dose series) 2001 Zoster Vaccines (3 of 3) 10/27/2022 09/01/2022, 07/20 Diabetes: Urine Protein Screening 04/18/2023 04/18/2022, 04/18/2022, 10/18/2021, Additional history exists Lipid Panel 09/17/2023 09/16/2022, 02/10/2020 COVID-19 Vaccine ( season) 2024 04/28/2021, 09/04/2020, 08/07/2020 Depression Screening 06/09/2024 06/09/2023, 06/08/20 22 Dental Oral Exam 10/30/2024 05/01/2024, , 01/22/2016, Additional history exists Dental Prophylaxis 10/30/2024 05/01/2024, 0 01/22/2016, 05/26/2015, Additional history exists Diabetes: Hemoglobin A1C 03/07/2025 025, 04/24/2024, 01/25/2024, Additional history exists Dental X-Ray: Bitewings 04/06/2025 04/05/2024, 12/12 Diabetes: Foot Exam 09/04/2025 09/04/2024, 09/04/2024, 09/04/2024, Additional history exists SDOH Screening 09/04/2025 09/04/2024 Tobacco Screening 09/04/2025 09/04/2024 Eye Exam 02/28/2026 02/29/2024, 02/17, 02/29/2024, Additional history exists Dental X-Ray: Full Mouth 09/05/2026 024, 03/01/2016, 12/13/2011 DTaP/Tdap/Td Vaccines (2 - Td or Tdap) 08/12/2031 08/12/2021, 12/19/1994 Pneumococcal Vaccine: 50+ Years Completed 08/12/2021, 03/23/2015, 07/29/2014, Additional history exists RSV Patients and Patients Aged 60 years or older Completed 12/18/2023 Influenza Vaccine Completed 09/04/2024, , 03/07/2022, Additional history exists HIB Vaccines Aged Out No longer eligi ble based on patient's age to complete this topic HPV Vaccines Aged Out No longer eligi ble based on patient's age to complete this topic IPV Vaccines Aged Out No longer eligi ble based on patient's age to complete this topic Meningococcal Vaccine Aged Out No albaro geremias eligible based on patient's age to complete this topic RSV under 20 months Aged Out No longe r eligible based on patient's age to complete this topic Rotavirus Vaccines Aged Out No longer eligible based on patient's age to complete this topic Goals Goal Patient Goal Type Associated Problems Recent Progress Patient-Stated? Author Patient will adhere to medication regimen General No Gita Girard, PharmD Note: Take medications, including insulin, as prescribed. Hemoglobin A1c < 8 Result Component 6.6( 2:50 PM EDT) No Gita Girard, PharmD Record your blood sugar as directed Result Component No Gita Girard, PharmD Note: Monitor BG via CGM ensuring sensor is scanned at least once every 8 hours. Utilize manual SMBG as needed and as directed. Procedures Procedure Name Priority Date/Time Associated Diagnosis Comments CBC WITH AUTO DIFFERENTIAL Routine 09/04/2024 3:07 PM EDT Abdominal lymphadenopathy POCT GLYCATED HEMOGLOBIN, TOTAL Routine 09/04/2024 2:50 PM EDT 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) POCT GLUCOSE Routine 09/04/2024 2:37 PM EDT 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) CT ABDOMEN PELVIS WO CONTRAST Routine 07/26/2024 2:37 PM EST 7 ADD TOOTH TO EXISTING PARTIAL DENTURE Routine 06/26/2024 1:30 PM EST CASE PRESENTATION, DETAILED AND EXTENSIVE TREATMENT PLANNING Routine 06/26/2024 1:30 PM EST 7 EXTRACTION, ERUPTED TOOTH OR EXPOSED ROOT (ELEVATION/FORCEPS REMOVAL) Routine 06/26/2024 1:30 PM EST PROPHYLAXIS - ADULT Routine 05/01/2024 2 :00 PM EST Dental calculus Dental plaque Tartar deposits on teeth PERIODIC ORAL EVALUATION - ESTABLISHED PATIENT Routine 05/01/2024 2:00 PM EST BITEWINGS - 4 RADIOGRAPHIC IMAGES Routine 04/05/2024 3:00 PM EDT PANORAMIC RADIOGRAPHIC IMAGE Routine 09/05/2023 11:00 AM EDT LIPID PANEL, STANDARD Routine 09/16/2022 9:26 AM EDT SHELLEY HISTORICAL MICROALBUMIN/CREATIN INE RATIO, RANDOM URINE Routine 04/18/2022 8:43 AM EDT from Last 3 Months or Most Recently Relevant to Health Maintenance Results * (ABNORMAL) CBC auto differential (09/04/2024 3:07 PM EDT) White Blood Count 6.4 4.8 - 10.8 X10*3/uL [facility] Red Blood Count 3.58(L) 4.60 - 5.80 X10*6/uL [facility] Hemoglobin 10.7(L) 14.0 - 18.0 g/dl [facility] Hematocrit 31.7(L) 42.0 - 52.0 % [facility] Mean Corpuscular Volume 88.5 80.0 - 98.0 fL [facility] Mean Corpuscular Hemoglobin 29.9 27.0 - 33.0 pg [facility] Mean Corpuscular HGB Conc 33.8 31.0 - 36.0 g/dl [facility] Red Cell Distribution Width 15.3 11.0 - 16.0 % [facility] Platelet Count 129(L) 160 - 400 X10*3/uL [facility] Mean Platelet Volume 9.8 9.4 - 12.4 fL [facility] Neutrophils Percent Auto 63.3 45 - 73 % [facility] Imm Gran Pct Auto 0.5(H) 0.0 - 0.4 % [facility] Lymphocytes Percent Auto 25.6 20 - 40 % [facility] Monocytes Percent Auto 8.1 2 - 11 % [facility] Eosinophils Percent Auto 2.3 0 - 4 % [facility] Basophils Percent Auto 0.2 0 - 2 % [facility] NRBC Pct Auto 0.0 0.0 - 0.2 /100WBC [facility] Neutrophils Absolute Auto 4.1 2.0 - 8.3 x10*3/uL [facility] Imm Gran Abs Auto 0.03 0.00 - 0.03 X10*3/uL [facility] Lymphocytes Absolute Auto 1.7 1.2 - 4.9 X10*3/uL [facility] Monocytes Absolute Auto 0.5 0.1 - 1.2 X10*3/uL [facility] Eosinophils Absolute Auto 0.2 0.0 - 0.4 X10*3/uL [facility] Basophils Absolute Auto 0.0 0.0 - 0.2 X10*3/uL [facility] NRBC Abs Auto 0.000 0.0 - 0.012 X10*3/uL [facility] Blood Venous blood specimen / Unknown 09/04/2024 3:07 PM EDT 09/04/2024 4:08 PM EDT us Juan M Name LAB BLOOD ORDERABLES Final Resul t [facility] [address] [place] [address] [phone] * (ABNORMAL) POCT HGB A1C (09/04/2024 2:50 PM EDT) [facility] Hemoglobin A1C 6.6(A) 4.0 - 6.0 % QC Media Lot # [id number] Lot# Expiration Date [id number] Blood 09/04/2024 2:50 PM EDT Juan M Name POINT OF CARE TEST ENTER/EDIT OR DERABLES Final Result * (ABNORMAL) POCT Glucose (09/04/2024 2:37 PM EDT) [facility] Glucose Blood, POC 214(A) 60 - 200 mg/dL QC Media Lot # [id number] Lot# Expiration Date [id number] Blood Capillary blood specimen / Unknown 09/04/2024 2:37 PM EDT Juan M Name POINT OF CARE TEST ENTER/EDIT OR DERABLES Final Result * CT Abdomen Pelvis w/o Contrast (07/26/2024 2:37 PM EST) Anatomical Region Laterality Modality Body, Pelvis, Abdomen Computed T omography 07/26/2024 2:37 PM EST Narrative 07/26/2024 3:37 PM EST ? [facility] ?[address] [facility] ?[place] [address] ? CT Scan Report ? Signed ? Patient: Derick,Dk ?MR#: [id number] ?? [id number] ? : 1940 ?Acct:[id number] ? Age/Sex: 83 / M ?ADM Date: 02/07/25 ? Loc: HO.CT ? Attending Dr: Ronni Dodge MD ? Ordering Physician: Ronni Dodge MD ?? Date of Service: 07/26/24 ?? Procedure(s): CT abdomen pelvis wo IV con ?? Accession Number(s): [id number] ? cc: Ronni Dodge MD; Name,Juan M BLUE ? Report Number: ?? [id number]: Total DLP = ??351.00 mGy-cm ?? EXAMINATION: ?? CT ABDOMEN AND PELVIS WITHOUT CONTRAST ? CLINICAL INFORMATION: ?? Contusion abdominal wall. ? COMPARISON: ?? November 19, 2013. ? TECHNIQUE: ?? Multidetector volumetric imaging was performed from the superior aspect ?? of the liver through the pubic symphysis. Sagittal and coronal ?? reformatted images were obtained on the technologist's workstation. ? This CT examination was performed using dose optimization techniques as ?? appropriate, variously including the following: ?? *Automated exposure control ?? *Adjustment of mA and/or kV according to patient size (this includes ?? techniques or standardized protocols for targeted exams where dose is ?? matched to indication/reason for exam; i.e. extremities or head) ?? *Use of iterative reconstruction technique ? DLP: 351 mGy centimeter. ? FINDINGS: ? Inadequate evaluation of the intra-abdominal organs and vascular ?? structures due to lack of IV contrast. ? LUNG BASES: No acute airspace disease in the included lungs. ?? Pericardial effusion, moderate volume. Elevated leads in the right ?? lateral ventricle. ? LIVER, GALLBLADDER, AND BILIARY TREE: ?? Nodular surface of the liver. Liver measures 14 cm. No intrahepatic ?? biliary ductal dilatation. Probable hypodensity in the dome of the left ?? hepatic lobe. ?? Cholelithiasis. No pericholecystic fluid collection or gallbladder wall ?? thickening. No extrahepatic biliary ductal dilatation. ? PANCREAS: Edema pattern in the peripancreatic head and elisabeth ?? hepatic/periduodenal bulb. No fluid collection. No main pancreatic ?? ductal dilatation. ? SPLEEN: 14 cm. ? ADRENAL GLANDS: No nodular lesions. ? KIDNEYS AND URETERS: ?? No hydronephrosis. ?? No nephrolithiasis. ? BLADDER: Fluid-filled. ? GASTROINTESTINAL TRACT: ? Appendix is normal. ?? Scattered diverticula in the rectosigmoid colon and descending colon. ?? Abundant stool. ?? No intestinal obstruction pattern. ?? No ascites. ?? No pneumatosis intestinalis. ?? No pneumoperitoneum. ? ABDOMINAL WALL: No gross hernia. No gross soft tissue ?? hematoma/contusion's. ? LYMPH NODES: Lymphadenopathy, retroperitoneal/periaortic and periiliac, ?? the largest measures 1.5 cm. ? VASCULAR: ?? Throughout the abdominal aorta wall the origin of the main renal ?? arteries mesenteric arteries and the iliac arteries. No gross aneurysm. ? PELVIC VISCERA: No evaluated. ? OSSEOUS STRUCTURES: Multilevel thoracolumbar spondylosis. Grade 1 ?? anterolisthesis L4-5. Grade 1 retrolisthesis L5-S1. Osteopenia versus ?? osteoporosis. No acute fracture. ? CT/CT abdomen pelvis wo IV con ?? IMPRESSION: ?? Lymphadenopathy, retroperitoneum and peripancreatic. ?? Lymphoproliferative disorder among other etiologies. ?? Liver disease/cirrhosis. ?? Splenomegaly. ?? Cholelithiasis. ?? Diverticular disease. ?? Nonspecific edema pattern the elisabeth hepatic periduodenal peripancreatic ?? region. ? Fleischner guidelines were followed. ? Electronically signed by: ??Uri Branch MD ??07/26/2024 03:34 PM ?? EST RP ? Dictated By: ?Uri Dowling MD ? Signed By: ?<Electronically signed by Uri Aggarwal MD in OV> ? 07/26/24 1534 ? DD/ 1437 ? TD/TT: 07/26/24 1450 ? Psychiatrist: ? Procedure Note Nancy, Image - 07/26/[address] [address] [address] Scan Report Signed Patient: Karlo Sepulveda#: [id number] : 2Acct:[id number] Age/Sex: 83 / MADM Date: 07/26/24 Loc: HO.CT Attending Dr: Ronni Dodge MD Ordering Physician: Rnoni Dodge MD Date of Service: 07/26/24 Procedure(s): CT abdomen pelvis wo IV con Accession Number(s): [id number] cc: Ronni Dodge MD; Name,Juan M Report Number: [id number]: Total DLP = 351.00 mGy-cm EXAMINATION: CT ABDOMEN AND PELVIS WITHOUT CONTRAST CLINICAL INFORMATION: Contusion abdominal wall. COMPARISON: November 19, 2013. TECHNIQUE: Multidetector volumetric imaging was performed from the superior aspect of the liver through the pubic symphysis. Sagittal and coronal reformatted images were obtained on the technologist's workstation. This CT examination was performed using dose optimization techniques as appropriate, variously including the following: *Automated exposure control *Adjustment of mA and/or kV according to patient size (this includes techniques or standardized protocols for targeted exams where dose is matched to indication/reason for exam; i.e. extremities or head) *Use of iterative reconstruction technique DLP: 351 mGy centimeter. FINDINGS: Inadequate evaluation of the intra-abdominal organs and vascular structures due to lack of IV contrast. LUNG BASES: No acute airspace disease in the included lungs. Pericardial effusion, moderate volume. Elevated leads in the right lateral ventricle. LIVER, GALLBLADDER, AND BILIARY TREE: Nodular surface of the liver. Liver measures 14 cm. No intrahepatic biliary ductal dilatation. Probable hypodensity in the dome of the left hepatic lobe. Cholelithiasis. No pericholecystic fluid collection or gallbladder wall thickening. No extrahepatic biliary ductal dilatation. PANCREAS: Edema pattern in the peripancreatic head and elisabeth hepatic/periduodenal bulb. No fluid collection. No main pancreatic ductal dilatation. SPLEEN: 14 cm. ADRENAL GLANDS: No nodular lesions. KIDNEYS AND URETERS: No hydronephrosis. No nephrolithiasis. BLADDER: Fluid-filled. GASTROINTESTINAL TRACT: Appendix is normal. Scattered diverticula in the rectosigmoid colon and descending colon. Abundant stool. No intestinal obstruction pattern. No ascites. No pneumatosis intestinalis. No pneumoperitoneum. ABDOMINAL WALL: No gross hernia. No gross soft tissue hematoma/contusion's. LYMPH NODES: Lymphadenopathy, retroperitoneal/periaortic and periiliac, the largest measures 1.5 cm. VASCULAR: Throughout the abdominal aorta wall the origin of the main renal arteries mesenteric arteries and the iliac arteries. No gross aneurysm. PELVIC VISCERA: No evaluated. OSSEOUS STRUCTURES: Multilevel thoracolumbar spondylosis. Grade 1 anterolisthesis L4-5. Grade 1 retrolisthesis L5-S1. Osteopenia versus osteoporosis. No acute fracture. CT/CT abdomen pelvis wo IV con IMPRESSION: Lymphadenopathy, retroperitoneum and peripancreatic. Lymphoproliferative disorder among other etiologies. Liver disease/cirrhosis. Splenomegaly. Cholelithiasis. Diverticular disease. Nonspecific edema pattern the elisabeth hepatic periduodenal peripancreatic region. Fleischner guidelines were followed. Electronically signed by: Uri Branch MD 07/26/2024 03:34 PM EST Dictated By: Uri Dowling MD Signed By: <Electronically signed by Uri Aggarwal MDin OV> 07/26/24 1534 DD/ 1437 TD/TT: 07/26/24 1450 Psychiatrist: [facility] External Provider IMG CT PROCEDURES Final Result * Lipid Panel, Standard (09/16/2022 9:26 AM EDT) Triglycerides 134 mg/dL [facility] Comment:Desirable Triglyceri de: less than 150 mg/dLBorderline High Triglyceride 150-199 mg/dLHigh Triglyceride: 200-499 mg/dLVery High Triglyceride: greater than or equal to 5OO mg/dL Cholesterol 114 mg/dL [facility] Comment:Desirable Cholestero l: less than 200 mg/dLBorderline High Cholesterol: 200-239 mg/dLHigh Cholesterol: greater than 239 mg/dL LDL Cholesterol Calculated 59 mg/dl [facility] Comment:Desirable LDL: less than 100 mg/dLNear Optimal/Above Optimal LDL: 110- 129 mg/dLBorderline High LDL: 130-159 mg/dLHigh LDL: 160-189 mg/dLVery High LDL: greater than or equal to 190 mg/dL HDL Cholesterol 29 mg/dL [facility] Comment:Desirable HDL: great er than 40 mg/dL Note: This HDL assay may give artificially low results in patients with liver disease. 09/16/2022 9:26 AM EDT 09/16/2022 9:26 AM EDT [facility] External Provider LAB BLO OD ORDERABLES Final Result Performing Organization Address [facility] Co de Phone Number [facility] [address] [place] [address] [phone] * (ABNORMAL) MICROALBUMIN/CREATININE RATIO, RANDOM URINE (04/18/2022 8:43 AM EDT) Creatinine Urine 93.94 mg/dL [facility] Microalbum/Creati nine Ratio Ur 27.6 ug/mg cr [facility] Comment: ?Albumin/Creatinine Ratio Reference Ranges: ? Normal: < 30 ug/mg creatinine ? Microalbuminuria: ??30 - 300 ug/mg creatinine Clinical Albuminuria: ??> 300 ug/mg creatinine Microalbumin Urine 26.0 mg/L [facility] Protein/Creatinin e Ratio, Ur 0.18 <0.2 [facility] Comment: The spot urine protein:creatinine ratio may increase to 0.3 during normal . Total Protein Urine Random 17(H) <12 mg/dL [facility] 04/18/2022 8:43 AM EDT Arpit Bundy MD HISTORICAL/NON ORDERABLE LABS Final Result Performing Organization Address [facility] Co de Phone Number [facility] from Last 3 Months or Most Recently Relevant to Health Maintenance Insurance [address] [place] [id number] [facility] [place] [facility] Advance Directives Documents on File Type Date Recorded Patient Coordinate Measuring Machine Operator Expl anation HealthCare Proxy 06/28/2023 HEALTHCARE PROXY 06/13/23 Care Teams Unemployment Benefits Claims Taker Relationship Specialty Start Date End Date Name, MD Juan M [address] [place] [address] PCP - General Family Medicine 01/21/19 Gita Girard PharmD [address] [place] [address] Pharmacist Internal Medicine 07/14/22
--- OUTSIDE RECORDS SUMMARY | 2024-09-04 17:09 | XMS_ITS | Encounter Summary ---
Author Organization [facility] Address [address] [address] Phone Care Team Providers Care Mellowing Machine Operator Name Role Phone Name, Juan M BLUE Primary Care Provider [phone] Encounter Details Date Type Department Care Team (Late Contact Info) Description 09/04/2024 Orders Only [facility] [address] [place] [address] Arpit Bundy MD [address] [address] Stage 3b chronic kidney disease (HCC); Renal osteodystrophy; Chronic kidney disease, stage 4 [...] Office Visit [facility] [address] [place] [address] Arpit Bundy MD [address] [address] documented as of this encounter Visit Diagnoses Diagnosis Stage 3b chronic kidney disease (HCC) Renal osteodystrophy Chronic kidney disease, stage 4 (severe) (HCC) Essential hypertension documented in this encounter Care Teams Mellowing Machine Operator Relationship Specialty Start Date End Date Name, MD Juan M [address] [place] [address] PCP - General Internal Medicine 09/29/20 documented as of this encounter
--- OUTSIDE RECORDS SUMMARY | 2024-09-04 17:10 | XMS_ITS | Encounter Summary ---
Author Organization [employer] Address [address] [facility] [address] [place] [address] Care Team Providers Care Cut Off Saw Operator Name Role Phone Name, Juan M BLUE Primary Care Provider [phone] Gita Girard PharmD Unavailable [phone] Encounter Details Date Type Department Care Team (Latest Contact Info) Description 09/04/2024 Travel Social History Tobacco Use Types Packs/Day Years Used Date Smoking Tobacco: Never Passive Smoke Exposure: Never Smokeless Tobacco: Never Alcohol Use Standard Drinks/Week [...] Orientation Straight 04/18/2022 10 :14 AM EDT documented as of this encounter Plan of Treatment Upcoming Encounters Date Type Department Care Team (Late st Contact Info) Description 09/10/2024 11:30 AM EDT Medication Management [facility] [address] [place] [address] Gita Girard, PharmD [address] [place] [address] 11/04/2024 1:00 PM EDT Office Visit [facility] [address] [place] [address] Cathi Saul documented as of this encounter Goals Goal Patient Goal Type Associated Problems Recent Progress Patient-Stated? Author Patient will adhere to medication regimen General No SaraiaGita, PharmD Note: Take medications, including insulin, as prescribed. Hemoglobin A1c < 8 Result Component 6.6( 2:50 PM EDT) No Saraia Gita, PharmD Record your blood sugar as directed Result Component No rEa Gita, PharmD Note: Monitor BG via CGM ensuring sensor is scanned at least once every 8 hours. Utilize manual SMBG as needed and as directed. documented as of this encounter Visit Diagnoses Not on filedocumented in this encounter Additional Health Concerns Assessment Noted Time PHQ-9 Depression Total Score: 0 06/08/20 22 9:37 AM EST documented as of this encounter Care Teams Cut Off Saw Operator Relationship Specialty Start Date End Date Name, MD Juan M [address] [place] [address] PCP - General Family Medicine 01/21/19 Gita Girard, Kita [address] [place] [address] Pharmacist Internal Medicine 07/14/22 documented as of this encounter
--- OUTSIDE RECORDS SUMMARY | 2024-09-04 17:10 | XMS_ITS | Clinical Summary ---
Author Organization [facility] Address [address] [place] [phone] Phone Care Team Providers Care Hand Scraper Name Role Phone Anthony Ramirez MD Primary Care Provider Unav ailable Medications Medication Sig Dispensed Refills Start Date End Date Status amLODIPine (NORVASC) 5 MG tablet 1 tab(s) once a day mg 03/27/2017 Active warfarin (COUMADIN) 5 MG tablet 1 tab(s) once a day mg 10/24/2017 Active valsartan (DIOVAN) 160 MG tablet 1 tab(s) once a day mg 04/27/2018 Active furosemide (LASIX) 20 MG tablet 1 tab(s) once a day mg 04/27/2018 Active gabapentin (NEURONTIN) 300 MG capsule 1 cap(s) qd mg 08/20/2018 Active glipiZIDE (GLUCOTROL XL) 2.5 MG 24 hr tablet 1 tab(s) once a day mg 08/20/2018 Active rosuvastatin (CRESTOR) 10 MG tablet 1 tab(s) once a day (at bedtime) mg 08/20/2018 Active Apixaban (Eliquis) 2.5 MG tablet 1 tab(s) 2 times a day mg 08/20/2018 Active carvedilol (COREG) 3.125 MG tablet 1 tab(s) 2 times a day mg 08/20/2018 Active clopidogrel (PLAVIX) 75 MG tablet 1 tab(s) once a day mg 08/20/2018 Active omeprazole (PriLOSEC) [address] capsule 1 cap(s) once a day mg 08/20/2018 Active ferrous sulfate (FeroSul) 325 (65 Fe) MG tablet 1 tab(s) 1 times a day 90 mg 1 10/24/2017 Active torsemide (DEMADEX) 20 MG tablet 1 tab(s) every 2 days mg 08/20/2018 Active losartan (COZAAR) 50 MG tablet 1 tab(s) once a day 30 mg 08/20/2018 Active Active Problems Problem Noted Date Diagnosed Date Type 2 diabetes mellitus with hyperglycemia 07/21 Hyperlipidemia 08/11/2016 Essential (primary) hypertension 08/11/2016 Chronic kidney disease, stage 3 (moderate) 08/08 Immunizations Name Administration Dates Next Due Influenza TIV (IM) 11/30/2015 Social History Tobacco Use Types Packs/Day Years Used Date Smoking Tobacco: Never Assessed Sex and Gender Information Value Date Recorded Sex Assigned at Not on file Gender Identity Not on file Sexual Orientation Not on file Last Filed Vital Signs Vital Sign Reading Time Taken Comments Blood Pressure 147/80 08/20/2018 2:51 PM EST Pulse 90 08/20/2018 2:51 PM EST Temperature - - Respiratory Rate - - Oxygen Saturation - - Inhaled Oxygen Concentration - - Weight 78.5 kg (173 lb) 08/20/2018 2:51 PM EST Height 170.2 cm (5' 7 ) 08/20/2018 2:51 PM EST Body Mass Index 27.1 08/20/2018 2:51 PM EST Plan of Treatment Not on file Care Teams Hand Scraper Relationship Specialty Start Date End Date Anthony Ramirez MD PCP - General 07/06/16
--- OUTSIDE RECORDS SUMMARY | 2024-09-04 17:10 | XMS_ITS | Encounter Summary ---
Author Organization [employer] Address [address] [facility] 7t [place] [address] Care Team Providers Care Shop Manager Name Role Phone Name, Juan M BLUE Primary Care Provider [phone] Gita Girard PharmD Unavailable [phone] Reason for Visit * Reason Comments Med Refill Encounter Details Date Type Department Care Team (Late st Contact Info) Description 08/17/2024 Refill [facility] [address] [place], [place] [phone] Name, MD Juan M [address] [place] [address] Social History Tobacco Use Types Packs/Day Years [...] Recorded Patient Health Questionnaire-2 Score 0 06/09/2023 Sex and Gender Information Value Date Recorded Sex Assigned at Male 04/18/2022 10:14 AM EDT Legal Sex Male 10:14 AM EDT Gender Identity Male 04/18/2022 10:14 AM EDT Sexual Orientation Straight 04/18/2022 10 :14 AM EDT documented as of this encounter Plan of Treatment Upcoming Encounters Date Type Department Care Team (Late st Contact Info) Description 09/10/2024 11:30 AM EDT Medication Management [facility] [address] [place] [address] Gita Girard, PharmD [address] [place] [address] 11/04/2024 1:00 PM EDT Office Visit [facility] [address] [place] [address] Cathi Saul documented as of this encounter [...] documented as of this encounter Care Teams Shop Manager Relationship Specialty Start Date End Date Name, MD Juan M [address] [place] [address] PCP - General Family Medicine 01/21/19 Gita Girard PharmD [address] [place] [address] Pharmacist Internal Medicine 07/14/22 documented as of this encounter
--- OUTSIDE RECORDS SUMMARY | 2024-09-04 17:10 | XMS_ITS | Encounter Summary ---
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); Type 2 diabetes mellitus with unspecified complications (CMS/HCC) Social History Tobacco Use Types Packs/Day Years [...] Description 09/10/2024 11:30 AM EDT Medication Management [facility] [address] [place] [phone] Gita Girard PharmD [address] [place] [phone] 11/04/2024 1:00 PM EDT Office Visit [facility] ADULT DENTAL [address] [place] [address] aCthi Saul documented as of this encounter Goals [...] as of this encounter Visit Diagnoses Diagnosis 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
--- OUTSIDE RECORDS SUMMARY | 2024-09-04 17:10 | XMS_ITS | Encounter Summary ---
Author Organization [facility] Address [address], [place] [address] Phone Care Team Providers Care Gold Leaf Laborer Name Role Phone Anthony Ramirez MD Primary Care Provider Unav ailable Encounter Details Date Type Department Care Team (Late st Contact Info) Description 04/27/2018 Office Visit [facility] [address] [place], [place] [phone] Provider, MD Cindy [address] [place] [address] Social History Tobacco Use Types Packs/Day Years Used Date Smoking Tobacco: Never Assessed Sex and Gender Information Value Date Recorded Sex Assigned at Not on file Gender Identity Not on file Sexual Orientation Not on file documented as of this encounter Plan of Treatment Not on file documented as of this encounter Visit Diagnoses Not on filedocumented in this encounter Care Teams Gold Leaf Laborer Relationship Specialty Start Date End Date Anthony Ramirez MD PCP - General 07/06/16 documented as of this encounter
--- OUTSIDE RECORDS SUMMARY | 2024-09-04 17:10 | XMS_ITS | Encounter Summary ---
Author Organization [facility] Address [address], [place] [address] Phone Care Team Providers Care Test Data Developer Name Role Phone Anthony Ramirez MD Primary Care Provider Unav ailable Encounter Details Date Type Department Care Team (Late st Contact Info) Description 08/06/2018 Office Visit [facility] [address] [place], [place] [phone] Provider, MD Cindy [address] [place] [phone] Social History Tobacco Use Types Packs/Day Years Used Date Smoking Tobacco: Never Assessed Sex and Gender Information Value Date Recorded Sex Assigned at Not on file Gender Identity Not on file Sexual Orientation Not on file documented as of this encounter Plan of Treatment Not on file documented as of this encounter Visit Diagnoses Not on filedocumented in this encounter Care Teams Test Data Developer Relationship Specialty Start Date End Date Anthony Ramirez MD PCP - General 07/06/16 documented as of this encounter
--- OUTSIDE RECORDS SUMMARY | 2024-09-04 17:10 | XMS_ITS | Encounter Summary ---
Author Organization [employer] Address [address] [facility] 7t [place] [address] Care Team Providers Care Supervising Law Enforcement Analyst Name Role Phone Name, Juan M BLUE Primary Care Provider [phone] Gita Girard PharmD Unavailable [phone] Reason for Visit * Reason Onset Date Comments chart prep 09/03/2024 Encounter Details Date Type Department Care Team ([facility] st Contact Info) Description 09/03/2024 Telephone [facility] MED[facility] [address] [place], [place] [phone] Santosh Alexis MA chart prep Social History Tobacco Use Types Packs/Day Years [...] AM EDT documented as of this encounter Miscellaneous Notes * Telephone Encounter - Santosh Alexis MA - 09/03/2024 4:15 PM EDT Chart Prep Labs: not done Images: done Vaccines due: yes Referrals: complete Screenings: Foot Exam Overdue care gaps: Glucose, SDOH, PHQ-9 documented in this encounter Plan of Treatment Upcoming Encounters Date Type Department Care Team (Late st Contact Info) Description 09/10/2024 11:30 AM EDT Medication Management [facility] MED[facility] [address] [place] [address] Gita Girard, PharmD [address] [place] [address] 11/04/2024 1:00 PM EDT Office Visit [facility] ADULT DENTAL [address] [place] [address] Cathi Saul documented as of this encounter Goals Goal Patient Goal Type Associated Problems Recent Progress Patient-Stated? Author Patient will adhere to medication regimen General No Gita Girard, PharmD Note: Take medications, including insulin, as prescribed. Hemoglobin A1c < 8 Result Component 6.6( 5 2:50 PM EDT) No Gita Girard PharmD [...] documented as of this encounter Care Teams Supervising Law Enforcement Analyst Relationship Specialty Start Date End Date Name, MD Juan M [address] [place] [address] PCP - General Family Medicine 01/21/19 Gita Girard PharmD [address] [place] [address] Pharmacist Internal Medicine 07/14/22 documented as of this encounter
--- OUTSIDE RECORDS SUMMARY | 2024-09-04 17:10 | XMS_ITS | Encounter Summary ---
Author Organization [facility] Address 75 [facility] 7t [place] [address] Care Team Providers Care C.O.D. 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 No / Unsure 09/23/2022 2:21 PM EDT documented as of this encounter Plan of Treatment Upcoming Encounters Date Type Department Care Team (Late st Contact Info) Description 09/10/2024 11:30 AM EDT Medication Management [facility] MEDICINE [address] [place] [address] Gita Girard PharmD [address] [place] [address] 11/04/2024 1:00 PM EDT Office Visit [facility] ADULT DENTAL [address] [place], [place] [phone] Cathi Saul documented as of this encounter [...] as of this encounter Visit Diagnoses Diagnosis Chronic cough Cough Hypertension, unspecified type Diabetes mellitus type 2 with complications ([facility]) Right-sided low back pain without sciatica, unspecified chronicity Insomnia, unspecified type documented in this encounter Additional Health Concerns Assessment Noted Time PHQ-9 Depression Total Score: 0 06/08/20 22 9:37 AM EST documented as of this encounter Care Teams C.O.D. Audit Clerk Relationship Specialty Start Date End Date Name, MD Juan M [address] [place] [address] PCP - General Family Medicine 01/21/19 Gita Girard PharmD [address] [place] [address] Pharmacist Internal Medicine 07/14/22 documented as of this encounter
--- OUTSIDE RECORDS SUMMARY | 2024-09-04 17:10 | XMS_ITS | Encounter Summary ---
Author Organization [employer] Address [address] [facility] 7t [place] [address] Care Team Providers Care Printing Plate Maker Name Role Phone NameJuan M MD Primary Care Provider Gita Girard PharmD Unavailable [phone] Reason for Visit * Reason Comments Med Refill Encounter Details Date Type Department Care Team (Late st Contact Info) Description 08/20/2024 Refill [facility] [address] [place], [place] [phone] Name, MD Juan M [address] [place] [address] Chronic cough; Hypertension, unspecified type; Diabetes mellitus [...] Description 09/10/2024 11:30 AM EDT Medication Management [facility] MEDICINE [address] [place] [address] Gita Girard, DamonD [address] [place] [address] 11/04/2024 1:00 PM EDT Office Visit [facility] ADULT DENTAL [address] [place] [address] Cathi Saul documented as of this encounter [...] type 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
--- OUTSIDE RECORDS SUMMARY | 2024-09-04 17:10 | XMS_ITS | Encounter Summary ---
Author Organization [employer] Address [address] [facility] 7t [place] [address] Care Team Providers Care Audio Video Repairer Name Role Phone Name, Juan M BLUE Primary Care Provider [phone] Gita Girard PharmD Unavailable [phone] Reason for Visit * Reason Comments Med Refill Encounter Details Date Type Department Care Team (Late st Contact Info) Description 07/13/2023 Refill [facility] [address] [place], [place] [phone] Pia Berrios DO [address] [place] [address] Social History Tobacco Use Types Packs/Day Years [...] housing situation today? I have lucas quesada 04/06/[address] you li ve. Do you have problems with any of the following? None of the above 04/06/2023 Food Insecurity Answer Date Recorded Within the past 12 months, y ou worried that your food would run out before you got money to buy more: Never True 04/06/2023 Within the past 12 months,th e food you bought just didn't last and you didn't have enough money to get more: Never True Transportation Answer Date Recorded In the past 12 months, has l ack of transportation kept you from medical appts, meetings, work or from getting things needed for daily living? No 04/06/2023 Utilities Answer Date Recorded In the past 12 months, has t he electric, gas, oil or water company threatened to shut off services in your home? No 04/06/2023 Depression Answer Date Recorded Patient Health Questionnaire-2 [...] 11:30 AM EDT Medication Management [facility] MEDICINE [address] [place] [address] Gita Girard PharmD [address] [place] [address] 11/04/2024 1:00 PM EDT Office Visit [facility] ADULT DENTAL [address] [place] [address] Cathi Saul documented as of this encounter [...] documented as of this encounter Care Teams Audio Video Repairer Relationship Specialty Start Date End Date Name, MD Juan M [address] [place] [address] PCP - General Family Medicine 01/21/19 Gita Girard PharmD [address] [place] [address] Pharmacist Internal Medicine 07/14/22 documented as of this encounter
--- OUTSIDE RECORDS SUMMARY | 2024-09-04 17:10 | XMS_ITS | Encounter Summary ---
Author Organization [employer] Address 75 [facility] 7t [place] [address] Care Team Providers Care Thread Drawer Name Role Phone Name, Juan M BLUE Primary Care Provider [phone] Gita Girard PharmD Unavailable [phone] Encounter Details Date Type Department Care Team ([facility] st Contact Info) Description 05/17/2023 Telephone [facility] MEDICINE [address] [place], [place] [phone] Name, MD Juan M 230 [place] [address] Social History Tobacco Use Types Packs/Day Years [...] is your housing situation today? I have lucsa quesada 04/06/[address] you [...] Description 09/10/2024 11:30 AM EDT Medication Management [facility] MEDICINE [address] [place] [address] Gita Girard PharmD [address] [place] [address] 11/04/2024 1:00 PM EDT Office Visit [facility] ADULT DENTAL [address] [place] [address] Cathi Saul documented as of this encounter [...] documented as of this encounter Care Teams Thread Drawer Relationship Specialty Start Date End Date Name, MD Juan M [address] [place] [address] PCP - General Family Medicine 01/21/19 Gita Girard, Kita 230 [place] [address] Pharmacist Internal Medicine 07/14/22 documented as of this encounter
--- OUTSIDE RECORDS SUMMARY | 2024-09-04 17:10 | XMS_ITS | Encounter Summary ---
Author Organization [employer] Address [address] [address] Phone Care Team Providers Care Dairy Nutrition Specialist Name Role Phone Anthony Ramirez MD Primary Care Provider Unav ailable Encounter Details Date Type Department Care Team (Late st Contact Info) Description 08/20/2018 Office Visit [facility] [place] [facility] [address] [place], [place] [phone] Provider, MD Cindy [address] [place] [address] Social History Tobacco Use Types Packs/Day Years Used Date Smoking Tobacco: Never Assessed Sex and Gender Information Value Date Recorded Sex Assigned at Not on file Gender Identity Not on file Sexual Orientation Not on file documented as of this encounter Plan of Treatment Not on file documented as of this encounter Visit Diagnoses Not on filedocumented in this encounter Care Teams Dairy Nutrition Specialist Relationship Specialty Start Date End Date Anthony Ramirez MD PCP - General 07/06/16 documented as of this encounter
--- OUTSIDE RECORDS SUMMARY | 2024-09-04 17:10 | XMS_ITS | Encounter Summary ---
Author Organization [employer] Address [address], [place] [address] Phone Care Team Providers Care Photo Finisher Name Role Phone Anthony Ramirez MD Primary Care Provider Unav ailable Encounter Details Date Type Department Care Team (Late st Contact Info) Description 04/23/2018 Office Visit [facility] [address] [place], [place] [phone] Provider, MD Cindy [address] [place] [address] Social History Tobacco Use Types Packs/Day Years Used Date Smoking Tobacco: Never Assessed Sex and Gender Information Value Date Recorded Sex Assigned at Not on file Gender Identity Not on file Sexual Orientation Not on file documented as of this encounter Plan of Treatment Not on file documented as of this encounter Visit Diagnoses Not on filedocumented in this encounter Care Teams Photo Finisher Relationship Specialty Start Date End Date Anthony Ramirez MD PCP - General 07/06/16 documented as of this encounter
--- OUTSIDE RECORDS SUMMARY | 2024-09-04 17:10 | XMS_ITS | Encounter Summary ---
Author Organization [employer] Address [address] [facility] 7t [place] [address] Care Team Providers Care Steward Racetrack Name Role Phone Name, Juan M BLUE Primary Care Provider [phone] Gita Girard PharmD Unavailable [phone] Reason for Visit * Reason Comments Med Refill Encounter Details Date Type Department Care Team (Late st Contact Info) Description 06/14/2023 Refill [facility] MEDICINE [address] [place], [place] [phone] Name, MD Juan M [address] [place] [address] Chronic cough; Hypertension, unspecified type; Diabetes mellitus [...] Description 09/10/2024 11:30 AM EDT Medication Management [facility] MEDICINE [address] [place] [address] Gita Girard, DamonD [address] [place] [address] 11/04/2024 1:00 PM EDT Office Visit [facility] ADULT DENTAL [address] [place] [address] Cathi Saul documented as of this encounter [...] type Diabetes mellitus type 2 with complications (CMS/[facility]) Right-sided low back pain without sciatica, unspecified chronicity Insomnia, unspecified type documented in this encounter Additional Health Concerns Assessment Noted Time PHQ-9 Depression Total Score: 0 06/08/20 22 9:37 AM EST documented as of this encounter Care Teams Steward Racetrack Relationship Specialty Start Date End Date Name, MD Juan M [address] [place] [address] PCP - General Family Medicine 01/21/19 Gita Girard PharmD [address] [place] [address] Pharmacist Internal Medicine 07/14/22 documented as of this encounter
--- OUTSIDE RECORDS SUMMARY | 2024-09-04 17:10 | XMS_ITS | Encounter Summary ---
Author Organization [facility] [facility] [employer] Address [address] [address] Phone Care Team Providers Care Yellow Pages Space Salesperson Name Role Phone Anthony Ramirez MD Primary Care Provider Unav ailable Encounter Details Date Type Department Care Team (Late st Contact Info) Description 06/27/2017 Office Visit [facility] [address] [place], [place] [phone] Provider, MD Cindy [address] [place] [address] Social History Tobacco Use Types Packs/Day Years Used Date Smoking Tobacco: Never Assessed Sex and Gender Information Value Date Recorded Sex Assigned at Not on file Gender Identity Not on file Sexual Orientation Not on file documented as of this encounter Plan of Treatment Not on file documented as of this encounter Visit Diagnoses Not on filedocumented in this encounter Care Teams Yellow Pages Space Salesperson Relationship Specialty Start Date End Date Anthony Ramirez MD PCP - General 07/06/16 documented as of this encounter
--- OUTSIDE RECORDS SUMMARY | 2024-09-04 17:10 | XMS_ITS | Encounter Summary ---
Author Organization [facility] Address [address], [place] [address] Phone Care Team Providers Care Complaint Coordinator Name Role Phone Anthony Ramirez MD Primary Care Provider Unav ailable Encounter Details Date Type Department Care Team (Late st Contact Info) Description 06/27/2017 Office Visit [facility] [address] [place], [place] [phone] Provider, MD Cindy [address] [place] [address] Social History Tobacco Use Types Packs/Day Years Used Date Smoking Tobacco: Never Assessed Sex and Gender Information Value Date Recorded Sex Assigned at Not on file Gender Identity Not on file Sexual Orientation Not on file documented as of this encounter Plan of Treatment Not on file documented as of this encounter Visit Diagnoses Not on filedocumented in this encounter Care Teams Complaint Coordinator Relationship Specialty Start Date End Date Anthony Ramirez MD PCP - General 07/06/16 documented as of this encounter
--- OUTSIDE RECORDS SUMMARY | 2024-09-04 17:10 | XMS_ITS | Encounter Summary ---
Author Organization [employer] Address [address] [address] Phone Care Team Providers Care Syrup Mixer Helper Name Role Phone Anthony Ramirez MD Primary Care Provider Unav ailable Encounter Details Date Type Department Care Team (Late st Contact Info) Description 10/24/2017 Office Visit [facility] [address] [place], [place] [phone] Provider, MD Cindy [address] [place] [address] Social History Tobacco Use Types Packs/Day Years Used Date Smoking Tobacco: Never Assessed Sex and Gender Information Value Date Recorded Sex Assigned at Not on file Gender Identity Not on file Sexual Orientation Not on file documented as of this encounter Plan of Treatment Not on file documented as of this encounter Visit Diagnoses Not on filedocumented in this encounter Care Teams Syrup Mixer Helper Relationship Specialty Start Date End Date Anthony Ramirez MD PCP - General 07/06/16 documented as of this encounter
--- OUTSIDE RECORDS SUMMARY | 2024-09-04 17:10 | XMS_ITS | Encounter Summary ---
Author Organization [employer] Address [address], [place] [address] Phone Care Team Providers Care Solar Energy System Installer Name Role Phone Anthony Ramirez MD Primary Care Provider Unav ailable Encounter Details Date Type Department Care Team (Late st Contact Info) Description 03/27/2017 Office Visit [facility] [address] [place], [place] [phone] Provider, MD Cindy [address] [place] [address] Social History Tobacco Use Types Packs/Day Years Used Date Smoking Tobacco: Never Assessed Sex and Gender Information Value Date Recorded Sex Assigned at Not on file Gender Identity Not on file Sexual Orientation Not on file documented as of this encounter Plan of Treatment Not on file documented as of this encounter Visit Diagnoses Not on filedocumented in this encounter Care Teams Solar Energy System Installer Relationship Specialty Start Date End Date Anthony Ramirez MD PCP - General 07/06/16 documented as of this encounter
--- OUTSIDE RECORDS SUMMARY | 2024-09-04 17:10 | XMS_ITS | Encounter Summary ---
Author Organization [employer] Address [address] [facility] 7t [place] [address] Care Team Providers Care Liquefied Natural Gas Operator Name Role Phone Name, Juan M BLUE Primary Care Provider [phone] Gita Girard PharmD Unavailable [phone] Encounter Details Date Type Department Care Team ([facility] st Contact Info) Description 12/13/2023 Telephone [facility] [address] [place] [address] Kenny Hopson, RONDAS [address] [place] [address] Social History Tobacco Use Types Packs/Day Years [...] encounter Miscellaneous Notes * Telephone Encounter - Rebeca Montano - 12/13/2023 10:53 AM EDT Patient is looking for dentures can we book him if there in the office . documented in this encounter Plan of Treatment Upcoming Encounters Date Type Department Care Team (Late st Contact Info) Description 09/10/2024 11:30 AM EDT Medication Management [facility] MEDICINE [address] [place] [address] Gita Girard PharmD [address] [place] [address] 11/04/2024 1:00 PM EDT Office Visit [facility] ADULT DENTAL [address] [place] [address] Cathi Saul documented as of this encounter [...] documented as of this encounter Care Teams Liquefied Natural Gas Operator Relationship Specialty Start Date End Date Name, MD Juan M [address] [place] [address] PCP - General Family Medicine 01/21/19 Gita Girard PharmD [address] [place] [address] Pharmacist Internal Medicine 07/14/22 documented as of this encounter
--- OUTSIDE RECORDS SUMMARY | 2024-09-04 17:10 | XMS_ITS | Encounter Summary ---
Author Organization [facility] Address [address] [place] [address] Phone Care Team Providers Care Freight Brakeman Name Role Phone Anthony Ramirez MD Primary Care Provider Unav ailable Encounter Details Date Type Department Care Team (Late st Contact Info) Description 01/17/2020 Abstract [facility] [address] [place] [address] Provider, MD Cindy [address] [place] [address] Social History Tobacco Use Types Packs/Day Years Used Date Smoking Tobacco: Never Assessed Sex and Gender Information Value Date Recorded Sex Assigned at Not on file Gender Identity Not on file Sexual Orientation Not on file documented as of this encounter Plan of Treatment Not on file documented as of this encounter Visit Diagnoses Not on filedocumented in this encounter Care Teams Freight Brakeman Relationship Specialty Start Date End Date Anthony Ramirez MD PCP - General 07/06/16 documented as of this encounter
--- OUTSIDE RECORDS SUMMARY | 2024-09-04 17:10 | XMS_ITS | Encounter Summary ---
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 male who presents for Diabetes. Patient comes accompanied by his LAB COURIER. He is asymptomatic. His blood sugar is overall well-controlled. Hemoglobin A1c is 6.6. He is having episodes of hypoglycemia in the mornings in the 60s. The patient's diabetes is managed with insulin Tresiba at bedtime and NovoLog prior to meals. He is supposedto use 14 units of Tresiba at bedtime but the patient tells me he often uses 20 units depending on how is his blood sugar. He continues to have a liberal diet. We discussed the results of recent CT scan of the abdomen done at [facility]. Patient had liver findings consistent with cirrhosis. He had significant lymphadenopathy in the abdomen. He had gallstones as well. The patient denies any abdominal discomfort. He does not have any lymphadenopathy on palpation on the axillary or neck regions. Review of Systems Constitutional: Negative for chills, fatigue and fever. HENT: Negative for sore throat. Respiratory: Negative for cough, chest tightness and shortness of breath. Cardiovascular: Negative for chest pain, palpitations and leg swelling. Gastrointestinal: Negative for abdominal pain and blood in stool. Visit Vitals BP (!) 148/78 (BP Location: Left arm, Patient Position: Sitting, BP Cuff Size: Adult) Pulse 85 Temp 98.1 ??F (36.7 ??C) (Temporal) Resp 18 Ht 5' 7 (1.702 m) Wt 162 lb 6.4 oz (73.7 kg) SpO2 98% BMI 25.44 kg/m?? Smoking Status Never BSA 1.87 m?? Objective Physical Exam Constitutional: Appearance: Normal appearance. Cardiovascular: Rate and Rhythm: Normal rate and regular rhythm. Pulses: Dorsalis pedis pulses are 2+ on the right side and 2+ on the left side. Posterior tibial pulses are 2+ on the right side and 2+ on the left side. Heart sounds: Murmur heard. Pulmonary: Effort: Pulmonary effort is normal. No respiratory distress. Breath sounds: No wheezing, rhonchi or rales. Abdominal: Palpations: Abdomen is soft. Tenderness: There is no abdominal tenderness. Musculoskeletal: Right lower leg: Edema present. Left lower leg: Edema present. Right foot: Normal range of motion. Left foot: Normal range of motion. Comments: 1+ pretibial edema Feet: Right foot: Protective Sensation: 5 sites tested. 5 sites sensed. Skin integrity: No ulcer. Toenail Condition: Right toenails are normal. Left foot: Protective Sensation: 5 sites tested. 5 sites sensed. Skin integrity: No ulcer. Toenail Condition: Left toenails are normal. Neurological: Mental Status: He is alert. Lab Results Component Value Date HGBA1C 6.6 (A) 09/04/2024 HGBA1C 6.6 (A) 04/24/2024 HGBA1C 7.1 (A) 01/25/2024 HGBA1C 6.0 10/25/2023 HGBA1C 6.1 (A) 08/09/2023 HGBA1C 7.5 (A) 04/06/2023 HGBA1C 6.5 12/28/2022 HGBA1C 7.5 09/16/2022 HGBA1C 8.6 (A) 06/08/2022 HGBA1C 7.2 (H) 01/19/2021 HGBA1C 6.2 (H) 02/10/2020 HGBA1C 6.2 (H) 02/10/2020 Lab Results Component Value Date CREATININE 2.10 (H) 02/14/2024 CREATININE 2.03 (H) 10/17/2023 CREATININE 2.05 (H) 05/24/2023 CREATININE 1.78 (H) 05/22/2023 CREATININE 2.17 (H) 04/12/2023 CREATININE 2.36 (H) 04/06/2023 CREATININE 2.21 (H) 10/14/2022 CREATININE 2.46 (H) 09/16/2022 CREATININE 2.28 (H) 09/08/2022 CREATININE 2.46 (H) 09/08/2022 CREATININE 2.23 (H) 04/21/2022 CREATININE 2.35 (H) 04/18/2022 CREATININE 2.35 (H) 04/18/2022 CREATININE 2.77 (H) 10/18/2021 CREATININE 2.59 (H) 07/12/2021 CREATININE 2.55 (H) 03/18/2021 CREATININE 1.92 (H) 11/13/2020 CREATININE 2.06 (H) 09/21/2020 CREATININE 2.06 (H) 09/21/2020 CREATININE 2.06 (H) 09/21/2020 Lab Results Component Value Date GLUCOSE 207 (H) 02/14/2024 NA 137 02/14/2024 K 3.6 02/14/2024 CO2 26 02/14/2024 CL 100 02/14/2024 BUN 37 (H) 02/14/2024 CREATININE 2.10 (H) 02/14/2024 Lab Results Component Value Date WBC 8.9 02/14/2024 HGB 10.0 (L) 02/14/2024 HCT 30.2 (L) 02/14/2024 MCV 89.3 02/14/2024 PLT 173 02/14/[address] [address] [address] Scan Report Signed Patient: Dk Sepulveda MR#: [id number] : 1940 Acct:[id number] Age/Sex: 83 / M ADM Date: 07/26/24 Loc: HO.CT Attending Dr: Ronni Dodge MD Ordering Physician: Ronni Dodge MD Date of Service: 07/26/24 Procedure(s): CT abdomen pelvis wo IV con Accession Number(s): [id number] cc: Ronni Dodge MD; Name,Juan M BLUE Report Number: [id number]: Total DLP = 351.00 mGy-cm EXAMINATION: CT [...] Signed By: <Electronically signed by Uri Aggarwal MD in OV> 07/26/24 1534 Assessment/Plan Diagnoses and all orders for this visit: 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 Avoid sweets and soda. Orders: - POCT Glucose - POCT HGB A1C - insulin degludec (Tresiba FlexTouch) 100 UNIT/ML injection; Inject 10 Units under the skin at bedtime. Hypoglycemia due to type 2 diabetes mellitus (CMS/HCC) Stage 3b chronic kidney disease (CMS/HCC) Comments: Continue current BP meds. Avoid NSAIDs. Recheck CMP. Gallstones Comments: Asymptomatic. No need for surgery at this point based on his lack of symptoms. He also has high surgical risk given his other medical problems. He has upcoming appointment with surgery to discuss. Abdominal lymphadenopathy Comments: I recommended evaluation with CBC, CMP, LDH, HIV testing. I will contact the patient with further recommendation based on the results. Orders: - CBC auto differential; Future - Comprehensive Metabolic Panel; Future - HIV-1/2 Antigen and Antibodies, Fourth Generation, with Reflexes; Future - Lactate Dehydrogenase (LD); Future Cirrhosis of liver without ascites, unspecified hepatic cirrhosis type (CMS/HCC) Comments: I recommended evaluation of viral hepatitis. I will contact the patient with further recommendationbased on the results. He tells me he used to drink alcohol many years ago but was never a big drinker. Orders: - Hepatitis C Antibody with Reflex to HCV, RNA, Quantitative, Real-Time PCR; Future - Hepatitis B surface antigen, EIA; Future - Hepatitis B Surface Antibody, Qualitative; Future - Hepatitis A Antibody, Total; Future Other orders - Flu vaccine greater than or equal to 6 months old, preservative free IM documented in this encounter Plan of Treatment Upcoming Encounters Date Type Department Care Team (Late st Contact Info) Description 09/10/2024 11:30 AM EDT Medication Management [facility] [address] [place] [address] Gita Girard, PharmD [address] [place] [address] 11/04/2024 1:00 PM EDT Office Visit [facility] D[facility] [address] [place] [address] Cathi Saul Scheduled Orders Name Type Priority Associated Diagnoses Orde r Schedule Comprehensive Metabolic Panel Lab Routine Abdominal lymphadenopathy Expected: 09/04/2024 (Approximate), Expires: 09/04/2025 Hepatitis C Antibody with Reflex to HCV, RNA, Quantitative, Real-Time PCR Lab Routine Cirrhosis of liver without ascites, unspecified hepatic cirrhosis type (CMS/HCC) Expected: 09/04/2024, Expires: 09/04/2025 Hepatitis B surface antigen, EIA Lab Routine Cirrhosis of liver without ascites, unspecified hepatic cirrhosis type (CMS/HCC) Expected: 09/04/2024 (Approximate), Expires: 09/04/2025 Hepatitis B Surface Antibody, Qualitative Lab Routine Cirrhosis of liver without ascites, unspecified hepatic cirrhosis type (CMS/HCC) Expected: 09/04/2024 (Approximate), Expires: 09/04/2025 Hepatitis A Antibody, Total Lab Routine Cirrhosis of liver without ascites, unspecified hepatic cirrhosis type (CMS/HCC) Expected: 09/04/2024 (Approximate), Expires: 09/04/2025 HIV-1/2 Antigen and Antibodies, Fourth Generation, with Reflexes Lab Routine Abdominal lymphadenopathy Expected: 09/04/2024 (Approximate), Expires: 09/04/2025 Lactate Dehydrogenase (LD) Lab Routine Abdominal lymphadenopathy Expected: 09/04/2024 (Approximate), Expires: 09/04/2025 documented as of this encounter Goals Goal Patient Goal Type Associated Problems Recent Progress Patient-Stated? Author Patient will adhere to medication regimen General No Gita Girard, Kita Note: Take medications, including insulin, as prescribed. Hemoglobin A1c < 8 Result Component 6.6( 2:50 PM EDT) No Gita Girard, PharmD Record your blood sugar as directed Result Component No Gita Girard, PharmD Note: Monitor BG via CGM ensuring sensor is scanned at least once every 8 hours. Utilize manual SMBG as needed and as directed. 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) POCT GLUCOSE Routine 09/04/2024 2:37 PM EDT Diabetes mellitus type 2 with complications ([facility]) documented in this encounter Results * (ABNORMAL) CBC auto differential (09/04/2024 3:07 PM EDT) White Blood Count 6.4 4.8 - 10.8 X10*3/uL [facility] Red Blood Count 3.58(L) 4.60 - 5.80 X10*6/uL [facility] Hemoglobin 10.7(L) 14.0 - 18.0 g/dl [facility] Hematocrit 31.7(L) 42.0 - 52.0 % [facility] Mean Corpuscular Volume 88.5 80.0 - 98.0 fL [facility] Mean Corpuscular Hemoglobin 29.9 27.0 - 33.0 pg [facility] Mean Corpuscular HGB Conc 33.8 31.0 - 36.0 g/dl [facility] Red Cell Distribution Width 15.3 11.0 - 16.0 % [facility] Platelet Count 129(L) 160 - 400 X10*3/uL [facility] Mean Platelet Volume 9.8 9.4 - 12.4 fL [facility] Neutrophils Percent Auto 63.3 45 - 73 % [facility] Imm Gran Pct Auto 0.5(H) 0.0 - 0.4 % [facility] Lymphocytes Percent Auto 25.6 20 - 40 % [facility] Monocytes Percent Auto 8.1 2 - 11 % [facility] Eosinophils Percent Auto 2.3 0 - 4 % [facility] Basophils Percent Auto 0.2 0 - 2 % [facility] NRBC Pct Auto 0.0 0.0 - 0.2 /100WBC [facility] Neutrophils Absolute Auto 4.1 2.0 - 8.3 x10*3/uL [facility] Imm Gran Abs Auto 0.03 0.00 - 0.03 X10*3/uL [facility] Lymphocytes Absolute Auto 1.7 1.2 - 4.9 X10*3/uL [facility] Monocytes Absolute Auto 0.5 0.1 - 1.2 X10*3/uL [facility] Eosinophils Absolute Auto 0.2 0.0 - 0.4 X10*3/uL [facility] Basophils Absolute Auto 0.0 0.0 - 0.2 X10*3/uL [facility] NRBC Abs Auto 0.000 0.0 - 0.012 X10*3/uL [facility] Blood Venous blood specimen / Unknown 09/04/2024 3:07 PM EDT 09/04/2024 4:08 PM EDT Result Tahmina Rogers MD LAB BLOOD ORDERABLES Final Resul t [facility] [address] [place] [phone] * (ABNORMAL) POCT HGB A1C (09/04/2024 2:50 PM EDT) Hemoglobin A1C 6.6(A) 4.0 - 6.0 % QC Media Lot # [id number] Lot# Expiration Date 110,426 Blood 09/04/2024 2:50 PM EDT Result Tahmina Rogers MD POINT OF CARE TEST ENTER/EDIT OR DERABLES Final Result * (ABNORMAL) POCT Glucose (09/04/2024 2:37 PM EDT) Glucose Blood, POC 214(A) 60 - 200 mg/dL QC Media Lot # [id number] Lot# Expiration Date 82,625 Blood Capillary blood specimen / Unknown 09/04/2024 2:37 PM EDT Result Tahmina Rogers MD POINT OF CARE TEST ENTER/EDIT OR DERABLES Final Result documented in this encounter Visit Diagnoses Diagnosis 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)- Primary Hypoglycemia due to type 2 diabetes mellitus (CMS/HCC) Stage 3b chronic kidney disease (CMS/HCC) Gallstones Calculus of gallbladder without mention of cholecystitis or obstruction Abdominal lymphadenopathy Cirrhosis of liver without ascites, unspecified hepatic cirrhosis type (CMS/HCC) documented in this encounter Additional Health Concerns Assessment Noted Time PHQ-9 Depression Total Score: 0 06/08/20 22 9:37 AM EST documented as of this encounter Care Teams Criminal Analyst Relationship Specialty Start Date End Date Name, MD Juan M [address] [place] [address] PCP - General Family Medicine 01/21/19 Gita Girard PharmD [address] [place] [address] Pharmacist Internal Medicine 07/14/22 documented as of this encounter
--- OUTSIDE RECORDS SUMMARY | 2024-09-04 17:10 | XMS_ITS | Encounter Summary ---
Author Organization [facility] Address [address] [facility] [address] [place] [address] Phone Care Team Providers Care Department Store Manager Name Role Phone Name, Juan M BLUE Primary Care Provider [phone] Reason for Visit * Reason Comments Med Refill Encounter Details Date Type Department Care Team ([facility] [address] Contact Info) Description 02/14/2022 Refill [facility] [address] [facility] [address] [place] [address] Colt Alfonso MD Social History Tobacco Use Types Packs/Day Years [...] Upcoming Encounters Date Type Department Care Team ([facility] [address] Contact Info) Description 03/17/2025 3:00 PM EDT Office Visit [facility] [address] [place] [address] [facility] [place] [phone] Arpit Bundy MD [address] [facility] [address] [place] [phone] documented as of this encounter Visit Diagnoses Not on filedocumented in this encounter Care Teams Department Store Manager Relationship Specialty Start Date End Date Name, MD Juan M [address] [place] [id number] PCP - General Internal Medicine 09/29/20 documented as of this encounter
--- OUTSIDE RECORDS SUMMARY | 2024-09-04 17:10 | XMS_ITS | Encounter Summary ---
Author Organization [employer] Address [address] [facility] 7[address] [place] [address] Care Team Providers Care Director Of Partner Marketing Name Role Phone Name, Juan M BLUE Primary Care Provider [phone] Gita Girard PharmD Unavailable [phone] Reason for Visit * Reason Comments Med Refill Encounter Details Date Type Department Care Team (Late st Contact Info) Description 08/16/2024 Refill [facility] [address] [place], [place] [phone] Name, MD Juan M [address] [place] [address] Social History Tobacco Use Types Packs/Day Years [...] Description 09/10/2024 11:30 AM EDT Medication Management [facility] [address] [place] [address] Gita Girard, PharmD [address] [place], [place] [phone] 11/04/2024 1:00 PM EDT Office Visit [facility] ADULT DENTAL [address] [place] [address] Cathi Saul documented as of this encounter [...] documented as of this encounter Care Teams Director Of Partner Marketing Relationship Specialty Start Date End Date Name, MD Juan M [address] [place] [address] PCP - General Family Medicine 01/21/19 Gita Girard PharmD [address] [place] [address] Pharmacist Internal Medicine 07/14/22 documented as of this encounter
--- OUTSIDE RECORDS SUMMARY | 2024-09-04 17:10 | XMS_ITS | Clinical Summary ---
Author Organization [facility] Address [address] [facility] [address] [place] [address] Phone Care Team Providers Care Vault Installer Name Role Phone Name, Juan M BLUE Primary Care Provider [phone] Allergies Active Allergy Reactions Criticality Noted Date Comments Nsaids 09/21/2022 DUE TO CKD Medications apixaban (ELIQUIS) 2.5 MG tablet Take 5 mg by mouth twice a day Active carvedilol (COREG) 3.125 MG tablet Take 1 tablet by mouth 1 (one) time each day Active rosuvastatin (CRESTOR) 10 MG tabletIndicatio ns:Renal osteodystrophy, Hypertensive chronic kidney disease, unspecified, with chronic kidney disease stage I through stage IV, or unspecified,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> (HCC) Take 1 tablet by mouth 1 (one) time each day Active Melatonin Maximum Strength 5 MG tablet 1 Active NovoLOG FLEXPEN 100 UNIT/ML injection 1 Active Lantus SoloStar 100 UNIT/ML injection INJECT 10 UNITS BY SUBCUTANEOUS ROUTE EVERY EVENING 1 Active omeprazole (PriLOSEC) [address] capsule TAKE 1 CAPSULE BY MOUTH EVERY DAY BEFORE A MEAL 1 Active Rybelsus 3 MG tablet TAKE 1 TABLET IN THE MORNING 30 MIN BEFORE ANY FOOD, DRINK OR MEDICATION WITH 4 OZ PLAIN WATER 1 Active Finerenone (Kerendia) 10 MG tabletIndicatio ns:Chronic kidney disease, stage 4 (severe) (HCC),Hypertens liborio chronic kidney disease, unspecified, with chronic kidney disease stage I through stage IV, or unspecified Take 10 mg by mouth 1 (one) time each day 90 tablet 3 03/13/202 3 Active torsemide (DEMADEX) 20 MG tabletIndicatio ns:Chronic kidney disease, stage 4 (severe) (HCC),Hypertens liborio chronic kidney disease, unspecified, with chronic kidney disease stage I through stage IV, or unspecified Take 3 tablets (60 mg total) by mouth 1 (one) time each day 270 tablet 1 3 Active Additional Information Patient taking differently: 80 mgOral Daily, Reported on 05/25/2023 metOLazone 2.5 MG tabletIndicatio ns:Chronic kidney disease, stage 4 (severe) (HCC),Hypertens liborio chronic kidney disease, unspecified, with chronic kidney disease stage I through stage IV, or unspecified Take 1 tablet (2.5 mg total) by mouth 3 times weekly: Mon and Monday morning 36 tablet 2 3 Active ergocalciferol 1.25 MG (54411 UT) capsule TAKE 1 CAPSULE BY MOUTH EVERY 14 DAYS 4 capsule 1 3 Active Easy Touch Lancets 33G/Twist misc 3 Active gabapentin (NEURONTIN) 100 MG capsuleIndicati ons:Renal osteodystrophy, Hypertensive chronic kidney disease, unspecified, with chronic kidney disease stage I through stage IV, or unspecified,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> (HCC) Take 1 capsule (100 mg total) by mouth 1 (one) time each day in the evening 90 capsule 3 Active gabapentin (NEURONTIN) 100 MG capsuleIndicati ons:Renal osteodystrophy, Hypertensive chronic kidney disease, unspecified, with chronic kidney disease stage I through stage IV, or unspecified,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 Active colchicine 0.6 MG tablet Take 0.6 mg by mouth 1 (one) time each day Active calcitriol (ROCALTROL) 0.25 MCG capsule TAKE 1 CAPSULE BY MOUTH EVERY OTHER DAY IN THE MORNING 45 capsule 2 4 Active ferrous sulfate 325 (65 Fe) MG EC tabletIndicatio ns:Chronic kidney disease, stage 4 (severe) (HCC),Hypertens liborio chronic kidney disease, unspecified, with chronic kidney disease stage I through stage IV, or unspecified Take 1 tablet (325 mg total) by mouth 1 (one) time each day with breakfast 90 tablet 3 5 Active Active Problems Problem Noted Date Diagnosed Date Gout 02/15/2024 Recurrent falls 04/06/2023 04/24/2023 Overview (04/24/2023): Last Assessment & Plan: pt with hx of subdural hematoma on [...] VNA Subconjunctival hemorrhage of left eye 3 04/24/2023 Overview (04/24/2023): Last Assessment & Plan: Allergic? HTN? Reassurance since there is no abn vision. Optometry clinic will see him this week to ro retinal or other hemorrhage given CV risk factors Fu with regular eye clinic on March. Osteoarthritis of right knee joint 12/15/2022 04/24/2023 Pain in right wrist 11/24/2022 04/24/2023 Overview (04/24/2023): Last Assessment & Plan: Pt w 1 [...] apt scheduled w PCP x next month History of craniotomy 05/26/2022 04/24/2023 History of cerebrovascular accident with residua l deficit 05/26/2022 04/24/2023 Edema 05/26/2022 04/24/2023 Coronary arteriosclerosis 05/26/20222022 Constipation 05/26/2022 04/24/2023 Chronic gout without tophus 05/26/2022 1111/2022 Pericardial effusion 05/26/2022 04/24/2023 Normally functioning cardiac pacemaker in situ 1 07/27/2021 04/24/2023 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 04/24/2023 Low back pain 05/26/2022 04/24/2023 Insomnia 05/26/2022 04/24/2023 History of subdural hematoma 05/26/202211/2022 History of SARS-CoV-2 05/26/2022 04/24/2023 Venous intermittent claudication 05/26/2022 04/24/2023 Varicose veins of lower extremity 05/26/2022 04/24/2023 Stented coronary artery 05/26/2022 04/24/20 Chronic kidney disease, stage 4 (severe) 022 Chronic kidney disease, stage 4 (severe) 022 Stage 3b chronic kidney disease 09/29/2020 Hypertensive chronic kidney disease, unspecified, with chronic kidney disease stage I through stage IV, or unspecified 08/20/2020 Renal disorder due to type 2 diabetes mellitus 0 08/20/2020 Renal osteodystrophy 08/20/2020 Tinnitus 07/18/2013 04/24/2023 Varicocele 04/24/2013 04/24/2023 Gastroesophageal reflux disease 04/20/2012 04/24/2023 Essential hypertension 04/20/2012 Chronic neck pain 04/20/2012 04/24/2023 Biliary calculus 04/20/2012 04/24/2023 Benign prostatic hyperplasia 04/20/201211/2022 Anemia 04/20/2012 04/24/2023 Persistent atrial fibrillation 04/20/2012 1 06/24/2022 Hyperlipidemia 04/20/2012 04/24/2023 Resolved Problems Problem Noted Date Diagnosed Date Resolved Date Chronic kidney disease stage 3 08/20/2020 02/08/2021 Stage 3a chronic kidney disease 08/20/2020 02/08/2021 Encounters Date Type Department Care Team Description 09/04/2024 Orders Only [facility] [address] [place] [address] Arpit Bundy MD Stage 3b chronic kidney disease (HCC); Renal osteodystrophy; Chronic kidney disease, stage 4 (severe) (HCC); Essential hypertension 09/02/2024 1:45 PM EDT Office Visit [facility] [address] [place] [address] Arpit Bundy MD Stage 3b chronic kidney disease (HCC) (Primary Dx); Renal osteodystrophy; Chronic kidney disease, stage 4 (severe) (HCC); Essential hypertension 06/26/2024 Refill [facility] [address] [phone] Kari Pardo [place] Chronic kidney disease, stage 4 (severe) (HCC); Hypertensive chronic kidney disease, unspecified, with chronic kidney disease stage I through stage IV, or unspecified 06/25/2024 Refill [facility] [address] [phone] Rukhsana Gardiner [place] Chronic kidney disease, stage 4 (severe) (HCC); Hypertensive chronic kidney disease, unspecified, with chronic kidney disease stage I through stage IV, or unspecified 06/25/2024 [facility]ill [facility] [address] [phone] Rukhsana Gardiner MA from Last 3 Months Immunizations Name Administration Dates Next Due Influenza Split 02/23/2015 Influenza TIV (IM) 11/30/2015 Influenza, Quadrivalent, Preservative Free 03/07 Influenza, Unspecified 04/12/2023,03/25/2014,06/2008 Moderna SARS-COV-2 04/28/2021,09/04/2020, 021 Pneumococcal Conjugate 13-Valent 07/29/2014 Pneumococcal Polysaccharide 08/12/2021, 5,12/04/2000 Shingrix 09/01/2022 Td 12/19/1994 Tdap 08/12/2021 Zoster 07/29/2014 Family History Medical History Relation Comments Hypertension Sibling 1 Diabetes Sibling 2 Heart disease Sibling 3 Relation Status Comments Father Mother Sibling 1 Sibling 2 Sibling 3 Social History Tobacco Use Types Packs/Day Years Used Date Smoking Tobacco: Former Smokeless Tobacco: Never Tobacco Cessation:Counseling Given: Not [...] oz) 09/02/2024 1:44 P M EDT Height 170.2 cm (5' 7 ) 01/14/2019 12:00 PM EDT Body Mass Index 25.31 01/14/2019 12:00 PM EDT Plan of Treatment Upcoming Encounters Date Type Department Care Team (Late st Contact Info) Description 03/17/2025 3:00 PM EDT Office Visit [facility] [address] [place] [address] [place] [place] [phone] Arpit Bundy MD [address] [facility] [address] [place] [phone] Health Maintenance Due Date Last Done Comments Diabetes: Ophthalmology Exam 07/20/2020 Diabetes: Pedal Pulse Checked 07/20/2020 Diabetes: Sensory Foot Exam 07/20/2020 Diabetes: Visual Foot Exam 07/20/2020 Influenza Vaccine (#1) 2024 3, 03/07/2022, 11/30/2015, Additional history exists Diabetes: Hemoglobin A1C 07/25/20242 024, 01/25/2024, 10/25/2023, Additional history exists Pneumococcal Vaccine: 65+ Years Completed 08/12/2021, 03/23/2015, 07/29/2014, Additional history exists Hepatitis B Vaccine Aged Out No longe r eligible based on patient's age to complete this topic Insurance [facility] [employer] ([id number]) [place] [address] [place] [address] ([id number]) Care Teams Vault Installer Relationship Specialty Start Date End Date Name, MD Juan M [address] [place] [id number] PCP - General Internal Medicine 09/29/20
--- OUTSIDE RECORDS SUMMARY | 2024-09-04 17:10 | XMS_ITS | Encounter Summary ---
Author Organization [employer] Address [address] [facility] [address] [place] [address] Care Team Providers Care Full Stack Python Developer Name Role Phone Name, uJan M BLUE Primary Care Provider [phone] Gita Girard PharmD Unavailable [phone] Reason for Visit * Reason Comments Med Refill Encounter Details Date Type Department Care Team ([facility] st Contact Info) Description 01/29/2024 Refill [facility] [address] [place], [place] [id number] Name, MD Juan M [address] [place] [address] Social History Tobacco Use Types Packs/Day Years [...] Description 09/10/2024 11:30 AM EDT Medication Management [facility] MED[facility] [address] [place] [address] Gita Girard, PharmD [address] [place], [place] [phone] 11/04/2024 1:00 PM EDT Office Visit [facility] AD[facility] DENTAL [address] [place] [address] Cathi Saul documented as of this encounter [...] documented as of this encounter Care Teams Full Stack Python Developer Relationship Specialty Start Date End Date Name, MD Juan M [address] [place] [address] PCP - General Family Medicine 01/21/19 Gita Girard PharmD [address] [place] [address] Pharmacist Internal Medicine 07/14/22 documented as of this encounter
[2024-09-04 17:25] LABS: Alanine Aminotransferase 18 U/L (0-40); Albumin Level 4.3 g/dL (3.5-5.0); Alkaline Phosphatase 51 U/L (39-117); Anion Gap 13 (12-20); Aspartate Amino Transferase 31 U/L (5-37); Bilirubin Total 0.8 mg/dL (0.0-1.0); Blood Urea Nitrogen 47 mg/dL (9-16); Calcium 9.4 mg/dL (8.4-10.2); Carbon Dioxide 25 mmol/L (22-29); Chloride 106 mmol/L (96-108); Estimated Glomerular Filt Rate 28; Glucose Random 192 mg/dL (60-115); Lactate Dehydrogenase 260 U/L (118-273); Potassium 3.9 mmol/L (3.3-5.1); Sodium 140 mmol/L (135-145); Total Protein 7.9 g/dL (6.5-8.0)
[2024-09-05 08:13] LABS: HBS Num1 57.19 mIU/mL (0-7.99); HBsAGNum1 0.27 S/CO (0.00-0.99); HIV AB/AG Nonreactive (Nonreactive); HIV Num 1 0.06 S/CO (0.00-0.99); Hepatitis B Surface Antigen Negative (Negative); ~HepC Num1 0.14 S/CO (0.00-0.79); ~Hepatitis B Surface Antibody REACTIVE (Nonreactive); ~Hepatitis C Antibody Nonreactive (Nonreactive)
== END 2024-09-04 15:05 | disposition home or self-care (01) ==
LOC: HO.HHCL 15:04
PROVIDERS: Visit Provider Internal Medicine Geriatric Medicine
DX: R59.0 Localized enlarged lymph nodes (principal); K74.60 Unspecified cirrhosis of liver
CPT/HCPCS: 36415; 80053; 83615; 85025; 86706; 86708; 86803; 87340; 87389

== ENCOUNTER 2024-09-12 11:15 | Outpatient (AMB) | payer OTHER, SELFPAY ==
--- NOTE | 2024-09-12 11:24 | A.OFFVIS_ITS ---
Vital Signs 09/12/24 11:30 Height 5 ft 7 in Weight 165 lb 5.547 oz BMI 25.9 Respiration 18 Pulse 76 Intake Visit Reasons: Ct scan follow up Intake Note: Patient is seen in office for CT scan results, following possible abdominal hernia. Pt c/o: denies any changes, here for results CT:07/26/24 Production Sanitizer Required: No Accompanied by: Self / Same As Patient Allergies NSAIDS due to CKD Allergy (Unknown, Uncoded 09/12/24 11:30) n/a Medication List - Last Reconciled 09/12/24 by Ronni Dodge MD acetaminophen ER 650 mg PO Q12H PRN albuterol sulfate 90 mcg/actuation (Ventolin HFA) 2 puffs inhalation Q6H PRN amlodipine 2.5 mg PO QAM apixaban (Eliquis) 2.5 mg PO BID blood sugar diagnostic As directed blood-glucose meter (FreeStyle [place] Lite kit) As directed calcitriol 0.25 mcg PO Q OTHER DAY carvedilol 3.125 mg PO BID colchicine 0.6 mg PO DAILY fluticasone propionate 50 mcg/actuation 2 sprays intranasal DAILY 30 days furosemide 40 mg PO DAILY insulin aspart U-100 (Novolog FlexPen U-100 Insulin aspart) 10 units subcut DAILY@0730 insulin aspart U-100 (Novolog FlexPen U-100 Insulin aspart) 8 units subcut DAILY@1130 insulin aspart U-100 (Novolog FlexPen U-100 Insulin aspart) 12 units subcut DAILY@1730 insulin degludec (Tresiba FlexTouch U-100 insulin) 28 units subcut BEDTIME lancets As directed metolazone weekly omeprazole 20 mg PO DAILY pen needle, diabetic (BD Ultra-Fine Short Pen Needle) As directed rosuvastatin 10 mg PO DAILY spironolactone 12.5 mg PO QAM torsemide 80 mg (4 x 20 mg) PO DAILY tramadol 50 mg PO Q8H PRN HPI Comments Details: 83-year-old male patient returning for follow-up examination. He was initially evaluated on 05/07/2024 for a possible umbilical hernia. Examination however did not reveal any palpable hernia rather bilateral swelling over the rectus muscle. As the patient has a history of atrial fibrillation in his on oral anticoagulation, consideration was given to a possible rectus sheath hematoma. He returns today following a CT abdomen and pelvis which was reviewed with the patient in his family. No rectus sheath hematoma, fluid collection, hernia or other abdominal wall changes are identified on the CT. There was evidence of lymphadenopathy in a peripancreatic and retroperitoneal locations which was reviewed with the patient. Evidence of pancreatic edema was also identified. Several gallstones were noted within the gallbladder. None of these findings correlate with the physical findings of swelling in the area of rectus muscle. A copy of the report was provided to the patient. [facility] Medical History Tricuspid regurgitation Kidney disease Pleuritic chest pain Cough Hemoptysis History of CVA with residual deficit (~04/2005) History of COVID-19 (~06/2020) SDH (subdural hematoma) Essential hypertension Normally functioning cardiac pacemaker present (~2006) Atherosclerotic cardiovascular disease Hyperlipidemia GERD (gastroesophageal reflux disease) Pacemaker (~2006) Diabetes mellitus Persistent atrial fibrillation Surgical History History of heart artery stent History of craniotomy History of permanent cardiac pacemaker placement (~09/2006) Family History Father No problems noted. Mother No problems noted. Social History Household Members: None Housing: Apartment Do you presently have visiting nurse or other home services: Yes Alcohol intake: unknown Comment: able to verbalize back the need to use call perez if he needs to get OOB Patient Tobacco Use Status: Former Tobacco user Second Hand Smoke Exposure: No service: No Current occupational status: retired Review of Systems Card Reports irregular heart rhythm GI Details: Abdominal swelling Reports constipation Physical Exam Vital Signs: Last Vital Signs Pulse 76 09/12/24 11:30 Resp 18 09/12/24 11:30 BMI result Body Mass Index 25.9 Const General: no acute distress Nutritional Appearance: well nourished Orientation/consciousness: patient oriented x3 Eyes Sclerae: sclerae normal Resp Effort & Inspection: normal respiratory effort GI Other: Soft, nontender, normal bowel sounds, no rebound, guarding or rigidity. No palpable mass. Neuro General: patient oriented x3 Extrem Other: No edema Assessment & Plan Assessment & Plan (1) Rectus sheath hematoma: Code(s): S30.1XXA - Contusion of abdominal wall, initial encounter Category: Medical Qualifiers: Encounter type: initial encounter Qualified Code(s): S30.1XXA - Contusion of abdominal wall, initial encounter Plan 83-year-old male patient with a history of diabetes, atrial fibrillation, on anticoagulation found to have swelling in the abdominal wall over the rectus muscle. Workup with a CT abdomen and pelvis revealed no evidence of abdominal wall hernia, rectus sheath hematoma or other fluid collections. A copy of the report was provided to the patient. I reviewed the findings with lymphadenopathy and edema of the pancreas. He was not interested in further wo rkup. He should follow up as needed. Coding Level of Care Code Est Pt Level 3 (85164) Diagnoses Hematoma of rectus sheath, initial encounter S30.1XXA Encounter type: initial encounter
[2024-09-12 11:30] VITALS: PULSE 76; RESP 18; BMI 25.9
== END 2024-09-12 11:45 | disposition home or self-care (01) ==
LOC: HO.HGS 11:15
PROVIDERS: PCP Internal Medicine Geriatric Medicine; Visit Provider Surgery
DX: S30.1XXA Contusion of abdominal wall, initial encounter (principal)
CPT/HCPCS: 99213

== ENCOUNTER → 2024-09-12 11:15 | Outpatient (BNVA) | payer OTHER, SELFPAY | PROVIDERS: PCP Internal Medicine Geriatric Medicine; Visit Provider Surgery | DX: S30.1XXD Contusion of abdominal wall, subsequent encounter (principal) | CPT/HCPCS: 99212 ==

== ENCOUNTER 2024-09-30 10:35 | Outpatient (AMB) | payer OTHER, SELFPAY ==
--- NOTE | 2024-09-30 10:39 | A.OFFVIS_ITS ---
Vital Signs 09/30/24 10:40 Height 5 ft 7 in Weight 160 lb 14.999 oz BMI 25.2 BP 140/68 H Blood Pressure Location Rt brachial Position Sitting Pulse 72 Pulse Source Pulse Oximeter Intake Visit Reasons: 3m follow up Allergies NSAIDS due to CKD Allergy (Unknown, Uncoded 09/12/24 11:30) n/a Medication List - Last Reconciled 09/30/24 by Jon Stuart MD acetaminophen ER 650 mg PO Q12H PRN albuterol sulfate 90 mcg/actuation (Ventolin HFA) 2 puffs inhalation Q6H PRN amlodipine 2.5 mg PO QAM apixaban (Eliquis) 2.5 mg PO BID blood sugar diagnostic As directed blood-glucose meter ([place] KitchensStyle [place] Lite kit) As directed calcitriol 0.25 mcg PO Q OTHER DAY carvedilol 3.125 mg PO BID colchicine 0.6 mg PO DAILY fluticasone propionate 50 mcg/actuation 2 sprays intranasal DAILY 30 days furosemide 40 mg PO DAILY insulin aspart U-100 (Novolog FlexPen U-100 Insulin aspart) 10 units subcut DAILY@0730 insulin aspart U-100 (Novolog FlexPen U-100 Insulin aspart) 8 units subcut DAILY@1130 insulin aspart U-100 (Novolog FlexPen U-100 Insulin aspart) 12 units subcut DAILY@1730 insulin degludec (Tresiba FlexTouch U-100 insulin) 28 units subcut BEDTIME lancets As directed metolazone weekly omeprazole 20 mg PO DAILY pen needle, diabetic (BD Ultra-Fine Short Pen Needle) As directed rosuvastatin 10 mg PO DAILY spironolactone 12.5 mg PO QAM torsemide 80 mg (4 x 20 mg) PO DAILY tramadol 50 mg PO Q8H PRN HPI Comments Details: Dk returns for follow-up regarding atrial fibrillation, coronary disease and other concerns. He used to live here, then moved to [place] for some time, then moved back here. He has a history of coronary artery disease and underwent cardiac catheterization in [place] following an abnormal stress test. This showed diffuse CAD and he underwent stenting of the diagonal. He also has a history of chronic atrial fibrillation on Eliquis. He has had a stroke around 2004. He also has a history of pacemaker placement from 2006 with generator change in 2013 and again 2022. Other issues include type 2 diabetes, hypertension, dyslipidemia, chronic kidney disease. One fall in the past that led to a subdural hematoma that required drainage. Apparently, anticoagulation was briefly on hold and then resumed based on [place] records. Then, one further hospitalization for right heart failure. Then diuretics were further adjusted. He has a history of thoracic mass but declined interventions. He is concerned about continuing anticoagulation as there is bruising. Asking if he could stop. From cardiac, seems generally okay. No new concerns. Denies any chest pain or shortness of breath or palpitations or syncopal episodes extra. [facility] Medical History Tricuspid regurgitation Kidney disease Pleuritic chest pain Cough Hemoptysis History of CVA with residual deficit (~04/2005) History of COVID-19 (~06/2020) SDH (subdural hematoma) Essential hypertension Normally functioning cardiac pacemaker present (~2006) Atherosclerotic cardiovascular disease Hyperlipidemia GERD (gastroesophageal reflux disease) Pacemaker (~2006) Diabetes mellitus Persistent atrial fibrillation Surgical History History of heart artery stent History of craniotomy History of permanent cardiac pacemaker placement (~09/2006) Family History Father No problems noted. Mother No problems noted. Social History Household Members: None Housing: Apartment Do you presently have visiting nurse or other home services: Yes Alcohol intake: unknown Comment: able to verbalize back the need to use call perez if he needs to get OOB Patient Tobacco Use Status: Former Tobacco user Second Hand Smoke Exposure: No service: No Current occupational status: retired Review of Systems Const Denies weakness ENT Denies dizziness Card Denies chest pain, Denies chest pain with activity, Denies syncope, Denies rapid heart rate, Denies pedal edema, Denies edema, Denies leg edema, Denies lightheadedness, Denies palpitations, Denies dyspnea, Denies dyspnea on exertion and Denies orthopnea Resp Denies cough, Denies dyspnea and Denies dyspnea on exertion GI Denies hematochezia and Denies change in stool character Musc Denies abnormal gait, Denies muscle cramps, Denies muscle weakness, Denies numbness, Denies radiating pain into limb and Denies tingling Neuro Denies abnormal gait, Denies dizziness, Denies syncope, Denies numbness, Denies tingling and Denies weakness Endo Denies palpitations Physical Exam Vital Signs: Last Vital Signs Pulse 72 09/30/24 10:40 BP 140/68 H 09/30/24 10:40 BMI result Body Mass Index 25.2 Const General: comfortable and no acute distress Orientation/consciousness: patient oriented x3 HEENT Other: Unremarkable Head: Yes normal to inspection Neck Neck: Yes normal visual inspection Chest Chest palpation & inspection: normal inspection of the chest Resp Auscultation: clear to auscultation bilaterally Cardio Palpation: normal PMI Heart sounds: S1 normal heart sound present, S2 normal heart sound present, no gallops, no murmurs and no rubs GI Palpation (GI): Soft to palpation Back/Spine/Pelvis Other: unremarkable Skin General skin exam: no rashes or lesions noted Neuro General: patient oriented x3 Extrem General: Yes normal to inspection Psych Mental Status: mental status grossly normal Assessment & Plan Assessment & Plan (1) Atherosclerotic cardiovascular disease: Code(s): I25.10 - Atherosclerotic heart disease of [place] coronary artery without angina pectoris Category: Medical Plan: Cardiac [id number]-status post diagonal stent, KRISTIE; nonobstructive disease LAD; moderate small-vessel disease in circumflex and RCA to be medically managed Continue beta-blockers and statins. He has a history of subdural bleed. Hence no need for antiplatelet agents in addition to Eliquis. Last available LDL cholesterol 59 mg/dL. Overall, remains stable. (2) Persistent atrial fibrillation: Code(s): I48.19 - Other persistent atrial fibrillation Category: Medical Plan: On Coreg/Eliquis. He has a lot of bruising and he is asking to stop Eliquis. We can send him to evaluate for Watchman device but he is quite frail. I am not entirely clear if he is suitable candidate but EP can evaluate him. (3) Chronic right heart failure: Code(s): I50.812 - Chronic right heart failure Category: Medical Plan: Listed to be on torsemide/metolazone. No changes. Last available creatinine is 2.2. (4) Pericardial effusion: Code(s): I31.3 - Pericardial effusion (noninflammatory) Category: Medical Plan: Small pericardial effusion thought to be related to renal insufficiency. No intervention required. (5) Essential hypertension: Code(s): I10 - Essential (primary) hypertension Category: Medical Plan: Borderline high blood pressures. No changes made today. (6) SDH (subdural hematoma): Code(s): S06.5X9A - Traumatic subdural hemorrhage with loss of consciousness of unspecified duration, initial encounter Category: Medical Plan: No recurrent issues. Watchman referral as above. (7) Normally functioning cardiac pacemaker present: Onset Date: ~2006 Comment: (Medtronic SCPP - placed 2006, generator change 2013) Code(s): Z95.0 - Presence of cardiac pacemaker Category: Medical Plan: Status post generator change 09/2022. Normal function. Orders: Referrals Interventional Cardiology Referral I48.19 - Other persistent atrial fibrillation Coding Level of Care Code Est Pt Level 4 (12241) Complex EM visit Add On G2211 Diagnoses Atherosclerotic cardiovascular disease I25.10 Persistent atrial fibrillation I48.19 Chronic right heart failure I50.812 Pericardial effusion I31.3 Essential hypertension I10 SDH (subdural hematoma) S06.5X9A Normally functioning cardiac pacemaker present Z95.0
[2024-09-30 10:40] VITALS: BP 140/68; PULSE 72; BMI 25.2
--- OUTSIDE RECORDS SUMMARY | 2024-09-30 12:11 | XMS_ITS | Encounter Summary ---
Author Organization [facility] Address [address] [place] [phone] Phone Care Team Providers Care Title Officer Name Role Phone Anthony Ramirez MD Primary Care Provider Unav ailable Encounter Details Date Type Department Care Team (Late st Contact Info) Description 11/22/2016 Office Visit [facility] [address] [place], [place] [phone] Provider, MD Cindy [address] [place] [address] Social History Tobacco Use Types Packs/Day Years Used Date Smoking Tobacco: Never Assessed Sex and Gender Information Value Date Recorded Sex Assigned at Not on file Legal Sex Male 7:30 PM MDT Gender Identity Not on file Sexual Orientation Not on file documented as of this encounter Plan of Treatment Not on file documented as of this encounter Visit Diagnoses Not on filedocumented in this encounter Care Teams Title Officer Relationship Specialty Start Date End Date Anthony Ramirez MD PCP - General 07/06/16 documented as of this encounter
--- OUTSIDE RECORDS SUMMARY | 2024-09-30 12:11 | XMS_ITS | Encounter Summary ---
Author Organization [facility] Address [address] [place] [phone] Phone Care Team Providers Care Agricultural Equipment Test Engineer Name Role Phone Anthony Ramirez MD Primary Care Provider Unav ailable Encounter Details Date Type Department Care Team (Late st Contact Info) Description 11/22/2016 Office Visit [facility] [address], [place] [phone] Provider, MD Cindy [address] [place] [address] Social History Tobacco Use Types Packs/Day [...] on filedocumented in this encounter Care Teams Agricultural Equipment Test Engineer Relationship Specialty Start Date End Date Anthony Ramirez MD PCP - General 07/06/16 documented as of this encounter
--- OUTSIDE RECORDS SUMMARY | 2024-09-30 12:11 | XMS_ITS | Encounter Summary ---
Author Organization [facility] Address [address] [place] [phone] Phone Care Team Providers Care Shipping Clerk Name Role Phone Anthony Ramirez MD Primary Care Provider Unav ailable Encounter Details Date Type Department Care Team (Late st Contact Info) Description 09/19/2016 [facility] Visit [facility] [address] [place], [place] [phone] Provider, MD Cindy [address] [place] [address] Social History Tobacco Use Types Packs/Day [...] on filedocumented in this encounter Care Teams Shipping Clerk Relationship Specialty Start Date End Date Anthony Ramirez MD PCP - General 07/06/16 documented as of this encounter
--- OUTSIDE RECORDS SUMMARY | 2024-09-30 12:12 | XMS_ITS | Encounter Summary ---
Author Organization [facility] Address [address] [facility] 7t [place] [address] Care Team Providers Care Planer Mill Grader Name Role Phone Name, Juan M BLUE Primary Care Provider [phone] Gita Girard PharmD Unavailable [phone] Encounter Details Date Type Department Care Team (Late st Contact Info) Description 08/16/2022 Abstract [facility] [address] [place] [address] Gita Girard, PharmD [address] [place] [address] Social History Tobacco Use Types Packs/Day Years [...] Care Team (Late st Contact Info) Description 11/04/2024 1:00 PM EDT Office Visit [facility] [address] [place] [address] oDrys Cathi 12/12/2024 11:30 AM EDT Medication Management [facility] [address] [place] [address] Gita Girard PharmD [address] [place] [address] 12/27/2024 11:15 AM EDT Office Visit [facility] [address] [place] [address] Name, MD Juan M [address] [place], [place] documented as of this encounter Goals Goal [...] documented as of this encounter Care Teams Planer Mill Grader Relationship Specialty Start Date End Date Name, MD Juan M [address] [place] [address] [phone] PCP - General Family Medicine 01/21/19 Gita Girard PharmD [address] [place] [phone] Pharmacist Internal Medicine 07/14/22 documented as of this encounter
--- OUTSIDE RECORDS SUMMARY | 2024-09-30 12:12 | XMS_ITS ---
07/2022 Score 0 06/09/2023 Depression Answer Date Recorded [...] Description 11/04/2024 1:00 PM EDT Office Visit [facility] [address] [place], [place] [phone] Cathi Saul 12/12/2024 11:30 AM EDT Medication Management [facility] [address] [place], [place] [phone] Gita Girard, DamonD [address] [place], [place] [phone] 12/27/2024 11:15 AM EDT Office Visit [facility] [address] [place] [address] [phone] Name, MD Juan M [address] [place], [place] [phone] Health Maintenance Due Date Last Done Comments [...] 6.6( 5 2:50 PM EDT) No Gita Girard, PharmD Record your blood sugar as directed Result Component No Gita Girrad, PharmD Note: Monitor BG via CGM ensuring sensor is scanned at least once every 8 hours. Utilize manual SMBG as needed and as directed. Procedures Procedure Name Priority Date/Time Associated Diagnosis Comments LD Routine 09/04/2024 3:07 PM EDT Abdominal lymphadenopathy HIV 1/2 ANTIGEN/ANTIBODY, FOURTH GENERATION W/RFL Routine 09/04/2024 3:07 PM EDT Abdominal lymphadenopathy HEPATITIS A ANTIBODY, TOTAL Routine 09/04/2024 3:07 PM EDT Cirrhosis of liver without ascites, unspecified hepatic cirrhosis type (CMS/HCC) HEPATITIS B SURFACE ANTIBODY, QUALITATIVE Routine 09/04/2024 3:07 PM EDT Cirrhosis of liver without ascites, unspecified hepatic cirrhosis type (CMS/HCC) HEPATITIS B SURFACE ANTIGEN, EIA Routine 09/04/2024 3:07 PM EDT Cirrhosis of liver without ascites, unspecified hepatic cirrhosis type (CMS/HCC) HEPATITIS C AB W/REFL TO HCV RNA, QN, PCR Routine 09/04/2024 3:07 PM EDT Cirrhosis of liver without ascites, unspecified hepatic cirrhosis type (CMS/HCC) COMPREHENSIVE METABOLIC PANEL Routine 09/04/2024 3:07 PM EDT Abdominal lymphadenopathy CBC WITH AUTO DIFFERENTIAL Routine 09/04/2024 3:07 PM EDT Abdominal lymphadenopathy POCT GLYCATED HEMOGLOBIN, TOTAL Routine 09/04/2024 2:50 PM EDT 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) POCT GLUCOSE Routine 09/04/2024 2:37 PM EDT 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) CT ABDOMEN PELVIS WO CONTRAST Routine 07/26/2024 2:37 PM EST PROPHYLAXIS - ADULT Routine 05/01/2024 2 :00 PM EST Dental calculus Dental plaque Tartar deposits on teeth PERIODIC ORAL EVALUATION - ESTABLISHED PATIENT Routine 05/01/2024 2:00 PM EST BITEWINGS - 4 RADIOGRAPHIC IMAGES Routine 04/05/2024 3:00 PM EDT PANORAMIC RADIOGRAPHIC IMAGE Routine 09/05/2023 11:00 AM EDT LIPID PANEL, STANDARD Routine 09/16/2022 9:26 AM EDT ZZZ HISTORICAL MICROALBUMIN/CREATINI NE RATIO, RANDOM URINE Routine 04/18/2022 8:43 AM EDT from Last 3 Months or Most Recently Relevant to Health Maintenance Results * (ABNORMAL) CBC auto differential (09/04/2024 3:07 PM EDT) White Blood Count 6.4 4.8 - 10.8 X10*3/uL [facility] Red Blood Count 3.58(L) 4.60 - 5.80 X10*6/uL [facility] Hemoglobin 10.7(L) 14.0 - 18.0 g/dl [facility] Hematocrit 31.7(L) 42.0 - 52.0 % [facility] Mean Corpuscular Volume 88.5 80.0 - 98.0 fL [facility] Mean Corpuscular Hemoglobin 29.9 27.0 - 33.0 pg [facility] Mean Corpuscular HGB Conc 33.8 31.0 - 36.0 g/dl [facility] Red Cell Distribution Width 15.3 11.0 - 16.0 % [facility] Platelet Count 129(L) 160 - 400 X10*3/uL [facility] Mean Platelet Volume 9.8 9.4 - 12.4 fL [facility] Neutrophils Percent Auto 63.3 45 - 73 % [facility] Imm Gran Pct Auto 0.5(H) 0.0 - 0.4 % [facility] Lymphocytes Percent Auto 25.6 20 - 40 % [facility] Monocytes Percent Auto 8.1 2 - 11 % [facility] Eosinophils Percent Auto 2.3 0 - 4 % [facility] Basophils Percent Auto 0.2 0 - 2 % [facility] NRBC Pct Auto 0.0 0.0 - 0.2 /100WBC [facility] Neutrophils Absolute Auto 4.1 2.0 - 8.3 x10*3/uL [facility] Imm Gran Abs Auto 0.03 0.00 - 0.03 X10*3/uL [facility] Lymphocytes Absolute Auto 1.7 1.2 - 4.9 X10*3/uL [facility] Monocytes Absolute Auto 0.5 0.1 - 1.2 X10*3/uL [facility] Eosinophils Absolute Auto 0.2 0.0 - 0.4 X10*3/uL [facility] Basophils Absolute Auto 0.0 0.0 - 0.2 X10*3/uL [facility] NRBC Abs Auto 0.000 0.0 - 0.012 X10*3/uL [facility] Blood Venous blood specimen / Unknown 09/04/2024 3:07 PM EDT 09/04/2024 4:08 PM EDT us Juan M Rogers MD LAB BLOOD ORDERABLES Final Resul t Performing Organization Address [facility]/ZIP Co de Phone Number [facility] [address] [place] [phone] * Hepatitis C Antibody with Reflex to HCV, RNA, Quantitative, Real-Time PCR (09/04/2024 3:07 PM EDT) Hepatitis C Antibody Nonreactive Nonreactive [facility] Comment:Antibodies to HCV no t detected; does not exclude early acuteHCV infection. Blood Venous blood specimen / Unknown 09/04/2024 3:07 PM EDT 09/04/2024 4:08 PM EDT us Juan M Rogers MD LAB BLOOD ORDERABLES Final Resul t Performing Organization Address [facility] Co de Phone Number [facility] [address] [place] [phone] * Hepatitis A Antibody, Total (09/04/2024 3:07 PM EDT) Pathologist [facility] Hepatitis A Antibody IgG REACTIVE Nonreactive [facility] Comment:The presence of IgG anti-HAV implies past HAV infection(recent or distant) or vaccination against HAV. Blood Venous blood specimen / Unknown 09/04/2024 3:07 PM EDT 09/04/2024 4:08 PM EDT us Juan M Rogers MD LAB BLOOD ORDERABLES Final Resul t Performing Organization Address City/[facility]/ZIP Co de Phone Number [facility] [address] [place] [phone] * Hepatitis B surface antigen, EIA (09/04/2024 3:07 PM EDT) Pathologist [facility] Hepatitis B Surface Ag Negative Negative [facility] Blood Venous blood specimen / Unknown 09/04/2024 3:07 PM EDT 09/04/2024 4:08 PM EDT us Juan M Rogers MD LAB BLOOD ORDERABLES Final Resul t Performing Organization Address [facility] Co de Phone Number [facility] [address] [place] [address] [phone] * HIV-1/2 Antigen and Antibodies, Fourth Generation, with Reflexes (09/04/2024 3:07 PM EDT) Pathologist [facility] HIV AB/AG Nonreactive Nonreactive [facility] Comment:HIV-1 p24 Ag and/or HIV-1/HIV-2 Ab not detected.A test result that is nonreactive does not exclude thepossibility of exposure to or infection with HIV-1 and/orHIV-2. Nonreactive results in this assay for individualswith prior exposure to HIV-1 and/or HIV-2 may be due toantigen and antibody levels that are below the limit ofdetection of this assay.The [employer] HIV Ag/Ab Combo assay result andsupplemental assay results should be interpreted inconjunction with the patient's clinical presentation,history and other laboratory results. If the results areinconsistent with clinical evidence, additional testing issuggested to confirm the result. Blood Venous blood specimen / Unknown 09/04/2024 3:07 PM EDT 09/04/2024 4:08 PM EDT us Juan M Rogers MD LAB BLOOD ORDERABLES Final Resul t Performing Organization Address [facility] de Phone Number [facility] [address] [place] [address] [phone] * Hepatitis B Surface Antibody, Qualitative (09/04/2024 3:07 PM EDT) ~Hepatitis B Surface Antibody REACTIVE Nonreactive [facility] Comment:REACTIVE: > 11.99 mI U/mL Blood Venous blood specimen / Unknown 09/04/2024 3:07 PM EDT 09/04/2024 4:08 PM EDT us Juan M Rogers MD LAB BLOOD ORDERABLES Final Resul t Performing Organization Address [facility] Phone Number [facility] [address] [place] [address] [phone] * Lactate Dehydrogenase (LD) (09/04/2024 3:07 PM EDT) Lactate Dehydrogenase 260 118 - 273 U/L [facility] Blood Venous blood specimen / Unknown 09/04/2024 3:07 PM EDT 09/04/2024 4:08 PM EDT us Juan M Rogers MD LAB BLOOD ORDERABLES Final Resul t Performing Organization Address [facility] de Phone Number [facility] [address] [place] [phone] * (ABNORMAL) Comprehensive Metabolic Panel (09/04/2024 3:07 PM EDT) Sodium 140 135 - 145 mmol/L [facility] Potassium 3.9 3.3 - 5.1 mmol/L [facility] Chloride 106 96 - 108 mmol/L [facility] Carbon Dioxide 25 22 - 29 mmol/L [facility] Anion Gap 13 12 - 20 [facility] Urea Nitrogen (BUN) 47(H) 9 - 16 mg/dL [facility] Creatinine, Serum 2.24(H) 0.5 - 1.4 mg/dL [facility] Estimated Glomerular Filt Rate 28 [facility] Comment:Chronic Kidney Disea se: Estimated GFR < 60 mL/min/1.34c3Matokl Kidney Disease: Estimated GFR < 15 mL/min/1.73m2 Glucose 192(H) 60 - 115 mg/dL [facility] Calcium 9.4 8.4 - 10.2 mg/dL [facility] Bilirubin, Total 0.8 0.0 - 1.0 mg/dL [facility] Aspartate Amino Transferase 31 5 - 37 U/L [facility] Alanine Aminotransferase 18 0 - 40 U/L [facility] Total Protein 7.9 6.5 - 8.0 g/dL [facility] Albumin Level 4.3 3.5 - 5.0 g/dL [facility] Alkaline Phosphatase 51 39 - 117 U/L [facility] Blood Venous blood specimen / Unknown 09/04/2024 3:07 PM EDT 09/04/2024 4:08 PM EDT us Juan M Name LAB BLOOD ORDERABLES Final Resul t [facility] [address] [place] [phone] * (ABNORMAL) POCT HGB A1C (09/04/2024 2:50 PM EDT) Hemoglobin A1C 6.6(A) 4.0 - 6.0 % QC Media Lot # [id number] Lot# Expiration Date ,426 Blood 09/04/2024 2:50 PM EDT us Juan M Name POINT OF CARE TEST ENTER/EDIT OR DERABLES Final Result * (ABNORMAL) POCT Glucose (09/04/2024 2:37 PM EDT) Glucose Blood, POC 214(A) 60 - 200 mg/dL QC Media Lot # [id number] Lot# Expiration Date 82,625 Blood Capillary blood specimen / Unknown 09/04/2024 2:37 PM EDT us Juan M Name POINT OF CARE TEST ENTER/EDIT OR DERABLES Final Result * CT Abdomen Pelvis w/o Contrast (07/26/2024 2:37 PM EST) Anatomical Region Laterality Modality Body, Pelvis, Abdomen Computed T omography 07/26/2024 2:37 PM EST Narrative 07/26/2024 3:37 PM EST ? [facility] ?[address] ?[place] [address] ? CT Scan Report ? Signed ? Patient: Dk Sepulveda ?MR#: [id number] ?? [id number] ? : 1940 ?Acct:[id number] ? Age/Sex: 83 / M ?ADM Date: 07/26/24 ? Loc: HO.CT ? Attending Dr: Ronni Dodge MD ? Ordering Physician: Ronni Dodge MD ?? Date of Service: 07/26/24 ?? Procedure(s): CT abdomen pelvis wo IV con ?? Accession Number(s): [id number] ? cc: Ronni Dodge MD; Name,Juan M BLUE ? Report Number: ?? [id number]: Total DLP = ??351.00 mGy-cm ?? EXAMINATION: [...] DD/ 1437 ? TD/TT: 07/26/24 1450 ? Export Freight Manager: ? Procedure Note Donvalerieter, Image - 07/26/[address] [place] [address] [address] Scan Report Signed Patient: Karlo Sepulveda#: [id number] : 1941Acct:[id number] Age/Sex: 83 / MADM Date: 07/26/24 Loc: HO.CT Attending Dr: Ronni Dodge MD Ordering Physician: Ronni Dodge MD Date of Service: 07/26/24 Procedure(s): CT abdomen pelvis wo IV con Accession Number(s): [id number] cc: Ronni Dodge MD; Name,Juan M BLUE Report Number: [id number]: Total DLP = 351.00 mGy-cm EXAMINATION: CT [...] Uri Branch MD 07/26/2024 03:34 PM EST RP Dictated By: Uri Dowling MD Signed By: <Electronically signed by Uri Aggarwal MDin OV> 07/26/24 1534 DD/ 1437 TD/TT: 07/26/24 1450 Export Freight Manager: [facility] External Provider IMG CT PROCEDURES Final Result * Lipid Panel, Standard (09/16/2022 9:26 AM EDT) Triglycerides 134 mg/dL [facility] Comment:Desirable Triglyceri de: less than 150 mg/dLBorderline High Triglyceride 150-199 mg/dLHigh Triglyceride: 200-499 mg/dLVery High Triglyceride: greater than or equal to 5OO mg/dL Cholesterol 114 mg/dL [facility] Comment:Desirable Cholestero l: less than 200 mg/dLBorderline High Cholesterol: 200-239 mg/dLHigh Cholesterol: greater than 239 mg/dL LDL Cholesterol Calculated 59 mg/dl [facility] Comment:Desirable LDL: less than 100 mg/dLNear Optimal/Above Optimal LDL: 110- 129 mg/dLBorderline High LDL: 130-159 mg/dLHigh LDL: 160-189 mg/dLVery High LDL: greater than or equal to 190 mg/dL HDL Cholesterol 29 mg/dL [facility] Comment:Desirable HDL: great er than 40 mg/dL Note: This HDL assay may give artificially low results in patients with liver disease. 09/16/2022 9:26 AM EDT 09/16/2022 9:26 AM EDT [facility] External Provider LAB BLO OD ORDERABLES Final Result [facility] [address] [place] [phone] * (ABNORMAL) MICROALBUMIN/CREATININE RATIO, RANDOM URINE [...] Bundy MD HISTORICAL/NON ORDERABLE LABS Final Result [facility] from Last 3 Months or Most Recently Relevant to Health Maintenance Insurance [address] [place] [phone] [facility] [address] [place] [phone] DENTAL - [facility] [address] [place] [phone] Advance Directives Documents on File Type Date Recorded Patient Plastic Battery Assembler Expl anation HealthCare Proxy 06/28/2023 HEALTHCARE PROXY 06/13/23 Care Teams Dog Hair Clipper Relationship Specialty Start Date End Date Name, MD Juan M [address] [place] [address] PCP - General Family Medicine 01/21/19 Gita Girard PharmD [address] [place] [address] Pharmacist Internal Medicine 07/14/22
--- OUTSIDE RECORDS SUMMARY | 2024-09-30 12:12 | XMS_ITS | Encounter Summary ---
Author Organization [facility] Address [address] [place] [phone] Phone Care Team Providers Care Jig Maker Name Role Phone Anthony Ramirez MD Primary Care Provider Unav ailable Encounter Details Date Type Department Care Team (Late st Contact Info) Description 09/19/2016 Office Visit [facility] [address] [place], [place] [phone] Provider, MD Cindy [address] [place] [address] Social History Tobacco Use Types Packs/Day [...] on filedocumented in this encounter Care Teams Jig Maker Relationship Specialty Start Date End Date Anthony Ramirez MD PCP - General 07/06/16 documented as of this encounter
--- OUTSIDE RECORDS SUMMARY | 2024-09-30 12:12 | XMS_ITS | Encounter Summary ---
Author Organization [employer] Address [address] [facility] 7t [place] [address] Care Team Providers Care Haul Driver Name Role Phone Name, Juan M BLUE Primary Care Provider [phone] Gita Girard PharmD Unavailable [phone] Reason for Visit * Reason Comments Med Refill Encounter Details Date Type Department Care Team (Late st Contact Info) Description 06/14/2023 Refill [facility] [address] [place], [place] [phone] Name, MD Juan M [address] [place] [address] Chronic cough; Hypertension, unspecified type; Diabetes mellitus [...] Description 11/04/2024 1:00 PM EDT Office Visit [facility] [address] [place] [address] Cathi Saul 12/12/2024 11:30 AM EDT Medication Management [facility] [address] [place] [phone] Gita Girard PharmD [address] [place] [phone] 12/27/2024 11:15 AM EDT Office Visit [facility] [address] [place] [address] [phone] Name, MD Juan M [address] [place] [address] documented as of this encounter Goals Goal Patient Goal Type Associated Problems Recent Progress Patient-Stated? Author Patient will adhere to medication regimen General No Gita Girard, DamonD Note: Take medications, including insulin, as prescribed. [...] type Diabetes mellitus type 2 with complications ([facility]) Right-sided low back pain without sciatica, unspecified chronicity Insomnia, unspecified type documented in this encounter Additional Health Concerns Assessment Noted Time PHQ-9 Depression Total Score: 0 06/08/20 22 9:37 AM EST documented as of this encounter Care Teams Haul Driver Relationship Specialty Start Date End Date Name, MD Juan M [address] [place] [address] PCP - General Family Medicine 01/21/19 Gita Girard PharmD [address] [place] [address] Pharmacist Internal Medicine 07/14/22 documented as of this encounter
--- OUTSIDE RECORDS SUMMARY | 2024-09-30 12:12 | XMS_ITS | Encounter Summary ---
Author Organization [employer] [facility] Address [address] [facility] 7t [place] [address] Care Team Providers Care Frame Pulley Mortising Machine Operator Name Role Phone Name, Juan M BLUE Primary Care Provider [phone] Gita Girard PharmD Unavailable [phone] Reason for Visit * Reason Comments Med Refill Encounter Details Date Type Department Care Team (Late st Contact Info) Description 09/25/[address] [facility] [address] [place], [place] [phone] Name, MD Juan M [address] [place] [address] Chronic cough; Hypertension, unspecified type; Diabetes mellitus [...] Description 11/04/2024 1:00 PM EDT Office Visit [facility] ADULT [facility] [address] [place] [address] Saul Cathi 12/12/2024 11:30 AM EDT Medication Management [facility] [address] [place] [address] Gita Girard PharmBarrie [address] [place] [phone] 12/27/2024 11:15 AM EDT Office Visit [facility] [address] [place] [phone] Juan [place] [address] documented as of this encounter Goals Goal Patient Goal Type Associated Problems Recent Progress Patient-Stated? Author Patient will adhere to medication regimen General No Gita Girard PharmBarrie Note: Take medications, including insulin, as prescribed. [...] type Diabetes mellitus type 2 with complications ([facility]) Right-sided low back pain without sciatica, unspecified chronicity Insomnia, unspecified type documented in this encounter Additional Health Concerns Assessment Noted Time PHQ-9 Depression Total Score: 0 06/08/20 22 9:37 AM EST documented as of this encounter Care Teams Frame Pulley Mortising Machine Operator Relationship Specialty Start Date End Date Juan M Rogers MD [address] [place] [address] PCP - General Family Medicine 01/21/19 Gita Girard, DamonD [address] [place] [address] Pharmacist Internal Medicine 07/14/22 documented as of this encounter
--- OUTSIDE RECORDS SUMMARY | 2024-09-30 12:12 | XMS_ITS | Encounter Summary ---
Author Organization [facility] Address [address] [place] [address] Phone Care Team Providers Care Plastics Design Engineer Name Role Phone Anthony Ramirez MD Primary Care Provider Unav ailable Encounter Details Date Type Department Care Team (Late st Contact Info) Description 04/23/2018 Office Visit [facility] [address] [place], [place] [phone] Provider, MD Cindy [address] [place] [phone] Social History Tobacco Use Types Packs/Day [...] on filedocumented in this encounter Care Teams Plastics Design Engineer Relationship Specialty Start Date End Date Anthony Ramirez MD PCP - General 07/06/16 documented as of this encounter
--- OUTSIDE RECORDS SUMMARY | 2024-09-30 12:12 | XMS_ITS | Encounter Summary ---
Author Organization [employer] Address [address] [facility] 7t [place] [address] Care Team Providers Care Womens Volleyball Coach Name Role Phone Name, Juan M BLUE Primary Care Provider [phone] Gita Girard PharmD Unavailable [phone] Encounter Details Date Type Department Care Team ([facility] st Contact Info) Description 05/17/2023 Telephone [facility] MEDICINE [address] [place], [place] [phone] Name, MD Juan M [address] [place] [address] Social History Tobacco Use Types Packs/Day Years [...] Description 11/04/2024 1:00 PM EDT Office Visit [facility] ADULT DENTAL [address] [place] [address] Cathi Saul 12/12/2024 11:30 AM EDT Medication Management [facility] MEDICINE [address] [place] [address] Gita Girard, PharmD [address] [place] [address] 12/27/2024 11:15 AM EDT Office Visit [facility] MEDICINE [address] [place] [address] Name, MD Juan M [address] [place] [address] documented as of this encounter Goals Goal [...] documented as of this encounter Care Teams Womens Volleyball Coach Relationship Specialty Start Date End Date Name, MD Juan M [address] [place] [address] PCP - General Family Medicine 01/21/19 Gita Girard, Kita [address] [place] [address] Pharmacist Internal Medicine 07/14/22 documented as of this encounter
--- OUTSIDE RECORDS SUMMARY | 2024-09-30 12:12 | XMS_ITS | Encounter Summary ---
Author Organization [employer] Address 75 [facility] 7t [place] [address] Care Team Providers Care Cocoa Room Operator Name Role Phone Name, Juan M BLUE Primary Care Provider [phone] Gita Girard PharmD Unavailable [phone] Reason for Visit * Reason Comments Med Refill Encounter Details Date Type Department Care Team ([facility] st Contact Info) Description 01/29/2024 Refill [facility] [address] [place], [place] [phone] Name, MD Juan M [address] [place] [address] Social History Tobacco Use Types Packs/Day Years [...] Description 11/04/2024 1:00 PM EDT Office Visit [facility] ADULT DENTAL [address] [place] [address] Cathi Saul 12/12/2024 11:30 AM EDT Medication Management [facility] MEDICINE [address] [place] [address] Gita Girard PharmD [address] [place] [address] 12/27/2024 11:15 AM EDT Office Visit [facility] MEDICINE [address] [place] [address] 216[address] Name, MD Juan M [address] [place] [address] documented as of this encounter Goals Goal Patient Goal Type Associated Problems Recent Progress Patient-Stated? Author Patient will adhere to medication regimen General No Gita Girard PharmD Note: Take medications, including insulin, as prescribed. Hemoglobin A1c < 8 Result Component 6.6( 2:50 PM EDT) No Gita Girard Kita Record your blood sugar as directed Result [...] documented as of this encounter Care Teams Cocoa Room Operator Relationship Specialty Start Date End Date Name, MD Juan M [address] [place] [address] PCP - General Family Medicine 01/21/19 Gita Girard PharmD [address] [place] [address] Pharmacist Internal Medicine 07/14/22 documented as of this encounter
--- OUTSIDE RECORDS SUMMARY | 2024-09-30 12:12 | XMS_ITS | Encounter Summary ---
Author Organization [employer] Address [address] [place] [address] Phone Care Team Providers Care Laboratory Technologist Name Role Phone Anthony Ramirez MD Primary Care Provider Unav ailable Encounter Details Date Type Department Care Team (Late st Contact Info) Description 01/17/2020 Abstract [facility] [address] [place], [place] [phone] Provider, MD Cindy [address] [place] [address] Social History Tobacco Use Types Packs/Day [...] on filedocumented in this encounter Care Teams Laboratory Technologist Relationship Specialty Start Date End Date Anthony Ramirez MD PCP - General 07/06/16 documented as of this encounter
--- OUTSIDE RECORDS SUMMARY | 2024-09-30 12:12 | XMS_ITS | Encounter Summary ---
Author Organization [employer] Address [address] [place] [address] Phone Care Team Providers Care Biology Intern Name Role Phone Anthony Ramirez MD Primary Care Provider Unav ailable Encounter Details Date Type Department Care Team (Late st Contact Info) Description 10/24/2017 Office Visit [facility] [address] [place], [place] [phone] Provider, MD Cindy [address] [place] [address] Social History Tobacco Use Types Packs/Day [...] on filedocumented in this encounter Care Teams Biology Intern Relationship Specialty Start Date End Date Anthony Ramirez MD PCP - General 07/06/16 documented as of this encounter
--- OUTSIDE RECORDS SUMMARY | 2024-09-30 12:12 | XMS_ITS | Encounter Summary ---
Author Organization [employer] Address [address] [place] [address] Phone Care Team Providers Care Hha Name Role Phone Anthony Ramirez MD Primary Care Provider Unav ailable Encounter Details Date Type Department Care Team (Late st Contact Info) Description 04/27/2018 Office Visit [facility] [address] [place], [place] [phone] Provider, MD Cindy [address] [place] [address] Social History Tobacco Use Types Packs/Day [...] on filedocumented in this encounter Care Teams Hha Relationship Specialty Start Date End Date Anthony Ramirez MD PCP - General 07/06/16 documented as of this encounter
--- OUTSIDE RECORDS SUMMARY | 2024-09-30 12:12 | XMS_ITS | Encounter Summary ---
Author Organization [employer] Address 75 [facility] 7t [place] [address] Care Team Providers Care Byproduct Engineer Name Role Phone Name, Juan M BLUE Primary Care Provider [phone] Gita Girard PharmD Unavailable [phone] Encounter Details Date Type Department Care Team ([facility] st Contact Info) Description 12/13/2023 Telephone [facility] [address] [place] [address] Kenny Hopson, RONDAS [address] [place] [address] Social History Tobacco Use Types Packs/Day Years [...] 1:00 PM EDT Office Visit [facility] ADULT DENTAL [address] [place] [address] Cathi Saul 12/12/2024 11:30 AM EDT Medication Management [facility] MEDICINE [address] [place] [address] Gita Girard, PharmD [address] [place] [address] 12/27/2024 11:15 AM EDT Office Visit [facility] MEDICINE [address] [place] [address] Name, MD Juan M [address] [place] [address] documented as of this encounter Goals Goal [...] documented as of this encounter Care Teams Byproduct Engineer Relationship Specialty Start Date End Date Name, MD Juan M [address] [place] [address] PCP - General Family Medicine 01/21/19 Gita Girard PharmD [address] [place] [address] Pharmacist Internal Medicine 07/14/22 documented as of this encounter
--- OUTSIDE RECORDS SUMMARY | 2024-09-30 12:12 | XMS_ITS | Encounter Summary ---
Author Organization [facility] Address [facility] [address] [place] [address] Phone Care Team Providers Care Ms Sql Developer Name Role Phone Name, Juan M BLUE Primary Care Provider [phone] Reason for Visit * Reason Comments Med Refill Encounter Details Date Type Department Care Team ([facility] Contact Info) Description 02/14/2022 Refill [facility] [address] [place] [address] Colt Alfonso MD Social History [...] Upcoming Encounters Date Type Department Care Team ([facility] Contact Info) Description 03/17/2025 3:00 PM EDT Office Visit [facility] [address] [place] [address] [place] [phone] Arpit Bundy MD [address] [facility] [address] [place] [phone] documented as of this encounter Visit Diagnoses Not on filedocumented in this encounter Care Teams Ms Sql Developer Relationship Specialty Start Date End Date Name, MD Juan M [address] [place] [address] PCP - General Internal Medicine 09/29/20 documented as of this encounter
--- OUTSIDE RECORDS SUMMARY | 2024-09-30 12:12 | XMS_ITS | Encounter Summary ---
Author Organization [employer] Address [address] [place] [address] Phone Care Team Providers Care Sex Therapist Name Role Phone Anthony Ramirez MD Primary Care Provider Unav ailable Encounter Details Date Type Department Care Team (Late st Contact Info) Description 06/27/2017 Office Visit [facility] [address] [place], [place] [phone] Provider, MD Cindy [address] [place] [address] Social History Tobacco Use Types Packs/Day [...] on filedocumented in this encounter Care Teams Sex Therapist Relationship Specialty Start Date End Date Anthony Ramirez MD PCP - General 07/06/16 documented as of this encounter
--- OUTSIDE RECORDS SUMMARY | 2024-09-30 12:12 | XMS_ITS | Data Portability ---
Author Organization [employer] Address [address] [place] [address] Care Team Providers Care Appraiser Personal Property Name Role Phone [facility] OTHER [facility] OTHER Assessment Encounter Date Assessment Date Assessment LastModified by Organization Details LastModified Time 01/23/2024 01/23/2024 As noted, we were called to see this patient regarding concerns of rash.Evaluation in the field was performed by my diesel crane operator colleague, as noted above, I provided real-time [...] serious symptoms, particularly open lesions or pain [email or web address] Not available 01/23/2024 10:53:55 06/21/2024 06/21/2024 I have reviewed and agree with the assessment and plan as documented by the diesel crane operator. I provided real-time medical direction for this [...] in the field was performed by my diesel crane operator colleague, as noted above, I provided real-time direction and supervision for this visit. The evaluation revealed An 83 year old male with a past medical history of Hypertension, Chronic Kidney Disease, Diabetes Mellitus Type 2, Coronary Artery Bypass Grafting (CABG), Coronary Artery Disease, and a pacemaker on [facility] who presents with sore throat and cough. [...] not a candidate for Paxlovid pt on [facility] Primary care, consider f/u clinical status Disposition: [...] serious symptoms, particularly SOB or chest pain [email or web address] Not available 07/15/2024 20:49:23 Plan of Treatment Reminders Order Date Submit Date Provider Last Modified By Organization Details Last Modified Time Details Appointments None recorded. Lab rapid SARS CoV 2 Ag, QL IA, respiratory specimen 2024 025 [email or web address], [address] 20:20:28 rapid flu (A+B) 2024 025 [email or web address], [address] 5 20:20:28 rapid strep group A, throat 2024 025 [email or web address] 7 [facility], [address] [place] [address], [id number] 5 20:20:28 Referral None recorded. Procedures None recorded. Surgeries None recorded. Imaging None recorded. Medication Orders clotrimazol e 1 % topical cream 2023 024 [facility], [address] [place] [address], [id number], 4 10:46:07 Patient TargetsNo targets recorded. Patient [...] Name and Address Organization Details Recorded Time 57306 ibuprofen medicatio n Not available Not available [...] /min 149 mm[Hg] 63 mm[Hg] Not Available [employer] 4 10:41:48 Date Recorded Body temperature Respiratory rate Body height Heart rate Oxygen saturation Oxygen saturation in Arterial blood by Pulse oximetry Body weight Systolic blood pressure Diastolic blood pressure Provider Name and Address Organization Details Last Updated DateTime 5 98.7 [degF] 19 /min 170.18 cm 81 /min 99 % 99 % 58893.0 88 g 166 mm[Hg] 74 mm[Hg] Not Available [employer] 5 18:23:39 Date Recorded Heart rate Oxygen saturation Oxygen saturation in Arterial blood by Pulse oximetry Body height Respiratory rate Body temperature Body weight Systolic blood pressure Diastolic blood pressure Provider Name and Address Organization Details Last Updated DateTime 5 88 /min 99 % 99 % 170.18 cm 18 /min 98.7 [degF] 04513.6 8 g 162 mm[Hg] 81 mm[Hg] Not Available [facility] - production 20:17:40 Social History None recorded. Functional Status None recorded. Mental Status None recorded. Family History Nothing Reported. Medical History No medical history recorded. Past Encounters Encounter ID Performer Location Encounter Start Date Encounter Closed Date Diagnosis/Indication Diagnosis SNOMED-CT Code Diagnosis ICD10 Code Diagnosis Note [id number] Reagan Rodríguez MD [facility] [address] [place] [phone] 01/23/2024 10:41:42 01/23/2024 11:11:17 Tinea cruris 990463533 B35.6 isolated to groin, plan for topical antifungal s [id number] Isatu Medeiros MD [facility] [address] [place] [phone] 06/21/2024 18:23:38 06/21/2024 22:05:46 Sore nipple [id number] N64.59 [id number] JANET STUART MD [facility] [address] [place] [phone] 07/15/2024 20:17:33 07/15/2024 21:31:59 Acute COVID-19 5546023257 U07.1 Health Concerns Section Related Observation LastModified by Organization Detai ls LastModified Time None Recorded Concern Status LastModified by Organization Details LastModified Time None Recorded Advance Directives Directive None Recorded Payers Encounter Date Sequence Insurance Name Policy Number Policy Willingham Covered Member ID Willingham Member ID Guarantor Name 01/23/2024 1 [facility] [employer] - DOS ON OR AFTER 2022 - DUAL ELIGIBLE - SHELTER OPTIONS AND ONE CARE (MEDICARE REPLACEMENT/ADV ANTAGE - HMO) Dk Sepulveda [id number] Dk Sepulveda 06/21/2024 1 [facility] [employer] [employer] - DOS ON OR AFTER 2022 - DUAL ELIGIBLE - SHELTER OPTIONS AND ONE CARE (MEDICARE REPLACEMENT/ADV ANTAGE - HMO) Dk Sepulveda [id number] Dk Sepulveda 07/15/2024 1 [facility] [employer] - DOS ON OR AFTER 2022 - DUAL ELIGIBLE - SHELTER OPTIONS AND ONE CARE (MEDICARE REPLACEMENT/ADV ANTAGE - HMO) Dk Sepulveda [id number] Dk [employer] Notes Date Note Type Note Provider Name and Address Organization Details Recorded Time 01/23/2024 text/html HPI: Patient with complaints of rash inner thighs and scrotum area. RESIDENT BUYER reports flat red like a jig saw puzzle no bleeding. ...................... ...................... ...................... ...................... ...................... ...................... ......... CRC Nurse Triage Notes (Asia Davenport): Chief Complaints: Rash PMH: Diabetes, Hypertension Other Allergies: NSAIDS Comments: [facility] RN DID NOT NEED FURTHER INFO 1999: Unable to reach member (2 separate attempts made) to reschedule appointment d/t capacity issues. Member called with [employer] sign language interpreter services. VM left by american sign language interpreter explaining to member that he would be rescheduled for evaluation tomorrow, 01/22/24. Education provided on the response time and the member was advised to monitor reported s/s and seek emergency treatment if needed. ...................... ...................... ...................... ...................... ...................... ...................... ......... Psychologist Experimental Note From Contreras Wheatley: Pt reports several days of itchy rash in his inner thighs/groin. Pt denies drainage, f/n/v/d. Pt is alert, NAD. VSS. Afebrile. Non focal neuro exam. Normal gait. Bilateral erythema and smell c/w cutaneous candidiasis. C to send rx to pharmacy. Pt to f/u with PCP. ...................... ...................... ...................... ...................... ...................... ...................... ......... Disposition: Fulfilled Reagan Rodríguez MD [address] [place] [address],[address], [place], [phone], [employer] 01/23/2024 10:55:06 06/21/2024 text/html HPI: Patient reports [...] ...................... ...................... ...................... ...................... ...................... ...................... ......... Psychologist Experimental Note From Maribel Arcos: Pt chief complaint [...] 4/10. Pt CAOX4 with a GCS of 15.[facility] isatu medeiros consulted.Pt informed of possible chaffing of the area. Pt I aguirre to use lotion/ Vaseline on the area for a protective barrier as well as to wear less abrasive material on his upper body.Pt told to co tact his pcp if pain persists after x1 week of [facility] visit. Pt educated on red flag S&S and told to seek medical assistance if any present. ...................... ...................... ...................... ...................... ...................... ...................... ......... [facility] Consulted: Isatu Medeiros ...................... ...................... ...................... ...................... ...................... ...................... ......... Disposition: Fulfilled Isatu Medeiros MD [address] [place] [address],[address], [place], [phone] [employer] 06/21/2024 19:19:21 07/15/2024 text/html CRC Nurse Triage [...] (CABG), Coronary Artery Disease, OtherPMH Reviewed at 07/15/2024:17Allergies Reviewed at 07/15/2024:17Comments: Other PMH: PacemakerSymptoms of cough, sore throat and weakness starting 2 days ago. Temp 98.4 today. Cough is non-productive. Patient has nasal congestion. Denies chest pain or shortness of breath. Taking Tylenol as needed. last dose at 1030am today. Education provided on the response time and the member was advised to monitor reported s/s and seek emergency treatment if needed. Psychologist Experimental Organization Information for [facility] [employer] Legal Name: [employer].?Address: [address] [place] [address], Medical Director: Nando Reyes [facility] No.: [id number] Psychologist Experimental POC Test Results from [facility] Rapid COVID antigen (20:14:15)COVID: + Rapid influenza antigen (20:14:15)Flu: - Rapid strep test (20:14:16)Strep: - ...................... ...................... ...................... ...................... ...................... ...................... ......... Psychologist Experimental Note From [facility]: SC1 dispatched to the above address for the pt reporting a sore throat since Monday. The pt was called through the [employer] system and he came from the 3rd [...] ...................... ...................... ...................... ...................... ...................... ...................... ......... [facility] Consulted: Janet Stuart ...................... ...................... ...................... ...................... ...................... ...................... ......... Disposition: Fulfilled JANET STUART MD [address] [facility],[address], [place], [address], [employer] 07/15/2024 20:50:13
--- OUTSIDE RECORDS SUMMARY | 2024-09-30 12:12 | XMS_ITS | Encounter Summary ---
Author Organization [employer] Address [address] [place] [address] Phone Care Team Providers Care Shuttle Bus Driver Name Role Phone Anthony Ramirez MD Primary Care Provider Unav ailable Encounter Details Date Type Department Care Team (Late st Contact Info) Description 08/20/2018 Office Visit [facility] [address] [place], [place] [phone] Provider, MD Cindy [address] [place] [address] Social History Tobacco Use Types Packs/Day [...] on filedocumented in this encounter Care Teams Shuttle Bus Driver Relationship Specialty Start Date End Date Anthony Ramirez MD PCP - General 07/06/16 documented as of this encounter
--- OUTSIDE RECORDS SUMMARY | 2024-09-30 12:12 | XMS_ITS | Clinical Summary ---
Author Organization [employer] Address [address] [place] [address] Phone Care Team Providers Care Business Process Analyst Name Role Phone Anthony Ramirez MD Primary Care Provider Unav ailable Medications amLODIPine (NORVASC) 5 MG tablet 1 tab(s) [...] kidney disease, stage 3 (moderate) 08/08 Immunizations Immunization Administration Dates Next Due Influenza TIV (IM) [...] of Treatment Not on file Care Teams Business Process Analyst Relationship Specialty Start Date End Date Anthony Ramirez MD PCP - General 07/06/16
--- OUTSIDE RECORDS SUMMARY | 2024-09-30 12:12 | XMS_ITS | Encounter Summary ---
Author Organization [employer] Address 75 [facility] 7t [place] [address] Care Team Providers Care Pad Machine Offbearer Name Role Phone Name, Juan M BLUE Primary Care Provider [phone] Gita Girard PharmD Unavailable [phone] Reason for Visit * Reason Comments Med Refill Encounter Details Date Type Department Care Team (Late st Contact Info) Description 07/13/2023 Refill [facility] [address] [place], [place] [phone] Pia Berrios DO [address] [place] [address] Social History Tobacco Use Types Packs/Day Years [...] Description 11/04/2024 1:00 PM EDT Office Visit [facility] ADULT DENTAL [address] [place] [address] Cathi Saul 12/12/2024 11:30 AM EDT Medication Management [facility] MED[facility] [address] [place] [address] Gita Girard PharmD [address] [place] [address] 12/27/2024 11:15 AM EDT Office Visit [facility] [address] [place] [address] Name, MD Juan M [address] [place] [address] documented as of this encounter Goals Goal [...] documented as of this encounter Care Teams Pad Machine Offbearer Relationship Specialty Start Date End Date Name, MD Juan M [address] [place] [address] PCP - General Family Medicine 01/21/19 Gita Girard PharmD [address] [place] [address] Pharmacist Internal Medicine 07/14/22 documented as of this encounter
--- OUTSIDE RECORDS SUMMARY | 2024-09-30 12:12 | XMS_ITS | Encounter Summary ---
Author Organization [employer] Address 75 [facility] 7t [place] [address] Care Team Providers Care Truck Driving Instructor Name Role Phone Name, Juan M BLUE Primary Care Provider [phone] Gita Girard PharmD Unavailable [phone] Reason for Visit * Reason Comments Med Refill Encounter Details Date Type Department Care Team (Late st Contact Info) Description 07/17/2022 Refill [facility] [address] [place] [address] Name, MD Juan M [address] [place] [address] Social History Tobacco Use Types Packs/Day Years [...] Description 11/04/2024 1:00 PM EDT Office Visit [facility] ADULT D[facility] [address] [place] [address] Cathi Saul 12/12/2024 11:30 AM EDT Medication Management [facility] MED[facility] [address] [place] [address] Gita [place] [address] 12/27/2024 11:15 AM EDT Office Visit [facility] [address] [facility] [place] [address] Name, MD Juan M [place], [place] documented as of this encounter Goals [...] documented as of this encounter Care Teams Truck Driving Instructor Relationship Specialty Start Date End Date Name, MD Juan M [place], [place] PCP - General Family Medicine 01/21/19 Gita Girard PharmD [place], [place] Pharmacist Internal Medicine 07/14/22 documented as of this encounter
--- OUTSIDE RECORDS SUMMARY | 2024-09-30 12:12 | XMS_ITS | Clinical Summary ---
Author Organization [facility] Address [facility] [address] [place] [address] Phone Care Team Providers Care Correspondence Coordinator Name Role Phone Name, Juan M BLUE Primary Care Provider [phone] Allergies Active Allergy Reactions Criticality Noted Date [...] tablet 2 3 Active ergocalciferol 1.25 MG (71542 UT) capsule TAKE 1 CAPSULE BY MOUTH [...] Only [facility] [address] [place] [address] Arpit Bundy MD Stage 3b chronic kidney disease (HCC); Renal osteodystrophy; Chronic kidney disease, stage 4 (severe) (HCC); Essential hypertension 09/02/2024 1:45 PM EDT Office Visit [facility] [address] [place] [address] Arpit Bundy MD Stage 3b chronic kidney disease (HCC) (Primary Dx); Renal osteodystrophy; Chronic kidney disease, stage 4 (severe) (HCC); Essential hypertension from Last 3 Months Immunizations Immunization Administration Dates Next Due Influenza Split 02/23/2015 [...] Visit [facility] [address] [place] [address] Arpit Bundy MD 0[address] [facility] [address] [place] [address] Health Maintenance Due Date Last Done Comments Diabetes: Ophthalmology Exam 07/20/2020 Diabetes: Pedal Pulse Checked 07/20/2020 Diabetes: Sensory Foot Exam 07/20/2020 Diabetes: Visual Foot Exam 07/20/2020 Diabetes: Hemoglobin A1C 07/25/2024 024, 01/25/2024, 10/25/2023, Additional history exists Influenza Vaccine (Season Ended) 2025 04/12/2023, 03/07/2022, 11/30/2015, Additional history exists Pneumococcal Vaccine: 50+ Years Completed 08/12/2021, 03/23/2015, 07/29/2014, Additional history exists Pneumococcal Vaccine: Peds (0 to 5 Years) and At-Risk Patients (6 to 49 Years) Discontinued 08/12/2021, 03/23/2015, 07/29/2014, Additional history exists Hepatitis B Vaccine Aged Out No longe r eligible based on patient's age to complete this topic Insurance [facility] ([id number]) [facility] ([id number]) LISA FORD [id number] Care Teams Correspondence Coordinator Relationship Specialty Start Date End Date Name, MD Juan M [address] [place] [address] [phone] PCP - General Internal Medicine 09/29/20
--- OUTSIDE RECORDS SUMMARY | 2024-09-30 12:12 | XMS_ITS | Encounter Summary ---
Author Organization [facility] Address [address] [place] [address] Phone Care Team Providers Care Traction Power Engineer Name Role Phone Anthony Ramirez MD Primary Care Provider Unav ailable Encounter Details Date Type Department Care Team (Late st Contact Info) Description 08/06/2018 Office Visit [facility] [address] [place], [place] [phone] Provider, MD Cindy [address] [place] [address] Social History Tobacco Use Types Packs/Day [...] on filedocumented in this encounter Care Teams Traction Power Engineer Relationship Specialty Start Date End Date Anthony Ramirez MD PCP - General 07/06/16 documented as of this encounter
--- OUTSIDE RECORDS SUMMARY | 2024-09-30 12:12 | XMS_ITS | Encounter Summary ---
Author Organization [facility] Address [address] [place] [address] Phone Care Team Providers Care Desk Director Name Role Phone Anthony Ramirez MD Primary Care Provider Unav ailable Encounter Details Date Type Department Care Team (Late st Contact Info) Description 08/08/2016 [facility] Visit [facility] [address] [place], [place] [phone] Provider, MD Cindy [address] [place] [address] Social History Tobacco Use Types Packs/Day [...] on filedocumented in this encounter Care Teams Desk Director Relationship Specialty Start Date End Date Anthony Ramirez MD PCP - General 07/06/16 documented as of this encounter
--- OUTSIDE RECORDS SUMMARY | 2024-09-30 12:12 | XMS_ITS | Encounter Summary ---
Author Organization [facility] Address [address] [place] [address] Phone Care Team Providers Care Factory Maintenance Technician Name Role Phone Anthony Ramirez MD Primary Care Provider Unav ailable Encounter Details Date Type Department Care Team (Late st Contact Info) Description 06/27/2017 Office Visit [facility] [address] [place], [place] [phone] Provider, MD Cindy [address] [place] [address] Social History Tobacco Use Types Packs/Day [...] on filedocumented in this encounter Care Teams Factory Maintenance Technician Relationship Specialty Start Date End Date Anthony Ramirez MD PCP - General 07/06/16 documented as of this encounter
--- OUTSIDE RECORDS SUMMARY | 2024-09-30 12:12 | XMS_ITS | Encounter Summary ---
Author Organization [facility] Address [address] [place] [address] Phone Care Team Providers Care Critical Systems Technician Name Role Phone Anthony Ramirez MD Primary Care Provider Unav ailable Encounter Details Date Type Department Care Team (Late st Contact Info) Description 08/08/2016 Office Visit [facility] [address] [place], [place] [phone] Provider, MD Cindy [address] [place] [address] Social History Tobacco Use Types Packs/Day [...] on filedocumented in this encounter Care Teams Critical Systems Technician Relationship Specialty Start Date End Date Anthony Ramirez MD PCP - General 07/06/16 documented as of this encounter
--- OUTSIDE RECORDS SUMMARY | 2024-09-30 12:12 | XMS_ITS | Encounter Summary ---
Author Organization [facility] Address [address] [place] [address] Phone Care Team Providers Care Dishwasher Name Role Phone Anthony Ramirez MD Primary Care Provider Unav ailable Encounter Details Date Type Department Care Team (Late st Contact Info) Description 03/27/2017 Office Visit [facility] [address] [place], [place] [phone] Provider, MD Cindy [address] [place] [address] Social History Tobacco Use Types Packs/Day [...] on filedocumented in this encounter Care Teams Dishwasher Relationship Specialty Start Date End Date Anthony Ramirez MD PCP - General 07/06/16 documented as of this encounter
== END 2024-09-30 11:02 | disposition home or self-care (01) ==
PROVIDERS: PCP Internal Medicine Geriatric Medicine; Visit Provider Internal Medicine
DX: I25.10 Atherosclerotic heart disease of native coronary artery without angina pectoris (principal); I48.19 Other persistent atrial fibrillation; I50.812 Chronic right heart failure; I31.39 Other pericardial effusion (noninflammatory); I10 Essential (primary) hypertension; S06.5X9A Traumatic subdural hemorrhage with loss of consciousness of unspecified duration, initial encounter; Z95.0 Presence of cardiac pacemaker
CPT/HCPCS: 99214; G2211

== ENCOUNTER → 2024-09-30 10:35 | Outpatient (BNVA) | payer OTHER, SELFPAY | PROVIDERS: PCP Internal Medicine Geriatric Medicine; Visit Provider Internal Medicine | DX: I25.10 Atherosclerotic heart disease of native coronary artery without angina pectoris (principal); I11.0 Hypertensive heart disease with heart failure; I50.812 Chronic right heart failure; I48.19 Other persistent atrial fibrillation; I31.39 Other pericardial effusion (noninflammatory); Z95.0 Presence of cardiac pacemaker | CPT/HCPCS: 99212 ==

== ENCOUNTER 2024-10-14 09:00 | Outpatient (AMB) | payer OTHER, SELFPAY ==
[2024-10-14 09:07] VITALS: BP 124/62; PULSE 85; O2SAT 99; BMI 25.5
--- NOTE | 2024-10-14 09:07 | MHC.OFFVIS ---
Vital Signs 10/14/24 09:07 Height 5 ft 7 in Weight 163 lb 2.273 oz BMI 25.5 BP 124/62 Blood Pressure Location Lt brachial Position Sitting Pulse 85 Pulse Source Pulse Oximeter Pulse Oximetry (%) 99 Oxygen Delivery Method Room Air Intake Visit Reasons: Mediastinal Mass Allergies NSAIDS due to CKD Allergy (Unknown, Uncoded 10/14/24 09:10) n/a HPI Comments Details: The patient is a 84 year old gentleman with a known history of mediastinal mass in addition to atrial fibrillation on Eliquis who presents with episodes of hemoptysis. The patient complains of a chronic cough and chest congestion. He does have a hard time expectorating. At times he notices some specks of blood in the sputum. Usually scant. the patient has had some chest pressure and pain substernal area. Pleuritic in nature. Some degree it is reproducible suggesting costochondritis. Although not completely certain. He also complains of nasal congestion also has had some epistaxis. The patient also was diagnosed with a mediastinal mass. He did follow-up with thoracic surgery and has serial CT scans of the chest. The decision that time was to continue monitoring the anterior mediastinal mass with serial CT scans. His last CT scan of the chest was back in October 2021. however, now with his worsening cough and hemoptysis it will be prudent to follow-up with the mediastinal mass at this time. 09/04/2023 the patient is here for a pulmonary follow-up visit. The patient is doing well from a respiratory status. Denies any shortness breath denies any weight loss or night sweats. He had been in the hospital back in May. He did have a repeat CT scan of the chest and it demonstrated that the mediastinal mass it increased in size. Had been evaluated previously by thoracic surgery but since the mask was not changing in size was felt that conservative management was best. But now the mask is appearing to be increasing in size then a surgical approach may be a better option. Will plan to repeat the CT scan at this time and also present him at tumor conference to see if any other suggestions,. Otherwise the patient is aware that if his mediastinal mass seems to be getting worse then he will be referred to thoracic surgery again. Otherwise respiratory status stable. I did reach out to his primary care. 11/30/2023 the patient is here for a pulmonary follow-up visit. Overall he is doing well. Denies any shortness of breath or chest pain weight loss. Denies any difficulty swallowing. He is reluctant to undergo any biopsies of the mediastinal mass at this time. He understands that it is a concerning mask. We did review his imaging studies from back to 2020 to the most recent 2023 demonstrating interval increase in the size of the mask. He was referred to thoracic surgery for resection. However, due to his comorbidities it was felt that a biopsy would be a good 1st step. The patient does have a significant cardiovascular history. He has been arranged for biopsy this time. Although at this point the patient would like to hold off on it. I did talk to his daughter and explained to her the concerns of this potentially being a malignant process in the fact that her father does not want to have anything done yet. She is supporting his decision. Therefore, we will let thoracic surgery know that he would like to hold off on the biopsy will plan to repeat his CT scan in February to see any further progression. If the patient develops any worsening symptoms prior to that he will call for an earlier assessment. 10/14/2024 the patient is here for a pulmonary follow-up visit. He denies any respiratory complaints. Denies any difficulty swallowing. He understands he has his mediastinal mask. His last CT scan back in the fall of 2023 demonstrating some slight growth. He was referred to thoracic surgery although, it was recommended the patient have a biopsy the patient did have an biopsies as of yet. Clinically denies any weight loss or night sweats. Respiratory status is stable. Will go ahead and repeat another CAT scan in the fall to make sure that we monitor this growth. In the meantime he does have rescue therapy that he can use as needed. He has not required his inhaler. [facility] Medical History Tricuspid regurgitation Kidney disease Pleuritic chest pain Cough Hemoptysis History of CVA with residual deficit (~04/2005) History of COVID-19 (~06/2020) SDH (subdural hematoma) Essential hypertension Normally functioning cardiac pacemaker present (~2006) Atherosclerotic cardiovascular disease Hyperlipidemia GERD (gastroesophageal reflux disease) Pacemaker (~2006) Diabetes mellitus Persistent atrial fibrillation Surgical History History of heart artery stent History of craniotomy History of permanent cardiac pacemaker placement (~09/2006) Family History Father No problems noted. Mother No problems noted. Social History Household Members: None Housing: Apartment Do you presently have visiting nurse or other home services: Yes Alcohol intake: unknown Comment: able to verbalize back the need to use call perez if he needs to get OOB Patient Tobacco Use Status: Former Tobacco user Second Hand Smoke Exposure: No service: No Current occupational status: retired Review of Systems Const Denies weakness Eyes Denies change in vision ENT Denies change in voice, Denies dizziness, Denies epistaxis, Reports nasal congestion and Reports nasal discharge Card Denies chest pain, Denies chest pain with activity, Denies syncope, Denies rapid heart rate, Denies pedal edema, Denies edema, Denies leg edema, Denies lightheadedness, Denies palpitations, Denies dyspnea, Denies dyspnea on exertion and Denies orthopnea Resp Denies change in phlegm color, Reports chest congestion, Reports cough, Denies hemoptysis, Denies pain on inspiration, Denies pain with cough, Denies dyspnea and Denies dyspnea on exertion GI Denies hematochezia and Denies change in stool character Musc Denies abnormal gait, Denies muscle weakness, Denies numbness, Denies radiating pain into limb and Denies tingling Neuro Denies Abnormal speech present, Denies abnormal gait, Denies dizziness, Denies syncope, Denies numbness, Denies tingling and Denies weakness Endo Denies palpitations Physical Exam Vital Signs: Last Vital Signs Pulse 85 10/14/24 09:07 BP 124/62 10/14/24 09:07 Pulse Ox 99 10/14/24 09:07 Oxygen Delivery Method Room Air 10/14/24 09:07 BMI result Body Mass Index 25.5 Const General: comfortable and no acute distress Orientation/consciousness: patient oriented x3 HEENT Other: Unremarkable Head: Yes normal to inspection Neck Neck: Yes normal visual inspection Chest Chest palpation & inspection: normal inspection of the chest Resp Auscultation: clear to auscultation bilaterally Cardio Palpation: normal PMI Heart sounds: S1 normal heart sound present, S2 normal heart sound present, no gallops, Murmur heart sound present systolic II/ and at the left sternal border and no rubs GI Palpation (GI): Soft to palpation Back/Spine/Pelvis Other: unremarkable Skin General skin exam: no rashes or lesions noted Neuro General: patient oriented x3 Speech: No Abnormal speech present Extrem Other: 1+ edema L LE General: Yes normal to inspection Psych Mental Status: mental status grossly normal Assessment & Plan Assessment & Plan (1) Thymoma: Code(s): D49.89 - Neoplasm of unspecified behavior of other specified sites Category: Surgical (2) Mediastinal mass: Code(s): J98.59 - Other diseases of mediastinum, not elsewhere classified Category: Medical (3) Cough: Comment: upper airway cough syndrome Code(s): R05.9 - Cough, unspecified Category: Medical Qualifiers: Cough type: chronic Qualified Code(s): R05.3 - Chronic cough Plan Repeat CT chest, if mediastinal mass in 6 months The patient requesting to hold off on the mediastinal mass biopsy fluticasone nasal spray F/U 6 months Orders: Orders CT chest wo IV con 5 Months J98.59 - Other diseases of mediastinum, not elsewhere classified Coding Level of Care Code Est Pt Level 4 (82872) Complex EM visit Add On G2211 Diagnoses Thymoma D49.89 Mediastinal mass J98.59 Chronic cough R05.3 Cough type: chronic Time Spent (min) 16
--- OUTSIDE RECORDS SUMMARY | 2024-10-14 09:47 | XMS_ITS | Encounter Summary ---
Author Organization [employer] Address 75 [facility] 7t [place] [address] Care Team Providers Care Wet And Dry Sugar Bin Operator Name Role Phone Name, Juan M BLUE Primary Care Provider [phone] Gita Girard PharmD Unavailable [phone] Reason for Visit * Reason Comments Med Refill Encounter Details Date Type Department Care Team (Late st Contact Info) Description 07/13/2023 Refill [facility] [address] [place], [place] [phone] Pia Berrios DO [address] [place] [address] Social History Tobacco Use Types Packs/Day Years [...] Description 11/04/2024 1:00 PM EDT Office Visit [facility] [address] [place] [address] Cathi Saul 12/12/2024 11:30 AM EDT Medication Management [facility] MED[facility]INE [address] [place] [address] Gita Girard PharmD [address] [place] [address] 12/27/2024 11:15 AM EDT Office Visit [facility] [address] [place] [address] Name, MD Juan M [address] [place] [address] documented as of this encounter Goals Goal [...] documented as of this encounter Care Teams Wet And Dry Sugar Bin Operator Relationship Specialty Start Date End Date Name, MD Juan M [address] [place] [address] PCP - General Family Medicine 01/21/19 Gita Girard PharmD [address] [place] [address] Pharmacist Internal Medicine 07/14/22 documented as of this encounter
--- OUTSIDE RECORDS SUMMARY | 2024-10-14 09:47 | XMS_ITS | Encounter Summary ---
Author Organization [employer] Address 75 [facility] 7t [place] [address] Care Team Providers Care Museum Educator Name Role Phone Name, Juan M BLUE Primary Care Provider Gita Girard PharmD Unavailable [phone] Reason for Visit * Reason Comments Med Refill Encounter Details Date Type Department Care Team (Late st Contact Info) Description 07/17/2022 Refill [facility] [address] [place] [address] Name, MD Juan M [address] [place] [address] Social History Tobacco Use Types Packs/Day Years [...] Description 11/04/2024 1:00 PM EDT Office Visit [facility] [address] [place] [address] Cathi Saul 12/12/2024 11:30 AM EDT Medication Management [facility] [address] [place] [address] Gita Girard [place] [address] 12/27/2024 11:15 AM EDT Office Visit [facility] [address] [facility] [place] [address] Name, MD Juan M [place], [place] documented as of this encounter Goals [...] documented as of this encounter Care Teams Museum Educator Relationship Specialty Start Date End Date Name, MD Juan M [place], [place] PCP - General Family Medicine 01/21/19 Gita Girard PharmD [place], [place] Pharmacist Internal Medicine 07/14/22 documented as of this encounter
--- OUTSIDE RECORDS SUMMARY | 2024-10-14 09:47 | XMS_ITS | Clinical Summary ---
Author Organization [facility] Address [address] [place] [address] Phone Care Team Providers Care Crystal Gazer Name Role Phone Anthony Ramirez MD Primary [...] of Treatment Not on file Care Teams Crystal Gazer Relationship Specialty Start Date End Date Anthony Ramirez MD PCP - General 07/06/16
--- OUTSIDE RECORDS SUMMARY | 2024-10-14 09:47 | XMS_ITS | Encounter Summary ---
Author Organization [facility] Address [address] [place] [address] Phone Care Team Providers Care Tractor Crane Operator Name Role Phone Anthony Ramirez MD Primary Care Provider Unav ailable Encounter Details Date Type Department Care Team (Late st Contact Info) Description 08/06/2018 Office Visit [facility] [address] [place], [place] [phone] Provider, MD Cindy [address] [place] [address] Social History Tobacco Use Types Packs/Day [...] on filedocumented in this encounter Care Teams Tractor Crane Operator Relationship Specialty Start Date End Date Anthony Ramirez MD PCP - General 07/06/16 documented as of this encounter
--- OUTSIDE RECORDS SUMMARY | 2024-10-14 09:47 | XMS_ITS | Encounter Summary ---
Author Organization [facility] Address 100 [facility] 200 [place] [address] Phone Care Team Providers Care Woods Boss Name Role Phone Name, Juan M BLUE Primary Care Provider [phone] Reason for Visit * Reason Comments Med Refill Encounter Details Date Type Department Care Team ([facility] Contact Info) Description 02/14/2022 Refill [facility] [address] [place] [address] Colt Alfonso MD Social History [...] Upcoming Encounters Date Type Department Care Team ([facility] Contact Info) Description 03/17/2025 3:00 PM EDT Office Visit [facility] [address] [place] [address] [place] [phone] Arpit Bundy MD 9667 [facility] 204 [place] [phone] documented as of this encounter Visit Diagnoses Not on filedocumented in this encounter Care Teams Woods Boss Relationship Specialty Start Date End Date Name, MD Juan M [address] [place] [address] PCP - General Internal Medicine 09/29/20 documented as of this encounter
--- OUTSIDE RECORDS SUMMARY | 2024-10-14 09:47 | XMS_ITS | Clinical Summary ---
Author Organization [facility] Address 100 [facility] [address] [place] [address] Phone Care Team Providers Care Clock Assembler Name Role Phone Name, Juan M BLUE Primary Care Provider [phone] Allergies Active Allergy Reactions Criticality Noted Date [...] tablet 2 3 Active ergocalciferol 1.25 MG (82298 UT) capsule TAKE 1 CAPSULE BY MOUTH [...] Only [facility] [address] [place] [address] Arpit Bundy MD Stage 3b chronic kidney disease (HCC); Renal osteodystrophy; Chronic kidney disease, stage 4 (severe) (HCC); Essential hypertension 09/02/2024 1:45 PM EDT Office Visit [facility] [address] [place] [address] Arpit Bundy MD Stage 3b chronic kidney [...] [facility] [address] [place] [address] Arpit Bundy MD 6129 [facility] [address] [place] [address] Health Maintenance Due Date Last [...] patient's age to complete this topic Insurance [facility] ([id number]) [facility] ([id number]) LISA FORD [id number] Care Teams Clock Assembler Relationship Specialty Start Date End Date Name, MD Juan M [address] [place] [address] [phone] PCP - General Internal Medicine 09/29/20
--- OUTSIDE RECORDS SUMMARY | 2024-10-14 09:47 | XMS_ITS | Encounter Summary ---
Author Organization [facility] Address [address] [place] [address] Phone Care Team Providers Care Game Manager Name Role Phone Anthony Ramirez MD Primary Care Provider Unav ailable Encounter Details Date Type Department Care Team (Late st Contact Info) Description 10/24/2017 Office Visit [facility] [address] [place], [place] [phone] Provider, MD Cindy [address] [place] [address] Social History Tobacco Use Types Packs/Day [...] on filedocumented in this encounter Care Teams Game Manager Relationship Specialty Start Date End Date Anthony Ramirez MD PCP - General 07/06/16 documented as of this encounter
--- OUTSIDE RECORDS SUMMARY | 2024-10-14 09:47 | XMS_ITS | Encounter Summary ---
Author Organization [facility] Address [address] [place] [address] Phone Care Team Providers Care Law Office Manager Name Role Phone Anthony Ramirez MD Primary Care Provider Unav ailable Encounter Details Date Type Department Care Team (Late st Contact Info) Description 08/08/2016 Office Visit [facility] [address] [place], [place] [phone] Provider, MD Cindy [address] [place] [address] Social History Tobacco Use Types Packs/Day [...] on filedocumented in this encounter Care Teams Law Office Manager Relationship Specialty Start Date End Date Anthony Ramirez MD PCP - General 07/06/16 documented as of this encounter
--- OUTSIDE RECORDS SUMMARY | 2024-10-14 09:47 | XMS_ITS | Encounter Summary ---
Author Organization [facility] Address [address] [place] [address] Phone Care Team Providers Care Fashion Director Name Role Phone Anthony Ramirez MD Primary Care Provider Unav ailable Encounter Details Date Type Department Care Team (Late st Contact Info) Description 04/23/[address] [facility] [address] [place], [place] [phone] Provider, MD Cindy [address] [place] [address] Social History Tobacco Use Types Packs/Day [...] on filedocumented in this encounter Care Teams Fashion Director Relationship Specialty Start Date End Date Anthony Ramirez MD PCP - General 07/06/16 documented as of this encounter
--- OUTSIDE RECORDS SUMMARY | 2024-10-14 09:47 | XMS_ITS | Data Portability ---
Author Organization [email or web address] [place] [facility] [place] Address [address] [place] [address] Care Team Providers Care Resource Recovery Engineer Name Role Phone [facility] OTHER [facility] OTHER Assessment Encounter Date Assessment Date Assessment LastModified by Organization Details LastModified Time 01/23/2024 01/23/2024 As noted, we were called to see this patient regarding concerns of rash.Evaluation in the field was performed by my central sterile supply technician colleague, as noted above, I provided real-time [...] serious symptoms, particularly open lesions or pain [email or web address] Not available 01/23/2024 10:53:55 06/21/2024 06/21/2024 I have reviewed and agree with the assessment and plan as documented by the central sterile supply technician. I provided real-time medical direction for this [...] in the field was performed by my central sterile supply technician colleague, as noted above, I provided real-time direction and supervision for this visit. The evaluation revealed An 83 year old male with a past medical history of Hypertension, Chronic Kidney Disease, Diabetes Mellitus Type 2, Coronary Artery Bypass Grafting (CABG), Coronary Artery Disease, and a pacemaker on [facility] who presents with sore throat and [...] not a candidate for Paxlovid pt on [facility] Primary care, consider f/u clinical status Disposition: [...] serious symptoms, particularly SOB or chest pain [email or web address] Not available 07/15/2024 20:49:23 Plan of Treatment Reminders Order Date Submit Date Provider Last Modified By Organization Details Last Modified Time Details Appointments None recorded. Lab rapid SARS CoV 2 Ag, QL IA, respiratory specimen 2024 025 [email or web address], [phone] 20:20:28 rapid flu (A+B) 2024 025 [email or web address], [phone] 5 20:20:28 rapid strep group A, throat 2024 025 [email or web address] 7 [facility], [address] [place] [address], [phone] 5 20:20:28 Referral None recorded. Procedures None recorded. Surgeries None recorded. Imaging None recorded. Medication Orders clotrimazol e 1 % topical cream 2023 024 [facility], [address] [place] [address], [id number], 4 10:46:07 Patient TargetsNo targets recorded. Patient [...] Name and Address Organization Details Recorded Time 16586 ibuprofen medicatio n Not available Not available [...] /min 149 mm[Hg] 63 mm[Hg] Not Available [employer] 4 10:41:48 Date Recorded Body temperature Respiratory rate Body height Heart rate Oxygen saturation Oxygen saturation in Arterial blood by Pulse oximetry Body weight Systolic blood pressure Diastolic blood pressure Provider Name and Address Organization Details Last Updated DateTime 5 98.7 [degF] 19 /min 170.18 cm 81 /min 99 % 99 % 54154.0 88 g 166 mm[Hg] 74 mm[Hg] Not Available [employer] 5 18:23:39 Date Recorded Heart rate Oxygen saturation Oxygen saturation in Arterial blood by Pulse oximetry Body height Respiratory rate Body temperature Body weight Systolic blood pressure Diastolic blood pressure Provider Name and Address Organization Details Last Updated DateTime 5 88 /min 99 % 99 % 170.18 cm 18 /min 98.7 [degF] 70046.6 8 g 162 mm[Hg] 81 mm[Hg] Not Available [facility] - production 20:17:40 Social History None recorded. Functional Status None recorded. Mental Status None recorded. Family History Nothing Reported. Medical History No medical history recorded. Past Encounters Encounter ID Performer Location Encounter Start Date Encounter Closed Date Diagnosis/Indication Diagnosis SNOMED-CT Code Diagnosis ICD10 Code Diagnosis Note [id number] Reagan Rodríguez MD [facility] [address] [place] [phone] 01/23/2024 10:41:42 01/23/2024 11:11:17 Tinea cruris 839118026 B35.6 isolated to groin, plan [place] antifungal s [id number] Isatu Medeiros MD [facility] [address] [place] [phone] 06/21/2024 18:23:38 06/21/2024 22:05:46 Sore nipple 701816451 N64.59 [id number] JANET STUART MD [facility] [address] [place] [phone] 07/15/2024 20:17:33 07/15/2024 21:31:59 Acute COVID-19 5725156425 U07.1 Health Concerns Section Related Observation LastModified by Organization Detai ls LastModified Time None Recorded Concern Status LastModified by Organization Details LastModified Time None Recorded Advance Directives Directive None Recorded Payers Encounter Date Sequence Insurance Name Policy Number Policy Willingham Covered Member ID Willingham Member ID Guarantor Name 01/23/2024 1 [facility] [employer] - DOS ON OR AFTER 2022 - DUAL ELIGIBLE - CUSTODIAL OPTIONS AND ONE CARE (MEDICARE REPLACEMENT/ADV ANTAGE - HMO) Dk Sepulveda [id number] Dk Sepulveda 06/21/2024 1 [facility] [employer] - DOS ON OR AFTER 2022 - DUAL ELIGIBLE - CUSTODIAL OPTIONS AND ONE CARE (MEDICARE REPLACEMENT/ADV ANTAGE - HMO) Dk Sepulveda [id number] Dk Sepulveda 07/15/2024 1 [facility] [employer] - DOS ON OR AFTER 2022 - DUAL ELIGIBLE - CUSTODIAL OPTIONS AND ONE CARE (MEDICARE REPLACEMENT/ADV ANTAGE - HMO) Dk Sepulveda [id number] Dk [employer] Notes Date Note Type Note Provider Name and Address Organization Details Recorded Time 01/23/2024 text/html HPI: Patient with complaints of rash inner thighs and scrotum area. [facility] reports flat red like a jig saw puzzle no bleeding. ...................... ...................... ...................... ...................... ...................... ...................... ......... CRC Nurse Triage Notes (Asia Davenport): Chief Complaints: Rash PMH: Diabetes, Hypertension Other Allergies: NSAIDS Comments: CRC RN DID NOT NEED FURTHER INFO 1999: Unable to reach member (2 separate attempts made) to reschedule appointment d/t capacity issues. Member called with branch account executive services. VM left by branch account executive explaining to member that he would be rescheduled for evaluation tomorrow, 01/22/24. Education provided on the response time and the member was advised to monitor reported s/s and seek emergency treatment if needed. ...................... ...................... ...................... ...................... ...................... ...................... ......... Filter Operator Note From Contreras Wheatley: Pt reports several days of itchy rash in his inner thighs/groin. Pt denies drainage, f/n/v/d. Pt is alert, NAD. VSS. Afebrile. Non focal neuro exam. Normal gait. Bilateral erythema and smell c/w cutaneous candidiasis. C to send rx to pharmacy. Pt to f/u with PCP. ...................... ...................... ...................... ...................... ...................... ...................... ......... Disposition: Fulfilled Reagan Rodríguez MD [address] [place] [address],[address], [place], [phone], [email or web address] 01/23/2024 10:55:06 06/21/2024 text/html HPI: Patient reports [...] ...................... ...................... ...................... ...................... ...................... ...................... ......... Filter Operator Note From Maribel Arcos: Pt chief complaint [...] 4/10. Pt CAOX4 with a GCS of 15.[facility] isatu medeiros consulted.Pt informed of possible chaffing of the area. Pt I aguirre to use lotion/ Vaseline on the area for a protective barrier as well as to wear less abrasive material on his upper body.Pt told to co tact his pcp if pain persists after x1 week of [facility] visit. Pt educated on red flag S&S and told to seek medical assistance if any present. ...................... ...................... ...................... ...................... ...................... ...................... ......... [facility] Consulted: Isatu Medeiros ...................... ...................... ...................... ...................... ...................... ...................... ......... Disposition: Fulfilled Isatu Medeiros MD [address] [place] [address],[address], [place], [phone] [email or web address] 06/21/2024 19:19:21 07/15/2024 text/html CRC Nurse Triage [...] s/s and seek emergency treatment if needed. Filter Operator Organization Information for [facility] Legal Name: [employer]Address: [address] [place] [address], Medical Director: Nando Reyes [facility] No.: [id number] Filter Operator POC Test Results from [facility] Rapid COVID antigen (20:14:15)COVID: + Rapid influenza antigen (20:14:15)Flu: - Rapid strep test (20:14:16)Strep: - ...................... ...................... ...................... ...................... ...................... ...................... ......... Filter Operator Note From [facility]: SC1 dispatched to the above address for the pt reporting a sore throat since Monday. The pt was called through the [employer] system and he came from the 3rd [...] ...................... ...................... ...................... ...................... ...................... ...................... ......... [facility] Consulted: Janet Stuart ...................... ...................... ...................... ...................... ...................... ...................... ......... Disposition: Fulfilled JANET STUART MD [address] [facility],[address], [place], [address], JULIO CÉSAR - [employer] SCHMITT 07/15/2024 20:50:13
--- OUTSIDE RECORDS SUMMARY | 2024-10-14 09:47 | XMS_ITS | Encounter Summary ---
Author Organization [employer] [facility] Address [address] [facility] 7t [place] [address] Care Team Providers Care Booster Plant Operator Name Role Phone Name, Juan M BLUE Primary Care Provider [phone] Gita Girard PharmD Unavailable [phone] Reason for Visit * Reason Comments Med Refill Encounter Details Date Type Department Care Team (Late st Contact Info) Description 09/25/2022 Refill [facility] MEDICINE [address] [place], [place] [phone] Name, MD Juan M [address] [place] [address] Chronic cough; Hypertension, unspecified type; Diabetes mellitus [...] [facility] ADULT DENTAL [address] [place] [address] Saul Cathi 12/12/2024 11:30 AM EDT Medication Management [facility] MED[facility] [address] [place] [address] Gita Girard PharmBarrie [address] [place] [address] 12/27/2024 11:15 AM EDT Office Visit [facility] MEDICINE [address] [place] [address] Juan M [place] [address] documented as of this encounter Goals Goal [...] type Diabetes mellitus type 2 with complications ([facility]) Right-sided low back pain without sciatica, unspecified chronicity Insomnia, unspecified type documented in this encounter Additional Health Concerns Assessment Noted Time PHQ-9 Depression Total Score: 0 06/08/20 22 9:37 AM EST documented as of this encounter Care Teams Booster Plant Operator Relationship Specialty Start Date End Date Juan M Rogers MD [address] [place] [address] PCP - General Family Medicine 01/21/19 Gita Girard, DamonD [address] [place] [address] Pharmacist Internal Medicine 07/14/22 documented as of this encounter
--- OUTSIDE RECORDS SUMMARY | 2024-10-14 09:47 | XMS_ITS | Encounter Summary ---
Author Organization [facility] Address [address] [place] [address] Phone Care Team Providers Care Stem Shaper Name Role Phone Anthony Ramirez MD Primary Care Provider Unav ailable Encounter Details Date Type Department Care Team (Late st Contact Info) Description 11/22/2016 Office Visit [facility] [address] [place], [place] [phone] Provider, MD Cindy [address] [place] [address] Social History Tobacco Use Types Packs/Day [...] on filedocumented in this encounter Care Teams Stem Shaper Relationship Specialty Start Date End Date Anthony Ramirez MD PCP - General 07/06/16 documented as of this encounter
--- OUTSIDE RECORDS SUMMARY | 2024-10-14 09:47 | XMS_ITS | Encounter Summary ---
Author Organization [facility] Address [address] [place] [address] Phone Care Team Providers Care Gas Operator Name Role Phone Anthony Ramirez MD Primary Care Provider Unav ailable Encounter Details Date Type Department Care Team (Late st Contact Info) Description 08/08/2016 Office Visit [facility] [address] [place], [place] [phone] Provider, MD Cindy [address] [place] [address] Social History Tobacco Use Types Packs/Day [...] on filedocumented in this encounter Care Teams Gas Operator Relationship Specialty Start Date End Date Anthony Ramirez MD PCP - General 07/06/16 documented as of this encounter
--- OUTSIDE RECORDS SUMMARY | 2024-10-14 09:47 | XMS_ITS | Encounter Summary ---
Author Organization [facility] Address [address] [place] [address] Phone Care Team Providers Care Armored Cable Machine Operator Name Role Phone Anthony Ramirez MD Primary Care Provider Unav ailable Encounter Details Date Type Department Care Team (Late st Contact Info) Description 04/27/2018 Office Visit [facility] [address] [place], [place] [phone] Provider, MD Cindy [address] [place] [address] Social History Tobacco Use Types Packs/Day [...] on filedocumented in this encounter Care Teams Armored Cable Machine Operator Relationship Specialty Start Date End Date Anthony Ramirez MD PCP - General 07/06/16 documented as of this encounter
--- OUTSIDE RECORDS SUMMARY | 2024-10-14 09:47 | XMS_ITS | Encounter Summary ---
Author Organization [facility] Address [address] [place] [address] Phone Care Team Providers Care Drill Rig Operator Helper Name Role Phone Anthony Ramirez MD Primary Care Provider Unav ailable Encounter Details Date Type Department Care Team (Late st Contact Info) Description 08/20/[address] [facility] [address] [place], [place] [phone] Provider, MD Cindy [address] [place] [address] Social History Tobacco Use Types Packs/Day [...] on filedocumented in this encounter Care Teams Drill Rig Operator Helper Relationship Specialty Start Date End Date Anthony Ramirez MD PCP - General 07/06/16 documented as of this encounter
--- OUTSIDE RECORDS SUMMARY | 2024-10-14 09:47 | XMS_ITS | Encounter Summary ---
Author Organization [employer] Address [address] [facility] 7t [place] [address] Care Team Providers Care Quality Worker Name Role Phone Name, Juan M BLUE Primary Care Provider [phone] Gita Girard PharmD Unavailable [phone] Encounter Details Date Type Department Care Team ([facility] st Contact Info) Description 12/13/2023 Telephone [facility] [address] [place] [address] Kenny Hopson, RONDAS [address] [place] [address] Social History Tobacco Use Types Packs/Day Years [...] Description 11/04/2024 1:00 PM EDT Office Visit [facility] ADULT DENTAL [address] [place] [address] Cathi Saul 12/12/2024 11:30 AM EDT Medication Management [facility] MEDICINE [address] [place] [address] Gita Girard, PharmD [address] [place] [address] 12/27/2024 11:15 AM EDT Office Visit [facility] MED[facility]INE [address] [place] [address] Name, MD Juan M [address] [place] [address] documented as of this encounter Goals Goal [...] documented as of this encounter Care Teams Quality Worker Relationship Specialty Start Date End Date Name, MD Juan M [address] [place] [address] PCP - General Family Medicine 01/21/19 Gita Girard PharmD [address] [place] [address] Pharmacist Internal Medicine 07/14/22 documented as of this encounter
--- OUTSIDE RECORDS SUMMARY | 2024-10-14 09:47 | XMS_ITS | Encounter Summary ---
Author Organization [facility] Address [address] [facility] 7t [place] [address] Care Team Providers Care Pilot Can Router Name Role Phone Name, Juan M BLUE Primary Care Provider [phone] Gita Girard PharmD Unavailable [phone] Encounter Details Date Type Department Care Team (Late st Contact Info) Description 08/16/2022 [place] [facility] MEDICINE [address] [place] [address] Gita Girard, PharmD [address] [place] [address] Social History Tobacco Use Types Packs/Day Years [...] Description 11/04/2024 1:00 PM EDT Office Visit [facility] ADULT DENTAL [address] [place] [address] Dorys Cathi 12/12/2024 11:30 AM EDT Medication Management [facility] MEDICINE [address] [place] [address] Gita Girard PharmD [address] [place] [address] 12/27/2024 11:15 AM EDT Office Visit [facility] MEDICINE [address] [place] [address] Name, MD Juan M [address] [place], [place] documented as of this encounter Goals [...] documented as of this encounter Care Teams Pilot Can Router Relationship Specialty Start Date End Date Name, MD Juan M [address] [place] [phone] PCP - General Family Medicine 01/21/19 Gita Girard PharmD [address] [place] [address] Pharmacist Internal Medicine 07/14/22 documented as of this encounter
--- OUTSIDE RECORDS SUMMARY | 2024-10-14 09:47 | XMS_ITS | Encounter Summary ---
Author Organization [facility] Address [address] [place] [address] Phone Care Team Providers Care Boot Trimmer Name Role Phone Anthony Ramirez MD Primary Care Provider Unav ailable Encounter Details Date Type Department Care Team (Late st Contact Info) Description 06/27/2017 Office Visit [facility] [address] [place], [place] [phone] Provider, MD Cindy [address] [place] [address] Social History Tobacco Use Types Packs/Day [...] on filedocumented in this encounter Care Teams Boot Trimmer Relationship Specialty Start Date End Date Anthony Ramirez MD PCP - General 07/06/16 documented as of this encounter
--- OUTSIDE RECORDS SUMMARY | 2024-10-14 09:47 | XMS_ITS | Clinical Summary ---
Author Organization [employer] Address [address] [facility] [address] [place] [address] Care Team Providers Care Dimethylaniline Sulfator Operator Name Role Phone Name, Juan M BLUE Primary Care Provider [phone] Gita Girard PharmD Unavailable [phone] Allergies Active Allergy Reactions Criticality Noted Date Comments Ibuprofen 06/26/2024 Other Reaction(s): Not available Nsaids 09/02/2022 Other reaction(s): n/a DUE TO CKD Other Nausea 01/06/2024 Medications ferrous sulfate 325 (65 Fe) MG EC tablet Take 1 tablet by mouth 1 (one) time each day. Active calcitriol (Rocaltrol) 0.25 MCG capsule TAKE 1 CAPSULE (0.25 MCG TOTAL) BY MOUTH EVERY OTHER DAY Active Eliquis 2.5 MG tablet Take 1 tablet by mouth 2 times daily. Active lidocaine (Lidoderm) 5 % patchIndications :Right-sided low back pain without sciatica, unspecified chronicity APPLY 1 PATCH TOPICALLY TO SKIN IN THE MORNING. LEAVE ON FOR 12 HOURS AND OFF FOR 12 HOURS DIRECTED 30 patch 2 Active Additional Information Patient not taking.Reported on 09/10/2024 amoxicillin (Amoxil) 500 MG capsule Take 4 capsules of amoxicillin 500 mg 1 hour prior dental procedure 12 capsule Active sildenafil (Viagra) 50 MG tablet Take 1 tablet (50 mg) by mouth if needed each day for erectile dysfunction. 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 If no response after 15 minutes administer an additional dose via 2nd device into other nostril. 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 (BG < 70 mg/dL). Check BG again after 15 minutes and repeat dose if needed. 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),Right- sided low back pain without sciatica, unspecified chronicity,Insom andrew, unspecified type TAKE 1 TABLET BY MOUTH EVERY EVENING 90 tablet 025 Active Acetaminophen Extra Strength 500 MG tablet TAKE 1 TABLET BY MOUTH EVERY 8 HOURS NEEDED FOR MILD PAIN 90 tablet 025 Active spironolactone (Aldactone) 25 MG tablet TAKE 1/2 TABLET BY MOUTH EVERY MORNING 15 tablet 025 Active torsemide (Demadex) 20 MG tablet TAKE 4 TABLETS BY MOUTH EVERY MORNING 120 tablet 025 Active carvedilol (Coreg) 3.125 MG tabletIndication s:Chronic cough,Hypertensi on, unspecified type,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),Right- sided low back pain without sciatica, unspecified chronicity,Insom andrew, unspecified type TAKE 1 CAPSULE BY MOUTH EVERY MORNING WITH BREAKFAST 90 capsule 025 2024 Discontinued Active Problems Problem Noted [...] agreeable with this -will call report to [facility] Acute worsening of stage 3 chronic kidney [...] for VNA Subconjunctival hemorrhage of left eye Assessment & Plan (01/02/2023 12:13 PM EDT): [...] Encounters Date Type Department Care Team Description 09/18/[address] [address] Juan M Rogers MD 09/17/[address] [address] Raina Najera MD Chronic cough; Hypertension, unspecified type; 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); Right-sided low back pain without sciatica, unspecified chronicity; Insomnia, unspecified type 09/13/[address] [address] Santosh Alexis MA november recalls 09/11/[address] [address] Santosh Alexis [place] Fax sent to [facility] 09/10/[address] [address] Gita Girard PharmD Care Coordination 09/10/[address] [address] Gita Girard, PharmD Prior Authorization (Elizabeth 3 CGM) 09/10/2024 Travel 09/04/2024 2:30 PM EDT Office Visit [address] [address] Juan M Rogers MD 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) (Primary Dx); Hypoglycemia due to type 2 diabetes mellitus (CMS/HCC); Stage 3b chronic kidney disease (CMS/HCC); Gallstones; Abdominal lymphadenopathy; Cirrhosis of liver without ascites, unspecified hepatic cirrhosis type (CMS/HCC) 09/04/2024 Travel 09/03/2024 Telephone [facility] MED[facility] [address] [place] [address] Santosh Alexis MA chart prep 08/29/2024 Refill [facility] [address] [place] [address] NameJuan M MD 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); Type 2 diabetes mellitus with unspecified complications (CMS/HCC) 08/20/2024 Refill [facility] WALK-IN CENTER [address] [place] [address] NameJuan M MD Chronic cough; Hypertension, unspecified type; 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); Right-sided low back pain without sciatica, unspecified chronicity; Insomnia, unspecified type 08/17/2024 Refill [facility] [address] [place] [address] Juan M Rogers MD 08/16/2024 Refill [facility] [address] [place], [place] [phone] Juan M Rogers MD 08/01/2024 Patient Outreach [facility] [address] [place], [place] [phone] Juan M Rogers MD 07/26/2024 Orders Only [facility] External Provider, [facility] 07/22/2024 Refill [facility] [address] [place] [address] NameJuan M MD Hypertension, unspecified type; Chronic cough; Diabetes mellitus type 2 with complications ([facility]); Right-sided low back pain without sciatica, unspecified chronicity; Insomnia, unspecified type from Last 3 Months Immunizations Name Administration [...] Description 11/04/2024 1:00 PM EDT Office Visit [facility] ADULT DENTAL [address] [place] [phone] Cathi Saul 12/12/2024 11:30 AM EDT Medication Management [facility] MED[facility] [address] [place] [phone] Gita Girard, PharmD [address] [place] [address] 12/27/2024 11:15 AM EDT Office Visit [facility] [address] [place] [phone] Name, MD Juan M [address] [place] [phone] Health Maintenance Due Date Last Done Comments [...] Routine 09/16/2022 9:26 AM EDT [facility] HISTORICAL MICROALBUMIN/CREATINI NE RATIO, RANDOM URINE Routine 04/18/2022 8:43 AM EDT from Last 3 Months or Most Recently Relevant to Health Maintenance Results * (ABNORMAL) CBC auto differential (09/04/2024 3:07 PM EDT) White Blood Count 6.4 4.8 - 10.8 X10*3/uL [facility] Red Blood Count 3.58(L) 4.60 - 5.80 X10*6/uL [facility] Hemoglobin 10.7(L) 14.0 - 18.0 g/dl [facility] Hematocrit 31.7(L) 42.0 - 52.0 % [facility] Mean Corpuscular Volume 88.5 80.0 - 98.0 fL [facility] Mean Corpuscular Hemoglobin 29.9 27.0 - 33.0 pg [facility] Mean Corpuscular HGB Conc 33.8 31.0 - 36.0 g/dl [facility] Red Cell Distribution Width 15.3 11.0 - 16.0 % [facility] Platelet Count 129(L) 160 - 400 X10*3/uL [facility] Mean Platelet Volume 9.8 9.4 - 12.4 fL [facility] Neutrophils Percent Auto 63.3 45 - 73 % [facility] Imm Gran Pct Auto 0.5(H) 0.0 - 0.4 % [facility] Lymphocytes Percent Auto 25.6 20 - 40 % [facility] Monocytes Percent Auto 8.1 2 - 11 % [facility] Eosinophils Percent Auto 2.3 0 - 4 % [facility] Basophils Percent Auto 0.2 0 - 2 % [facility] NRBC Pct Auto 0.0 0.0 - 0.2 /100WBC [facility] Neutrophils Absolute Auto 4.1 2.0 - 8.3 x10*3/uL [facility] Imm Gran Abs Auto 0.03 0.00 - 0.03 X10*3/uL [facility] Lymphocytes Absolute Auto 1.7 1.2 - 4.9 X10*3/uL [facility] Monocytes Absolute Auto 0.5 0.1 - 1.2 X10*3/uL [facility] Eosinophils Absolute Auto 0.2 0.0 - 0.4 X10*3/uL [facility] Basophils Absolute Auto 0.0 0.0 - 0.2 X10*3/uL [facility] NRBC Abs Auto 0.000 0.0 - 0.012 X10*3/uL [facility] Blood Venous blood specimen / Unknown 09/04/2024 3:07 PM EDT 09/04/2024 4:08 PM EDT us Juan M Rogers MD LAB BLOOD ORDERABLES Final Resul t Performing Organization Address [facility] Co de Phone Number [facility] [address] [place] [phone] * Hepatitis C Antibody with Reflex to HCV, RNA, Quantitative, Real-Time PCR (09/04/2024 3:07 PM EDT) Hepatitis C Antibody Nonreactive Nonreactive [facility] Comment:Antibodies to HCV no t detected; does not exclude early acuteHCV infection. Blood Venous blood specimen / Unknown 09/04/2024 3:07 PM EDT 09/04/2024 4:08 PM EDT us Juan M Rogers MD LAB BLOOD ORDERABLES Final Resul t Performing Organization Address [facility] de Phone Number [facility] [address] [place] [phone] * Hepatitis A Antibody, Total (09/04/2024 3:07 PM EDT) Hepatitis A Antibody IgG REACTIVE Nonreactive [facility] Comment:The presence of IgG anti-HAV implies past HAV infection(recent or distant) or vaccination against HAV. Blood Venous blood specimen / Unknown 09/04/2024 3:07 PM EDT 09/04/2024 4:08 PM EDT us Juan M Rogers MD LAB BLOOD ORDERABLES Final Resul t Performing Organization Address [facility] Co de Phone Number [facility] [address] [place] [phone] * Hepatitis B surface antigen, EIA (09/04/2024 3:07 PM EDT) Hepatitis B Surface Ag Negative Negative [facility] Blood Venous blood specimen / Unknown 09/04/2024 3:07 PM EDT 09/04/2024 4:08 PM EDT Result Tahmina Rogers MD LAB BLOOD ORDERABLES Final Resul t Performing Organization Address [facility] Co de Phone Number [facility] [address] [place] [phone] * HIV-1/2 Antigen and Antibodies, Fourth Generation, with Reflexes (09/04/2024 3:07 PM EDT) [facility] HIV AB/AG Nonreactive Nonreactive [facility] Comment:HIV-1 p24 Ag and/or HIV-1/HIV-2 Ab not detected.A test result that is nonreactive does not exclude thepossibility of exposure to or infection with HIV-1 and/orHIV-2. Nonreactive results in this assay for individualswith prior exposure to HIV-1 and/or HIV-2 may be due toantigen and antibody levels that are below the limit ofdetection of this assay.The [employer] HIV Ag/Ab Combo assay result andsupplemental assay results should be interpreted inconjunction with the patient's clinical presentation,history and other laboratory results. If the results areinconsistent with clinical evidence, additional testing issuggested to confirm the result. Blood Venous blood specimen / Unknown 09/04/2024 3:07 PM EDT 09/04/2024 4:08 PM EDT Result Tahmina Rogers MD LAB BLOOD ORDERABLES Final Resul t Performing Organization Address City/[facility]/ZIP Co de Phone Number [facility] [address] [place] [phone] * Hepatitis B Surface Antibody, Qualitative (09/04/2024 3:07 PM EDT) [facility] ~Hepatitis B Surface Antibody REACTIVE Nonreactive [facility] Comment:REACTIVE: > 11.99 mI U/mL Blood Venous blood specimen / Unknown 09/04/2024 3:07 PM EDT 09/04/2024 4:08 PM EDT us Juan M Rogers MD LAB BLOOD ORDERABLES Final Resul t Performing Organization Address City/[facility]/ZIP Co de Phone Number [facility] [address] [place] [phone] * Lactate Dehydrogenase (LD) (09/04/2024 3:07 PM EDT) Lactate Dehydrogenase 260 118 - 273 U/L [facility] Blood Venous blood specimen / Unknown 09/04/2024 3:07 PM EDT 09/04/2024 4:08 PM EDT us Juan M Rogers MD LAB BLOOD ORDERABLES Final Resul t Performing Organization Address [facility] Co de Phone Number [facility] [address] [place] [phone] * (ABNORMAL) Comprehensive Metabolic Panel (09/04/2024 3:07 PM EDT) Pathologist [facility] Sodium 140 135 - 145 mmol/L [facility] Potassium 3.9 3.3 - 5.1 mmol/L [facility] Chloride 106 96 - 108 mmol/L [facility] Carbon Dioxide 25 22 - 29 mmol/L [facility] Anion Gap 13 12 - 20 [facility] Urea Nitrogen (BUN) 47(H) 9 - 16 mg/dL [facility] Creatinine, Serum 2.24(H) 0.5 - 1.4 mg/dL [facility] Estimated Glomerular Filt Rate 28 [facility] Comment:Chronic Kidney Disea se: Estimated GFR < 60 mL/min/1.34i2Oqxaol Kidney Disease: Estimated GFR < 15 mL/min/1.73m2 Glucose 192(H) 60 - 115 mg/dL [facility] Calcium 9.4 8.4 - 10.2 mg/dL [facility] Bilirubin, Total 0.8 0.0 - 1.0 mg/dL [facility] Aspartate Amino Transferase 31 5 - 37 U/L [facility] Alanine Aminotransferase 18 0 - 40 U/L [facility] Total Protein 7.9 6.5 - 8.0 g/dL [facility] Albumin Level 4.3 3.5 - 5.0 g/dL [facility] Alkaline Phosphatase 51 39 - 117 U/L [facility] Blood Venous blood specimen / Unknown 09/04/2024 3:07 PM EDT 09/04/2024 4:08 PM EDT us Juan M Rogers MD LAB BLOOD ORDERABLES Final Resul t [facility] [address] [place] [phone] * (ABNORMAL) POCT HGB A1C (09/04/2024 2:50 PM EDT) Pathologist [facility] Hemoglobin A1C 6.6(A) 4.0 - 6.0 % QC Media Lot # [id number] Lot# Expiration Date [id number] Blood 09/04/2024 2:50 PM EDT us Juan M Rogers MD POINT OF CARE TEST ENTER/EDIT OR DERABLES Final Result * (ABNORMAL) POCT Glucose (09/04/2024 2:37 PM EDT) Pathologist [facility] Glucose Blood, POC 214(A) 60 - 200 mg/dL QC Media Lot # [id number] Lot# Expiration Date 82,625 Blood Capillary blood specimen / Unknown 09/04/2024 2:37 PM EDT Juan M Rogers MD POINT OF CARE TEST ENTER/EDIT OR DERABLES Final Result * CT Abdomen Pelvis w/o Contrast (07/26/2024 2:37 PM EST) Anatomical Region Laterality Modality Body, Pelvis, Abdomen Computed T omography 07/26/2024 2:37 PM EST Narrative 07/26/2024 3:37 PM EST ? [facility] ?[address] ?[place] [address] ? CT Scan Report ? Signed ? Patient: Derick,Dk ?MR#: [id number] ?? [id number] ? : 1940 ?Acct:[id number] ? Age/Sex: 83 / M ?ADM Date: 07/26/24 ? Loc: HO.CT ? Attending Dr: Ronni Dodge MD ? Ordering Physician: Ronni Dodge MD ?? Date of Service: 07/26/24 ?? Procedure(s): CT abdomen pelvis wo IV con ?? Accession Number(s): [id number] ? cc: Ronni Dodge MD; Name,Juan M BLUE ? Report Number: ?? [id number]: Total DLP = ??351.00 mGy-cm ?? EXAMINATION: [...] in OV> ? 07/26/24 1534 ? DD/ ? TD/TT: 07/26/24 1450 ? Sole Skiver: ? Procedure Note Donotuseinterpreter, Image - 07/26/[address] [address] [address] Scan Report Signed Patient: Karlo Sepulveda#: [id number] : 2Acct:[id number] Age/Sex: 83 / MADM Date: 07/26/24 Loc: HO.CT Attending Dr: Ronni Dodge MD Ordering Physician: Ronni Dodge MD Date of Service: 07/26/24 Procedure(s): CT abdomen pelvis wo IV con Accession Number(s): [id number] cc: Ronni Dodge MD; Name,Juan M Report Number: [id number]: Total DLP = 351.00 mGy-cm EXAMINATION: CT [...] by: Uri Branch MD 07/26/2024 03:34 PM [facility] Dictated By: Uri Dowling MD Signed By: <Electronically signed by Uri Aggarwal MDin OV> 07/26/24 1534 DD/ 1437 TD/TT: 07/26/24 1450 Sole Skiver: us [facility] External Provider IMG CT PROCEDURES Final Result * Lipid Panel, Standard (09/16/2022 9:26 AM EDT) Triglycerides 134 mg/dL [facility] Comment:Desirable Triglyceri de: less than 150 mg/dLBorderline High Triglyceride 150-199 mg/dLHigh Triglyceride: 200-499 mg/dLVery High Triglyceride: greater than or equal to 5OO mg/dL Cholesterol 114 mg/dL [facility] Comment:Desirable Cholestero l: less than 200 mg/dLBorderline High Cholesterol: 200-239 mg/dLHigh Cholesterol: greater than 239 mg/dL LDL Cholesterol Calculated 59 mg/dl [facility] Comment:Desirable LDL: less than 100 mg/dLNear Optimal/Above Optimal LDL: 110- 129 mg/dLBorderline High LDL: 130-159 mg/dLHigh LDL: 160-189 mg/dLVery High LDL: greater than or equal to 190 mg/dL HDL Cholesterol 29 mg/dL [facility] Comment:Desirable HDL: great er than 40 mg/dL Note: This HDL assay may give artificially low results in patients with liver disease. 09/16/2022 9:26 AM EDT 09/16/2022 9:26 AM EDT [facility] External Provider LAB BLO OD ORDERABLES Final Result Performing Organization Address [facility] Co de Phone Number [facility] [address] [place] [phone] * (ABNORMAL) MICROALBUMIN/CREATININE RATIO, RANDOM URINE [...] CONVERTED LEGACY LABS 04/18/2022 8:43 AM EDT Aript Bundy MD HISTORICAL/NON ORDERABLE LABS Final Result Performing Organization Address City/[facility]/ZIP Co de Phone Number CONVERTED LEGACY LABS from Last 3 Months or Most Recently Relevant to Health Maintenance Insurance [facility] [employer] OPT[employer] (HMO D-SNP) [place] [id number] Advance Directives Documents on File Type Date Recorded Patient General Partner Expl anation HealthCare Proxy 06/28/2023 HEALTHCARE PROXY 06/13/23 Care Teams Dimethylaniline Sulfator Operator Relationship Specialty Start Date End Date Name, MD Juan M [address] [place] [address] PCP - General Family Medicine 01/21/19 Gita Girard PharmD [address] [place] [address] Pharmacist Internal Medicine 07/14/22
--- OUTSIDE RECORDS SUMMARY | 2024-10-14 09:47 | XMS_ITS | Encounter Summary ---
Author Organization [facility] Address [address] [place] [phone] Phone Care Team Providers Care Study Hall Supervisor Name Role Phone Anthony Ramirez MD Primary Care Provider Unav ailable Encounter Details Date Type Department Care Team (Late st Contact Info) Description 11/22/2016 Office Visit [facility] [address] [place], [place] [phone] Provider, MD Cindy [address] [place] [phone] Social History Tobacco Use Types Packs/Day [...] on filedocumented in this encounter Care Teams Study Hall Supervisor Relationship Specialty Start Date End Date Anthony Ramirez MD PCP - General 07/06/16 documented as of this encounter
--- OUTSIDE RECORDS SUMMARY | 2024-10-14 09:47 | XMS_ITS | Encounter Summary ---
Author Organization [employer] Address [address] [facility] 7t [place] [address] Care Team Providers Care Meat Wrapper Name Role Phone Name, Juan M BLUE Primary Care Provider [phone] Gita Girard PharmD Unavailable [phone] Reason for Visit * Reason Comments Med Refill Encounter Details Date Type Department Care Team ([facility] st Contact Info) Description 01/29/2024 Refill [facility] [address] [place], [place] [phone] Name, MD Juan M [address] [place] [address] Social History Tobacco Use Types Packs/Day Years [...] 1:00 PM EDT Office Visit [facility] [address] [place] [phone] Cathi Saul 12/12/2024 11:30 AM EDT Medication Management [facility] [address] [place] [phone] Gita Girard PharmD [address] [place] [address] 12/27/2024 11:15 AM EDT Office Visit [facility] [address] [place] [address] Name, MD Juan M [address] [place] [address] documented as of this encounter Goals Goal [...] documented as of this encounter Care Teams Meat Wrapper Relationship Specialty Start Date End Date Name, MD Juan M [address] [place] [address] PCP - General Family Medicine 01/21/19 Gita Girard PharmD [address] [place] [address] Pharmacist Internal Medicine 07/14/22 documented as of this encounter
--- OUTSIDE RECORDS SUMMARY | 2024-10-14 09:47 | XMS_ITS | Encounter Summary ---
Author Organization [employer] Address [address] [place] [address] Phone Care Team Providers Care Tree Cutter Name Role Phone Anthony Ramirez MD Primary Care Provider Unav ailable Encounter Details Date Type Department Care Team (Late st Contact Info) Description 09/19/2016 Office Visit [facility] [address] [place], [place] [phone] Provider, MD Cindy [address] [place] [address] Social History Tobacco Use Types Packs/Day [...] on filedocumented in this encounter Care Teams Tree Cutter Relationship Specialty Start Date End Date Anthony Ramirez MD PCP - General 07/06/16 documented as of this encounter
--- OUTSIDE RECORDS SUMMARY | 2024-10-14 09:47 | XMS_ITS | Encounter Summary ---
Author Organization [employer] Address [address] [place] [address] Phone Care Team Providers Care Manufacturing Test Engineer Name Role Phone Anthony Ramirez MD Primary Care Provider Unav ailable Encounter Details Date Type Department Care Team (Late st Contact Info) Description 03/27/2017 Office Visit [facility] [address] [place], [place] [phone] Provider, MD Cindy [address] [place] [address] Social History Tobacco Use Types Packs/Day [...] on filedocumented in this encounter Care Teams Manufacturing Test Engineer Relationship Specialty Start Date End Date Anthony Ramirez MD PCP - General 07/06/16 documented as of this encounter
--- OUTSIDE RECORDS SUMMARY | 2024-10-14 09:47 | XMS_ITS | Encounter Summary ---
Author Organization [employer] Address [address] [place] [address] Phone Care Team Providers Care Char Dust Cleaner And Salvager Name Role Phone Anthony Ramirez MD Primary Care Provider Unav ailable Encounter Details Date Type Department Care Team (Late st Contact Info) Description 09/19/2016 Office Visit [facility] [address] [place], [place] [phone] Provider, MD Cindy [address] [place] [address] Social History Tobacco Use Types Packs/Day [...] on filedocumented in this encounter Care Teams Char Dust Cleaner And Salvager Relationship Specialty Start Date End Date Anthony Ramirez MD PCP - General 07/06/16 documented as of this encounter
--- OUTSIDE RECORDS SUMMARY | 2024-10-14 09:47 | XMS_ITS | Encounter Summary ---
Author Organization [employer] Address [address] [place] [address] Phone Care Team Providers Care Computer Systems Hardware Analyst Name Role Phone Anthony Ramirez MD Primary Care Provider Unav ailable Encounter Details Date Type Department Care Team (Late st Contact Info) Description 01/17/2020 Abstract [facility] [address] [place], [place] [phone] Provider, MD Cindy [address] [place] [address] Social History Tobacco Use Types Packs/Day [...] on filedocumented in this encounter Care Teams Computer Systems Hardware Analyst Relationship Specialty Start Date End Date Anthony Ramirez MD PCP - General 07/06/16 documented as of this encounter
--- OUTSIDE RECORDS SUMMARY | 2024-10-14 09:47 | XMS_ITS | Encounter Summary ---
Author Organization [employer] Address [address] [place] [address] Phone Care Team Providers Care Buffing Machine Operator Name Role Phone Anthony Ramirez MD Primary Care Provider Unav ailable Encounter Details Date Type Department Care Team (Late st Contact Info) Description 06/27/2017 Office Visit [facility] [address] [place], [place] [phone] Provider, MD Cindy [address] [place] [address] Social History Tobacco Use Types Packs/Day [...] on filedocumented in this encounter Care Teams Buffing Machine Operator Relationship Specialty Start Date End Date Anthony Ramirez MD PCP - General 07/06/16 documented as of this encounter
--- OUTSIDE RECORDS SUMMARY | 2024-10-14 09:48 | XMS_ITS | Encounter Summary ---
Author Organization [employer] Address [address] [facility] 7t [place] [address] Care Team Providers Care Computational Sciences Professor Name Role Phone Name, Juan M BLUE Primary Care Provider [phone] Gita Girard PharmD Unavailable [phone] Encounter Details Date Type Department Care Team ([facility] st Contact Info) Description 05/17/2023 Telephone [facility] [address] [place], [place] [phone] Name, MD Juan M [address] [place] [address] Social History Tobacco Use Types Packs/Day Years [...] 1:00 PM EDT Office Visit [facility] [address] [place] [address] Cathi Saul 12/12/2024 11:30 AM EDT Medication Management [facility] [address] [place] [phone] Gita Girard, PharmD [address] [place] [address] 12/27/2024 11:15 AM EDT Office Visit [facility] [address] [place] [address] Name, MD Juan M [address] [place] [address] documented as of this encounter Goals Goal [...] documented as of this encounter Care Teams Computational Sciences Professor Relationship Specialty Start Date End Date Name, MD Juan M [address] [place] [address] PCP - General Family Medicine 01/21/19 Gita Girard, Kita [address] [place] [address] Pharmacist Internal Medicine 07/14/22 documented as of this encounter
--- OUTSIDE RECORDS SUMMARY | 2024-10-14 09:48 | XMS_ITS | Encounter Summary ---
Author Organization [employer] Address [address] [facility] 7t [place] [address] Care Team Providers Care Mail Teller Name Role Phone Name, Juan M BLUE Primary Care Provider [phone] Gita Girard PharmD Unavailable [phone] Reason for Visit * Reason Comments Med Refill Encounter Details Date Type Department Care Team (Late st Contact Info) Description 06/14/2023 Refill [facility] [address] [place], [place] [phone] Name, MD Juan M [address] [place] [address] Chronic cough; Hypertension, unspecified type; Diabetes mellitus [...] 1:00 PM EDT Office Visit [facility] [address] [place] [address] Cathi Saul 12/12/2024 11:30 AM EDT Medication Management [facility] [address] [place] [address] Gita Girard PharmD [address] [place] [address] 12/27/2024 11:15 AM EDT Office Visit [facility] [address] [place] [address] [phone] Name, MD Juan M [address] [place] [address] documented as of this encounter Goals Goal [...] type Diabetes mellitus type 2 with complications ([facility]) Right-sided low back pain without sciatica, unspecified chronicity Insomnia, unspecified type documented in this encounter Additional Health Concerns Assessment Noted Time PHQ-9 Depression Total Score: 0 06/08/20 22 9:37 AM EST documented as of this encounter Care Teams Mail Teller Relationship Specialty Start Date End Date Name, MD Juan M [address] [place] [address] PCP - General Family Medicine 01/21/19 Gita Girard PharmD [address] [place] [address] Pharmacist Internal Medicine 07/14/22 documented as of this encounter
== END 2024-10-14 09:24 | disposition home or self-care (01) ==
LOC: HO.HPS 09:01
PROVIDERS: PCP Internal Medicine Geriatric Medicine; Visit Provider Hospitalist
DX: D49.89 Neoplasm of unspecified behavior of other specified sites (principal); J98.59 Other diseases of mediastinum, not elsewhere classified; R05.3 Chronic cough
CPT/HCPCS: 99214; G2211

== ENCOUNTER → 2024-10-14 09:00 | Outpatient (BNVA) | payer OTHER, SELFPAY | PROVIDERS: PCP Internal Medicine Geriatric Medicine; Visit Provider Hospitalist | DX: D49.89 Neoplasm of unspecified behavior of other specified sites (principal); J98.59 Other diseases of mediastinum, not elsewhere classified; R05.3 Chronic cough | CPT/HCPCS: 99212 ==

== ENCOUNTER → 2024-11-11 23:59 | Outpatient (BNV) | payer OTHER, SELFPAY ==
--- NOTE | 2024-11-17 09:37 | MHC.OFFVIS ---
Intake Visit Reasons: Remote device check- Medtronic Allergies NSAIDS due to CKD Allergy (Unknown, Uncoded 10/14/24 09:10) n/a [facility] Medical History Tricuspid regurgitation Kidney disease Pleuritic chest pain Cough Hemoptysis History of CVA with residual deficit (~04/2005) History of COVID-19 (~06/2020) SDH (subdural hematoma) Essential hypertension Normally functioning cardiac pacemaker present (~2006) Atherosclerotic cardiovascular disease Hyperlipidemia GERD (gastroesophageal reflux disease) Pacemaker (~2006) Diabetes mellitus Persistent atrial fibrillation Surgical History History of heart artery stent History of craniotomy History of permanent cardiac pacemaker placement (~09/2006) Family History Father No problems noted. Mother No problems noted. Social History Household Members: None Housing: Apartment Do you presently have visiting nurse or other home services: Yes Alcohol intake: unknown Comment: able to verbalize back the need to use call perez if he needs to get OOB Patient Tobacco Use Status: Former Tobacco user Second Hand Smoke Exposure: No service: No Current occupational status: retired Office Procedures Cardiac Device Check Cardiac Device Check Details: Date of service- 11/11/2024 ; Battery life >11 years; normal lead parameters; PRO SHOP ATTENDANT 100%; no significant arrhythmias. Overall normal device function. [id number] Cardiac Device Interrogation, pacemaker Procedure code (CPT) selection complete Assessment & Plan Assessment & Plan (1) Pacemaker: Onset Date: ~2006 Comment: (Medtronic SCPP - placed 2006, generator change 2013) Code(s): Z95.0 - Presence of cardiac pacemaker Category: Medical (2) Persistent atrial fibrillation: Code(s): I48.19 - Other persistent atrial fibrillation Category: Medical Plan x Coding Level of Care Code Procedure Only Diagnoses Pacemaker Z95.0 Persistent atrial fibrillation I48.19 CPT Codes Cardiac Device Check - Cardiac Device 12: [id number] Cardiac Device Interrogation, pacemaker ([id number])
== END ==
PROVIDERS: PCP Internal Medicine Geriatric Medicine; Visit Provider Internal Medicine
DX: I48.19 Other persistent atrial fibrillation (principal); Z95.0 Presence of cardiac pacemaker
CPT/HCPCS: 93294

== ENCOUNTER 2025-01-09 10:41 | Outpatient (AMB) | payer OTHER, SELFPAY ==
[2025-01-09 10:43] VITALS: BP 122/68; PULSE 83; BMI 25.2
--- NOTE | 2025-01-09 10:43 | MHC.OFFVIS ---
Vital Signs 01/09/25 10:43 Height 5 ft 7 in Weight 160 lb 14.999 oz BMI 25.2 BP 122/68 Blood Pressure Location Rt brachial Position Sitting Pulse 83 Pulse Source Monitor Intake Visit Reasons: 3 mth f/up Allergies NSAIDS due to CKD Allergy (Unknown, Uncoded 10/14/24 09:10) n/a Medication List - Last Reconciled 01/09/25 by Jon Stuart MD acetaminophen ER 650 mg PO Q12H PRN albuterol sulfate 90 mcg/actuation (Ventolin HFA) 2 puffs inhalation Q6H PRN amlodipine 2.5 mg PO QAM apixaban (Eliquis) 2.5 mg PO BID blood sugar diagnostic As directed blood-glucose meter (basico.comStyle [place] Lite kit) As directed calcitriol 0.25 mcg PO Q OTHER DAY carvedilol 3.125 mg PO BID colchicine 0.6 mg PO DAILY fluticasone propionate 50 mcg/actuation 2 sprays intranasal DAILY 30 days furosemide 40 mg PO DAILY insulin aspart U-100 (Novolog FlexPen U-100 Insulin aspart) 10 units subcut DAILY@0730 insulin aspart U-100 (Novolog FlexPen U-100 Insulin aspart) 8 units subcut DAILY@1130 insulin aspart U-100 (Novolog FlexPen U-100 Insulin aspart) 12 units subcut DAILY@1730 insulin degludec (Tresiba FlexTouch U-100 insulin) 28 units subcut BEDTIME lancets As directed metolazone weekly omeprazole 20 mg PO DAILY pen needle, diabetic (BD Ultra-Fine Short Pen Needle) As directed rosuvastatin 10 mg PO DAILY spironolactone 12.5 mg PO QAM torsemide 80 mg (4 x 20 mg) PO DAILY tramadol 50 mg PO Q8H PRN HPI Comments Details: Dk returns for follow-up regarding atrial fibrillation, coronary disease and other concerns. He used to live here, then moved to [place] for some time, then moved back here. He has a history of coronary artery disease and underwent cardiac catheterization in [place] following an abnormal stress test. This showed diffuse CAD and he underwent stenting of the diagonal. He also has a history of chronic atrial fibrillation on Eliquis. He has had a stroke around 2004. He also has a history of pacemaker placement from 2006 with generator change in 2013 and again 2023. Other issues include type 2 diabetes, hypertension, dyslipidemia, chronic kidney disease. One fall in the past that led to a subdural hematoma that required drainage. Apparently, anticoagulation was briefly on hold and then resumed based on [place] records. Then, one further hospitalization for right heart failure. Then diuretics were further adjusted. He has a history of thoracic mass but declined interventions. Last time, he was asking about discontinuing anticoagulation due to bruising issues. We sent him for a Watchman valve but that did not materialize. He has been recommended to just continue anticoagulation. Overall, it seems that he is doing okay. No new concerns. No angina or any cardiac symptoms. [facility] Medical History Tricuspid regurgitation Kidney disease Pleuritic chest pain Cough Hemoptysis History of CVA with residual deficit (~04/2005) History of COVID-19 (~06/2020) SDH (subdural hematoma) Essential hypertension Normally functioning cardiac pacemaker present (~2006) Atherosclerotic cardiovascular disease Hyperlipidemia GERD (gastroesophageal reflux disease) Pacemaker (~2006) Diabetes mellitus Persistent atrial fibrillation Surgical History History of heart artery stent History of craniotomy History of permanent cardiac pacemaker placement (~09/2006) Family History Father No problems noted. Mother No problems noted. Social History Household Members: None Housing: Apartment Do you presently have visiting nurse or other home services: Yes Alcohol intake: unknown Comment: able to verbalize back the need to use call perez if he needs to get OOB Patient Tobacco Use Status: Former Tobacco user Second Hand Smoke Exposure: No service: No Current occupational status: retired Review of Systems Const Denies weakness ENT Denies dizziness Card Denies chest pain, Denies chest pain with activity, Denies syncope, Denies rapid heart rate, Denies pedal edema, Denies edema, Denies leg edema, Denies lightheadedness, Denies palpitations, Denies dyspnea, Denies dyspnea on exertion and Denies orthopnea Resp Denies cough, Denies dyspnea and Denies dyspnea on exertion GI Denies hematochezia and Denies change in stool character Musc Denies abnormal gait, Denies muscle cramps, Denies muscle weakness, Denies numbness, Denies radiating pain into limb and Denies tingling Neuro Denies abnormal gait, Denies dizziness, Denies syncope, Denies numbness, Denies tingling and Denies weakness Endo Denies palpitations Physical Exam Vital Signs: Last Vital Signs Pulse 83 01/09/25 10:43 BP 122/68 01/09/25 10:43 BMI result Body Mass Index 25.2 Const General: comfortable and no acute distress Orientation/consciousness: patient oriented x3 HEENT Other: Unremarkable Head: Yes normal to inspection Neck Neck: Yes normal visual inspection Chest Chest palpation & inspection: normal inspection of the chest Resp Auscultation: clear to auscultation bilaterally Cardio Palpation: normal PMI Heart sounds: S1 normal heart sound present, S2 normal heart sound present, no gallops, no murmurs and no rubs GI Palpation (GI): Soft to palpation Back/Spine/Pelvis Other: unremarkable Skin General skin exam: no rashes or lesions noted Neuro General: patient oriented x3 Extrem General: Yes normal to inspection Psych Mental Status: mental status grossly normal Office Procedures EKG Details: EKG with ventricular paced rhythm at 83/Min; underlying atrial fibrillation. [id number], Complete Assessment & Plan Assessment & Plan (1) Atherosclerotic cardiovascular disease: Code(s): I25.10 - Atherosclerotic heart disease of qagan tayagungin coronary artery without angina pectoris Category: Medical Plan: Cardiac [id number]-status post diagonal stent, KRISTIE; nonobstructive disease LAD; moderate small-vessel disease in circumflex and RCA to be medically managed Continue beta-blockers and statins. He has a history of subdural bleed. Hence no need for antiplatelet agents in addition to Eliquis. Last available LDL cholesterol 59 mg/dL. Overall, remains stable. (2) Persistent atrial fibrillation: Code(s): I48.19 - Other persistent atrial fibrillation Category: Medical Plan: On Coreg/Eliquis. He was seen by EP for Watchman evaluation but recommended to just continue anticoagulation. (3) Chronic right heart failure: Code(s): I50.812 - Chronic right heart failure Category: Medical Plan: No changes in diuretics. He is listed to be on both furosemide and torsemide. We will need to clarify that with pharmacy. (4) Pericardial effusion: Code(s): I31.3 - Pericardial effusion (noninflammatory) Category: Medical Plan: Small pericardial effusion thought to be related to renal insufficiency. No intervention required. (5) Essential hypertension: Code(s): I10 - Essential (primary) hypertension Category: Medical Plan: Stable. No changes. (6) Normally functioning cardiac pacemaker present: Onset Date: ~2006 Comment: (Medtronic SCPP - placed 2006, generator change 2013) Code(s): Z95.0 - Presence of cardiac pacemaker Category: Medical Plan: Status post generator change 09/2022. Normal function. Plan Discussion Notes I discussed with the patient the current status of his pacemaker and confirmed that no changes are necessary at this time. We will contact the pharmacy to verify the patient's medication regimen, ensuring adherence to prescribed cardiac medications. Patient was informed and verbally consented to the use of an ambient scribe for clinic note documentation during this visit. Coding Level of Care Code Est Pt Level 4 (86915) Complex EM visit Add On G2211 Diagnoses Atherosclerotic cardiovascular disease I25.10 Persistent atrial fibrillation I48.19 Chronic right heart failure I50.812 Pericardial effusion I31.3 Essential hypertension I10 Normally functioning cardiac pacemaker present Z95.0 CPT Codes EKG - CPT: 71300-[id number], Complete ([id number])
--- OUTSIDE RECORDS SUMMARY | 2025-01-09 11:34 | XMS_ITS | Clinical Summary ---
Author Organization [employer] Address [address] [place] [address] [address] [place] [address] Care Team Providers Care Personnel Clerks Supervisor Name Role Phone Name, Juan M BLUE Primary Care Provider Gita Girard PharmD Unavailable [phone] Allergies Active Allergy Reactions Criticality Noted [...] times daily. Active lidocaine (Lidoderm) 5 % patchIndications: Right-sided low back pain without sciatica, unspecified chronicity APPLY 1 PATCH TOPICALLY TO SKIN IN THE MORNING. 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 If no response after 15 minutes administer an additional dose via 2nd device into other nostril. 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 (BG < 70 mg/dL). Check BG again after 15 minutes and repeat dose if needed. 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),Right-s ided low back pain without sciatica, unspecified chronicity,Insomn ia, unspecified type TAKE 1 TABLET BY MOUTH EVERY EVENING 90 tablet 1 025 Active carvedilol (Coreg) 3.125 MG tabletIndications :Chronic cough,Hypertensio n, unspecified type,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 Use as directed for CGM 1 each 025 Active Continuous Glucose Sensor (FreeStyle Elizabeth 3 Plus Sensor) miscIndications:D iabetes mellitus type 2 with complications (CMS/HCC) Apply 1 every 15 days as directed for CGM 2 each Active glucose blood (FreeStyle Precision David Test) test stripIndications: Diabetes mellitus type 2 with complications ([facility]/HCC) Use to test blood sugar up to 4 times daily, as directed 100 each Active insulin aspart (NovoLOG FLEXPEN) 100 UNIT/ML penIndications:Di abetes mellitus type 2 with complications (CMS/HCC) Inject 0 to 10 units subQ with meals per sliding scale: BG < 150 = 0 units, BG 151-200 = 2 units, 201-250 = 4 units, 251-300 = 6 units, 301-350 = 8 units, >351 = 10 units 15 mL 5 025 Active insulin degludec (Tresiba FlexTouch) 100 UNIT/ML injectionIndicati ons:Diabetes mellitus type 2 with complications ([facility]/HCC) Inject 10 Units under the skin at bedtime. 15 mL Active fluticasone (Flonase) 50 MCG/ACT nasal spray Administer 2 sprays into each nostril Once per day. Active spironolactone (Aldactone) 25 MG tablet TAKE 1/2 TABLET BY MOUTH EVERY MORNING 15 tablet 1 025 Active torsemide (Demadex) 20 MG tablet TAKE 4 TABLETS BY MOUTH EVERY MORNING 120 tablet 1 Active Acetaminophen Extra Strength 500 MG tablet TAKE 1 TABLET BY MOUTH EVERY 8 HOURS NEEDED FOR MILD PAIN 90 tablet Active lidocaine (Lidoderm) 5 % patchIndications: Other chronic pain Apply 1 patch topically if needed each day for moderate pain. Remove & discard patch within 12 hours or as directed by provider. 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 Do not crush or chew. 90 capsule 025 Active sildenafil (Viagra) 50 MG tablet Take 1 tablet (50 mg) by mouth if needed each day for erectile dysfunction. 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),Right-s ided low back pain without sciatica, unspecified chronicity,Insomn ia, unspecified type TAKE 1 CAPSULE BY MOUTH EVERY MORNING WITH FOOD 90 capsule 025 2024 Discontinued(R eorder (will not trigger notification to Pharmacy)) spironolactone (Aldactone) 25 MG tablet TAKE 1/2 TABLET BY MOUTH EVERY MORNING 15 tablet 1 025 2024 Discontinued torsemide (Demadex) 20 MG tablet TAKE 4 TABLETS BY MOUTH EVERY MORNING 120 tablet 1 025 2024 Discontinued Acetaminophen Extra Strength 500 MG tablet TAKE 1 TABLET BY MOUTH EVERY 8 HOURS NEEDED FOR MILD PAIN 90 tablet 025 2024 Discontinued traMADol (Ultram) 50 MG tabletIndications :Chronic bilateral low back pain without sciatica,Osteoart hritis of lumbar spine, unspecified spinal osteoarthritis complication status Take 0.5 tablets (25 mg) by mouth every 12 (twelve) hours if needed for severe pain for up to 10 days. 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); Right-sided low back pain without sciatica, unspecified chronicity; Insomnia, unspecified type 12/27/2024 11:15 AM EDT Office Visit [facility] MEDICINE [address] [place] [address] Juan M Rogers MD Diabetes mellitus type 2 with complications ([facility]) (Primary Dx); Chronic bilateral low back pain without sciatica; Osteoarthritis of lumbar spine, unspecified spinal osteoarthritis complication status; Other chronic pain; Stage 3b chronic kidney disease ([facility]); Bruising 12/27/2024 Travel 12/26/2024 Telephone [facility] MEDICINE [address] [place] [address] Juan M Rogers MD Chart Prep 12/25/2024 Refill [facility] MED & PEDS [address] [place] [address] Juan M Rogers MD 12/21/2024 Refill [facility] MEDICINE [address] [place] [address] Juan M Rogers MD 12/12/2024 Telephone [facility] MED[facility]INE [address] [place] [address] Gita Girard, Kita 12/12/2024 Travel 12/10/2024 11:00 AM EDT Office Visit [facility] ADULT DENTAL [address] [place] [address] Charo Stephens 12/09/2024 Telephone [facility] ADULT DENTAL [address] [place] [address] Cathi Saul rs cancelled same day appt 11/22/2024 Telephone [facility] MED[facility]INE [address] [place] [address] Juan M Rogers MD Nurse Triage 11/08/2024 Telephone [facility] ADULT DENTAL [address] [place] [address] Cathi Saul rs same day cancellation 11/04/2024 Refill [facility] MED & PEDS [address] [place] [address] Juan M Rogers MD 10/21/2024 Telephone [facility] MEDICINE [address] [place] [address] Juan M Rogers MD 10/20/2024 Refill [facility] MED[facility]INE [address] [place] [address] Juan M Rogers MD from Last 3 Months Immunizations Immunization Administration Dates Next Due Hep B, adult [...] drink = 0.6 oz pur e alcohol) Alcohol Answer Date Recorded Frequency of Alcohol Consumption Not on file 06/09/2023 Average Number of Drinks Not on file 023 Frequency of Binge Drinking Not on file 05/20 Score 0 06/09/2023 Depression Answer Date Recorded Patient Health Questionnaire-9 Score 0 12/27/2024 Patient Health Questionnaire-9 Score 0 12/27/2024 Last PHQ-9: Questionnaire Data Not on file 0 12/27/2024 Housing Stability Answer Date Recorded What is [...] Date Recorded Patient Health Questionnaire-2 Score 0 12/27/2024 Internet Access Answer Date Recorded Internet Access [...] Sign Reading Time Taken Comments Blood Pressure 130/78 12/27/2024 11:25 AM EDT Pulse 85 12/27/2024 11:25 AM EDT Temperature 36.7 C (98.1 F) 12/27/2024 11:25 AM EDT Respiratory Rate 18 12/27/2024 11:25 AM EDT Oxygen Saturation 96% 12/27/2024 11:25 AM EDT Inhaled Oxygen Concentration - - Weight 74.6 kg (164 lb 6.4 oz) 12/27/2024 11:25 AM EDT Height 170.2 cm (5' 7 ) 12/27/2024 11:25 AM EDT Body Mass Index 25.75 12/27/2024 11:25 AM EDT Plan of Treatment Upcoming Encounters Date Type Department Care Team (Late st Contact Info) Description 06/23/2025 11:30 AM EST Medication Management [facility] MEDICINE [address] [place] [address] Gita Girard, PharmD [address] [place] [address] 06/25/2025 10:00 AM EST Office Visit [facility] ADULT DENTAL [address] [place] [address] Tima Ortegaaris [address] [place] [address] Health Maintenance Due Date Last Done Comments Hepatitis A Vaccines (1 of 2 - Risk 2-dose series) 1960 Hepatitis B Vaccines (1 of 3 - Risk 3-dose series) 2001 Zoster Vaccines (3 of 3) 10/27/2022 09/01/2022, 07/20 Diabetes: Urine Protein Screening 04/18/2023 04/18/2022, 04/18/2022, 10/18/2021, Additional history exists Lipid Panel 09/17/2023 09/16/2022, 02/10/2020 COVID-19 Vaccine ( season) 2024 04/28/2021, 09/04/2020, 08/07/2020 Dental Oral Exam 10/30/2024 05/01/2024, , 01/22/2016, Additional history exists Influenza Vaccine (#1) 2025 , 04/12/2023, 03/07/2022, Additional history exists Dental X-Ray: Bitewings 04/06/2025 04/05/2024, 12/12 Dental Prophylaxis 06/12/2025 12/10/2024, 1 07/01/2023, 01/22/2016, Additional history exists Diabetes: Hemoglobin A1C 06/13/202512/12/ 025, 09/04/2024, 04/24/2024, Additional history exists Diabetes: Foot Exam 09/04/2025 09/04/2024, 09/04/2024, 09/04/2024, Additional history exists SDOH Screening 09/04/2025 09/04/2024 Alcohol/Substance Use Screening 12/27/2025 12/27/2024 Depression Screening 12/27/2025 12/27/2024, 12/28/19 Tobacco Screening 12/27/2025 12/27/2024 Eye Exam 02/28/2026 02/29/2024, 02/17, 02/29/2024, Additional history exists Dental X-Ray: Full Mouth 09/05/2026 024, 03/01/2016, 12/13/2011 DTaP/Tdap/Td Vaccines (2 - Td or Tdap) 08/12/2031 08/12/2021, 12/19/1994 Pneumococcal Vaccine: 50+ Years Completed 08/12/2021, 03/23/2015, 07/29/2014, Additional history exists RSV Patients and Patients Aged 60 years or older Completed 12/18/2023 HIB Vaccines Aged Out No longer eligi ble based on patient's age to complete this topic HPV Vaccines Aged Out No longer eligi ble based on patient's age to complete this topic IPV Vaccines Aged Out No longer eligi ble based on patient's age to complete this topic Meningococcal B Vaccine Aged Out No l onger eligible based on patient's age to complete [...] prescribed. Hemoglobin A1c < 8 Result Component 6.3( 12:11 PM EDT) No Gita Girard, Kita Record your blood sugar as directed Result Component No Gita Girard PharmD Note: Monitor BG via CGM ensuring sensor is scanned at least once every 8 hours. Utilize manual SMBG as needed and as directed. 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) TOPICAL APPLICATION OF FLUORIDE - EXCLUDING VARNISH Routine 12/10/2024 11:00 AM EDT PROPHYLAXIS - ADULT Routine 12/10/2024 1 1:00 AM EDT CASE PRESENTATION, DETAILED AND EXTENSIVE TREATMENT PLANNING Routine 12/10/2024 11:00 AM EDT PERIODIC ORAL EVALUATION - ESTABLISHED PATIENT Routine 05/01/2024 2:00 PM EST BITEWINGS - 4 RADIOGRAPHIC IMAGES Routine 04/05/2024 3:00 PM EDT PANORAMIC RADIOGRAPHIC IMAGE Routine 09/05/2023 11:00 AM EDT LIPID PANEL, STANDARD Routine 09/16/2022 9:26 AM EDT ZZZ HISTORICAL MICROALBUMIN/CREATIN INE RATIO, RANDOM URINE Routine 04/18/2022 8:43 AM EDT from Last 3 Months or Most Recently Relevant to Health Maintenance Results * POCT Glucose (12/27/2024 11:26 AM EDT) Glucose Blood, POC 112 60 - 200 mg/dL QC Media Lot # [id number] Lot# Expiration Date Blood Capillary blood specimen / Unknown 12/27/2024 11:26 AM EDT us Juan M Rogers MD POINT OF CARE TEST ENTER/EDIT OR DERABLES Final Result * (ABNORMAL) POCT HGB A1C (12/12/2024 12:11 PM EDT) Hemoglobin A1C 6.3(A) 4.0 - 6.0 % Blood 12/12/2024 12:1 1 PM EDT us uJan M Rogers MD POINT OF CARE TEST ENTER/EDIT OR DERABLES Final Result * Lipid Panel, Standard (09/16/2022 9:26 AM EDT) Triglycerides 134 mg/dL [facility] Comment:Desirable Triglyceri de: less than 150 mg/dLBorderline High Triglyceride 150-199 mg/dLHigh Triglyceride: 200-499 mg/dLVery High Triglyceride: greater than or equal to 5OO mg/dL Cholesterol 114 mg/dL [facility] Comment:Desirable Cholestero l: less than 200 mg/dLBorderline High Cholesterol: 200-239 mg/dLHigh Cholesterol: greater than 239 mg/dL LDL Cholesterol Calculated 59 mg/dl [facility] Comment:Desirable LDL: less than 100 mg/dLNear Optimal/Above Optimal LDL: 110- 129 mg/dLBorderline High LDL: 130-159 mg/dLHigh LDL: 160-189 mg/dLVery High LDL: greater than or equal to 190 mg/dL HDL Cholesterol 29 mg/dL [facility] Comment:Desirable HDL: great er than 40 mg/dL Note: This HDL assay may give artificially low results in patients with liver disease. 09/16/2022 9:26 AM EDT 09/16/2022 9:26 AM EDT [facility] External Provider LAB BLO OD ORDERABLES Final Result Performing Organization Address [facility] de Phone Number [facility] [address] [place] [phone] * (ABNORMAL) MICROALBUMIN/CREATININE RATIO, RANDOM URINE (04/18/2022 8:43 AM EDT) Creatinine Urine 93.94 mg/dL [facility] Microalbum/Creati nine Ratio Ur 27.6 ug/mg cr [facility] Comment: Albumin/Creatinine Ratio Reference Ranges: Normal: < 30 ug/mg creatinine Microalbuminuria: 30 - 300 ug/mg creatinine Clinical Albuminuria: > 300 ug/mg creatinine Microalbumin Urine 26.0 mg/L [...] Most Recently Relevant to Health Maintenance Insurance [facility] OPTIONS (HMO D-SNP) LISA FORD [id number] [facility] [facility] [place] [id number] [place] [id number] Advance Directives Documents on File Type Date Recorded Patient Book Shelver Expl anation HealthCare Proxy 06/28/2023 HEALTHCARE PROXY 06/13/23 Care Teams Personnel Clerks Supervisor Relationship Specialty Start Date End Date Name, MD Juan M [address] [place] [id number] PCP - General Family Medicine 01/21/19 Gita Girard PharmD [address] [place] [phone] Pharmacist Internal Medicine 07/14/22 [employer] 10/28/24
--- OUTSIDE RECORDS SUMMARY | 2025-01-09 11:34 | XMS_ITS | Patient Health Record ---
Author Organization [employer] Address [address] [place] [address] Care Team Providers Care Hearing Aid Consultant Name Role Phone Bonnie BLUE, Lanette Primary Care Provider Unavail able Ramana Mcginnis Unavailable [phone] Reason For Referral No Information Plan Of Treatment No Information Insurance Providers Payer Name Payer Address Payer Phone Subscriber Number Group Number Insured Name Patient Relationship to Insured Coverage Start Date Coverage End Date [facility] [address] [place] [address] WILL CALL BACK NAVYA MEZA Self - patient is the insured
--- OUTSIDE RECORDS SUMMARY | 2025-01-09 11:34 | XMS_ITS | Data Portability ---
Author Organization eOriginal [facility], [facility] Address [address] [place] [address] Care Team Providers Care Electric Power Machine Operator Name Role Phone [facility] OTHER [facility] MIGDALIA OTHER Assessment Encounter Date Assessment Date Assessment LastModified by Organization Details LastModified Time 01/23/2024 01/23/2024 As noted, we were called to see this patient regarding concerns of rash.Evaluation in the field was performed by my operator coating furnace colleague, as noted above, I provided real-time [...] serious symptoms, particularly open lesions or pain [email or web address] Not available 01/23/2024 10:53:55 06/21/2024 06/21/2024 I have reviewed and agree with the assessment and plan as documented by the operator coating furnace. I provided real-time medical direction for this [...] flags discussed. paysola Not available 06/21/2024 18:26:26 07/15/2024 07/15/2024 As noted, we were called to see this patient regarding concerns of cough. Evaluation in the field was performed by my operator coating furnace colleague, as noted above, I provided real-time direction and supervision for this visit. The evaluation revealed An 83 year old male with a past medical history of Hypertension, Chronic Kidney Disease, Diabetes Mellitus Type 2, Coronary Artery Bypass Grafting (CABG), Coronary Artery Disease, and a pacemaker on [facility] who presents with sore throat and cough. [...] not a candidate for Paxlovid pt on [facility] Primary care, consider f/u clinical status [...] serious symptoms, particularly SOB or chest pain Not available 07/15/2024 20:49:23 Plan of Treatment Reminders Order Date Submit Date Provider Last Modified By Organization Details Last Modified Time Details Appointments None recorded. Lab rapid SARS CoV 2 Ag, QL IA, respiratory specimen 2024 025 [email or web address], [id number] 20:20:28 rapid flu (A+B) 2024 025 [email or web address] 7 [facility], [address] [place] [address], [id number] 5 20:20:28 rapid strep group A, throat 2024 025 [email or web address] 7 [facility], [address] [place], [address] 5 20:20:28 Referral None recorded. Procedures None recorded. Surgeries None recorded. Imaging None recorded. Medication Orders clotrimazol e 1 % topical cream [address] [facility], [address] [place] [address], [id number], 4 10:46:07 Patient TargetsNo targets recorded. Patient [...] Name and Address Organization Details Recorded Time 91784 ibuprofen medicatio n Not available Not available [...] blood by Pulse oximetry Body weight Systolic And Diastolic Provider Name and Address Organization Details Last Updated DateTime 5 98.7 [degF] 19 /min 170.18 cm 81 /min 99 % 99 % 72339.0 88 g 166/74 mm[Hg] Not Available [employer] (Inspect Manager) 5 18:23:39 Date Recorded Heart rate Oxygen saturation Oxygen saturation in Arterial blood by Pulse oximetry Body height Respiratory rate Body temperature Body weight Systolic And Diastolic Provider Name and Address Organization Details Last Updated DateTime 5 88 /min 99 % 99 % 170.18 cm 18 /min 98.7 [degF] 78114.6 8 g 162/81 mm[Hg] Not Available [employer] (Inspect Manager) 5 20:17:40 Date Recorded Body temperature Oxygen saturation Oxygen saturation in Arterial blood by Pulse oximetry Respiratory rate Heart rate Systolic And Diastolic Provider Name and Address Organization Details Last Updated DateTime 4 97.6 [degF] 96 % 96 % 16 /min 79 /min 149/63 mm[Hg] Not Available [facility] - production 10:41:48 Social History None recorded. Functional Status None recorded. Mental Status None recorded. Family History Nothing Reported. Medical History No medical history recorded. Past Encounters Encounter ID Performer Location Encounter Start Date Encounter Closed Date Diagnosis/Indication Diagnosis SNOMED-CT Code Diagnosis ICD10 Code Diagnosis Note [id number] Reagan Rodríguez MD [facility] [address] [place] [phone] 01/23/2024 10:41:42 01/23/2024 11:11:17 Tinea cruris 654839245 B35.6 isolated to groin, plan [place] antifungal s [id number] Isatu Medeiros MD [facility] [address] [place] [phone] 06/21/2024 18:23:38 06/21/2024 22:05:46 Sore nipple 999298599 N64.59 [id number] JANET STUART MD [facility] [address] [place] [phone] 07/15/2024 20:17:33 07/15/2024 21:31:59 Acute COVID-19 2498577647 U07.1 Health Concerns Section Related Observation LastModified by Organization Detai ls LastModified Time None Recorded Concern Status LastModified by Organization Details LastModified Time None Recorded Advance Directives Directive None Recorded Payers Insurance Date Sequence Insurance Name Policy Number Policy Willingham Covered Member ID Willingham Member ID Guarantor Name 07/15/2024 1 [facility] - DOS ON OR AFTER 2022 - DUAL ELIGIBLE - CUSTODIAL OPTIONS AND ONE CARE (MEDICARE REPLACEMENT/ADV ANTAGE - HMO) Dk Sepulveda [id number] Dk Sepulveda Notes Date Note Type Note Provider Name and Address Organization Details Recorded Time 01/23/2024 text/html HPI: Patient with complaints of rash inner thighs and scrotum area. ASSET MANAGER reports flat red like a jig saw puzzle no bleeding. ...................... ...................... ...................... ...................... ...................... ...................... ......... CRC Nurse Triage Notes (Asia Davenport): Chief Complaints: Rash PMH: Diabetes, Hypertension Other Allergies: NSAIDS Comments: CRC RN DID NOT NEED FURTHER INFO 1999: Unable to reach member (2 separate attempts made) to reschedule appointment d/t capacity issues. Member called with inverted block operator services. VM left by inverted block operator explaining to member that he would be rescheduled for evaluation tomorrow, 01/22/24. Education provided on the response time and the member was advised to monitor reported s/s and seek emergency treatment if needed. ...................... ...................... ...................... ...................... ...................... ...................... ......... Hand Stripper Note From Contreras Wheatley: Pt reports several days of itchy rash in his inner thighs/groin. Pt denies drainage, f/n/v/d. Pt is alert, NAD. VSS. Afebrile. Non focal neuro exam. Normal gait. Bilateral erythema and smell c/w cutaneous candidiasis. [facility] to send rx to pharmacy. Pt to f/u with PCP. ...................... ...................... ...................... ...................... ...................... ...................... ......... Disposition: Fulfilled Reagan Rodríguez MD [address] [facility],[address], [place], [address], [employer] SCHMITT 01/23/2024 10:55:06 06/21/2024 text/html HPI: Patient reports [...] ...................... ...................... ...................... ...................... ...................... ...................... ......... Hand Stripper Note From Maribel Arcos: Pt chief complaint [...] 4/10. Pt CAOX4 with a GCS of 15.[facility] isatu medeiros consulted.Pt informed of possible chaffing of the area. Pt I aguirre to use lotion/ Vaseline on the area for a protective barrier as well as to wear less abrasive material on his upper body.Pt told to co tact his pcp if pain persists after x1 week of [facility] visit. Pt educated on red flag S&S and told to seek medical assistance if any present. ...................... ...................... ...................... ...................... ...................... ...................... ......... [facility] Consulted: Isatu Medeiros ...................... ...................... ...................... ...................... ...................... ...................... ......... Disposition: Fulfilled Isatu Medeiros MD [address] [place] [address],[address], [place], [address], [facility] [employer] 06/21/2024 19:19:21 07/15/2024 text/html ROS as noted in the HPI [facility] Nurse Triage Notes (Lanette Costa - RN): Reason For Request: Patient doesn't look well ,doesn't feel well, after a bath and food patient just has a cough, eyes are red, and throat pain temp 98.4. Patient Reports: CoughDenies: Increased work of breathing/labored with or without fever Unable to speak in full sentences without distress Discoloration of skin -cyanosis Needs to sleep sitting up, can t catch breath Shortness of breath in setting of confusion Chief Complaints: Sore throatPMH: Hypertension, Chronic Kidney Disease, Diabetes Mellitus Type 2, Coronary Artery Bypass Grafting (CABG), Coronary Artery Disease, OtherPMH Reviewed at 07/15/2024:17Allergies Reviewed at 07/15/2024 - 13:17Comments: Other PMH: PacemakerSymptoms of cough, sore throat and weakness starting 2 days ago. Temp 98.4 today. Cough is non-productive. Patient has nasal congestion. Denies chest pain or shortness of breath. Taking Tylenol as needed. last dose at 1030am today. Education provided on the response time and the member was advised to monitor reported s/s and seek emergency treatment if needed. Hand Stripper Organization Information for Merrick Gibbs Rosa Elena Patel Legal Name: [employer]. Address: [address] [place] [address], [facility]: Nando Reyes [facility] No[facility] [id number] Hand Stripper POC Test Results from Merrick Gibbs CHALINO Rapid COVID antigen (20:14:15)COVID: + Rapid influenza antigen (20:14:15)Flu: - Rapid strep test (20:14:16)Strep: - ...................... ...................... ...................... ...................... ...................... ...................... ......... Hand Stripper Note From Merrick Gibbs: SC1 dispatched to the above address for the pt reporting a sore throat since Monday the . The pt was called through the [employer] system and he came from the 3rd [...] ...................... ...................... ...................... ...................... ...................... ...................... ......... [facility] Consulted: Janet Stuart ...................... ...................... ...................... ...................... ...................... ...................... ......... Disposition: Fulfilled JANET STUART MD [address] [facility],[address], [place], [address], ARTIS MEIER 07/15/2024 20:50:13
--- OUTSIDE RECORDS SUMMARY | 2025-01-09 11:34 | XMS_ITS | Encounter Summary ---
Author Organization [facility] Address [address] [place] [phone] Phone Care Team Providers Care Machine Etcher Name Role Phone Anthony Ramirez MD Primary Care Provider Unav ailable Encounter Details Date Type Department Care Team (Late st Contact Info) Description 11/22/2016 Office Visit [facility] [address] [place], [place] [phone] Provider, MD Cindy [address] [place] [address] Social History Tobacco Use Types Packs/Day [...] on filedocumented in this encounter Care Teams Machine Etcher Relationship Specialty Start Date End Date Anthony Ramirez MD PCP - General 07/06/16 documented as of this encounter
--- OUTSIDE RECORDS SUMMARY | 2025-01-09 11:34 | XMS_ITS | Encounter Summary ---
Author Organization [facility] Address [address] [facility] [address] [place] [address] Phone Care Team Providers Care Psychiatrist Name Role Phone Name, Juan M BLUE Primary Care Provider [phone] Reason for Visit * Reason Comments Med Refill Encounter Details Date Type Department Care Team ([facility] Contact Info) Description 02/14/2022 Refill [facility] [address] [facility] [address] [place] [address] Colt Alfonso MD Social History [...] Upcoming Encounters Date Type Department Care Team ([facility] Contact Info) Description 03/17/2025 3:00 PM EDT Office Visit [facility] [address] [place] [address] [place] [address] Arpit Bundy MD [address] [facility] [address] [place] [phone] documented as of this encounter Visit Diagnoses Not on filedocumented in this encounter Care Teams Psychiatrist Relationship Specialty Start Date End Date Name, MD Juan M [address] [place] [address] [phone] PCP - General Internal Medicine 09/29/20 documented as of this encounter
== END 2025-01-09 11:09 | disposition home or self-care (01) ==
LOC: HO.HCS 10:42
PROVIDERS: PCP Internal Medicine Geriatric Medicine; Visit Provider Internal Medicine
DX: I25.10 Atherosclerotic heart disease of native coronary artery without angina pectoris (principal); I48.19 Other persistent atrial fibrillation; I50.812 Chronic right heart failure; I31.39 Other pericardial effusion (noninflammatory); I10 Essential (primary) hypertension; Z95.0 Presence of cardiac pacemaker
CPT/HCPCS: 93010; 99214; G2211

== ENCOUNTER → 2025-01-09 10:41 | Outpatient (BNVA) | payer OTHER, SELFPAY | PROVIDERS: PCP Internal Medicine Geriatric Medicine; Visit Provider Internal Medicine | DX: I48.19 Other persistent atrial fibrillation (principal); I50.812 Chronic right heart failure; I25.10 Atherosclerotic heart disease of native coronary artery without angina pectoris; I10 Essential (primary) hypertension; I31.39 Other pericardial effusion (noninflammatory); R94.39 Abnormal result of other cardiovascular function study; Z98.890 Other specified postprocedural states; Z95.5 Presence of coronary angioplasty implant and graft; Z79.01 Long term (current) use of anticoagulants; Z95.0 Presence of cardiac pacemaker | CPT/HCPCS: 93005; 99212 ==

== ENCOUNTER → 2025-02-10 23:59 | Outpatient (BNV) | payer OTHER, SELFPAY ==
--- NOTE | 2025-02-13 20:49 | A.OFFVIS_ITS ---
Intake Visit Reasons: Remote device check- Medtronic Allergies NSAIDS due to CKD Allergy (Unknown, Uncoded 10/14/24 09:10) n/a [facility] Medical History Tricuspid regurgitation Kidney disease Pleuritic chest pain Cough Hemoptysis History of CVA with residual deficit (~04/2005) History of COVID-19 (~06/2020) SDH (subdural hematoma) Essential hypertension Normally functioning cardiac pacemaker present (~2006) Atherosclerotic cardiovascular disease Hyperlipidemia GERD (gastroesophageal reflux disease) Pacemaker (~2006) Diabetes mellitus Persistent atrial fibrillation Surgical History History of heart artery stent History of craniotomy History of permanent cardiac pacemaker placement (~09/2006) Family History Father No problems noted. Mother No problems noted. Social History Household Members: None Housing: Apartment Do you presently have visiting nurse or other home services: Yes Alcohol intake: unknown Comment: able to verbalize back the need to use call perez if he needs to get OOB Patient Tobacco Use Status: Former Tobacco user Second Hand Smoke Exposure: No service: No Current occupational status: retired Office Procedures Cardiac Device Check Cardiac Device Check Details: Date of service- 02/10/2025 ; Battery life >10 years; normal lead parameters; ELECTROCARDIOGRAPHIC TECHNICIAN 100%; no significant arrhythmias. Overall normal device function. [id number] Cardiac Device Interrogation, pacemaker Procedure code (CPT) selection complete Assessment & Plan Assessment & Plan (1) Pacemaker: Onset Date: ~2006 Comment: (Medtronic SCPP - placed 2006, generator change 2013) Code(s): Z95.0 - Presence of cardiac pacemaker Category: Medical (2) Persistent atrial fibrillation: Code(s): I48.19 - Other persistent atrial fibrillation Category: Medical Plan x Coding Level of Care Code Procedure Only Diagnoses Pacemaker Z95.0 Persistent atrial fibrillation I48.19 CPT Codes Cardiac Device Check - Cardiac Device 12: [id number] Cardiac Device Interrogation, pacemaker ([id number])
== END ==
PROVIDERS: PCP Internal Medicine Geriatric Medicine; Visit Provider Internal Medicine
DX: I48.19 Other persistent atrial fibrillation (principal); Z95.0 Presence of cardiac pacemaker
CPT/HCPCS: 93294

== ENCOUNTER 2025-03-10 10:03 | Outpatient (REF) | payer OTHER, SELFPAY ==
--- NOTE | ~2025-03-10 | CT_ITS ---
EXAMINATION: CT CHEST WITHOUT IV CONTRAST INDICATION: J98.59 - Other diseases of mediastinum, not elsewhere classified COMPARISON: Comparison is made with the prior examination dated 02/21/2024. TECHNIQUE: Helical CT scan of the chest was performed without intravenous contrast. Coronal and sagittal reformatted images were generated and reviewed. This CT exam was performed with one or more of the following dose reduction techniques: automated exposure control, adjustment of the mA and/or kV according to patient size, use of iterative reconstruction technique. DLP: 134 mGy-cm CHEST: THYROID: The thyroid is unremarkable. LUNGS: There are mild emphysematous changes. There are no airspace opacities or pulmonary nodules. MEDIASTINUM: Again seen is a lobulated soft tissue mass in the anterior mediastinum which measures 5.6 x 3.4 x 5.5 cm on the current study (previously 5.1 x 3.6 x 5.4 cm). There is a 1.5 cm superior mediastinal lymph node. SATNAM: Evaluation of the hilar regions is limited by lack of intravenous contrast material. CARDIOVASCULATURE: The heart is enlarged. 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 There is a pericardial effusion measuring up to 1.8 cm in thickness (previously 1.6 cm). The thoracic aorta is normal in caliber. DEGREE OF CORONARY CALCIFICATION: severe PLEURA: There is no pleural effusion. No pneumothorax. MAIN AIRWAYS: The mainstem bronchi and proximal branches are patent. AXILLA: There are multiple bilateral axillary lymph nodes more notable for number than size. BONES AND SOFT TISSUES: Unremarkable UPPER ABDOMEN: The liver again demonstrates a somewhat nodular contour, suggestive of cirrhosis. There is a 2.4 cm hypodensity in the left lobe. The spleen is enlarged. There is cholelithiasis. The adrenal glands are unremarkable. CT/CT chest wo IV con IMPRESSION: 1. 5.6 x 3.4 x 5.5 cm lobulated soft tissue mass in the anterior mediastinum, slightly larger than on the prior study. There are adjacent enlarged mediastinal lymph nodes. 2. Cardiomegaly. Small to moderate pericardial effusion. 3. Findings suggestive of cirrhosis of the liver. 2.4 cm hypodensity in the right lobe of the liver as seen previously. 4. Splenomegaly. Cholelithiasis. Electronically signed by: Ramana Cooley MD 03/10/2025 11:42 AM EDT
--- OUTSIDE RECORDS SUMMARY | 2025-03-10 12:20 | XMS_ITS | Encounter Summary ---
Author Organization [facility] Address [address] [facility] [address] [place] [address] Phone Care Team Providers Care Cover Making Machine Operator Name Role Phone Name, Juan M BLUE Primary Care Provider [phone] Reason for Visit * Reason Comments Med Refill Encounter Details Date Type Department Care Team ([facility] Contact Info) Description 02/14/2022 Refill [facility] [address] [facility] [address] [place] [address] Colt Alfonso MD Social History [...] Upcoming Encounters Date Type Department Care Team ([facility] Contact Info) Description 03/17/2025 3:00 PM EDT Office Visit [facility] [address] [place] [address] [place] [address] Arpit Bundy MD [address] [facility] [address] [place] [phone] documented as of this encounter Visit Diagnoses Not on filedocumented in this encounter Care Teams Cover Making Machine Operator Relationship Specialty Start Date End Date Name, MD Juan M [address] [place] [phone] PCP - General Internal Medicine 09/29/20 documented as of this encounter
--- OUTSIDE RECORDS SUMMARY | 2025-03-10 12:20 | XMS_ITS | Encounter Summary ---
Author Organization [employer] Address [address] [facility] [address] [place] [address] Care Team Providers Care Mold Chipper Name Role Phone Name, Juan M BLUE Primary Care Provider [phone] Gita Girard PharmD Unavailable [phone] Reason for Visit * Reason Onset Date Comments rs cancelled same day appt 12/09/2024 Encounter Details Date Type Department Care Team (Late st Contact Info) Description 12/09/2024 Telephone [facility] ADULT DENTAL [address] [place] [address] Cathi Saul rs cancelled same day appt Social History Tobacco Use Types Packs/Day Years [...] encounter Miscellaneous Notes * Telephone Encounter - Lupe Sinha - 12/09/2024 10:09 AM EDT Patient called in to reschedule same day cancellation visit. Patient informed there is a waiting period prior to rs for same day cancellation. However schedule for provider is booked through end of year. Patient informed office will call for rescheduling when able to do so after waiting period DR documented in this encounter Plan of Treatment Upcoming Encounters Date Type Department Care Team (Late st Contact Info) Description 04/22/2025 10:00 AM EST Office Visit [facility] MEDICINE [address] [place] [address] Name, MD Juan M [address] [place] [address] 06/05/2025 10:30 AM EST Office Visit [facility] OPTOMETRY [address] [place] [address] Leslie Urrutia, OD [address] [place] [address] 06/23/2025 11:30 AM EST Medication Management [facility] MEDICINE [address] [place] [address] Gita Girard PharmD [address] [place] [address] 08/07/2025 10:15 AM EST Office Visit [facility] ADULT DENTAL [address] [place] [address] Cathi Saul documented as of this encounter Goals Goal Patient Goal Type Associated Problems Recent Progress Patient-Stated? Author Patient will adhere to medication regimen General No Gita Girard PharmD Note: Take medications, including insulin, as prescribed. Hemoglobin A1c < 8 Result Component 6.3( 12:11 PM EDT) No Gita Girard PharmD Record [...] documented as of this encounter Care Teams Mold Chipper Relationship Specialty Start Date End Date Name, MD [place] [address] PCP - General Family Medicine 01/21/19 Gita Girard [place] [address] Pharmacist Internal Medicine 07/14/22 [employer] 10/28/24 documented as of this encounter
--- OUTSIDE RECORDS SUMMARY | 2025-03-10 12:20 | XMS_ITS | Clinical Summary ---
Author Organization [employer] Address [address] [place] [address] [address] [place] [address] Care Team Providers Care Sous Chef Kitchen Manager Name Role Phone Name, Juan M BLUE Primary Care Provider [phone] Gita Giarrd PharmD Unavailable [phone] Allergies Active Allergy Reactions Criticality Noted [...] 11/08/2 024 Active glucose 4 g chewable tabletIndication s: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) Chew 4 tablets (16 g) if needed for low blood sugar. (BG < 70 mg/dL). Check BG again after 15 minutes and repeat dose if needed. 20 tablet 5 024 2024 Active Pentips Generic Pen [place] 32G X 4 MM miscIndications: Diabetes mellitus type 2 with complications ([facility]/HCC) USE DIRECTED FOUR TIMES DAILY 100 each 024 Active Alcohol Swabs (Alcohol Prep) 70 % padsIndications: Diabetes mellitus type 2 with complications ([facility]/HCC) USE FOUR TIMES DAILY 100 each 025 Active TRUEplus Lancets 33G miscIndications: Type 2 diabetes mellitus with unspecified complications ([facility]/HCC) TEST BLOOD SUGAR FOUR TIMES DAILY DIRECTED 100 each 025 Active Continuous Glucose Welfare [facility] Manager (FreeStyle [place] 3 [place]) deviceIndication s:Diabetes mellitus type 2 with complications ([facility]/HCC) 1 each Once per day. Use as directed for CGM 1 each Active Continuous Glucose Sensor (FreeStyle Elizabeth 3 Plus Sensor) miscIndications: Diabetes mellitus type 2 with complications ([facility]/HCC) Apply 1 every 15 days as directed for CGM 2 each 025 Active glucose blood (FreeStyle Precision David Test) test stripIndications :Diabetes mellitus type 2 with complications ([facility]/HCC) Use to test blood sugar up to 4 times daily, as directed 100 each Active insulin aspart (NovoLOG FLEXPEN) 100 UNIT/ML penIndications:D iabetes mellitus type 2 with complications ([facility]/HCC) Inject 0 to 10 units subQ with meals per sliding scale: BG < 150 = 0 units, BG 151-200 = 2 units, 201-250 = 4 units, 251-300 = 6 units, 301-350 = 8 units, >351 = 10 units 15 mL 025 Active insulin degludec (Tresiba FlexTouch) 100 UNIT/ML injectionIndicat ions: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 15 mL 025 Active fluticasone (Flonase) 50 MCG/ACT nasal spray Administer 2 sprays into each nostril Once per day. 025 Active Acetaminophen Extra Strength 500 MG tablet TAKE 1 TABLET BY MOUTH EVERY 8 HOURS NEEDED FOR MILD PAIN 90 tablet 025 Active omeprazole (PriLOSEC) [address] Andrzej ns:Chronic cough,Hypertensi on, unspecified type,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),Right- sided low back pain without sciatica, unspecified chronicity,Insom andrew, unspecified type Take 1 capsule (20 mg) by mouth Once per day. Do not crush or chew. 90 capsule 025 Active rosuvastatin (Crestor) 10 MG tabletIndication s:Hypertension, unspecified type,Chronic cough,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),Right- sided low back pain without sciatica, unspecified chronicity,Insom andrew, unspecified type TAKE 1 TABLET BY MOUTH EVERY EVENING 90 tablet 1 025 Active traMADol (Ultram) 50 MG tabletIndication s:Low back pain, unspecified back pain laterality, unspecified chronicity, unspecified whether sciatica present Take 1 tablet (50 mg) by mouth Once daily as needed for severe pain. 7 tablet 025 Active Diclofenac Sodium 1 % gel Apply to affected area once daily as needed for pain 150 g 1 025 Active amLODIPine (Norvasc) 2.5 MG tabletIndication s:Hypertension, unspecified type TAKE 1 TABLET BY MOUTH EVERY MORNING 90 tablet 025 Active carvedilol (Coreg) 3.125 MG tabletIndication s:Hypertension, unspecified type,Chronic cough,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),Right- sided low back pain without sciatica, unspecified chronicity,Insom andrew, unspecified type TAKE 1 TABLET BY MOUTH TWICE DAILY IN THE MORNING AND IN THE EVENING WITH FOOD 180 tablet 025 Active spironolactone (Aldactone) 25 MG tablet TAKE 1/2 TABLET BY MOUTH EVERY MORNING 15 tablet 025 Active torsemide (Demadex) 20 MG tablet TAKE 4 TABLETS BY MOUTH EVERY MORNING 120 tablet 025 Active amLODIPine (Norvasc) 2.5 MG tabletIndication s:Hypertension, unspecified type TAKE 1 TABLET BY MOUTH EVERY MORNING 90 tablet 1 025 2024 Discontinued carvedilol (Coreg) 3.125 MG tabletIndication s:Chronic cough,Hypertensi on, unspecified type,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),Right- sided low back pain without sciatica, unspecified chronicity,Insom andrew, unspecified type TAKE 1 TABLET BY MOUTH TWICE DAILY IN THE MORNING AND IN THE EVENING WITH FOOD 180 tablet 1 025 2024 Discontinued spironolactone (Aldactone) 25 MG tablet [...] 05/26/2022 Insomnia 05/26/2022 Low back pain 05/26/2022 Assessment & Plan (01/30/2025 2:29 PM EDT): - patient adamantly denies hip pain, but also does not call it back pain, rather buttock pain - symptoms most consistent with lumbar DDD and/or muscle strain - continue home back exercise - he has already tried lidoderm and acetaminophen, which gave him marginal relief - Rx tramadol for short-term supply. It seems like 7 tabs lasted 1 mo. 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 Although patient has CKD, the risk of systemic absorption affecting kidney function is low. 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 Pericardial effusion 05/26/2022 Stented coronary artery 05/26/2022 Edema 05/26/2022 Varicose veins of lower extremity 05/26/2022 Venous intermittent claudication 05/26/2022 History of cerebrovascular accident with residua l deficit 05/26/2022 History of craniotomy 05/26/2022 History of subdural hematoma 05/26/2022 Renal osteodystrophy 08/20/2020 Type 2 diabetes mellitus with hyperglycemia 07/21 Assessment & Plan (02/03/2025 4:47 PM EDT): - A1c 6.3% on 12/12/2024 Tinnitus 07/18/2013 Varicocele 04/24/2013 Anemia 04/20/2012 Persistent atrial fibrillation 04/20/2012 Benign prostatic hyperplasia 04/20/2012 Biliary calculus 04/20/2012 Stage 3b chronic kidney disease 04/20/2012 Chronic neck pain 04/20/2012 Essential hypertension 04/20/2012 Assessment & Plan (01/30/2025 2:24 PM EDT): - continue current treatment plan per PCP Gastroesophageal reflux disease 04/20/2012 Hyperlipidemia 04/20/2012 Resolved [...] Encounters Date Type Department Care Team Description 03/10/2025 Orders Only [facility] External Provider, [facility] 02/26/2025 Refill [facility] [address] [place] [address] Juan M Rogers MD 02/19/2025 Refill [facility] [address] [place] [address] Juan M Rogers MD Hypertension, unspecified type; Chronic cough; Diabetes mellitus type 2 with complications ([facility]/HCC); Right-sided low back pain without sciatica, unspecified chronicity; Insomnia, unspecified type 01/30/2025 9:00 AM EDT Office Visit [facility] [address] [place] [phone] Sheela Nam MD Low back pain, unspecified back pain laterality, unspecified chronicity, unspecified whether sciatica present (Primary Dx); Type 2 diabetes mellitus with hyperglycemia, with long-term current use of insulin ([facility]); Stage 3b chronic kidney disease ([facility]); Essential hypertension 01/30/2025 Travel 01/28/2025 Telephone [facility] [address] [place] [phone] Juan M Rogers MD Call Back Request 01/21/2025 Telephone [facility] [address] [place] [phone] Juan M Rogers MD Nurse Triage 01/21/2025 Refill [facility] [address] [place] [address] Juan M Rogers MD Hypertension, unspecified type; Chronic cough; Diabetes mellitus type 2 with complications ([facility]/HCC); Right-sided low back pain without sciatica, unspecified chronicity; Insomnia, unspecified type 01/03/2025 Refill [facility] [address] [place], [place] [phone] Juan M Rogers MD Chronic cough; Hypertension, unspecified type; Diabetes mellitus type 2 with complications ([facility]/HCC); Right-sided low back pain without sciatica, unspecified chronicity; Insomnia, unspecified type 12/27/2024 11:15 AM EDT Office Visit [facility] [address] [place] [phone] NameJuan M MD Diabetes mellitus type 2 with complications ([facility]) (Primary Dx); Chronic bilateral low back pain without sciatica; Osteoarthritis of lumbar spine, unspecified spinal osteoarthritis complication status; Other chronic pain; Stage 3b chronic kidney disease ([facility]); [place] 12/27/2024 Travel 12/26/2024 Telephone [facility] [address] [place] [address] Juan M Rogers MD Chart Prep 12/25/2024 Refill [facility] [address] [place], [place] [phone] Juan M Rogers MD 12/21/2024 Refill [facility] [address] [place] [address] Juan M Rogers MD 12/12/2024 Telephone [facility] [address] [place] [phone] Gita Girard, PharmD 12/12/2024 Travel 12/10/2024 11:00 AM EDT Office Visit [facility] [address] [place] [address] Charo Stephens 12/09/2024 Telephone [facility] [address] [place] [address] Cathi Saul rs cancelled same day appt from Last 3 Months Immunizations Immunization Administration [...] Sign Reading Time Taken Comments Blood Pressure 142/60 01/30/2025 9:19 AM EDT Pulse 84 01/30/2025 8:58 AM EDT Temperature 36.2 C (97.1 F) 01/30/2025 8:58 AM EDT Respiratory Rate 22 01/30/2025 8:58 AM EDT Oxygen Saturation 98% 01/30/2025 8:58 AM EDT Inhaled Oxygen Concentration - - Weight 73.7 kg (162 lb 6.4 oz) 01/30/2025 8:58 A M EDT Height 170.2 cm (5' 7 ) 12/27/2024 11:25 AM EDT Body Mass Index 25.44 12/27/2024 11:25 AM EDT Plan of Treatment Upcoming Encounters Date Type Department Care Team (Late st Contact Info) Description 04/22/2025 10:00 AM EST Office Visit [facility] [address] [place] [phone] Name, MD Juan M [address] [place] [address] 06/05/2025 10:30 AM EST Office Visit [facility] [address] [place] [address] Leslie Urrutia, OD [address] [place] [address] 06/23/2025 11:30 AM EST Medication Management [facility] [address] [place] [address] Gita Girard, PharmD [address] [place] [address] 08/07/2025 10:15 AM EST Office Visit [facility] [address] [place] [phone] Cathi Saul Health Maintenance Due Date Last Done Comments Hepatitis A Vaccines (1 of 2 - Risk 2-dose series) 1960 Hepatitis B Vaccines (1 of 3 - Risk 3-dose series) 2001 Zoster Vaccines (3 of 3) 10/27/2022 09/01/2022, 07/20 Diabetes: Urine Protein Screening 04/18/2023 04/18/2022, 04/18/2022, 10/18/2021, Additional history exists Lipid Panel 09/17/2023 09/16/2022, 02/10/2020 Dental Oral Exam 10/30/2024 05/01/2024, , 01/22/2016, Additional history exists COVID-19 Vaccine ( season) 2025 04/28/2021, 09/04/2020, 08/07/2020 Influenza Vaccine (#1) 2025 , 04/12/2023, 03/07/2022, Additional history exists Dental X-Ray: Bitewings 04/06/2025 04/05/2024, 12/12 Dental Prophylaxis 06/12/2025 12/10/2024, 1 07/01/2023, 01/22/2016, Additional history exists Diabetes: Hemoglobin A1C 06/13/2025 025, 09/04/2024, 04/24/2024, Additional history exists Diabetes: Foot Exam 09/04/2025 09/04/2024, 09/04/2024, 09/04/2024, Additional history exists SDOH Screening 09/04/2025 09/04/2024 Alcohol/Substance Use Screening 12/27/2025 12/27/2024 Depression Screening 12/27/2025 12/27/2024, 12/28/19 Tobacco Screening 01/30/2026 01/30/2025 Eye Exam 02/28/2026 02/29/2024, 02/17, 02/29/2024, Additional [...] Procedure Name Priority Date/Time Associated Diagnosis Comments CT CHEST WO CONTRAST Routine 03/10/2025 10:12 AM EDT POCT GLUCOSE Routine 12/27/2024 11:26 AM EDT Diabetes mellitus type 2 with complications ([facility]/HCC) POCT GLYCATED HEMOGLOBIN, TOTAL Routine 12/12/2024 12:11 [...] Recently Relevant to Health Maintenance Results * CT Chest w/o Contrast (03/10/2025 10:12 AM EDT) Anatomical Region Laterality Modality Body, Chest Computed Tomogra phy 03/10/2025 10:1 2 AM EDT Narrative 03/10/2025 11:45 AM EDT [place] [address] [address] Scan Report Signed Patient: Dk Sepulveda MR#: [id number] : 1940 Acct:[id number] Age/Sex: 84 / M ADM Date: 03/10/25 Loc: .CT Attending Dr: Dandre Squires MD Ordering Physician: Dandre Squires MD Date of Service: 03/10/25 Procedure(s): CT chest wo IV con Accession Number(s): [id number] cc: [facility]; Dandre Squires MD Report Number: [id number]: Total DLP = 134.00 mGy-cm Reason for Exam: J98.59 - Other diseases of mediastinum, not elsewhere classified EXAMINATION: CT CHEST WITHOUT IV CONTRAST INDICATION: J98.59 - Other diseases of mediastinum, not elsewhere classified COMPARISON: Comparison is made with the prior examination dated 02/21/2024. TECHNIQUE: Helical CT scan of the chest was performed without intravenous contrast. Coronal and sagittal reformatted images were generated and reviewed. This CT exam was performed with one or more of the following dose reduction techniques: automated exposure control, adjustment of the mA and/or kV according to patient size, use of iterative reconstruction technique. DLP: 134 mGy-cm CHEST: THYROID: The thyroid is unremarkable. LUNGS: There are mild emphysematous changes. There are no airspace opacities or pulmonary nodules. MEDIASTINUM: Again seen is a lobulated soft tissue mass in the anterior mediastinum which measures 5.6 x 3.4 x 5.5 cm on the current study (previously 5.1 x 3.6 x 5.4 cm). There is a 1.5 cm superior mediastinal lymph node. SATNAM: Evaluation of the hilar regions is limited by lack of intravenous contrast material. CARDIOVASCULATURE: The heart is enlarged. 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 There is a pericardial effusion measuring up to 1.8 cm in thickness (previously 1.6 cm). The thoracic aorta is normal in caliber. DEGREE OF CORONARY CALCIFICATION: severe PLEURA: There is no pleural effusion. No pneumothorax. MAIN AIRWAYS: The mainstem bronchi and proximal branches are patent. AXILLA: There are multiple bilateral axillary lymph nodes more notable for number than size. BONES AND SOFT TISSUES: Unremarkable UPPER ABDOMEN: The liver again demonstrates a somewhat nodular contour, suggestive of cirrhosis. There is a 2.4 cm hypodensity in the left lobe. The spleen is enlarged. There is cholelithiasis. The adrenal glands are unremarkable. CT/CT chest wo IV con IMPRESSION: 1. 5.6 x 3.4 x 5.5 cm lobulated soft tissue mass in the anterior mediastinum, slightly larger than on the prior study. There are adjacent enlarged mediastinal lymph nodes. 2. Cardiomegaly. Small to moderate pericardial effusion. 3. Findings suggestive of cirrhosis of the liver. 2.4 cm hypodensity in the right lobe of the liver as seen previously. 4. Splenomegaly. Cholelithiasis. Electronically signed by: Ramana Cooley MD 03/10/2025 11:42 AM EDT Dictated By: Ramana Cooley MD Signed By: <Electronically signed by Ramana Cooley MD in OV> 03/10/25 1142 DD/ 1012 TD/TT: 03/10/25 1127 Program Or Project Administrator: Procedure Note [place], Image - 03/10/[address] [address] [address] Scan Report Signed Patient: Karlo Sepulveda#: [id number] : 2Acct:[id number] Age/Sex: 84 / MADM Date: 03/10/25 Loc: HO.CT Attending Dr: Dandre Squires MD Ordering Physician: Dandre Squires MD Date of Service: 03/10/25 Procedure(s): CT chest wo IV con Accession Number(s): [id number] cc: [facility]; Dandre Squires MD Report Number: [id number]: Total DLP = 134.00 mGy-cm Reason for Exam: J98.59 - Other diseases of mediastinum, not elsewhereclassified EXAMINATION: CT CHEST WITHOUT IV CONTRAST INDICATION: J98.59 - Other diseases of mediastinum, not elsewhere classified COMPARISON: Comparison is made with the prior examination dated 02/21/2024. TECHNIQUE: Helical CT scan of the chest was performed without intravenous contrast. Coronal and sagittal reformatted images were generated and reviewed. This CT exam was performed with one or more of the following dose reduction techniques: automated exposure control, adjustment of the mA and/or kV according to patient size, use of iterative reconstruction technique. DLP: 134 mGy-cm CHEST: THYROID: The thyroid is unremarkable. LUNGS: There are mild emphysematous changes. There are no airspace opacities or pulmonary nodules. MEDIASTINUM: Again seen is a lobulated soft tissue mass in the anterior mediastinum which measures 5.6 x 3.4 x 5.5 cm on the current study (previously 5.1 x 3.6 x 5.4 cm). There is a 1.5 cm superior mediastinal lymph node. SATNAM: Evaluation of the hilar regions is limited by lack of intravenous contrast material. CARDIOVASCULATURE: The heart is enlarged. 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 There is a pericardial effusion measuring up to 1.8 cm in thickness (previously 1.6 cm). The thoracic aorta is normal in caliber. DEGREE OF CORONARY CALCIFICATION: severe PLEURA: There is no pleural effusion. No pneumothorax. MAIN AIRWAYS: The mainstem bronchi and proximal branches are patent. AXILLA: There are multiple bilateral axillary lymph nodes more notable for number than size. BONES AND SOFT TISSUES: Unremarkable UPPER ABDOMEN: The liver again demonstrates a somewhat nodular contour, suggestive of cirrhosis. There is a 2.4 cm hypodensity in the left lobe. The spleen is enlarged. There is cholelithiasis. The adrenal glands are unremarkable. CT/CT chest wo IV con IMPRESSION: 1. 5.6 x 3.4 x 5.5 cm lobulated soft tissue mass in the anterior mediastinum, slightly larger than on the prior study. There are adjacent enlarged mediastinal lymph nodes. 2. Cardiomegaly. Small to moderate pericardial effusion. 3. Findings suggestive of cirrhosis of the liver. 2.4 cm hypodensity in the right lobe of the liver as seen previously. 4. Splenomegaly. Cholelithiasis. Electronically signed by: Ramana Cooley MD 03/10/2025 11:42 AM EDT Dictated By: Ramana Cooley MD Signed By: <Electronically signed by Ramana Cooley MD in [place]> 03/10/25 1142 DD/ 1012 TD/TT: 03/10/25 1127 Program Or Project Administrator: [facility] External Provider IMG CT PROCEDURES Final Result * POCT Glucose (12/27/2024 11:26 AM EDT) Glucose Blood, POC 112 60 - 200 mg/dL QC Media Lot # [id number] Lot# Expiration Date Blood Capillary blood specimen / Unknown 12/27/2024 11:26 AM EDT Juan M Rogers MD POINT OF CARE TEST ENTER/EDIT OR DERABLES Final Result * (ABNORMAL) POCT HGB A1C (12/12/2024 12:11 PM EDT) Hemoglobin A1C 6.3(A) 4.0 - 6.0 % Blood 12/12/2024 12:1 1 PM EDT us Juan M Rogers MD POINT OF CARE TEST ENTER/EDIT OR DERABLES Final Result * Lipid Panel, Standard (09/16/2022 9:26 AM EDT) Triglycerides 134 mg/dL [facility] Comment:Desirable Triglyceri de: less than 150 mg/dLBorderline High Triglyceride 150-199 mg/dLHigh Triglyceride: 200-499 mg/dLVery High Triglyceride: greater than or equal to 5OO mg/dL Cholesterol 114 mg/dL [facility] Comment:Desirable Cholestero l: less than 200 mg/dLBorderline High Cholesterol: 200-239 mg/dLHigh Cholesterol: greater than 239 mg/dL LDL Cholesterol Calculated 59 mg/dl [facility] Comment:Desirable LDL: less than 100 mg/dLNear Optimal/Above Optimal LDL: 110- 129 mg/dLBorderline High LDL: 130-159 mg/dLHigh LDL: 160-189 mg/dLVery High LDL: greater than or equal to 190 mg/dL HDL Cholesterol 29 mg/dL [facility] Comment:Desirable HDL: great er than 40 mg/dL Note: This HDL assay may give artificially low results in patients with liver disease. 09/16/2022 9:26 AM EDT 09/16/2022 9:26 AM EDT [facility] External Provider LAB BLO OD ORDERABLES Final Result [facility] [address] [place] [phone] * (ABNORMAL) MICROALBUMIN/CREATININE RATIO, RANDOM URINE [...] CONVERTED LEGACY LABS 04/18/2022 8:43 AM EDT us Arpit Bundy MD HISTORICAL/NON ORDERABLE LABS Final Result CONVERTED LEGACY LABS from Last 3 Months or Most Recently Relevant to Health Maintenance Insurance [address] [place] [id number] [facility] OPTIONS (O D-SNP) LISA FORD [id number] [place] [phone] [facility] Advance Directives Documents on File Type Date Recorded Patient Community Product Specialist Expl anation HealthCare Proxy 06/28/2023 HEALTHCARE PROXY 06/13/23 Care Teams Sous Chef Kitchen Manager Relationship Specialty Start Date End Date Name, MD Juan M [address] [place] [address] PCP - General Family Medicine 01/21/19 Gita Girard PharmD [address] [place] [address] Pharmacist Internal Medicine 07/14/22 [employer] 10/28/24
--- OUTSIDE RECORDS SUMMARY | 2025-03-10 12:20 | XMS_ITS | Patient Health Record ---
Author Organization [facility] Address [address] [place] [address] Care Team Providers Care Wire Rope Sales Representative Name Role Phone Bonnie BLUE, Lanette Primary Care Provider Unavail able Ramana Mcginnis Unavailable [phone] Reason For Referral No Information Plan Of Treatment No Information Insurance Providers Payer Name Payer Address Payer Phone Subscriber Number Group Number Insured Name Patient Relationship to Insured Coverage Start Date Coverage End Date [facility] [address] [place] [address] WILL CALL BACK NAVYA MEZA Self - patient is the insured
--- OUTSIDE RECORDS SUMMARY | 2025-03-10 12:20 | XMS_ITS | Encounter Summary ---
Author Organization [employer] Address 75 [facility] 7t [place] [address] Care Team Providers Care Solar Panel Technician Name Role Phone Name, Juan M BLUE Primary Care Provider [phone] Gita Girard PharmD Unavailable [phone] Reason for Visit * Reason Onset Date Comments rs same day cancellation 11/08/2024 Encounter Details Date Type Department Care Team (Late st Contact Info) Description 11/08/2024 Telephone [facility] ADULT DENTAL [address] [place] [address] Cathi Saul rs same day cancellation Social History Tobacco Use Types Packs/Day Years [...] * Telephone Encounter - Lupe Sinha - 11/08/2024 10:42 AM EDT Patient called in looking to rs same day cancellation. Patient informed with same day cancellation that there is a waiting period prior to being able to reschedule and that office will reach out for rs. documented in this encounter Plan of Treatment Upcoming Encounters Date Type Department Care Team (Late st Contact Info) Description 04/22/2025 10:00 AM EST Office Visit [facility] MEDICINE [address] [place] [address] Name, MD Juan M [address] [place] [address] 06/05/2025 10:30 AM EST Office Visit [facility] OPTOMETRY [address] [place] [address] Leslie Urrutia, OD [address] [place] [address] 06/23/2025 11:30 AM EST Medication Management [facility] MEDICINE [address] [place] [address] Gita Girard PharmD [address] [place] [address] 08/07/2025 10:15 AM EST Office Visit [facility] ADULT DENTAL [address] [place] [address] Cathi Saul documented as of this encounter [...] documented as of this encounter Care Teams Solar Panel Technician Relationship Specialty Start Date End Date Name, MD Juan M [address] [place] [address] PCP - General Family Medicine 01/21/19 Gita Girard PharmD [address] [place] [address] Pharmacist Internal Medicine 07/14/22 [employer] 10/28/24 documented as of this encounter
--- OUTSIDE RECORDS SUMMARY | 2025-03-10 12:20 | XMS_ITS | Encounter Summary ---
Author Organization [employer] Address 75 [facility] 7t [place] [address] Care Team Providers Care Adjunct English Instructor Name Role Phone Name, Juan M BLUE Primary Care Provider [phone] Gita Girard PharmD Unavailable [phone] Encounter Details Date Type Department Care Team (Late st Contact Info) Description 03/10/2025 Orders Only [facility] External Provider, [facility] Social History Tobacco Use Types Packs/Day Years [...] Description 04/22/2025 10:00 AM EST Office Visit [facility] MEDICINE [address] [place] [address] Name, MD Juan M [address] [place] [address] 06/05/2025 10:30 AM EST Office Visit [facility] OPTOMETRY [address] [place] [address] TarkaLeslie, OD [address] [place] [address] 06/23/2025 11:30 AM EST Medication Management [facility] MEDICINE [address] [place] [address] Gita Girard, PharmD [address] [place] [address] 08/07/2025 10:15 AM EST Office Visit [facility] ADULT DENTAL [address] [place] [address] Cathi Saul documented as of this encounter [...] WO CONTRAST Routine 03/10/2025 10:12 AM EDT documented in this encounter Results * CT Chest w/o Contrast (03/10/2025 10:12 AM EDT) Anatomical Region Laterality Modality Body, Chest Computed Tomogra phy 03/10/2025 10:1 2 AM EDT Narrative 03/10/2025 11:45 AM EDT [place] [address] [address] Scan Report Signed Patient: Dk Sepulveda MR#: [id number] : 1940 Acct:[id number] Age/Sex: 84 / M ADM Date: 03/10/25 Loc: .CT Attending Dr: Dandre Squires MD Ordering Physician: Dandre Squires MD Date of Service: 03/10/25 Procedure(s): CT chest wo IV con Accession Number(s): [id number] cc: [facility]; Dandre Squires MD Report Number: [id number]: Total DLP = 134.00 mGy-cm Reason for [...] 03/10/25 1142 DD/ 1012 TD/TT: 03/10/25 1127 Caseworker: Procedure Note Donotuseinterpreter, Image - 03/10/[address] [address] [address] Scan Report Signed Patient: Karlo Sepulveda#: [id number] : 1940cct:[id number] Age/Sex: 84 / MADM Date: 03/10/25 Loc: HO.CT Attending Dr: Dandre Squires MD Ordering Physician: Dandre Squires MD Date of Service: 03/10/25 Procedure(s): CT chest wo IV con Accession Number(s): [id number] cc: [facility]; Dandre Squires MD Report Number: [id number]: Total DLP = 134.00 mGy-cm Reason for [...] 03/10/25 1142 DD/ 1012 TD/TT: 03/10/25 1127 Caseworker: [facility] External Provider IMG CT PROCEDURES Final Result documented in this encounter Visit Diagnoses Not on filedocumented in this encounter Additional Health Concerns Assessment Noted Time PHQ-9 Depression Total Score: 0 12/28/19 25 11:27 AM EDT documented as of this encounter Care Teams Adjunct English Instructor Relationship Specialty Start Date End Date Name, MD Juan M [address] [place] [address] PCP - General Family Medicine 01/21/19 Gita Girard PharmD [address] [place] [address] Pharmacist Internal Medicine 07/14/22 [employer] 10/28/24 documented as of this encounter
--- OUTSIDE RECORDS SUMMARY | 2025-03-10 12:21 | XMS_ITS | Clinical Summary ---
Author Organization [facility] Address [address] [facility] [facility] [address] [place] [address] Phone Care Team Providers Care Government Service Executive Name Role Phone Name, Juan M BLUE Primary Care Provider [phone] Allergies Active Allergy Reactions Criticality Noted Date [...] tablet 2 3 Active ergocalciferol 1.25 MG (39449 UT) capsule TAKE 1 CAPSULE BY MOUTH EVERY 14 DAYS 4 capsule 1 3 Active Easy Touch Lancets 33G/Twist misc 3 Active gabapentin (NEURONTIN) 100 MG capsuleIndicati ons:Renal osteodystrophy, Hypertensive chronic kidney disease, unspecified, with chronic kidney disease stage I through stage IV, or unspecified,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> ([facility]) Take 1 capsule (100 mg total) by [...] mouth 1 (one) time each day Active ferrous sulfate 325 (65 Fe) MG EC tabletIndicatio ns:Chronic kidney disease, stage 4 (severe) (HCC),Hypertens liborio chronic kidney disease, unspecified, with chronic kidney disease stage I through stage IV, or unspecified Take 1 tablet (325 mg total) by mouth 1 (one) time each day with breakfast 90 tablet 3 5 Active calcitriol (ROCALTROL) 0.25 MCG capsule TAKE 1 CAPSULE BY MOUTH EVERY OTHER DAY IN THE MORNING 45 capsule 2 5 Active Active Problems Problem Noted Date Diagnosed Date Pain in right wrist 11/24/2022 04/24/2023 Overview [...] w PCP x next month History of cerebrovascular accident with residua l deficit 05/26/2022 04/24/2023 Constipation 05/26/2022 04/24/2023 Chronic gout without tophus 05/26/2022 1111/2022 Pericardial effusion 05/26/2022 04/24/2023 Normally functioning cardiac pacemaker in situ 1 07/27/2021 04/24/2023 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 04/24/2023 History of SARS-CoV-2 05/26/2022 04/24/2023 Venous intermittent claudication 05/26/2022 04/24/2023 Varicose veins of lower extremity 05/26/2022 04/24/2023 Chronic kidney disease, stage 4 (severe) 022 Chronic kidney disease, stage 4 (severe) 022 Stage 3b chronic kidney disease 09/29/2020 Hypertensive chronic kidney disease, unspecified, with chronic kidney disease stage I through stage IV, or unspecified 08/20/2020 Renal disorder due to type 2 diabetes mellitus 0 08/20/2020 Renal osteodystrophy 08/20/2020 Varicocele 04/24/2013 04/24/2023 Essential hypertension 04/20/2012 Chronic neck pain 04/20/2012 04/24/2023 Biliary calculus 04/20/2012 04/24/2023 Benign prostatic hyperplasia 04/20/201211/2022 Persistent atrial fibrillation 04/20/2012 1 06/24/2022 Hyperlipidemia 04/20/2012 04/24/2023 Resolved Problems Problem Noted Date Diagnosed Date Resolved Date Chronic kidney disease stage 3 08/20/2020 02/08/2021 Stage 3a chronic kidney disease 08/20/2020 02/08/2021 Immunizations Immunization Administration Dates Next Due Influenza [...] Visit [facility] [address] [place] [address] [place], [place] [address] Arpit Bundy MD [address] [facility] [address] [place] [phone] Health Maintenance Due Date Last Done Comments Hepatitis B Vaccine (1 of 3 - Risk 3-dose series) 2001 Diabetes: Ophthalmology Exam 07/20/2020 Diabetes: Pedal Pulse Checked 07/20/2020 Diabetes: Sensory Foot Exam 07/20/2020 Diabetes: Visual Foot Exam 07/20/2020 Influenza Vaccine (#1) 2025 5, 04/12/2023, 03/07/2022, Additional history exists Diabetes: Hemoglobin A1C 03/14/2025 025, 09/04/2024, 04/24/2024, Additional history exists Pneumococcal Vaccine: 50+ Years Completed 08/12/2021, 03/23/2015, 07/29/2014, Additional history exists Pneumococcal Vaccine: Peds ( 0 to 5 Years) and At-Risk Patients (6 to 49 Years) Discontinued 08/12/2021, 03/23/2015, 07/29/2014, Additional history exists Insurance [facility] ([id number]) [facility] ([id number]) Care Teams Government Service Executive Relationship Specialty Start Date End Date Name, MD Juan M [address] [place] [address] PCP - General Internal Medicine 09/29/20
--- OUTSIDE RECORDS SUMMARY | 2025-03-10 12:21 | XMS_ITS | Encounter Summary ---
Author Organization [employer] [facility] Address [address] [place] [address] 7t [place] [address] Care Team Providers Care Game Manager Name Role Phone Name, Juan M BLUE Primary Care Provider [phone] Gita Girard PharmD Unavailable [phone] Encounter Details Date Type Department Care Team (Late st Contact Info) Description 08/16/2022 Abstract [facility] MEDICINE [address] [place] [address] Gita Girard, PharmD [address] [place] [address] Social History Tobacco Use Types Packs/Day Years [...] Description 04/22/2025 10:00 AM EST Office Visit [facility] MEDICINE [address] [place] [address] Name, MD Juan M [address] [place] [address] 06/05/2025 10:30 AM EST Office Visit [facility] OPTOMETRY [address] [place] [address] TarkaLeslie, OD [address] [place] [address] 06/23/2025 11:30 AM EST Medication Management [facility] MEDICINE [address] [place] [address] Gita Girard PharmD [address] [place] [address] 08/07/2025 10:15 AM EST Office Visit [facility] ADULT DENTAL [address] [place] [address] Cathi Saul documented as of this encounter [...] documented as of this encounter Care Teams Game Manager Relationship Specialty Start Date End Date Name, MD Juan M [address] [place] [address] PCP - General Family Medicine 01/21/19 Gita Girard, DamonD [address] [place] [address] Pharmacist Internal Medicine 07/14/22 [employer] 10/28/24 documented as of this encounter
--- OUTSIDE RECORDS SUMMARY | 2025-03-10 12:21 | XMS_ITS | Encounter Summary ---
Author Organization [employer] Address 75 [facility] 7t [place] [address] Care Team Providers Care Corrosion Technician Name Role Phone Name, Juan M BLUE Primary Care Provider [phone] Gita Girard PharmD Unavailable [phone] Encounter Details Date Type Department Care Team ([facility] st Contact Info) Description 12/13/2023 Telephone [facility] ADULT DENTAL [address] [place], [place] [phone] Kenny Hopson, RONDAS [address] [place] [address] Social History Tobacco Use Types Packs/Day Years [...] Description 04/22/2025 10:00 AM EST Office Visit [facility] MEDICINE [address] [place] [address] Name, MD Juan M [address] [place] [address] 06/05/2025 10:30 AM EST Office Visit [facility] OPTOMETRY [address] [place] [address] Leslie Urrutia, OD [address] [place] [address] 06/23/2025 11:30 AM EST Medication Management [facility] MEDICINE [address] [place] [address] Gita Girard, PharmD [address] [place] [address] 08/07/2025 10:15 AM EST Office Visit [facility] ADULT DENTAL [address] [place] [address] Cathi Saul documented as of this encounter [...] documented as of this encounter Care Teams Corrosion Technician Relationship Specialty Start Date End Date Name, MD Juan M [address] [place] [address] PCP - General Family Medicine 01/21/19 Gita Girard PharmD [address] [place] [address] Pharmacist Internal Medicine 07/14/22 [employer] 10/28/24 documented as of this encounter
--- OUTSIDE RECORDS SUMMARY | 2025-03-10 12:21 | XMS_ITS | Encounter Summary ---
Author Organization [employer] Address [address] [place] [address] Phone Care Team Providers Care Driver Medic Name Role Phone Anthony Ramirez MD Primary Care Provider Unav ailable Encounter Details Date Type Department Care Team (Late st Contact Info) Description 11/22/2016 Office Visit [facility] [address] [place], [place] [phone] Provider, MD Cindy [address] [place] [address] Social History Tobacco Use Types Packs/Day [...] on filedocumented in this encounter Care Teams Driver Medic Relationship Specialty Start Date End Date Anthony Ramirez MD PCP - General 07/06/16 documented as of this encounter
--- OUTSIDE RECORDS SUMMARY | 2025-03-10 12:21 | XMS_ITS | Encounter Summary ---
Author Organization [employer] Address 75 [facility] 7t [place] [address] Care Team Providers Care Quality Assurance Director Name Role Phone Name, Juan M BLUE Primary Care Provider [phone] Gita Girard PharmD Unavailable [phone] Reason for Visit * Reason Comments Med Refill Encounter Details Date Type Department Care Team ([facility] st Contact Info) Description 01/29/2024 Refill [facility] WALK-IN CENTER [address] [place], [place] [phone] Name, MD Juan M [address] [place] [address] Social History Tobacco Use Types Packs/Day Years [...] Description 04/22/2025 10:00 AM EST Office Visit [facility] MEDICINE [address] [place] [address] Name, MD Juan M [address] [place] [address] 06/05/2025 10:30 AM EST Office Visit [facility] OPTOMETRY [address] [place] [address] Leslie Urrutia, OD [address] [place] [address] 06/23/2025 11:30 AM EST Medication Management [facility] MEDICINE [address] [place] [address] Gita Girard, PharmD [address] [place] [address] 08/07/2025 10:15 AM EST Office Visit [facility] ADULT DENTAL [address] [place] [address] Cathi Saul documented as of this encounter Goals Goal Patient Goal Type Associated Problems Recent Progress Patient-Stated? Author Patient will adhere to medication regimen General No Gita Girard PharmD Note: Take medications, including insulin, as prescribed. Hemoglobin A1c < 8 Result Component 6.3( 5 12:11 PM EDT) No Gita Girard PharmD [...] as of this encounter Care Teams Quality Assurance Director Relationship Specialty Start Date End Date Name, MD Juan M [address] [place] [address] PCP - General Family Medicine 01/21/19 Gita Girard PharmD [address] [place] [address] Pharmacist Internal Medicine 07/14/22 [employer] 10/28/24 documented as of this encounter
--- OUTSIDE RECORDS SUMMARY | 2025-03-10 12:21 | XMS_ITS | Encounter Summary ---
Author Organization [employer] Address [address] [place] [address] Phone Care Team Providers Care English Professor Name Role Phone Anthony Ramirez MD Primary Care Provider Unav ailable Encounter Details Date Type Department Care Team (Late st Contact Info) Description 09/19/2016 Office Visit [facility] [address] [place], [place] [phone] Provider, MD Cindy [address] [place] [address] Social History Tobacco Use Types Packs/Day [...] on filedocumented in this encounter Care Teams English Professor Relationship Specialty Start Date End Date Anthony Ramirez MD PCP - General 07/06/16 documented as of this encounter
--- OUTSIDE RECORDS SUMMARY | 2025-03-10 12:21 | XMS_ITS | Encounter Summary ---
Author Organization [employer] Address [address] [place] [address] Phone Care Team Providers Care Centrex Radio Operator Name Role Phone Anthony Ramirez MD Primary Care Provider Unav ailable Encounter Details Date Type Department Care Team (Late st Contact Info) Description 04/27/2018 Office Visit [facility] [address] [place], [place] [phone] Provider, MD Cindy [address] [place] [address] Social History Tobacco Use Types Packs/Day [...] on filedocumented in this encounter Care Teams [employer] Radio Operator Relationship Specialty Start Date End Date Anthony Ramirez MD PCP - General 07/06/16 documented as of this encounter
--- OUTSIDE RECORDS SUMMARY | 2025-03-10 12:21 | XMS_ITS | Encounter Summary ---
Author Organization [employer] Address [address] [place] [address] Phone Care Team Providers Care Police Officer Name Role Phone Anthony Ramirez MD Primary Care Provider Unav ailable Encounter Details Date Type Department Care Team (Late st Contact Info) Description 11/22/2016 Office Visit [facility] [address] [place], [place] [phone] Provider, MD Cindy [address] [place] [address] Social History Tobacco Use Types Packs/Day [...] on filedocumented in this encounter Care Teams Police Officer Relationship Specialty Start Date End Date Anthony Ramirez MD PCP - General 07/06/16 documented as of this encounter
--- OUTSIDE RECORDS SUMMARY | 2025-03-10 12:21 | XMS_ITS | Encounter Summary ---
Author Organization [employer] Address 75 [facility] 7t [place] [address] Care Team Providers Care Portainer Operator Name Role Phone Name, Juan M BLUE Primary Care Provider Gita Girard PharmD Unavailable [phone] Encounter Details Date Type Department Care Team ([facility] st Contact Info) Description 05/17/2023 Telephone [facility] MEDICINE [address] [place] [address] Name, MD Juan M [address] [place] [address] Social History Tobacco Use Types Packs/Day Years [...] Description 04/22/2025 10:00 AM EST Office Visit [facility] MEDICINE [address] [place] [address] Name, MD Juan M [address] [place] [address] 06/05/2025 10:30 AM EST Office Visit [facility] OPTOMETRY [address] [place] [address] Tarka, Leslie, OD [address] [place] [address] 06/23/2025 11:30 AM EST Medication Management [facility] MEDICINE [address] [place] [address] Gita Girard, Kita [address] [place] [address] 08/07/2025 10:15 AM EST Office Visit [facility] ADULT DENTAL [address] [place] [address] Cathi Saul documented as of this encounter [...] documented as of this encounter Care Teams Portainer Operator Relationship Specialty Start Date End Date Name, MD Juan M [address] [place] [address] PCP - General Family Medicine 01/21/19 Gita Girard PharmD [address] [place] [address] Pharmacist Internal Medicine 07/14/22 [employer] 10/28/24 documented as of this encounter
--- OUTSIDE RECORDS SUMMARY | 2025-03-10 12:21 | XMS_ITS | Encounter Summary ---
Author Organization [employer] Address 75 [facility] 7t [place] [address] Care Team Providers Care Supervisor Pyrotechnic Loading Name Role Phone Name, Juan M BLUE Primary Care Provider [phone] Gita Girard PharmD Unavailable [phone] Reason for Visit * Reason Comments Med Refill Encounter Details Date Type Department Care Team (Late st Contact Info) Description 07/17/2022 Refill [facility] [address] [place], [place] [phone] Name, MD Juan M [address] [place] [address] Social History Tobacco Use Types Packs/Day Years [...] AM EST documented as of this encounter Functional Status * Over the past 2 weeks, how often have you been bothered by any of the following problems? Question Answer Date of Assessment Author Little interest or pleasure in doing things Not at all 07/20/2022 10:18 AM Nerissa [place] Feeling down, depressed, or hopeless Not at all 07/20/2022 10:18 AM Nerissa [place] Patient Health Questionnaire -2 Score 0 07/20/2022 10:18 AM Nerissa [place] documented as of this encounter Plan of Treatment Upcoming Encounters Date Type Department Care Team (Late st Contact Info) Description 04/22/2025 10:00 AM EST Office Visit [facility] MEDICINE [address] [place] [address] Name, MD Juan M [address] [place] [address] 06/05/2025 10:30 AM EST Office Visit [facility] OPTOMETRY [address] [place] [address] Leslie Urrutia, OD [address] [place] [address] 06/23/2025 11:30 AM EST Medication Management [facility] MEDICINE [address] [place] [address] Gita Girard, PharmD [address] [place] [address] 08/07/2025 10:15 AM EST Office Visit [facility] ADULT DENTAL [address] [place] [address] Cathi Saul documented as of this encounter Goals Goal Patient Goal Type Associated Problems Recent Progress Patient-Stated? Author Patient will adhere to medication regimen General No PuiaGita, PharmD Note: Take medications, including insulin, as prescribed. Hemoglobin A1c < 8 Result Component 6.3( 12:11 PM EDT) No Benson Girardyssa, PharmD Record your blood sugar as directed [...] documented as of this encounter Care Teams Supervisor Pyrotechnic Loading Relationship Specialty Start Date End Date Name, MD Juan M [address] [place] [address] PCP - General Family Medicine 01/21/19 Gita Girard PharmD [address] [place] [address] Pharmacist Internal Medicine 07/14/22 [employer] 10/28/24 documented as of this encounter
--- OUTSIDE RECORDS SUMMARY | 2025-03-10 12:21 | XMS_ITS | Encounter Summary ---
Author Organization [employer] Address 75 [facility] 7t [place] [address] Care Team Providers Care Career Representative Name Role Phone Name, Juan M BLUE Primary Care Provider Gita Girard PharmD Unavailable [phone] Reason for Visit * Reason Comments Med Refill Encounter Details Date Type Department Care Team (Late st Contact Info) Description 07/13/2023 Refill [facility] [address] [place], [place] [phone] Pia Berrios DO [address] [place], [place] [phone] Social History Tobacco Use Types Packs/Day Years [...] Description 04/22/2025 10:00 AM EST Office Visit [facility] MEDICINE [address] [place] [address] Name, MD Juan M [address] [place] [address] 06/05/2025 10:30 AM EST Office Visit [facility] OPTOMETRY [address] [place] [address] Leslie Urrutia, OD [address] [place] [address] 06/23/2025 11:30 AM EST Medication Management [facility] MEDICINE [address] [place] [address] Gita Girard, PharmD [address] [place] [address] 08/07/2025 10:15 AM EST Office Visit [facility] ADULT DENTAL [address] [place] [address] Cathi Saul documented as of this encounter [...] documented as of this encounter Care Teams Career Representative Relationship Specialty Start Date End Date Name, MD Juan M [address] [place] [address] PCP - General Family Medicine 01/21/19 Gita Girard PharmD [address] [place] [address] Pharmacist Internal Medicine 07/14/22 [employer] 10/28/24 documented as of this encounter
--- OUTSIDE RECORDS SUMMARY | 2025-03-10 12:21 | XMS_ITS | Encounter Summary ---
Author Organization [employer] Address [address] [place] [address] Phone Care Team Providers Care Gimp Tacker Name Role Phone Anthony Ramirez MD Primary Care Provider Unav ailable Encounter Details Date Type Department Care Team (Late st Contact Info) Description 06/27/2017 Office Visit [facility] [address] [place], [place] [phone] Provider, MD Cindy [address] [place] [address] Social History Tobacco Use Types Packs/Day [...] on filedocumented in this encounter Care Teams Gimp Tacker Relationship Specialty Start Date End Date Anthony Ramirez MD PCP - General 07/06/16 documented as of this encounter
--- OUTSIDE RECORDS SUMMARY | 2025-03-10 12:21 | XMS_ITS | Encounter Summary ---
Author Organization [facility] Address [address] [place] [address] Phone Care Team Providers Care Senior Compliance Officer Name Role Phone Anthony Ramirez MD Primary Care Provider Unav ailable Encounter Details Date Type Department Care Team (Late st Contact Info) Description 08/20/2018 Office Visit [facility] [address] [place], [place] [phone] Provider, MD Cindy [address] [place] [address] Social History Tobacco Use Types Packs/Day [...] filedocumented in this encounter Care Teams Senior Compliance Officer Relationship Specialty Start Date End Date Anthony Ramirez MD PCP - General 07/06/16 documented as of this encounter
--- OUTSIDE RECORDS SUMMARY | 2025-03-10 12:21 | XMS_ITS | Encounter Summary ---
Author Organization [facility] [facility] Address [address] [place] [address] Phone Care Team Providers Care Gericare Aide Teacher Name Role Phone Anthony Ramirez MD Primary Care Provider Unav ailable Encounter Details Date Type Department Care Team (Late st Contact Info) Description 09/19/2016 Office Visit [facility] [address] [place], [place] [phone] Provider, MD Cindy [address] [place] [address] Social History Tobacco Use Types Packs/Day [...] on filedocumented in this encounter Care Teams Gericare Aide Teacher Relationship Specialty Start Date End Date Anthony Ramirez MD PCP - General 07/06/16 documented as of this encounter
--- OUTSIDE RECORDS SUMMARY | 2025-03-10 12:21 | XMS_ITS | Encounter Summary ---
Author Organization [facility] Address [address] [place] [address] Phone Care Team Providers Care Product Marketing Engineer Name Role Phone Anthony Ramirez MD Primary Care Provider Unav ailable Encounter Details Date Type Department Care Team (Late st Contact Info) Description 08/08/2016 Office Visit [facility] [address] [place], [place] [phone] Provider, MD Cindy [address] [place] [address] Social History Tobacco Use Types Packs/Day [...] on filedocumented in this encounter Care Teams Product Marketing Engineer Relationship Specialty Start Date End Date Anthony Ramirez MD PCP - General 07/06/16 documented as of this encounter
--- OUTSIDE RECORDS SUMMARY | 2025-03-10 12:21 | XMS_ITS | Encounter Summary ---
Author Organization [facility] [employer] Address [address] [place] [address] Phone Care Team Providers Care Facilities Maintenance Worker Name Role Phone Anthony Ramirez MD Primary Care Provider Unav ailable Encounter Details Date Type Department Care Team (Late st Contact Info) Description 03/27/2017 [facility] Visit [facility] [address] [place], [place] [phone] Provider, MD Cindy [address] [place] [address] Social History Tobacco Use Types Packs/Day [...] on filedocumented in this encounter Care Teams Facilities Maintenance Worker Relationship Specialty Start Date End Date Anthony Ramirez MD PCP - General 07/06/16 documented as of this encounter
--- OUTSIDE RECORDS SUMMARY | 2025-03-10 12:21 | XMS_ITS | Encounter Summary ---
Author Organization [facility] Address [address] [place] [address] Phone Care Team Providers Care Internal Corrosion Specialist Name Role Phone Anthony Ramirez MD Primary Care Provider Unav ailable Encounter Details Date Type Department Care Team (Late st Contact Info) Description 01/17/2020 Abstract [facility] [address] [place], [place] [phone] Provider, MD Cindy [address] [place] [address] Social History Tobacco Use Types Packs/Day [...] on filedocumented in this encounter Care Teams Internal Corrosion Specialist Relationship Specialty Start Date End Date Anthony Ramirez MD PCP - General 07/06/16 documented as of this encounter
--- OUTSIDE RECORDS SUMMARY | 2025-03-10 12:21 | XMS_ITS | Encounter Summary ---
Author Organization [facility] [employer] [employer] Address [address] [place] [address] Phone Care Team Providers Care Keg Header Name Role Phone Anthony Ramirez MD Primary Care Provider Unav ailable Encounter Details Date Type Department Care Team (Late st Contact Info) Description 06/27/2017 Office Visit [facility] [address] [place], [place] [phone] Provider, MD Cindy [address] [place] [address] Social History Tobacco Use Types Packs/Day [...] on filedocumented in this encounter Care Teams Keg Header Relationship Specialty Start Date End Date Anthony Ramirez MD PCP - General 07/06/16 documented as of this encounter
--- OUTSIDE RECORDS SUMMARY | 2025-03-10 12:21 | XMS_ITS | Clinical Summary ---
Author Organization [facility] Address [address] [place] [address] Phone Care Team Providers Care Measurement Advisor Name Role Phone Anthony Ramirez MD Primary [...] of Treatment Not on file Care Teams Measurement Advisor Relationship Specialty Start Date End Date Anthony Ramirez MD PCP - General 07/06/16
--- OUTSIDE RECORDS SUMMARY | 2025-03-10 12:21 | XMS_ITS | Encounter Summary ---
Author Organization [employer] Address [address] [facility] 7t [place] [address] Care Team Providers Care Front End Developer Javascript Html Css Name Role Phone Name, Juan M BLUE Primary Care Provider Gita Girard PharmD Unavailable [phone] Reason for Visit * Reason Comments Med Refill Encounter Details Date Type Department Care Team (Late st Contact Info) Description 06/14/2023 Refill [facility] [address] [place] [address] Name, MD Juan M [address] [place] [address] Chronic cough; Hypertension, unspecified type; Diabetes mellitus [...] Description 04/22/2025 10:00 AM EST Office Visit [facility] [address] [place] [address] Name, MD Juan M [address] [place] [address] 06/05/2025 10:30 AM EST Office Visit [facility] OPTOMETRY [address] [place] [address] Leslie Urrutia, OD [address] [place] [address] 06/23/2025 11:30 AM EST Medication Management [facility] [address] [place] [address] Gita Girard, PharmD [address] [place] [address] 08/07/2025 10:15 AM EST Office Visit [facility] [address] [place] [address], [place] [address] Cathi Saul documented as of this encounter Goals Goal Patient Goal Type Associated Problems Recent Progress Patient-Stated? Author Patient will adhere to medication regimen General No Gita Girard PharmD Note: Take medications, including insulin, as prescribed. Hemoglobin A1c < 8 Result Component 6.3( 5 12:11 PM EDT) No Gita Girard PharmD Record your blood sugar as directed Result Component No Gtia Girard PharmD Note: Monitor BG via CGM ensuring sensor is scanned at least once every 8 hours. Utilize manual SMBG as needed and as directed. documented as of this encounter Visit Diagnoses Diagnosis Chronic cough Cough Hypertension, unspecified type Diabetes mellitus type 2 with complications ([facility]) Right-sided low back pain without sciatica, unspecified chronicity Insomnia, unspecified type documented in this encounter Additional Health Concerns Assessment Noted Time PHQ-9 Depression Total Score: 0 06/08/20 22 9:37 AM EST documented as of this encounter Care Teams Front End Developer Javascript Html Css Relationship Specialty Start Date End Date Name, MD Juan M [address] [place] [address] PCP - General Family Medicine 01/21/19 Gita Girard PharmD [address] [place] [address] Pharmacist Internal Medicine 07/14/22 [employer] 10/28/24 documented as of this encounter
--- OUTSIDE RECORDS SUMMARY | 2025-03-10 12:21 | XMS_ITS | Encounter Summary ---
Author Organization [facility] [employer] Address [address] [place] [address] Phone Care Team Providers Care Hip Hop Dancer Name Role Phone Anthony Ramirez MD Primary Care Provider Unav ailable Encounter Details Date Type Department Care Team (Late st Contact Info) Description 08/06/2018 Office Visit [facility] [address] [place], [place] [phone] Provider, MD Cindy [address] [place] [address] Social History Tobacco Use Types Packs/Day [...] on filedocumented in this encounter Care Teams Hip Hop Dancer Relationship Specialty Start Date End Date Anthony Ramirez MD PCP - General 07/06/16 documented as of this encounter
--- OUTSIDE RECORDS SUMMARY | 2025-03-10 12:21 | XMS_ITS | Encounter Summary ---
Author Organization [employer] Address [address] [place] [address] 7t [place] [address] Care Team Providers Care Design Lead Name Role Phone Name, Juan M BLUE Primary Care Provider [phone] Gita Girard PharmD Unavailable [phone] Reason for Visit * Reason Comments Med Refill Encounter Details Date Type Department Care Team (Late st Contact Info) Description 09/25/2022 Refill [facility] [address] [place] [address] Name, MD Juan M [address] [place] [address] Chronic cough; Hypertension, unspecified type; Diabetes mellitus [...] Description 04/22/2025 10:00 AM EST Office Visit [facility] [address] [place] [address] Name, MD Juan M [address] [place] [address] 06/05/2025 10:30 AM EST Office Visit [facility] OPTOMETRY [address] [place] [address] Tarka, Leslie, OD [address] [place] [address] 06/23/2025 11:30 AM EST Medication Management [facility] [address] [place] [address] Gita Girard PharmBarrie [address] [place] [address] 08/07/2025 10:15 AM EST Office Visit [facility] [address] [place] [address] Cathi Saul documented as of this encounter Goals Goal Patient Goal Type Associated Problems Recent Progress Patient-Stated? Author Patient will adhere to medication regimen General No Gita Girard, PharmD Note: Take medications, including insulin, as prescribed. Hemoglobin A1c < 8 Result Component 6.3( 12:11 PM EDT) No Gita Girard, PharmD Record your blood sugar as directed Result Component No Gita Girard, PharmD Note: Monitor BG via CGM ensuring sensor is scanned at least once every 8 hours. Utilize manual SMBG as needed and as directed. documented as of this encounter Visit Diagnoses Diagnosis Chronic cough Cough Hypertension, unspecified type Diabetes mellitus type 2 with complications ([facility]) Right-sided low back pain without sciatica, unspecified chronicity Insomnia, unspecified type documented in this encounter Additional Health Concerns Assessment Noted Time PHQ-9 Depression Total Score: 0 06/08/20 22 9:37 AM EST documented as of this encounter Care Teams Design Lead Relationship Specialty Start Date End Date Name, MD Juan M [address] [place] [address] PCP - General Family Medicine 01/21/19 Gita Girard PharmD [address] [place] [address] Pharmacist Internal Medicine 07/14/22 [employer] 10/28/24 documented as of this encounter
--- OUTSIDE RECORDS SUMMARY | 2025-03-10 12:21 | XMS_ITS | Encounter Summary ---
Author Organization [facility] [facility] [facility] Address [address] [place] [address] Phone Care Team Providers Care Creative Manager Name Role Phone Anthony Ramirez MD Primary Care Provider Unav ailable Encounter Details Date Type Department Care Team (Late st Contact Info) Description 10/24/2017 Office Visit [facility] [address] [place], [place] [phone] Provider, MD Cindy [address] [place] [address] Social History Tobacco Use Types Packs/Day [...] on filedocumented in this encounter Care Teams Creative Manager Relationship Specialty Start Date End Date Anthony Ramirez MD PCP - General 07/06/16 documented as of this encounter
--- OUTSIDE RECORDS SUMMARY | 2025-03-10 12:21 | XMS_ITS | Encounter Summary ---
Author Organization [facility] [facility] Address [address] [place] [address] Phone Care Team Providers Care Secondary English Teacher Name Role Phone Anthony Ramirez MD Primary Care Provider Unav ailable Encounter Details Date Type Department Care Team (Late st Contact Info) Description 08/08/2016 Office Visit [facility] [address] [place], [place] [phone] Provider, MD Cindy [address] [place] [address] Social History Tobacco Use Types Packs/Day [...] on filedocumented in this encounter Care Teams Secondary English Teacher Relationship Specialty Start Date End Date Anthony Ramirez MD PCP - General 07/06/16 documented as of this encounter
--- OUTSIDE RECORDS SUMMARY | 2025-03-10 12:21 | XMS_ITS | Encounter Summary ---
Author Organization [facility] [facility] Address [address] [place] [address] Phone Care Team Providers Care Business Developer Name Role Phone Anthony Ramirez MD Primary Care Provider Unav ailable Encounter Details Date Type Department Care Team (Late st Contact Info) Description 04/23/2018 Office Visit [facility] [address] [place], [place] [phone] Provider, MD Cindy [address] [place] [address] Social History Tobacco Use Types Packs/Day [...] on filedocumented in this encounter Care Teams Business Developer Relationship Specialty Start Date End Date Anthony Ramirez MD PCP - General 07/06/16 documented as of this encounter
== END 2025-03-10 10:04 | disposition home or self-care (01) ==
LOC: HO.CT 10:03
PROVIDERS: Visit Provider Hospitalist
DX: J98.59 Other diseases of mediastinum, not elsewhere classified (principal)
CPT/HCPCS: 71250

== ENCOUNTER → 2025-03-10 10:05 | Outpatient (BNV) | payer OTHER, SELFPAY | PROVIDERS: Visit Provider Radiology Diagnostic Radiology | DX: J98.59 Other diseases of mediastinum, not elsewhere classified (principal); I51.7 Cardiomegaly; R22.2 Localized swelling, mass and lump, trunk | CPT/HCPCS: 71250 ==

== ENCOUNTER 2025-04-21 10:22 | Outpatient (REF) | payer OTHER, SELFPAY ==
[2025-04-21 10:53] LABS: MANUAL DIFF FLAG NO
[2025-04-21 11:56] LABS: Hematocrit 28.3 % (42.0-52.0); Hemoglobin 8.8 g/dl (14.0-18.0); Imm Gran Abs Auto 0.03 X10*3/uL (0.00-0.03); Imm Gran Pct Auto 0.4 % (0.0-0.4); Lymphocytes Absolute Auto 1.8 X10*3/uL (1.2-4.9); Mean Corpuscular HGB Conc 31.1 g/dl (31.0-36.0); Mean Corpuscular Hemoglobin 28.3 pg (27.0-33.0); Mean Corpuscular Volume 91.0 fL (80.0-98.0); NRBC Abs Auto 0.000 X10*3/uL (0.0-0.012); NRBC Pct Auto 0.0 /100WBC (0.0-0.2); Platelet Count 144 X10*3/uL (160-400); Red Blood Count 3.11 X10*6/uL (4.60-5.80); White Blood Count 7.5 X10*3/uL (4.8-10.8)
--- OUTSIDE RECORDS SUMMARY | 2025-04-21 12:25 | XMS_ITS | Encounter Summary ---
Author Organization [employer] Address [address] [facility] 7t [place] [address] Care Team Providers Care Systems Spec Name Role Phone Name, Juan M BLUE Primary Care Provider [phone] Gita Girard PharmD Unavailable [phone] Reason for Visit * Reason Onset Date Comments rs cancelled same day appt 12/09/2024 Encounter Details Date Type Department Care Team (Late st Contact Info) Description 12/09/2024 Telephone [facility] [address] [place] [address] Cathi Saul rs cancelled same day appt [...] Description 04/22/2025 10:00 AM EST Office Visit [facility] [address] [place] [address] Name, MD Juan M 230 [place] [address] 06/05/2025 10:30 AM EST Office Visit [facility] OPTOMETRY [address] [place] [address] Leslie Urrutia, OD [address] [place] [address] 06/23/2025 11:30 AM EST Medication Management [facility] [address] [place] [address] Gita Girard PharmD 230 [place] [address] 08/07/2025 10:15 AM EST Office Visit [facility] [address] [place] [address] Cathi Saul documented as of this encounter [...] documented as of this encounter Care Teams Systems Spec Relationship Specialty Start Date End Date Name, [place] [address] PCP - General Family Medicine 01/21/19 Gita [place] [address] Pharmacist Internal Medicine 07/14/22 [employer] 10/28/24 documented as of this encounter
--- OUTSIDE RECORDS SUMMARY | 2025-04-21 12:25 | XMS_ITS | Encounter Summary ---
Author Organization [employer] Address [address] [facility] 7t [place] [address] Care Team Providers Care Dry Mixer Name Role Phone Name, Juan M BLUE Primary Care Provider [phone] Gita Girard PharmD Unavailable [phone] Reason for Visit * Reason Onset Date Comments rs same day cancellation 11/08/2024 Encounter Details Date Type Department Care Team (Late st Contact Info) Description 11/08/2024 Telephone [facility] [address] [place] [address] Cathi Saul rs same day cancellation Social [...] Description 04/22/2025 10:00 AM EST Office Visit [facility] [address] [place] [address] Name, MD Juan M [address] [place] [address] 06/05/2025 10:30 AM EST Office Visit [facility] OPTOMETRY [address] [place] [address] Leslie Urrutia, OD [address] [place] [address] 06/23/2025 11:30 AM EST Medication Management [facility] [address] [place] [address] Gita Girard PharmD [address] [place] [address] 08/07/2025 10:15 AM EST Office Visit [facility] [address] [place] [address] Cathi Saul documented as of this encounter [...] documented as of this encounter Care Teams Dry Mixer Relationship Specialty Start Date End Date Name, MD Juan M [address] [place] [address] PCP - General Family Medicine 01/21/19 Gita Girard PharmD [address] [place] [address] Pharmacist Internal Medicine 07/14/22 [employer] 10/28/24 documented as of this encounter
--- OUTSIDE RECORDS SUMMARY | 2025-04-21 12:25 | XMS_ITS | Encounter Summary ---
Author Organization [employer] Address [address] [facility] 7t [place] [address] Care Team Providers Care Collar Turner Name Role Phone Name, Juan M BLUE Primary Care Provider [phone] Gita Girard PharmD Unavailable [phone] Encounter Details Date Type Department Care Team ([facility] st Contact Info) Description 05/17/2023 Telephone [facility] [address] [place] [address] Name, MD Juan M [address] [place] [address] Social History Tobacco Use Types Packs/Day Years [...] Description 04/22/2025 10:00 AM EST Office Visit [facility] [address] [place] [address] Name, MD Juan M [address] [place] [address] 06/05/2025 10:30 AM EST Office Visit [facility] OPTOMETRY [address] [place] [address] Tarka, Leslie, OD [address] [place] [address] 06/23/2025 11:30 AM EST Medication Management [facility] [address] [place] [address] Gita Girard, Kita [address] [place] [address] 08/07/2025 10:15 AM EST Office Visit [facility]ULT D[facility] [address] [place] [address] Cathi Saul documented as of this encounter [...] documented as of this encounter Care Teams Collar Turner Relationship Specialty Start Date End Date Name, MD Juan M [address] [place] [address] PCP - General Family Medicine 01/21/19 Gita Girard PharmD [address] [place] [address] Pharmacist Internal Medicine 07/14/22 [employer] 10/28/24 documented as of this encounter
--- OUTSIDE RECORDS SUMMARY | 2025-04-21 12:25 | XMS_ITS | Encounter Summary ---
Author Organization [employer] Address [address] [place] [address] 7t [place] [address] Care Team Providers Care Sack Repairer Name Role Phone Name, Juan M BLUE Primary Care Provider [phone] Gita Girard PharmD Unavailable [phone] Reason for Visit * Reason Comments Med Refill Encounter Details Date Type Department Care Team (Late st Contact Info) Description 09/25/2022 Refill [facility] [address] [place] [address] Name, MD Juan M [address] [place] [address] Chronic cough; Hypertension, unspecified type; Diabetes mellitus [...] 10:00 AM EST Office Visit [facility] [address] [place] [address] Name, MD Juan M [address] [place] [address] 06/05/2025 10:30 AM EST Office Visit [facility] OPTOMETRY [address] [place] [address] Tarka, Leslie, OD [address] [place] [address] 06/23/2025 11:30 AM EST Medication Management [facility] [address] [place] [address] Gita Girard PharmBarrie [address] [place] [address] 08/07/2025 10:15 AM EST Office Visit [facility] [address] [place] [address] Cathi Saul documented as of this encounter [...] type Diabetes mellitus type 2 with complications (HCC) Right-sided low back pain without sciatica, unspecified chronicity Insomnia, unspecified type documented in this encounter Additional Health Concerns Assessment Noted Time PHQ-9 Depression Total Score: 0 06/08/20 22 9:37 AM EST documented as of this encounter Care Teams Sack Repairer Relationship Specialty Start Date End Date Name, MD Juan M [address] [place], [place] [id number] PCP - General Family Medicine 01/21/19 Gita Girard PharmD [address] [place] [address] Pharmacist Internal Medicine 07/14/22 [employer] 10/28/24 documented as of this encounter
--- OUTSIDE RECORDS SUMMARY | 2025-04-21 12:25 | XMS_ITS | Encounter Summary ---
Author Organization [email or web address] Address [address] [facility] 7t [place] [address] Care Team Providers Care Traffic Ii Manager Name Role Phone Name, Juan M BLUE Primary Care Provider [phone] Gita Girard PharmD Unavailable [phone] Reason for Visit * Reason Comments Med Refill Encounter Details Date Type Department Care Team (Late st Contact Info) Description 07/13/2023 Refill [facility] [address] [place], [place] [phone] Pia Berrios DO [address] [place], [place] [phone] Social History Tobacco Use Types Packs/Day Years [...] 10:00 AM EST Office Visit [facility] MED[facility]INE [address] [place] [address] Name, MD Juan M [address] [place] [address] 06/05/2025 10:30 AM EST Office Visit [facility] OPTOMETRY [address] [place] [address] Leslie Urrutia, OD [address] [place] [address] 06/23/2025 11:30 AM EST Medication Management [facility] [address] [place] [address] Gita Girard, PharmD [address] [place] [address] 08/07/2025 10:15 AM EST Office Visit [facility] ADULT DENTAL [address] [place] [address] Cathi Saul documented as of this encounter [...] documented as of this encounter Care Teams Traffic Ii Manager Relationship Specialty Start Date End Date Name, MD Juan M [address] [place] [address] PCP - General Family Medicine 01/21/19 Gita Girard PharmD [address] [place] [address] Pharmacist Internal Medicine 07/14/22 [employer] 10/28/24 documented as of this encounter
--- OUTSIDE RECORDS SUMMARY | 2025-04-21 12:25 | XMS_ITS | Patient Health Record ---
Author Organization [employer] Address [address] [place] [address] Care Team Providers Care Shipping Point Inspector Name Role Phone Bonnie BLUE, Lanette Primary Care Provider Unavail able Ramana Mcginnis Unavailable [phone] Reason For Referral No Information Plan Of Treatment No Information Insurance Providers Payer Name Payer Address Payer Phone Subscriber Number Group Number Insured Name Patient Relationship to Insured Coverage Start Date Coverage End Date [facility] [address] [place] [address] WILL CALL BACK NAVYA MEZA Self - patient is the insured
--- OUTSIDE RECORDS SUMMARY | 2025-04-21 12:25 | XMS_ITS | Clinical Summary ---
Author Organization [employer] Address [address] [place] [address] 7t [place] [address] Care Team Providers Care Lead Electrical Engineer Name Role Phone Name, Juan M BLUE Primary Care Provider [phone] Gita Girard PharmD Unavailable Allergies Active Allergy Reactions Criticality Noted Date [...] powderIndication s:Diabetes mellitus type 2 with complications (HCC) Administer 3 mg via 1 device into the nostril for hypoglycemia with loss of consciousness. If no response after 15 minutes administer an additional dose via 2nd device into other nostril. 2 each 1 024 Active glucose 4 g chewable tabletIndication s:Diabetes mellitus type 2 with complications (HCC) Chew 4 tablets (16 g) if needed for low blood sugar. (BG < 70 mg/dL). Check BG again after 15 minutes and repeat dose if needed. 20 tablet 5 024 2024 Active Pentips Generic Pen Salineno 32G X 4 MM miscIndications: Diabetes mellitus type 2 with complications (HCC) USE DIRECTED FOUR TIMES DAILY 100 each 024 Active Alcohol Swabs (Alcohol Prep) 70 % padsIndications: Diabetes mellitus type 2 with complications (HCC) USE FOUR TIMES DAILY 100 each 025 Active TRUEplus Lancets 33G miscIndications: Type 2 diabetes mellitus with unspecified complications (HCC) TEST BLOOD SUGAR FOUR TIMES DAILY DIRECTED 100 each 025 Active Continuous Glucose Remote Mortgage Underwriter (FreeStyle Elizabeth 3 Powell) deviceIndication s:Diabetes mellitus type 2 with complications (HCC) 1 each Once per day. Use as directed for CGM 1 each 025 Active Continuous Glucose Sensor (FreeStyle Elizabeth 3 Plus Sensor) miscIndications: Diabetes mellitus type 2 with complications (HCC) Apply 1 every 15 days as directed for CGM 2 each 025 Active glucose blood (FreeStyle Precision David Test) test stripIndications :Diabetes mellitus type 2 with complications (HCC) Use to test blood sugar up to 4 times daily, as directed 100 each 025 Active insulin aspart (NovoLOG FLEXPEN) 100 UNIT/ML penIndications:D iabetes mellitus type 2 with complications (HCC) Inject 0 to 10 units subQ with meals per sliding scale: BG < 150 = 0 units, BG 151-200 = 2 units, 201-250 = 4 units, 251-300 = 6 units, 301-350 = 8 units, >351 = 10 units 15 mL 025 Active insulin degludec (Tresiba FlexTouch) 100 UNIT/ML injectionIndicat ions:Diabetes mellitus type 2 with complications (HCC) Inject 10 Units under the skin at bedtime. 15 mL 025 Active fluticasone (Flonase) 50 MCG/ACT nasal spray Administer 2 sprays into each nostril Once per day. 025 Active rosuvastatin (Crestor) 10 MG tabletIndication s:Hypertension, unspecified type,Chronic cough,Diabetes mellitus type 2 with complications (HCC),Right-side d low back pain without sciatica, unspecified chronicity,Insom [...] EVERY MORNING 90 tablet 1 025 Active carvedilol (Coreg) 3.125 MG tabletIndication s:Hypertension, unspecified type,Chronic cough,Diabetes mellitus type 2 with complications (HCC),Right-side d low back pain without sciatica, unspecified chronicity,Insom andrew, unspecified type TAKE 1 TABLET BY MOUTH TWICE DAILY IN THE MORNING AND IN THE EVENING WITH FOOD 180 tablet 1 025 Active spironolactone (Aldactone) 25 MG tablet TAKE 1/2 TABLET BY MOUTH EVERY MORNING 15 tablet 1 025 Active torsemide (Demadex) 20 MG tablet TAKE 4 TABLETS BY MOUTH EVERY MORNING 120 tablet 1 025 Active Acetaminophen Extra Strength 500 MG tablet TAKE 1 TABLET BY MOUTH EVERY 8 HOURS NEEDED FOR MILD PAIN 90 tablet 025 Active omeprazole (PriLOSEC) [address] capsuleIndicatio ns:Chronic cough,Hypertensi on, unspecified type,Diabetes mellitus type 2 with complications (HCC),Right-side d low back pain without sciatica, unspecified chronicity,Insom andrew, unspecified type TAKE 1 CAPSULE BY MOUTH EVERY MORNING WITH FOOD 90 capsule 025 Active omeprazole (PriLOSEC) [address] capsuleIndicatio ns:Chronic cough,Hypertensi on, unspecified type,Diabetes mellitus type 2 with complications (HCC),Right-side d low back pain without sciatica, unspecified chronicity,Insom andrew, unspecified type Take 1 capsule (20 mg) by mouth Once per day. Do not crush or chew. 90 capsule 025 2024 Discontinued Active Problems [...] of stage 3 chronic kidney diseas e ([facility]) 02/06/2024 Chronic right heart failure 02/06/2024 CKD [...] with PCP to reassess whether patient needs SCIENTIFIC ILLUSTRATOR, episodic short-term supply, and/or refer to pain [...] Varicocele 04/24/2013 Anemia 04/20/2012 Persistent atrial fibrillation ([facility]) 012 Benign prostatic hyperplasia 04/20/2012 Biliary calculus 04/20/2012 Stage 3b chronic kidney disease ([facility]) 2011 Chronic neck pain 04/20/2012 Essential hypertension 04/20/2012 [...] Encounters Date Type Department Care Team Description 04/21/2025 Telephone [facility] MEDICINE [address] [place] [address] Santosh Alexis MA chart prep 04/15/2025 Patient Outreach [facility] [address] [place] [address] Name, MD Juan M Pre-visit Planning (SDOH was already completed ) 04/01/2025 Refill [facility] [address] [place] [address] Juan M Rogers MD Chronic cough; Hypertension, unspecified type; Diabetes mellitus type 2 with complications (HCC); Right-sided low back pain without sciatica, unspecified chronicity; Insomnia, unspecified type 03/11/2025 Refill [facility] MED [facility] PEDS [address] [place] [address] Juan M Rogers MD 03/10/2025 Orders Only [facility] External Provider, [facility] 02/26/2025 Refill [facility] [address] [place] [address] Juan M Rogers MD 02/19/2025 Refill [facility] [address] [place] [address] Juan M Rogers MD Hypertension, unspecified type; Chronic cough; 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); Right-sided low back pain without sciatica, unspecified chronicity; Insomnia, unspecified type 01/30/2025 9:00 AM EDT Office Visit [facility] [address] [place] [address] Sheela Nam MD Low back pain, unspecified back pain laterality, unspecified chronicity, unspecified whether sciatica present (Primary Dx); Type 2 diabetes mellitus with hyperglycemia, with long-term current use of insulin ([facility]); Stage 3b chronic kidney disease ([facility]); Essential hypertension 01/30/2025 Travel 01/28/2025 Telephone [facility] [address] [place] [address] Juan M Rogers MD Call Back Request 01/21/2025 Telephone [facility] [address] [place] [address] Juan M Rogers MD Nurse Triage 01/21/2025 Refill [facility] [address] [place] [address] Juan M Rogers MD Hypertension, unspecified type; Chronic cough; 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); Right-sided low back pain without sciatica, unspecified chronicity; Insomnia, unspecified type from Last 3 Months Immunizations Immunization Administration [...] 04/22/2025 10:00 AM EST Office Visit [facility] [address] [place] [address] Name, MD Juan M [address] [place] [address] 06/05/2025 10:30 AM EST Office Visit [facility] OPTOMETRY [address] [place] [address] Leslie Urrutia, OD [address] [place] [address] 06/23/2025 11:30 AM EST Medication Management [facility] [address] [place] [address] Gita Girard, PharmD [address] [place] [address] 08/07/2025 10:15 AM EST Office Visit [facility] ADULT DENTAL [address] [place], [place] [phone] Cathi Saul Health Maintenance Due Date Last [...] CONTRAST Routine 03/10/2025 10:12 AM EDT POCT GLYCATED HEMOGLOBIN, TOTAL Routine 12/12/2024 12:11 PM EDT 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) PROPHYLAXIS - ADULT Routine 12/10/2024 1 1:00 AM EDT PERIODIC ORAL EVALUATION - ESTABLISHED [...] AM EDT Narrative 03/10/2025 11:45 AM EDT [place] [address] [address] Scan Report Signed Patient: Dk Sepulveda MR#: [id number] : 1940 Acct:[id number] Age/Sex: 84 / M ADM Date: 03/10/25 Loc: HO.CT Attending Dr: Dandre Squires MD Ordering Physician: Dandre Squires MD Date of Service: 03/10/25 Procedure(s): CT chest wo IV con Accession Number(s): [id number] cc: [facility]; Dandre Squires MD Report Number: [id number]: Total DLP = 134.00 mGy-cm Reason for [...] 03/10/25 1142 DD/ 1012 TD/TT: 03/10/25 1127 Cooper Helper: Procedure Note Donotuseinterpreter, Image - 03/10/[address] [place] [address] [address] Scan Report Signed Patient: Karlo Sepulveda#: [id number] : 1940cct:[id number] Age/Sex: 84 / MADM Date: 03/10/25 Loc: HO.CT Attending Dr: Dandre Squires MD Ordering Physician: Dandre Squires MD Date of Service: 03/10/25 Procedure(s): CT chest wo IV con Accession Number(s): [id number] cc: [facility]; Dandre Squires MD Report Number: [id number]: Total DLP = 134.00 mGy-cm Reason for [...] 03/10/25 1142 DD/ 1012 TD/TT: 03/10/25 1127 Cooper Helper: [facility] External Provider IMG CT PROCEDURES Final Result * (ABNORMAL) POCT HGB A1C (12/12/2024 12:11 PM EDT) Hemoglobin A1C 6.3(A) 4.0 - 6.0 % Blood 12/12/2024 12:1 1 PM EDT Juan M Rogers MD POINT OF CARE TEST ENTER/EDIT OR DERABLES Final Result * Lipid Panel, Standard (09/16/2022 9:26 AM EDT) Triglycerides 134 mg/dL [facility] Comment:Desirable Triglyceri de: less than 150 mg/dLBorderline High Triglyceride 150-199 mg/dLHigh Triglyceride: 200-499 mg/dLVery High Triglyceride: greater than or equal to 5OO mg/dL Cholesterol 114 mg/dL [facility] Comment:Desirable Cholestero l: less than 200 mg/dLBorderline High Cholesterol: 200-239 mg/dLHigh Cholesterol: greater than 239 mg/dL LDL Cholesterol Calculated 59 mg/dl [facility] Comment:Desirable LDL: less than 100 mg/dLNear Optimal/Above Optimal LDL: 110- 129 mg/dLBorderline High LDL: 130-159 mg/dLHigh LDL: 160-189 mg/dLVery High LDL: greater than or equal to 190 mg/dL HDL Cholesterol 29 mg/dL [facility] Comment:Desirable HDL: great er than 40 mg/dL Note: This HDL assay may give artificially low results in patients with liver disease. 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
--- OUTSIDE RECORDS SUMMARY | 2025-04-21 12:25 | XMS_ITS | Encounter Summary ---
Author Organization [employer] Address [address] [facility] 7t [place] [address] Care Team Providers Care Hat Sizer Name Role Phone Name, Juan M BLUE Primary Care Provider [phone] Gita Girard PharmD Unavailable [phone] Reason for Visit * Reason Onset Date Comments chart prep 04/21/2025 Encounter Details Date Type Department Care Team ([facility] st Contact Info) Description 04/21/2025 Telephone [facility] MED[facility] [address] [place] [address] Santosh Alexis MA chart prep Social History [...] Telephone Encounter - Santosh Alexis MA - 04/21/2025 9:02 AM EST Chart Prep Labs: done Images: done Referrals: appointment pending Mon05/07/24 1:15 PM [facility] General Surgeons Ronni Dodge MD Vaccines due: Covid, Flu, Hep B, Hep A, and Zoster Screenings: not applicable Overdue care gaps: A1c, Glucose, and Oral health screening documented in this encounter Plan of Treatment Upcoming Encounters Date Type Department Care Team (Late st Contact Info) Description 04/22/2025 10:00 AM EST Office Visit [facility] [address] [place] [address] Name, MD Juan M [address] [place] [address] 06/05/2025 10:30 AM EST Office Visit [facility] OPTOMETRY [address] [place] [address] Leslie Urrutia, OD [address] [place], [place] 06/23/2025 11:30 AM EST Medication Management [facility] [address] [place] [address] Gita Girard PharmD [address] [place] [address] 08/07/2025 10:15 AM EST Office Visit [facility] ADULT DENTAL [address] [place] [address] Cathi Saul documented as of this encounter [...] documented as of this encounter Care Teams Hat Sizer Relationship Specialty Start Date End Date Name, MD Juan M [address] [place] [address] PCP - General Family Medicine 01/21/19 Gita Girard PharmD [address] [place] [address] Pharmacist Internal Medicine 07/14/22 [employer] 10/28/24 documented as of this encounter
--- OUTSIDE RECORDS SUMMARY | 2025-04-21 12:25 | XMS_ITS | Encounter Summary ---
Author Organization [employer] Address [address] [facility] 7t [place] [address] Care Team Providers Care Shirt Sewer Name Role Phone Name, Juan M BLUE Primary Care Provider [phone] Gita Girard PharmD Unavailable [phone] Reason for Visit * Reason Comments Med Refill Encounter Details Date Type Department Care Team (Late st Contact Info) Description 06/14/2023 Refill [facility] MEDICINE [address] [place] [address] Name, MD Juan M [address] [place] [address] Chronic cough; Hypertension, unspecified type; Diabetes mellitus [...] Description 04/22/2025 10:00 AM EST Office Visit [facility] MEDICINE [address] [place] [address] Name, MD Juan M [address] [place] [address] 06/05/2025 10:30 AM EST Office Visit [facility] OPTOMETRY [address] [place] [address] Leslie Urrutia, OD [address] [place] [address] 06/23/2025 11:30 AM EST Medication Management [facility] MEDICINE [address] [place] [address] Gita Girard, PharmD [address] [place] [address] 08/07/2025 10:15 AM EST Office Visit [facility] [address] [place] [address], [place] [address] Cathi Saul documented as of this encounter [...] documented as of this encounter Care Teams Shirt Sewer Relationship Specialty Start Date End Date Name, MD Juan M [address] [place] [address] PCP - General Family Medicine 01/21/19 Gita Girard PharmD [address] [place] [address] Pharmacist Internal Medicine 07/14/22 [employer] 10/28/24 documented as of this encounter
--- OUTSIDE RECORDS SUMMARY | 2025-04-21 12:25 | XMS_ITS | Encounter Summary ---
Author Organization [employer] Address [address] [facility] 7t [place] [address] Care Team Providers Care Fisher Lampara Net Name Role Phone Name, Juan M BLUE Primary Care Provider [phone] Gita Girard PharmD Unavailable [phone] Reason for Visit * Reason Comments Med Refill Encounter Details Date Type Department Care Team ([facility] st Contact Info) Description 01/29/2024 Refill [facility] [address] [place], [place] [phone] Name, MD Juan M [address] [place] [address] Social History Tobacco Use Types Packs/Day Years [...] Description 04/22/2025 10:00 AM EST Office Visit [facility] MEDICINE [address] [place] [address] Name, MD Juan M [address] [place] [address] 06/05/2025 10:30 AM EST Office Visit [facility] OPTOMETRY [address] [place] [address] Leslie Urrutia, OD [address] [place] [address] 06/23/2025 11:30 AM EST Medication Management [facility] MED[facility] [address] [place] [address] Gita Girard, PharmD [address] [place] [address] 08/07/2025 10:15 AM EST Office Visit [facility] ADULT DENTAL [address] [place] [address] Cathi Saul documented as of this encounter Goals Goal Patient Goal Type Associated Problems Recent Progress Patient-Stated? Author Patient will adhere to medication regimen General No Gita Girard PharmD Note: Take medications, including insulin, as prescribed. Hemoglobin A1c < 8 Result Component 6.3( 5 12:11 PM EDT) No Gita Giarrd PharmD Record your blood sugar as directed [...] documented as of this encounter Care Teams Fisher Lampara Net Relationship Specialty Start Date End Date Name, MD Juan M [address] [place] [address] PCP - General Family Medicine 01/21/19 Gita Girard PharmD [address] [place] [address] Pharmacist Internal Medicine 07/14/22 [employer] 10/28/24 documented as of this encounter
--- OUTSIDE RECORDS SUMMARY | 2025-04-21 12:25 | XMS_ITS | Encounter Summary ---
Author Organization [employer] Address [address] [facility] 7t [place] [address] Care Team Providers Care Media Associate Name Role Phone Name, Juan M BLUE Primary Care Provider [phone] Gita Girard PharmD Unavailable [phone] Reason for Visit * Reason Comments Med Refill Encounter Details Date Type Department Care Team (Late st Contact Info) Description 07/17/2022 Refill [facility] [address] [place], [place] [phone] Name, MD Juan M [address] [place] [address] Social History Tobacco Use Types Packs/Day Years [...] Description 04/22/2025 10:00 AM EST Office Visit [facility] MEDICINE [address] [place] [address] Name, MD Juan M [address] [place] [address] 06/05/2025 10:30 AM EST Office Visit [facility] OPTOMETRY [address] [place] [address] Leslie Urrutia, OD [address] [place] [address] 06/23/2025 11:30 AM EST Medication Management [facility] MEDICINE [address] [place] [address] Gita Girard, PharmD [address] [place] [address] 08/07/2025 10:15 AM EST Office Visit [facility] ADULT DENTAL [address] [place] [address] Cathi Saul documented as of this encounter [...] documented as of this encounter Care Teams Media Associate Relationship Specialty Start Date End Date Name, MD Juan M [address] [place] [address] PCP - General Family Medicine 01/21/19 Gita Girard PharmD [address] [place] [address] Pharmacist Internal Medicine 07/14/22 [employer] 10/28/24 documented as of this encounter
--- OUTSIDE RECORDS SUMMARY | 2025-04-21 12:25 | XMS_ITS | Encounter Summary ---
Author Organization [employer] Address [address] [facility] 7t [place] [address] Care Team Providers Care Side Laster Staple Name Role Phone Name, Juan M BLUE Primary Care Provider [phone] Gita Girard PharmD Unavailable [phone] Encounter Details Date Type Department Care Team ([facility] st Contact Info) Description 12/13/2023 Telephone [facility] [address] [place], [place] [phone] Kenny Hopson, RONDAS [address] [place] [address] Social History Tobacco Use Types Packs/Day Years [...] Description 04/22/2025 10:00 AM EST Office Visit [facility] MEDICINE [address] [place] [address] Name, MD Juan M [address] [place] [address] 06/05/2025 10:30 AM EST Office Visit [facility] OPTOMETRY [address] [place] [address] Leslie Urrutia, OD [address] [place] [address] 06/23/2025 11:30 AM EST Medication Management [facility] MEDICINE [address] [place] [address] Gita Girard, PharmD [address] [place] [address] 08/07/2025 10:15 AM EST Office Visit [facility] ADULT DENTAL [address] [place] [address] Cathi Saul documented as of this encounter [...] documented as of this encounter Care Teams Side Laster Staple Relationship Specialty Start Date End Date Name, MD Juan M [address] [place] [address] PCP - General Family Medicine 01/21/19 Gita Girard PharmD [address] [place] [address] Pharmacist Internal Medicine 07/14/22 [employer] 10/28/24 documented as of this encounter
--- OUTSIDE RECORDS SUMMARY | 2025-04-21 12:25 | XMS_ITS | Data Portability ---
Author Organization [email or web address] [facility], [facility] Address [address] [place] [address] Care Team Providers Care Gauger Delivery Name Role Phone Unavailable OTHER HIM CCA OTHER Assessment Encounter Date Assessment Date Assessment LastModified by Organization Details LastModified Time 01/23/2024 01/23/2024 As noted, we were called to see this patient regarding concerns of rash.Evaluation in the field was performed by my rail car unloader colleague, as noted above, I provided real-time [...] serious symptoms, particularly open lesions or pain [email or web address] Not available 01/23/2024 10:53:55 06/21/2024 06/21/2024 I have reviewed and agree with the assessment and plan as documented by the rail car unloader. I provided real-time medical direction for this [...] in the field was performed by my rail car unloader colleague, as noted above, I provided real-time direction and supervision for this visit. The evaluation revealed An 83 year old male with a past medical history of Hypertension, Chronic Kidney Disease, Diabetes Mellitus Type 2, Coronary Artery Bypass Grafting (CABG), Coronary Artery Disease, and a pacemaker on [facility] who presents with sore throat and cough. [...] not a candidate for Paxlovid pt on [facility] Primary care, consider f/u clinical status Disposition: [...] serious symptoms, particularly SOB or chest pain [email or web address] Not available 07/15/2024 20:49:23 Plan of Treatment Reminders Order Date Submit Date Provider Last Modified By Organization Details Last Modified Time Details Appointments None recorded. Lab rapid SARS CoV 2 Ag, QL IA, respiratory specimen 2024 025 [email or web address], [phone] 20:20:28 rapid flu (A+B) 2024 025 [email or web address] [address] [place], [phone] 5 20:20:28 rapid strep group A, throat 2024 025 [email or web address] 7 [facility], [address] [place] [address], [phone] 20:20:28 Referral None recorded. Procedures None recorded. Surgeries None recorded. Imaging None recorded. Medication Orders clotrimazol e 1 % topical cream 2023 024 [facility], [address] [place] [address], [id number], 4 10:46:07 Patient TargetsNo targets recorded. Patient [...] Name and Address Organization Details Recorded Time 04748 ibuprofen medicatio n Not available Not available [...] 8 HOURS NEEDED FOR MILD PAIN TO [facility] active Not Available Not Available No t [...] cm 81 /min 99 % 99 % 20703.0 88 g 166/74 mm[Hg] Not Available Crystal IS 5 18:23:39 Date Recorded Heart rate Oxygen saturation Oxygen saturation in Arterial blood by Pulse oximetry Body height Respiratory rate Body temperature Body weight Systolic And Diastolic Provider Name and Address Organization Details Last Updated DateTime 5 88 /min 99 % 99 % 170.18 cm 18 /min 98.7 [degF] 54879.6 8 g 162/81 mm[Hg] Not Available Crystal IS 5 20:17:40 Date Recorded Body temperature Oxygen [...] Diagnosis SNOMED-CT Code Diagnosis ICD10 Code Diagnosis IMO Codes Diagnosis Note [id number] Reagan Rodríguez MD Main - [facility] [address] [place] [phone] 01/23/2024 10:41:42 01/23/2024 11:11:17 Tinea cruris 068417116 B35.6 isolated to groin, plan for [place] s [id number] Isatu Myers MD Main - [facility] [address] [place] [phone] 06/21/2024 18:23:38 06/21/2024 22:05:46 Sore nipple [id number] N64.59 [id number] JANET ATKINSON MD Main - [facility] [address] [place] [phone] 07/15/2024 20:17:33 07/15/2024 21:31:59 Acute COVID-19 [id number] U07.1 Health Concerns Section Related Observation LastModified by Organization Detai ls LastModified Time None Recorded Concern Status LastModified by Organization Details LastModified Time None Recorded Advance Directives Directive None Recorded Payers Insurance Date Sequence Insurance Name Policy Number Policy Willingham Covered Member ID Willingham Member ID Guarantor Name 07/15/2024 1 [facility] - DOS ON OR AFTER 2022 - DUAL ELIGIBLE - FDC OPTIONS AND ONE CARE (MEDICARE REPLACEMENT/ADV ANTAGE - HMO) Dk Sepulveda [id number] Dk Sepulveda Notes Date Note Type Note Provider Name and Address Organization Details Recorded Time 01/23/2024 text/html HPI: Patient with complaints of rash inner thighs and scrotum area. MACHINE CLEANER reports flat red like a jig saw puzzle no bleeding. ...................... ...................... ...................... ...................... ...................... ...................... ......... CRC Nurse Triage Notes (Asia Davenport): Chief Complaints: Rash PMH: Diabetes, Hypertension Other Allergies: NSAIDS Comments: CRC RN DID NOT NEED FURTHER INFO 1999: Unable to reach member (2 separate attempts made) to reschedule appointment d/t capacity issues. Member called with tax preparer services. VM left by tax preparer explaining to member that he would be rescheduled for evaluation tomorrow, 01/22/24. Education provided on the response time and the member was advised to monitor reported s/s and seek emergency treatment if needed. ...................... ...................... ...................... ...................... ...................... ...................... ......... Trust Accounts Supervisor Note From Contreras Wheatley: Pt reports several days of itchy rash in his inner thighs/groin. Pt denies drainage, f/n/v/d. Pt is alert, NAD. VSS. Afebrile. Non focal neuro exam. Normal gait. Bilateral erythema and smell c/w cutaneous candidiasis. [facility] to send rx to pharmacy. Pt to f/u with PCP. ...................... ...................... ...................... ...................... ...................... ...................... ......... Disposition: Fulfilled Reagan Rodríguez MD [address] [facility],[address], [place], [address], [employer] WHObyYOUARTIS SCHMITT 01/23/2024 10:55:06 06/21/2024 text/html HPI: Patient [...] ...................... ...................... ...................... ...................... ...................... ...................... ......... Trust Accounts Supervisor Note From Maribel Arcos: Pt chief complaint [...] 4/10. Pt CAOX4 with a GCS of 15.[facility] isatu myers consulted.Pt informed of possible chaffing of the area. Pt I aguirre to use lotion/ Vaseline on the area for a protective barrier as well as to wear less abrasive material on his upper body.Pt told to co tact his pcp if pain persists after x1 week of [facility] visit. Pt educated on red flag S&S and told to seek medical assistance if any present. ...................... ...................... ...................... ...................... ...................... ...................... ......... [facility] Consulted: Isatu Myers ...................... ...................... ...................... ...................... ...................... ...................... ......... Disposition: Fulfilled Isatu Myers MD [address] [facility],[address], [place], [address], [facility] [employer] 06/21/2024 19:19:21 07/15/2024 text/html ROS as noted [...] s/s and seek emergency treatment if needed. Trust Accounts Supervisor Organization Information for Merrick Gibbs Rosa Elena Patel Legal Name: [employer] A ddress: [address] [place] [id number], USMedical Director: Nando Reeys [facility] No.: [id number] Trust Accounts Supervisor POC Test Results from Merrick Gibbs Rosa Elena ALLRED Rapid COVID antigen (20:14:15)COVID: + Rapid influenza antigen (20:14:15)Flu: - Rapid strep test (20:14:16)Strep: - ...................... ...................... ...................... ...................... ...................... ...................... ......... Trust Accounts Supervisor Note From Merrick Gibbs: SC1 dispatched to the above address for the pt reporting a sore throat since Monday the . The pt was called through the [employer] system and he came from the 3rd [...] CABAG and is also on Eliquis. Dr Atkinson was consulted and he states the pt is outside the window of using Paxlovid and it doesn't mix well with the Eliquis. The pt was advised to drink plenty of fluids and keep taking his Tylenol and he should start feeling better by Monday. The pt understood the instructions and SC1 cleared the call. WRR ...................... ...................... ...................... ...................... ...................... ...................... ......... [facility] Consulted: Janet Atkinson ...................... ...................... ...................... ...................... ...................... ...................... ......... Disposition: Fulfilled JANET ATKINSON MD [address] [facility],[address], [place], [address], JULIO CÉSAR - ARTIS VIVEROS 07/15/2024 20:50:13
--- OUTSIDE RECORDS SUMMARY | 2025-04-21 12:25 | XMS_ITS | Encounter Summary ---
Author Organization [employer] [facility] Address [address] [place] [address] [address] [place] [address] Care Team Providers Care Manager Android Name Role Phone Name, Juan M BLUE Primary Care Provider [phone] Gita Girard PharmD Unavailable [phone] Encounter Details Date Type Department Care Team (Late st Contact Info) Description 08/16/2022 Abstract [facility] [address] [place] [address] Gita Girard, PharmD [address] [place] [address] Social History Tobacco Use Types Packs/Day Years [...] Description 04/22/2025 10:00 AM EST Office Visit [facility] [address] [place] [address] Name, MD Juan M [address] [place] [address] 06/05/2025 10:30 AM EST Office Visit [facility] [address] [place] [address] TarkaLeslie, OD [address] [place] [address] 06/23/2025 11:30 AM EST Medication Management [facility] [address] [place] [address] Gita Girard PharmD [address] [place] [address] 08/07/2025 10:15 AM EST Office Visit [facility] [address] [place] [id number] Cathi Saul documented as of this encounter [...] documented as of this encounter Care Teams Manager Android Relationship Specialty Start Date End Date Name, MD Juan M [address] [place] [address] PCP - General Family Medicine 01/21/19 Gita Girard, DamonD [address] [place] [id number] Pharmacist Internal Medicine 07/14/22 [employer] 10/28/24 documented as of this encounter
[2025-04-21 12:26] LABS: Appearance Urine Clear; Glucose Urine UA Negative (Negative); PH 7.5 (5.0-9.0); Specific Gravity - Urine 1.015 (1.005-1.025)
[2025-04-21 12:46] LABS: Microalbum/Creatinine Ratio Ur 6.6 ug/mg cr (<30); Protein/Creatinine Ratio, Ur 0.10 (<0.2); Total Protein Urine Random 9 mg/dL (<12)
[2025-04-21 12:49] LABS: Albumin Level 3.6 g/dL (3.5-5.0); Anion Gap 9 (12-20); Blood Urea Nitrogen 40 mg/dL (9-16); Calcium 8.7 mg/dL (8.4-10.2); Carbon Dioxide 30 mmol/L (22-29); Chloride 105 mmol/L (96-108); Estimated Glomerular Filt Rate 31; Magnesium 2.2 mg/dL (1.6-2.6); Potassium 4.2 mmol/L (3.3-5.1); Sodium 140 mmol/L (135-145)
[2025-04-21 13:24] LABS: Parathyroid Hormone Intact 96.0 pg/mL (8.7-77.1)
== END 2025-04-21 10:23 | disposition home or self-care (01) ==
LOC: HO.LAB 10:22
PROVIDERS: PCP Internal Medicine Geriatric Medicine; Visit Provider Internal Medicine Nephrology
DX: I12.9 Hypertensive chronic kidney disease with stage 1 through stage 4 chronic kidney disease, or unspecified chronic kidney disease (principal); N18.4 Chronic kidney disease, stage 4 (severe); N25.0 Renal osteodystrophy
CPT/HCPCS: 36415; 80051; 81001; 82040; 82043; 82306; 82310; 82565; 82570; 83735; 83970; 84100; 84156; 84520; 85025; 87086

== ENCOUNTER → 2025-05-20 09:22 | Outpatient (BNV) | payer OTHER, SELFPAY | PROVIDERS: PCP Internal Medicine Geriatric Medicine; Visit Provider Internal Medicine | DX: I48.19 Other persistent atrial fibrillation (principal); Z95.0 Presence of cardiac pacemaker | CPT/HCPCS: 93294 ==

== ENCOUNTER 2025-05-30 11:32 | Inpatient (IN) | payer OTHER, SELFPAY ==
[2025-05-30] VITALS (11 sets, daily range): BP systolic 113–161; BP diastolic 47–88; PULSE 59–88; RESP 13–18; TEMP 36.4–36.5; O2SAT 94–98; BMI 25.1; BMI 23.6
--- NOTE | 2025-05-30 | ECG_ITS ---
Test Reason : AMS Blood Pressure : */* mmHG Vent. Rate : 66 BPM Atrial Rate : 61 BPM P-R Int : * ms QRS Dur : 168 ms QT Int : 482 ms P-R-T Axes : * -76 103 degrees QTcB Int : 505 ms Ventricular-paced rhythm Abnormal ECG When compared with ECG of 06-Jan-2024 17:07, Vent. rate has increased by 4 bpm Referred By: Generic ED Physician Electronically Signed By: DANAY WEBER MD
--- NOTE | ~2025-05-30 | CT_ITS ---
EXAMINATION: CT HEAD WITHOUT CONTRAST CLINICAL INFORMATION: Altered mental status. COMPARISON: 04/12/2023, 04/26/2019. TECHNIQUE: Contiguous axial imaging was performed from the skull base to vertex without intravenous administration of contrast. This CT examination was performed using dose optimization techniques as appropriate, variously including the following: *Automated exposure control *Adjustment of mA and/or kV according to patient size (this includes techniques or standardized protocols for targeted exams where dose is matched to indication/reason for exam; i.e. extremities or head) *Use of iterative reconstruction technique FINDINGS: There is no evidence of intracranial hemorrhage or extra-axial fluid collection. There is no mass effect, or edema. No CT evidence of acute territorial infarct. Ventricles, sulci, and cisterns are normal in size and configuration for patient age. Dennis cisterna magna. No hydrocephalus. No midline shift. Negative hyperdense MCA sign. Negative insular ribbon sign. Patchy periventricular and deep white matter hypoattenuation is consistent with moderate to severe small vessel ischemic changes. 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 Normal pituitary. Atheromatous calcification of the bilateral carotid siphons and V4 segments vertebral arteries bilaterally. Globes and orbital contents image normally. Left-sided ciliary body calcification present. Extracranial soft tissues demonstrate focal dermal thickening of the right frontal scalp, unchanged from the prior examination and nonspecific. The paranasal sinuses, mastoid air cells, and tympanic cavities are normally aerated. No suspicious bony abnormalities. There has been an old right frontoparietal craniotomy. There are no acute fractures evident. CT/CT head/brain wo IV con IMPRESSION: No acute intracranial abnormality. Stable chronic findings. Electronically signed by: Basilio Mcnamara MD 05/30/2025 02:50 PM [facility]
[2025-05-30 12:02] LABS: MANUAL DIFF FLAG NO
[2025-05-30 12:08] LABS: Hematocrit 30.1 % (42.0-52.0); Hemoglobin 10.0 g/dl (14.0-18.0); Imm Gran Abs Auto 0.06 X10*3/uL (0.00-0.03); Imm Gran Pct Auto 0.6 % (0.0-0.4); Lymphocytes Absolute Auto 2.8 X10*3/uL (1.2-4.9); Mean Corpuscular HGB Conc 33.2 g/dl (31.0-36.0); Mean Corpuscular Hemoglobin 28.1 pg (27.0-33.0); Mean Corpuscular Volume 84.6 fL (80.0-98.0); NRBC Abs Auto 0.000 X10*3/uL (0.0-0.012); NRBC Pct Auto 0.0 /100WBC (0.0-0.2); Platelet Count 164 X10*3/uL (160-400); Red Blood Count 3.56 X10*6/uL (4.60-5.80); White Blood Count 10.1 X10*3/uL (4.8-10.8)
[2025-05-30 12:17] LABS: VBG HCO3 33 mmol/L (22-26); VBG O2 % Saturation 88.0 %
[2025-05-30 12:32] LABS: Alanine Aminotransferase 15 U/L (0-40); Albumin Level 4.5 g/dL (3.5-5.0); Alkaline Phosphatase 66 U/L (39-117); Anion Gap 17 (12-20); Aspartate Amino Transferase 32 U/L (5-37); Blood Urea Nitrogen 67 mg/dL (9-16); Calcium 9.4 mg/dL (8.4-10.2); Carbon Dioxide 28 mmol/L (22-29); Chloride 94 mmol/L (96-108); Creatinine Clr Calc Pharmacy 23.8; Estimated Glomerular Filt Rate 27; Magnesium 2.6 mg/dL (1.6-2.6); Potassium 3.4 mmol/L (3.3-5.1); Sodium 136 mmol/L (135-145); Total Protein 7.5 g/dL (6.5-8.0)
[2025-05-30 12:37] LABS: Venous Blood Gas Refer to POC result
--- NOTE | 2025-05-30 12:40 | PC.NURSE ---
HEAD LOFT WORKER and family at bedside reporting patient has had progressive disorientation since monday. states started a new med last week to help with the fluid in his legs but the internal audit manager told him to stop it monday because of the disorientation.
--- NOTE | 2025-05-30 13:04 | ED_ITS ---
HPI - Altered Mental Status General Chief Complaint: Altered Mental Status Stated Complaint: AMS, POC 520 Time Seen by Provider: 05/30/25 11:53 History of Present Illness ED Provider: srikanth HPI narrative: AMS x 3 days per family. Worsening. RN who made initial assessment told me that the patient had some type of strange but very transient convulsive activity possibly unilateral in the left side and face with very rapid return to non convulsing. . 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 ELIGIBILITY TECHNICIAN family member came to the house yesterday morning of the and awoke him from sleep she found him confused she was repeating a lot of the things she was saying he did not appear to understand he was not acting normally. She did not notice any seizure activity any focal deficits any tactile fever. He was felt to be normal and in his baseline mental status the night before when family called him and he was joking around. Since that time he has been with a quite flat affect minimally responsive verbally but awake oriented making eye contact family feels his facial droop and other deficits are at baseline no trauma or fall reported Related Data Home Medications ?Medication ?Instructions ?Recorded ?Confirmed carvedilol 3.125 mg tablet 3.125 mg PO BID 07/02/20 rosuvastatin 10 mg tablet 10 mg PO DAILY 07/02/2012/18 blood sugar diagnostic #10 ea 12/18/20 01/09/25 lancets 28 gauge #100 ea 12/18/20 01/09/25 blood-glucose meter (FreeStyle #1 ea 04/02/21 01/09/25 [place] Lite kit) pen needle, diabetic 31 gauge x #1,200 ea 04/02/2111/01 (BD Ultra-Fine Short Pen Needle) insulin aspart U-100 100 unit/mL 12 unit subcut DAILY@ 1730 05/30/22 01/09/25 (3 mL) subcutaneous pen (Novolog FlexPen U-100 Insulin aspart) omeprazole 20 mg capsule,delayed 20 mg PO DAILY candelario hou 05/30/22 01/09/25 release albuterol sulfate 90 mcg/actuation 2 puff inhalation Q 6H PRN wheezing 07/26/22 01/09/25 aerosol inhaler (Ventolin HFA) amlodipine 2.5 mg tablet 2.5 mg PO QAM 07/26/2201/09 calcitriol 0.25 mcg capsule 0.25 mcg PO Q OTHER DAY 01/09/25 insulin aspart U-100 100 unit/mL 8 unit subcut DAILY@1 130 05/16/23 01/09/25 (3 mL) subcutaneous pen (Novolog FlexPen U-100 Insulin aspart) insulin aspart U-100 100 unit/mL 10 unit subcut DAILY@ 0730 05/16/23 01/09/25 (3 mL) subcutaneous pen (Novolog FlexPen U-100 Insulin aspart) insulin degludec 100 unit/mL (3 28 unit subcut BEDTIME 05/16/23 01/09/25 mL) subcutaneous pen (Tresiba FlexTouch U-100 insulin) spironolactone 25 mg tablet 12.5 mg PO QAM 05/16/23 Previous Rx's ?Medication ?Instructions ?Recorded acetaminophen 650 mg 650 mg PO Q12H PRN for pain #60 07/18/22 tablet,extended release tabs torsemide 20 mg tablet 80 mg (4 x 20 mg) PO DAILY # 120 05/17/23 tabs colchicine 0.6 mg tablet 0.6 mg PO DAILY #7 tabs 01/18 02/09 tramadol 50 mg tablet 50 mg PO Q8H PRN severe pain 02/14/24 (scale score 7-10) #10 tabs fluticasone propionate 50 2 spray intranasal DAILY 30 days 11/05/24 mcg/actuation nasal #15.8 mL spray,suspension apixaban 2.5 mg tablet (Eliquis) 2.5 mg PO BID #180 ta bs 01/21/25 Allergies Allergy/AdvReac Type Severity Reaction Status Date / Time NSAIDS due to CKD Allergy Unknown n/a Uncoded 05/30/25 11:47 [facility] Past Medical History Medical History Tricuspid regurgitation Kidney disease Pleuritic chest pain Cough Hemoptysis History of CVA with residual deficit (~04/2005) History of COVID-19 (~06/2020) SDH (subdural hematoma) Essential hypertension Normally functioning cardiac pacemaker present (~2006) Atherosclerotic cardiovascular disease Hyperlipidemia GERD (gastroesophageal reflux disease) Pacemaker (~2006) Diabetes mellitus Persistent atrial fibrillation Surgical History History of heart artery stent History of craniotomy History of permanent cardiac pacemaker placement (~09/2006) Family History Family History Father No problems noted. Mother No problems noted. Social History Social History Household Members: None Housing: Apartment Do you presently have visiting nurse or other home services: Yes Alcohol intake: unknown Comment: able to verbalize back the need to use call perez if he needs to get OOB Patient Tobacco Use Status: Former Tobacco user Second Hand Smoke Exposure: No Advance Directives: Yes Advance Directives on File: Yes Advance Directives Date on File: 05/30/25 Do you have a plan to hurt others: No Plan service: No Current occupational status: retired Physical Exam ED Exam Exam: GENERAL: Well appearing. No apparent distress. Alert. HEAD/NECK: Normal to inspection. Neck supple. No cervical lymphadenopathy. EYES: Normal to inspection. Sclera non-icteric. ENMT: External nose normal. RESPIRATORY: Respiratory effort normal. Lungs clear to auscultation bilaterally. CARDIOVASCULAR: Regular rate. Normal rhythm. No murmur. No rubs. GI: Soft, non-tender, non-distended. No rebound or guarding. No masses palpable. No hepatosplenomegaly. SKIN: No jaundice. NEUROLOGICAL: Alert. PSYCHIATRIC: Alert. Appearance appropriate for situation. Attitude cooperative. OTHER: Comprehensive Neuro exam: intact strong face deviation and shoulder shrug. Sensation intact to light touch throughout * 5 out of 5 strength in right upper and right lower extremity. The patient has a visible left facial droop family feels this is chronic. He does not lift the left arm to command and he has got 4-5 strength left lower extremity Vital Signs: Vital Signs - 24 hr 05/30/25 11:45 05/30/25 12:02 05/30/25 13:44 Temperature 97.7 F Pulse Rate 67 77 Respiratory Rate 18 18 Blood Pressure 154/56 H 161/57 H Pulse Oximetry 95 98 96 Oxygen Delivery Method Room Air Room Air 05/30/25 13:53 05/30/25 14:20 05/30/25 16:00 Temperature Pulse Rate 61 60 68 Respiratory Rate 15 18 18 Blood Pressure 143/53 H 150/62 H 138/88 Pulse Oximetry 98 97 98 Oxygen Delivery Method Room Air Room Air Room Air BMI result Body Mass Index 25.1 Medications Administered Generic Name Dose Route Start Last Admin Trade Name Freq PRN Reason Stop Dose Admin Heparin Sodium (Porcine) 5,000 unit 05/30/25 18:00 05/30/25 17:21 Heparin Sodium,Porcine 5,000 Unit/Ml Vial SUBCUT Not Given Q12H LEYLA Discontinued Medications Generic Name Dose Route Start Last Admin Trade Name Freq PRN Reason Stop Dose Admin Lactated Ringer's 1,000 mls @ 999 mls/hr 05/30/25 13:15 05/30/25 15:01 Lr IV 05/30/25 14:15 Infused .Q1H1M LEYLA Infusion Levetiracetam 1,500 mg in 100 mls @ 400 mls/hr 05/30/25 14:06 05/30/25 15:01 Keppra IV 05/30/25 14:20 Infused ONCE ONE Infusion Lactated Ringer's 1,000 mls @ 999 mls/hr 05/30/25 14:45 05/30/25 16:35 Lr IV 05/30/25 16:45 999 mls/hr .Q1H1M LEYLA Administration Insulin Human Regular 10 unit 05/30/25 14:33 05/30/25 15:24 Insulin Regular, Human 100 Unit/Ml 10 Ml Vial IVPUSH 05/30/25 14:34 4 unit ONCE ONE Administration Medical Decision Making Medical Decision Making MDM Narrative: Medical Decision Making: Greater than 24 hours of nonfocal AMS possible focal transient convulsive episode no prior surgery epilepsy per family. Could be focal seizure, CVA, ICH, toxic or metabolic encephalopathy. Plan for head CT no indication for emergent CT head and neck imaging given the time duration patient will need MR and nonemergent neurology consultation at minimal. Pending labs to assess for metabolic derangement or infection. Urinalysis though no urinary symptoms described. ___ After labs and imaging I do not see any clear explanation for the patient's mentation. The could be atypical CVA or focal seizures with less likely nonconvulsive seizure activity. There was no clear infection or metabolic derangement. Urinalysis not suggestive UTI. There was no clear toxidrome or suspicion clinically of intoxication though this was considered. Preliminary Favored Differential Diagnosis: Toxic or metabolic encephalopathy, CVA, seizure or epileptic disorder, dehydration among additional considered etiologies Testing Interpreted Independently: ?ECG: Paced rhythm with expected morphology rate 6 6 Radiology or Lab testing Results Reviewed: ?See below for details Consults: ?See below for details Independent Historians/External Chart Reviews: ?See below for details Social Determinants of Health Impacting MDM/Planning: ?See below for details Lab Data 05/30/25 11:58 05/30/25 11:58 Labs: Lab Results 05/30/25 05/30/25 05/30/25 Range/Units 11:58 12:05 13:00 WBC 10.1 (4.8-10.8) X10*3/uL RBC 3.56 L (4.60-5.80) X10*6/uL Hgb 10.0 L (14.0-18.0) g/dl Hct 30.1 L (42.0-52.0) % MCV 84.6 (80.0-98.0) fL MCH 28.1 (27.0-33.0) pg MCHC 33.2 (31.0-36.0) g/dl RDW 14.8 (11.0-16.0) % Plt Count 164 (160-400) X10*3/uL MPV 9.3 L (9.4-12.4) fL Immature Gran % (Auto) 0.6 H (0.0-0.4) % Neut % (Auto) 64.9 (45-73) % Lymph % (Auto) 27.4 (20-40) % Pitt % (Auto) 5.5 (2-11) % Eos % (Auto) 1.3 (0-4) % Baso % (Auto) 0.3 (0-2) % Lymph # (Auto) 2.8 (1.2-4.9) X10*3/uL Pitt # (Auto) 0.6 (0.1-1.2) X10*3/uL Eos # (Auto) 0.1 (0.0-0.4) X10*3/uL Baso # (Auto) 0.0 (0.0-0.2) X10*3/uL Abs Immat Gran (auto) 0.06 H (0.00-0.03) X10*3/uL Absolute Neuts (auto) 6.6 (2.0-8.3) x10*3/uL Absolute Nucleated RBC 0.000 (0.0-0.012) X10*3/uL Nucleated RBC % (auto) 0.0 (0.0-0.2) /100WBC VBG pH 7.44 H (7.32-7.43) VBG pCO2 47 mmHg VBG pO2 63 mmHg VBG HCO3 33 H (22-26) mmol/L VBG O2 Saturation 88.0 % VBG Base Excess 8.2 mmol/L Sodium 136 (135-145) mmol/L Potassium 3.4 (3.3-5.1) mmol/L Chloride 94 L (96-108) mmol/L Carbon Dioxide 28 (22-29) mmol/L Anion Gap 17 (12-20) BUN 67 H (9-16) mg/dL Creatinine 2.35 H (0.5-1.4) mg/dL Estim Creat Clear Calc 23.8 Estimated GFR 27 POC Glucose (60-115) mg/dL Random Glucose 452 H* (60-115) mg/dL Estimat Average Glucose 177 mg/dL Hemoglobin A1c % 7.8 H (<6.0) % Calcium 9.4 D (8.4-10.2) mg/dL Magnesium 2.6 (1.6-2.6) mg/dL Total Bilirubin 0.9 (0.0-1.0) mg/dL AST 32 (5-37) U/L ALT 15 (0-40) U/L Alkaline Phosphatase 66 (39-117) U/L C-Reactive Protein 0.13 (< or = 0.50) mg/dL Total Protein 7.5 (6.5-8.0) g/dL Albumin 4.5 (3.5-5.0) g/dL Beta-Hydroxybutyrate 0.26 (0.02-0.27) mmol/L TSH 2.04 (0.32-4.0) uIU/mL Urine Color Urine Appearance Urine pH (5.0-9.0) Ur Specific Ararat (1.005-1.025) Urine Protein (Neg-Trace) mg/dL Urine Glucose (UA) (Negative) mg/dL Urine Ketones (Negative) mg/dL Urine Blood (Negative) Urine Nitrite (Negative) Ur Leukocyte Esterase (Negative) Influenza Type A (PCR) NEGATIVE (Negative) Influenza Type B (PCR) NEGATIVE (Negative) RSV RNA Qual (PCR) NEGATIVE (Negative) SARS-CoV-2 RNA (RT-PCR) NEGATIVE (Negative) 05/30/25 05/30/25 05/30/25 Range/Units 14:19 14:59 16:33 WBC (4.8-10.8) X10*3/uL RBC (4.60-5.80) X10*6/uL Hgb (14.0-18.0) g/dl Hct (42.0-52.0) % MCV (80.0-98.0) fL MCH (27.0-33.0) pg MCHC (31.0-36.0) g/dl RDW (11.0-16.0) % Plt Count (160-400) X10*3/uL MPV (9.4-12.4) fL Immature Gran % (Auto) (0.0-0.4) % Neut % (Auto) (45-73) % Lymph % (Auto) (20-40) % Pitt % (Auto) (2-11) % Eos % (Auto) (0-4) % Baso % (Auto) (0-2) % Lymph # (Auto) (1.2-4.9) X10*3/uL Pitt # (Auto) (0.1-1.2) X10*3/uL Eos # (Auto) (0.0-0.4) X10*3/uL Baso # (Auto) (0.0-0.2) X10*3/uL Abs Immat Gran (auto) (0.00-0.03) X10*3/uL Absolute Neuts (auto) (2.0-8.3) x10*3/uL Absolute Nucleated RBC (0.0-0.012) X10*3/uL Nucleated RBC % (auto) (0.0-0.2) /100WBC VBG pH (7.32-7.43) VBG pCO2 mmHg VBG pO2 mmHg VBG HCO3 (22-26) mmol/L VBG O2 Saturation % VBG Base Excess mmol/L Sodium (135-145) mmol/L Potassium (3.3-5.1) mmol/L Chloride (96-108) mmol/L Carbon Dioxide (22-29) mmol/L Anion Gap (12-20) BUN (9-16) mg/dL Creatinine (0.5-1.4) mg/dL Estim Creat Clear Calc Estimated GFR POC Glucose 343 H 269 H (60-115) mg/dL Random Glucose (60-115) mg/dL Estimat Average Glucose mg/dL Hemoglobin A1c % (<6.0) % Calcium (8.4-10.2) mg/dL Magnesium (1.6-2.6) mg/dL Total Bilirubin (0.0-1.0) mg/dL AST (5-37) U/L ALT (0-40) U/L Alkaline Phosphatase (39-117) U/L C-Reactive Protein (< or = 0.50) mg/dL Total Protein (6.5-8.0) g/dL Albumin (3.5-5.0) g/dL Beta-Hydroxybutyrate (0.02-0.27) mmol/L TSH (0.32-4.0) uIU/mL Urine Color Yellow Urine Appearance Clear Urine pH 6.0 (5.0-9.0) Ur Specific [place] 1.015 (1.005-1.025) Urine Protein Trace (Neg-Trace) mg/dL Urine Glucose (UA) 250 H (Negative) mg/dL Urine Ketones Negative (Negative) mg/dL Urine Blood Negative (Negative) Urine Nitrite Negative (Negative) Ur Leukocyte Esterase Negative (Negative) Influenza Type A (PCR) (Negative) Influenza Type B (PCR) (Negative) RSV RNA Qual (PCR) (Negative) SARS-CoV-2 RNA (RT-PCR) (Negative) Discharge Plan Discharge Clinical Impression: Encephalopathy Patient Disposition: Admitted As Inpatient
[2025-05-30] MEDS: Lactated Ringers 1,000 ML 999 ML IV ×3 (13:43→16:35)
--- NOTE | 2025-05-30 13:48 | PC.NURSE ---
Patient had 10 second episode of turning head to side, full body shaking and nystagmus noted. Immediately alert and responsive after episode. Family denies hx of seizures
[2025-05-30 14:09] LABS: Resp Syncy Virus RNA Qual PCR NEGATIVE (Negative); SARS COV2 PCR INHOUSE NEGATIVE (Negative)
[2025-05-30] MEDS: levETIRAcetam in NaCl (iso-os) 1,500 MG/100 ML PIGGYBACK 400 MG IV (14:13)
[2025-05-30 14:30] LABS: Appearance Urine Clear; Glucose Urine UA 250 mg/dL (Negative); PH 6.0 (5.0-9.0); Specific Gravity - Urine 1.015 (1.005-1.025)
[2025-05-30 15:15] LABS: Thyroid Stimulating Hormone 2.04 uIU/mL (0.32-4.0)
[2025-05-30 15:25] LABS: Glucose, Whole Blood 343 mg/dL (60-115)
[2025-05-30 16:45] LABS: Glucose, Whole Blood 269 mg/dL (60-115)
--- NOTE | 2025-05-30 17:03 | PC.NURSE ---
Pacemaker not MRI compatible per previous records in patients chart
--- NOTE | 2025-05-30 17:15 | PM.IMHP ---
History of Present Illness Date of Service: 05/30/25 Chief Complaint: altered mental status History from patient in Kiswahili as well as from his daughter/healthcare proxy in Frisian. 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 Reportedly was acting abnormally yesterday morning, confused and repeating what the TWIST MAKER was saying without apparently understanding it. Today his daughter noted him to be confused as well as minimally responsive. Upon arrival in the ED, he reportedly had shaking of both upper extremities without LOC. He was awake right afterwards. Currently, he is pretty much at his baseline per his daughter. No new focal weakness. No history of seizures. No fever, chills, cough, chest pain, nausea, vomiting, or abdominal pain. His daughter says he was recently diagnosed with B12 deficiency and is supposed to be on injections but hasn't started yet. He denies loss of sensation. In the ED, SCr was around baseline at 2.35. UA bland. Glucose 452; normal pH and negative ketones. CT without any acute findings. verbally but awake oriented making eye contact family feels his facial droop and other deficits are at baseline no trauma or fall reported Review of Systems Review of Systems: Yes all other systems are reviewed and are negative [facility] Medical History (Updated 05/30/25 @ 17:39 by Al Faria MD) Tricuspid regurgitation Kidney disease Pleuritic chest pain Cough Hemoptysis History of CVA with residual deficit (~04/2005) History of COVID-19 (~06/2020) SDH (subdural hematoma) Essential hypertension Normally functioning cardiac pacemaker present (~2006) Atherosclerotic cardiovascular disease Hyperlipidemia GERD (gastroesophageal reflux disease) Pacemaker (~2006) Diabetes mellitus Persistent atrial fibrillation Family History Father No problems noted. Mother No problems noted. Surgical History History of heart artery stent History of craniotomy History of permanent cardiac pacemaker placement (~09/2006) Social History Household Members: None Housing: Apartment Do you presently have visiting nurse or other home services: Yes Alcohol intake: unknown Comment: able to verbalize back the need to use call perez if he needs to get OOB Patient Tobacco Use Status: Former Tobacco user Second Hand Smoke Exposure: No Advance Directives Date on File: 05/30/25 service: No Current occupational status: retired Meds Allergies Allergy/AdvReac Type Severity Reaction Status Date / Time NSAIDS due to CKD Allergy Unknown n/a Uncoded 05/30/25 11:47 Active Medications: Current Medications Acetaminophen (Acetaminophen 325 Mg Tablet) 650 mg PO Q6H PRN PRN Reason: Pain, Mild 1-3,fever,headache Calcium Carbonate (Calcium Carbonate 750 Mg Tab.Chew) 750 mg PO Q4H PRN PRN Reason: Heartburn Dextrose (Dextrose 50 % 25 Gm/50 Ml Syringe) 25 gm IVPUSH Q15M PRN; Protocol PRN Reason: per Hypoglycemia Standing Ord. Glucose (Glucose Gel 15 Gm Gel..Gram.) 15 gm PO Q15M PRN; Protocol PRN Reason: per Hypoglycemia Standing Ord. Heparin Sodium (Porcine) (Heparin Sodium,Porcine 5,000 Unit/Ml Vial) 5,000 unit SUBCUT Q[facility]H [facility] Insulin Human Lispro (Insulin Lispro 100 Unit/Ml 3 Ml Vial) 0 unit SUBCUT QIDACHS [facility]; Protocol Magnesium Hydroxide (Milk Of Magnesia 30 Ml Oral.Susp) 30 ml PO DAILY PRN PRN Reason: Constipation Melatonin (Melatonin 3 Mg Tablet) 6 mg PO BEDTIME PRN PRN Reason: Insomnia Ondansetron HCl (Ondansetron Hcl 4 Mg/2 Ml Vial) 4 mg IVPUSH Q8H PRN PRN Reason: Nausea and Vomiting Sodium Chloride (0.9 % Sodium Chloride Flush 3 Ml Syringe) [facility] Medications ?Medication ?Instructions ?Recorded ?Confirmed ?Last Taken ?Type carvedilol 3.125 mg tablet 3.125 mg PO BID 07/02/20 01/09/25 10/14/22 History rosuvastatin 10 mg tablet 10 mg PO DAILY 07/02/20 01/09/25 Unknown History blood sugar diagnostic #10 ea 12/18/20 01/09/25 Unknown History lancets 28 gauge #100 ea 12/18/20 01/09/25 Unknown History blood-glucose meter (FreeStyle #1 ea 04/02/21 01/09/25 Unknown History Phoenix Lite kit) pen needle, diabetic 31 gauge x #1,200 ea 04/02/21 01/09/25 Unknown History 5/16 (BD Ultra-Fine Short Pen Needle) insulin aspart U-100 100 unit/mL 12 unit subcut DAILY@1730 05/30/22 01/09/25 Unknown History (3 mL) subcutaneous pen (Novolog FlexPen U-100 Insulin aspart) omeprazole 20 mg capsule,delayed 20 mg PO DAILY indegestion 05/30/22 01/09/25 10/14/22 History release albuterol sulfate 90 mcg/actuation 2 puff inhalation Q6H PRN wheezing 07/26/22 01/09/25 Unknown History aerosol inhaler (Ventolin HFA) amlodipine 2.5 mg tablet 2.5 mg PO QAM 07/26/22 01/09/25 10/14/22 History calcitriol 0.25 mcg capsule 0.25 mcg PO Q OTHER DAY 07/26/22 01/09/25 Unknown History insulin aspart U-100 100 unit/mL 8 unit subcut DAILY@1130 05/16/23 01/09/25 Unknown History (3 mL) subcutaneous pen (Novolog FlexPen U-100 Insulin aspart) insulin aspart U-100 100 unit/mL 10 unit subcut DAILY@0730 05/16/23 01/09/25 Unknown History (3 mL) subcutaneous pen (Novolog FlexPen U-100 Insulin aspart) insulin degludec 100 unit/mL (3 28 unit subcut BEDTIME 05/16/23 01/09/25 Unknown History mL) subcutaneous pen (Tresiba FlexTouch U-100 insulin) spironolactone 25 mg tablet 12.5 mg PO QAM 05/16/23 01/09/25 Unknown History Physical Exam Vital Signs and Narrative: Vital Signs: Last Vital Signs Temp 97.7 F 05/30/25 12:02 Pulse 68 05/30/25 16:00 Resp 18 05/30/25 16:00 BP 138/88 05/30/25 16:00 Pulse Ox 98 05/30/25 16:00 O2 Del Method Room Air 05/30/25 16:00 BMI result Body Mass Index 25.1 Gen: in no acute distress HEENT: sclera anicteric, moist mucus membranes Neck: supple Lungs: clear to auscultation bilaterally Heart: regular rate and rhythm, no murmurs Abd: soft, non-tender, non-distended Ext: no edema Skin: warm/well-perfused Neuro: alert and oriented x3, chronic L facial droop, LUE weakness, LLE weakness Psych: appropriate affect Results Labs 05/30/25 11:58 05/30/25 11:58 Labs: Laboratory Results - last 24 hr 05/30/25 05/30/25 05/30/25 11:58 12:05 13:00 MCV 84.6 MCH 28.1 MCHC 33.2 RDW 14.8 Plt Count 164 MPV 9.3 L Immature Gran % (Auto) 0.6 H Neut % (Auto) 64.9 Lymph % (Auto) 27.4 Trigg % (Auto) 5.5 Eos % (Auto) 1.3 Baso % (Auto) 0.3 Lymph # (Auto) 2.8 Trigg # (Auto) 0.6 Eos # (Auto) 0.1 Baso # (Auto) 0.0 Abs Immat Gran (auto) 0.06 H Absolute Neuts (auto) 6.6 Absolute Nucleated RBC 0.000 Nucleated RBC % (auto) 0.0 VBG pH 7.44 H VBG pCO2 47 VBG pO2 63 VBG HCO3 33 H VBG O2 Saturation 88.0 VBG Base Excess 8.2 Anion Gap 17 Estim Creat Clear Calc 23.8 Estimated GFR 27 POC Glucose Random Glucose 452 H* Estimat Average Glucose 177 Hemoglobin A1c % 7.8 H Calcium 9.4 D Magnesium 2.6 Total Bilirubin 0.9 AST 32 ALT 15 Alkaline Phosphatase 66 C-Reactive Protein 0.13 Total Protein 7.5 Albumin 4.5 Beta-Hydroxybutyrate 0.26 TSH 2.04 Urine Color Urine Appearance Urine pH Ur Specific [place] Urine Protein Urine Glucose (UA) Urine Ketones Urine Blood Urine Nitrite Ur Leukocyte Esterase Influenza Type A (PCR) NEGATIVE Influenza Type B (PCR) NEGATIVE RSV RNA Qual (PCR) NEGATIVE SARS-CoV-2 RNA (RT-PCR) NEGATIVE 05/30/25 05/30/25 05/30/25 14:19 14:59 16:33 MCV MCH MCHC RDW Plt Count MPV Immature Gran % (Auto) Neut % (Auto) Lymph % (Auto) Trigg % (Auto) Eos % (Auto) Baso % (Auto) Lymph # (Auto) Trigg # (Auto) Eos # (Auto) Baso # (Auto) Abs Immat Gran (auto) Absolute Neuts (auto) Absolute Nucleated RBC Nucleated RBC % (auto) VBG pH VBG pCO2 VBG pO2 VBG HCO3 VBG O2 Saturation VBG Base Excess Anion Gap Estim Creat Clear Calc Estimated GFR POC Glucose 343 H 269 H Random Glucose Estimat Average Glucose Hemoglobin A1c % Calcium Magnesium Total Bilirubin AST ALT Alkaline Phosphatase C-Reactive Protein Total Protein Albumin Beta-Hydroxybutyrate TSH Urine Color Yellow Urine Appearance Clear Urine pH 6.0 Ur Specific [place] 1.015 Urine Protein Trace Urine Glucose (UA) 250 H Urine Ketones Negative Urine Blood Negative Urine Nitrite Negative Ur Leukocyte Esterase Negative Influenza Type A (PCR) Influenza Type B (PCR) RSV RNA Qual (PCR) SARS-CoV-2 RNA (RT-PCR) Imaging Radiologist's Impressions: Impressions Head CT 05/30/25 14:32 IMPRESSION: No acute intracranial abnormality. Stable chronic findings. 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 Now back to baseline. Question of recent diagnosis of B12 deficiency acute encephalopathy - admit to telemetry on observation, consult Neuro, obtain EEG [possibly will have to do as outpt as it is the weekend], check B12/MMA/homocysteine/folate and replete if needed hx CVA; apixaban HTN: amlodipine, carvedilol, spironolactone, torsemide HLD: statin CKD3: Cr at baseline, continue calcitriol DM2, A1c 7.8: basal-bolus insulin VTE prophylaxis: apixaban dispo: eventual home code status: DNR/DNI per pt and daughter/HCP I anticipate that the patient will stay at least 2 midnights as an inpatient in the hospital due to the above reasons. It is neither reasonable nor safe to care for them in a less acute setting. Quality Stroke Does the patient have a stroke diagnosis?: No VTE Prior VTE?: No VTE Risk Level:: Medical - moderate - high VTE Device Contraindication: N/A - Device Ordered VTE Drug Contraindication: N/A - Med Ordered
[2025-05-30 17:30] LABS: Procalcitonin 0.12 ng/mL
--- OUTSIDE RECORDS SUMMARY | 2025-05-30 17:31 | XMS_ITS | Encounter Summary ---
Author Organization [facility] Address [address] [place] [address] [address] [place] [address] Care Team Providers Care Brand Attendant Name Role Phone Name, Juan M BLUE Primary Care Provider [phone] Gita Girard PharmD Unavailable [phone] Encounter Details Date Type Department Care Team (Late st Contact Info) Description 08/16/2022 Abstract [facility] [address] [place] [address] Gita Girard, PharmD [address] [place] [address] Social History Tobacco Use Types Packs/Day Years [...] Care Team (Late st Contact Info) Description 06/05/2025 10:30 AM EST Office Visit [facility] OPTOMETRY [address] [place] [address] Leslie Urrutia, OD [address] [place] [address] 06/23/2025 11:30 AM EST Medication Management [facility] [address] [place] [address] Gita Girard PharmD [address] [place] [address] 08/07/2025 10:15 AM EST Office Visit [facility] ADULT DENTAL [address] [place] [address] Cathi Saul documented as of this encounter Goals Goal Patient Goal Type Associated Problems Recent Progress Patient-Stated? Author Patient will adhere to medication regimen General No Gita Girard PharmD Note: Take medications, including insulin, as prescribed. Hemoglobin A1c < 8 Result Component 6.6( 10:08 AM EST) No Gita Girard PharmD Record your blood [...] documented as of this encounter Care Teams Brand Attendant Relationship Specialty Start Date End Date Name, MD Juan M [address] [place] [address] PCP - General Family Medicine 01/21/19 Gita Girard PharmD [address] [place] [address] Pharmacist Internal Medicine 07/14/22 [employer] 10/28/24 documented as of this encounter
--- OUTSIDE RECORDS SUMMARY | 2025-05-30 17:31 | XMS_ITS | Encounter Summary ---
Author Organization [facility] Address [address] [place] [address] Phone Care Team Providers Care Sample Finisher Name Role Phone Anthony Ramirez MD Primary Care Provider Unav ailable Encounter Details Date Type Department Care Team (Late st Contact Info) Description 11/22/2016 [facility] Visit [facility] [address] [place], [place] [phone] Provider, MD Cindy [address] [place] [address] Social History Tobacco Use Types Packs/Day [...] on filedocumented in this encounter Care Teams Sample Finisher Relationship Specialty Start Date End Date Anthony Ramirez MD PCP - General 07/06/16 documented as of this encounter
--- OUTSIDE RECORDS SUMMARY | 2025-05-30 17:31 | XMS_ITS | Encounter Summary ---
Author Organization [facility] Address [address] [facility] [address] [place] [address] Phone Care Team Providers Care Clothing Trades Workers Name Role Phone Name, Juan M BLUE Primary Care Provider [phone] Reason for Visit * Reason Comments Med Refill Encounter Details Date Type Department Care Team (Late Contact Info) Description 02/14/2022 Refill [facility] [address] [facility] [address] [place] [address] Colt Alfonso MD [address] [place] [address] Social History Tobacco Use Types Packs/Day Years [...] Encounters Date Type Department Care Team (Late Contact Info) Description 10/27/2025 1:30 PM EDT Office [facility] [address] [place] [address] Arpit Bundy MD [address] [facility] [address] [place] [phone] documented as of this encounter Visit Diagnoses Not on filedocumented in this encounter Care Teams Clothing Trades Workers Relationship Specialty Start Date End Date Name, MD Juan M [address] [place] [address] PCP - General Internal Medicine 09/29/20 documented as of this encounter
--- OUTSIDE RECORDS SUMMARY | 2025-05-30 17:31 | XMS_ITS | Encounter Summary ---
Author Organization [facility] Address [address] [place] [address] Phone Care Team Providers Care Caustic Mixer Name Role Phone Anthony Ramirez MD Primary Care Provider Unav ailable Encounter Details Date Type Department Care Team (Late st Contact Info) Description 08/08/2016 [facility] Visit [facility] [address] [place], [place] [phone] Provider, MD Cindy [address] [place] [address] Social History Tobacco Use Types Packs/Day [...] on filedocumented in this encounter Care Teams Caustic Mixer Relationship Specialty Start Date End Date Anthony Ramirez MD PCP - General 07/06/16 documented as of this encounter
--- OUTSIDE RECORDS SUMMARY | 2025-05-30 17:31 | XMS_ITS | Encounter Summary ---
Author Organization [facility] Address [address] [facility] 7t [place] [address] Care Team Providers Care Dry Ice Machine Operator Name Role Phone Name, Juan M BLUE Primary Care Provider [phone] Gita Girard PharmD Unavailable [phone] Reason for Visit * Reason Onset Date Comments Medication Question 04/29/2025 Encounter Details Date Type Department Care Team ([facility] st Contact Info) Description 04/29/[address] [facility] [address] [place] [address] Name, MD Juan M [address] [place] [address] Medication Question Social History Tobacco Use Types Packs/Day Years [...] the past 12 months, has t he [employer], gas, oil or water [employer] threatened to shut off services in your [...] encounter Miscellaneous Notes * Telephone Encounter - Jaimie Aggarwal RN - 04/29/2025 2:09 PM EST Telephone call returned to pt regarding below message. Pt reports his Elizabeth 3 reader isn't workingright . Inquired what he means by that. He states sometimes it gives one number and then a minute later it gives a different number. It is functional and turns on, he just feels like it is inaccurate. Unsure whether user error or machine truly not working properly. Pt requesting Giat call him as he sees her for this. He states would like an appointment with her if possible. Informed I would send message. * Telephone Encounter - Juan M Ospina - 04/29/2025 10:36 AM EST Tc from [facility] ([facility]) reporting that pt glucose machine is no longer working. [facility] is requesting a new glucose monitor. Any questions contact pt [phone] documented in this encounter Plan of Treatment Upcoming Encounters Date Type Department Care Team (Late st Contact Info) Description 06/05/2025 10:30 AM EST Office Visit [facility] OPTOMETRY [address] [place] [address] Leslie Urrutia, OD [address] [place] [address] 06/23/2025 11:30 AM EST Medication Management [facility] [address] [place] [address] Gita Girard PharmD [address] [place] [address] 08/07/2025 10:15 AM EST Office Visit [facility] ADULT DENTAL [address] [place] [address] Cathi Saul documented as of this encounter Goals Goal Patient Goal Type Associated Problems Recent Progress Patient-Stated? Author Patient will adhere to medication regimen General No Gita Girard, PharmD Note: Take medications, including insulin, as prescribed. Hemoglobin A1c < 8 Result Component 6.6( 10:08 AM EST) No Gita Girard PharmBarrie Record your blood sugar as directed Result [...] as of this encounter Care Teams Dry Ice Machine Operator Relationship Specialty Start Date End Date Name, MD Juan M [address] [place] [address] PCP - General Family Medicine 01/21/19 Gita Girard PharmD [address] [place] [address] Pharmacist Internal Medicine 07/14/22 [employer] 10/28/24 documented as of this encounter
--- OUTSIDE RECORDS SUMMARY | 2025-05-30 17:31 | XMS_ITS | Encounter Summary ---
Author Organization [facility] Address [address] [place] [phone] Phone Care Team Providers Care Acid Strength Inspector Name Role Phone Anthony Ramirez MD Primary Care Provider Unav ailable Encounter Details Date Type Department Care Team (Late st Contact Info) Description 11/22/2016 [facility] Visit [facility] [address] [place], [place] [phone] Provider, MD Cindy [address] [place] [address] Social History Tobacco Use Types Packs/Day [...] on filedocumented in this encounter Care Teams Acid Strength Inspector Relationship Specialty Start Date End Date Anthony Ramirez MD PCP - General 07/06/16 documented as of this encounter
--- OUTSIDE RECORDS SUMMARY | 2025-05-30 17:31 | XMS_ITS | Encounter Summary ---
Author Organization [employer] Address [address] [facility] 7t [place] [address] Care Team Providers Care Acid Polymerization Operator Name Role Phone Name, Juan M BLUE Primary Care Provider [phone] Gita Girard PharmD Unavailable [phone] Reason for Visit * Reason Onset Date Comments rs same day cancellation 11/08/2024 Encounter Details Date Type Department Care Team (Late st Contact Info) Description 11/08/2024 Telephone [facility] ADULT DENTAL [address] [place] [address] Cathi Saul rs same day cancellation Social [...] Description 06/05/2025 10:30 AM EST Office Visit [facility] OPTOMETRY [address] [place] [address] Leslie Urrutia, OD [address] [place] [address] 06/23/2025 11:30 AM EST Medication Management [facility] [address] [place] [address] Gita Girard, PharmD [address] [place] [address] 08/07/2025 10:15 AM EST Office Visit [facility] ADULT DENT[facility] [address] [place] [address] Cathi Saul documented as of this encounter Goals Goal Patient Goal Type Associated Problems Recent Progress Patient-Stated? Author Patient will adhere to medication regimen General No Gita Girard PharmD Note: Take medications, including insulin, as prescribed. Hemoglobin A1c < 8 Result Component 6.6( 5 10:08 AM EST) No Gita Girard PharmD [...] documented as of this encounter Care Teams Acid Polymerization Operator Relationship Specialty Start Date End Date Name, MD Juan M [address] [place] [address] PCP - General Family Medicine 01/21/19 Gita Girard PharmD [address] [place] [address] Pharmacist Internal Medicine 07/14/22 [facility] 10/28/24 documented as of this encounter
--- OUTSIDE RECORDS SUMMARY | 2025-05-30 17:31 | XMS_ITS | Encounter Summary ---
Author Organization [facility] Address [address] [place] [address] Phone Care Team Providers Care Retention Manager Name Role Phone Anthony Ramirez MD Primary Care Provider Unav ailable Encounter Details Date Type Department Care Team (Late st Contact Info) Description 09/19/2016 Office Visit [facility] [address] [place], [place] [phone] Provider, MD Cindy [address] [place] [address] Social History Tobacco Use Types Packs/Day [...] on filedocumented in this encounter Care Teams Retention Manager Relationship Specialty Start Date End Date Anthony Ramirez MD PCP - General 07/06/16 documented as of this encounter
--- OUTSIDE RECORDS SUMMARY | 2025-05-30 17:31 | XMS_ITS | Patient Health Record ---
Author Organization [facility] Address [address] [place] [address] Care Team Providers Care Trust Clerk Name Role Phone Bonnie BLUE, Lanette Primary Care Provider Unavail able Ramana Mcginnis Unavailable [phone] Reason For Referral No Information Plan Of Treatment No Information Insurance Providers Payer Name Payer Address Payer Phone Subscriber Number Group Number Insured Name Patient Relationship to Insured Coverage Start Date Coverage End Date [facility] [address] [place] [address] [phone] WILL CALL BACK NAVYA MEZA Self - patient is the insured
--- OUTSIDE RECORDS SUMMARY | 2025-05-30 17:31 | XMS_ITS | Encounter Summary ---
Author Organization [employer] Address [address] [facility] [address] [place] [address] Care Team Providers Care Mis Manager Name Role Phone Name, Juan M BLUE Primary Care Provider [phone] Gita Girard PharmD Unavailable [phone] Encounter Details Date Type Department Care Team (Late st Contact Info) Description 05/30/2025 Orders Only GENERIC EXTERNAL DATA DEPARTMENT Provider, Generic External Data Social History Tobacco Use Types Packs/Day Years [...] Description 06/05/2025 10:30 AM EST Office Visit [facility] OPT[facility] [address] [place] [address] Tarka, Leslie, OD [address] [place] [address] 06/23/2025 11:30 AM EST Medication Management [facility] [address] [place] [address] Gita Girard, PharmD [address] [place] [address] 08/07/2025 10:15 AM EST Office Visit [facility]ULT D[facility]AL [address] [place] [address] Cathi Saul documented as of this encounter Goals Goal Patient Goal Type Associated Problems Recent Progress Patient-Stated? Author Patient will adhere to medication regimen General No Gita Girard, PharmD Note: Take medications, including insulin, as prescribed. Hemoglobin A1c < 8 Result Component 6.6( 10:08 AM EST) No Gita Girard, PharmD Record your blood sugar as directed Result Component No Gita Girard, PharmD Note: Monitor BG via CGM ensuring sensor is scanned at least once every 8 hours. Utilize manual SMBG as needed and as directed. Help patients manage their type 2 diabetes Care Plan Help patients manage their type 2 diabetes No Puia Gita, PharmD Weekly blood pressure task Care Plan Weekly blood pressure task No Puia Gita, PharmD Help patients manage their type 2 diabetes Care Plan Help patients manage their type 2 diabetes No Puia Gita, PharmD Patient has chronic kidney disease Care Plan Patient has chronic kidney disease No Puia, Gita, PharmD Weekly blood pressure task Care Plan Weekly blood pressure task No Puia, Gita, PharmD Patient has chronic kidney disease Care Plan Patient has chronic kidney disease No Puia Gita, PharmD Weekly blood pressure task Care Plan Weekly blood pressure task No Gilmer, Quoc Weekly blood pressure task Care Plan Weekly blood pressure task No Gilmer, Quoc Patient has chronic kidney disease Care Plan Patient has chronic kidney disease No Gilmer, Quoc Patient has chronic kidney disease Care Plan Patient has chronic kidney disease No Gilmer, Quoc Weekly blood pressure task Care Plan Weekly blood pressure task No Ladd, Seema, WATER MAIN INSPECTOR Weekly blood pressure task Care Plan Weekly blood pressure task No Ladd, Seema, WATER MAIN INSPECTOR Patient has chronic kidney disease Care Plan Patient has chronic kidney disease No Ladd, Seema, WATER MAIN INSPECTOR Patient has chronic kidney disease Care Plan Patient has chronic kidney disease No Ladd, Seema, WATER MAIN INSPECTOR documented as of this encounter Procedures Procedure Name Priority Date/Time Associated Diagnosis Comments GLUCOSE, WHOLE BLOOD Routine 05/30/2025 4:33 PM EST GLUCOSE, WHOLE BLOOD Routine 05/30/2025 2:[address] HEAD WO CONTRAST Routine 05/30/2025 2 :32 PM EST URINALYSIS WITH REFLEX MICROSCOPIC Routine 05/30/2025 2:19 PM EST SARS COV2/INFLUENZA A/B AND RSV RNA QL NAAT Routine 05/30/2025 1:00 PM EST VENOUS BLOOD GAS Routine 05/30/2025 12:0 5 PM EST documented in this encounter Results * (ABNORMAL) Glucose, Whole Blood (05/30/2025 4:33 PM EST) Glucose, Whole Blood 269(H) 60 - 115 mg/dL [facility] Comment:METER #: [id number] 05/30/2025 4:33 PM EST 05/30/2025 4:45 PM EST Generic External Data Provider LAB BLOOD ORDERAB LES Final Result Performing Organization Address [facility]/ZIP Co de Phone Number [facility] [address] [place] [phone] * (ABNORMAL) Glucose, Whole Blood (05/30/2025 2:59 PM EST) Glucose, Whole Blood 343(H) 60 - 115 mg/dL [facility] Comment:METER #: [id number] 05/30/2025 2:59 PM EST 05/30/2025 3:25 PM EST Generic External Data Provider LAB BLOOD ORDERAB LES Final Result Performing Organization Address City/[facility] Co de Phone Number [facility] [address] [place] [phone] * CT Head w/o Contrast (05/30/2025 2:32 PM EST) Anatomical Region Laterality Modality Head, Neck Computed Tomogra phy 05/30/2025 2:32 PM EST Narrative 05/30/2025 2:53 PM EST [address] [address] [address] Scan Report Signed Patient: Dk Sepulveda MR#: [id number] : 1940 Acct:[id number] Age/Sex: 84 / M ADM Date: 05/30/25 Loc: HO.ED Attending Dr: Ordering Physician: Madai Bentley NP Date of Service: 05/30/25 Procedure(s): CT head/brain wo IV con Accession Number(s): [id number] cc: Name,Juan M BLUE; Madai Bentley NP Report Number: [id number]: Total DLP = 734.00 mGy-cm Reason for Exam: ams EXAMINATION: CT HEAD WITHOUT CONTRAST CLINICAL INFORMATION: Altered mental status. COMPARISON: 04/12/2023, 04/26/2019. TECHNIQUE: Contiguous axial imaging was performed from the skull base to vertex without intravenous administration of contrast. This CT examination was performed using dose optimization techniques as appropriate, variously including the following: *Automated exposure control *Adjustment of mA and/or kV according to patient size (this includes techniques or standardized protocols for targeted exams where dose is matched to indication/reason for exam; i.e. extremities or head) *Use of iterative reconstruction technique FINDINGS: There is no evidence of intracranial hemorrhage or extra-axial fluid collection. There is no mass effect, or edema. No CT evidence of acute territorial infarct. Ventricles, sulci, and cisterns are normal in size and configuration for patient age. Dennis cisterna magna. No hydrocephalus. No midline shift. Negative hyperdense MCA sign. Negative insular ribbon sign. Patchy periventricular and deep white matter hypoattenuation is consistent with moderate to severe small vessel ischemic changes. 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 Normal pituitary. Atheromatous calcification of the bilateral carotid siphons and V4 segments vertebral arteries bilaterally. Globes and orbital contents image normally. Left-sided ciliary body calcification present. Extracranial soft tissues demonstrate focal dermal thickening of the right frontal scalp, unchanged from the prior examination and nonspecific. The paranasal sinuses, mastoid air cells, and tympanic cavities are normally aerated. No suspicious bony abnormalities. There has been an old right frontoparietal craniotomy. There are no acute fractures evident. CT/CT head/brain wo IV con IMPRESSION: No acute intracranial abnormality. Stable chronic findings. Electronically signed by: Basilio Mcnamraa MD 05/30/2025 02:50 PM [facility] Dictated By: Basilio Mcnamara MD Signed By: <Electronically signed by Basilio Mcnamara MD in OV> 05/30/25 1450 DD/ 1432 TD/TT: 05/30/25 1441 Group Product Manager: Procedure Note Donotuseinterpreter, Image - 05/30/[address] [address] [address] Scan Report Signed Patient: Karlo Sepulveda#: [id number] : 2Acct:[id number] Age/Sex: 84 / MADM Date: 05/30/25 Loc: HO.ED Attending Dr: Ordering Physician: Madai Bentley NP Date of Service: 05/30/25 Procedure(s): CT head/brain wo IV con Accession Number(s): [id number] cc: Name,Juan M BLUE; Madai Bentley NP Report Number: [id number]: Total DLP = 734.00 mGy-cm Reason for Exam: ams EXAMINATION: CT HEAD WITHOUT CONTRAST CLINICAL INFORMATION: Altered mental status. COMPARISON: 04/12/2023, 04/26/2019. TECHNIQUE: Contiguous axial imaging was performed from the skull base to vertex without intravenous administration of contrast. This CT examination was performed using dose optimization techniques as appropriate, variously including the following: *Automated exposure control *Adjustment of mA and/or kV according to patient size (this includes techniques or standardized protocols for targeted exams where dose is matched to indication/reason for exam; i.e. extremities or head) *Use of iterative reconstruction technique FINDINGS: There is no evidence of intracranial hemorrhage or extra-axial fluid collection. There is no mass effect, or edema. No CT evidence of acute territorial infarct. Ventricles, sulci, and cisterns are normal in size and configuration for patient age. Dennis cisterna magna. No hydrocephalus. No midline shift. Negative hyperdense MCA sign. Negative insular ribbon sign. Patchy periventricular and deep white matter hypoattenuation is consistent with moderate to severe small vessel ischemic changes. 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 Normal pituitary. Atheromatous calcification of the bilateral carotid siphons and V4 segments vertebral arteries bilaterally. Globes and orbital contents image normally. Left-sided ciliary body calcification present. Extracranial soft tissues demonstrate focal dermal thickening of the right frontal scalp, unchanged from the prior examination and nonspecific. The paranasal sinuses, mastoid air cells, and tympanic cavities are normally aerated. No suspicious bony abnormalities. There has been an old right frontoparietal craniotomy. There are no acute fractures evident. CT/CT head/brain wo IV con IMPRESSION: No acute intracranial abnormality. Stable chronic findings. Electronically signed by: Basilio Mcnamara MD 05/30/2025 02:50 PM EST Dictated By: Basilio Mcnamara MD Signed By: <Electronically signed by Basilio Mcnamara MD in OV> 05/30/25 1450 DD/ 1432 TD/TT: 05/30/25 1441 Group Product Manager: [facility] External Provider IMG CT PROCEDURES Final Result * (ABNORMAL) Urinalysis w/reflex microscopic (05/30/2025 2:19 PM EST) Color Urine Yellow [facility] Appearance Urine Clear [facility] PH 6.0 5.0 - 9.0 [facility] Glucose Urine UA 250(A) Negative mg/dL [facility] Urine Blood Negative Negative [facility] Specific [place] - Urine 1.015 1.005 - 1.025 [facility] Urine Protein Trace Neg-Trace mg/dL [facility] Urine Ketones Negative Negative mg/dL [facility] Nitrite Urine Negative Negative [facility] Leukocyte Esterase Urine Negative Negative [facility] 05/30/2025 2:19 PM EST 05/30/2025 2:25 PM EST Narrative [facility] - 05/30/2025 2:32 PM EST Urine, Catheterized Generic External Data Provider LAB URINE ORDERAB LES Final Result [facility] [address] [place] [phone] * SARS-CoV-2 RNA, Influenza A/B, and RSV RNA, Ql NAAT (05/30/2025 1:00 PM EST) Influenza A PCR NEGATIVE Negative [facility] Influenza B PCR NEGATIVE Negative [facility] Resp Syncy Virus RNA Qual PCR NEGATIVE Negative [facility] SARS COV2 PCR NEGATIVE Negative [facility] Comment:All test results mus t be correlated with clinical findings.Negative results do not preclude SARS-CoV2, influenza Avirus, influenza B virus and/or RSV infectionand should not be used as the sole basis for treatment orother patient management decisions. Negative results must becombined with clinical observations, patient history, andepidemiological information.This test has not been evaluated for monitoring treatment ofinfection.This test has been authorized by the FDA under an EmergencyUse Authorization (EUA) for use by authorized laboratories.Testing performed on the [employer] GeneXpert utilizingreal-time RT-PCR.All SARS CoV2 and positive influenza A/B results arereported to [facility]. 05/30/2025 1:00 PM EST 05/30/2025 1:04 PM EST us Generic External Data Provider LAB MICROBIOLOGY - GENERAL ORDERABLES Final Result [facility] [address] [place] [phone] * (ABNORMAL) VENOUS BLOOD GAS (05/30/2025 12:05 PM EST) VBG pH 7.44(H) 7.32 - 7.43 [facility] Comment:METER #: [id number] additional_comment: Cb springl VBG PCO2 47 mmHg [facility] Comment:METER #: [id number] additional_comment: Cb springl VBG PO2 63 mmHg [facility] Comment:METER #: [id number] additional_comment: Cb springl VBG Base Excess 8.2 mmol/L [facility] Comment:METER #: [id number] additional_comment: Nabor lozanol VBG HCO3 33(H) 22 - 26 mmol/L [facility] Comment:METER #: [id number] additional_comment: Cb blakel O2 Sat, Armond 88.0 % [facility] Comment:METER #: [id number] additional_comment: Cb blakel 05/30/2025 12:0 5 PM EST 05/30/2025 12:16 PM EST us Generic External Data Provider LAB BLOOD ORDERAB LES Final Result Performing Organization Address City/State/[facility] Co de Phone Number [facility] [address] [place] [address] [phone] documented in this encounter Visit Diagnoses Not on filedocumented in this encounter Additional Health Concerns Active Problems Noted Date Diagnosed Date Help patients manage their type 2 diabetes 04/30 Weekly blood pressure task 04/30/2025 Help patients manage their type 2 diabetes 04/30 Patient has chronic kidney disease 04/30/2025 Weekly blood pressure task 04/30/2025 Patient has chronic kidney disease 04/30/2025 Weekly blood pressure task 05/01/2025 Weekly blood pressure task 05/01/2025 Patient has chronic kidney disease 05/01/2025 Patient has chronic kidney disease 05/01/2025 Weekly blood pressure task 05/01/2025 Weekly blood pressure task 05/01/2025 Patient has chronic kidney disease 05/01/2025 Patient has chronic kidney disease 05/01/2025 Assessment Noted Time PHQ-9 Depression Total Score: 0 12/28/19 25 11:27 AM EDT documented as of this encounter Care Teams Mis Manager Relationship Specialty Start Date End Date Name, MD Juan M [address] [place] [address] PCP - General Family Medicine 01/21/19 Gita Girard PharmD [address] [place] [address] Pharmacist Internal Medicine 07/14/22 [employer] 10/28/24 documented as of this encounter
--- OUTSIDE RECORDS SUMMARY | 2025-05-30 17:31 | XMS_ITS | Encounter Summary ---
Author Organization [employer] Address [address] [place] [phone] Phone Care Team Providers Care Patient Liaison Name Role Phone Anthony Ramirez MD Primary Care Provider Unav ailable Encounter Details Date Type Department Care Team (Late st Contact Info) Description 09/19/2016 Office Visit [facility] [address] [place], [place] [phone] Provider, MD Cindy [address] [place] [phone] Social History Tobacco Use Types Packs/Day [...] on filedocumented in this encounter Care Teams Patient Liaison Relationship Specialty Start Date End Date Anthony Ramirez MD PCP - General 07/06/16 documented as of this encounter
--- OUTSIDE RECORDS SUMMARY | 2025-05-30 17:31 | XMS_ITS | Encounter Summary ---
Author Organization [email or web address] Address [address] [facility] [address] [place] [address] Care Team Providers Care Industrial Design Engineer Name Role Phone Name, Juan M BLUE Primary Care Provider [phone] Gita Girard PharmD Unavailable [phone] Reason for Visit * Reason Onset Date Comments rs cancelled same day appt 12/09/2024 Encounter Details Date Type Department Care Team (Late st Contact Info) Description 12/09/2024 Telephone [facility] ADULT D[facility] [address] [place] [address] Cathi Saul rs cancelled same day appt [...] Description 06/05/2025 10:30 AM EST Office Visit [facility] OPTOMETRY [address] [place] [address] Leslie Urrutia, OD [address] [place] [address] 06/23/2025 11:30 AM EST Medication Management [facility] [address] [place] [address] Gita Girard, PharmD [address] [place] [address] 08/07/2025 10:15 AM EST Office Visit [facility] [address] [place] [address] Cathi Saul documented as of this encounter Goals Goal Patient Goal Type Associated Problems Recent Progress Patient-Stated? Author Patient will adhere to medication regimen General No Gita Girard, Kita Note: Take medications, including insulin, as prescribed. Hemoglobin A1c < 8 Result Component 6.6( 10:08 AM EST) No Gita Girard, Kita Record your blood [...] documented as of this encounter Care Teams Industrial Design Engineer Relationship Specialty Start Date End Date Name, MD Juan M [address] [place] [address] PCP - General Family Medicine 01/21/19 Gita Girard PharmD [address] [place] [address] Pharmacist Internal Medicine 07/14/22 [employer] 10/28/24 documented as of this encounter
--- OUTSIDE RECORDS SUMMARY | 2025-05-30 17:31 | XMS_ITS | Encounter Summary ---
Author Organization [employer] Address [address] [place] [phone] Phone Care Team Providers Care Hedis Manager Name Role Phone Anthony Ramirez MD Primary Care Provider Unav ailable Encounter Details Date Type Department Care Team (Late st Contact Info) Description 08/08/2016 Office Visit [facility] [address] [place], [place] [phone] Provider, MD Cindy [address] [place] [phone] Social History Tobacco Use Types Packs/Day [...] on filedocumented in this encounter Care Teams Hedis Manager Relationship Specialty Start Date End Date Anthony Ramirez MD PCP - General 07/06/16 documented as of this encounter
--- OUTSIDE RECORDS SUMMARY | 2025-05-30 17:31 | XMS_ITS | Clinical Summary ---
Author Organization [employer] Address [address] [place] [address] 7[address] [place] [address] Care Team Providers Care Shank Inspector Name Role Phone Name, Juan M BLUE Primary Care Provider [phone] Gita Girard PharmD Unavailable [phone] Allergies Active Allergy Reactions Criticality Noted Date Comments Ibuprofen 06/26/2024 Other Reaction(s): Not available Nsaids 09/02/2022 Other reaction(s): n/a DUE TO CKD Other Nausea 01/06/2024 Medications calcitriol (Rocaltrol) 0.25 MCG capsule TAKE 1 CAPSULE (0.25 MCG TOTAL) BY MOUTH EVERY OTHER DAY Active Eliquis 2.5 MG tablet Take 1 tablet by mouth 2 times daily. 022 Active lidocaine (Lidoderm) 5 % patchIndications :Right-sided low back pain without sciatica, unspecified chronicity APPLY 1 PATCH TOPICALLY TO SKIN IN THE MORNING. LEAVE ON FOR 12 HOURS AND OFF FOR 12 HOURS DIRECTED 30 patch 2 024 Active glucagon (Baqsimi Two Pack) 3 MG/DOSE nasal powderIndication s:Diabetes mellitus type 2 with complications (HCC) Administer 3 mg via 1 device into the nostril for hypoglycemia with loss of consciousness. If no response after 15 minutes administer an additional dose via 2nd device into other nostril. 2 each 1 024 Active Pentips Generic Pen [place] 32G X 4 MM miscIndications: Diabetes mellitus type 2 with complications (HCC) USE DIRECTED FOUR TIMES DAILY 100 each 11 024 Active Alcohol Swabs (Alcohol Prep) 70 % padsIndications: Diabetes mellitus type 2 with complications (HCC) USE FOUR TIMES DAILY 100 each 05/01/20 11:39 AM EST 025 Active TRUEplus Lancets 33G miscIndications: Type 2 diabetes mellitus with unspecified complications (HCC) TEST BLOOD SUGAR FOUR TIMES DAILY DIRECTED 100 each 05/01/20 11:39 AM EST 025 Active Continuous Glucose Flow Machine Operator (FreeStyle Elizabeth 3 Gazelle) deviceIndication s:Diabetes mellitus type 2 with complications (HCC) 1 each Once per day. Use as directed for CGM 1 each Active Continuous Glucose Sensor (FreeStyle Elizabeth 3 Plus Sensor) miscIndications: Diabetes mellitus type 2 with complications (HCC) Apply 1 every 15 days as directed for CGM 2 each 05/01/20 11:39 AM EST Active glucose blood (FreeStyle Precision David Test) test stripIndications :Diabetes mellitus type 2 with complications (HCC) Use to test blood sugar up to 4 times daily, as directed 100 each 05/01/20 11:39 AM EST 025 Active insulin aspart (NovoLOG FLEXPEN) 100 UNIT/ML penIndications:D iabetes mellitus type 2 with complications (HCC) Inject 0 to 10 units subQ with meals per sliding scale: BG < 150 = 0 units, BG 151-200 = 2 units, 201-250 = 4 units, 251-300 = 6 units, 301-350 = 8 units, >351 = 10 units 15 mL 05/01/20 11:39 AM EST 025 Active insulin degludec (Tresiba FlexTouch) 100 UNIT/ML injectionIndicat ions:Diabetes mellitus type 2 with complications (HCC) Inject 10 Units under the skin at bedtime. 15 mL 5 025 Active fluticasone (Flonase) 50 MCG/ACT nasal spray Administer 2 sprays into each nostril Once per day. 025 Active rosuvastatin (Crestor) 10 MG tabletIndication s:Hypertension, unspecified type,Chronic cough,Diabetes mellitus type 2 with complications (HCC),Right-side d low back pain without sciatica, unspecified chronicity,Insom andrew, unspecified type TAKE 1 TABLET BY MOUTH EVERY EVENING 90 tablet 1 05/06/20 25 10:53 AM EST 025 Active traMADol (Ultram) 50 MG tabletIndication [...] WITH FOOD 180 tablet 1 025 Active Acetaminophen Extra Strength [...] MORNING WITH FOOD 90 capsule 025 Active ferrous sulfate 325 (65 Fe) MG EC tablet Take 1 tablet (325 mg) by mouth every other day. 15 tablet 11 025 2025 Active docusate sodium (Colace) 100 MG capsule Take 1 tab po bid prn constipation 60 capsule 3 025 Active torsemide (Demadex) 20 MG tablet TAKE 4 TABLETS BY MOUTH EVERY MORNING 120 tablet 1 05/06/20 25 10:53 AM EST 025 Active spironolactone (Aldactone) 25 MG tablet TAKE 1/2 TABLET BY MOUTH EVERY MORNING 15 tablet 1 05/01/20 25 11:39 AM EST 025 Active glucose 4 g chewable tabletIndication s:Diabetes mellitus type 2 with complications (HCC) Chew 4 tablets (16 g) if needed for low blood sugar. (BG < 70 mg/dL). Check BG again after 15 minutes and repeat dose if needed. 20 tablet 5 05/06/20 25 10:53 AM EST 025 2025 Active glucose 4 g chewable tabletIndication s:Diabetes mellitus type 2 with complications (HCC) Chew 4 tablets (16 g) if needed for low blood sugar. (BG < 70 mg/dL). Check BG again after 15 minutes and repeat dose if needed. 20 tablet 5 024 2024 Discontinued(R eorder (will not trigger notification to Pharmacy)) Active Problems Problem Noted Date Diagnosed Date [...] agreeable with this -will call report to [facility] Acute worsening of stage 3 chronic kidney diseas e ([facility]/HCC) 02/06/2024 Chronic right heart failure 02/06/2024 CKD [...] with PCP to reassess whether patient needs RISK CONTROL OFFICER, episodic short-term supply, and/or refer to pain [...] Varicocele 04/24/2013 Anemia 04/20/2012 Persistent atrial fibrillation ([facility]/HCC) 012 Benign prostatic hyperplasia 04/20/2012 Biliary calculus 04/20/2012 Stage 3b chronic kidney disease ([facility]) 2011 Chronic neck pain 04/20/2012 Essential hypertension [...] Encounters Date Type Department Care Team Description 05/30/2025 Orders Only GENERIC EXTERNAL DATA DEPARTMENT Provider, Generic External Data 05/01/2025 Refill [facility] [address] [place] [address] Juan M Rogers MD Diabetes mellitus type 2 with complications (HCC) 05/01/2025 Telephone [facility] [address], [place] [phone] Juan M Rogers MD Med Refill 04/30/2025 Telephone [facility] [address] [place] [phone] Gita Girard, PharmD 04/29/[address] [address] Juan M Rogers MD Medication Question 04/28/2025 Telephone [facility] [address] [place] [phone] Juan M Rogers MD Nurse Triage 04/24/2025 Refill [facility] [address] [place] [phone] Juan M Rogers MD 04/22/2025 10:00 AM EST Office Visit [facility] [address] [place] [phone] Juan M Rogers MD Type 2 diabetes mellitus with hyperglycemia, with long-term current use of insulin (HCC) (Primary Dx); Anemia, unspecified type; Vaccine refused by patient 04/22/2025 Travel 04/21/2025 Telephone [facility] [address] [place] [phone] Santosh Alexis MA chart prep 04/15/2025 Patient Outreach [facility] [address] [place] [address] Juan M Rogers MD Pre-visit Planning (SDOH was already completed ) 04/01/2025 Refill [facility] [address] [place] [address] Juan M Rogers MD Chronic cough; Hypertension, unspecified type; Diabetes mellitus type 2 with complications (HCC); Right-sided low back pain without sciatica, unspecified chronicity; Insomnia, unspecified type 03/11/2025 Refill [facility] [address] [place] [address] Name, MD Juan M 03/10/2025 Orders Only [facility] External Provider, [facility] from Last 3 Months Immunizations Immunization Administration [...] Sign Reading Time Taken Comments Blood Pressure 130/62 04/22/2025 9:59 AM EST Pulse 83 04/22/2025 9:59 AM EST Temperature 36.7 C (98 F) 04/22/2025 9:59 AM EST Respiratory Rate 21 04/22/2025 9:59 AM EST Oxygen Saturation 99% 04/22/2025 9:59 AM EST Inhaled Oxygen Concentration - - Weight 76 kg (167 lb 9.6 oz) 04/22/2025 9:59 AM EST Height 170.2 cm (5' 7 ) 04/22/2025 9:59 AM EST Body Mass Index 26.25 04/22/2025 9:59 AM EST Plan of Treatment Upcoming Encounters Date Type Department Care Team (Late st Contact Info) Description 06/05/2025 10:30 AM EST Office Visit [facility] [address] [place] [address] Leslie Urrutia, EUNICE [address] [place] [address] 06/23/2025 11:30 AM EST Medication Management [facility] [address] [place], [place] [phone] Gita Girard, PharmD [address] [place], [place] [phone] 08/07/2025 10:15 AM EST Office Visit [facility] [address] [place], [place] [phone] Cathi Saul Health Maintenance Due Date Last Done Comments Hepatitis A Vaccines (1 of 2 - Risk 2-dose series) 1960 Hepatitis B Vaccines (1 of 3 - Risk 3-dose series) 2001 Zoster Vaccines (3 of 3) 10/27/2022 09/01/2022, 07/20 Lipid Panel 09/17/2023 09/16/2022, 02/10/2020 Dental Oral Exam 10/30/2024 05/01/2024, , 01/22/2016, Additional history exists COVID-19 Vaccine ( season) 2025 04/28/2021, 09/04/2020, 08/07/2020 Influenza Vaccine (#1) 2025 , 04/12/2023, 03/07/2022, Additional history exists Dental X-Ray: Bitewings 04/06/2025 04/05/2024, 12/12 Dental Prophylaxis 06/12/2025 12/10/2024, 1 07/01/2023, 01/22/2016, Additional history exists Diabetes: Foot Exam 09/04/2025 09/04/2024, 09/04/2024, 09/04/2024, Additional history exists SDOH Screening 09/04/2025 09/04/2024 Diabetes: Hemoglobin A1C 10/20/2025 11/2 025, 12/12/2024, 09/04/2024, Additional history exists Alcohol/Substance Use Screening 12/27/2025 12/27/2024 Depression Screening 12/27/2025 12/27/2024, 12/28/19 25 Tobacco Screening 01/30/2026 01/30/2025 Eye Exam 02/28/2026 02/29/2024, 02/17, 02/29/2024, Additional history exists Diabetes: Urine Protein Screening 04/21/2026 04/21/2025, 04/18/2022, 04/18/2022, Additional history exists Dental X-Ray: Full Mouth [...] 6.6( 5 10:08 AM EST) No Gita Girard, PharmBarrie Record your blood sugar as directed Result Component No Gita Girard PharmD Note: Monitor BG via CGM ensuring sensor is scanned at least once every 8 hours. Utilize manual SMBG as needed and as directed. Help patients manage their type 2 diabetes Care Plan Help patients manage their type 2 diabetes No PuGita pederson, PharmD Weekly blood pressure task Care Plan Weekly blood pressure task No Puia, Gita, PharmD Help patients manage their type 2 diabetes Care Plan Help patients manage their type 2 diabetes No Puia, Gita, PharmD Patient has chronic kidney disease Care Plan Patient has chronic kidney disease No Puia, Gita, PharmD Weekly blood pressure task Care Plan Weekly blood pressure task No Puia Gita, PharmD Patient has chronic [...] Weekly blood pressure task No Ladd, Seema, BAND LOG MILL AND CARRIAGE OPERATOR Weekly blood pressure task Care Plan Weekly blood pressure task No Ladd, Seema, BAND LOG MILL AND CARRIAGE OPERATOR Patient has chronic kidney disease Care Plan Patient has chronic kidney disease No Ladd, Seema, BAND LOG MILL AND CARRIAGE OPERATOR Patient has chronic kidney disease Care Plan Patient has chronic kidney disease No Ladd, Seema, BAND LOG MILL AND CARRIAGE OPERATOR Procedures Procedure Name Priority Date/Time Associated Diagnosis [...] GAS Routine 05/30/2025 12:0 5 PM EST POCT GLYCATED HEMOGLOBIN, TOTAL Routine 04/22/2025 10:08 AM EST Type 2 diabetes mellitus with hyperglycemia, with long-term current use of insulin (HCC) POCT GLUCOSE Routine 04/22/2025 10:05 AM EST Type 2 diabetes mellitus with hyperglycemia, with long-term current use of insulin (HCC) CT CHEST WO CONTRAST Routine 03/10/2025 10:12 AM EDT PROPHYLAXIS - ADULT Routine 12/10/2024 [...] Relevant to Health Maintenance Results * (ABNORMAL) Glucose, Whole Blood (05/30/2025 4:33 PM EST) Only the most recent of2 resultswithin the time period is included. Glucose, Whole Blood 269(H) 60 - 115 mg/dL [facility] Comment:METER #: [id number] 05/30/2025 4:33 PM EST 05/30/2025 4:45 PM EST us Generic External Data Provider LAB BLOOD ORDERAB LES Final Result [facility] [address] [place] [phone] * CT Head w/o Contrast (05/30/2025 2:32 PM EST) Anatomical Region Laterality Modality Head, Neck Computed Tomogra phy 05/30/2025 2:32 PM EST Narrative 05/30/2025 2:53 PM EST [address] [address] [address] Scan Report Signed Patient: Dk Sepulveda MR#: [id number] : 1940 Acct:[id number] Age/Sex: 84 / M ADM Date: 05/30/25 Loc: HO.ED Attending Dr: Ordering Physician: Madai Bentley NP Date of Service: 05/30/25 Procedure(s): CT head/brain wo IV con Accession Number(s): [id number] cc: Name,Juan M BLUE; Madai Bentley NP Report Number: [id number]: Total DLP = 734.00 mGy-cm Reason for [...] by: Basilio Mcnamara MD 05/30/2025 02:50 PM [facility] Dictated By: Basilio Mcnamara MD Signed By: <Electronically signed by Basilio Mcnamara MD in OV> 05/30/25 1450 DD/ 1432 TD/TT: 05/30/25 1441 Engagement Lead: Procedure Note Donotuseinterpreter, Image - 05/30/[address] [place] [address] [address] Scan Report Signed Patient: Karlo Sepulveda#: [id number] : 1940cct:[id number] Age/Sex: 84 / MADM Date: 05/30/25 Loc: HO.ED Attending Dr: Ordering Physician: Madai Bentley NP Date of Service: 05/30/25 Procedure(s): CT head/brain wo IV con Accession Number(s): [id number] cc: Name,Juan M BLUE; Madai Bentley NP Report Number: [id number]: Total DLP = 734.00 mGy-cm Reason for [...] 05/30/25 1450 DD/ 1432 TD/TT: 05/30/25 1441 Engagement Lead: [facility] External Provider IMG CT PROCEDURES Final Result * (ABNORMAL) Urinalysis w/reflex microscopic (05/30/2025 2:19 PM EST) Color Urine Yellow [facility] Appearance Urine Clear [facility] PH 6.0 5.0 - 9.0 [facility] Glucose Urine UA 250(A) Negative mg/dL [facility] Urine Blood Negative Negative [facility] Specific Reynolds - Urine 1.015 1.005 - 1.025 [facility] Urine Protein Trace Neg-Trace mg/dL [facility] Urine Ketones Negative Negative mg/dL [facility] Nitrite Urine Negative Negative [facility] Leukocyte Esterase Urine Negative Negative [facility] 05/30/2025 2:19 PM EST 05/30/2025 2:25 PM EST Narrative [facility] - 05/30/2025 2:32 PM EST Urine, Catheterized Generic External Data Provider LAB URINE ORDERAB LES Final Result Performing Organization Address [facility] Co de Phone Number [facility] [address] [place] [phone] * SARS-CoV-2 RNA, Influenza A/B, and RSV RNA, Ql NAAT (05/30/2025 1:00 PM EST) Influenza A PCR NEGATIVE Negative [facility] Influenza B PCR NEGATIVE Negative [facility] Resp Syncy Virus RNA Qual PCR NEGATIVE Negative [facility] SARS COV2 PCR NEGATIVE Negative [facility] Comment:All test results mus t be [...] use by authorized laboratories.Testing performed on the [employer] GeneXpert utilizingreal-time RT-PCR.All SARS CoV2 and positive influenza A/B results arereported to [facility]. 05/30/2025 1:00 PM EST 05/30/2025 1:04 PM EST Generic External Data Provider LAB MICROBIOLOGY - GENERAL ORDERABLES Final Result Performing Organization Address [facility] Co de Phone Number [facility] [address] [place] [phone] * (ABNORMAL) VENOUS BLOOD GAS (05/30/2025 12:05 PM EST) VBG pH 7.44(H) 7.32 - 7.43 [facility] Comment:METER #: [id number] additional_comment: Cb springl VBG PCO2 47 mmHg [facility] Comment:METER #: [id number] additional_comment: Cb springl VBG PO2 63 mmHg [facility] Comment:METER #: [id number] additional_comment: Cb springl VBG Base Excess 8.2 mmol/L [facility] Comment:METER #: [id number] additional_comment: Cb springl VBG HCO3 33(H) 22 - 26 mmol/L [facility] Comment:METER #: [id number] additional_comment: Cb springl O2 Sat, Armond 88.0 % [facility] Comment:METER #: [id number] additional_comment: Cb springl 05/30/2025 12:0 5 PM EST 05/30/2025 12:16 PM EST Generic External Data Provider LAB BLOOD ORDERAB LES Final Result Performing Organization Address City/State/[facility] Co de Phone Number [facility] [address] [place] [phone] * (ABNORMAL) POCT Hgb A1c (04/22/2025 10:08 AM EST) Hemoglobin A1C 6.6(A) 4.0 - 5.7 % QC Media Lot # [id number] Lot# Expiration Date 51227 Blood 04/22/2025 10:0 8 AM EST us Juan M Rogers MD POINT OF CARE TEST ENTER/EDIT OR DERABLES Final Result * (ABNORMAL) POCT Glucose (04/22/2025 10:05 AM EST) Glucose Blood, POC 238(A) 60 - 200 mg/dL QC Media Lot # [id number] Lot# Expiration Date 31,126 Blood Capillary blood specimen / Unknown 04/22/2025 10:05 AM EST us Juan M Rogers MD POINT OF CARE TEST ENTER/EDIT OR DERABLES Final Result * CT Chest w/o Contrast (03/10/2025 10:12 AM EDT) Anatomical Region Laterality Modality Body, Chest Computed Tomogra phy 03/10/2025 10:1 2 AM EDT Narrative 03/10/2025 11:45 AM EDT [place] [address] CT Scan Report Signed Patient: Dk Sepulveda MR#: [id number] : 1940 Acct:[id number] Age/Sex: 84 / M ADM Date: 03/10/25 Loc: HO.CT Attending Dr: Dandre Squires MD Ordering Physician: Dandre Squires MD Date of Service: 03/10/25 Procedure(s): CT chest wo IV con Accession Number(s): [id number] cc: [facility]; Dandre Squires MD Report Number: [id number]: Total DLP = 134.00 mGy-cm Reason for [...] 03/10/25 1142 DD/ 1012 TD/TT: 03/10/25 1127 Engagement Lead: Procedure Note Donotuseinterpreter, Image - 03/10/[address] [address] [address] Scan Report Signed Patient: Karlo Sepulveda#: [id number] : 1940cct:[id number] Age/Sex: 84 / MADM Date: 03/10/25 Loc: HO.CT Attending Dr: Dandre Squires MD Ordering Physician: Dandre Squires MD Date of Service: 03/10/25 Procedure(s): CT chest wo IV con Accession Number(s): [id number] cc: [facility]; Dandre Squires MD Report Number: [id number]: Total DLP = 134.00 mGy-cm Reason for [...] 03/10/25 1142 DD/ 1012 TD/TT: 03/10/25 1127 Engagement Lead: [facility] External Provider IMG CT PROCEDURES Final Result * Lipid Panel, Standard (09/16/2022 9:26 AM EDT) Triglycerides 134 mg/dL [facility] Comment:Desirable Triglyceri de: less than 150 mg/dLBorderline High Triglyceride 150-199 mg/dLHigh Triglyceride: 200-499 mg/dLVery High Triglyceride: greater than or equal to 5OO mg/dL Cholesterol 114 mg/dL [facility] Comment:Desirable Cholestero l: less than 200 mg/dLBorderline High Cholesterol: 200-239 mg/dLHigh Cholesterol: greater than 239 mg/dL LDL Cholesterol Calculated 59 mg/dl [facility] Comment:Desirable LDL: less than 100 mg/dLNear Optimal/Above Optimal LDL: 110- 129 mg/dLBorderline High LDL: 130-159 mg/dLHigh LDL: 160-189 mg/dLVery High LDL: greater than or equal to 190 mg/dL HDL Cholesterol 29 mg/dL [facility] Comment:Desirable HDL: great er than 40 mg/dL Note: This HDL assay may give artificially low results in patients with liver disease. 09/16/2022 9:26 AM EDT 09/16/2022 9:26 AM EDT [facility] External Provider LAB BLO OD ORDERABLES Final Result [facility] [address] [place] [phone] * (ABNORMAL) MICROALBUMIN/CREATININE RATIO, RANDOM URINE [...] ORDERABLE LABS Final Result Performing Organization Address City/[facility] Co de Phone Number [facility] from Last 3 Months or Most Recently Relevant to Health Maintenance Additional Health Concerns Active Problems Noted Date [...] 05/01/2025 Patient has chronic kidney disease 05/01/20[place] [id number] [place] [id number] Advance Directives Documents on File Type Date Recorded Patient Ops Analyst Expl anation HealthCare Proxy 06/28/2023 HEALTHCARE PROXY 06/13/23 Care Teams Shank Inspector Relationship Specialty Start Date End Date Name, MD Juan M [address] [place] [address] PCP - General Family Medicine 01/21/19 Gita Girard PharmD [address] [place] [address] Pharmacist Internal Medicine 07/14/22 [employer] 10/28/24
--- OUTSIDE RECORDS SUMMARY | 2025-05-30 17:32 | XMS_ITS | Encounter Summary ---
Author Organization [employer] Address [address] [facility] [address] [place] [address] Care Team Providers Care Lace Roller Operator Name Role Phone Name, Juan M BLUE Primary Care Provider [phone] Gita Girard PharmD Unavailable [phone] Reason for Visit * Reason Comments Med Refill Encounter Details Date Type Department Care Team (Late st Contact Info) Description 07/17/2022 Refill [facility] [address] [place], [place] [phone] Name, MD Juan M [address] [place] [address] Social History Tobacco Use Types Packs/Day Years [...] things Not at all 07/20/2022 10:18 AM EST Nerissa Valero [place] Feeling down, depressed, or hopeless Not at all 07/20/2022 10:18 AM EST Nerissa Valero MA Patient Health Questionnaire -2 Score 0 07/20/2022 10:18 AM EST Nerissa Valero MA documented as of this encounter Plan of Treatment Upcoming Encounters Date Type Department Care Team (Late st Contact Info) Description 06/05/2025 10:30 AM EST Office Visit [facility] [address] [place] [address] TarLeslie helm, OD [address] [place] [address] 06/23/2025 11:30 AM EST Medication Management [facility] [address] [place] [address] Gita Girard, PharmD [address] [place] [address] 08/07/2025 10:15 AM EST Office Visit [facility] [address] [place] [address] Cathi Saul documented as of this encounter Goals Goal Patient Goal Type Associated Problems Recent Progress Patient-Stated? Author Patient will adhere to medication regimen General No PuiaBensonGita, PharmD Note: Take medications, including insulin, as prescribed. Hemoglobin A1c < 8 Result Component 6.6( 10:08 AM EST) No Puia Gita, PharmD Record your blood sugar as directed Result Component No Puia Gita, PharmD Note: Monitor BG via CGM ensuring sensor is scanned at least once every 8 hours. Utilize manual SMBG as needed and as directed. documented as of this encounter Visit Diagnoses Not on filedocumented in this encounter Additional Health Concerns Assessment Noted Time PHQ-9 Depression Total Score: 0 06/08/20 9:37 AM EST documented as of this encounter Care Teams Lace Roller Operator Relationship Specialty Start Date End Date Name, MD Juan M [address] [place] [address] PCP - General Family Medicine 01/21/19 Gita Girard, Kita [address] [place] [address] Pharmacist Internal Medicine 07/14/22 [employer] 10/28/24 documented as of this encounter
--- OUTSIDE RECORDS SUMMARY | 2025-05-30 17:32 | XMS_ITS | Encounter Summary ---
Author Organization [facility] Address [address] [place] [phone] Phone Care Team Providers Care Quill Cleaner Name Role Phone Anthony Ramirez MD Primary Care Provider Unav ailable Encounter Details Date Type Department Care Team (Late st Contact Info) Description 10/24/2017 Office Visit [facility] [address] [place], [place] [phone] Provider, MD Cindy [address] [place] [phone] Social History Tobacco Use Types Packs/Day [...] on filedocumented in this encounter Care Teams Quill Cleaner Relationship Specialty Start Date End Date Anthony Ramirez MD PCP - General 07/06/16 documented as of this encounter
--- OUTSIDE RECORDS SUMMARY | 2025-05-30 17:32 | XMS_ITS | Clinical Summary ---
Author Organization [facility] Address [address] [place] [address] [place] [address] Phone Care Team Providers Care Knife Edger Name Role Phone Name, Juan M BLUE Primary Care Provider [phone] Allergies Active Allergy Reactions Criticality Noted Date Comments Ibuprofen 06/26/2024 Other Reaction(s): Not available Nsaids 09/21/2022 DUE TO CKD Medications apixaban [...] disorder due to type 2 diabetes mellitus <Unspecified DM Medication; Diabetic nephropathy> (HCC) Take 1 tablet by mouth [...] (one) time each day 90 tablet 3 3 Active torsemide (DEMADEX) 20 MG tabletIndicatio ns:Chronic kidney disease, stage 4 (severe) (HCC),Hypertens liborio chronic kidney disease, unspecified, with chronic kidney disease stage I through stage IV, or unspecified Take 3 tablets (60 mg total) by mouth 1 (one) time each day 270 tablet 1 3 Active Additional Information Patient taking differently: 80 mgOral Daily, Reported on 04/28/2025 ergocalciferol 1.25 MG (24814 UT) capsule TAKE 1 CAPSULE BY MOUTH EVERY 14 DAYS 4 capsule 1 3 Active Easy Touch Lancets 33G/Twist misc 3 Active gabapentin (NEURONTIN) 100 MG capsuleIndicati ons:Renal osteodystrophy, Hypertensive chronic kidney disease, unspecified, with chronic kidney disease stage I through stage IV, or unspecified,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 <Unspecified DM Medication; Diabetic nephropathy> (HCC) Take 1 capsule (100 mg [...] THE MORNING 45 capsule 2 5 Active metOLazone 2.5 MG tabletIndicatio ns:Chronic kidney disease, stage 4 (severe) (HCC),Hypertens liborio chronic kidney disease, unspecified, with chronic kidney disease stage I through stage IV, or unspecified Take 1 tablet (2.5 mg total) by mouth 3 times weekly: Mon and Monday morning 36 tablet 2 5 Active Active Problems Problem Noted [...] Constipation 05/26/2022 04/24/2023 Chronic gout without tophus 05/26/202211/2022 Pericardial effusion 05/26/2022 04/24/2023 Normally functioning cardiac [...] Encounters Date Type Department Care Team Description 04/28/2025 1:45 PM EST [facility] [address] [place] [address] [place] [phone] Arpit Bundy MD Stage 3b chronic kidney disease (HCC) (Primary Dx); Renal osteodystrophy; Essential hypertension; Chronic kidney disease, stage 4 (severe) (HCC); Hypertensive chronic kidney disease, unspecified, with chronic kidney disease stage I through stage IV, or unspecified; Anemia in chronic kidney disease 04/21/2025 Orders Only [facility] [address] [place] [address] [address] [place] [address] Arpit Bundy MD from Last 3 Months Immunizations Immunization Administration Dates Next Due Influenza (IM) Preservative Free 09/04/2024 Influenza Split 02/23/2015 Influenza TIV (IM) 11/30/2015 [...] Sign Reading Time Taken Comments Blood Pressure 138/60 04/28/2025 2:01 PM EST Pulse 86 04/28/2025 2:01 PM EST Temperature - - Respiratory Rate - - Oxygen Saturation 99% 04/28/2025 2:01 PM EST Inhaled Oxygen Concentration - - Weight 76.3 kg (168 lb 3.2 oz) 04/28/2025 2:01 P M EST Height 170.2 cm (5' 7 ) 01/14/2019 12:00 PM EDT Body Mass Index 26.34 01/14/2019 12:00 PM EDT Plan of Treatment Upcoming Encounters Date Type Department Care Team (Late st Contact Info) Description 10/27/2025 1:30 PM EDT Office [facility] [address] [place] [address] Arpit Bundy MD [address] [facility] [address] [place] [phone] Health Maintenance Due Date Last Done Comments Hepatitis B Vaccine (1 of 3 - Risk 3-dose series) 2001 Diabetes: Ophthalmology Exam 07/20/2020 Diabetes: Pedal Pulse Checked 07/20/2020 Diabetes: Sensory Foot Exam 07/20/2020 Diabetes: Visual Foot Exam 07/20/2020 Influenza Vaccine (#1) 2025 5, 04/12/2023, 03/07/2022, Additional history exists Diabetes: Hemoglobin A1C 07/23/2025 025, 12/12/2024, 09/04/2024, Additional history exists Pneumococcal Vaccine: 50+ Years Completed 08/12/2021, 03/23/2015, 07/29/2014, Additional history exists Pneumococcal Vaccine: Peds ( 0 to 5 Years) and At-Risk Patients (6 to 49 Years) Discontinued 08/12/2021, 03/23/2015, 07/29/2014, Additional history exists Procedures Procedure Name Priority Date/Time Associated Diagnosis Comments PROTEIN / CREATININE RATIO, URINE Routine 04/21/2025 12:05 PM EST ALBUMIN, URINE, RANDOM Routine 04/21/2025 12:05 PM EST URINALYSIS WITH MICROSCOPIC Routine 04/21/2025 12:05 PM EST PTH, INTACT (HC) Routine 04/21/2025 10:5 1 AM EST VITAMIN D 25 HYDROXY Routine 04/21/2025 10:51 AM EST ALBUMIN Routine 04/21/2025 10:51 AM EST MAGNESIUM Routine 04/21/2025 10:51 AM EST PHOSPHATE ( PHOSPHORUS) Routine 04/21/2025 10:51 AM EST CALCIUM Routine 04/21/2025 10:51 AM EST CREATININE, BLOOD Routine 04/21/2025 10: 51 AM EST BUN Routine 04/21/2025 10:51 AM EST ELECTROLYTE PANEL Routine 04/21/2025 10: 51 AM EST CBC AND DIFFERENTIAL Routine 04/21/2025 10:51 AM EST from Last 3 Months Results * Protein, Total, Random Urine w/Creatinine (Protein/Creat Ratio) (04/21/2025 12:05 PM EST) Protein Urine Random 9 <12 mg/dL See order comments Protein/Creatin ine Ratio, Urine 0.10 <0.2 See order comments Comment: The spot urine protein:creatinine ratio may increase to 0.3 during normal . 04/21/2025 12:0 5 PM EST 04/21/2025 12:05 PM EST us Arpit Bundy MD LAB URINE ORDERABLES Final Re sult Performing Organization Address [place] Co de Phone Number [place] See order comments [place] [address] * Albumin, urine, random (04/21/2025 12:05 PM EST) Creatinine, Urine 90.66 mg/dL Se e order comments Urine Microalbumin 6.0 mg/L See order comments Microalbumin/Crea tinine Ratio 6.6 <30 ug/mg cr See order comments Comment: Albumin/Creatinine Ratio Reference Ranges: Normal: < 30 ug/mg creatinine Microalbuminuria: 30 - 300 ug/mg creatinine Clinical Albuminuria: > 300 ug/mg creatinine 04/21/2025 12:0 5 PM EST 04/21/2025 12:05 PM EST us Arpit Bundy MD LAB URINE ORDERABLES Final Re [facility] Performing Organization Address [place] Co de Phone Number [place] See order comments [place] [address] * Urinalysis with microscopic (04/21/2025 12:05 PM EST) Color Urine Yellow See orde r comments Appearance Urine Clear See order comments pH Urine 7.5 5.0 - 9.0 See order comments Glucose Urine Negative Negative mg/dL See order comments Blood, Urine Negative Negative See ord er comments Specific [place] Urine 1.015 1.005 - 1.025 See order comments Protein Urine Negative Neg-Trace mg/dL See order comments Ketones, Urine Negative Negative mg/dL See order comments Nitrite, Urine Negative Negative See o rder comments Leukocyte Esterase Urine Negative Negative See order comments RBC, Urine 0-2 0 - 2 /HPF See orde r comments WBC 0-5 0 - 5 /HPF See order comments Squamous Epithelial, Urine 0-2 0 - 2 /HPF See order comments Bacteria, Urine None Seen None Seen See order comments Hyaline Casts, Urine 0-2 0 - 2 /LPF See order comments 04/21/2025 12:0 5 PM EST 04/21/2025 12:05 PM EST us Arpit Bundy MD LAB URINE ORDERABLES Final Re sult Performing Organization Address [facility] Phone Number [place] See order comments [place] [address] * (ABNORMAL) Creatinine (04/21/2025 10:51 AM EST) Creatinine Serum 2.05(H) 0.5 - 1.4 mg/dL See order comments eGFR (Calc) 31 See orde r comments Comment: Chronic Kidney Disease: Estimated GFR < 60 mL/min/1.73m2 Severe Kidney Disease: Estimated GFR < 15 mL/min/1.73m2 04/21/2025 10:5 1 AM EST 04/21/2025 10:51 AM EST us Arpit Bundy MD LAB BLOOD ORDERABLES Final Re sult Performing Organization Address [facility] Phone Number [place] See order comments [place] [address] * (ABNORMAL) PTH, Intact (04/21/2025 10:51 AM EST) Parathyroid Hormone, Intact 96.0(H) 8.7 - 77.1 pg/mL See order comments 04/21/2025 10:5 1 AM EST 04/21/2025 10:51 AM EST us Arpit Bundy MD LAB BLOOD ORDERABLES Final Re sult Performing Organization Address [facility] Phone Number [place] See order comments [place] [address] * Vitamin D 25 Hydroxy (04/21/2025 10:51 AM EST) Vitamin D, 25-Hydroxy 31.1 >30 ng/mL See order comments Comment: Health Based Reference Values* < 20 ng/mL Deficient 20-30 ng/mL Insufficient > 30 ng/mL Sufficient *Genesis DUTTA. N Engl J Med. 2007;357:266-280 There is no well-established upper level of normal vitamin D levels. Some laboratories use 50 ng/mL as an upper limit of normal. However, toxicity is patient-dependent and may occur at any level. Careful correlation with the patient's presentation is necessary and, if there is concern for vitamin D toxicity, treatment should be considered irrespective of the serum level. Care must be taken in interpreting Vitamin D results from different laboratories and methodologies. Published data demonstrated that results from patients undergoing hemodialysis may show a negative bias when tested with various automated 25-OH vitamin D assays when compared to LC-MS/MS. When testing samples from patients whose predominant form of Vitamin D is Vitamin D2, such as patients receiving Vitamin D2 supplementation, results that are subtherapeutic should be confirmed with another method such as LC-MS/MS. 04/21/2025 10:5 1 AM EST 04/21/2025 10:51 AM EST us Arpit Bundy MD LAB BLOOD ORDERABLES Final Re sult [place] See order comments [place] [address] * (ABNORMAL) CBC and Differential (04/21/2025 10:51 AM EST) WBC 7.5 4.8 - 10.8 X10*3/uL See order comments RBC 3.11(L) 4.60 - 5.80 X10*6/uL See order comments Hgb 8.8(L) 14.0 - 18.0 g/dl See order comments Hematocrit 28.3(L) 42.0 - 52.0 % See order comments MCV 91.0 80.0 - 98.0 fL See order comments MCH 28.3 27.0 - 33.0 pg See order comments MCHC 31.1 31.0 - 36.0 g/dl See order comments RDW 14.6 11.0 - 16.0 % See order comments Platelets 144(L) 160 - 400 X10*3/uL See order comments MPV 9.5 9.4 - 12.4 fL See order comments Neutrophils % Auto 66.9 45 - 73 % See order comments Immature Granulocytes 0.4 0.0 - 0.4 % See order comments Lymphocytes Relative 24.0 20 - 40 % See order comments Monocytes 7.0 2 - 11 % See order comments Eosinophils Relative 1.6 0 - 4 % See order comments Basophils Relative 0.1 0 - 2 % See order comments nRBC Count 0.0 0.0 - 0.2 /100WBC See order comments Neutrophils Absolute 5.0 2.0 - 8.3 x10*3/uL See order comments Immature Grans (Absolute) 0.03 0.00 - 0.03 X10*3/uL See order comments Lymphocytes Absolute 1.8 1.2 - 4.9 X10*3/uL See order comments Monocytes Absolute 0.5 0.1 - 1.2 X10*3/uL See order comments Eosinophils Absolute 0.1 0.0 - 0.4 X10*3/uL See order comments Basophils Absolute 0.0 0.0 - 0.2 X10*3/uL See order comments NRBC Absolute 0.000 0.0 - 0.012 X10*3/uL See order comments 04/21/2025 10:5 1 AM EST 04/21/2025 10:51 AM EST Arpit Bundy MD LAB BLOOD ORDERABLES Final Re sult [place] See order comments [place] [address] * (ABNORMAL) BUN (04/21/2025 10:51 AM EST) BUN 40(H) 9 - 16 mg/dL See order comments 04/21/2025 10:5 1 AM EST 04/21/2025 10:51 AM EST Arpit Bundy MD LAB BLOOD ORDERABLES Final Re sult [place] See order comments [place] [address] * Phosphorus (04/21/2025 10:51 AM EST) Phosphorus, Serum 3.6 2.7 - 4.5 mg/dL See order comments 04/21/2025 10:5 1 AM EST 04/21/2025 10:51 AM EST us Arpit Bundy MD LAB BLOOD ORDERABLES Final Re sult Performing Organization Address [place] Phone Number [place] See order comments [place] [address] * Magnesium (04/21/2025 10:51 AM EST) Magnesium 2.2 1.6 - 2.6 mg/dL See order comments 04/21/2025 10:5 1 AM EST 04/21/2025 10:51 AM EST us Arpit Bundy MD LAB BLOOD ORDERABLES Final Re sult Performing Organization Address [place] Phone Number [place] See order comments [place] [address] * Calcium (04/21/2025 10:51 AM EST) Calcium 8.7 8.4 - 10.2 mg/dL See order comments 04/21/2025 10:5 1 AM EST 04/21/2025 10:51 AM EST us Arpit Bundy MD LAB BLOOD ORDERABLES Final Re sult Performing Organization Address [facility] Phone Number [place] See order comments [place] [address] * Albumin (04/21/2025 10:51 AM EST) Albumin 3.6 3.5 - 5.0 g/dL See order comments 04/21/2025 10:5 1 AM EST 04/21/2025 10:51 AM EST us Arpit Bundy MD LAB BLOOD ORDERABLES Final Re sult Performing Organization Address [facility] Phone Number [place] See order comments [place] [address] * (ABNORMAL) Electrolyte panel (04/21/2025 10:51 AM EST) Sodium 140 135 - 145 mmol/L See order comments Potassium 4.2 3.3 - 5.1 mmol/L See order comments Chloride 105 96 - 108 mmol/L See order comments Bicarbonate (CO2) 30(H) 22 - 29 mmol/L See order comments Anion Gap 9(L) 12 - 20 See order comments 04/21/2025 10:5 1 AM EST 04/21/2025 10:51 AM EST us Arpit Bundy MD LAB BLOOD ORDERABLES Final Re sult [place] See order comments [place] [address] from Last 3 Months Insurance [facility] ([id number]) [address] [place] [address] [facility] ([id number]) Care Teams Knife Edger Relationship Specialty Start Date End Date Name, MD Juan M [address] [place] [address] PCP - General Internal Medicine 09/29/20
--- OUTSIDE RECORDS SUMMARY | 2025-05-30 17:32 | XMS_ITS | Encounter Summary ---
Author Organization [employer] Address [address] [facility] 7t [place] [address] Care Team Providers Care School Patrol Name Role Phone Name, Juan M BLUE Primary Care Provider [phone] Gita Girard PharmD Unavailable [phone] Reason for Visit * Reason Comments Med Refill Encounter Details Date Type Department Care Team ([facility] st Contact Info) Description 01/29/2024 Refill [facility] [address] [place], [place] [phone] Name, MD Juan M [address] [place] [address] Social History Tobacco Use Types Packs/Day Years [...] Description 06/05/2025 10:30 AM EST Office Visit [facility] OPTOMETRY [address] [place] [address] Tarka, Leslie, OD [address] [place] [address] 06/23/2025 11:30 AM EST Medication Management [facility] MEDICINE [address] [place] [address] Gita Girard PharmD [address] [place] [address] 08/07/2025 10:15 AM EST Office Visit [facility] ADULT DENTAL [address] [place] [address] Cathi Saul documented as of this encounter [...] documented as of this encounter Care Teams School Patrol Relationship Specialty Start Date End Date Name, MD Juan M [address] [place] [address] PCP - General Family Medicine 01/21/19 Gita Girard PharmD [address] [place] [address] Pharmacist Internal Medicine 07/14/22 [employer] 10/28/24 documented as of this encounter
--- OUTSIDE RECORDS SUMMARY | 2025-05-30 17:32 | XMS_ITS | Encounter Summary ---
Author Organization [facility] [employer] [employer] Address [address] [place] [address] Phone Care Team Providers Care Fishing Captain Name Role Phone Anthony Ramirez MD Primary Care Provider Unav ailable Encounter Details Date Type Department Care Team (Late st Contact Info) Description 08/06/2018 Office Visit [facility] [address] [place], [place] [phone] Provider, MD Cindy [address] [place] [address] Social History Tobacco Use Types Packs/Day [...] on filedocumented in this encounter Care Teams Fishing Captain Relationship Specialty Start Date End Date Anthony Ramirez MD PCP - General 07/06/16 documented as of this encounter
--- OUTSIDE RECORDS SUMMARY | 2025-05-30 17:32 | XMS_ITS | Encounter Summary ---
Author Organization [facility] Address [address] [place] [address] Phone Care Team Providers Care Tactical Debriefer Officer Name Role Phone Anthony Ramirez MD Primary Care Provider Unav ailable Encounter Details Date Type Department Care Team (Late st Contact Info) Description 04/27/2018 Office Visit [facility] [address] [place], [place] [phone] Provider, MD Cindy [address] [place] [address] Social History Tobacco Use Types Packs/Day [...] on filedocumented in this encounter Care Teams Tactical Debriefer Officer Relationship Specialty Start Date End Date Anthony Ramirez MD PCP - General 07/06/16 documented as of this encounter
--- OUTSIDE RECORDS SUMMARY | 2025-05-30 17:32 | XMS_ITS | Encounter Summary ---
Author Organization [employer] Address [address] [facility] 7t [place] [address] Care Team Providers Care Airport Operations Crew Member Name Role Phone Name, Juan M BLUE Primary Care Provider [phone] Gita Girard PharmD Unavailable [phone] Reason for Visit * Reason Comments Med Refill Encounter Details Date Type Department Care Team (Late st Contact Info) Description 07/13/2023 Refill [facility] WALK-IN CENTER [address] [place], [place] [phone] Pia Berrios DO [address] [place], [place] [phone] Social History Tobacco Use Types Packs/Day Years [...] Description 06/05/2025 10:30 AM EST Office Visit [facility] OPTOMETRY [address] [place] [address] Tarka, Leslie, OD [address] [place] [address] 06/23/2025 11:30 AM EST Medication Management [facility] MEDICINE [address] [place] [address] Gita Girard PharmD [address] [place] [address] 08/07/2025 10:15 AM EST Office Visit [facility] ADULT DENTAL [address] [place] [address] Cathi Saul documented as of this encounter Goals Goal Patient Goal Type Associated Problems Recent Progress Patient-Stated? Author Patient will adhere to medication regimen General No Gita Girard PharmD Note: Take medications, including insulin, as prescribed. Hemoglobin A1c < 8 Result Component 6.6( 10:08 AM EST) No iGta Girard PharmD Record your blood sugar as [...] documented as of this encounter Care Teams Airport Operations Crew Member Relationship Specialty Start Date End Date Name, MD Juan M [address] [place] [address] PCP - General Family Medicine 01/21/19 Gita Girard PharmD [address] [place] [address] Pharmacist Internal Medicine 07/14/22 [employer] 10/28/24 documented as of this encounter
--- OUTSIDE RECORDS SUMMARY | 2025-05-30 17:32 | XMS_ITS | Encounter Summary ---
Author Organization [facility] Address [address] [place] [address] Phone Care Team Providers Care Research Group Director Name Role Phone Anthony Ramirez MD Primary Care Provider Unav ailable Encounter Details Date Type Department Care Team (Late st Contact Info) Description 08/20/2018 Office Visit [facility] [address] [place], [place] [phone] Provider, MD Cindy [address] [place] [address] Social History Tobacco Use Types Packs/Day [...] on filedocumented in this encounter Care Teams Research Group Director Relationship Specialty Start Date End Date Anthony Ramirez MD PCP - General 07/06/16 documented as of this encounter
--- OUTSIDE RECORDS SUMMARY | 2025-05-30 17:32 | XMS_ITS | Encounter Summary ---
Author Organization [facility] Address [address] [place] [address] Phone Care Team Providers Care Academic Affairs Vice President Name Role Phone Anthony Ramirez MD Primary Care Provider Unav ailable Encounter Details Date Type Department Care Team (Late st Contact Info) Description 01/17/2020 Abstract [facility] [address] [place], [place] [phone] Provider, MD Cindy [address] [place] [address] Social History Tobacco Use Types Packs/Day [...] on filedocumented in this encounter Care Teams Academic Affairs Vice President Relationship Specialty Start Date End Date Anthony Ramirez MD PCP - General 07/06/16 documented as of this encounter
--- OUTSIDE RECORDS SUMMARY | 2025-05-30 17:32 | XMS_ITS | Encounter Summary ---
Author Organization [facility] Address [address] [place] [address] Phone Care Team Providers Care Mutuel Department Manager Name Role Phone Anthony Ramirez MD Primary Care Provider Unav ailable Encounter Details Date Type Department Care Team (Late st Contact Info) Description 04/23/2018 [facility] Visit [facility] [address] [place], [place] [phone] Provider, MD Cindy [address] [place] [address] Social History Tobacco Use Types Packs/Day [...] on filedocumented in this encounter Care Teams Mutuel Department Manager Relationship Specialty Start Date End Date Anthony Ramirez MD PCP - General 07/06/16 documented as of this encounter
--- OUTSIDE RECORDS SUMMARY | 2025-05-30 17:32 | XMS_ITS | Clinical Summary ---
Author Organization [facility] Address [address] [place] [address] Phone Care Team Providers Care Extract Mixer Name Role Phone Anthony Ramirez MD [...] of Treatment Not on file Care Teams Extract Mixer Relationship Specialty Start Date End Date Anthony Ramirez MD PCP - General 07/06/16
--- OUTSIDE RECORDS SUMMARY | 2025-05-30 17:32 | XMS_ITS | Encounter Summary ---
Author Organization [employer] Address [address] [place] [address] 7t [place] [address] Care Team Providers Care Filler Feeder Name Role Phone Name, Juan M BLUE Primary Care Provider [phone] Gita Girard PharmD Unavailable [phone] Reason for Visit * Reason Comments Med Refill Encounter Details Date Type Department Care Team (Late st Contact Info) Description 09/25/2022 Refill [facility] MEDICINE [address] [place] [address] Name, MD Juan M [address] [place] [address] Chronic cough; Hypertension, unspecified type; Diabetes mellitus [...] Description 06/05/2025 10:30 AM EST Office Visit [facility] OPTOMETRY [address] [place] [address] Leslie Urrutia, OD [address] [place] [address] 06/23/2025 11:30 AM EST Medication Management [facility] MEDICINE [address] [place] [address] Gita Girard PharmD [address] [place] [address] 08/07/2025 10:15 AM EST Office Visit [facility] ADULT DENTAL [address] [place] [address] Cathi Saul documented as of this encounter [...] documented as of this encounter Care Teams Filler Feeder Relationship Specialty Start Date End Date Name, MD Juan M [address] [place] [address] PCP - General Family Medicine 8/5/19 Gita Girard, Kita [address] [place] [address] Pharmacist Internal Medicine 07/14/22 [employer] 10/28/24 documented as of this encounter
--- OUTSIDE RECORDS SUMMARY | 2025-05-30 17:32 | XMS_ITS | Encounter Summary ---
Author Organization [employer] Address [address] [facility] 7t [place] [address] Care Team Providers Care Thread Inspector Name Role Phone Name, Juan M BLUE Primary Care Provider [phone] Gita Girard PharmD Unavailable [phone] Encounter Details Date Type Department Care Team ([facility] st Contact Info) Description 12/13/2023 Telephone [facility] [address] [place], [place] [phone] Kneny Hopson, RONDAS [address] [place] [address] Social History Tobacco Use Types Packs/Day Years [...] 10:30 AM EST Office Visit [facility] [address] [place] [address] TarLeslie helm, OD [address] [place] [address] 06/23/2025 11:30 AM EST Medication Management [facility] [address] [place] [address] Gita Girard, DamonD [address] [place] [address] 08/07/2025 10:15 AM EST Office Visit [facility] [address] [place] [address] Cathi Saul documented as of this encounter [...] as of this encounter Care Teams Thread Inspector Relationship Specialty Start Date End Date Name, MD Juan M [address] [place] [address] PCP - General Family Medicine 01/21/19 Gita Girard PharmD [address] [place] [address] Pharmacist Internal Medicine 07/14/22 [employer] 10/28/24 documented as of this encounter
--- OUTSIDE RECORDS SUMMARY | 2025-05-30 17:33 | XMS_ITS | Encounter Summary ---
Author Organization [employer] Address [address] [facility] 7t [place] [address] Care Team Providers Care Kaia[place] Kura [place] Maori Name Role Phone Name, Juan M BLUE Primary Care Provider [phone] Gita Girard PharmD Unavailable [phone] Reason for Visit * Reason Comments Med Refill Encounter Details Date Type Department Care Team (Late st Contact Info) Description 06/14/2023 Refill [facility] [address] [place] [address] Name, MD Juan M [address] [place] [address] Chronic cough; Hypertension, unspecified type; Diabetes mellitus [...] Description 06/05/2025 10:30 AM EST Office Visit [facility] [address] [place] [address] TarkaLeslie, OD [address] [place] [address] 06/23/2025 11:30 AM EST Medication Management [facility] [address] [place] [address] Gita Girard, DamonD [address] [place] [address] 08/07/2025 10:15 AM EST Office Visit [facility] AD[facility] [address] [place] [address] Cathi Saul documented as of this encounter [...] documented as of this encounter Care Teams [place] Maori Relationship Specialty Start Date End Date Name, MD Juan M [address] [place] [address] PCP - General Family Medicine 01/21/19 Gita Girard PharmD [address] [place] [address] Pharmacist Internal Medicine 07/14/22 [employer] 10/28/24 documented as of this encounter
--- OUTSIDE RECORDS SUMMARY | 2025-05-30 17:33 | XMS_ITS | Encounter Summary ---
Author Organization [employer] Address [address] [facility] 7t [place] [address] Care Team Providers Care Supervisor Opening And Picking Name Role Phone Name, Juan M BLUE Primary Care Provider [phone] Gita Girard PharmD Unavailable [phone] Encounter Details Date Type Department Care Team ([facility] st Contact Info) Description 05/17/2023 Telephone [facility] [address] [place] [address] Name, MD Juan M [address] [place] [address] Social History Tobacco Use Types Packs/Day Years [...] Description 06/05/2025 10:30 AM EST Office Visit [facility] [address] [place] [address] TarkaLeslie, OD [address] [place] [address] 06/23/2025 11:30 AM EST Medication Management [facility] [address] [place] [address] Gita Girard PharmD [address] [place] [address] 08/07/2025 10:15 AM EST Office Visit [facility] ADULT DENTAL [address] [place] [address] Cathi Saul documented as of this encounter [...] as of this encounter Care Teams Supervisor Opening And Picking Relationship Specialty Start Date End Date Name, MD Juan M [address] [place] [address] PCP - General Family Medicine 01/21/19 Gita Girard PharmD [address] [place] [address] Pharmacist Internal Medicine 07/14/22 [employer] 10/28/24 documented as of this encounter
--- OUTSIDE RECORDS SUMMARY | 2025-05-30 17:33 | XMS_ITS | Encounter Summary ---
Author Organization [employer] Address [address] [place] [phone] Phone Care Team Providers Care Railroad Supervisor Of Engines Name Role Phone Anthony Ramirez MD Primary Care Provider Unav ailable Encounter Details Date Type Department Care Team (Late st Contact Info) Description 06/27/2017 Office Visit [facility] [address] [place], [place] [phone] Provider, MD Cindy [address] [place] [address] Social History Tobacco Use Types Packs/Day [...] on filedocumented in this encounter Care Teams Railroad Supervisor Of Engines Relationship Specialty Start Date End Date Anthony Ramirez MD PCP - General 07/06/16 documented as of this encounter
--- OUTSIDE RECORDS SUMMARY | 2025-05-30 17:33 | XMS_ITS | Encounter Summary ---
Author Organization [employer] Address [address] [place] [phone] Phone Care Team Providers Care It Account Manager Name Role Phone Anthony Ramirez MD Primary Care Provider Unav ailable Encounter Details Date Type Department Care Team (Late st Contact Info) Description 03/27/2017 Office Visit [facility] [address] [place], [place] [phone] Provider, MD Cindy [address] [place] [address] Social History Tobacco Use Types Packs/Day [...] filedocumented in this encounter Care Teams It Account Manager Relationship Specialty Start Date End Date Anthony Ramirez MD PCP - General 07/06/16 documented as of this encounter
--- OUTSIDE RECORDS SUMMARY | 2025-05-30 17:33 | XMS_ITS | Encounter Summary ---
Author Organization [employer] Address [address] [place] [phone] Phone Care Team Providers Care Tank Truck Driver Name Role Phone Anthony Ramirez MD Primary Care Provider Unav ailable Encounter Details Date Type Department Care Team (Late st Contact Info) Description 06/27/2017 Office Visit [facility] [address] [place], [place] [phone] Provider, MD Cindy [address] [place] [address] Social History Tobacco Use Types Packs/Day [...] on filedocumented in this encounter Care Teams Tank Truck Driver Relationship Specialty Start Date End Date Atnhony Ramirez MD PCP - General 07/06/16 documented as of this encounter
[2025-05-30 18:56] LABS: Folate 9.8 ng/mL (> or = 4.0); Vitamin B12 779 pg/mL (200-900)
--- NOTE | 2025-05-30 19:31 | PHA.MEDREC ---
Addendum entered by Kellie Salgado [facility] 05/31/25 11:31: [place] called back, confirmed he uses Novolog on a sliding scale and uses 10 units of Tresiba in the evening. Original Note: Pharmacy Consult ? Medication Reconciliation Pharmacy has completed the medication reconciliation Spoke with daughter jo Alvarado phone number: [phone]. Daughter could answer almost all the questions regarding the medication except regarding insulins and calcitriol. Daughter called [facility] (Andres? only speaks [place]) to confirm medications, but [facility] just gives him all the medications in the blister pack from [facility]. Daughter could not confirm insulins as her father manages this independently, with not assistance from [facility]. Daughter states will confirm insulin directions in the morning. Confirmed calcitriol as it has very request claims with patient's pharmacy. AM team to follow up in the morning.
[2025-05-30 22:13] LABS: Glucose, Whole Blood 253 mg/dL (60-115)
[2025-05-30] MEDS: 0.9 % Sodium Chloride Flush 3 ML SYRINGE IVFLUSH (22:15)
[2025-05-31 03:52] VITALS: BP 120/60; PULSE 62; RESP 16; TEMP 36.5; O2SAT 96
[2025-05-31 07:21] LABS: Hematocrit 27.3 % (42.0-52.0); Hemoglobin 9.0 g/dl (14.0-18.0); Mean Corpuscular HGB Conc 33.0 g/dl (31.0-36.0); Mean Corpuscular Hemoglobin 28.1 pg (27.0-33.0); Mean Corpuscular Volume 85.3 fL (80.0-98.0); NRBC Abs Auto 0.000 X10*3/uL (0.0-0.012); NRBC Pct Auto 0.0 /100WBC (0.0-0.2); Platelet Count 134 X10*3/uL (160-400); Red Blood Count 3.20 X10*6/uL (4.60-5.80); White Blood Count 9.0 X10*3/uL (4.8-10.8)
[2025-05-31 07:42] LABS: Ammonia 73 umol/L (13-55)
--- NOTE | 2025-05-31 07:47 | ECG_ITS ---
Test Reason : cp Blood Pressure : */* mmHG Vent. Rate : 127 BPM Atrial Rate : * BPM P-R Int : * ms QRS Dur : 94 ms QT Int : 328 ms P-R-T Axes : * -51 130 degrees QTcB Int : 476 ms Atrial fibrillation with rapid ventricular response with premature ventricular or aberrantly conducted complexes Left axis deviation Incomplete right bundle branch block Inferior infarct , age undetermined Anterior infarct , age undetermined ST & T wave abnormality, consider lateral ischemia Abnormal ECG When compared with ECG of 30-May-2025 11:48, Atrial fibrillation has replaced Electronic ventricular pacemaker Vent. rate has increased by 61 bpm Referred By: Ramón Tubbs Electronically Signed By: DANAY WEBER MD
[2025-05-31 07:50] LABS: Alanine Aminotransferase 12 U/L (0-40); Albumin Level 3.8 g/dL (3.5-5.0); Alkaline Phosphatase 58 U/L (39-117); Anion Gap 14 (12-20); Aspartate Amino Transferase 28 U/L (5-37); Blood Urea Nitrogen 53 mg/dL (9-16); Calcium 9.2 mg/dL (8.4-10.2); Carbon Dioxide 27 mmol/L (22-29); Chloride 103 mmol/L (96-108); Creatinine Clr Calc Pharmacy 28.5; Estimated Glomerular Filt Rate 33; Potassium 3.6 mmol/L (3.3-5.1); Sodium 140 mmol/L (135-145); Total Protein 6.4 g/dL (6.5-8.0)
[2025-05-31 07:56] VITALS: BP 135/64; PULSE 62; RESP 18; TEMP 36.5; O2SAT 99
[2025-05-31 08:00] LABS: Glucose, Whole Blood 173 mg/dL (60-115)
[2025-05-31] MEDS: Ferrous Sulfate 324 MG TABLET.DR PO (08:14)
--- NOTE | 2025-05-31 10:41 | MHC.CM.PN ---
IMM 05/31/25, pt. lives alone, he has [employer] for 38 hrs. per week. PCP confirmed: Juan M Rogers MD. HCP on file and confirmed: Cindy. For DME, pt. uses a cane. Transport home will be by his dtr or [employer]. DCP: home with services. CM to follow for DC needs.
[2025-05-31 11:15] LABS: Glucose, Whole Blood 179 mg/dL (60-115)
[2025-05-31 11:44] VITALS: BP 149/68; PULSE 64; RESP 16; TEMP 36.2; O2SAT 98
--- NOTE | 2025-05-31 13:55 | P.DS_ITS ---
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 Reportedly was acting abnormally yesterday morning, confused and repeating what the FRONTEND ENGINEER was saying without apparently understanding it. Today his daughter noted him to be confused as well as minimally responsive. Upon arrival in the ED, he reportedly had shaking of both upper extremities without LOC. He was awake right afterwards. Currently, he is pretty much at his baseline per his daughter. No new focal weakness. No history of seizures. No fever, chills, cough, chest pain, nausea, vomiting, or abdominal pain. His daughter says he was recently diagnosed with B12 deficiency and is supposed to be on injections but hasn't started yet. He denies loss of sensation. In the ED, SCr was around baseline at 2.35. UA bland. Glucose 452; normal pH and negative ketones. CT without any acute findings. verbally but awake oriented making eye contact family feels his facial droop and other deficits are at baseline no trauma or fall reported Hospital course Patient admitted to telemetry where monitor failed to demonstrate any acute dysrhythmias. Patient was initially ordered an EEG with neuro consult however this a.m. daughter feels patient is back to baseline and wishes to discharge as does patient. Of note his ammonia was 70 however given the resolution of his encephalopathy it is unclear whether this is the cause. Daughter feels these symptoms started after metolazone was added to his regimen. At this time patient and daughter wish to returned to home with services and follow up with Dr. Sue fields in the office. Ammonia can be repeated an EEG can be scheduled as outpatient or at the discretion of PCP. At this point in time he will be discharge to home and we will hold his metolazone. He is advised to follow up in the office the next available appointment. All cultures negative at the time of discharge Time Attestation Discharge Coordination Time (in mins): 35 Quality: Safe Use of Opioids Does Pt have an Active Cancer Diagnosis on the Problem List?: No Quality: Stroke Does the patient have a stroke diagnosis?: No Physical Exam Vital Signs: Vital Signs: Last Vital Signs Temp 97.2 F 05/31/25 11:44 Pulse 64 05/31/25 11:44 Resp 16 05/31/25 11:44 BP 149/68 H 05/31/25 11:44 Pulse Ox 98 05/31/25 11:44 O2 Del Method Room Air 05/31/25 11:44 BMI result Body Mass Index 23.6 Const: Other: Awake alert oriented x3 in no acute distress Resp: Other: Clear to auscultation bilaterally no rales rhonchi or wheezes Cardio: Other: No S4; positive S1-S2; no S3 murmurs rubs or gallops GI: Other: Soft nontender nondistended normoactive bowel sounds Neuro: Other: Awake alert oriented x3. Cranial nerves 2-12 grossly intact as tested. Motor is 5/5 all extremities. Sensation is intact. Gait steady Extrem: Other: No edema bilaterally DS: Data Data Completed and Pending Labs on day of discharge: Laboratory Results - last 24 hr 05/30/25 05/30/25 05/30/25 11:58 13:00 14:19 WBC RBC Hgb Hct MCV MCH MCHC RDW Plt Count MPV Absolute Nucleated RBC Nucleated RBC % (auto) Sodium Potassium Chloride Carbon Dioxide Anion Gap BUN Creatinine Estim Creat Clear Calc Estimated GFR POC Glucose Random Glucose Estimat Average Glucose 177 Hemoglobin A1c % 7.8 H Calcium Total Bilirubin AST ALT Alkaline Phosphatase Ammonia C-Reactive Protein 0.13 Total Protein Albumin Vitamin B12 Folate Procalcitonin 0.12 TSH 2.04 Urine Color Yellow Urine Appearance Clear Urine pH 6.0 Ur Specific Dickinson 1.015 Urine Protein Trace Urine Glucose (UA) 250 H Urine Ketones Negative Urine Blood Negative Urine Nitrite Negative Ur Leukocyte Esterase Negative Influenza Type A (PCR) NEGATIVE Influenza Type B (PCR) NEGATIVE RSV RNA Qual (PCR) NEGATIVE SARS-CoV-2 RNA (RT-PCR) NEGATIVE 05/30/25 05/30/25 05/30/25 14:59 16:33 17:51 WBC RBC Hgb Hct MCV MCH MCHC RDW Plt Count MPV Absolute Nucleated RBC Nucleated RBC % (auto) Sodium Potassium Chloride Carbon Dioxide Anion Gap BUN Creatinine Estim Creat Clear Calc Estimated GFR POC Glucose 343 H 269 H Random Glucose Estimat Average Glucose Hemoglobin A1c % Calcium Total Bilirubin AST ALT Alkaline Phosphatase Ammonia C-Reactive Protein Total Protein Albumin Vitamin B12 779 Folate 9.8 Procalcitonin TSH Urine Color Urine Appearance Urine pH Ur Specific Dickinson Urine Protein Urine Glucose (UA) Urine Ketones Urine Blood Urine Nitrite Ur Leukocyte Esterase Influenza Type A (PCR) Influenza Type B (PCR) RSV RNA Qual (PCR) SARS-CoV-2 RNA (RT-PCR) 05/30/25 05/31/25 05/31/25 22:09 07:10 07:52 WBC 9.0 RBC 3.20 L Hgb 9.0 L Hct 27.3 L MCV 85.3 MCH 28.1 MCHC 33.0 RDW 14.8 Plt Count 134 L MPV 9.5 Absolute Nucleated RBC 0.000 Nucleated RBC % (auto) 0.0 Sodium 140 Potassium 3.6 Chloride 103 Carbon Dioxide 27 Anion Gap 14 BUN 53 H Creatinine 1.96 H Estim Creat Clear Calc 28.5 Estimated GFR 33 POC Glucose 253 H 173 H Random Glucose 163 H Estimat Average Glucose Hemoglobin A1c % Calcium 9.2 Total Bilirubin 0.8 AST 28 ALT 12 Alkaline Phosphatase 58 Ammonia 73 H C-Reactive Protein Total Protein 6.4 L Albumin 3.8 Vitamin B12 Folate Procalcitonin TSH Urine Color Urine Appearance Urine pH Ur Specific Dickinson Urine Protein Urine Glucose (UA) Urine Ketones Urine Blood Urine Nitrite Ur Leukocyte Esterase Influenza Type A (PCR) Influenza Type B (PCR) RSV RNA Qual (PCR) SARS-CoV-2 RNA (RT-PCR) 05/31/25 11:11 WBC RBC Hgb Hct MCV MCH MCHC RDW Plt Count MPV Absolute Nucleated RBC Nucleated RBC % (auto) Sodium Potassium Chloride Carbon Dioxide Anion Gap BUN Creatinine Estim Creat Clear Calc Estimated GFR POC Glucose 179 H Random Glucose Estimat Average Glucose Hemoglobin A1c % Calcium Total Bilirubin AST ALT Alkaline Phosphatase Ammonia C-Reactive Protein Total Protein Albumin Vitamin B12 Folate Procalcitonin TSH Urine Color Urine Appearance Urine pH Ur Specific Dickinson Urine Protein Urine Glucose (UA) Urine Ketones Urine Blood Urine Nitrite Ur Leukocyte Esterase Influenza Type A (PCR) Influenza Type B (PCR) RSV RNA Qual (PCR) SARS-CoV-2 RNA (RT-PCR) Discharge Plan Discharge Anticipated Discharge Date/Time: 05/31/25 13:50 Patient Disposition: Home Health Service Discharge Diagnosis: Metabolic encephalopathy Referrals: Name,MD Juan M [Primary Care Provider, Internal Medicine] - 1 Week Discharge Medications: Continued acetaminophen 650 mg tablet extended release 650 mg PO Q12H PRN (Reason: for pain) Qty: 60 0RF fluticasone propionate 50 mcg/actuation spray,suspension 2 spray intranasal DAILY 30 Days Qty: 15.8 11RF Eliquis 2.5 mg tablet 2.5 mg PO BID Qty: 180 3RF carvedilol 3.125 mg Tablet 3.125 mg PO BID rosuvastatin 10 mg Tablet 10 mg PO DAILY omeprazole 20 mg capsule,delayed release(DR/EC) 20 mg PO DAILY docusate sodium 100 mg capsule 100 mg PO BID PRN (Reason: constipation) ferrous sulfate 325 mg (65 mg iron) tablet,delayed release (DR/EC) 325 mg PO DAILY spironolactone 25 mg tablet 12.5 mg PO DAILY insulin degludec [Tresiba FlexTouch U-100] 100 unit/mL (3 mL) insulin pen 10 unit subcut BEDTIME insulin aspart U-100 [Novolog FlexPen U-100 Insulin] 100 unit/mL (3 mL) insulin pen 8 unit subcut USEASDIRECTD Protocol: Insulin Correction Scale Less than or equal to 110 ---- Give (units): 0 111 to 150 Give (units): 0 151 to 200 Give (units): 2 201 to 250 Give (units): 4 251 to 300 Give (units): 6 301 to 350 Give (units): 8 Greater than 350 Give (units): 10 Call if Blood Glucose > : 350 torsemide 20 mg tablet 80 mg PO DAILY Qty: 120 0RF Rx Instructions: Dosage increased to 80 mg once daily (DME) blood sugar diagnostic Strip See Rx Instructions Not Applicable BID Qty: 10 Rx Instructions: As directed (DME) lancets 28 gauge misc See Rx Instructions topical BID Qty: 100 Rx Instructions: As directed (DME) blood-glucose meter [FreeStyle [place] Lite] Kit See Rx Instructions .ROUTE .MEDSUPPLY Qty: 1 Rx Instructions: As directed (DME) pen needle, diabetic [BD Ultra-Fine Short Pen Needle] 31 gauge x 5/16 needle See Rx Instructions subcut DAILY Qty: 1200 Rx Instructions: As directed amlodipine 2.5 mg tablet 2.5 mg PO DAILY calcitriol 0.25 mcg capsule 0.25 mcg PO Q OTHER DAY Discontinued metolazone 2.5 mg tablet 2.5 mg PO 3XW diclofenac sodium 1 % gel 4 g topical DAILY PRN (Reason: pain) Discharge Orders: Discharge Order (Routine); Ordered 05/31/25 Ordered By: Ramón Tubbs Diet: Advance to usual diet Activity on Discharge: As tolerated Stand Alone Forms: Patient Portal Discharge page Print Language: Polish Care Plan Goals: Continue all medications as outlined on discharge summary. Health Concerns: Stop your metolazone. Plan of Treatment: Follow up with PCP next available. He can discuss with your resuming meds and further workup. He can order EEG as outpatient Assessment: See discharge summary
--- NOTE | 2025-05-31 14:18 | PM.NEUROCN ---
History of Present Illness Data of Consult Service Date: 05/31/25 Primary Care Provider: Juan M Rogers MD [facility] Reason for consult: Encephalopathy 84 years old man with atrial fibrillation and a pacemaker who had previous history of a stroke many years ago causing left arm weakness came to hospital with confusion. Apparently he was different from his baseline not making sense and confused. There was no focal shaking type of symptom. There was no recent cold or fever. He has started taking metolazone in his family thought that that was the reason. Now he was back to baseline. There was no history of alcohol abuse Review of Systems Constitutional: Constitutional: Reports as per HPI [facility] Past Medical History Medical History (Updated 05/31/25 @ 14:19 by Angelica Frost MD) Tricuspid regurgitation Kidney disease Pleuritic chest pain Cough Hemoptysis History of CVA with residual deficit (~04/2005) History of COVID-19 (~06/2020) SDH (subdural hematoma) Essential hypertension Normally functioning cardiac pacemaker present (~2006) Atherosclerotic cardiovascular disease Hyperlipidemia GERD (gastroesophageal reflux disease) Pacemaker (~2006) Diabetes mellitus Persistent atrial fibrillation Family History Family History Father No problems noted. Mother No problems noted. Surgical History Surgical History History of heart artery stent History of craniotomy History of permanent cardiac pacemaker placement (~09/2006) Social History Social History Household Members: None Housing: Apartment Do you presently have visiting nurse or other home services: Yes Alcohol intake: unknown Comment: able to verbalize back the need to use call perez if he needs to get OOB Patient Tobacco Use Status: Former Tobacco user Second Hand Smoke Exposure: No Currently Displaying Signs/Symptoms of Drug Intoxication Withdrawal: No Advance Directives: Yes Advance Directives on File: Yes Advance Directives Date on File: 05/30/25 Do you have a plan to hurt others: No Plan Recently lost weight without trying: Unsure How much weight loss: 2-13 pounds Eating poorly because of decreased appetite: No Nutrition screen score: 3 Nutrition Risks: No Nutritional Risk Poor oral hygiene: No service: No Current occupational status: retired Meds Allergies Allergy/AdvReac Type Severity Reaction Status Date / Time NSAIDS due to CKD Allergy Unknown n/a Uncoded 05/30/25 11:47 Active Medications: Current Medications Acetaminophen (Acetaminophen 325 Mg Tablet) 650 mg PO Q6H PRN PRN Reason: Pain, Mild 1-3,fever,headache Amlodipine Besylate (Amlodipine Besylate 2.5 Mg Tablet) 2.5 mg PO DAILY [facility]; Protocol Last Admin: 05/31/25 08:13 Dose: 2.5 mg Apixaban (Apixaban 2.5 Mg Tablet) 2.5 mg PO BID [facility] Last Admin: 05/31/25 08:14 Dose: 2.5 mg Atorvastatin Calcium (Atorvastatin Calcium 40 Mg Tablet) 40 mg PO DAILY [facility] Last Admin: 05/31/25 08:13 Dose: 40 mg Calcitriol (Calcitriol 0.25 Mcg Capsule) 0.25 mcg PO Q2D LEYLA Calcium Carbonate (Calcium Carbonate 750 Mg Tab.Chew) 750 mg PO Q4H PRN PRN Reason: Heartburn Carvedilol (Carvedilol 3.125 Mg Tablet) 3.125 mg PO BID [facility]; Protocol Last Admin: 05/31/25 08:14 Dose: 3.125 mg Dextrose (Dextrose 50 % 25 Gm/50 Ml Syringe) 25 gm IVPUSH Q15M PRN; Protocol PRN Reason: per Hypoglycemia Standing Ord. Docusate Sodium (Docusate Sodium 100 Mg Capsule) 100 mg PO BID PRN PRN Reason: Constipation Ferrous Sulfate (Ferrous Sulfate 324 Mg Tablet.Dr) 324 mg PO DAILY [facility] Last Admin: 05/31/25 08:14 Dose: 324 mg Fluticasone Propionate (Fluticasone Propionate Nasal 16 Gm [place]) 2 spray NOSTRIL-B DAILY [facility] Last Admin: 05/31/25 08:14 Dose: Not Given Glucose (Glucose Gel 15 Gm Gel..Gram.) 15 gm PO Q15M PRN; Protocol PRN Reason: per Hypoglycemia Standing Ord. Insulin Human Lispro (Insulin Lispro 100 Unit/Ml 3 Ml Vial) 0 unit SUBCUT QIDACHS [facility]; Protocol Last Admin: 05/31/25 12:38 Dose: 2 unit Magnesium Hydroxide (Milk Of Magnesia 30 Ml Oral.Susp) 30 ml PO DAILY PRN PRN Reason: Constipation Melatonin (Melatonin 3 Mg Tablet) 6 mg PO BEDTIME PRN PRN Reason: Insomnia Omeprazole (Omeprazole 20 Mg Capsule.) 20 mg PO DAILY@0630 [facility] Last Admin: 05/31/25 04:22 Dose: 20 mg Ondansetron HCl (Ondansetron Hcl 4 Mg/2 Ml Vial) 4 mg IVPUSH Q8H PRN PRN Reason: Nausea and Vomiting Sodium Chloride (0.9 % Sodium Chloride Flush 3 Ml Syringe) 3 ml IVFLUSH QSHIFT [facility] Last Admin: 05/31/25 08:14 Dose: Not Given Spironolactone (Spironolactone 25 Mg Tablet) 12.5 mg PO DAILY [facility]; Protocol Last Admin: 05/31/25 08:13 Dose: 12.5 mg Home Medications ?Medication ?Instructions ?Recorded ?Confirmed ?Last Taken ?Type carvedilol 3.125 mg tablet 3.125 mg PO BID 07/02/20 05/30/25 05/29/25 History rosuvastatin 10 mg tablet 10 mg PO DAILY 07/02/20 05/30/25 05/29/25 History blood sugar diagnostic #10 ea 12/18/20 01/09/25 Unknown History lancets 28 gauge #100 ea 12/18/20 01/09/25 Unknown History blood-glucose meter (FreeStyle #1 ea 04/02/21 01/09/25 Unknown History [place] Lite kit) pen needle, diabetic 31 gauge x #1,200 ea 04/02/21 01/09/25 Unknown History 16 (BD Ultra-Fine Short Pen Needle) omeprazole 20 mg capsule,delayed 20 mg PO DAILY indegestion 05/30/22 05/30/25 05/29/25 History release amlodipine 2.5 mg tablet 2.5 mg PO DAILY 07/26/22 05/30/25 05/29/25 History calcitriol 0.25 mcg capsule 0.25 mcg PO Q OTHER DAY 07/26/22 05/30/25 05/30/25 History insulin aspart U-100 100 unit/mL 8 unit subcut USEASDIRECTD 05/16/23 05/31/25 Unknown History (3 mL) subcutaneous pen (Novolog FlexPen U-100 Insulin aspart) insulin degludec 100 unit/mL (3 10 unit subcut BEDTIME 05/16/23 05/31/25 Unknown History mL) subcutaneous pen (Tresiba FlexTouch U-100 insulin) spironolactone 25 mg tablet 12.5 mg PO DAILY 05/16/23 05/30/25 05/29/25 History docusate sodium 100 mg capsule 100 mg PO BID PRN constipation 05/30/25 05/30/25 05/29/25 History ferrous sulfate 325 mg (65 mg 325 mg PO DAILY 05/30/25 05/30/25 05/29/25 History iron) tablet,delayed release Physical Exam Vital Signs: Vital Signs: Last Vital Signs Temp 97.2 F 05/31/25 11:44 Pulse 64 05/31/25 11:44 Resp 16 05/31/25 11:44 BP 149/68 H 05/31/25 11:44 Pulse Ox 98 05/31/25 11:44 O2 Del Method Room Air 05/31/25 11:44 BMI result Body Mass Index 23.6 Neuro: Other: Mental Status: He is alert and awake with normal spontaneity of speech fluency comprehension and affect. He has following commands. Affect is normal. Cranial Nerves: CN II: Visual arevalo full to confrontation, visual acuity intact. CN III, IV, : Pupils equal, round, reactive to light and accommodation. Extraocular movements are normal. CN V: Facial sensation is normal. CN VII: Facial movements symmetrical. CN VIII: Hearing intact to bedside conversation is normal. CN IX, X: Palate elevates symmetrically. CN XI: Shoulder shrug and head turn symmetrical. CN XII: Tongue midline without atrophy or fasciculations. Motor: Left arm is moderately weak. Deep tendon reflexes are trace to absent with flexor plantars. Extrapyramidal: Full facial expressions and blinking. No rigidity. Movements are appropriate with no tremor or abnormality. Speech: Normal; no dysarthria or tremor. Results Labs 05/31/25 07:10 05/31/25 07:10 Labs: Short CBC 05/31/25 Range/Units 07:10 WBC 9.0 (4.8-10.8) X10*3/uL Hgb 9.0 L (14.0-18.0) g/dl Hct 27.3 L (42.0-52.0) % Plt Count 134 L (160-400) X10*3/uL BMP 05/31/25 07:10 Sodium 140 Potassium 3.6 Chloride 103 Carbon Dioxide 27 BUN 53 H Creatinine 1.96 H Calcium 9.2 Liver Function 05/31/25 Range/Units 07:10 Total Bilirubin 0.8 (0.0-1.0) mg/dL AST 28 (5-37) U/L ALT 12 (0-40) U/L Alkaline Phosphatase 58 (39-117) U/L Albumin 3.8 (3.5-5.0) g/dL Urine 05/30/25 Range/Units 14:19 Urine Color Yellow Urine Appearance Clear Urine pH 6.0 (5.0-9.0) Ur Specific [place] 1.015 (1.005-1.025) Urine Protein Trace (Neg-Trace) mg/dL Urine Glucose (UA) 250 H (Negative) mg/dL [place] [id number] CT Scan Report Signed Patient: Dk Sepulveda MR#: [id number] : 1940 Acct:[id number] Age/Sex: 84 / M ADM Date: 05/30/25 Loc: HO.ED Attending Dr: Ordering Physician: Madai Bentley NP Date of Service: 05/30/25 Procedure(s): CT head/brain wo IV con Accession Number(s): [id number] cc: Name,Juan M BLUE; Madai Bentley NP~ Report Number: [id number]: Total DLP = 734.00 mGy-cm Reason for Exam: ams EXAMINATION: CT HEAD WITHOUT CONTRAST CLINICAL INFORMATION: Altered mental status. COMPARISON: 04/12/2023, 04/26/2019. TECHNIQUE: Contiguous axial imaging was performed from the skull base to vertex without intravenous administration of contrast. This CT examination was performed using dose optimization techniques as appropriate, variously including the following: *Automated exposure control *Adjustment of mA and/or kV according to patient size (this includes techniques or standardized protocols for targeted exams where dose is matched to indication/reason for exam; i.e. extremities or head) *Use of iterative reconstruction technique FINDINGS: There is no evidence of intracranial hemorrhage or extra-axial fluid collection. There is no mass effect, or edema. No CT evidence of acute territorial infarct. Ventricles, sulci, and cisterns are normal in size and configuration for patient age. Dennis cisterna magna. No hydrocephalus. No midline shift. Negative hyperdense MCA sign. Negative insular ribbon sign. Patchy periventricular and deep white matter hypoattenuation is consistent with moderate to severe small vessel ischemic changes. 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 Normal pituitary. Atheromatous calcification of the bilateral carotid siphons and V4 segments vertebral arteries bilaterally. Globes and orbital contents image normally. Left-sided ciliary body calcification present. Extracranial soft tissues demonstrate focal dermal thickening of the right frontal scalp, unchanged from the prior examination and nonspecific. The paranasal sinuses, mastoid air cells, and tympanic cavities are normally aerated. No suspicious bony abnormalities. There has been an old right frontoparietal craniotomy. There are no acute fractures evident. CT/CT head/brain wo IV con IMPRESSION: No acute intracranial abnormality. Stable chronic findings. Assessment and Plan (1) Encephalopathy: Qualifiers: Encephalopathy type: unspecified encephalopathy Qualified Code(s): G93.40 - Encephalopathy, unspecified Status: Acute 84 years old man with extensive chronic microvascular ischemic type of disease on CAT scan of brain with no significant difference from his previous can 2 years ago came to hospital with an episode of confusion with no obvious etiology. I would consider epileptic encephalopathy to be the main concern. Outpatient EEG is recommended with instructions to not drive and take appropriate precautions to avoid any accidents. Procedures Date of Service Date of Service: 05/31/25
--- NOTE | 2025-05-31 15:51 | W.MHC.F2F ---
Service Date Service Date: 05/31/25 Encounter Date of encounter: 05/31/25 Encounter: Acute hospitalization Reasons for Services Signs and symptoms assessed: Assess mental status and overall functional status Reason for chcf: medication management and medication treatment Homebound: Leaving the home is medically contraindicated at this time without the asist of a device and/or another person due th the listed conditions above and below. Reason homebound: unsteady gait / fall risk and unable to drive Certification: Based on the above findings, I certify that this patient is confined to the home and needs intermittent chcf care, physical therapy and/or speech therapy, or continues to need occupational therapy. The patient is under my care, and I have initiated the establishment of the plan of care. The patient will be followed by a physician who will periodically review the plan of care. Time Spent With Patient Time: Total time managing care of this patient today ____ minutes.
--- NOTE | 2025-05-31 15:55 | MHC.CM.PN ---
Pt. medically cleared to [place], he will go home via private transport and have [facility] care services from [facility].
== END 2025-05-31 15:00 | disposition home health service (06) | DRG 71 ==
LOC: HO.ED 12:13 → HO.EDOVER 17:18 → HO.IMC 20:55
PROVIDERS: Registered Nurse Emergency; Admitting Provider Family Medicine; Emergency Provider Emergency Medicine; PCP Internal Medicine Geriatric Medicine; Visit Provider Hospitalist
DX: G93.41 Metabolic encephalopathy (principal); I69.354 Hemiplegia and hemiparesis following cerebral infarction affecting left non-dominant side; I25.10 Atherosclerotic heart disease of native coronary artery without angina pectoris; Z20.822 Contact with and (suspected) exposure to COVID-19; I12.9 Hypertensive chronic kidney disease with stage 1 through stage 4 chronic kidney disease, or unspecified chronic kidney disease; E11.22 Type 2 diabetes mellitus with diabetic chronic kidney disease; Z66 Do not resuscitate; E78.5 Hyperlipidemia, unspecified; N18.30 Chronic kidney disease, stage 3 unspecified; Z95.5 Presence of coronary angioplasty implant and graft; Z95.0 Presence of cardiac pacemaker; Z87.891 Personal history of nicotine dependence; Z79.4 Long term (current) use of insulin; Z79.01 Long term (current) use of anticoagulants; Z79.51 Long term (current) use of inhaled steroids; Z79.899 Other long term (current) drug therapy
CPT/HCPCS: 36415; 70450; 80053; 81003; 82010; 82140; 82607; 82746; 82803; 82947; 83036; 83090; 83735; 83921; 84145; 84443; 85025; 85027; 86140; 87637; 93005; 99222; 99285; J1953; J7120

== ENCOUNTER → 2025-05-30 11:48 | Outpatient (BNV) | payer OTHER, SELFPAY | PROVIDERS: Emergency Provider Emergency Medicine; PCP Internal Medicine Geriatric Medicine; Visit Provider Internal Medicine Cardiovascular Disease | DX: R94.31 Abnormal electrocardiogram [ECG] [EKG] (principal); Z95.0 Presence of cardiac pacemaker | CPT/HCPCS: 93010 ==

== ENCOUNTER → 2025-05-30 11:57 | Outpatient (BNV) | payer OTHER, SELFPAY | PROVIDERS: Emergency Provider Emergency Medicine; PCP Internal Medicine Geriatric Medicine; Visit Provider Radiology Diagnostic Radiology | DX: R41.82 Altered mental status, unspecified (principal) | CPT/HCPCS: 70450 ==

== ENCOUNTER → 2025-05-30 17:08 | Outpatient (BNV) | payer OTHER, SELFPAY | PROVIDERS: Admitting Provider Family Medicine; Emergency Provider Emergency Medicine; PCP Internal Medicine Geriatric Medicine; Visit Provider Family Medicine | DX: G93.40 Encephalopathy, unspecified (principal); I48.19 Other persistent atrial fibrillation; I25.10 Atherosclerotic heart disease of native coronary artery without angina pectoris | CPT/HCPCS: 99222; 99239; G0180 ==

== ENCOUNTER → 2025-05-31 07:47 | Outpatient (BNV) | payer OTHER, SELFPAY | PROVIDERS: Admitting Provider Family Medicine; Emergency Provider Emergency Medicine; PCP Internal Medicine Geriatric Medicine; Visit Provider Internal Medicine Cardiovascular Disease | DX: I48.91 Unspecified atrial fibrillation (principal); I45.10 Unspecified right bundle-branch block | CPT/HCPCS: 93010 ==

== ENCOUNTER → 2025-05-31 09:56 | Outpatient (BNV) | payer OTHER, SELFPAY | PROVIDERS: Admitting Provider Family Medicine; Emergency Provider Emergency Medicine; PCP Internal Medicine Geriatric Medicine; Visit Provider Psychiatry & Neurology Neurology | DX: G93.40 Encephalopathy, unspecified (principal) | CPT/HCPCS: 99222 ==